=== PATIENT | female | born 1970 | race Caucasian/White ===

== ENCOUNTER 2017-12-17 23:49 | Inpatient (IN) | payer OTHER ==
[~2017-12-17] VITALS: Ht 180.3 cm; Wt 75.3 kg
[~2017-12-17 23:49] MED LIST: PRZC/10 PO
[2017-12-17 23:50] VITALS: Ht 180.3 cm; Wt 75.3 kg
[2017-12-18] VITALS (7 sets, daily range): BP systolic 107–134; BP diastolic 59–107; PULSE 57–130; TEMP 36.7–37.2; O2SAT 92–100
[2017-12-18] MEDS ORDERED: ONDANSETRON INJ 2 MG/ML 2 ML VIAL IV STA (00:07)
[2017-12-18] MEDS ORDERED: MULTI-VITAMIN INFUSION INJ 10 ML, THIAMINE HCL INJ 100 MG, FoLIC ACID INJ 1 MG in SODIU... IV ONE (00:15)
[2017-12-18] MEDS ORDERED: SODIUM CHLORIDE 0.9% 1000ML 1,000 ML IV ONE (00:15)
[2017-12-18] MEDS ORDERED: PANTOprazole INJ 40 MG in SYRINGE 0 ML IV ONE (00:15)
[2017-12-18 00:25] LABS: HEMATOCRIT 40.7 % (37-47); HEMOGLOBIN 13.7 g/dL (12.0-16.0); MEAN CELL VOLUME 99.8 fL (80-100); MEAN CORPUSCULAR HEMOGLOBIN 33.6 pg (25-34); MEAN CORPUSCULAR HGB CONC 33.7 g/dl (32-36); MEAN PLATELET VOLUME 10.4 fL (7.4-10.4); PLATELET COUNT 167 K/uL (130-400); RED CELL DISTRIBUTION WIDTH CV 14.6 % (11.5-14.5); RED CELL DISTRIBUTION WIDTH SD 53.5 fL (36.4-46.3); WHITE BLOOD COUNT 4.45 K/uL (4.8-10.8)
[2017-12-18 00:37] LABS: INR 1.2 (0.9-1.1); PTT PATIENT 28.2 SECONDS (21.0-31.0)
[2017-12-18 00:55] LABS: ALBUMIN 3.5 gm/dl (3.4-5.0); ALKALINE PHOSPHATASE 185 U/L (45-117); ALT/SGPT 179 U/L (12-78); AST/SGOT 296 U/L (15-37); BLOOD UREA NITROGEN 2 mg/dl (7-18); CALCIUM 7.6 mg/dl (8.5-10.1); CARBON DIOXIDE 26 mmol/L (21-32); CREATININE 0.75 mg/dl (0.60-1.20); GLUCOSE 140 mg/dl (70-99); LIPASE 163 U/L (73-393); POTASSIUM 3.6 mmol/L (3.5-5.1); SODIUM 141 mmol/L (136-145); TOTAL PROTEIN 8.4 gm/dl (6.4-8.2)
[2017-12-18 01:18] LABS: BASO % 0.9 %; BASO ABS # 0.04 K/uL (0-0.2); EOS % 0.4 %; EOS ABS # 0.02 K/uL (0-0.5); IG# 0.01 K/uL (0.00-0.02); LYMPH % 56.4 %; LYMPH ABS # 2.51 K/uL (1.2-3.4); MONO % 5.6 %; MONO ABS # 0.25 K/uL (0.11-0.59); NEUT % 36.5 %; NEUT ABS # 1.62 K/uL (1.4-6.5)
--- NOTE | 2017-12-18 02:55 | EMERGENCY ROOM VISIT NOTE ---
History First contact with patient: 23:54 Chief Complaint: VOMITING Stated Complaint: ALCOHOL WITHDRAWL Nursing Triage Summary: pt arrives ALS from home. pt has been 1/2 to 1 bottle of Vodka per day drinker for 20+ years. pt quit cold turkey 2 days ago. pt reports unable to keep anything down. pt with nausea and vomiting, tremors. pt reports vomiting blood and bloody diarrhea. pt hx of kidney failure and liver cirohsis. coffee ground emesis. pt c/o kidney, liver and abdominal pain 10. pt received 4mg IV Zofran and 2mg IV Ativan prehospital, 750ml NSS infused prehospital. pt had recent admission to [facility] for same symptoms. History of Present Illness The patient is a 47 year old female who presents to the Emergency Room with complaints of concerns for alcohol withdrawal. The patient is well-known to this emergency department. She is an alcoholic and admits to drinking one half to 1 full bottle of vodka daily. The patient reports that her last drink was 2 days ago. She felt shaky and contacted an ambulance. She has been having nausea with vomiting today. The patient states that she did vomit red material , and was concerned that it may have been blood. She does have a history of cirrhosis and hepatitis. She was given Zofran and Ativan prehospital. She feels significantly improved after these interventions and rates her current discomfort as 0/10. The patient evidently has had 2 admissions in the past 3-1/ 2 weeks to [facility] for alcohol withdrawal symptoms. She did leave AGAINST MEDICAL ADVICE from her first admission there, and on subsequent readmission she refused to speak with a drug and alcohol counselor while at their facility. Because of her comorbid medical conditions she is difficult to place in a drug and alcohol rehabilitation facility. The patient does not report fever or chills. She does have some intermittent abdominal and chest discomfort with the vomiting, however this is not currently present. There is a past history of bipolar disorder and poly-pharmacologic drug abuse. Review of Systems More than 10 systems were reviewed and otherwise negative with the exception of history of present illness. Past Medical/Surgical History Medical Problems: (1) Alcohol dependence (2) Alcohol withdrawal (3) Alcoholism (4) Chronic pancreatitis (5) Chronic renal failure, stage 3 (moderate) (6) Cirrhosis, alcoholic (7) Depression not otherwise specified (8) Fall (9) Liver cancer (10) Mild recurrent major depression (11) Past Psych Meds (12) s/p cholecystectomy (13) Viral hepatitis C Family History Patient reports no known family medical history. Social History Smoking Status: Current Every Day Smoker Alcohol Use: heavy Drug Use: cocaine Marital Status: single, Housing Status: lives with family Occupation Status: unemployed Current/Historical Medications No Active Prescriptions or Reported Meds Physical Exam Vital Signs Date Time Temp Pulse Resp B/P (MAP) Pulse Ox O2 Delivery O2 Flow Rate FiO2 12/18/17 05:06 60 16 100 Nasal Cannula 2.0 12/18/17 05:01 100/74 12/18/17 04:36 67 15 100 Nasal Cannula 2.0 12/18/17 04:31 114/81 12/18/17 04:06 50 15 99 Nasal Cannula 2.0 12/18/17 04:01 76 20 96/60 99 Nasal Cannula 2.0 12/18/17 03:31 75 20 102/72 99 Nasal Cannula 2.0 12/18/17 03:01 75 16 114/79 99 Nasal Cannula 2.0 12/18/17 02:31 46 15 104/73 99 Nasal Cannula 2.0 12/18/17 02:01 88 20 111/70 99 Nasal Cannula 2.0 12/18/17 01:37 79 12/18/17 01:31 52 16 121/69 100 Nasal Cannula 2.0 12/18/17 01:01 81 18 110/76 98 Nasal Cannula 2.0 12/18/17 00:33 98 Nasal Cannula 2.0 12/18/17 00:31 78 18 112/75 98 Nasal Cannula 2.0 12/18/17 00:31 78 Room Air 12/18/17 00:25 73 12/18/17 00:17 70 12 111/76 97 Room Air 12/17/17 23:50 37.0 70 20 95/69 96 Room Air Physical Exam VITALS: Vitals are noted on the nurse's note and reviewed by myself. Vital signs stable. GENERAL: White female who appears anxious but otherwise cooperative. HEAD: Normocephalic atraumatic. MOUTH: Mucous membranes moist. Tonsils are not enlarged. Pharynx without erythema, blood, or exudate. Uvula midline. Airway patent. NECK: Supple without nuchal rigidity. No lymphadenopathy. No thyromegaly. Cervical spine is nontender. HEART: Regular rate and rhythm without murmurs gallops or rubs. LUNGS: Clear to auscultation bilaterally without wheezes, rales or rhonchi. No retractions or accessory muscle use. ABDOMEN: Positive normal bowel sounds x 4. Soft, nontender, without masses or organomegaly. No guarding or rebound tenderness. MUSCULOSKELETAL: No muscle atrophy, erythema, or edema noted. Full range of motion in all extremities. NEURO: Patient was alert and oriented to person place and time. CN II through XII grossly intact. No focal neurological deficits. Deep tendon reflexes 2+ throughout. Medical Decision & Procedures Laboratory Results 12/18/17 00:09 Red Blood Count 4.08, Mean Corpuscular Volume 99.8, Mean Corpuscular Hemoglobin 33.6, Mean Corpuscular Hemoglobin Concent 33.7, Mean Platelet Volume 10.4, Neutrophils (%) (Auto) 36.5, Lymphocytes (%) (Auto) 56.4, Monocytes (%) (Auto) 5.6, Eosinophils (%) (Auto) 0.4, Basophils (%) (Auto) 0.9, Neutrophils # (Auto) 1.62, Lymphocytes # (Auto) 2.51, Monocytes # (Auto) 0.25, Eosinophils # (Auto) 0.02, Basophils # (Auto) 0.04 12/18/17 00:09 Test 12/18/17 00:09 12/18/17 00:40 12/18/17 02:55 White Blood Count 4.45 K/uL (4.8-10.8) Red Blood Count 4.08 M/uL (4.2-5.4) Hemoglobin 13.7 g/dL (12.0-16.0) Hematocrit 40.7 % (37-47) Mean Corpuscular Volume 99.8 fL (80-100) Mean Corpuscular Hemoglobin 33.6 pg (25-34) Mean Corpuscular Hemoglobin Concent 33.7 g/dl (32-36) Platelet Count 167 K/uL (130-400) Mean Platelet Volume 10.4 fL (7.4-10.4) Neutrophils (%) (Auto) 36.5 % Lymphocytes (%) (Auto) 56.4 % Monocytes (%) (Auto) 5.6 % Eosinophils (%) (Auto) 0.4 % Basophils (%) (Auto) 0.9 % Neutrophils # (Auto) 1.62 K/uL (1.4-6.5) Lymphocytes # (Auto) 2.51 K/uL (1.2-3.4) Monocytes # (Auto) 0.25 K/uL (0.11-0.59) Eosinophils # (Auto) 0.02 K/uL (0-0.5) Basophils # (Auto) 0.04 K/uL (0-0.2) RDW Standard Deviation 53.5 fL (36.4-46.3) RDW Coefficient of Variation 14.6 % (11.5-14.5) Immature Granulocyte % (Auto) 0.2 % Immature Granulocyte # (Auto) 0.01 K/uL (0.00-0.02) Red Blood Cell Morphology Unremarkable Prothrombin Time 12.6 SECONDS (9.0-12.0) Prothromb Time International Ratio 1.2 (0.9-1.1) Activated Partial Thromboplast Time 28.2 SECONDS (21.0-31.0) Partial Thromboplastin Ratio 1.1 D-Dimer 370 ug/L FEU (0-500) Anion Gap 10.0 mmol/L (3-11) Est Creatinine Clear Calc Drug Dose 101.4 ml/min Estimated GFR () 108.5 Estimated GFR (Non- 93.6 BUN/Creatinine Ratio 2.3 (10-20) Calcium Level 7.6 mg/dl (8.5-10.1) Magnesium Level 1.7 mg/dl (1.8-2.4) Total Bilirubin 1.0 mg/dl (0.2-1) Aspartate Amino Transf (AST/SGOT) 296 U/L (15-37) Alanine Aminotransferase (ALT/SGPT) 179 U/L (12-78) Alkaline Phosphatase 185 U/L (45-117) Troponin I < 0.015 ng/ml (0-0.045) Total Protein 8.4 gm/dl (6.4-8.2) Albumin 3.5 gm/dl (3.4-5.0) Globulin 4.9 gm/dl (2.5-4.0) Albumin/Globulin Ratio 0.7 (0.9-2) Lipase 163 U/L (73-393) Salicylates Level < 1.7 mg/dl (2.8-20) Acetaminophen Level < 2 ug/ml (10-30) Ethyl Alcohol mg/dL 286.0 mg/dl (0-3) Ammonia 24.0 umol/L (11-32) Urine Color YELLOW Urine Appearance CLEAR (CLEAR) Urine pH 8.0 (4.5-7.5) Urine Specific [place] 1.011 (1.000-1.030) Urine Protein NEG (NEG) Urine Glucose (UA) NEG (NEG) Urine Ketones NEG (NEG) Urine Occult Blood NEG (NEG) Urine Nitrite NEG (NEG) Urine Bilirubin NEG (NEG) Urine Urobilinogen NEG (NEG) Urine Leukocyte Esterase NEG (NEG) Urine Opiates Screen NEG (NEG) Urine Methadone, Qualitative NEG (NEG) Urine Barbiturates NEG (NEG) Urine Phencyclidine (PCP) Level NEG (NEG) Ur Amphetamine/Methamphetamine NEG (NEG) MDMA (Ecstasy) Screen NEG (NEG) Urine Benzodiazepines Screen POS (NEG) Urine Cocaine Metabolite NEG (NEG) Urine Marijuana (THC) NEG (NEG) Medications Administered Medications (Trade) Dose Ordered Sig/John Route Start Time Stop Time Status Last Admin Dose Admin Multivitamins 10 ml/Thiamine HCl 100 mg/Folic Acid 1 mg/Sodium Chloride 1,011.2 ml @ 200 mls/ hr Q5H4M ONCE IV 12/18/17 00:15 12/18/17 05:18 DC 12/18/17 01:11 200 MLS/HR Sodium Chloride 1,000 ml @ 999 mls/hr Q1H1M ONCE IV 12/18/17 00:15 12/18/17 01:15 DC 12/18/17 00:22 999 MLS/HR Ondansetron HCl (Zofran Inj) 4 mg NOW STAT IV 12/18/17 00:07 12/18/17 00:11 DC 12/18/17 01:29 4 MG Pantoprazole Sodium 40 mg/ Syringe 10 ml @ 5 mls/min NOW ONCE IV 12/18/17 00:15 12/18/17 00:18 DC 12/18/17 01:11 5 MLS/MIN Lorazepam (Ativan Inj) 1 mg NOW STAT IV 12/18/17 04:26 12/18/17 04:27 DC 12/18/17 04:39 1 MG ED Course Physical exam and history were performed. Nursing notes, EMR, and Medication List were personally reviewed. Patient appears to be an alcoholic who is concerned about withdrawal. She has had nausea and vomiting today, and reportedly has not had alcohol in the past 48 hours. IV access x2 was established. Labs were obtained. The patient was given 1 L normal saline and 1 L multivitamin solution. The patient was given additional Zofran here in the department. Because of the reported history of vomiting she was given IV Protonix. She was placed on a hall monitor. Chest x-ray was performed. EKG did not show acute ischemic event per my interpretation. Written consent was performed to receive records from [facility], which were obtained and reviewed. She has had recent CT scan of the head, abdomen, and pelvis, as well as ultrasound of her abdomen, which did not show significant acute findings in the past month. The patient's blood work is as above and was reviewed. She does not have a significantly elevated white blood cell count or gross anemia. She does have a history of thrombocytopenia in the past, however her platelet count is normal today. Her INR is 1.2. D-dimer and troponin x1 are both negative. Glucose is 140. Magnesium is 1.7. AST 296 and ALT 179 with an alk phos of 185 are noted. This appears consistent with her history of hepatitis. Drug of abuse screen is negative and urine is without obvious signs of infection. The patient's ethyl alcohol is 286 despite her claim that she has not had anything to drink in the past 2 days. I discussed options of care with both the patient as well as with case management. The patient is likely best served by appropriate rehabilitation facility, however we are not able to provide the services here. We attempted to place the patient via referral to [facility], however they were not willing to accept the patient because they do not have beds. On reevaluation the patient was sleeping comfortably in her bed. She has had several episodes of low pulse ox while sleeping, which could be related to apnea. Chest x-ray was reviewed by myself without showing obvious pneumonia or other chest etiology for this. The patient does not appear well for discharge home. She is a chronic alcoholic and is requesting services. She was given an additional dose of Ativan after several hours to help prevent seizing. My concern is that as her alcohol decreases she will end up in DTs. I also have concern for a strong mental health component to her visits recently. She continues to have high levels of alcohol between [facility] and [facility], stating that she has not been drinking for several days. Overall the patient case was discussed with the on-call hospitalist who agreed to evaluate the patient. Please see their dictation for further patient course , plan, and disposition. The chart was completed utilizing [employer] Speech Voice Recognition Software. Grammatical errors, random word insertions, pronoun errors, and incomplete sentences are an occasional consequence of this system due to software limitations, ambient noise, and hardware issues. Any formal questions or concerns about the content, text, or information contained within the body of this dictation should be directly addressed to the provider for clarification. . Medical Decision Differential diagnosis: Etiologies such as alcohol intoxication, toxicologic, infection, hypoglycemia, electrolyte abnormalities, cardiac sources, intracerebral event, neurologic, as well as others were entertained. Impression Primary Impression: Alcoholism Departure Information Prescriptions No Active Prescriptions or Reported Meds Referrals No Doctor, Assigned (PCP) Patient Instructions My [facility]
[2017-12-18] MEDS ORDERED: LORAZEPAM 2 MG/ML 1 ML VIAL IV STA (04:26)
[2017-12-18] MEDS ORDERED: GABAPENTIN 800 MG TAB PO SCH (05:45)
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
[2017-12-18] MEDS: NSS + 20MEQ KCL 1000ML 1,000 ML IV SCH ×3 (06:43→23:09)
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
[2017-12-18] MEDS ORDERED: GABAPENTIN 800MG LOADING DOSE PO ONE (08:00)
[2017-12-18] MEDS: LORAZEPAM 2 MG/ML 1 ML VIAL IV PRN ×3 (08:46→23:18)
[2017-12-18] MEDS ORDERED: THIAMINE HCL 100 MG TAB PO SCH (09:00)
[2017-12-18] MEDS: NEPHROCAPS PO SCH (10:13)
[2017-12-18] MEDS: ONDANSETRON INJ 2 MG/ML 2 ML VIAL IV PRN ×2 (11:13→23:18)
[2017-12-18] MEDS ORDERED: THIAMINE HCL INJ 200 MG in SODIUM CHLORIDE 0.9% 50ML 50 ML IV ONE (13:00)
[2017-12-18] MEDS: MAGNESIUM SULFATE 1GM / D5W 100 ML IV SCH ×2 (13:40→14:36)
[2017-12-18] MEDS: GABAPENTIN 400MG Q6H DOSE PO SCH ×2 (14:36→20:01)
[2017-12-18] MEDS: PANTOprazole INJ 40 MG in SYRINGE 0 ML IV SCH (20:01)
[2017-12-18] MEDS: THIAMINE HCL INJ 200 MG in SODIUM CHLORIDE 0.9% 50ML 50 ML IV SCH (20:01)
[2017-12-19 03:22] VITALS: BP 130/82; PULSE 79; TEMP 37.1; O2SAT 97
[2017-12-19] MEDS: GABAPENTIN 400MG Q8H DOSE PO SCH ×3 (04:17→20:22)
[2017-12-19] MEDS: LORAZEPAM 2 MG/ML 1 ML VIAL IV PRN ×8 (05:13→22:21)
--- NOTE | 2017-12-19 05:23 | Progress Note ---
Subjective Date of Service: Dec 18, 2017. Subjective Pt evaluation today including: conversation w/ patient, physical exam, chart review, lab review, review of studies (CT abd/pelvis and u/s of abdomen from [facility]), review of inpatient medication list Pain: high epigastric region PO Intake: fair at best Voiding: no voiding problems patient with significant tremors/shakiness and waxing/waning BPs during my visit she was awake/alert during the encounter she voiced a desire to go to inpatient etoh rehab following this hospitalization she has had 2 recent hospital stays at [facility] for etoh withdrawal her last inpatient rehab stay was about 6 months ago in [facility] she has struggled w/ etoh for many years, drinking hard liquor daily Problem List Medical Problems: (1) Alcoholism Status: Acute (2) Fracture of first metatarsal bone of right foot Status: Acute Objective Vital Signs Date Time Temp Pulse Resp B/P (MAP) Pulse Ox O2 Delivery O2 Flow Rate FiO2 12/18/17 16:00 Nasal Cannula 2.0 12/18/17 15:08 37.2 83 20 122/79 (93) 96 Room Air 12/18/17 12:51 61 18 127/76 (93) 100 Nasal Cannula 2.0 12/18/17 11:29 36.9 62 18 113/80 (91) 99 Nasal Cannula 2.0 12/18/17 11:07 37.0 130 20 134/107 (116) 92 Room Air 12/18/17 08:30 Nasal Cannula 2.0 12/18/17 07:57 36.7 57 18 131/82 (98) 99 Nasal Cannula 3.0 12/18/17 06:01 66 14 113/79 100 12/18/17 05:41 71 14 99 Nasal Cannula 2.0 12/18/17 05:38 73 12/18/17 05:31 125/79 12/18/17 05:11 65 14 100 Nasal Cannula 2.0 12/18/17 05:06 60 16 100 Nasal Cannula 2.0 12/18/17 05:01 100/74 12/18/17 04:36 67 15 100 Nasal Cannula 2.0 12/18/17 04:31 114/81 12/18/17 04:06 50 15 99 Nasal Cannula 2.0 12/18/17 04:01 76 20 96/60 99 Nasal Cannula 2.0 12/18/17 03:31 75 20 102/72 99 Nasal Cannula 2.0 12/18/17 03:01 75 16 114/79 99 Nasal Cannula 2.0 12/18/17 02:31 46 15 104/73 99 Nasal Cannula 2.0 12/18/17 02:01 88 20 111/70 99 Nasal Cannula 2.0 12/18/17 01:37 79 12/18/17 01:31 52 16 121/69 100 Nasal Cannula 2.0 12/18/17 01:01 81 18 110/76 98 Nasal Cannula 2.0 12/18/17 00:33 98 Nasal Cannula 2.0 12/18/17 00:31 78 18 112/75 98 Nasal Cannula 2.0 12/18/17 00:31 78 Room Air 12/18/17 00:25 73 12/18/17 00:17 70 12 111/76 97 Room Air 12/17/17 23:50 37.0 70 20 95/69 96 Room Air Physical Exam General Appearance: + mild distress (severe tremors, shakiness) ENT: pharynx normal Neck: no JVD Respiratory/Chest: lungs clear, no respiratory distress, no accessory muscle use Cardiovascular: regular rate, rhythm, no gallop, no murmur Abdomen: normal bowel sounds, soft, no organomegaly, + tenderness (epigastric region), + pertinent finding (no apparent ascites) Extremities: no pedal edema Neurologic/Psychiatric: alert, oriented x 3, + pertinent finding (severe tremors) Laboratory Results Last 24 Hours Test 12/18/17 00:09 12/18/17 00:40 12/18/17 02:55 White Blood Count 4.45 K/uL Red Blood Count 4.08 M/uL Hemoglobin 13.7 g/dL Hematocrit 40.7 % Mean Corpuscular Volume 99.8 fL Mean Corpuscular Hemoglobin 33.6 pg Mean Corpuscular Hemoglobin Concent 33.7 g/dl Platelet Count 167 K/uL Mean Platelet Volume 10.4 fL Neutrophils (%) (Auto) 36.5 % Lymphocytes (%) (Auto) 56.4 % Monocytes (%) (Auto) 5.6 % Eosinophils (%) (Auto) 0.4 % Basophils (%) (Auto) 0.9 % Neutrophils # (Auto) 1.62 K/uL Lymphocytes # (Auto) 2.51 K/uL Monocytes # (Auto) 0.25 K/uL Eosinophils # (Auto) 0.02 K/uL Basophils # (Auto) 0.04 K/uL RDW Standard Deviation 53.5 fL RDW Coefficient of Variation 14.6 % Immature Granulocyte % (Auto) 0.2 % Immature Granulocyte # (Auto) 0.01 K/uL Red Blood Cell Morphology Unremarkable Prothrombin Time 12.6 SECONDS Prothromb Time International Ratio 1.2 Activated Partial Thromboplast Time 28.2 SECONDS Partial Thromboplastin Ratio 1.1 D-Dimer 370 ug/L FEU Sodium Level 141 mmol/L Potassium Level 3.6 mmol/L Chloride Level 105 mmol/L Carbon Dioxide Level 26 mmol/L Anion Gap 10.0 mmol/L Blood Urea Nitrogen 2 mg/dl Creatinine 0.75 mg/dl Est Creatinine Clear Calc Drug Dose 101.4 ml/min Estimated GFR () 108.5 Estimated GFR (Non- 93.6 BUN/Creatinine Ratio 2.3 Random Glucose 140 mg/dl Calcium Level 7.6 mg/dl Magnesium Level 1.7 mg/dl Total Bilirubin 1.0 mg/dl Aspartate Amino Transf (AST/SGOT) 296 U/L Alanine Aminotransferase (ALT/SGPT) 179 U/L Alkaline Phosphatase 185 U/L Troponin I < 0.015 ng/ml Total Protein 8.4 gm/dl Albumin 3.5 gm/dl Globulin 4.9 gm/dl Albumin/Globulin Ratio 0.7 Lipase 163 U/L Salicylates Level < 1.7 mg/dl Acetaminophen Level < 2 ug/ml Ethyl Alcohol mg/dL 286.0 mg/dl Ammonia 24.0 umol/L Urine Color YELLOW Urine Appearance CLEAR Urine pH 8.0 Urine Specific [place] 1.011 Urine Protein NEG Urine Glucose (UA) NEG Urine Ketones NEG Urine Occult Blood NEG Urine Nitrite NEG Urine Bilirubin NEG Urine Urobilinogen NEG Urine Leukocyte Esterase NEG Urine Opiates Screen NEG Urine Methadone, Qualitative NEG Urine Barbiturates NEG Urine Phencyclidine (PCP) Level NEG Ur Amphetamine/Methamphetamine NEG MDMA (Ecstasy) Screen NEG Urine Benzodiazepines Screen POS Urine Cocaine Metabolite NEG Urine Marijuana (THC) NEG Assessment and Plan 47yo female - 1. etoh withdrawal - gabapentin protocol; ativan IV prn. IVF. 2. alcoholic gastritis - IV PPI twice a day. Change to clears from full liquids. 3. alcoholism - social work aware of desire to attend inpatient rehab after discharge. Increase thiamine to 200mg BID. Folic acid. MVI. Gabapentin and ativan. Fluids. 4. HepC cirrhosis - no signs of decompensation at this time. 5. hypomagnesemia - replace IV, repeat mag level am. 6. extra beats - could be due to #5 and stress of #1 - continue telemetry monitoring. 7. abnormal LFTs - 2nd to alcohol and underlying liver disease - repeat LFTs am for stability. 8. FEN - IVF, clears, bmp/mag am. 9. DVT proph - if platelets are stable in am then start lovenox 40mg daily. Continued [facility] stay due to: inadequate po fluid intake, multiple IV medications needed Discharge planning: uncertain
[2017-12-19 05:58] LABS: HEMATOCRIT 33.2 % (37-47); MEAN CELL VOLUME 101.5 fL (80-100); MEAN CORPUSCULAR HEMOGLOBIN 33.6 pg (25-34); MEAN CORPUSCULAR HGB CONC 33.1 g/dl (32-36); RED CELL DISTRIBUTION WIDTH SD 52.2 fL (36.4-46.3); WHITE BLOOD COUNT 2.69 K/uL (4.8-10.8)
[2017-12-19 06:17] LABS: MEAN PLATELET VOLUME 10.8 fL (7.4-10.4); PLATELET COUNT 93 K/uL (130-400)
[2017-12-19 06:19] LABS: BASO % 0.7 %; BASO ABS # 0.02 K/uL (0-0.2); EOS % 2.6 %; EOS ABS # 0.07 K/uL (0-0.5); LYMPH % 46.8 %; LYMPH ABS # 1.26 K/uL (1.2-3.4); MONO % 9.3 %; MONO ABS # 0.25 K/uL (0.11-0.59); NEUT % 40.6 %; NEUT ABS # 1.09 K/uL (1.4-6.5)
[2017-12-19 06:34] LABS: ALBUMIN 2.6 gm/dl (3.4-5.0); CALCIUM 7.1 mg/dl (8.5-10.1); CREATININE 0.63 mg/dl (0.60-1.20); POTASSIUM 4.2 mmol/L (3.5-5.1); TOTAL PROTEIN 6.5 gm/dl (6.4-8.2)
[2017-12-19 06:52] VITALS: BP 140/78; PULSE 84; TEMP 36.9; O2SAT 93
[2017-12-19] MEDS: NSS + 20MEQ KCL 1000ML 1,000 ML IV SCH ×3 (07:07→22:14)
[2017-12-19] MEDS: ONDANSETRON INJ 2 MG/ML 2 ML VIAL IV PRN ×2 (08:07→16:05)
[2017-12-19] MEDS: NEPHROCAPS PO SCH (08:11)
[2017-12-19] MEDS: THIAMINE HCL INJ 200 MG in SODIUM CHLORIDE 0.9% 50ML 50 ML IV SCH ×2 (08:11→20:24)
[2017-12-19] MEDS: PANTOprazole INJ 40 MG in SYRINGE 0 ML IV SCH ×2 (08:11→20:22)
[2017-12-19] MEDS: SUCRALFATE 1 GM/10 ML UDC PO SCH ×3 (11:50→20:23)
[2017-12-19 12:02] VITALS: BP 128/75; PULSE 49; TEMP 37; O2SAT 95
[2017-12-19 15:49] VITALS: BP 145/92; PULSE 64; TEMP 37.1; O2SAT 93
[2017-12-19 19:22] VITALS: BP 136/84; PULSE 52; TEMP 37.1; O2SAT 95
[2017-12-20] VITALS (8 sets, daily range): BP systolic 105–151; BP diastolic 59–94; PULSE 40–89; TEMP 36.4–37.1; O2SAT 96–99
[2017-12-20] MEDS: LORAZEPAM 2 MG/ML 1 ML VIAL IV PRN ×5 (00:08→19:56)
--- NOTE | 2017-12-20 05:28 | Progress Note ---
Subjective Date of Service: Dec 19, 2017. Subjective Pt evaluation today including: conversation w/ patient, physical exam, chart review, lab review, review of inpatient medication list Pain: epigastric but a little better PO Intake: tolerating some clears Voiding: no voiding problems tele stable overnight still quite shaky but no worse than yesterday no further emesis feels weak when she tries to walk Problem List Medical Problems: (1) Alcoholism Status: Acute (2) Fracture of first metatarsal bone of right foot Status: Acute Review of Systems Constitutional: No fever Respiratory: No shortness of breath, No dyspnea on exertion Cardiac: No chest pain Abdomen: + pain, No nausea, No vomiting, No diarrhea Objective Vital Signs Date Time Temp Pulse Resp B/P (MAP) Pulse Ox O2 Delivery O2 Flow Rate FiO2 12/19/17 08:00 Room Air 12/19/17 06:52 36.9 84 16 140/78 (98) 93 Room Air 12/19/17 03:22 37.1 79 17 130/82 (98) 97 Room Air 12/18/17 23:59 Room Air 12/18/17 23:11 37.1 86 20 107/59 (75) 96 12/18/17 19:53 37.1 92 19 107/59 (75) 94 Room Air 12/18/17 16:00 Nasal Cannula 2.0 12/18/17 15:08 37.2 83 20 122/79 (93) 96 Room Air 12/18/17 12:51 61 18 127/76 (93) 100 Nasal Cannula 2.0 12/18/17 11:29 36.9 62 18 113/80 (91) 99 Nasal Cannula 2.0 12/18/17 11:07 37.0 130 20 134/107 (116) 92 Room Air Physical Exam General Appearance: + mild distress (very shaky, tremulous/tremors) ENT: pharynx normal Neck: no JVD Respiratory/Chest: lungs clear, no respiratory distress, no accessory muscle use Cardiovascular: regular rate, rhythm, no gallop, no murmur Abdomen: normal bowel sounds, soft, no organomegaly, + tenderness (high epigastric region but not as severe as yesterday) Extremities: no pedal edema Neurologic/Psychiatric: alert, oriented x 3, + pertinent finding (significant tremors) Laboratory Results Last 24 Hours Test 12/19/17 05:31 White Blood Count 2.69 K/uL Red Blood Count 3.27 M/uL Hemoglobin 11.0 g/dL Hematocrit 33.2 % Mean Corpuscular Volume 101.5 fL Mean Corpuscular Hemoglobin 33.6 pg Mean Corpuscular Hemoglobin Concent 33.1 g/dl Platelet Count 93 K/uL Mean Platelet Volume 10.8 fL Neutrophils (%) (Auto) 40.6 % Lymphocytes (%) (Auto) 46.8 % Monocytes (%) (Auto) 9.3 % Eosinophils (%) (Auto) 2.6 % Basophils (%) (Auto) 0.7 % Neutrophils # (Auto) 1.09 K/uL Lymphocytes # (Auto) 1.26 K/uL Monocytes # (Auto) 0.25 K/uL Eosinophils # (Auto) 0.07 K/uL Basophils # (Auto) 0.02 K/uL RDW Standard Deviation 52.2 fL RDW Coefficient of Variation 14.0 % Immature Granulocyte % (Auto) 0.0 % Immature Granulocyte # (Auto) 0.00 K/uL Platelet Estimate DECREASED Sodium Level 138 mmol/L Potassium Level 4.2 mmol/L Chloride Level 107 mmol/L Carbon Dioxide Level 26 mmol/L Anion Gap 5.0 mmol/L Blood Urea Nitrogen 3 mg/dl Creatinine 0.63 mg/dl Est Creatinine Clear Calc Drug Dose 120.7 ml/min Estimated GFR () 122.1 Estimated GFR (Non- 105.3 BUN/Creatinine Ratio 5.4 Random Glucose 89 mg/dl Calcium Level 7.1 mg/dl Magnesium Level 1.8 mg/dl Total Bilirubin 1.9 mg/dl Aspartate Amino Transf (AST/SGOT) 159 U/L Alanine Aminotransferase (ALT/SGPT) 112 U/L Alkaline Phosphatase 143 U/L Total Protein 6.5 gm/dl Albumin 2.6 gm/dl Globulin 3.9 gm/dl Albumin/Globulin Ratio 0.7 Assessment and Plan 47yo female - 1. etoh withdrawal - ongoing. Cont gabapentin protocol; ativan IV prn. IVF. Supportive care. 2. alcoholic gastritis - IV PPI twice a day. Add carafate 1gm qid. Stay w/ clears for today. 3. alcoholism - social work aware of desire to attend inpatient rehab after discharge. Cont thiamine 200mg BID. Folic acid. MVI. Gabapentin and ativan. Fluids. 4. HepC cirrhosis - no signs of decompensation at this time. 5. hypomagnesemia - resolved. 6. extra beats - largely resolved. 7. abnormal LFTs - 2nd to alcohol and underlying liver disease - repeat LFTs today modestly improved. 8. FEN - IVF, clears, bmp am. 9. DVT proph - platelets took large drop overnight; defer on chemical means; SCDs only for now. 10. pancytopenia - 2nd to etoh/liver disease? repeat cbc in am. PT, OT evals requested Continued [facility] stay due to: inadequate po fluid intake, multiple IV medications needed Discharge planning: uncertain
[2017-12-20] MEDS: NSS + 20MEQ KCL 1000ML 1,000 ML IV SCH ×2 (05:39→18:47)
[2017-12-20 07:20] LABS: HEMATOCRIT 34.2 % (37-47); HEMOGLOBIN 11.4 g/dL (12.0-16.0); MEAN CELL VOLUME 102.4 fL (80-100); MEAN CORPUSCULAR HEMOGLOBIN 34.1 pg (25-34); MEAN CORPUSCULAR HGB CONC 33.3 g/dl (32-36); RED CELL DISTRIBUTION WIDTH CV 13.8 % (11.5-14.5); RED CELL DISTRIBUTION WIDTH SD 51.6 fL (36.4-46.3); WHITE BLOOD COUNT 3.11 K/uL (4.8-10.8)
[2017-12-20 07:27] LABS: INR 1.3 (0.9-1.1)
[2017-12-20] MEDS: SUCRALFATE 1 GM/10 ML UDC PO SCH ×4 (07:29→19:59)
[2017-12-20] MEDS: GABAPENTIN 400MG Q12H DOSE PO SCH ×2 (07:30→19:56)
[2017-12-20] MEDS: NEPHROCAPS PO SCH (07:30)
[2017-12-20] MEDS: PANTOprazole INJ 40 MG in SYRINGE 0 ML IV SCH ×2 (07:30→19:59)
[2017-12-20] MEDS: THIAMINE HCL INJ 200 MG in SODIUM CHLORIDE 0.9% 50ML 50 ML IV SCH ×2 (07:31→20:01)
[2017-12-20 07:40] LABS: ALBUMIN 2.7 gm/dl (3.4-5.0); CALCIUM 7.8 mg/dl (8.5-10.1); CREATININE 0.64 mg/dl (0.60-1.20); POTASSIUM 4.1 mmol/L (3.5-5.1); TOTAL PROTEIN 6.9 gm/dl (6.4-8.2)
[2017-12-20 08:29] LABS: BASO ABS # 0.03 K/uL (0-0.2); EOS % 4.5 %; EOS ABS # 0.14 K/uL (0-0.5); IG# 0.01 K/uL (0.00-0.02); LYMPH % 47.3 %; LYMPH ABS # 1.47 K/uL (1.2-3.4); MEAN PLATELET VOLUME 11.4 fL (7.4-10.4); MONO % 6.4 %; NEUT % 40.5 %; NEUT ABS # 1.26 K/uL (1.4-6.5); PLATELET COUNT 80 K/uL (130-400)
[2017-12-20] MEDS: ONDANSETRON INJ 2 MG/ML 2 ML VIAL IV PRN (09:58)
[2017-12-20] MEDS: OXYBUTYNIN CHLORIDE 5 MG TAB PO PRN (19:56)
[2017-12-21] VITALS (7 sets, daily range): BP systolic 90–127; BP diastolic 60–84; PULSE 38–61; TEMP 36.6–36.9; O2SAT 96–97
[2017-12-21] MEDS: LORAZEPAM 2 MG/ML 1 ML VIAL IV PRN ×2 (00:33→07:29)
--- NOTE | 2017-12-21 06:44 | Progress Note ---
Subjective Date of Service: Dec 20, 2017. Subjective Pt evaluation today including: conversation w/ patient, physical exam, chart review, lab review, review of inpatient medication list Pain: abd pain resolved PO Intake: requests diet advancement Voiding: voiding difficulty (urinary frequency ) tele stable although having periods of significant sinus bradycardia when she is in deep sleep NO AV block or pauses she overall feels better less shakiness no dyspnea still wondering/thinking about inpatient alcohol rehab she is VERY weak today Problem List Medical Problems: (1) Alcoholism Status: Acute (2) Fracture of first metatarsal bone of right foot Status: Acute Review of Systems Constitutional: + fatigue, No fever Respiratory: No shortness of breath, No dyspnea on exertion Cardiac: No chest pain Abdomen: No pain Objective Vital Signs Date Time Temp Pulse Resp B/P (MAP) Pulse Ox O2 Delivery O2 Flow Rate FiO2 12/20/17 19:58 36.5 89 16 140/76 (97) 96 Room Air 12/20/17 15:39 36.5 52 18 145/66 (92) 98 Room Air 12/20/17 12:12 37.1 52 18 143/93 (110) 97 Room Air 12/20/17 08:00 Room Air 12/20/17 06:37 36.6 41 18 151/59 (89) 97 Room Air 12/20/17 03:39 36.4 41 20 105/94 (98) 98 Room Air 12/20/17 00:05 36.8 47 21 150/80 (103) 99 Room Air 12/20/17 00:01 Room Air Physical Exam General Appearance: no apparent distress, + pertinent finding (awake, alert, oriented; less shaky today ) ENT: pharynx normal Neck: no JVD Respiratory/Chest: lungs clear, no respiratory distress, no accessory muscle use Cardiovascular: regular rate, rhythm, no gallop, no murmur Abdomen: normal bowel sounds, non tender, soft, no organomegaly Extremities: no pedal edema Neurologic/Psychiatric: alert, oriented x 3 Laboratory Results Last 24 Hours Test 12/20/17 07:01 12/20/17 17:00 White Blood Count 3.11 K/uL Red Blood Count 3.34 M/uL Hemoglobin 11.4 g/dL Hematocrit 34.2 % Mean Corpuscular Volume 102.4 fL Mean Corpuscular Hemoglobin 34.1 pg Mean Corpuscular Hemoglobin Concent 33.3 g/dl Platelet Count 80 K/uL Mean Platelet Volume 11.4 fL Neutrophils (%) (Auto) 40.5 % Lymphocytes (%) (Auto) 47.3 % Monocytes (%) (Auto) 6.4 % Eosinophils (%) (Auto) 4.5 % Basophils (%) (Auto) 1.0 % Neutrophils # (Auto) 1.26 K/uL Lymphocytes # (Auto) 1.47 K/uL Monocytes # (Auto) 0.20 K/uL Eosinophils # (Auto) 0.14 K/uL Basophils # (Auto) 0.03 K/uL RDW Standard Deviation 51.6 fL RDW Coefficient of Variation 13.8 % Immature Granulocyte % (Auto) 0.3 % Immature Granulocyte # (Auto) 0.01 K/uL Prothrombin Time 13.1 SECONDS Prothromb Time International Ratio 1.3 Sodium Level 138 mmol/L Potassium Level 4.1 mmol/L Chloride Level 107 mmol/L Carbon Dioxide Level 23 mmol/L Anion Gap 8.0 mmol/L Blood Urea Nitrogen 4 mg/dl Creatinine 0.64 mg/dl Est Creatinine Clear Calc Drug Dose 89.3 ml/min Estimated GFR () 121.4 Estimated GFR (Non- 104.8 BUN/Creatinine Ratio 6.4 Random Glucose 83 mg/dl Calcium Level 7.8 mg/dl Total Bilirubin 1.8 mg/dl Aspartate Amino Transf (AST/SGOT) 115 U/L Alanine Aminotransferase (ALT/SGPT) 95 U/L Alkaline Phosphatase 143 U/L Total Protein 6.9 gm/dl Albumin 2.7 gm/dl Globulin 4.2 gm/dl Albumin/Globulin Ratio 0.6 Urine Color YELLOW Urine Appearance CLEAR Urine pH 8.0 Urine Specific [place] 1.006 Urine Protein NEG Urine Glucose (UA) NEG Urine Ketones NEG Urine Occult Blood NEG Urine Nitrite NEG Urine Bilirubin NEG Urine Urobilinogen NEG Urine Leukocyte Esterase TRACE Urine WBC (Auto) 1-5 /hpf Urine RBC (Auto) 0-4 /hpf Urine Hyaline Casts (Auto) 0 /lpf Urine Epithelial Cells (Auto) 5-10 /lpf Urine Bacteria (Auto) NEG Assessment and Plan 47yo female - 1. etoh withdrawal - ongoing but appears improved. No evidence of DTs. Cont gabapentin protocol; ativan IV prn. IVF. Supportive care. 2. alcoholic gastritis - IV PPI twice a day and carafate 1gm qid. Imrpoved. Advance diet as tolerated today. 3. alcoholism - social work aware of desire to attend inpatient rehab after discharge. Cont thiamine 200mg BID. Folic acid. MVI. Gabapentin and ativan. Fluids. 4. HepC cirrhosis - no signs of decompensation at this time. She is aware that in order to treat this she has to achieve sobriety. 5. hypomagnesemia - resolved. 6. extra beats - largely resolved. 7. abnormal LFTs - 2nd to alcohol and underlying liver disease - repeat LFTs today again modestly improved although INR modestly worse. Consider supplementing vitamin K. LFTs and INR in am. 8. FEN - IVF, advance diet to fulls for lunch, then regular for dinner. Labs am. 9. DVT proph - platelets took large drop overnight; defer on chemical means; SCDs only for now. 10. pancytopenia - 2nd to etoh/liver disease? repeat cbc in am. today's levels seem to be plateauing. 11. urinary frequency/urgency - u/a not suspicious for UTI. Bladder scan PVR < 25cc. Ditropan prn ordered. 12. bradycardia - likely due to excessive sedation & sleep. Check TSH to be complete. Cont telemetry. PT, OT evals requested and completed it is uncertain her dispo plan she has voiced wanting to attend inpatient alcohol rehab, but does she need physical rehab first? Continued [facility] stay due to: inadequate po fluid intake, multiple IV medications needed Discharge planning: uncertain
[2017-12-21] MEDS: NEPHROCAPS PO SCH (07:19)
[2017-12-21] MEDS: OXYBUTYNIN CHLORIDE 5 MG TAB PO PRN (07:20)
[2017-12-21] MEDS: SUCRALFATE 1 GM/10 ML UDC PO SCH ×4 (07:20→20:32)
[2017-12-21] MEDS ORDERED: GABAPENTIN 400MG X1 DOSE PO SCH (08:00)
[2017-12-21] MEDS: THIAMINE HCL INJ 200 MG in SODIUM CHLORIDE 0.9% 50ML 50 ML IV SCH ×2 (09:18→20:27)
[2017-12-21] MEDS: PANTOprazole INJ 40 MG in SYRINGE 0 ML IV SCH ×2 (09:18→20:28)
[2017-12-21 09:27] LABS: HEMATOCRIT 35.5 % (37-47); HEMOGLOBIN 11.8 g/dL (12.0-16.0); MEAN CELL VOLUME 101.1 fL (80-100); MEAN CORPUSCULAR HEMOGLOBIN 33.6 pg (25-34); MEAN CORPUSCULAR HGB CONC 33.2 g/dl (32-36); RED CELL DISTRIBUTION WIDTH CV 13.7 % (11.5-14.5); RED CELL DISTRIBUTION WIDTH SD 50.3 fL (36.4-46.3); WHITE BLOOD COUNT 2.88 K/uL (4.8-10.8)
[2017-12-21 09:28] LABS: MEAN PLATELET VOLUME 11.4 fL (7.4-10.4); PLATELET COUNT 85 K/uL (130-400)
[2017-12-21 09:40] LABS: INR 1.3 (0.9-1.1)
[2017-12-21 09:55] LABS: BASO % 0.7 %; BASO ABS # 0.02 K/uL (0-0.2); EOS % 4.2 %; EOS ABS # 0.12 K/uL (0-0.5); LYMPH % 36.5 %; LYMPH ABS # 1.05 K/uL (1.2-3.4); MONO % 5.6 %; MONO ABS # 0.16 K/uL (0.11-0.59); NEUT ABS # 1.53 K/uL (1.4-6.5)
[2017-12-21 10:10] LABS: ALBUMIN 2.8 gm/dl (3.4-5.0); CREATININE 0.78 mg/dl (0.60-1.20); POTASSIUM 3.5 mmol/L (3.5-5.1); TOTAL PROTEIN 7.4 gm/dl (6.4-8.2)
[2017-12-21] MEDS ORDERED: LORAZEPAM 1 MG TAB PO PRN (11:00)
[2017-12-21] MEDS: NSS + 20MEQ KCL 1000ML 1,000 ML IV SCH (12:53)
[2017-12-21] MEDS ORDERED: MAGNESIUM SULFATE 1GM / D5W 100 ML IV STA (17:26)
--- NOTE | 2017-12-21 17:30 | Hospitalist Progress Note ---
Hospitalist Progress Note Date of Service Dec 21, 2017. Subjective Pt evaluation today including: conversation w/ patient Patient received Ativan shortly before I saw her today and was very drowsy and difficult keep awake. She denies hallucinations. She reports that she is leaving tonight because she has "things to get done at home." Discussed the importance of abstinence from drinking and continued stay to continue to detoxify her, but says she is definitely leaving tonight. Telemetry with sinus bradycardia is low as the 30s overnight in the 50s during the day, PVCs. Respiratory: No shortness of breath Cardiovascular: No chest pain Abdomen: No pain, No nausea, No vomiting All Other Systems: Reviewed and Negative Objective Vital Signs Date Time Temp Pulse Resp B/P (MAP) Pulse Ox O2 Delivery O2 Flow Rate FiO2 12/21/17 15:39 36.9 61 16 111/69 (83) 97 Room Air 12/21/17 12:35 36.9 56 18 90/60 (70) 97 Room Air 12/21/17 08:00 Room Air 12/21/17 08:00 36.7 39 24 115/79 (91) 97 Room Air 12/21/17 04:31 36.6 38 19 127/84 (98) 96 Room Air 12/21/17 00:02 Room Air 12/20/17 23:59 36.7 40 16 138/73 (94) 97 Room Air 12/20/17 19:58 36.5 89 16 140/76 (97) 96 Room Air Physical Exam General Appearance: no apparent distress (Lethargic) ENT: hearing grossly normal Neck: trachea midline Respiratory/Chest: lungs clear, normal breath sounds, no respiratory distress, no accessory muscle use Cardiovascular: + bradycardia (With regular rhythm) Abdomen: normal bowel sounds, non tender, soft Extremities: non-tender, normal inspection, no pedal edema, no calf tenderness Neurologic/Psychiatric: + pertinent finding (Drowsy but does wake up and answer some questions and quickly falls back asleep) Skin: normal color, warm/dry, no rash Laboratory Results Last 24 Hours Test 12/21/17 09:16 White Blood Count 2.88 K/uL Red Blood Count 3.51 M/uL Hemoglobin 11.8 g/dL Hematocrit 35.5 % Mean Corpuscular Volume 101.1 fL Mean Corpuscular Hemoglobin 33.6 pg Mean Corpuscular Hemoglobin Concent 33.2 g/dl Platelet Count 85 K/uL Mean Platelet Volume 11.4 fL Neutrophils (%) (Auto) 53.0 % Lymphocytes (%) (Auto) 36.5 % Monocytes (%) (Auto) 5.6 % Eosinophils (%) (Auto) 4.2 % Basophils (%) (Auto) 0.7 % Neutrophils # (Auto) 1.53 K/uL Lymphocytes # (Auto) 1.05 K/uL Monocytes # (Auto) 0.16 K/uL Eosinophils # (Auto) 0.12 K/uL Basophils # (Auto) 0.02 K/uL RDW Standard Deviation 50.3 fL RDW Coefficient of Variation 13.7 % Immature Granulocyte % (Auto) 0.0 % Immature Granulocyte # (Auto) 0.00 K/uL Red Blood Cell Morphology Unremarkable Prothrombin Time 13.4 SECONDS Prothromb Time International Ratio 1.3 Sodium Level 138 mmol/L Potassium Level 3.5 mmol/L Chloride Level 105 mmol/L Carbon Dioxide Level 26 mmol/L Anion Gap 7.0 mmol/L Blood Urea Nitrogen 4 mg/dl Creatinine 0.78 mg/dl Est Creatinine Clear Calc Drug Dose 97.5 ml/min Estimated GFR () 103.5 Estimated GFR (Non- 89.3 BUN/Creatinine Ratio 5.7 Random Glucose 125 mg/dl Calcium Level 8.0 mg/dl Magnesium Level 1.6 mg/dl Total Bilirubin 1.3 mg/dl Aspartate Amino Transf (AST/SGOT) 91 U/L Alanine Aminotransferase (ALT/SGPT) 90 U/L Alkaline Phosphatase 150 U/L Total Protein 7.4 gm/dl Albumin 2.8 gm/dl Globulin 4.6 gm/dl Albumin/Globulin Ratio 0.6 Thyroid Stimulating Hormone (TSH) 2.110 uIu/ml Assessment and Plan This patient is a 47yo female with a history of alcohol dependence and hepatitis C cirrhosis, here for alcohol detoxification. 1. etoh withdrawal - ongoing and still requiring higher doses of IV Ativan. No evidence of DTs. -Cont gabapentin protocol -Continue Ativan IV prn, will also add p.o. Ativan today to use preferentially -Continue IVF -encouraged her to not leave AGAINST MEDICAL ADVICE as she will likely suffer from delirium tremens at home if she abstains from alcohol as she is only 72 hour abstinent elana-versus going home to return to drinking and starting from [facility] -Encouraged inpatient rehab transfer directly from this hospitalization but she declines 2. alcoholic gastritis -improved -Continue IV PPI twice a day and carafate 1gm qid. 3. alcoholism - social work aware of desire to attend inpatient rehab after discharge. Cont thiamine 200mg BID. Folic acid. MVI. Gabapentin and ativan as above. 4. HepC cirrhosis - no signs of decompensation at this time. She is aware that in order to treat this she has to achieve sobriety. INR slightly elevated at 1.3, total bilirubin and LFTs all trending downward -Follow-up with infectious disease as an outpatient when sober 5. hypomagnesemia -ongoing today -Replace with 1 g IV magnesium 6. extra beats, sinus bradycardia-continues but asymptomatic. TSH normal -Continue telemetry monitoring 7. pancytopenia -likely 2nd to etoh/liver disease. Stable today. -Follow CBC 8. urinary frequency/urgency - u/a not suspicious for UTI. Bladder scan PVR < 25cc. Ditropan prn ordered. Prophylaxis-SCDs, no chemical means due to thrombocytopenia and elevated INR Disposition-recommended and highly encouraged the patient to remain hospitalized on telemetry due to continuing high risk of alcohol withdrawal. Patient at this point says that she is leaving hospital no matter what this evening.
--- NOTE | 2017-12-22 19:18 | Discharge Summary ---
Discharge Summary Date of Service Dec 21, 2017. Discharge Summary Admission Date: Dec 18, 2017 at 05:35 Discharge Date: Dec 21, 2017 Discharge Disposition: Home (Patient left AGAINST MEDICAL ADVICE) Principal Diagnosis: Alcohol detoxification/alcohol withdrawal Problems/Secondary Diagnoses: alcohol dependence hepatitis C cirrhosis Suspected alcoholic gastritis hypomagnesemia pancytopenia urinary frequency/urgency Immunizations: Have You Had Influenza Vaccine: Yes Influenza Vaccine Date: Aug 15, 2011 History of Tetanus Vaccine?: unknown Tetanus Immunization Date: Jan 30, 2011 History of Pneumococcal: No History of Hepatitis B Vaccine: Yes Hepatitis Immunization Date: Jan 30, 2011 Procedures: Chest x-ray Consultations: None Medication Reconciliation Medication Profile: No Active Prescriptions or Reported Meds Discharge Exam Patient left AGAINST MEDICAL ADVICE Hospital Course This patient is a 47yo female with a history of alcohol dependence and hepatitis C cirrhosis, here for alcohol detoxification. 1. etoh withdrawal - ongoing and still requiring higher doses of IV Ativan. No evidence of DTs. -Cont gabapentin protocol -Continue Ativan IV prn, will also add p.o. Ativan today to use preferentially -Continue IVF -encouraged her to not leave AGAINST MEDICAL ADVICE as she will likely suffer from delirium tremens at home if she abstains from alcohol as she is only 72 hour abstinent elana-versus going home to return to drinking and starting from [facility] -Encouraged inpatient rehab transfer directly from this hospitalization but she declines 2. alcoholic gastritis -improved -Continue IV PPI twice a day and carafate 1gm qid. 3. alcoholism - social work aware of desire to attend inpatient rehab after discharge. Cont thiamine 200mg BID. Folic acid. MVI. Gabapentin and ativan as above. 4. HepC cirrhosis - no signs of decompensation at this time. She is aware that in order to treat this she has to achieve sobriety. INR slightly elevated at 1.3, total bilirubin and LFTs all trending downward -Follow-up with infectious disease as an outpatient when sober 5. hypomagnesemia -ongoing today -Replace with 1 g IV magnesium 6. extra beats, sinus bradycardia-continues but asymptomatic. TSH normal -Continue telemetry monitoring 7. pancytopenia -likely 2nd to etoh/liver disease. Stable today. -Follow CBC 8. urinary frequency/urgency - u/a not suspicious for UTI. Bladder scan PVR < 25cc. Ditropan prn ordered. Prophylaxis-SCDs, no chemical means due to thrombocytopenia and elevated INR Disposition-recommended and highly encouraged the patient to remain hospitalized on telemetry due to continuing high risk of alcohol withdrawal. Patient at this point says that she is leaving hospital no matter what this evening. Total Time Spent: Less than 30 minutes This includes examination of the patient, discharge planning, medication reconciliation, and communication with other providers. Discharge Instructions Please refer to the electronic Patient Visit Report (Discharge Instructions) for additional information.
== END 2017-12-21 22:58 | disposition left against medical advice (07) | DRG 894 ==
LOC: EDBD 23:49 → C.EDB 23:51 → C.2E 12-18 05:35 → ENRESERV 12-18 05:41
PROVIDERS: ADMIT Hospitalist; ATTEND Family Medicine
DX: F10.239 Alcohol dependence with withdrawal, unspecified (principal); F17.200 Nicotine dependence, unspecified, uncomplicated; Z88.6 Allergy status to analgesic agent; Z88.8 Allergy status to other drugs, medicaments and biological substances; K70.30 Alcoholic cirrhosis of liver without ascites; B19.20 Unspecified viral hepatitis C without hepatic coma; K29.20 Alcoholic gastritis without bleeding; E83.42 Hypomagnesemia

== ENCOUNTER 2018-05-23 20:20 | Inpatient (IN) ==
[2018-05-23 20:59] LABS: Appearance Urine Clear (Clear); Blood Urine Negative (Negative); Color Urine Dark Yellow; Glucose Urine UA Negative (Negative); Ketones Urine Negative (Negative); Leukocyte Esterase Urine Negative (Negative); Nitrite Urine Negative (Negative); Protein Urine Negative (Negative); Specific Gravity Urine 1.017 (1.000-1.030); Urobilinogen Urine Positive (Negative); pH Urine 7.5 (4.5-7.5)
[2018-05-23 21:02] LABS: Bilirubin Urine Negative (Negative); Ictotest Urine Negative (Negative)
[2018-05-23 21:27] LABS: Amphetamines+Metham, Urine Neg (Neg); Barbiturates, Urine Neg (Neg); Benzodiazepine, Urine Pos (Neg); Cocaine, Urine Neg (Neg); MDMA (Ecstacy), Urine Neg (Neg); Methadone, Urine Neg (Neg); Opiate, Urine Neg (Neg); Phencyclidine, Urine Neg (Neg)
[2018-05-23 21:55] LABS: Alanine Aminotransferase 47 U/L (12-78); Albumin Globulin Ratio 0.4 (0.9-2); Albumin Level 2.2 gm/dl (3.4-5.0); Alkaline Phosphatase 181 U/L (45-117); Aspartate Aminotransferase 139 U/L (15-37); BUN Creatinine Ratio 6.2 (10-20); Bilirubin,Total 1.2 mg/dl (0.2-1); Blood Urea Nitrogen 4 mg/dl (7-18); Calcium 7.1 mg/dl (8.5-10.1); Carbon Dioxide 29 mmol/L (21-32); Chloride 106 mmol/L (98-107); Creatinine Clr Calc Pharmacy 110.7 ml/min; Est GFR (African American) 120.2; Est GFR (Non-African American) 103.7; Globulin 5.9 gm/dl (2.5-4.0); Glucose 101 mg/dl (70-99); Potassium 3.6 mmol/L (3.5-5.1); Sodium 142 mmol/L (136-145); Total Protein 8.1 gm/dl (6.4-8.2)
[2018-05-23 21:59] LABS: Mean Corpuscular Hgb Conc 32.9 g/dL (32-36); Mean Platelet Volume 10.7 fL (7.4-10.4); Platelet Count 55 K/uL (130-400)
[2018-05-23 22:22] LABS: Hematocrit (blood only) 29.2 % (37-47); Hemoglobin 9.6 g/dL (12.0-16.0); RDW Coefficient of Variation 17.4 % (11.5-14.5); RDW Standard Deviation 62.2 fL (36.4-46.3); Red Blood Count 2.95 M/uL (4.2-5.4)
[2018-05-23 22:23] LABS: Basophils # (auto) 0.02 K/uL (0-0.2); Basophils % (auto) 0.8 %; Eosinophils # (auto) 0.06 K/uL (0-0.5); Eosinophils % (auto) 2.3 %; Lymphocytes # (auto) 1.77 K/uL (1.2-3.4); Lymphocytes % (auto) 68.1 %; Monocytes # (auto) 0.23 K/uL (0.11-0.59); Monocytes % (auto) 8.8 %; Neutrophils # (auto) 0.52 K/uL (1.4-6.5)
[2018-05-23 23:50] LABS: INR 1.7 (0.9-1.1); Partial Thromboplastin Ratio 1.3; Partial Thromboplastin Time 34.1 Seconds (21.0-31.0); Prothrombin Time 16.9 Seconds (9.0-12.0)
[2018-05-23 23:53] LABS: Magnesium 1.8 mg/dl (1.8-2.4); Troponin I < 0.015 ng/ml (0-0.045)
--- NOTE | 2018-05-24 00:58 | Emergency Department Note ---
Entered by Antione Mclean acting as a scribe for Jacoby Love MD History of Present Illness General Chief complaint: Illness Stated complaint: EDEMA TO LEGS, VOMITING Time Seen by Provider: 05/23/18 22:44 Source: patient History of Present Illness Onset (ago): hour(s) (prior to arrival) Location: mouth (alcohol intoxication) Pain Consistency: + other (episode) Maximum Pain Intensity: 10 Relieved By: + none Associated symptoms: + nausea/vomiting and + other (leg swelling) The patient is a 47 year old F who presents to the Emergency Room with complaints of an episode of an alcohol intoxication starting prior to arrival. The patient is a poor historian and the HPI is compromised secondary to the patient�s alcohol intoxication. The patient states that she is an alcoholic. The ED nurse notes that the patient has vomiting, nausea and leg swelling. The patient states that she was recently helping her friend move one month ago when she broke her foot. She believes that her leg swelling is a result of this injury. She notes that she also has rib pain. She denies having suicidal ideations. She states that she has a history of kidney and heart problems. She adds that she had pancreatitis. Home Medications Home Medications Medication Instructions Recorded Confirmed Type digestive enzymes 5 cap PO DAILY 05/24/18 05/24/18 History folic acid 1 mg PO DAILY 05/24/18 05/24/18 History gabapentin 400 mg PO QID 05/24/18 05/24/18 History magnesium oxide 400 mg PO BID 05/24/18 05/24/18 History Allergies Allergy/AdvReac Type Severity Reaction Status Date / Time acetaminophen [From Tylenol] AdvReac Intermediate HX Verified 05/24/18 00:25 CIRRHOSIS NSAIDS (Non-Steroidal AdvReac Intermediate HX Verified 05/24/18 00:25 Anti-Inflamma CIRRHOSIS phenytoin AdvReac Intermediate LOSS OF Verified 05/24/18 00:25 EQUILIBRIUM Past Med/Surg History Medical History Liver failure Schizoaffective disorder (Chronic) Arthritis Depression Hypertension Liver disease Thyroid disease Gastritis Liver cancer (Chronic) Alcoholism Acute recurrent pancreatitis (Acute Unknown) 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 hepatitis C (Chronic Unknown) Chronic pancreatitis (Chronic Unknown) Cirrhosis, alcoholic (Chronic) Chronic renal failure, stage 3 (moderate) (Chronic) Polysubstance abuse (Acute) Depression with suicidal ideation (Acute) TIA (transient ischemic attack) (Acute) Hypotension (Acute) Neutropenia (Acute) Pancytopenia (Acute) Anemia (Acute) Hypocalcemia (Acute) Hypernatremia (Acute) Alcohol withdrawal Pancreatitis (Chronic) Alcohol withdrawal Cholecystectomy planned Cholecystectomy planned Hypokalemia Hyponatremia Seizures Surgical History History of appendectomy Cholecystectomy planned Social History marital status: Current Living Situation: Alone current occupational status: unemployed and disabled Other Information That Helps Us Care for You: No Feels Safe at Home: Yes Safety Concerns: Feels Safe At This Time Smoking Status: Current every day smoker Tobacco Type: cigarettes Cigarettes per Day: 20 Do You Dip or Chew Tobacco: No Second Hand Exposure: No Tobacco Cessation Education Requested by Patient: No Hx Alcohol Use: Yes Alcohol type: beer Alcohol Intake Frequency: 3 or more drinks per day Hx Substance Use: No (denies current use, reports heroin x1 as teen) Beliefs That Will Affect Care: None Preferred Language: Zambian Communication Ability: Effective Communication Ability Comment: franklyn marcos, CHALINO elkins at times [employer] Required: No Review of Systems See HPI for pertinent positives & negatives. Unobtainable secondary to alcohol intoxication Physical Exam Vital Signs Vital Signs - 24 hr 05/23/18 20:27 05/23/18 23:00 05/24/18 01:44 Temperature 36.8 C Temperature Source Oral Sepsis Recent Fever Within 48 Hours No Sepsis New/Unexplained Change in Mental Status No Sepsis Action Taken by Nursing No Action Required Pulse Rate 68 85 Pulse Rate [Right Finger] 98 H Pulse Rhythm [Right Finger] Regular Pulse Strength [Right Finger] Normal Respiratory Rate 24 20 20 Respiratory Effort / Characteristics Non-Labored Spontaneous Non-Labored Spontaneous Respiratory Depth Normal Normal Respiratory Pattern Regular Regular Blood Pressure 111/68 105/75 Blood Pressure [Left Arm] 117/72 Blood Pressure Mean 82 Blood Pressure Mean [Left Arm] 87 Blood Pressure Position [Left Arm] Sitting Pulse Oximetry 99 94 97 Oxygen Delivery Method Room Air Room Air Room Air 05/24/18 01:45 05/24/18 02:15 05/24/18 07:21 Temperature 36.8 C Temperature Source Oral Sepsis Recent Fever Within 48 Hours Sepsis New/Unexplained Change in Mental Status Sepsis Action Taken by Nursing Pulse Rate 53 L 81 Pulse Rate [Right Finger] 83 Pulse Rhythm [Right Finger] Pulse Strength [Right Finger] Respiratory Rate 18 Respiratory Effort / Characteristics Respiratory Depth Respiratory Pattern Blood Pressure Blood Pressure [Left Arm] 114/44 L Blood Pressure Mean Blood Pressure Mean [Left Arm] 67 Blood Pressure Position [Left Arm] Pulse Oximetry 96 Oxygen Delivery Method Room Air 05/24/18 07:48 Temperature 36.5 C Temperature Source Oral Sepsis Recent Fever Within 48 Hours Sepsis New/Unexplained Change in Mental Status Sepsis Action Taken by Nursing Pulse Rate Pulse Rate [Right Finger] 99 H Pulse Rhythm [Right Finger] Pulse Strength [Right Finger] Respiratory Rate 16 Respiratory Effort / Characteristics Respiratory Depth Respiratory Pattern Blood Pressure Blood Pressure [Left Arm] 113/67 Blood Pressure Mean Blood Pressure Mean [Left Arm] 82 Blood Pressure Position [Left Arm] Lying Pulse Oximetry 93 Oxygen Delivery Method Room Air GENERAL: Patient is in no acute distress. Alcohol on her breath. HEENT: No acute trauma, normocephalic atraumatic, mucous membranes moist, no nasal congestion, no scleral icterus. NECK: No stridor, no adenopathy, no meningismus, trachea is midline. LUNGS: Clear to auscultation bilaterally, no wheeze, no rhonchi, breath sounds equal. HEART: Without murmurs gallops or rubs, regular rate and rhythm. ABDOMEN: Soft, nontender, bowel sounds positive, no hernias, no peritonitis. EXTREMITIES: No cyanosis, moderate bilateral pedal edema, full range of motion of all the joints without pain or difficulty, no signs for acute trauma. NEUROLOGIC: seems intoxicated with alcohol, slurring words, poor historian, moves all extremities SKIN: No rash, no jaundice, no diaphoresis. Course 2244: Past medical records reviewed. The patient was evaluated in room A6, and a complete history and physical examination were performed. 0025: I reviewed the patient's case with Dr. Zack Alejandra, [facility] Hospitalist. He will evaluate the patient for further management. Consultations Consultation #1: I reviewed the patient's case with Dr. Zack Alejandra, [facility] Hospitalist. He will evaluate the patient for further management. Time: 00:25 Administered Medications Multivitamins 10 ml/ Thiamine HCl 100 mg/ Folic Acid 1 mg/Sodium Chloride 1, 011.2 mls @ 200 mls/hr IV .Q5H4M HUGH Stop: 05/27/18 06:59 Last Admin: 05/24/18 09:01 Dose: 200 mls/hr Lorazepam (Ativan) 1 mg in 2 mls @ 2 mls/min IV UD PRN; Protocol PRN Reason: EtOH Withdrawl AWSS Score 6,7 Stop: 06/23/18 02:05 Last Admin: 05/24/18 06:32 Dose: 2 mls/min Discontinued Medications Multivitamins 10 ml/ Thiamine HCl 100 mg/ Folic Acid 1 mg/Sodium Chloride 1, 011.2 mls @ 1,011.2 mls/hr IV .Q1H HUGH Stop: 05/23/18 23:59 Last Infusion: 05/24/18 01:46 Dose: Admin: 05/23/18 23:58 Dose: 1,011.2 mls/hr Ranitidine HCl 50 mg/ Dextrose 102 mls @ 200 mls/hr IV Q8H HUGH Stop: 06/22/18 22:59 Last Infusion: 05/23/18 23:58 Dose: Admin: 05/23/18 23:23 Dose: 200 mls/hr Lorazepam (Ativan) 1 mg in 2 mls @ 2 mls/min IV NOW STA Stop: 05/24/18 00:00 Last Admin: 05/24/18 00:12 Dose: 2 mls/min Ondansetron HCl (Zofran) 4 mg IV NOW STA Stop: 05/23/18 22:53 Last Admin: 05/23/18 23:23 Dose: 4 mg Medical Decision Making Differential Diagnosis Differential Diagnosis includes: alcohol abuse, renal or liver failure, coagulopathy, anemia, electrolyte abnormality, alcohol withdrawal, suicidality, pancreatitis Medical Records Attestation: I reviewed the patient's medical records. Home Medications Current Medication List: was personally reviewed by me Laboratory Data Attestation: I reviewed the patient's lab results. Result diagrams: 05/24/18 07:41 05/24/18 02:16 Lab Results 05/23/18 05/23/18 05/23/18 Range/Units 20:40 20:40 21:11 WBC 2.60 L (4.8-10.8) K/uL RBC 2.95 L (4.2-5.4) M/uL Hgb 9.6 L (12.0-16.0) g/dL Hct 29.2 L (37-47) % MCV 99.0 (80-100) fL MCH 32.5 (25-34) pg MCHC 32.9 (32-36) g/dL RDW Std Deviation 62.2 H (36.4-46.3) fL RDW Coeff of Michelle 17.4 H (11.5-14.5) % Plt Count 55 L (130-400) K/uL MPV 10.7 H (7.4-10.4) fL Immature Gran % (Auto) 0.0 % Neut % (Auto) 20.0 % Lymph % (Auto) 68.1 % Butler % (Auto) 8.8 % Eos % (Auto) 2.3 % Baso % (Auto) 0.8 % Immature Gran # (Auto) 0.00 (0.00-0.02) K/uL Neut # (Auto) 0.52 L* (1.4-6.5) K/uL Lymph # (Auto) 1.77 (1.2-3.4) K/uL Butler # (Auto) 0.23 (0.11-0.59) K/uL Eos # (Auto) 0.06 (0-0.5) K/uL Baso # (Auto) 0.02 (0-0.2) K/uL Absolute Nucleated RBC Nucleated RBC % (auto) Neutrophils % (Manual) Band Neutrophils % Lymphocytes % (Manual) Prolymphocyte % Reactive Lymphs % (Man) Monocytes % (Manual) Eosinophils % (Manual) Basophils % (Manual) Metamyelocytes % (Man) Myelocytes % (Man) Promyelocytes % (Man) Blast Cells % (Manual) Plasma Cell % (Manual) Other Cells % Nucleated RBC % Neutrophils # (Manual) Band Neutrophils # Total Absolute Neuts Lymphocytes # (Manual) Prolymphocyte # Reactive Lymphs # Total Abs Lymphocytes Monocytes # (Manual) Eosinophils # (Manual) Basophils # (Manual) Metamyelocytes # (Man) Myelocytes # (Manual) Promyelocytes # (Man) Blast Cells # (Man) Plasma Cell # (Manual) Other Cells # Nucleated RBCs # (Man) Hypersegmented Neuts Hyposegmented Neuts Hypogranular Neuts Large Granular Lymphs # Lrg Granular Lymphs Hairy Cells Smudge Cells Toxic Granulation Toxic Vacuolation Dohle Bodies Bin Rods Platelet Estimate Hypogranular Platelets Clumped Platelets Giant Platelets Platelet Satelliting RBC Morphology Polychromasia Hypochromasia Poikilocytosis Basophilic Stippling Anisocytosis Microcytosis Macrocytosis Spherocytes Pappenheimer Bodies Sickle Cells Target Cells Tear Drop Cells Ovalocytes Stomatocytes Callahan-Turton Bodies Echinocytes Acanthocytes (Spur) Rouleaux RBC Agglutinates Schistocytes RBC Morph Comment Sezary Cell PT (9.0-12.0) Seconds INR (0.9-1.1) APTT (21.0-31.0) Seconds PTT Ratio Sodium (136-145) mmol/L Potassium (3.5-5.1) mmol/L Chloride (98-107) mmol/L Carbon Dioxide (21-32) mmol/L Anion Gap (3-11) BUN (7-18) mg/dl Creatinine (0.6-1.2) mg/dl Est Cr Clr Drug Dosing ml/min Est GFR ( Amer) Est GFR (Non-Af Amer) BUN/Creatinine Ratio (10-20) Glucose (70-99) mg/dl Calcium (8.5-10.1) mg/dl Magnesium (1.8-2.4) mg/dl Total Bilirubin (0.2-1) mg/dl AST (15-37) U/L ALT (12-78) U/L Alkaline Phosphatase (45-117) U/L Ammonia (11-32) umol/L Troponin I (0-0.045) ng/ml Total Protein (6.4-8.2) gm/dl Albumin (3.4-5.0) gm/dl Globulin (2.5-4.0) gm/dl Albumin/Globulin Ratio (0.9-2) Lipase (73-393) U/L Folate (>5.38) ng/ml TSH (0.300-4.500) uIu/ml Urine Color Dark Yellow Urine Appearance Clear (Clear) Urine pH 7.5 (4.5-7.5) Ur Specific Smyer 1.017 (1.000-1.030) Urine Protein Negative (Negative) Urine Glucose (UA) Negative (Negative) Urine Ketones Negative (Negative) Urine Blood Negative (Negative) Urine Nitrite Negative (Negative) Urine Bilirubin Negative (Negative) Urine Urobilinogen Positive H (Negative) Ur Leukocyte Esterase Negative (Negative) Urine Opiates Screen Neg (Neg) Ur Methadone, Qual Neg (Neg) Urine Barbiturates Neg (Neg) Ur Phencyclidine (PCP) Neg (Neg) U Amphetamin/Meth Scrn Neg (Neg) MDMA (Ecstasy) Screen Neg (Neg) U Benzodiazepines Scrn Pos H (Neg) Ur Cocaine Metabolite Neg (Neg) U Marijuana (THC) Screen Neg (Neg) Ethyl Alcohol mg/dL (0-3) mg/dl 05/23/18 05/23/18 05/23/18 Range/Units 21:11 21:11 21:11 WBC (4.8-10.8) K/uL RBC (4.2-5.4) M/uL Hgb (12.0-16.0) g/dL Hct (37-47) % MCV (80-100) fL MCH (25-34) pg MCHC (32-36) g/dL RDW Std Deviation (36.4-46.3) fL RDW Coeff of Michelle (11.5-14.5) % Plt Count (130-400) K/uL MPV (7.4-10.4) fL Immature Gran % (Auto) % Neut % (Auto) % Lymph % (Auto) % Butler % (Auto) % Eos % (Auto) % Baso % (Auto) % Immature Gran # (Auto) (0.00-0.02) K/uL Neut # (Auto) (1.4-6.5) K/uL Lymph # (Auto) (1.2-3.4) K/uL Butler # (Auto) (0.11-0.59) K/uL Eos # (Auto) (0-0.5) K/uL Baso # (Auto) (0-0.2) K/uL Absolute Nucleated RBC Nucleated RBC % (auto) Neutrophils % (Manual) Band Neutrophils % Lymphocytes % (Manual) Prolymphocyte % Reactive Lymphs % (Man) Monocytes % (Manual) Eosinophils % (Manual) Basophils % (Manual) Metamyelocytes % (Man) Myelocytes % (Man) Promyelocytes % (Man) Blast Cells % (Manual) Plasma Cell % (Manual) Other Cells % Nucleated RBC % Neutrophils # (Manual) Band Neutrophils # Total Absolute Neuts Lymphocytes # (Manual) Prolymphocyte # Reactive Lymphs # Total Abs Lymphocytes Monocytes # (Manual) Eosinophils # (Manual) Basophils # (Manual) Metamyelocytes # (Man) Myelocytes # (Manual) Promyelocytes # (Man) Blast Cells # (Man) Plasma Cell # (Manual) Other Cells # Nucleated RBCs # (Man) Hypersegmented Neuts Hyposegmented Neuts Hypogranular Neuts Large Granular Lymphs # Lrg Granular Lymphs Hairy Cells Smudge Cells Toxic Granulation Toxic Vacuolation Dohle Bodies Bin Rods Platelet Estimate Hypogranular Platelets Clumped Platelets Giant Platelets Platelet Satelliting RBC Morphology Polychromasia Hypochromasia Poikilocytosis Basophilic Stippling Anisocytosis Microcytosis Macrocytosis Spherocytes Pappenheimer Bodies Sickle Cells Target Cells Tear Drop Cells Ovalocytes Stomatocytes Callahan-Turton Bodies Echinocytes Acanthocytes (Spur) Rouleaux RBC Agglutinates Schistocytes RBC Morph Comment Sezary Cell PT (9.0-12.0) Seconds INR (0.9-1.1) APTT (21.0-31.0) Seconds PTT Ratio Sodium 142 (136-145) mmol/L Potassium 3.6 (3.5-5.1) mmol/L Chloride 106 (98-107) mmol/L Carbon Dioxide 29 (21-32) mmol/L Anion Gap 7.0 (3-11) BUN 4 L (7-18) mg/dl Creatinine 0.66 (0.6-1.2) mg/dl Est Cr Clr Drug Dosing 110.7 ml/min Est GFR ( Amer) 120.2 Est GFR (Non-Af Amer) 103.7 BUN/Creatinine Ratio 6.2 L (10-20) Glucose 101 H (70-99) mg/dl Calcium 7.1 L (8.5-10.1) mg/dl Magnesium 1.8 (1.8-2.4) mg/dl Total Bilirubin 1.2 H (0.2-1) mg/dl AST 139 H (15-37) U/L ALT 47 (12-78) U/L Alkaline Phosphatase 181 H (45-117) U/L Ammonia (11-32) umol/L Troponin I < 0.015 (0-0.045) ng/ml Total Protein 8.1 (6.4-8.2) gm/dl Albumin 2.2 L (3.4-5.0) gm/dl Globulin 5.9 H (2.5-4.0) gm/dl Albumin/Globulin Ratio 0.4 L (0.9-2) Lipase 287 (73-393) U/L Folate (>5.38) ng/ml TSH 1.850 (0.300-4.500) uIu/ml Urine Color Urine Appearance (Clear) Urine pH (4.5-7.5) Ur Specific Smyer (1.000-1.030) Urine Protein (Negative) Urine Glucose (UA) (Negative) Urine Ketones (Negative) Urine Blood (Negative) Urine Nitrite (Negative) Urine Bilirubin (Negative) Urine Urobilinogen (Negative) Ur Leukocyte Esterase (Negative) Urine Opiates Screen (Neg) Ur Methadone, Qual (Neg) Urine Barbiturates (Neg) Ur Phencyclidine (PCP) (Neg) U Amphetamin/Meth Scrn (Neg) MDMA (Ecstasy) Screen (Neg) U Benzodiazepines Scrn (Neg) Ur Cocaine Metabolite (Neg) U Marijuana (THC) Screen (Neg) Ethyl Alcohol mg/dL 348.2 H (0-3) mg/dl 05/23/18 05/23/18 05/24/18 Range/Units 21:11 23:09 02:16 WBC (4.8-10.8) K/uL RBC (4.2-5.4) M/uL Hgb (12.0-16.0) g/dL Hct (37-47) % MCV (80-100) fL MCH (25-34) pg MCHC (32-36) g/dL RDW Std Deviation (36.4-46.3) fL RDW Coeff of Michelle (11.5-14.5) % Plt Count (130-400) K/uL MPV (7.4-10.4) fL Immature Gran % (Auto) % Neut % (Auto) % Lymph % (Auto) % Butler % (Auto) % Eos % (Auto) % Baso % (Auto) % Immature Gran # (Auto) (0.00-0.02) K/uL Neut # (Auto) (1.4-6.5) K/uL Lymph # (Auto) (1.2-3.4) K/uL Butler # (Auto) (0.11-0.59) K/uL Eos # (Auto) (0-0.5) K/uL Baso # (Auto) (0-0.2) K/uL Absolute Nucleated RBC Nucleated RBC % (auto) Neutrophils % (Manual) Band Neutrophils % Lymphocytes % (Manual) Prolymphocyte % Reactive Lymphs % (Man) Monocytes % (Manual) Eosinophils % (Manual) Basophils % (Manual) Metamyelocytes % (Man) Myelocytes % (Man) Promyelocytes % (Man) Blast Cells % (Manual) Plasma Cell % (Manual) Other Cells % Nucleated RBC % Neutrophils # (Manual) Band Neutrophils # Total Absolute Neuts Lymphocytes # (Manual) Prolymphocyte # Reactive Lymphs # Total Abs Lymphocytes Monocytes # (Manual) Eosinophils # (Manual) Basophils # (Manual) Metamyelocytes # (Man) Myelocytes # (Manual) Promyelocytes # (Man) Blast Cells # (Man) Plasma Cell # (Manual) Other Cells # Nucleated RBCs # (Man) Hypersegmented Neuts Hyposegmented Neuts Hypogranular Neuts Large Granular Lymphs # Lrg Granular Lymphs Hairy Cells Smudge Cells Toxic Granulation Toxic Vacuolation Dohle Bodies Bin Rods Platelet Estimate Hypogranular Platelets Clumped Platelets Giant Platelets Platelet Satelliting RBC Morphology Polychromasia Hypochromasia Poikilocytosis Basophilic Stippling Anisocytosis Microcytosis Macrocytosis Spherocytes Pappenheimer Bodies Sickle Cells Target Cells Tear Drop Cells Ovalocytes Stomatocytes Callahan-Turton Bodies Echinocytes Acanthocytes (Spur) Rouleaux RBC Agglutinates Schistocytes RBC Morph Comment Sezary Cell PT 16.9 H (9.0-12.0) Seconds INR 1.7 H (0.9-1.1) APTT 34.1 H (21.0-31.0) Seconds PTT Ratio 1.3 Sodium (136-145) mmol/L Potassium (3.5-5.1) mmol/L Chloride (98-107) mmol/L Carbon Dioxide (21-32) mmol/L Anion Gap (3-11) BUN (7-18) mg/dl Creatinine (0.6-1.2) mg/dl Est Cr Clr Drug Dosing ml/min Est GFR ( Amer) Est GFR (Non-Af Amer) BUN/Creatinine Ratio (10-20) Glucose (70-99) mg/dl Calcium (8.5-10.1) mg/dl Magnesium (1.8-2.4) mg/dl Total Bilirubin (0.2-1) mg/dl AST (15-37) U/L ALT (12-78) U/L Alkaline Phosphatase (45-117) U/L Ammonia 25.1 (11-32) umol/L Troponin I (0-0.045) ng/ml Total Protein (6.4-8.2) gm/dl Albumin (3.4-5.0) gm/dl Globulin (2.5-4.0) gm/dl Albumin/Globulin Ratio (0.9-2) Lipase (73-393) U/L Folate > 24.00 (>5.38) ng/ml TSH (0.300-4.500) uIu/ml Urine Color Urine Appearance (Clear) Urine pH (4.5-7.5) Ur Specific Smyer (1.000-1.030) Urine Protein (Negative) Urine Glucose (UA) (Negative) Urine Ketones (Negative) Urine Blood (Negative) Urine Nitrite (Negative) Urine Bilirubin (Negative) Urine Urobilinogen (Negative) Ur Leukocyte Esterase (Negative) Urine Opiates Screen (Neg) Ur Methadone, Qual (Neg) Urine Barbiturates (Neg) Ur Phencyclidine (PCP) (Neg) U Amphetamin/Meth Scrn (Neg) MDMA (Ecstasy) Screen (Neg) U Benzodiazepines Scrn (Neg) Ur Cocaine Metabolite (Neg) U Marijuana (THC) Screen (Neg) Ethyl Alcohol mg/dL (0-3) mg/dl 05/24/18 05/24/18 05/24/18 Range/Units 02:16 02:16 02:16 WBC Cancelled (4.8-10.8) K/uL RBC Cancelled (4.2-5.4) M/uL Hgb Cancelled (12.0-16.0) g/dL Hct Cancelled (37-47) % MCV Cancelled (80-100) fL MCH Cancelled (25-34) pg MCHC Cancelled (32-36) g/dL RDW Std Deviation Cancelled (36.4-46.3) fL RDW Coeff of Michelle Cancelled (11.5-14.5) % Plt Count Cancelled (130-400) K/uL MPV Cancelled (7.4-10.4) fL Immature Gran % (Auto) Cancelled % Neut % (Auto) Cancelled % Lymph % (Auto) Cancelled % Butler % (Auto) Cancelled % Eos % (Auto) Cancelled % Baso % (Auto) Cancelled % Immature Gran # (Auto) Cancelled (0.00-0.02) K/uL Neut # (Auto) Cancelled (1.4-6.5) K/uL Lymph # (Auto) Cancelled (1.2-3.4) K/uL Butler # (Auto) Cancelled (0.11-0.59) K/uL Eos # (Auto) Cancelled (0-0.5) K/uL Baso # (Auto) Cancelled (0-0.2) K/uL Absolute Nucleated RBC Cancelled Nucleated RBC % (auto) Cancelled Neutrophils % (Manual) Cancelled Band Neutrophils % Cancelled Lymphocytes % (Manual) Cancelled Prolymphocyte % Cancelled Reactive Lymphs % (Man) Cancelled Monocytes % (Manual) Cancelled Eosinophils % (Manual) Cancelled Basophils % (Manual) Cancelled Metamyelocytes % (Man) Cancelled Myelocytes % (Man) Cancelled Promyelocytes % (Man) Cancelled Blast Cells % (Manual) Cancelled Plasma Cell % (Manual) Cancelled Other Cells % Cancelled Nucleated RBC % Cancelled Neutrophils # (Manual) Cancelled Band Neutrophils # Cancelled Total Absolute Neuts Cancelled Lymphocytes # (Manual) Cancelled Prolymphocyte # Cancelled Reactive Lymphs # Cancelled Total Abs Lymphocytes Cancelled Monocytes # (Manual) Cancelled Eosinophils # (Manual) Cancelled Basophils # (Manual) Cancelled Metamyelocytes # (Man) Cancelled Myelocytes # (Manual) Cancelled Promyelocytes # (Man) Cancelled Blast Cells # (Man) Cancelled Plasma Cell # (Manual) Cancelled Other Cells # Cancelled Nucleated RBCs # (Man) Cancelled Hypersegmented Neuts Cancelled Hyposegmented Neuts Cancelled Hypogranular Neuts Cancelled Large Granular Lymphs Cancelled # Lrg Granular Lymphs Cancelled Hairy Cells Cancelled Smudge Cells Cancelled Toxic Granulation Cancelled Toxic Vacuolation Cancelled Dohle Bodies Cancelled Bin Rods Cancelled Platelet Estimate Cancelled Hypogranular Platelets Cancelled Clumped Platelets Cancelled Giant Platelets Cancelled Platelet Satelliting Cancelled RBC Morphology Cancelled Polychromasia Cancelled Hypochromasia Cancelled Poikilocytosis Cancelled Basophilic Stippling Cancelled Anisocytosis Cancelled Microcytosis Cancelled Macrocytosis Cancelled Spherocytes Cancelled Pappenheimer Bodies Cancelled Sickle Cells Cancelled Target Cells Cancelled Tear Drop Cells Cancelled Ovalocytes Cancelled Stomatocytes Cancelled Callahan-Turton Bodies Cancelled Echinocytes Cancelled Acanthocytes (Spur) Cancelled Rouleaux Cancelled RBC Agglutinates Cancelled Schistocytes Cancelled RBC Morph Comment Cancelled Sezary Cell Cancelled PT 16.9 H (9.0-12.0) Seconds INR 1.7 H (0.9-1.1) APTT 30.2 (21.0-31.0) Seconds PTT Ratio 1.2 Sodium 141 (136-145) mmol/L Potassium 3.8 (3.5-5.1) mmol/L Chloride 112 H (98-107) mmol/L Carbon Dioxide 30 (21-32) mmol/L Anion Gap -1.0 L (3-11) BUN 4 L (7-18) mg/dl Creatinine 0.55 L (0.6-1.2) mg/dl Est Cr Clr Drug Dosing 132.8 ml/min Est GFR ( Amer) 127.7 Est GFR (Non-Af Amer) 110.1 BUN/Creatinine Ratio 6.6 L (10-20) Glucose 81 (70-99) mg/dl Calcium 7.0 L (8.5-10.1) mg/dl Magnesium (1.8-2.4) mg/dl Total Bilirubin 1.3 H (0.2-1) mg/dl AST 134 H (15-37) U/L ALT 45 (12-78) U/L Alkaline Phosphatase 179 H (45-117) U/L Ammonia (11-32) umol/L Troponin I (0-0.045) ng/ml Total Protein 7.6 (6.4-8.2) gm/dl Albumin 2.1 L (3.4-5.0) gm/dl Globulin 5.5 H (2.5-4.0) gm/dl Albumin/Globulin Ratio 0.4 L (0.9-2) Lipase (73-393) U/L Folate (>5.38) ng/ml TSH (0.300-4.500) uIu/ml Urine Color Urine Appearance (Clear) Urine pH (4.5-7.5) Ur Specific Smyer (1.000-1.030) Urine Protein (Negative) Urine Glucose (UA) (Negative) Urine Ketones (Negative) Urine Blood (Negative) Urine Nitrite (Negative) Urine Bilirubin (Negative) Urine Urobilinogen (Negative) Ur Leukocyte Esterase (Negative) Urine Opiates Screen (Neg) Ur Methadone, Qual (Neg) Urine Barbiturates (Neg) Ur Phencyclidine (PCP) (Neg) U Amphetamin/Meth Scrn (Neg) MDMA (Ecstasy) Screen (Neg) U Benzodiazepines Scrn (Neg) Ur Cocaine Metabolite (Neg) U Marijuana (THC) Screen (Neg) Ethyl Alcohol mg/dL (0-3) mg/dl 05/24/18 Range/Units 07:41 WBC 2.69 L (4.8-10.8) K/uL RBC 2.85 L (4.2-5.4) M/uL Hgb 9.1 L (12.0-16.0) g/dL Hct 28.2 L (37-47) % MCV 98.9 (80-100) fL MCH 31.9 (25-34) pg MCHC 32.3 (32-36) g/dL RDW Std Deviation 61.8 H (36.4-46.3) fL RDW Coeff of Michelle 17.2 H (11.5-14.5) % Plt Count 43 L (130-400) K/uL MPV 10.9 H (7.4-10.4) fL Immature Gran % (Auto) 0.4 % Neut % (Auto) 14.1 % Lymph % (Auto) 75.8 % Butler % (Auto) 6.3 % Eos % (Auto) 3.0 % Baso % (Auto) 0.4 % Immature Gran # (Auto) 0.01 (0.00-0.02) K/uL Neut # (Auto) 0.38 L* (1.4-6.5) K/uL Lymph # (Auto) 2.04 (1.2-3.4) K/uL Butler # (Auto) 0.17 (0.11-0.59) K/uL Eos # (Auto) 0.08 (0-0.5) K/uL Baso # (Auto) 0.01 (0-0.2) K/uL Absolute Nucleated RBC Nucleated RBC % (auto) Neutrophils % (Manual) Band Neutrophils % Lymphocytes % (Manual) Prolymphocyte % Reactive Lymphs % (Man) Monocytes % (Manual) Eosinophils % (Manual) Basophils % (Manual) Metamyelocytes % (Man) Myelocytes % (Man) Promyelocytes % (Man) Blast Cells % (Manual) Plasma Cell % (Manual) Other Cells % Nucleated RBC % Neutrophils # (Manual) Band Neutrophils # Total Absolute Neuts Lymphocytes # (Manual) Prolymphocyte # Reactive Lymphs # Total Abs Lymphocytes Monocytes # (Manual) Eosinophils # (Manual) Basophils # (Manual) Metamyelocytes # (Man) Myelocytes # (Manual) Promyelocytes # (Man) Blast Cells # (Man) Plasma Cell # (Manual) Other Cells # Nucleated RBCs # (Man) Hypersegmented Neuts Hyposegmented Neuts Hypogranular Neuts Large Granular Lymphs # Lrg Granular Lymphs Hairy Cells Smudge Cells Toxic Granulation Toxic Vacuolation Dohle Bodies Bin Rods Platelet Estimate Hypogranular Platelets Clumped Platelets Giant Platelets Platelet Satelliting RBC Morphology Polychromasia Hypochromasia Poikilocytosis Basophilic Stippling Anisocytosis Microcytosis Macrocytosis Spherocytes Pappenheimer Bodies Sickle Cells Target Cells 2+ Tear Drop Cells Ovalocytes Stomatocytes Callahan-Turton Bodies Echinocytes Acanthocytes (Spur) Rouleaux RBC Agglutinates Schistocytes RBC Morph Comment Sezary Cell PT (9.0-12.0) Seconds INR (0.9-1.1) APTT (21.0-31.0) Seconds PTT Ratio Sodium (136-145) mmol/L Potassium (3.5-5.1) mmol/L Chloride (98-107) mmol/L Carbon Dioxide (21-32) mmol/L Anion Gap (3-11) BUN (7-18) mg/dl Creatinine (0.6-1.2) mg/dl Est Cr Clr Drug Dosing ml/min Est GFR ( Amer) Est GFR (Non-Af Amer) BUN/Creatinine Ratio (10-20) Glucose (70-99) mg/dl Calcium (8.5-10.1) mg/dl Magnesium (1.8-2.4) mg/dl Total Bilirubin (0.2-1) mg/dl AST (15-37) U/L ALT (12-78) U/L Alkaline Phosphatase (45-117) U/L Ammonia (11-32) umol/L Troponin I (0-0.045) ng/ml Total Protein (6.4-8.2) gm/dl Albumin (3.4-5.0) gm/dl Globulin (2.5-4.0) gm/dl Albumin/Globulin Ratio (0.9-2) Lipase (73-393) U/L Folate (>5.38) ng/ml TSH (0.300-4.500) uIu/ml Urine Color Urine Appearance (Clear) Urine pH (4.5-7.5) Ur Specific [place] (1.000-1.030) Urine Protein (Negative) Urine Glucose (UA) (Negative) Urine Ketones (Negative) Urine Blood (Negative) Urine Nitrite (Negative) Urine Bilirubin (Negative) Urine Urobilinogen (Negative) Ur Leukocyte Esterase (Negative) Urine Opiates Screen (Neg) Ur Methadone, Qual (Neg) Urine Barbiturates (Neg) Ur Phencyclidine (PCP) (Neg) U Amphetamin/Meth Scrn (Neg) MDMA (Ecstasy) Screen (Neg) U Benzodiazepines Scrn (Neg) Ur Cocaine Metabolite (Neg) U Marijuana (THC) Screen (Neg) Ethyl Alcohol mg/dL (0-3) mg/dl Imaging Data Attestation: I personally reviewed and interpreted this imaging study as follows : My Impression: XR Chest 1V portable Stat shows no CHF or pneumonia, no free air ECG Data Attestation: I personally reviewed and interpreted this ECG as follows: Indication: altered mental status Rate (beats per minute): 85 Rhythm: normal sinus (artifact noted) Findings: no PVC and no ST elevation (no obvious ST elevation) Blood Pressure Blood Pressure Findings: Normal blood pressure Blood Pressure Disposition: did not require urgent referral MDM Narrative There is a low white count, hemoglobin and platelet count. These are baseline findings for the patient. Today, the patient is neutropenic, this has been documented in the recent past as well. There is a coagulopathy present, likely consistent with her liver disease. Renal panel testing does not show renal failure. Calcium somewhat low. There was evidence for liver enzyme elevation, consistent with her liver disease. Ammonia level was not elevated. No evidence for pancreatitis. The patient appeared to be in a euthyroid state. EKG shows a sinus rhythm with artifact, no acute ischemia. Cardiac enzyme testing x1 is not consistent with acute cardiac injury. Chest x-ray does not show pneumonia, mediastinal widening or free air. Urinalysis does not show evidence for infection. Urine tox was positive for benzos. Alcohol level was quite elevated at 348. The patient received a dose of IV Zantac. She was given IV Zofran and IV Ativan. She received saline with multivitamins, thiamine and folate. The patient presents with vomiting. Despite her higher alcohol level, I do think she is actually starting to have some alcohol withdrawal. Today, she is neutropenic. There is significant pedal edema present. I do think hospitalization would be warranted for symptom control. I think she will do poorly if discharged. I spoke to the patient and case management. The on-call hospitalist was consulted. Impression & Plan Alcohol withdrawal, Neutropenia, Alcohol abuse, Vomiting Discharge Plan Visit Data *Final* Discharge Date/Time: 05/24/18 01:44 Chief Complaint: Illness Stated Complaint: EDEMA TO LEGS, VOMITING ED Provider: Jacoby Love Discharge Problem: Alcohol withdrawal, Neutropenia, Alcohol abuse, Vomiting Patient Disposition: Admitted As Inpatient Discharge Instructions Interventions: ED Discharge Assessment Last Done: 05/24/18 01:44 The scribe's documentation has been prepared under my direction and personally reviewed by me in its entirety. I confirm that the note above accurately reflects all work, treatment, procedures, and medical decision making performed by me.
--- NOTE | 2018-05-24 01:35 | History & Physical Report ---
Date of Service May 24, 2018 Assessment & Plan (1) Alcohol withdrawal: Chronic alcoholism/alcohol abuse/concern regarding alcohol withdrawal per ED-- Admit to medical telemetry. N.p.o. Banana bag at 200 mils per hour every morning times 1 L. NSS plus KCl 20 mEq at 100 mils per hour after banana bag completed. Zofran 4 mg IV every 6 hours as needed. Pantoprazole 40 mg IV daily. AWSS protocol with IV Ativan. hotel services sales representative consult. Present on Admission?: Yes (2) Alcohol abuse: As above. Present on Admission?: Yes (3) Neutropenia: Pancytopenia/neutropenia/anemia/thrombocytopenia-- Combination of nutritional and liver failure. Laboratories overall stable compared to last few months. Present on Admission?: Yes (4) Nausea and vomiting: Associated with alcohol withdrawal. Zofran and Protonix as noted above. Present on Admission?: Yes (5) Liver failure: Patient with significant liver failure signs. INR is 1.7. Secondary to alcohol abuse. I discussed with this patient at previous admissions that she will at some point likely begin to bleed to , however, this has not affected her alcohol use dependency. Present on Admission?: Yes (6) Thrombocytopenia: As above. Present on Admission?: Yes (7) Coagulopathy: As above. Present on Admission?: Yes History of Present Illness Chief Complaint: She presents to the emergency department with recurrent nausea and vomiting similar to previous presentations in the past Primary Care Provider: NO PCP The patient is a 47-year-old female with severe alcohol dependency and alcoholism, who presents to the emergency department with the same set of symptoms as with previous admissions, that of intractable nausea and vomiting and epigastric discomfort. Her laboratories are the same as far as increased AST, increased INR and of the laboratories are reflective of her cirrhosis and chronic liver failure. The main difference this time, is that her alcohol level is elevated at 348. Allergies Allergy/AdvReac Type Severity Reaction Status Date / Time acetaminophen [From Tylenol] AdvReac Intermediate HX Verified 05/24/18 00:25 CIRRHOSIS NSAIDS (Non-Steroidal AdvReac Intermediate HX Verified 05/24/18 00:25 Anti-Inflamma CIRRHOSIS phenytoin AdvReac Intermediate LOSS OF Verified 05/24/18 00:25 EQUILIBRIUM Home Medications Home Medications Medication Instructions Recorded Confirmed Type digestive enzymes 5 cap PO DAILY 05/24/18 05/24/18 History folic acid 1 mg PO DAILY 05/24/18 05/24/18 History gabapentin 400 mg PO QID 05/24/18 05/24/18 History magnesium oxide 400 mg PO BID 05/24/18 05/24/18 History Past Med/Surg History Medical History Liver failure Schizoaffective disorder (Chronic) Arthritis Depression Hypertension Liver disease Thyroid disease Gastritis Liver cancer (Chronic) Alcoholism Acute recurrent pancreatitis (Acute Unknown) 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 hepatitis C (Chronic Unknown) Chronic pancreatitis (Chronic Unknown) Cirrhosis, alcoholic (Chronic) Chronic renal failure, stage 3 (moderate) (Chronic) Polysubstance abuse (Acute) Depression with suicidal ideation (Acute) TIA (transient ischemic attack) (Acute) Hypotension (Acute) Neutropenia (Acute) Pancytopenia (Acute) Anemia (Acute) Hypocalcemia (Acute) Hypernatremia (Acute) Alcohol withdrawal Pancreatitis (Chronic) Alcohol withdrawal Cholecystectomy planned Cholecystectomy planned Hypokalemia Hyponatremia Seizures Surgical History History of appendectomy Cholecystectomy planned Social History marital status: Current Living Situation: Alone current occupational status: unemployed and disabled Feels Safe at Home: No Is there a partner from a previous relationship who is making you feel unsafe now?: No Smoking Status: Current every day smoker Tobacco Type: cigarettes Cigarettes per Day: 7 cigarettes per day Second Hand Exposure: No Hx Alcohol Use: Yes Alcohol type: beer Alcohol Intake Frequency: 3 or more drinks per day Hx Substance Use: No Beliefs That Will Affect Care: None Preferred Language: Kinyarwanda Review of Systems The patient denies chest pain, palpitations, sore throat, fevers, chills, sweats , diarrhea, blood in urine or stool, dysuria, urinary frequency or urgency, rash , abnormal bruising or bleeding, focal weakness, numbness or tingling in arms or legs, generalized arthralgias or myalgias, back or neck pain, or night sweats. The review of systems is otherwise negative other than for that already noted above, and at least 10 systems have been reviewed. Physical Exam 2 Vital Signs (Past 24 Hours): Last Vital Signs Temp 36.8 C 05/23/18 20:27 Pulse 98 H 05/23/18 23:00 Resp 20 05/23/18 23:00 BP 117/72 05/23/18 23:00 Pulse Ox 94 05/23/18 23:00 Physical Exam: The patient is sedated and unresponsive, normocephalic and atraumatic, lying in bed and in no acute distress. HEENT--PERRL, EOMI, mucous membranes and oropharynx dry. Neck--supple. No JVD. No bruits. Thyroid normal, trachea midline, no adenopathy. Heart--normal S1 and S2. No murmurs, rubs or gallops. Lungs--clear bilaterally, no respiratory distress, no accessory muscle use. Abdomen--normal bowel sounds and soft. Nontender. Nondistended. Extremities--no cyanosis or clubbing. No edema. There are good distal pulses b/ l. Dermatologic--normal skin turgor, normal color, no abnormal lymph nodes, no rash. Neurologic--cranial nerves II through XII grossly intact. Rheumatologic--limited exam Psychiatric--sedated nonresponsive Results & Data Laboratory Results Laboratory Results WBC 2.60 K/uL (4.8-10.8) L 05/23/18 21:11 RBC 2.95 M/uL (4.2-5.4) L 05/23/18 21:11 Hgb 9.6 g/dL (12.0-16.0) L 05/23/18 21:11 Hct 29.2 % (37-47) L 05/23/18 21:11 MCV 99.0 fL (80-100) 05/23/18 21:11 MCH 32.5 pg (25-34) 05/23/18 21:11 MCHC 32.9 g/dL (32-36) 05/23/18 21:11 RDW Std Deviation 62.2 fL (36.4-46.3) H 05/23/18 21:11 RDW Coeff of Michelle 17.4 % (11.5-14.5) H 05/23/18 21:11 Plt Count 55 K/uL (130-400) L 05/23/18 21:11 MPV 10.7 fL (7.4-10.4) H 05/23/18 21:11 Immature Gran % (Auto) 0.0 % 05/23/18 21:11 Neut % (Auto) 20.0 % 05/23/18 21:11 Lymph % (Auto) 68.1 % 05/23/18 21:11 [place] % (Auto) 8.8 % 05/23/18 21:11 Eos % (Auto) 2.3 % 05/23/18 21:11 Baso % (Auto) 0.8 % 05/23/18 21:11 Immature Gran # (Auto) 0.00 K/uL (0.00-0.02) 05/23/18 21:11 Neut # (Auto) 0.52 K/uL (1.4-6.5) L* 05/23/18 21:11 Lymph # (Auto) 1.77 K/uL (1.2-3.4) 05/23/18 21:11 [place] # (Auto) 0.23 K/uL (0.11-0.59) 05/23/18 21:11 Eos # (Auto) 0.06 K/uL (0-0.5) 05/23/18 21:11 Baso # (Auto) 0.02 K/uL (0-0.2) 05/23/18 21:11 PT 16.9 Seconds (9.0-12.0) H 05/23/18 21:11 INR 1.7 (0.9-1.1) H 05/23/18 21:11 APTT 34.1 Seconds (21.0-31.0) H 05/23/18 21:11 PTT Ratio 1.3 05/23/18 21:11 Sodium 142 mmol/L (136-145) 05/23/18 21:11 Potassium 3.6 mmol/L (3.5-5.1) 05/23/18 21:11 Chloride 106 mmol/L (98-107) 05/23/18 21:11 Carbon Dioxide 29 mmol/L (21-32) 05/23/18 21:11 Anion Gap 7.0 (3-11) 05/23/18 21:11 BUN 4 mg/dl (7-18) L 05/23/18 21:11 Creatinine 0.66 mg/dl (0.6-1.2) 05/23/18 21:11 Est Cr Clr Drug Dosing 110.7 ml/min 05/23/18 21:11 Est GFR ( Amer) 120.2 05/23/18 21:11 Est GFR (Non-Af Amer) 103.7 05/23/18 21:11 BUN/Creatinine Ratio 6.2 (10-20) L 05/23/18 21:11 Glucose 101 mg/dl (70-99) H 05/23/18 21:11 Calcium 7.1 mg/dl (8.5-10.1) L 05/23/18 21:11 Magnesium 1.8 mg/dl (1.8-2.4) 05/23/18 21:11 Total Bilirubin 1.2 mg/dl (0.2-1) H 05/23/18 21:11 AST 139 U/L (15-37) H 05/23/18 21:11 ALT 47 U/L (12-78) 05/23/18 21:11 Alkaline Phosphatase 181 U/L (45-117) H 05/23/18 21:11 Ammonia 25.1 umol/L (11-32) 05/23/18 23:09 Troponin I < 0.015 ng/ml (0-0.045) 05/23/18 21:11 Total Protein 8.1 gm/dl (6.4-8.2) 05/23/18 21:11 Albumin 2.2 gm/dl (3.4-5.0) L 05/23/18 21:11 Globulin 5.9 gm/dl (2.5-4.0) H 05/23/18 21:11 Albumin/Globulin Ratio 0.4 (0.9-2) L 05/23/18 21:11 Lipase 287 U/L (73-393) 05/23/18 21:11 TSH 1.850 uIu/ml (0.300-4.500) 05/23/18 21:11 Urine Color Dark Yellow 05/23/18 20:40 Urine Appearance Clear (Clear) 05/23/18 20:40 Urine pH 7.5 (4.5-7.5) 05/23/18 20:40 Ur Specific [place] 1.017 (1.000-1.030) 05/23/18 20:40 Urine Protein Negative (Negative) 05/23/18 20:40 Urine Glucose (UA) Negative (Negative) 05/23/18 20:40 Urine Ketones Negative (Negative) 05/23/18 20:40 Urine Blood Negative (Negative) 05/23/18 20:40 Urine Nitrite Negative (Negative) 05/23/18 20:40 Urine Bilirubin Negative (Negative) 05/23/18 20:40 Urine Urobilinogen Positive (Negative) H 05/23/18 20:40 Ur Leukocyte Esterase Negative (Negative) 05/23/18 20:40 Urine Opiates Screen Neg (Neg) 05/23/18 20:40 Ur Methadone, Qual Neg (Neg) 05/23/18 20:40 Urine Barbiturates Neg (Neg) 05/23/18 20:40 Ur Phencyclidine (PCP) Neg (Neg) 05/23/18 20:40 U Amphetamin/Meth Scrn Neg (Neg) 05/23/18 20:40 MDMA (Ecstasy) Screen Neg (Neg) 05/23/18 20:40 U Benzodiazepines Scrn Pos (Neg) H 05/23/18 20:40 Ur Cocaine Metabolite Neg (Neg) 05/23/18 20:40 U Marijuana (THC) Screen Neg (Neg) 05/23/18 20:40 Ethyl Alcohol mg/dL 348.2 mg/dl (0-3) H 05/23/18 21:11 Code Status & VTE Plan Code Status Full code VTE Prophylaxis Plan VTE Prophylaxis will be ordered: Yes _ (1) Alcohol withdrawal Complication of substance-induced condition: with unspecified complication Qualified Code(s): F10.239 - Alcohol dependence with withdrawal, unspecified (2) Neutropenia Neutropenia type: unspecified Qualified Code(s): D70.9 - Neutropenia, unspecified (3) Nausea and vomiting Vomiting Intractability: non-intractable Vomiting type: unspecified Qualified Code(s): R11.2 - Nausea with vomiting, unspecified
[2018-05-24 03:05] LABS: Albumin Globulin Ratio 0.4 (0.9-2); Albumin Level 2.1 gm/dl (3.4-5.0); BUN Creatinine Ratio 6.6 (10-20); Bilirubin,Total 1.3 mg/dl (0.2-1); Creatinine Clr Calc Pharmacy 132.8 ml/min; Est GFR (African American) 127.7; Est GFR (Non-African American) 110.1; Globulin 5.5 gm/dl (2.5-4.0); INR 1.7 (0.9-1.1); Partial Thromboplastin Ratio 1.2; Partial Thromboplastin Time 30.2 Seconds (21.0-31.0); Potassium 3.8 mmol/L (3.5-5.1); Prothrombin Time 16.9 Seconds (9.0-12.0); Total Protein 7.6 gm/dl (6.4-8.2)
--- NOTE | 2018-05-24 06:22 | XRay Report ---
XR chest 1V portable HISTORY: 47 years-old Female vomiting chronic abdominal pain with vomiting COMPARISON: CT abdomen and pelvis 03/02/2018, chest radiograph 02/26/2018. TECHNIQUE: Portable AP view of the chest FINDINGS: Cardiomediastinal and hilar silhouettes are within normal limits. Linear subsegmental atelectasis/sca rring about the lateral right midlung. No pneumothorax, pleural effusion, focal airspace consolidatio n or overt pulmonary edema. Ununited remote fracture of the distal right clavicle. Degenerative perez es of the shoulders and spine. IMPRESSION: No acute process. The above report was generated using voice recognition software. It may contain grammatical, syntax o r spelling errors. Electronically signed by: Sam Etienne M.D. 05/24/2018 6:21 AM
[2018-05-24 08:07] LABS: Hematocrit (blood only) 28.2 % (37-47); Hemoglobin 9.1 g/dL (12.0-16.0); Mean Corpuscular Hgb Conc 32.3 g/dL (32-36); Mean Corpuscular Volume 98.9 fL (80-100); Mean Platelet Volume 10.9 fL (7.4-10.4); Platelet Count 43 K/uL (130-400); RDW Coefficient of Variation 17.2 % (11.5-14.5); RDW Standard Deviation 61.8 fL (36.4-46.3); Red Blood Count 2.85 M/uL (4.2-5.4); White Blood Count 2.69 K/uL (4.8-10.8)
[2018-05-24 08:27] LABS: Basophils # (auto) 0.01 K/uL (0-0.2); Basophils % (auto) 0.4 %; Eosinophils # (auto) 0.08 K/uL (0-0.5); Immature Granulocytes # (auto) 0.01 K/uL (0.00-0.02); Immature Granulocytes % (auto) 0.4 %; Lymphocytes # (auto) 2.04 K/uL (1.2-3.4); Lymphocytes % (auto) 75.8 %; Monocytes # (auto) 0.17 K/uL (0.11-0.59); Monocytes % (auto) 6.3 %; Neutrophils # (auto) 0.38 K/uL (1.4-6.5); Neutrophils % (auto) 14.1 %; Target Cells 2+
--- NOTE | 2018-05-24 13:36 | History & Physical Bridge Note ---
Date of Service May 24, 2018 History & Physical Bridge Note I have seen and examined the patient today. Still with some tremor. Reports some LUQ pain. Would like rehab.
[2018-05-25 06:55] LABS: Hematocrit (blood only) 30.5 % (37-47); Hemoglobin 9.9 g/dL (12.0-16.0); Mean Corpuscular Hgb Conc 32.5 g/dL (32-36); Mean Corpuscular Volume 99.3 fL (80-100); Mean Platelet Volume 10.9 fL (7.4-10.4); Platelet Count 35 K/uL (130-400); RDW Coefficient of Variation 16.4 % (11.5-14.5); RDW Standard Deviation 59.1 fL (36.4-46.3); Red Blood Count 3.07 M/uL (4.2-5.4)
[2018-05-25 07:14] LABS: INR 1.8 (0.9-1.1); Prothrombin Time 17.6 Seconds (9.0-12.0)
[2018-05-25 07:31] LABS: Albumin Level 1.9 gm/dl (3.4-5.0); BUN Creatinine Ratio 7.9 (10-20); Calcium 7.3 mg/dl (8.5-10.1); Creatinine Clr Calc Pharmacy 144.4 ml/min; Est GFR (African American) 126.2; Est GFR (Non-African American) 108.9; Potassium 3.9 mmol/L (3.5-5.1)
[2018-05-25 07:36] LABS: Albumin Globulin Ratio 0.4 (0.9-2); Bilirubin,Total 2.2 mg/dl (0.2-1); Globulin 5.1 gm/dl (2.5-4.0)
[2018-05-25 07:55] LABS: Basophils # (auto) 0.01 K/uL (0-0.2); Basophils % (auto) 0.5 %; Eosinophils # (auto) 0.03 K/uL (0-0.5); Eosinophils % (auto) 1.6 %; Giant Platelets 1+; Lymphocytes # (auto) 0.68 K/uL (1.2-3.4); Lymphocytes % (auto) 35.8 %; Monocytes # (auto) 0.19 K/uL (0.11-0.59); Neutrophils # (auto) 0.99 K/uL (1.4-6.5); Neutrophils % (auto) 52.1 %; Target Cells 1+
--- NOTE | 2018-05-25 09:07 | XRay Report ---
XR KUB CLINICAL HISTORY: 47 years-old Female presenting with Emesis. TECHNIQUE: Single supine view of the abdomen was obtained. COMPARISON: 07/08/[address] from 03/02/2018. FINDINGS: Nonobstructive bowel gas pattern. No gross pneumoperitoneum. Hyperdensities in the right lower quadrant indicative of postsurgical changes of appendectomy. No rad iographic evidence of renal or ureteral calculi allowing for the mild colonic stool burden. Osseous structures normal. IMPRESSION: 1. No acute intra-abdominal pathology. Electronically signed by: Cheng Tim M.D. 05/25/2018 9:05 AM
--- NOTE | 2018-05-25 09:08 | Ultrasound Report ---
US abdomen limited CLINICAL HISTORY: 47 years-old Female presenting with cirrhosis and hepatic steatosis, ascites check. TECHNIQUE: Real-time grayscale ultrasound imaging of the abdomen limited to evaluation for ascites wa s performed. COMPARISON: CT from 03/02/2018. FINDINGS: Ascites: None. Other: None. IMPRESSION: No ascites. Electronically signed by: Cheng Tim M.D. 05/25/2018 9:06 AM
--- NOTE | 2018-05-25 09:15 | Ultrasound Report ---
US duplex portal hepatic veins CLINICAL HISTORY: 47 years-old Female presenting with portal dopplers, RUQ for gallbladder. TECHNIQUE: Real-time grayscale and color and spectral Doppler ultrasound imaging of the liver was per formed. COMPARISON: CT from 03/02/2018. FINDINGS: The examination was significantly limited by patient movement due to vomiting and withdrawal symptoms . This limits diagnostic sensitivity the exam. Liver: Nodular contour with hyperechogenic parenchyma and heterogeneous echotexture, consistent with cirrhosis. Vasculature: Portal veins: Main portal vein with antegrade flow and gentle undulating waveforms. Peak velocity 10 cm/s, which is slightly diminished from normal (normal velocities 16-40 cm/s). Right and left portal veins with normal directional flow. Hepatic arteries: Not visualized Hepatic veins: Not visualized on color Doppler though the hepatic confluence is grossly patent with t riphasic waveforms on spectral Doppler. Splenic vein: Patent. IVC: Not visualized. Ascites: None. Other: None. IMPRESSION: The examination was significantly limited by patient movement due to vomiting and withdrawal symptoms . This limits diagnostic sensitivity the exam. Patent and antegrade portal venous flow. Diminished velocity in the main portal vein likely a consequ ence of developing portal hypertension. Electronically signed by: Cheng Tim M.D. 05/25/2018 9:13 AM
--- NOTE | 2018-05-25 11:09 | Consultation Report ---
DATE OF CONSULTATION: 05/25/2018 GASTROINTESTINAL CONSULTATION NOTE REASON FOR CONSULTATION: Alcohol withdrawal. HISTORY OF PRESENT ILLNESS: The patient is a 47-year-old hospitalized 2 months ago with similar symptoms. The patient uses alcohol chronically and presents again with alcohol withdrawal. She reports her last alcohol consumption was 2 days ago and she presents in withdrawal. Currently, she is awake and coherent, but very tremulous. She is receiving lorazepam and IV fluid and vitamin replacements. She also has underlying alcohol-related cirrhosis and hepatitis C which has never been treated. She has never been sober long enough to be considered for treatment. She also presents with some nausea and vomiting. PAST MEDICAL HISTORY: Remarkable for alcoholic cirrhosis and associated thrombocytopenia and coagulopathy. She did have an EGD during her last hospitalization, which was negative for esophageal varices and there is no ascites. Remarkable for hepatitis C and alcohol-related liver disease. She has had a cholecystectomy, appendectomy, history of pancreatitis, and seizures. HOME MEDICATIONS: Include digestive enzymes, folic acid, gabapentin, and magnesium oxide. ALLERGIES: TYLENOL, NONSTEROIDALS, AND PHENYTOIN. SOCIAL HISTORY: The patient is . She lives alone. She is unemployed. She smokes cigarettes, 7 per day. REVIEW OF SYSTEMS: Positive for back pain, anxiety, and tremulousness, remainder is negative. PHYSICAL EXAMINATION: GENERAL: The patient appears in alcohol withdrawal. VITAL SIGNS: Blood pressure 117/72, pulse 98. She is afebrile. Oxygen at 2 liters a minute, pulse ox 94. HEENT: There is no obvious scleral icterus. ABDOMEN: Shows multiple cutaneous scratch lombardo. There is a right upper quadrant scar. Liver is slightly enlarged, but nontender. Spleen is not palpable. EXTREMITIES: Show trace ankle edema. NEUROLOGIC: Showed her to be tremulous. IMPRESSION AND PLAN: The patient is in alcohol withdrawal, should resolve in the next 24 hours hopefully if she is truthful in the fact that she has not had any alcohol in 2 days. In the meantime, I would recommend continuing her on lorazepam to control her symptoms of withdrawal and continue fluid and electrolyte replacement. Recommend a higher protein diet than she is on now as her albumin is low. Also recommend social service intervention to see if she can get into a rehab facility upon discharge.
--- NOTE | 2018-05-25 13:16 | Hospitalist Progress Note ---
Date of Service May 25, 2018 Assessment & Plan (1) Alcohol withdrawal: - Banana bag at 200 mils per hour every morning times 1 L. - NSS plus KCl 20 mEq at 100 mils per hour after banana bag completed. - Zofran 4 mg IV every 6 hours as needed. - Pantoprazole 40 mg IV daily. - AWSS protocol with IV Ativan. - assessment services manager consult. - Would like to be discharged to inpatient alcohol rehab after hospitalization. CM/PT/OT all consulted. (2) Alcohol abuse: As above. (3) Neutropenia: Pancytopenia/neutropenia/anemia/thrombocytopenia-- - Has seen hemotology and counts have been stable for years. - Combination of nutritional and liver failure. - Laboratories overall stable compared to last few months. - Monitor counts while hospitalized (4) Nausea and vomiting: Associated with alcohol withdrawal. Possibly some other withdrawal as well as she has a history of other drug abuse, though tox screen on 05/23 was negative. - Zofran and Protonix as noted above. (5) Liver failure: Patient with significant liver failure signs. INR was 1.7 on admission, mostly stable. Secondary to alcohol abuse. (6) Thrombocytopenia: Platelets often <100k due to liver disease; often as low as 25k during acute illnesses. - No signs of bleeding - Hold blood thinners while platelets <50k. (7) Coagulopathy: As above. (8) Hepatitis C: Never treated as he has not been able to maintain follow ups. - If she gets sober, will need outpatient follow up for HCV treatment. (9) DVT prophylaxis: SCDs - Plts only 35 on 05/25 Subjective 47yo F w/ hx of alcohol abuse and cirrhosis who presents with alcohol withdrawal. Still having LUQ pain and some emesis. Reports no fevers/chills, chest pain, shortness of breath. Physical Exam 2 Vital Signs (Past 24 Hours): Last Vital Signs Temp 37.3 C 05/25/18 11:20 Pulse 89 05/25/18 11:20 Resp 20 05/25/18 11:20 BP 126/73 05/25/18 11:20 Pulse Ox 97 05/25/18 11:20 Constitutional: WD/WN, vitals as above Eyes: EOM intact bilaterally; no conjunctival abnormality ENMT: external ear and nose normal, oropharynx normal Neck: trachea midline, no thyromegaly normal visual inspection Respiratory: normal respiratory effort, lungs clear to auscultation no respiratory distress Cardiovascular: RRR, no murmur, no edema Gastrointestinal (Abdomen): Inspection/Auscultation: abdomen normal to inspection; abdomen not distended Musculoskeletal: no cyanosis or clubbing, extremities motor strength 5/5 Skin: no rashes, warm and dry Neurologic: moves all extremities and awake Tremor Psychiatric: Orientation: alert, oriented to person and cooperative _ (1) Alcohol withdrawal Complication of substance-induced condition: with unspecified complication Qualified Code(s): F10.239 - Alcohol dependence with withdrawal, unspecified (2) Neutropenia Neutropenia type: unspecified Qualified Code(s): D70.9 - Neutropenia, unspecified (3) Nausea and vomiting Vomiting Intractability: non-intractable Vomiting type: unspecified Qualified Code(s): R11.2 - Nausea with vomiting, unspecified
[2018-05-26 06:22] LABS: Hematocrit (blood only) 27.9 % (37-47); Hemoglobin 9.4 g/dL (12.0-16.0); Mean Corpuscular Hgb Conc 33.7 g/dL (32-36); Mean Corpuscular Volume 99.3 fL (80-100); Mean Platelet Volume 11.4 fL (7.4-10.4); Platelet Count 27 K/uL (130-400); RDW Standard Deviation 58.4 fL (36.4-46.3); Red Blood Count 2.81 M/uL (4.2-5.4); White Blood Count 1.71 K/uL (4.8-10.8)
[2018-05-26 06:27] LABS: INR 1.8 (0.9-1.1)
[2018-05-26 06:48] LABS: Albumin Level 1.8 gm/dl (3.4-5.0); BUN Creatinine Ratio 10.2 (10-20); Calcium 7.2 mg/dl (8.5-10.1); Creatinine Clr Calc Pharmacy 133.4 ml/min; Est GFR (African American) 126.2; Est GFR (Non-African American) 108.9; Magnesium 1.4 mg/dl (1.8-2.4); Potassium 3.6 mmol/L (3.5-5.1)
[2018-05-26 06:51] LABS: Albumin Globulin Ratio 0.3 (0.9-2); Bilirubin,Total 2.3 mg/dl (0.2-1); Globulin 5.4 gm/dl (2.5-4.0); Total Protein 7.2 gm/dl (6.4-8.2)
[2018-05-26 07:12] LABS: Basophils # (auto) 0.01 K/uL (0-0.2); Basophils % (auto) 0.6 %; Eosinophils # (auto) 0.05 K/uL (0-0.5); Eosinophils % (auto) 2.9 %; Giant Platelets 1+; Immature Granulocytes # (auto) 0.01 K/uL (0.00-0.02); Immature Granulocytes % (auto) 0.6 %; Lymphocytes # (auto) 0.85 K/uL (1.2-3.4); Lymphocytes % (auto) 49.7 %; Monocytes # (auto) 0.23 K/uL (0.11-0.59); Monocytes % (auto) 13.5 %; Neutrophils # (auto) 0.56 K/uL (1.4-6.5); Neutrophils % (auto) 32.7 %; Target Cells 1+
--- NOTE | 2018-05-26 12:23 | Progress Note ---
DATE: 05/26/2018 SUBJECTIVE: The patient continues to be tremulous from her alcohol withdrawal. This is day #3. She is not vomiting today and is actually hungry and is starting to eat, which is a good sign. She is agreeable to going to inpatient rehabilitation if there is a bed available and social workers are working on that. OBJECTIVE: VITAL SIGNS: Blood pressure is 124/73, pulse 112. She is afebrile. Respirations are 18. ABDOMEN: Nontender. NEUROLOGIC: Shows her to be tremulous at rest. She is awake and coherent, however. LABORATORY: Shows poor nutritional status with albumin of 1.8. IMPRESSION: The patient is starting to improve on her alcohol withdrawal. She is agreeable to proceeding to inpatient rehabilitation when she is able to be discharged. I recommended that she begin a nutritional supplement twice a day to help her improve her nutritional status.
--- NOTE | 2018-05-26 15:40 | Hospitalist Progress Note ---
Date of Service May 26, 2018 Assessment & Plan (1) Alcohol withdrawal: (2) Alcohol abuse: (3) Neutropenia: (4) Nausea and vomiting: (5) Liver failure: (6) Thrombocytopenia: (7) Coagulopathy: (8) Hepatitis C: (9) DVT prophylaxis: 47yo F w/ hx of alcohol abuse and cirrhosis admitted on May 24, 2018 with alcohol withdrawal. Alcohol withdrawal: Alcohol abuse: Pancytopenia/neutropenia/anemia/thrombocytopenia likely secondary to liver cirrhosis, Stable slowly improving, no obvious signs of withdrawal, CIWA score is trends down down Continue banana bag at 200 mils per hour every morning times 1 L. Then NSS plus KCl 20 mEq at 100 mils per hour after banana bag completed because she still looks dry, will watch fluid input and output, Continue Zofran 4 mg IV every 6 hours as needed. Continue pantoprazole 40 mg IV daily. Continue AWSS protocol with IV Ativan. counseling services director consult, possible inpatient alcohol rehab after hospitalization. CM/PT/OT all consulted. Nausea and vomiting: Associated with alcohol withdrawal. Possibly some other withdrawl History of other drug abuse, though tox screen on 05/23 was negative. cont Zofran and Protonix as noted above. Liver failure with INR was 1.7 on admission Thrombocytopenia: see above hx of Coagulopathy, Hepatitis C, recommend to follow-up with PCP especially for hep C treatment if patient wanted to DVT prophylaxis will be SCD no heparin productive because of thrombocytopenia, today's platelet is 27,000 from 35,000, Mild low magnesium is replaced, Subjective No report of abdominal pain, no emesis, Report next trauma shaky, awake alert orientated, Review of Systems Constitutional: Positive weakness, or fatigue Respiratory: no cough, sputum, wheezing, Cardiac: No chest pain, No orthopnea, No PND, Abdomen: No pain, No nausea, No vomiting, No diarrhea, Musculoskeletal: No joint pain, No muscle pain, No swelling, : No dysuria, No urinary frequency, No incontinence, No hematuria Neurologic: No paralysis, No weakness, No numbness/tingling, Psychiatric:No anxiety, No insomnia, Heme: No abnormal bleeding/bruising, No clotting problems, No swollen lymph nodes, No night sweats Skin: No rash, No itch, No new/changing skin lesions, No color change, No bleeding Physical Exam 2 Vital Signs (Past 24 Hours): Last Vital Signs Temp 36.8 C 05/26/18 14:28 Pulse 74 05/26/18 14:28 Resp 20 05/26/18 14:28 BP 124/77 05/26/18 14:28 Pulse Ox 94 05/26/18 14:28 Physical Exam: General Appearance: Looks mild tired and pale, no obvious anxious, WD/WN, no apparent distress, Eyes: normal inspection, PERRL, EOMI, sclerae normal ENT: normal ENT inspection, hearing grossly normal, pharynx normal Neck: supple, no adenopathy, thyroid normal, no JVD, no carotid bruits, trachea midline Respiratory/Chest: chest non-tender, normal breath sounds, no respiratory distress, no accessory muscle use, breath sounds, rales, wheezing Cardiovascular: regular rate, rhythm, no JVD, no murmur Abdomen: normal bowel sounds, non tender, soft, no organomegaly, Extremities: normal range of motion, non-tender, normal inspection, no pedal edema, no calf tenderness, normal capillary refill , pelvis stable, joint has no limited range of motion, capillary refill is normal, no cyanosis clubbing Neurologic/Psychiatric: Obvious tremor, 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 nml as tested, no motor/ sensory deficits, alert, normal mood/affect, oriented x 3 Skin: normal color, warm/dry, no rash Lymphatic: no adenopathy Results & Data Laboratory Results Laboratory Results - last 24 hr 05/26/18 05/26/18 05/26/18 05:53 05:53 05:53 WBC 1.71 L RBC 2.81 L Hgb 9.4 L Hct 27.9 L MCV 99.3 MCH 33.5 MCHC 33.7 RDW Std Deviation 58.4 H RDW Coeff of Michelle 16.0 H Plt Count 27 L* MPV 11.4 H Immature Gran % (Auto) 0.6 Neut % (Auto) 32.7 Lymph % (Auto) 49.7 [place] % (Auto) 13.5 Eos % (Auto) 2.9 Baso % (Auto) 0.6 Immature Gran # (Auto) 0.01 Neut # (Auto) 0.56 L* Lymph # (Auto) 0.85 L [place] # (Auto) 0.23 Eos # (Auto) 0.05 Baso # (Auto) 0.01 Giant Platelets 1+ Target Cells 1+ PT 18.0 H INR 1.8 H Sodium 136 Potassium 3.6 Chloride 102 Carbon Dioxide 27 Anion Gap 7.0 BUN 6 L Creatinine 0.57 L Est Cr Clr Drug Dosing 133.4 Est GFR ( Amer) 126.2 Est GFR (Non-Af Amer) 108.9 BUN/Creatinine Ratio 10.2 Glucose 73 Calcium 7.2 L Magnesium 1.4 L Total Bilirubin 2.3 H AST 93 H ALT 34 Alkaline Phosphatase 156 H Total Protein 7.2 Albumin 1.8 L Globulin 5.4 H Albumin/Globulin Ratio 0.3 L _ (1) Alcohol withdrawal Complication of substance-induced condition: with unspecified complication Qualified Code(s): F10.239 - Alcohol dependence with withdrawal, unspecified (2) Neutropenia Neutropenia type: unspecified Qualified Code(s): D70.9 - Neutropenia, unspecified (3) Nausea and vomiting Vomiting Intractability: non-intractable Vomiting type: unspecified Qualified Code(s): R11.2 - Nausea with vomiting, unspecified
[2018-05-26 16:14] LABS: 7-Aminoclonaz, Confirm NEGATIVE NG/ML (CUTOFF=25); Hydro-Alp Ur, GC/MS NEGATIVE NG/ML (CUTOFF=25); Hydroxyethylflurazepam, Conf NEGATIVE NG/ML (CUTOFF=50); Hydroxytriazolam NEGATIVE NG/ML (CUTOFF=50); Lorazepam, Ur GC/MS 80 NG/ML (CUTOFF=50); Nordiazepam, Confirm NEGATIVE NG/ML (CUTOFF=50); Oxazepam Ur, GC/MS 145 NG/ML (CUTOFF=50); Temazepam, Confirm NEGATIVE NG/ML (CUTOFF=50)
[2018-05-27 07:36] LABS: BUN Creatinine Ratio 6.5 (10-20); Calcium 7.3 mg/dl (8.5-10.1); Creatinine Clr Calc Pharmacy 146.3 ml/min; Est GFR (Non-African American) 112.2; Magnesium 1.5 mg/dl (1.8-2.4); Potassium 3.2 mmol/L (3.5-5.1)
[2018-05-27 07:37] LABS: Phosphorus 1.9 mg/dl (2.5-4.9)
[2018-05-27 07:44] LABS: Hematocrit (blood only) 26.7 % (37-47); Hemoglobin 8.7 g/dL (12.0-16.0); Mean Corpuscular Hgb Conc 32.6 g/dL (32-36); Mean Corpuscular Volume 98.9 fL (80-100); Mean Platelet Volume 11.4 fL (7.4-10.4); Platelet Count 32 K/uL (130-400); RDW Coefficient of Variation 16.3 % (11.5-14.5); RDW Standard Deviation 58.6 fL (36.4-46.3); White Blood Count 1.82 K/uL (4.8-10.8)
[2018-05-27 08:30] LABS: Basophils # (auto) 0.01 K/uL (0-0.2); Basophils % (auto) 0.5 %; Eosinophils # (auto) 0.05 K/uL (0-0.5); Eosinophils % (auto) 2.7 %; Giant Platelets 1+; Immature Granulocytes # (auto) 0.01 K/uL (0.00-0.02); Immature Granulocytes % (auto) 0.5 %; Lymphocytes # (auto) 0.87 K/uL (1.2-3.4); Lymphocytes % (auto) 47.8 %; Monocytes # (auto) 0.23 K/uL (0.11-0.59); Monocytes % (auto) 12.6 %; Neutrophils # (auto) 0.65 K/uL (1.4-6.5); Neutrophils % (auto) 35.9 %; Smudge Cells Present
--- NOTE | 2018-05-27 13:05 | Hospitalist Progress Note ---
Date of Service May 27, 2018 Assessment & Plan (1) Alcohol withdrawal: (2) Alcohol abuse: (3) Neutropenia: (4) Nausea and vomiting: (5) Liver failure: (6) Thrombocytopenia: (7) Coagulopathy: (8) Hepatitis C: (9) DVT prophylaxis: 47yo F w/ hx of alcohol abuse and cirrhosis admitted on May 24, 2018 with alcohol withdrawal. Alcohol withdrawal: Still has some episodes with CIWA scores 7-8, on withdrawal protocol, Ativan as needed, Discontinue IV fluid, change banana bag to oral thiamine, multiple vitamin and folic acid Alcohol abuse: Pancytopenia/neutropenia/anemia/thrombocytopenia likely secondary to liver cirrhosis, relative stable slowly improving, Continue Zofran 4 mg IV every 6 hours as needed. Continue pantoprazole 40 mg IV daily. Continue AWSS protocol with IV Ativan. environmental services technician consult, possible inpatient alcohol rehab after hospitalization. CM/PT/OT all consulted. Bloody emesis, decreased hemoglobin level from 9.4 to 8.7, will check stool Hemoccult, History of drug abuse, though tox screen on 05/23 was negative. cont Zofran and Protonix as noted above. Liver failure with INR was 1.7 on admission Pancytopenia and neutropenic, anemic, thrombocytopenia: see above hx of Coagulopathy, Hepatitis C, recommend to follow-up with PCP especially for hep C treatment if patient wanted to Hypokalemia, hypophosphatemia, hypomagnesemia replaced, DVT prophylaxis will be SCD , no heparin productive because of thrombocytopenia Subjective Nursing staff report significant tremor or agitation see was score as 7-8 this morning, which helped with Ativan Patient report has some emesis and possible blood clot in the emesis, When I examining her she has no report of abdominal pain, no emesis, awake alert orientated, patient reported significant back pain, which help with pain medicine, Review of Systems Constitutional: Positive weakness, or fatigue Respiratory: no cough, sputum, wheezing, Cardiac: No chest pain, No orthopnea, No PND, Abdomen: See HPI, no pain, No nausea, No vomiting, No diarrhea, Musculoskeletal: No joint pain, No muscle pain, No swelling, : No dysuria, No urinary frequency, No incontinence, No hematuria Neurologic: No paralysis, No weakness, No numbness/tingling, Psychiatric: No anxiety, No insomnia, Heme: No abnormal bleeding/bruising, No clotting problems, Skin: No rash, No itch, No new/changing skin lesions, Physical Exam 2 Vital Signs (Past 24 Hours): Last Vital Signs Temp 36.9 C 05/27/18 11:43 Pulse 86 05/27/18 11:43 Resp 20 05/27/18 11:43 BP 134/80 05/27/18 11:43 Pulse Ox 95 05/27/18 11:43 Physical Exam: General Appearance: Looks mild tired and pale, no obvious anxious, WD/WN, no apparent distress, Positional, chronic ill looking, Eyes: normal inspection, PERRL, EOMI, sclerae normal ENT: normal ENT inspection, hearing grossly normal, pharynx normal Neck: supple, no adenopathy, thyroid normal, no JVD, no carotid bruits, trachea midline Respiratory/Chest: chest non-tender, normal breath sounds, no respiratory distress, no accessory muscle use, breath sounds, rales, wheezing Cardiovascular: regular rate, rhythm, no JVD, no murmur Abdomen: normal bowel sounds, non tender, soft, no organomegaly, Extremities: normal range of motion, non-tender, normal inspection, Trace pedal edema, no calf tenderness, normal capillary refill, pelvis stable, joint has no limited range of motion, Neurologic/Psychiatric: Obvious tremor, application 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 as tested, no motor/ sensory deficits, alert, normal mood/affect, oriented x 3 Skin: normal color, warm/dry, no rash Lymphatic: no adenopathy Results & Data Laboratory Results Laboratory Results - last 24 hr 05/23/18 05/27/18 05/27/18 20:40 06:28 06:28 WBC 1.82 L RBC 2.70 L Hgb 8.7 L Hct 26.7 L MCV 98.9 MCH 32.2 MCHC 32.6 RDW Std Deviation 58.6 H RDW Coeff of Michelle 16.3 H Plt Count 32 L MPV 11.4 H Immature Gran % (Auto) 0.5 Neut % (Auto) 35.9 Lymph % (Auto) 47.8 [place] % (Auto) 12.6 Eos % (Auto) 2.7 Baso % (Auto) 0.5 Immature Gran # (Auto) 0.01 Neut # (Auto) 0.65 L* Lymph # (Auto) 0.87 L [place] # (Auto) 0.23 Eos # (Auto) 0.05 Baso # (Auto) 0.01 Smudge Cells Present Giant Platelets 1+ Sodium 136 Potassium 3.2 L Chloride 104 Carbon Dioxide 26 Anion Gap 6.0 BUN 3 L Creatinine 0.52 L Est Cr Clr Drug Dosing 146.3 Est GFR ( Amer) 130.0 Est GFR (Non-Af Amer) 112.2 BUN/Creatinine Ratio 6.5 L Glucose 98 Calcium 7.3 L Phosphorus 1.9 L Magnesium 1.5 L U OH-Alprazolam Confrm NEGATIVE 7-[place]mino Clonazepam NEGATIVE Ur Nordiazepam Confirm NEGATIVE U OH-ethylflurazepam NEGATIVE U Lorazepam Cnf GC/MS 80 A U Oxazepam Confm GC/MS 145 A Ur Temazepam Confirm NEGATIVE U OH-Triazolam Confirm NEGATIVE U OH-Midazolam Confirm NEGATIVE _ (1) Alcohol withdrawal Complication of substance-induced condition: with unspecified complication Qualified Code(s): F10.239 - Alcohol dependence with withdrawal, unspecified (2) Neutropenia Neutropenia type: unspecified Qualified Code(s): D70.9 - Neutropenia, unspecified (3) Nausea and vomiting Vomiting Intractability: non-intractable Vomiting type: unspecified Qualified Code(s): R11.2 - Nausea with vomiting, unspecified
[2018-05-27 15:48] LABS: BUN Creatinine Ratio 5.1 (10-20); Calcium 7.4 mg/dl (8.5-10.1); Creatinine Clr Calc Pharmacy 143.5 ml/min; Est GFR (African American) 129.2; Est GFR (Non-African American) 111.5; Magnesium 1.9 mg/dl (1.8-2.4); Phosphorus 3.3 mg/dl (2.5-4.9); Potassium 4.1 mmol/L (3.5-5.1)
[2018-05-27 16:24] LABS: Hematocrit (blood only) 25.1 % (37-47); Hemoglobin 8.4 g/dL (12.0-16.0)
[2018-05-28 09:29] LABS: BUN Creatinine Ratio 4.2 (10-20); Calcium 7.8 mg/dl (8.5-10.1); Creatinine Clr Calc Pharmacy 110.2 ml/min; Est GFR (African American) 118.5; Est GFR (Non-African American) 102.2; Magnesium 1.7 mg/dl (1.8-2.4); Potassium 3.8 mmol/L (3.5-5.1)
[2018-05-28 09:54] LABS: Hematocrit (blood only) 26.6 % (37-47); Mean Corpuscular Hgb Conc 33.8 g/dL (32-36); Mean Corpuscular Volume 98.9 fL (80-100); Mean Platelet Volume 11.3 fL (7.4-10.4); Platelet Count 23 K/uL (130-400); RDW Coefficient of Variation 16.6 % (11.5-14.5); Red Blood Count 2.69 M/uL (4.2-5.4)
[2018-05-28 10:25] LABS: Basophils # (auto) 0.01 K/uL (0-0.2); Basophils % (auto) 0.5 %; Eosinophils # (auto) 0.05 K/uL (0-0.5); Eosinophils % (auto) 2.6 %; Lymphocytes # (auto) 0.77 K/uL (1.2-3.4); Lymphocytes % (auto) 40.5 %; Monocytes # (auto) 0.22 K/uL (0.11-0.59); Monocytes % (auto) 11.6 %; Neutrophils # (auto) 0.85 K/uL (1.4-6.5); Neutrophils % (auto) 44.8 %
--- NOTE | 2018-05-28 13:10 | Hospitalist Progress Note ---
Date of Service May 28, 2018 Assessment & Plan (1) Alcohol withdrawal: (2) Alcohol abuse: (3) Neutropenia: (4) Nausea and vomiting: (5) Liver failure: (6) Thrombocytopenia: (7) Coagulopathy: (8) Hepatitis C: (9) DVT prophylaxis: 47yo F w/ hx of alcohol abuse and cirrhosis admitted on May 24, 2018 with alcohol withdrawal. Has been improving Alcohol withdrawal: Has been improving, Ativan as needed per protocol, has Discontinue IV fluid, Continue multiple vitamin and folic acid Alcohol abuse: Pancytopenia/neutropenia/anemia/thrombocytopenia likely secondary to liver cirrhosis, white count is a little bit better however hemoglobin and platelet level is dropping, , alcoholic bone marrow suppression, continue follow-up, Continue Zofran 4 mg IV every 6 hours as needed. Continue pantoprazole 40 mg IV daily has been changed to p.o., Continue AWSS protocol with IV Ativan. business services manager consult, possible inpatient alcohol rehab after hospitalization. CM/PT/OT all consulted. Bloody emesis, resolved decreased hemoglobin level from 9.4 to 8.7 to 8.4 today, checking stool Hemoccult, History of drug abuse, though tox screen on 05/23 was negative. cont Zofran and Protonix as noted above. Liver failure with INR was 1.7 on admission hx of Coagulopathy, Hepatitis C, recommend to follow-up with PCP especially for hep C treatment if patient wanted to Hypokalemia, hypophosphatemia, hypomagnesemia replaced, DVT prophylaxis will be SCD , no heparin productive because of thrombocytopenia Want to discontinue one-to-one sitter, out of bed to the chair with therapist on nursing staff, hopefully can be discharged home, if not go to rehab, will make sure PT OT on the case Subjective Generally feeling better , eating meal, feel stronger and energetic, no tremor or agitation no emesis no report of abdominal pain, Review of Systems Constitutional: Positive weakness, or fatigue Respiratory: no cough, sputum, wheezing, Cardiac: No chest pain, No orthopnea, No PND, Abdomen: See HPI, no pain, No nausea, No vomiting, No diarrhea, Musculoskeletal: No joint pain, No muscle pain, No swelling, : No dysuria, No urinary frequency, No incontinence, No hematuria Neurologic: No paralysis, No weakness, No numbness/tingling, Psychiatric: No anxiety, No insomnia, Heme: No abnormal bleeding/bruising, No clotting problems, Skin: No rash, No itch, No new/changing skin lesions, Physical Exam 2 Vital Signs (Past 24 Hours): Last Vital Signs Temp 36.8 C 05/28/18 10:49 Pulse 64 05/28/18 10:49 Resp 18 05/28/18 10:49 BP 127/78 05/28/18 10:49 Pulse Ox 98 05/28/18 10:49 Physical Exam: General Appearance: Looks much better, no obvious tired and pale, no obvious anxious, WD/WN, no apparent distress, Positional, chronic ill looking, Eyes: normal inspection, PERRL, EOMI, sclerae normal ENT: normal ENT inspection, hearing grossly normal, pharynx normal Neck: supple, no adenopathy, thyroid normal, no JVD, no carotid bruits, trachea midline Respiratory/Chest: chest non-tender, normal breath sounds, no respiratory distress, no accessory muscle use, breath sounds, rales, wheezing Cardiovascular: regular rate, rhythm, no JVD, no murmur Abdomen: normal bowel sounds, non tender, soft, no organomegaly, Extremities: normal range of motion, non-tender, normal inspection, 1+ pedal edema, no calf tenderness, normal capillary refill, pelvis stable, joint has no limited range of motion, Neurologic/Psychiatric: Obvious tremor, 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, no motor/ sensory deficits, alert, normal mood/affect, oriented x 3 Skin: normal color, warm/dry, no rash Lymphatic: no adenopathy Results & Data Laboratory Results Laboratory Results - last 24 hr 05/27/18 05/27/18 05/28/18 14:49 16:04 09:00 WBC 1.90 L RBC 2.69 L Hgb 8.4 L 9.0 L Hct 25.1 L 26.6 L MCV 98.9 MCH 33.5 MCHC 33.8 RDW Std Deviation 59.0 H RDW Coeff of Michelle 16.6 H Plt Count 23 L* MPV 11.3 H Immature Gran % (Auto) 0.0 Neut % (Auto) 44.8 Lymph % (Auto) 40.5 [place] % (Auto) 11.6 Eos % (Auto) 2.6 Baso % (Auto) 0.5 Immature Gran # (Auto) 0.00 Neut # (Auto) 0.85 L* Lymph # (Auto) 0.77 L [place] # (Auto) 0.22 Eos # (Auto) 0.05 Baso # (Auto) 0.01 Sodium 134 L Potassium 4.1 D Chloride 108 H Carbon Dioxide 23 Anion Gap 3.0 BUN 3 L Creatinine 0.53 L Est Cr Clr Drug Dosing 143.5 Est GFR ( Amer) 129.2 Est GFR (Non-Af Amer) 111.5 BUN/Creatinine Ratio 5.1 L Glucose 98 Calcium 7.4 L Phosphorus 3.3 D Magnesium 1.9 Specimen Hemolysis 05/28/18 09:00 WBC RBC Hgb Hct MCV MCH MCHC RDW Std Deviation RDW Coeff of Michelle Plt Count MPV Immature Gran % (Auto) Neut % (Auto) Lymph % (Auto) [place] % (Auto) Eos % (Auto) Baso % (Auto) Immature Gran # (Auto) Neut # (Auto) Lymph # (Auto) [place] # (Auto) Eos # (Auto) Baso # (Auto) Sodium 135 L Potassium 3.8 Chloride 104 Carbon Dioxide 26 Anion Gap 5.0 BUN 3 L Creatinine 0.69 Est Cr Clr Drug Dosing 110.2 Est GFR ( Amer) 118.5 Est GFR (Non-Af Amer) 102.2 BUN/Creatinine Ratio 4.2 L Glucose 135 H Calcium 7.8 L Phosphorus 3.0 Magnesium 1.7 L Specimen Hemolysis _ (1) Alcohol withdrawal Complication of substance-induced condition: with unspecified complication Qualified Code(s): F10.239 - Alcohol dependence with withdrawal, unspecified (2) Neutropenia Neutropenia type: unspecified Qualified Code(s): D70.9 - Neutropenia, unspecified (3) Nausea and vomiting Vomiting Intractability: non-intractable Vomiting type: unspecified Qualified Code(s): R11.2 - Nausea with vomiting, unspecified
[2018-05-29 06:56] LABS: Hematocrit (blood only) 30.9 % (37-47); Hemoglobin 10.2 g/dL (12.0-16.0); Mean Corpuscular Volume 99.4 fL (80-100); Mean Platelet Volume 11.6 fL (7.4-10.4); Platelet Count 36 K/uL (130-400); RDW Coefficient of Variation 17.1 % (11.5-14.5); RDW Standard Deviation 60.1 fL (36.4-46.3); Red Blood Count 3.11 M/uL (4.2-5.4); White Blood Count 2.14 K/uL (4.8-10.8)
[2018-05-29 07:14] LABS: BUN Creatinine Ratio 6.2 (10-20); Calcium 8.3 mg/dl (8.5-10.1); Creatinine Clr Calc Pharmacy 135.8 ml/min; Est GFR (African American) 126.9; Est GFR (Non-African American) 109.5; Magnesium 1.7 mg/dl (1.8-2.4); Phosphorus 3.4 mg/dl (2.5-4.9); Potassium 3.7 mmol/L (3.5-5.1)
[2018-05-29 07:36] LABS: Basophils # (auto) 0.01 K/uL (0-0.2); Basophils % (auto) 0.5 %; Eosinophils # (auto) 0.07 K/uL (0-0.5); Eosinophils % (auto) 3.3 %; Giant Platelets 3+; Lymphocytes # (auto) 1.15 K/uL (1.2-3.4); Lymphocytes % (auto) 53.7 %; Monocytes # (auto) 0.29 K/uL (0.11-0.59); Monocytes % (auto) 13.6 %; Neutrophils # (auto) 0.62 K/uL (1.4-6.5); Neutrophils % (auto) 28.9 %; Polychromasia 1+; Target Cells 1+
--- NOTE | 2018-05-29 16:10 | Hospitalist Progress Note ---
Date of Service May 29, 2018 Assessment & Plan (1) Alcohol withdrawal: (2) Alcohol abuse: (3) Neutropenia: (4) Nausea and vomiting: (5) Liver failure: (6) Thrombocytopenia: (7) Coagulopathy: (8) Hepatitis C: (9) DVT prophylaxis: 47yo F w/ hx of alcohol abuse and cirrhosis admitted on May 24, 2018 with alcohol withdrawal. Has been improving Alcohol withdrawal: Has been improving, Ativan as needed per protocol, has Discontinue IV fluid, encourage oral fluid Continue oral multiple vitamin and folic acid Change IV Ativan to oral as needed Alcohol abuse: Pancytopenia/neutropenia/anemia/thrombocytopenia likely secondary to liver cirrhosis, or from alcoholic bone marrow suppression white count is a little bit better however still neutropenic, , hemoglobin and platelet level is better than yesterday, continue follow-up, Continue Zofran 4 mg IV every 6 hours as needed. Changed pantoprazole 40 mg IV daily to p.o., Continue AWSS protocol with po Ativan. bibliographic services specialist consult, possible inpatient alcohol rehab after hospitalization. Bloody emesis, resolved decreased hemoglobin level from 9.4 to 8.7 to 8.4 today, checking stool Hemoccult, History of drug abuse, though tox screen on 05/23 was negative. cont Zofran and Protonix as noted above. Liver failure with INR was 1.7 on admission hx of Coagulopathy, Hepatitis C, recommend to follow-up with PCP especially for hep C treatment if patient wanted to hypomagnesemia replaced by IV, continue oral p.o. Patient has been continued to refuse inpatient rehab, states she will participate in outpatient AA and she will be moving in with her boyfriend. She is no longer 1:1. Possible discharge tomorrow per Dr Lou. Case management to follow. DVT prophylaxis will be SCD , no heparin productive because of thrombocytopenia Plan to discharged home, per nursing staff patient has been up and walk, will have PT OT make sure she walk okay Subjective Significant improving, eating meal, feel stronger and energetic, no tremor or agitation no emesis no report of abdominal pain, Review of Systems Constitutional: Positive weakness, or fatigue Respiratory: no cough, sputum, wheezing, Cardiac: No chest pain, No orthopnea, No PND, Abdomen: See HPI, no pain, No nausea, No vomiting, No diarrhea, Musculoskeletal: No joint pain, No muscle pain, No swelling, : No dysuria, No urinary frequency, No incontinence, No hematuria Neurologic: No paralysis, No weakness, No numbness/tingling, Psychiatric: No anxiety, No insomnia, Heme: No abnormal bleeding/bruising, No clotting problems, Skin: No rash, No itch, No new/changing skin lesions, Physical Exam 2 Vital Signs (Past 24 Hours): Last Vital Signs Temp 36.7 C 05/29/18 15:36 Pulse 89 05/29/18 15:36 Resp 16 05/29/18 15:36 BP 121/76 05/29/18 15:36 Pulse Ox 94 05/29/18 15:36 Physical Exam: General Appearance: Looks much better, pleasant and talkative, WD/WN, no apparent distress, EOMI, sclerae normal ENT: normal ENT inspection, hearing grossly normal, pharynx normal Neck: supple, no adenopathy, thyroid normal, no JVD, no carotid bruits, trachea midline Respiratory/Chest: chest non-tender, normal breath sounds, no respiratory distress, no accessory muscle use, breath sounds, rales, wheezing Cardiovascular: regular rate, rhythm, no JVD, no murmur Abdomen: normal bowel sounds, non tender, soft, no organomegaly, Extremities: normal range of motion, non-tender, normal inspection, 1+ pedal edema, no calf tenderness, normal capillary refill, pelvis stable, joint has no limited range of motion, Neurologic/Psychiatric: no Obvious tremor, manager food 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 as tested, no motor/ sensory deficits, alert, normal mood/affect, oriented x 3 Skin: normal color, warm/dry, no rash Lymphatic: no adenopathy Results & Data Laboratory Results Laboratory Results - last 24 hr 05/29/18 05/29/18 06:01 06:01 WBC 2.14 L RBC 3.11 L Hgb 10.2 L Hct 30.9 L MCV 99.4 MCH 32.8 MCHC 33.0 RDW Std Deviation 60.1 H RDW Coeff of Michelle 17.1 H Plt Count 36 L D MPV 11.6 H Immature Gran % (Auto) 0.0 Neut % (Auto) 28.9 Lymph % (Auto) 53.7 [place] % (Auto) 13.6 Eos % (Auto) 3.3 Baso % (Auto) 0.5 Immature Gran # (Auto) 0.00 Neut # (Auto) 0.62 L* Lymph # (Auto) 1.15 L [place] # (Auto) 0.29 Eos # (Auto) 0.07 Baso # (Auto) 0.01 Giant Platelets 3+ Polychromasia 1+ Target Cells 1+ Sodium 138 Potassium 3.7 Chloride 106 Carbon Dioxide 26 Anion Gap 6.0 BUN 4 L Creatinine 0.56 L Est Cr Clr Drug Dosing 135.8 Est GFR ( Amer) 126.9 Est GFR (Non-Af Amer) 109.5 BUN/Creatinine Ratio 6.2 L Glucose 93 Calcium 8.3 L Phosphorus 3.4 Magnesium 1.7 L _ (1) Alcohol withdrawal Complication of substance-induced condition: with unspecified complication Qualified Code(s): F10.239 - Alcohol dependence with withdrawal, unspecified (2) Neutropenia Neutropenia type: unspecified Qualified Code(s): D70.9 - Neutropenia, unspecified (3) Nausea and vomiting Vomiting Intractability: non-intractable Vomiting type: unspecified Qualified Code(s): R11.2 - Nausea with vomiting, unspecified
[2018-05-30 05:03] VITALS: TEMP 98.2
[2018-05-30 06:52] LABS: Hematocrit (blood only) 30.8 % (37-47); Hemoglobin 10.5 g/dL (12.0-16.0); Mean Corpuscular Hgb Conc 34.1 g/dL (32-36); Mean Corpuscular Volume 99.7 fL (80-100); Mean Platelet Volume 12.4 fL (7.4-10.4); Platelet Count 46 K/uL (130-400); RDW Coefficient of Variation 17.6 % (11.5-14.5); RDW Standard Deviation 62.1 fL (36.4-46.3); Red Blood Count 3.09 M/uL (4.2-5.4); White Blood Count 2.25 K/uL (4.8-10.8)
[2018-05-30 07:01] VITALS: BP 106/69; O2SAT 94
[2018-05-30 07:08] LABS: BUN Creatinine Ratio 12.4 (10-20); Calcium 7.8 mg/dl (8.5-10.1); Creatinine Clr Calc Pharmacy 143.5 ml/min; Est GFR (African American) 129.2; Est GFR (Non-African American) 111.5; Magnesium 1.6 mg/dl (1.8-2.4); Phosphorus 3.1 mg/dl (2.5-4.9); Potassium 3.7 mmol/L (3.5-5.1)
[2018-05-30 07:34] LABS: Basophils # (auto) 0.01 K/uL (0-0.2); Basophils % (auto) 0.4 %; Eosinophils # (auto) 0.08 K/uL (0-0.5); Eosinophils % (auto) 3.6 %; Giant Platelets 2+; Lymphocytes # (auto) 1.18 K/uL (1.2-3.4); Lymphocytes % (auto) 52.4 %; Monocytes # (auto) 0.33 K/uL (0.11-0.59); Monocytes % (auto) 14.7 %; Neutrophils # (auto) 0.65 K/uL (1.4-6.5); Neutrophils % (auto) 28.9 %; Target Cells 1+
[2018-05-30 13:48] VITALS: PULSE 84
--- NOTE | 2018-05-30 16:06 | Discharge Summary ---
Date of Service May 30, 2018 Admission HPI Per Admitting Provider The patient is a 47-year-old female with severe alcohol dependency and alcoholism, who presents to the emergency department with the same set of symptoms as with previous admissions, that of intractable nausea and vomiting and epigastric discomfort. Her laboratories are the same as far as increased AST, increased INR and of the laboratories are reflective of her cirrhosis and chronic liver failure. The main difference this time, is that her alcohol level is elevated at 348. Principal Diagnosis no Discharge Data Allergies Allergy/AdvReac Type Severity Reaction Status Date / Time acetaminophen [From Tylenol] AdvReac Intermediate HX Verified 05/24/18 00:25 CIRRHOSIS NSAIDS (Non-Steroidal AdvReac Intermediate HX Verified 05/24/18 00:25 Anti-Inflamma CIRRHOSIS phenytoin AdvReac Intermediate LOSS OF Verified 05/24/18 00:25 EQUILIBRIUM Consultations 05/24/18 00:03 ED Decision to Admit Stat 05/24/18 02:06 Consult Case Management - Discharge Planning Routine 05/25/18 08:10 Consult Gastroenterology Routine Ordered Studies 05/25/18 US duplex portal hepatic veins Routine 05/25/18 07:50 US abdomen limited Routine Hospital Course (1) Alcohol withdrawal: (2) Alcohol abuse: (3) Neutropenia: (4) Nausea and vomiting: (5) Liver failure: (6) Thrombocytopenia: (7) Coagulopathy: (8) Hepatitis C: (9) DVT prophylaxis: 47yo F w/ hx of alcohol abuse and cirrhosis admitted on May 24, 2018 with alcohol withdrawal. Has been improving Alcohol withdrawal: Has been improving, Ativan as needed per protocol, has Discontinue IV fluid, encourage oral fluid Continue oral multiple vitamin and folic acid Change IV Ativan to oral as needed Has been continuous stable and improving for 2 days, up and walk, Has been reevaluated by physical therapy and occupational therapy and they feel patient is safe to go home Alcohol abuse: Pancytopenia/neutropenia/anemia/thrombocytopenia likely secondary to liver cirrhosis, or from alcoholic bone marrow suppression Has been stable and improving however need to follow-up with PCP, Continue Zofran 4 mg IV every 6 hours as needed. Changed pantoprazole 40 mg IV daily to p.o., Continue AWSS protocol with po Ativan. Bloody emesis upon admission, resolved decreased hemoglobin level from 9.4 to 8.7 to 8.4 today, checking stool Hemoccult was sent however not able to collection a sample, History of drug abuse, though tox screen on 05/23 was negative. Has been on Zofran and Protonix as noted above. Liver failure with INR was 1.7 on admission hx of Coagulopathy, Hepatitis C, recommend to follow-up with PCP especially for hep C treatment if patient wanted to hypomagnesemia replaced by IV, continue oral p.o. to follow with PCP to repeat the levels in 1 week and replace accordingly, has encourage patient to eat balanced food, Patient has been continued to refuse inpatient rehab, states she will participate in outpatient AA and she will be moving in with her boyfriend. She is no longer 1:1. DVT prophylaxis will be SCD , no heparin productive because of thrombocytopenia Plan to discharged home, per nursing staff patient has been up and walk, Most importantly upon discharge, patient need to continue pantoprazole 40 mg daily p.o. strongly recommend out patient or inpatient alcohol rehab after hospitalization , please talk this more with pcp you have alcoholic Liver failure , recommend to follow-up with PCP, and GI especially for hep C treatment Patient agreed, Subjective upon discharge: Doing well no complaints and excited to go home Review of system upon discharge: Constitutional: Positive weakness, or fatigue Respiratory: no cough, sputum, wheezing, Cardiac: No chest pain, No orthopnea, No PND, Abdomen: no pain, No nausea, No vomiting, No diarrhea, Musculoskeletal: No joint pain, No muscle pain, No swelling, : No dysuria, No urinary frequency, No incontinence, No hematuria Neurologic: No paralysis, No weakness, No numbness/tingling, Psychiatric: No anxiety, No insomnia, Heme: No abnormal bleeding/bruising, No clotting problems, Skin: No rash, No itch, No new/changing skin lesions, Physical Exam General Appearance: Looks much better, pleasant and talkative, WD/WN, no apparent distress, EOMI, sclerae normal ENT: normal ENT inspection, hearing grossly normal, pharynx normal Neck: supple, no adenopathy, thyroid normal, no JVD, no carotid bruits, trachea midline Respiratory/Chest: chest non-tender, normal breath sounds, no respiratory distress, no accessory muscle use, breath sounds, rales, wheezing Cardiovascular: regular rate, rhythm, no JVD, no murmur Abdomen: normal bowel sounds, non tender, soft, no organomegaly, Extremities: normal range of motion, non-tender, normal inspection, 1+ pedal edema, no calf tenderness, normal capillary refill, pelvis stable, joint has no limited range of motion, Neurologic/Psychiatric: no Obvious tremor, hr assistant II-XII nml as tested, no motor/ sensory deficits, alert, normal mood/affect, oriented x 3 Skin: normal color, warm/dry, no rash Lymphatic: no adenopathy Lab data upon discharge: Laboratory Results - last 24 hr 05/30/18 05/30/18 06:15 06:15 WBC 2.25 L RBC 3.09 L Hgb 10.5 L Hct 30.8 L MCV 99.7 MCH 34.0 MCHC 34.1 RDW Std Deviation 62.1 H RDW Coeff of Michelle 17.6 H Plt Count 46 L MPV 12.4 H Immature Gran % (Auto) 0.0 Neut % (Auto) 28.9 Lymph % (Auto) 52.4 [place] % (Auto) 14.7 Eos % (Auto) 3.6 Baso % (Auto) 0.4 Immature Gran # (Auto) 0.00 Neut # (Auto) 0.65 L* Lymph # (Auto) 1.18 L [place] # (Auto) 0.33 Eos # (Auto) 0.08 Baso # (Auto) 0.01 Giant Platelets 2+ Target Cells 1+ Sodium 136 Potassium 3.7 Chloride 108 H Carbon Dioxide 25 Anion Gap 3.0 BUN 7 Creatinine 0.53 L Est Cr Clr Drug Dosing 143.5 Est GFR ( Amer) 129.2 Est GFR (Non-Af Amer) 111.5 BUN/Creatinine Ratio 12.4 Glucose 88 Calcium 7.8 L Phosphorus 3.1 Magnesium 1.6 L Total Time Total Time Spent Total Time Spent (In Minutes): 35 Total Time Includes: Examination of the Patient, Discharge Planning, Medication Reconciliation and Communication With Other Providers Discharge Plan Discharge Items Patient Disposition: Home - Self-Care Reason For Visit: ALCOHOL OVERDOSE, LIVER FAILURE, COAGULOPATHY Discharge Diagnosis: alcohol withdrawal Discharge Goals: Decrease discomfort, Diagnostic testing, Improve disease control and Improve function Activity: Resume your previous activity Non-emergency contact: Primary Care Provider Call non-emergency contact if: you have any medication questions Follow-up/Referrals: Marjorie Del Castillo C.R.N.P. [Primary Care Provider] - 06/03/18 12:30 pm (Please, follow up at [facility] with Marjorie Del Castillo [facility] on SaturdayJune 03 at 12:30 pm. *This office is located at [address] in [place]. If you need to cancel or change this appointment, call the office at .) Diet: Heart Healthy Add Provider Instructions: you have Alcohol withdrawal you have Pancytopenia/neutropenia/anemia/thrombocytopenia likely secondary to liver cirrhosis, or from alcoholic bone marrow suppression continue pantoprazole 40 mg IV daily to p.o. strongly recommend out patient or inpatient alcohol rehab after hospitalization , please talk this more with pcp you have alcoholic Liver failure , recommend to follow-up with PCP, and GI especially for hep C treatment if you wanted you need to follow up with your primary care physician in 1 week, - take medication as instructed, never overdose or any misuse, or take with alcohol, because misuse of medicine may cause organ damage or , call me , or your primary care physician if have questions of discharge medicaitons. - call your primary care physician, or go to local emergency room if has any fever/chill, chest pain, shortness of breathing, nausea/vomiting/abdominal pain , facial droop/slurry speech/local weakness, or if has any questions. - fall precaution - diet as instructed - continue quit smoking and alcohol -You need to follow-up with Dr. Sadler in 2-3-week in [facility] Prescriptions: New thiamine HCl (vitamin B1) [Vitamin B-1] 100 mg Tablet 100 mg PO QAM 30 Days Qty: 30 RF: 0 pediatric [id number] [Flintstones Complete (iron)] Tablet,Chewable 1 tab PO QAM Qty: 30 RF: 0 pantoprazole 40 mg Tablet,Delayed Release (Dr/Ec) 40 mg PO QAM 30 Days Qty: 30 RF: 0 nicotine [Nicoderm CQ] 21 mg/24 hr Patch 24 Hour 21 mg Transdermal QAM 30 Days Qty: 30 RF: 0 celecoxib [Celebrex] 100 mg Capsule 100 mg PO BID PRN (Reason: pain) 5 Days Qty: 10 RF: 0 Continue gabapentin 400 mg capsule 400 mg PO QID RF: 0 magnesium oxide 400 mg (241.3 mg magnesium) tablet 400 mg PO BID RF: 0 folic acid 1 mg tablet 1 mg PO DAILY RF: 0 digestive enzymes Capsule 5 cap PO DAILY RF: 0 Stand-Alone Forms: [facility] Discharge Orders: Discharge Order (Routine); Ordered 05/30/18 Ordered By: Dale Lou Admission Data Admit Date/Time: 05/24/18 00:56 Attending Provider: Dale Lou Admit Provider: Zack Alejandra Primary Care Provider: Marjorie Del Castillo Other Providers: Tad Roland ; Harjinder Sadler Service: Telemetry Medical Other Interventions: Discharge Summary Assessment (RN) Last Done: 05/30/18 13:46
== END 2018-05-30 21:29 | disposition home or self-care (01) | DRG 897 ==
LOC: ED 20:20 → SUATTDRO 05-24 00:56 → 2N 05-24 00:56
DX: Z79.899 Other long term (current) drug therapy; K29.20 Alcoholic gastritis without bleeding; F25.9 Schizoaffective disorder, unspecified; E83.39 Other disorders of phosphorus metabolism; D68.9 Coagulation defect, unspecified; F32.9 Major depressive disorder, single episode, unspecified; B18.2 Chronic viral hepatitis C; R11.2 Nausea with vomiting, unspecified; T51.0X1A Toxic effect of ethanol, accidental (unintentional), initial encounter; D73.1 Hypersplenism; K70.30 Alcoholic cirrhosis of liver without ascites; E87.6 Hypokalemia; K70.40 Alcoholic hepatic failure without coma; Y90.8 Blood alcohol level of 240 mg/100 ml or more; N18.3 Chronic kidney disease, stage 3 (moderate); Z88.8 Allergy status to other drugs, medicaments and biological substances; F17.210 Nicotine dependence, cigarettes, uncomplicated; F17.200 Nicotine dependence, unspecified, uncomplicated; F41.9 Anxiety disorder, unspecified; F10.231 Alcohol dependence with withdrawal delirium; Z88.6 Allergy status to analgesic agent; B19.20 Unspecified viral hepatitis C without hepatic coma; I12.9 Hypertensive chronic kidney disease with stage 1 through stage 4 chronic kidney disease, or unspecified chronic kidney disease; E83.42 Hypomagnesemia; F10.229 Alcohol dependence with intoxication, unspecified; D61.818 Other pancytopenia

== ENCOUNTER 2018-06-28 20:16 | Inpatient (IN) ==
[2018-06-28] MEDS ORDERED: PANTOprazole 40 MG in SYRINGE 0 ML IV ONE (20:26)
[2018-06-28] MEDS ORDERED: ONDANSETRON INJ 2 MG/ML 2 ML VIAL IV STA (20:26)
[2018-06-28] MEDS ORDERED: LORazepam 1 MG/2 ML VIAL IV STA (20:27)
[2018-06-28] MEDS ORDERED: SODIUM CHLORIDE 0.9% 1000ML 1,000 ML IV SCH (20:30)
[2018-06-28] MEDS ORDERED: MULTI-VITAMIN INFUSION 10 ML, THIAMINE HCL 100 MG, FOLIC ACID 1 MG in SODIUM CHLORIDE 0... IV SCH (20:30)
--- NOTE | 2018-06-28 20:51 | XRay Report ---
XR chest 1V portable CLINICAL HISTORY: abd pain pain COMPARISON STUDY: 06/17/2018 FINDINGS: The bones soft tissues and hemidiaphragms are normal. The cardiomediastinal silhouette is n ormal. The lungs are clear. The pulmonary vasculature is normal. IMPRESSION: Negative chest. The above report was generated using voice recognition software. It may contain grammatical, syntax or spelling errors. Electronically signed by: Silvino Alcazar M.D. 06/28/2018 8:48 PM
[2018-06-28 23:03] LABS: INR 1.9 (0.9-1.1); Pregnancy Test, Serum Negative (Negative); Prothrombin Time 18.3 Seconds (9.0-12.0)
[2018-06-28 23:25] LABS: Alanine Aminotransferase 62 U/L (12-78); Aspartate Aminotransferase 141 U/L (15-37); Bilirubin Direct 1.2 mg/dl (0-0.2); Blood Urea Nitrogen 4 mg/dl (7-18); Calcium 6.7 mg/dl (8.5-10.1); Carbon Dioxide 26 mmol/L (21-32); Chloride 107 mmol/L (98-107); Creatinine Clr Calc Pharmacy 104.6 ml/min; Est GFR (Non-African American) 102.7; Glucose 98 mg/dl (70-99); Magnesium 1.6 mg/dl (1.8-2.4); Potassium 3.7 mmol/L (3.5-5.1); Sodium 140 mmol/L (136-145)
[2018-06-28 23:28] LABS: Albumin Globulin Ratio 0.4 (0.9-2); Alkaline Phosphatase 175 U/L (45-117); Bilirubin,Total 1.7 mg/dl (0.2-1); Globulin 5.4 gm/dl (2.5-4.0); Phosphorus 3.2 mg/dl (2.5-4.9); Total Protein 7.4 gm/dl (6.4-8.2); Troponin I < 0.015 ng/ml (0-0.045)
[2018-06-28] MEDS ORDERED: IOVERSOL 100ml IV PRN (23:56)
[2018-06-29 00:10] LABS: Hematocrit (blood only) 28.2 % (37-47); Hemoglobin 9.5 g/dL (12.0-16.0); Mean Corpuscular Hgb Conc 33.7 g/dL (32-36); Mean Corpuscular Volume 96.9 fL (80-100); Mean Platelet Volume 12.6 fL (7.4-10.4); Platelet Count 42 K/uL (130-400); RDW Coefficient of Variation 18.1 % (11.5-14.5); RDW Standard Deviation 64.5 fL (36.4-46.3); Red Blood Count 2.91 M/uL (4.2-5.4); White Blood Count 3.17 K/uL (4.8-10.8)
[2018-06-29] MEDS ORDERED: LORazepam 1 MG/2 ML VIAL IV STA (00:11)
[2018-06-29] MEDS ORDERED: FAMOTIDINE 20MG/5ML IV PUSH IV STA (00:27)
[2018-06-29] MEDS ORDERED: METOCLOPRAMIDE HCL INJ 5 MG/ML 2 ML VIAL IV STA (00:27)
[2018-06-29] MEDS: MAGNESIUM SULFATE / D5W 1 GM/100 ML BAG IV SCH ×6 (00:29→20:03)
[2018-06-29 00:52] LABS: Giant Platelets 2+; Target Cells 1+
[2018-06-29 01:00] LABS: ALC (manual) 1.53 K/uL (1.2-3.4); Blast # (manual) 0.03 K/uL (0-0); Blast Cells % (manual) 0.9 %; Eosinophils # (manual) 0.03 K/uL (0-0.5); Eosinophils % (manual) 0.9 %; Lymphocytes # (manual) 1.16 K/uL (1.2-3.4); Lymphocytes % (manual) 36.6 %; Monocytes # (manual) 0.17 K/uL (0.11-0.59); Monocytes % (manual) 5.4 %; Neutrophils % (manual) 44.6 %; Reactive Lymphocytes # (manual) 0.37 K/uL
[2018-06-29] MEDS ORDERED: CALCIUM GLUCONATE 10% 1,000 MG in SODIUM CHLORIDE 0.9% 50 ML IV STA (01:08)
--- NOTE | 2018-06-29 01:15 | Emergency Department Note ---
Entered by Eileen Lake acting as a scribe for History of Present Illness General Chief complaint: Abdominal Pain Time Seen by Provider: 06/28/18 20:19 Source: patient Mode of arrival: EMS History of Present Illness Onset (ago): unknown (earlier today ) Location: abdomen Pain Consistency: + constant Associated symptoms: + other (bloody emesis) The patient is a 47 year old female who presents to the Emergency Room with complaints of constant abdominal pain that started today. The patient reports she has had 2 episodes of bloody emesis. She has also been taking Aleve for her abdominal pain. She has a history of hepatitis C, cirrhosis, alcoholism, and pancreatitis. She states she drank 2 cans of red wicked apple today. Home Medications Home Medications Medication Instructions Recorded Confirmed Type folic acid 1 mg PO DAILY 05/24/18 06/28/18 History magnesium oxide 400 mg PO BID 05/24/18 06/28/18 History metoprolol tartrate 12.5 mg PO TID 06/06/18 06/28/18 History naproxen sodium [Aleve] 220 mg PO BID PRN 06/28/18 06/28/18 History ondansetron 4 mg PO Q8 PRN 06/28/18 06/28/18 History pedi multivit no.7-folic acid 1 tab PO DAILY 06/28/18 06/28/18 History [Flintstones Tab Chew] thiamine HCl (vitamin B1) [Vitamin 100 mg PO DAILY 06/28/18 06/28/18 History B-1] Allergies Allergy/AdvReac Type Severity Reaction Status Date / Time acetaminophen [From Tylenol] AdvReac Intermediate HX Verified 06/18/18 00:17 CIRRHOSIS NSAIDS (Non-Steroidal AdvReac Intermediate HX Verified 06/18/18 00:17 Anti-Inflamma CIRRHOSIS phenytoin AdvReac Intermediate LOSS OF Verified 06/18/18 00:17 EQUILIBRIUM Past Med/Surg History Medical History Alcohol withdrawal Hypokalemia Seizures Pancreatitis (Chronic) Liver failure Schizoaffective disorder (Chronic) Arthritis Depression Hypertension Liver disease Thyroid disease Gastritis Liver cancer (Chronic) Alcoholism Acute recurrent pancreatitis (Acute Unknown) 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 hepatitis C (Chronic Unknown) Chronic pancreatitis (Chronic Unknown) Cirrhosis, alcoholic (Chronic) Chronic renal failure, stage 3 (moderate) (Chronic) Polysubstance abuse (Acute) Depression with suicidal ideation (Acute) TIA (transient ischemic attack) (Acute) Hypotension (Acute) Neutropenia (Acute) Pancytopenia (Acute) Anemia (Acute) Hypocalcemia (Acute) Hypernatremia (Acute) Alcohol withdrawal Cholecystectomy planned Cholecystectomy planned Hyponatremia Surgical History Cholecystectomy planned History of appendectomy Family History Mother Multiple sclerosis Father , age 52 Acute coronary occlusion without mycocardial infarction Social History Preferred Language: Montenegrin [employer]ination [employer]st Required: No Beliefs That Will Affect Care: None marital status: Current Living Situation: Alone current occupational status: unemployed and disabled Other Information That Helps Us Care for You: No Feels Safe at Home: Yes Safety Concerns: Feels Safe At This Time Smoking Status: Current every day smoker Hx Alcohol Use: Yes Hx Substance Use: No Review of Systems See HPI for pertinent positives & negatives. and A total of 10 systems reviewed and were otherwise negative Physical Exam Vital Signs Vital Signs - 24 hr 06/28/18 20:15 06/28/18 20:18 06/28/18 21:28 Temperature 37 C Temperature Source Oral Sepsis Recent Fever Within 48 Hours No Sepsis New/Unexplained Change in Mental Status No Sepsis Action Taken by Nursing No Action Required Pulse Rate 106 H Pulse Rate [Apical] 95 H 100 H Pulse Rhythm Regular Pulse Rhythm [Apical] Regular Regular Pulse Strength Normal Pulse Strength [Apical] Normal Normal Respiratory Rate 22 18 20 Respiratory Effort / Characteristics Non-Labored Spontaneous Non-Labored Spontaneous Non-Labored Spontaneous Respiratory Depth Normal Normal Normal Respiratory Pattern Regular Regular Regular Blood Pressure 124/94 Blood Pressure [Right Arm] 124/94 110/75 Blood Pressure Mean 104 Blood Pressure Mean [Right Arm] 104 86 Blood Pressure Position Sitting Blood Pressure Position [Right Arm] Lying Sitting Pulse Oximetry 97 94 96 Oxygen Delivery Method Room Air Room Air Room Air 06/28/18 23:40 06/29/18 00:35 06/29/18 01:45 Temperature Temperature Source Sepsis Recent Fever Within 48 Hours Sepsis New/Unexplained Change in Mental Status Sepsis Action Taken by Nursing Pulse Rate Pulse Rate [Apical] 99 H 98 H 94 H Pulse Rhythm Pulse Rhythm [Apical] Regular Regular Pulse Strength Pulse Strength [Apical] Normal Normal Respiratory Rate 22 18 18 Respiratory Effort / Characteristics Non-Labored Spontaneous Non-Labored Spontaneous Respiratory Depth Normal Normal Respiratory Pattern Regular Regular Blood Pressure Blood Pressure [Right Arm] 104/72 111/73 124/69 Blood Pressure Mean Blood Pressure Mean [Right Arm] 82 85 87 Blood Pressure Position Blood Pressure Position [Right Arm] Sitting Lying Pulse Oximetry 95 94 93 Oxygen Delivery Method Room Air Room Air Room Air 06/29/18 02:47 06/29/18 03:00 Temperature 36.7 C Temperature Source Oral Sepsis Recent Fever Within 48 Hours Sepsis New/Unexplained Change in Mental Status Sepsis Action Taken by Nursing Pulse Rate 90 Pulse Rate [Apical] 104 H Pulse Rhythm Pulse Rhythm [Apical] Regular Pulse Strength Pulse Strength [Apical] Normal Respiratory Rate 18 16 Respiratory Effort / Characteristics Non-Labored Spontaneous Respiratory Depth Shallow Respiratory Pattern Regular Blood Pressure 101/66 Blood Pressure [Right Arm] 111/77 Blood Pressure Mean Blood Pressure Mean [Right Arm] 88 Blood Pressure Position Blood Pressure Position [Right Arm] Lying Pulse Oximetry 91 99 Oxygen Delivery Method Room Air Room Air GENERAL: Awake, alert, uncomfortable-appearing, anxious, tremulous. HENT: Normocephalic, atraumatic. Oropharynx with dry mucous membranes and otherwise unremarkable. No oropharygneal evidence of bleeding. EYES: Normal conjunctiva. Sclera non-icteric. NECK: Supple. No nuchal rigidity. FROM. No JVD. RESPIRATORY: Clear to auscultation. CARDIAC: Tachycardic rate, normal rhythm. Extremities warm and well perfused. Pulses equal. ABDOMEN: Soft, non-distended. Mild generalized abdominal tenderness to light touch. No rebound or guarding. No masses. RECTAL: Deferred. MUSCULOSKELETAL: Chest examination reveals no tenderness. The back is symmetrical on inspection without obvious abnormality. There is no CVA tenderness to palpation. No joint edema. LOWER EXTREMITIES: Calves are equal size bilaterally and non-tender. No edema. No discoloration. NEURO: Normal sensorium. No sensory or motor deficits noted. Bilateral upper extremity tremors. No asterixis. SKIN: No rash or jaundice noted. Course 2020: Past medical records reviewed. The patient was evaluated in room C6, and a complete history and physical examination were performed. 0103: I reviewed the patient's case with Dr. Reyes, [facility] Hospitalist. He will evaluate the patient for further management and care. 0106: The patient's labs identified blasts so a peripheral smear will be reviewed on Saturday. Administered Medications Pantoprazole Sodium 40 mg/ (Dextrose) 100 mls @ 20 mls/hr IV Q5H HUGH Stop: 07/29/18 04:29 Last Admin: 06/29/18 05:18 Dose: 8 mg/hr, 20 mls/hr Documented by: [id number] Potassium Chloride/Dextrose/Sod Cl (D5nss + 20meq Kcl) 20 meq in 1,000 mls @ 100 mls/hr IV .Q10H HUGH Stop: 07/29/18 04:29 Last Admin: 06/29/18 05:19 Dose: 100 mls/hr Documented by: [id number] Ioversol (Optiray 320 100ml) 93 ml IV ONCE PRN PRN Reason: Interaction Checking Stop: 07/02/18 23:55 Last Admin: 06/28/18 23:57 Dose: 93 ml Documented by: [id number] Discontinued Medications Famotidine (Pepcid 20mg Iv Push) 20 mg IV ONE STA Stop: 06/29/18 00:28 Last Admin: 06/29/18 00:37 Dose: 20 mg Documented by: [id number] Multivitamins 10 ml/ Thiamine HCl 100 mg/ Folic Acid 1 mg/Sodium Chloride 1,011.2 mls @ 1,011.2 mls/hr IV .Q1H HUGH Stop: 06/28/18 21:29 Last Infusion: 06/29/18 03:18 Dose: 0 mls/hr Documented by: [id number] Admin: 06/28/18 21:36 Dose: 1,011.2 mls/hr Documented by: [id number] Pantoprazole Sodium 40 mg/ (Syringe) 10 mls @ 5 mls/min IV NOW ONE Stop: 06/28/18 20:27 Last Admin: 06/28/18 21:52 Dose: 5 mls/min Documented by: [id number] Sodium Chloride (Nss 1000ml) 1,000 mls @ 999 mls/hr IV .Q1H1M HUGH Stop: 06/28/18 21:30 Last Infusion: 06/29/18 03:18 Dose: 0 mls/hr Documented by: [id number] Admin: 06/28/18 21:37 Dose: 999 mls/hr Documented by: [id number] Lorazepam (Ativan) 1 mg in 2 mls @ 2 mls/min IV NOW STA Stop: 06/28/18 20:28 Last Admin: 06/28/18 21:36 Dose: 1 mls/min Documented by: [id number] Magnesium Sulfate/Dextrose (Magnesium Sulfate / D5w) 1 gm in 100 mls @ 100 mls/hr IV Q1H HUGH Stop: 06/29/18 01:44 Last Infusion: 06/29/18 02:49 Dose: 0 mls/hr Documented by: [id number] Admin: 06/29/18 01:37 Dose: 100 mls/hr Documented by: [id number] Infusion: 06/29/18 01:29 Dose: 100 mls/hr Documented by: [id number] Admin: 06/29/18 00:29 Dose: 100 mls/hr Documented by: [id number] Lorazepam (Ativan) 1 mg in 2 mls @ 2 mls/min IV NOW STA Stop: 06/29/18 00:12 Last Admin: 06/29/18 00:29 Dose: 2 mls/min Documented by: [id number] Calcium Gluconate 1,000 mg/ (Sodium Chloride) 60 mls @ 240 mls/hr IV NOW STA Stop: 06/29/18 01:22 Last Infusion: 06/29/18 01:59 Dose: 0 mls/hr Documented by: [id number] Admin: 06/29/18 01:41 Dose: 240 mls/hr Documented by: [id number] Metoclopramide HCl (Reglan) 10 mg IV NOW STA Stop: 06/29/18 00:28 Last Admin: 06/29/18 00:37 Dose: 10 mg Documented by: [id number] Ondansetron HCl (Zofran) 4 mg IV NOW STA Stop: 06/28/18 20:27 Last Admin: 06/28/18 21:36 Dose: 4 mg Documented by: [id number] Medical Decision Making Differential Diagnosis Etiologies such as appendicitis, diverticulitis, PUD, biliary pathology, UTI, pancreatitis, obstruction, mesenteric ischemia, aortic pathology, infections, inflammatory bowel disease, renal colic, as well as others were entertained. Medical Records Attestation: I reviewed the patient's medical records. Home Medications Current Medication List: was personally reviewed by me Laboratory Data Attestation: I reviewed the patient's lab results. Result diagrams: 06/29/18 04:28 06/29/18 04:28 Lab Results 06/28/18 06/28/18 06/28/18 Range/Units 21:18 21:18 21:18 WBC Cancelled RBC Cancelled Hgb Cancelled Hct Cancelled MCV Cancelled MCH Cancelled MCHC Cancelled RDW Std Deviation Cancelled RDW Coeff of Michelle Cancelled Plt Count Cancelled MPV Cancelled Immature Gran % (Auto) Cancelled Neut % (Auto) Cancelled Lymph % (Auto) Cancelled [place] % (Auto) Cancelled Eos % (Auto) Cancelled Baso % (Auto) Cancelled Immature Gran # (Auto) Cancelled Neut # (Auto) Cancelled Lymph # (Auto) Cancelled [place] # (Auto) Cancelled Eos # (Auto) Cancelled Baso # (Auto) Cancelled Absolute Nucleated RBC Cancelled Nucleated RBC % (auto) Cancelled Neutrophils % (Manual) Cancelled Band Neutrophils % Cancelled Lymphocytes % (Manual) Cancelled Prolymphocyte % Cancelled Reactive Lymphs % (Man) Cancelled Monocytes % (Manual) Cancelled Eosinophils % (Manual) Cancelled Basophils % (Manual) Cancelled Metamyelocytes % (Man) Cancelled Myelocytes % (Man) Cancelled Promyelocytes % (Man) Cancelled Blast Cells % (Manual) Cancelled Plasma Cell % (Manual) Cancelled Other Cells % Cancelled Nucleated RBC % Cancelled Neutrophils # (Manual) Cancelled Band Neutrophils # Cancelled Total Absolute Neuts Cancelled Lymphocytes # (Manual) Cancelled Prolymphocyte # Cancelled Reactive Lymphs # Cancelled Total Abs Lymphocytes Cancelled Monocytes # (Manual) Cancelled Eosinophils # (Manual) Cancelled Basophils # (Manual) Cancelled Metamyelocytes # (Man) Cancelled Myelocytes # (Manual) Cancelled Promyelocytes # (Man) Cancelled Blast Cells # (Man) Cancelled Plasma Cell # (Manual) Cancelled Other Cells # Cancelled Nucleated RBCs # (Man) Cancelled Hypersegmented Neuts Cancelled Hyposegmented Neuts Cancelled Hypogranular Neuts Cancelled Large Granular Lymphs Cancelled # Lrg Granular Lymphs Cancelled Hairy Cells Cancelled Smudge Cells Cancelled Toxic Granulation Cancelled Toxic Vacuolation Cancelled Dohle Bodies Cancelled Bin Rods Cancelled Platelet Estimate Cancelled Hypogranular Platelets Cancelled Clumped Platelets Cancelled Giant Platelets Cancelled Platelet Satelliting Cancelled RBC Morphology Cancelled Polychromasia Cancelled Hypochromasia Cancelled Poikilocytosis Cancelled Basophilic Stippling Cancelled Anisocytosis Cancelled Microcytosis Cancelled Macrocytosis Cancelled Spherocytes Cancelled Pappenheimer Bodies Cancelled Sickle Cells Cancelled Target Cells Cancelled Tear Drop Cells Cancelled Ovalocytes Cancelled Stomatocytes Cancelled [place] Bodies Cancelled Echinocytes Cancelled Acanthocytes (Spur) Cancelled Rouleaux Cancelled RBC Agglutinates Cancelled Schistocytes Cancelled RBC Morph Comment Cancelled Sezary Cell Cancelled PT Cancelled INR Cancelled Sodium Cancelled Potassium Cancelled Chloride Cancelled Carbon Dioxide Cancelled Anion Gap Cancelled BUN Cancelled Creatinine Cancelled Est Cr Clr Drug Dosing Cancelled Est GFR ( Amer) Cancelled Est GFR (Non-Af Amer) Cancelled BUN/Creatinine Ratio Cancelled Glucose Cancelled Calcium Cancelled Phosphorus Cancelled Magnesium Cancelled Total Bilirubin Cancelled Direct Bilirubin Cancelled AST Cancelled ALT Cancelled Alkaline Phosphatase Cancelled Ammonia Troponin I Cancelled Total Protein Cancelled Albumin Cancelled Globulin Cancelled Albumin/Globulin Ratio Cancelled Lipase Cancelled HCG, Qual Specimen Hemolysis Urine Color Urine Appearance (Clear) Urine pH (4.5-7.5) Ur Specific [place] (1.000-1.030) Urine Protein (Negative) Urine Glucose (UA) (Negative) Urine Ketones (Negative) Urine Blood (Negative) Urine Nitrite (Negative) Urine Bilirubin (Negative) Urine Urobilinogen (Negative) Ur Leukocyte Esterase (Negative) Urine RBC (0-4) /hpf Urine WBC (0-5) /hpf Ur Epithelial Cells (0-5) /lpf Urine Bacteria (Negative) Ethyl Alcohol mg/dL Blood Type Antibody Screen 06/28/18 06/28/18 06/28/18 Range/Units 21:18 21:18 21:18 WBC RBC Hgb Hct MCV MCH MCHC RDW Std Deviation RDW Coeff of Michelle Plt Count MPV Immature Gran % (Auto) Neut % (Auto) Lymph % (Auto) [place] % (Auto) Eos % (Auto) Baso % (Auto) Immature Gran # (Auto) Neut # (Auto) Lymph # (Auto) [place] # (Auto) Eos # (Auto) Baso # (Auto) Absolute Nucleated RBC Nucleated RBC % (auto) Neutrophils % (Manual) Band Neutrophils % Lymphocytes % (Manual) Prolymphocyte % Reactive Lymphs % (Man) Monocytes % (Manual) Eosinophils % (Manual) Basophils % (Manual) Metamyelocytes % (Man) Myelocytes % (Man) Promyelocytes % (Man) Blast Cells % (Manual) Plasma Cell % (Manual) Other Cells % Nucleated RBC % Neutrophils # (Manual) Band Neutrophils # Total Absolute Neuts Lymphocytes # (Manual) Prolymphocyte # Reactive Lymphs # Total Abs Lymphocytes Monocytes # (Manual) Eosinophils # (Manual) Basophils # (Manual) Metamyelocytes # (Man) Myelocytes # (Manual) Promyelocytes # (Man) Blast Cells # (Man) Plasma Cell # (Manual) Other Cells # Nucleated RBCs # (Man) Hypersegmented Neuts Hyposegmented Neuts Hypogranular Neuts Large Granular Lymphs # Lrg Granular Lymphs Hairy Cells Smudge Cells Toxic Granulation Toxic Vacuolation Dohle Bodies Bin Rods Platelet Estimate Hypogranular Platelets Clumped Platelets Giant Platelets Platelet Satelliting RBC Morphology Polychromasia Hypochromasia Poikilocytosis Basophilic Stippling Anisocytosis Microcytosis Macrocytosis Spherocytes Pappenheimer Bodies Sickle Cells Target Cells Tear Drop Cells Ovalocytes Stomatocytes [place] Bodies Echinocytes Acanthocytes (Spur) Rouleaux RBC Agglutinates Schistocytes RBC Morph Comment Sezary Cell PT INR Sodium Potassium Chloride Carbon Dioxide Anion Gap BUN Creatinine Est Cr Clr Drug Dosing Est GFR ( Amer) Est GFR (Non-Af Amer) BUN/Creatinine Ratio Glucose Calcium Phosphorus Cancelled Magnesium Cancelled Total Bilirubin Direct Bilirubin AST ALT Alkaline Phosphatase Ammonia Troponin I Total Protein Albumin Globulin Albumin/Globulin Ratio Lipase HCG, Qual Cancelled Specimen Hemolysis Urine Color Urine Appearance (Clear) Urine pH (4.5-7.5) Ur Specific [place] (1.000-1.030) Urine Protein (Negative) Urine Glucose (UA) (Negative) Urine Ketones (Negative) Urine Blood (Negative) Urine Nitrite (Negative) Urine Bilirubin (Negative) Urine Urobilinogen (Negative) Ur Leukocyte Esterase (Negative) Urine RBC (0-4) /hpf Urine WBC (0-5) /hpf Ur Epithelial Cells (0-5) /lpf Urine Bacteria (Negative) Ethyl Alcohol mg/dL Cancelled Blood Type Antibody Screen 06/28/18 06/28/18 06/28/18 Range/Units 21:18 21:18 22:30 WBC RBC Hgb Hct MCV MCH MCHC RDW Std Deviation RDW Coeff of Michelle Plt Count MPV Immature Gran % (Auto) Neut % (Auto) Lymph % (Auto) [place] % (Auto) Eos % (Auto) Baso % (Auto) Immature Gran # (Auto) Neut # (Auto) Lymph # (Auto) [place] # (Auto) Eos # (Auto) Baso # (Auto) Absolute Nucleated RBC Nucleated RBC % (auto) Neutrophils % (Manual) Band Neutrophils % Lymphocytes % (Manual) Prolymphocyte % Reactive Lymphs % (Man) Monocytes % (Manual) Eosinophils % (Manual) Basophils % (Manual) Metamyelocytes % (Man) Myelocytes % (Man) Promyelocytes % (Man) Blast Cells % (Manual) Plasma Cell % (Manual) Other Cells % Nucleated RBC % Neutrophils # (Manual) Band Neutrophils # Total Absolute Neuts Lymphocytes # (Manual) Prolymphocyte # Reactive Lymphs # Total Abs Lymphocytes Monocytes # (Manual) Eosinophils # (Manual) Basophils # (Manual) Metamyelocytes # (Man) Myelocytes # (Manual) Promyelocytes # (Man) Blast Cells # (Man) Plasma Cell # (Manual) Other Cells # Nucleated RBCs # (Man) Hypersegmented Neuts Hyposegmented Neuts Hypogranular Neuts Large Granular Lymphs # Lrg Granular Lymphs Hairy Cells Smudge Cells Toxic Granulation Toxic Vacuolation Dohle Bodies Bin Rods Platelet Estimate Hypogranular Platelets Clumped Platelets Giant Platelets Platelet Satelliting RBC Morphology Polychromasia Hypochromasia Poikilocytosis Basophilic Stippling Anisocytosis Microcytosis Macrocytosis Spherocytes Pappenheimer Bodies Sickle Cells Target Cells Tear Drop Cells Ovalocytes Stomatocytes Call[place] Bodies Echinocytes Acanthocytes (Spur) Rouleaux RBC Agglutinates Schistocytes RBC Morph Comment Sezary Cell PT INR Sodium Potassium Chloride Carbon Dioxide Anion Gap BUN Creatinine Est Cr Clr Drug Dosing Est GFR ( Amer) Est GFR (Non-Af Amer) BUN/Creatinine Ratio Glucose Calcium Phosphorus Magnesium Total Bilirubin Direct Bilirubin AST ALT Alkaline Phosphatase Ammonia Cancelled 40.3 H Troponin I Total Protein Albumin Globulin Albumin/Globulin Ratio Lipase HCG, Qual Specimen Hemolysis Urine Color Urine Appearance (Clear) Urine pH (4.5-7.5) Ur Specific [place] (1.000-1.030) Urine Protein (Negative) Urine Glucose (UA) (Negative) Urine Ketones (Negative) Urine Blood (Negative) Urine Nitrite (Negative) Urine Bilirubin (Negative) Urine Urobilinogen (Negative) Ur Leukocyte Esterase (Negative) Urine RBC (0-4) /hpf Urine WBC (0-5) /hpf Ur Epithelial Cells (0-5) /lpf Urine Bacteria (Negative) Ethyl Alcohol mg/dL Blood Type Cancelled Antibody Screen Cancelled 06/28/18 06/28/18 06/28/18 Range/Units 22:30 22:31 22:31 WBC 3.17 L RBC 2.91 L Hgb 9.5 L Hct 28.2 L MCV 96.9 MCH 32.6 MCHC 33.7 RDW Std Deviation 64.5 H RDW Coeff of Michelle 18.1 H Plt Count 42 L MPV 12.6 H Immature Gran % (Auto) Neut % (Auto) Lymph % (Auto) [place] % (Auto) Eos % (Auto) Baso % (Auto) Immature Gran # (Auto) Neut # (Auto) Lymph # (Auto) [place] # (Auto) Eos # (Auto) Baso # (Auto) Absolute Nucleated RBC Nucleated RBC % (auto) Neutrophils % (Manual) 44.6 Band Neutrophils % Lymphocytes % (Manual) 36.6 Prolymphocyte % Reactive Lymphs % (Man) 11.6 Monocytes % (Manual) 5.4 Eosinophils % (Manual) 0.9 Basophils % (Manual) Metamyelocytes % (Man) Myelocytes % (Man) Promyelocytes % (Man) Blast Cells % (Manual) 0.9 Plasma Cell % (Manual) Other Cells % Nucleated RBC % Neutrophils # (Manual) 1.41 Band Neutrophils # Total Absolute Neuts 1.41 Lymphocytes # (Manual) 1.16 L Prolymphocyte # Reactive Lymphs # 0.37 Total Abs Lymphocytes 1.53 Monocytes # (Manual) 0.17 Eosinophils # (Manual) 0.03 Basophils # (Manual) Metamyelocytes # (Man) Myelocytes # (Manual) Promyelocytes # (Man) Blast Cells # (Man) 0.03 H Plasma Cell # (Manual) Other Cells # Nucleated RBCs # (Man) Hypersegmented Neuts Hyposegmented Neuts Hypogranular Neuts Large Granular Lymphs # Lrg Granular Lymphs Hairy Cells Smudge Cells Present Toxic Granulation Toxic Vacuolation Dohle Bodies Bin Rods Platelet Estimate Hypogranular Platelets Clumped Platelets Giant Platelets 2+ Platelet Satelliting RBC Morphology Polychromasia Hypochromasia Poikilocytosis Basophilic Stippling Anisocytosis Microcytosis Macrocytosis Spherocytes Pappenheimer Bodies Sickle Cells Target Cells 1+ Tear Drop Cells Ovalocytes Stomatocytes Callahan-[place] Bodies Echinocytes Acanthocytes (Spur) Rouleaux RBC Agglutinates Schistocytes RBC Morph Comment Sezary Cell PT 18.3 H INR 1.9 H Sodium Potassium Chloride Carbon Dioxide Anion Gap BUN Creatinine Est Cr Clr Drug Dosing Est GFR ( Amer) Est GFR (Non-Af Amer) BUN/Creatinine Ratio Glucose Calcium Phosphorus Magnesium Total Bilirubin Direct Bilirubin AST ALT Alkaline Phosphatase Ammonia Troponin I Total Protein Albumin Globulin Albumin/Globulin Ratio Lipase HCG, Qual Specimen Hemolysis Urine Color Urine Appearance (Clear) Urine pH (4.5-7.5) Ur Specific [place] (1.000-1.030) Urine Protein (Negative) Urine Glucose (UA) (Negative) Urine Ketones (Negative) Urine Blood (Negative) Urine Nitrite (Negative) Urine Bilirubin (Negative) Urine Urobilinogen (Negative) Ur Leukocyte Esterase (Negative) Urine RBC (0-4) /hpf Urine WBC (0-5) /hpf Ur Epithelial Cells (0-5) /lpf Urine Bacteria (Negative) Ethyl Alcohol mg/dL 272.4 H Blood Type Antibody Screen 06/28/18 06/28/18 06/28/18 Range/Units 22:31 22:31 22:31 WBC RBC Hgb Hct MCV MCH MCHC RDW Std Deviation RDW Coeff of Michelle Plt Count MPV Immature Gran % (Auto) Neut % (Auto) Lymph % (Auto) [place] % (Auto) Eos % (Auto) Baso % (Auto) Immature Gran # (Auto) Neut # (Auto) Lymph # (Auto) [place] # (Auto) Eos # (Auto) Baso # (Auto) Absolute Nucleated RBC Nucleated RBC % (auto) Neutrophils % (Manual) Band Neutrophils % Lymphocytes % (Manual) Prolymphocyte % Reactive Lymphs % (Man) Monocytes % (Manual) Eosinophils % (Manual) Basophils % (Manual) Metamyelocytes % (Man) Myelocytes % (Man) Promyelocytes % (Man) Blast Cells % (Manual) Plasma Cell % (Manual) Other Cells % Nucleated RBC % Neutrophils # (Manual) Band Neutrophils # Total Absolute Neuts Lymphocytes # (Manual) Prolymphocyte # Reactive Lymphs # Total Abs Lymphocytes Monocytes # (Manual) Eosinophils # (Manual) Basophils # (Manual) Metamyelocytes # (Man) Myelocytes # (Manual) Promyelocytes # (Man) Blast Cells # (Man) Plasma Cell # (Manual) Other Cells # Nucleated RBCs # (Man) Hypersegmented Neuts Hyposegmented Neuts Hypogranular Neuts Large Granular Lymphs # Lrg Granular Lymphs Hairy Cells Smudge Cells Toxic Granulation Toxic Vacuolation Dohle Bodies Bin Rods Platelet Estimate Hypogranular Platelets Clumped Platelets Giant Platelets Platelet Satelliting RBC Morphology Polychromasia Hypochromasia Poikilocytosis Basophilic Stippling Anisocytosis Microcytosis Macrocytosis Spherocytes Pappenheimer Bodies Sickle Cells Target Cells Tear Drop Cells Ovalocytes Stomatocytes [place] Bodies Echinocytes Acanthocytes (Spur) Rouleaux RBC Agglutinates Schistocytes RBC Morph Comment Sezary Cell PT INR Sodium 140 Potassium 3.7 Chloride 107 Carbon Dioxide 26 Anion Gap 7.0 BUN 4 L Creatinine 0.68 Est Cr Clr Drug Dosing 104.6 Est GFR ( Amer) 119.0 Est GFR (Non-Af Amer) 102.7 BUN/Creatinine Ratio 6.0 L Glucose 98 Calcium 6.7 L Phosphorus 3.2 Magnesium 1.6 L Total Bilirubin 1.7 H Direct Bilirubin 1.2 H AST 141 H ALT 62 Alkaline Phosphatase 175 H Ammonia Troponin I < 0.015 Total Protein 7.4 Albumin 2.0 L Globulin 5.4 H Albumin/Globulin Ratio 0.4 L Lipase 292 HCG, Qual Negative Specimen Hemolysis Urine Color Urine Appearance (Clear) Urine pH (4.5-7.5) Ur Specific [place] (1.000-1.030) Urine Protein (Negative) Urine Glucose (UA) (Negative) Urine Ketones (Negative) Urine Blood (Negative) Urine Nitrite (Negative) Urine Bilirubin (Negative) Urine Urobilinogen (Negative) Ur Leukocyte Esterase (Negative) Urine RBC (0-4) /hpf Urine WBC (0-5) /hpf Ur Epithelial Cells (0-5) /lpf Urine Bacteria (Negative) Ethyl Alcohol mg/dL Blood Type A Positive Antibody Screen NEGATIVE 06/29/18 06/29/18 06/29/18 Range/Units 04:28 04:28 04:40 WBC RBC Hgb 9.3 L Hct 27.6 L MCV MCH MCHC RDW Std Deviation RDW Coeff of Michelle Plt Count MPV Immature Gran % (Auto) Neut % (Auto) Lymph % (Auto) [place] % (Auto) Eos % (Auto) Baso % (Auto) Immature Gran # (Auto) Neut # (Auto) Lymph # (Auto) [place] # (Auto) Eos # (Auto) Baso # (Auto) Absolute Nucleated RBC Nucleated RBC % (auto) Neutrophils % (Manual) Band Neutrophils % Lymphocytes % (Manual) Prolymphocyte % Reactive Lymphs % (Man) Monocytes % (Manual) Eosinophils % (Manual) Basophils % (Manual) Metamyelocytes % (Man) Myelocytes % (Man) Promyelocytes % (Man) Blast Cells % (Manual) Plasma Cell % (Manual) Other Cells % Nucleated RBC % Neutrophils # (Manual) Band Neutrophils # Total Absolute Neuts Lymphocytes # (Manual) Prolymphocyte # Reactive Lymphs # Total Abs Lymphocytes Monocytes # (Manual) Eosinophils # (Manual) Basophils # (Manual) Metamyelocytes # (Man) Myelocytes # (Manual) Promyelocytes # (Man) Blast Cells # (Man) Plasma Cell # (Manual) Other Cells # Nucleated RBCs # (Man) Hypersegmented Neuts Hyposegmented Neuts Hypogranular Neuts Large Granular Lymphs # Lrg Granular Lymphs Hairy Cells Smudge Cells Toxic Granulation Toxic Vacuolation Dohle Bodies Bin Rods Platelet Estimate Hypogranular Platelets Clumped Platelets Giant Platelets Platelet Satelliting RBC Morphology Polychromasia Hypochromasia Poikilocytosis Basophilic Stippling Anisocytosis Microcytosis Macrocytosis Spherocytes Pappenheimer Bodies Sickle Cells Target Cells Tear Drop Cells Ovalocytes Stomatocytes [place] Bodies Echinocytes Acanthocytes (Spur) Rouleaux RBC Agglutinates Schistocytes RBC Morph Comment Sezary Cell PT INR Sodium 139 Potassium 3.6 Chloride 108 H Carbon Dioxide 25 Anion Gap 6.0 BUN 4 L Creatinine 0.67 Est Cr Clr Drug Dosing 106.1 Est GFR ( Amer) 119.6 Est GFR (Non-Af Amer) 103.2 BUN/Creatinine Ratio 5.4 L Glucose 85 Calcium 6.6 L Phosphorus Magnesium Total Bilirubin 1.9 H Direct Bilirubin AST 135 H ALT 56 Alkaline Phosphatase 163 H Ammonia Troponin I Total Protein 7.1 Albumin 1.9 L Globulin 5.2 H Albumin/Globulin Ratio 0.4 L Lipase HCG, Qual Specimen Hemolysis Urine Color Dark Yellow Urine Appearance Turbid H (Clear) Urine pH 6.5 (4.5-7.5) Ur Specific [place] > 1.045 H (1.000-1.030) Urine Protein 1+ H (Negative) Urine Glucose (UA) Negative (Negative) Urine Ketones Negative (Negative) Urine Blood 2+ H (Negative) Urine Nitrite Negative (Negative) Urine Bilirubin Negative (Negative) Urine Urobilinogen Positive H (Negative) Ur Leukocyte Esterase 2+ H (Negative) Urine RBC 10-30 H (0-4) /hpf Urine WBC >30 H (0-5) /hpf Ur Epithelial Cells 10-20 H (0-5) /lpf Urine Bacteria 2+ H (Negative) Ethyl Alcohol mg/dL Blood Type Antibody Screen 06/29/18 Range/Units 05:24 WBC RBC Hgb Hct MCV MCH MCHC RDW Std Deviation RDW Coeff of Michelle Plt Count MPV Immature Gran % (Auto) Neut % (Auto) Lymph % (Auto) [place] % (Auto) Eos % (Auto) Baso % (Auto) Immature Gran # (Auto) Neut # (Auto) Lymph # (Auto) [place] # (Auto) Eos # (Auto) Baso # (Auto) Absolute Nucleated RBC Nucleated RBC % (auto) Neutrophils % (Manual) Band Neutrophils % Lymphocytes % (Manual) Prolymphocyte % Reactive Lymphs % (Man) Monocytes % (Manual) Eosinophils % (Manual) Basophils % (Manual) Metamyelocytes % (Man) Myelocytes % (Man) Promyelocytes % (Man) Blast Cells % (Manual) Plasma Cell % (Manual) Other Cells % Nucleated RBC % Neutrophils # (Manual) Band Neutrophils # Total Absolute Neuts Lymphocytes # (Manual) Prolymphocyte # Reactive Lymphs # Total Abs Lymphocytes Monocytes # (Manual) Eosinophils # (Manual) Basophils # (Manual) Metamyelocytes # (Man) Myelocytes # (Manual) Promyelocytes # (Man) Blast Cells # (Man) Plasma Cell # (Manual) Other Cells # Nucleated RBCs # (Man) Hypersegmented Neuts Hyposegmented Neuts Hypogranular Neuts Large Granular Lymphs # Lrg Granular Lymphs Hairy Cells Smudge Cells Toxic Granulation Toxic Vacuolation Dohle Bodies Bin Rods Platelet Estimate Hypogranular Platelets Clumped Platelets Giant Platelets Platelet Satelliting RBC Morphology Polychromasia Hypochromasia Poikilocytosis Basophilic Stippling Anisocytosis Microcytosis Macrocytosis Spherocytes Pappenheimer Bodies Sickle Cells Target Cells Tear Drop Cells Ovalocytes Stomatocytes [place] Bodies Echinocytes Acanthocytes (Spur) Rouleaux RBC Agglutinates Schistocytes RBC Morph Comment Sezary Cell PT 20.2 H INR 2.1 H Sodium Potassium Chloride Carbon Dioxide Anion Gap BUN Creatinine Est Cr Clr Drug Dosing Est GFR ( Amer) Est GFR (Non-Af Amer) BUN/Creatinine Ratio Glucose Calcium Phosphorus Magnesium Total Bilirubin Direct Bilirubin AST ALT Alkaline Phosphatase Ammonia Troponin I Total Protein Albumin Globulin Albumin/Globulin Ratio Lipase HCG, Qual Specimen Hemolysis Urine Color Urine Appearance (Clear) Urine pH (4.5-7.5) Ur Specific [place] (1.000-1.030) Urine Protein (Negative) Urine Glucose (UA) (Negative) Urine Ketones (Negative) Urine Blood (Negative) Urine Nitrite (Negative) Urine Bilirubin (Negative) Urine Urobilinogen (Negative) Ur Leukocyte Esterase (Negative) Urine RBC (0-4) /hpf Urine WBC (0-5) /hpf Ur Epithelial Cells (0-5) /lpf Urine Bacteria (Negative) Ethyl Alcohol mg/dL Blood Type Antibody Screen Imaging Data Radiologist's Impression: Radiology results as stated below per my review and the radiologist's interpretation: XR chest 1V portable CLINICAL HISTORY: abd pain pain COMPARISON STUDY: 06/17/2018 FINDINGS: The bones soft tissues and hemidiaphragms are normal. The cardiomediastinal silhouette is normal. The lungs are clear. The pulmonary vasculature is normal. IMPRESSION: Negative chest. The above report was generated using voice recognition software. It may contain grammatical, syntax or spelling errors. Electronically signed by: Silvino Alcazar M.D. 06/28/2018 8:[address] ABDOMEN & PELVIS With Contrast: Heterogeneous and fatty liver. Small amounts of fluid in the peritoneal cavity. Nonspecific edema about the gastroduodenal area. Could be related to the ascites/liver disease or from peptic ulcer disease/gastroduodenitis. Under distended and thickened bladder. The appendix is absent. Non-obstructive bowel gas pattern. Radiologist: Solo Brasher MD. ECG Data Attestation: I personally reviewed and interpreted this ECG as follows: Indication: abdominal pain Rate (beats per minute): 103 Rhythm: sinus tachycardia Findings: + other (normal axis); no acute ischemic change Blood Pressure Blood Pressure Findings: Normal blood pressure Blood Pressure Disposition: further management by hospitalist KAYLEIGH Conroy The patient is a 47-year-old woman with a past medical history of alcohol abuse, alcoholic cirrhosis, hep C who presents to the emergency department with report of hematemesis, upper abdominal pain, tremors per hpi. On arrival patient is uncomfortable, tremulous but no acute distress, afebrile with heart rate in the 100s but vital signs otherwise stable. The patient appears clinically dry. On exam the patient has generalized abdominal tenderness to light touch of the skin. WBC 3.1, H/H 9.5/28.2, platelets 42 all of which are similar to patient's prior range. Patient is intermittently neutropenic however today ANC is 1.41. INR 1.9 similar to patient's prior range of values. CT abdomen pelvis performed and per preliminary stat rad read appears similar to prior with cirrhosis and ascites. The patient was given 2 doses of Ativan for withdrawal symptoms. Given the patient's report of hematemesis in the setting of her risk factors for GI bleeding, associated nausea and upper abdominal pain, it is reasonable to admit the patient for further management of her withdrawal as well as likely alcoholic gastritis. Case was discussed with Dr. Reyes, [facility] hospitalist, who will evaluate the patient for admission. Impression & Plan Alcohol withdrawal, Alcoholic gastritis, Hypocalcemia, Hypomagnesemia Discharge Plan Visit Data *Final* Discharge Date/Time: 06/29/18 02:47 Chief Complaint: Abdominal Pain ED Provider: Carl Trevino Discharge Problem: Alcohol withdrawal, Alcoholic gastritis, Hypocalcemia, Hypomagnesemia Patient Disposition: Admitted As Inpatient Discharge Instructions Interventions: ED Discharge Assessment Last Done: 06/29/18 02:47 Discharge Problem: Alcohol withdrawal Qualifiers: Complication of substance-induced condition: with unspecified complication Qualified Code(s): F10.239 - Alcohol dependence with withdrawal, unspecified Alcoholic gastritis Qualifiers: Chronicity: unspecified Gastritis bleeding: presence of bleeding unspecified Qualified Code(s): K29.20 - Alcoholic gastritis without bleeding The scribe's documentation has been prepared under my direction and personally reviewed by me in its entirety. I confirm that the note above accurately reflects all work, treatment, procedures, and medical decision making performed by me.
[2018-06-29 01:19] LABS: Smudge Cells Present
--- NOTE | 2018-06-29 01:37 | History & Physical Report ---
Date of Service June 29, 2018 Assessment & Plan (1) Hematemesis with nausea: Ms. Barros is a 47 year old female with a history of ETOH abuse, ETOH cirrhosis, ETOH-related seizures, pancreatitis, and pancytopenia related to cirrhosis who presents to the emergency department due to abdominal pain and several episodes of hematemesis that occurred at approximately 8 o'clock this evening. ED course: Patient received 1 g of calcium gluconate, 10 mg of IV metoclopramide, 20 mg of IV famotidine, 2 mg of Ativan, 1 g of magnesium sulfate, 1 L normal saline bolus, 1 banana bag, 40 mg IV pantoprazole, and 4 mg IV Zofran. -admit to telemetry -no hematemesis since presentation to the hospital -CT abdomen and pelvis showed nonspecific edema around gastroduodenal area -> liver disease vs. PUD/gastroduodenitis -CT scan findings, hx of hematemesis and epigastric tenderness suggestive of PUD/gastritis -will keep NPO and consult GI for potential scope -stool hemeoccult ordered -Protonix drip initiated -Per review of records, the patient did have an EGD February 2018, which was negative for esophageal varices, and also showed a normal stomach, and normal duodenum. -IVF - D5 NS with 20 mEq at 100mls/hr. Alcohol Withdrawal -Patient received a banana bag in the emergency department, as well as 2 mg of IV Ativan -patient tremulous despite having an alcohol level of 272.4 -AWSS protocol and 3mg of valium IV ordered q4h prn withdrawal symptoms -Consider Librium taper once patient able to have PO -1mg IV folic acid and 100mg IV thiamine ordered QAM Liver Cirrhosis -Secondary to alcohol abuse and hepatitis C -Hold metoprolol tartrate as no evidence of esophageal varices and prior EGD, unsure as to why patient is on this -LFTs are similar to prior presentations, with a INR of 1.9, total bilirubin 1.7, AST of 141, ALT of 62 and alk phos of 175 -Maddrey's Score of 30.7 - no indication for glucocorticoid therapy Seizures -Patient has a history of seizures related to alcohol withdrawal, and reports having had seizures yesterday -Seizure precautions, continue to monitor Hypocalcemia -Received calcium gluconate in the emergency department for calcium level of 6.7 -Trend electrolytes Hypomagnesemia -Received 2 g of magnesium sulfate in the emergency department for magnesium of 1.6 -continue home magnesium oxide supplementation when pt no longer NPO Pancytopenia -labs similar to previous admissions -> WCC of 3.17, Hgb of 9.5, Platelet count of 42 -will recheck an H&H in 6 hours to ensure stability in setting of possible GI bleed -has had a bone marrow biopsy in 2014 which was unremarkable. Pancytopenia deemed to be secondary to nutritional insufficiency & liver failure Dysuria -pt reports dysuria and frequency, will order a UA to further investigate Oral Thrush -nystatin on backorder, will treat with clotrimazole x7 days Smoking Abuse -nicotine patch provided DVT Prophylaxis: contraindicated in setting of hematemesis, low platelets and INR of 1.9 Code status: FULL Disposition: admit to telemetry F/E/N: NPO. Hypocalcemia and Hypomagnesemia noted and supplemented. D5 NS with 20 mEq at 100mls/hr. (2) Alcohol withdrawal: (3) Hypocalcemia: (4) Hypomagnesemia: (5) Seizures: (6) Pancreatitis: (7) Neutropenia: (8) Thrombocytopenia: (9) Tobacco abuse: (10) Hepatitis C: (11) Oral thrush: (12) Dysuria: History of Present Illness Primary Care Provider: Marjorie Del Castillo Ms. Barros is a 47 year old female with a history of multiple admissions secondary to ETOH abuse, ETOH cirrhosis, ETOH-related seizures, pancreatitis, and pancytopenia related to cirrhosis who presents to the emergency department due to abdominal pain and several episodes of hematemesis that occurred at approximately 8 o'clock this evening. The patient states that she was dry heaving, and then started throwing up dark red blood, and that it also came out of her nose. She states that this happened approximately 4 times. She notes that she has a history of chronic abdominal pain, secondary to her liver cirrhosis and pancreatitis. She states the pain has been worse recently, prompting her to take Aleve, which she was reportedly told in the past not to take. She states that her stool is dark green in color, and denies diarrhea. She also endorses decreased appetite, nausea, fever, chills, and being delirious recently. She states that she had 3 seizures that occurred yesterday. She states that the seizures involved shaking of her whole body, losing control of urine, and feeling weak afterwards. She states that she has been trying to cut back on her alcohol consumption for the past 2 weeks, and generally drinks 46 beers a day, but states that the alcohol content of the beer she drinks are 8%. She states she no longer drinks hard liquor. She states her last drink was this morning, when she had 2 beers. She denies having any hallucinations recently, but states that she has been having nightmares, and has noticed tremors. Ms. Barros is a smoker. She states that she has cut back, and smokes approximately 1 pack/week, and has been smoking since age of 11. She denies use of any other recreational drugs. Allergies Allergy/AdvReac Type Severity Reaction Status Date / Time acetaminophen [From Tylenol] AdvReac Intermediate HX Verified 06/18/18 00:17 CIRRHOSIS NSAIDS (Non-Steroidal AdvReac Intermediate HX Verified 06/18/18 00:17 Anti-Inflamma CIRRHOSIS phenytoin AdvReac Intermediate LOSS OF Verified 06/18/18 00:17 EQUILIBRIUM Home Medications Home Medications Medication Instructions Recorded Confirmed Type folic acid 1 mg PO DAILY 05/24/18 06/28/18 History magnesium oxide 400 mg PO BID 05/24/18 06/28/18 History metoprolol tartrate 12.5 mg PO TID 06/06/18 06/28/18 History naproxen sodium [Aleve] 220 mg PO BID PRN 06/28/18 06/28/18 History ondansetron 4 mg PO Q8 PRN 06/28/18 06/28/18 History pedi multivit no.7-folic acid 1 tab PO DAILY 06/28/18 06/28/18 History [Flintstones Tab Chew] thiamine HCl (vitamin B1) [Vitamin 100 mg PO DAILY 06/28/18 06/28/18 History B-1] Past Med/Surg History Medical History Alcohol withdrawal Hypokalemia Seizures Pancreatitis (Chronic) Liver failure Schizoaffective disorder (Chronic) Arthritis Depression Hypertension Liver disease Thyroid disease Gastritis Liver cancer (Chronic) Alcoholism Acute recurrent pancreatitis (Acute Unknown) 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 hepatitis C (Chronic Unknown) Chronic pancreatitis (Chronic Unknown) Cirrhosis, alcoholic (Chronic) Chronic renal failure, stage 3 (moderate) (Chronic) Polysubstance abuse (Acute) Depression with suicidal ideation (Acute) TIA (transient ischemic attack) (Acute) Hypotension (Acute) Neutropenia (Acute) Pancytopenia (Acute) Anemia (Acute) Hypocalcemia (Acute) Hypernatremia (Acute) Alcohol withdrawal Cholecystectomy planned Cholecystectomy planned Hyponatremia Surgical History Cholecystectomy planned History of appendectomy Family History Mother Multiple sclerosis Father , age 52 Acute coronary occlusion without mycocardial infarction Social History Preferred Language: Burmese Care Mgr Required: No Beliefs That Will Affect Care: None marital status: Current Living Situation: Alone current occupational status: unemployed and disabled Other Information That Helps Us Care for You: No Feels Safe at Home: Yes Safety Concerns: Feels Safe At This Time Smoking Status: Current every day smoker Hx Alcohol Use: Yes Hx Substance Use: No Review of Systems Constitutional: + fever, + chills, + fatigue and + anorexia Respiratory: no cough and no wheezing Cardiovascular: no chest pain and no calf pain Gastrointestinal: + abdominal pain, + nausea, + vomiting, + hematemesis and + change in bowel habits Genitourinary (Female): + dysuria and + urinary urgency Neurologic: + tremor(s) and + seizure-like activity Physical Exam Vital Signs (Past 24 Hours): Last Vital Signs Temp 37 C 06/28/18 20:15 Pulse 98 H 06/29/18 00:35 Resp 18 06/29/18 00:35 BP 111/73 06/29/18 00:35 Pulse Ox 94 06/29/18 00:35 Constitutional: WD/WN, vitals as above + intoxicated appearing, + disheveled and cooperative ENMT: Mouth: + dry oral mucous membranes breath smells like alcohol. Tongue w/thick white coating Respiratory: normal respiratory effort, lungs clear to auscultation Cardiovascular: Rate/Rhythm: regular rhythm and + tachycardic Vessels: radial pulses present Extremities: no calf tenderness and no pedal edema Gastrointestinal (Abdomen): Percussion/Palpation: + abdomen tender (tender throughout abdomen, worst in epigastric region) and abdomen soft; no guarding and abdomen not rigid Skin: no rashes, warm and dry Neurologic: Motor/Sensory: + tremor (b/l arm tremor) AXO x 3. Answers questions appropriately but occasionally strays off into another conversation topic Results & Data Laboratory Results Laboratory Results - last 24 hr 06/28/18 06/28/18 06/28/18 21:18 21:18 21:18 WBC Cancelled RBC Cancelled Hgb Cancelled Hct Cancelled MCV Cancelled MCH Cancelled MCHC Cancelled RDW Std Deviation Cancelled RDW Coeff of Michelle Cancelled Plt Count Cancelled MPV Cancelled Immature Gran % (Auto) Cancelled Neut % (Auto) Cancelled Lymph % (Auto) Cancelled Sevier % (Auto) Cancelled Eos % (Auto) Cancelled Baso % (Auto) Cancelled Immature Gran # (Auto) Cancelled Neut # (Auto) Cancelled Lymph # (Auto) Cancelled Sevier # (Auto) Cancelled Eos # (Auto) Cancelled Baso # (Auto) Cancelled Absolute Nucleated RBC Cancelled Nucleated RBC % (auto) Cancelled Neutrophils % (Manual) Cancelled Band Neutrophils % Cancelled Lymphocytes % (Manual) Cancelled Prolymphocyte % Cancelled Reactive Lymphs % (Man) Cancelled Monocytes % (Manual) Cancelled Eosinophils % (Manual) Cancelled Basophils % (Manual) Cancelled Metamyelocytes % (Man) Cancelled Myelocytes % (Man) Cancelled Promyelocytes % (Man) Cancelled Blast Cells % (Manual) Cancelled Plasma Cell % (Manual) Cancelled Other Cells % Cancelled Nucleated RBC % Cancelled Neutrophils # (Manual) Cancelled Band Neutrophils # Cancelled Total Absolute Neuts Cancelled Lymphocytes # (Manual) Cancelled Prolymphocyte # Cancelled Reactive Lymphs # Cancelled Total Abs Lymphocytes Cancelled Monocytes # (Manual) Cancelled Eosinophils # (Manual) Cancelled Basophils # (Manual) Cancelled Metamyelocytes # (Man) Cancelled Myelocytes # (Manual) Cancelled Promyelocytes # (Man) Cancelled Blast Cells # (Man) Cancelled Plasma Cell # (Manual) Cancelled Other Cells # Cancelled Nucleated RBCs # (Man) Cancelled Hypersegmented Neuts Cancelled Hyposegmented Neuts Cancelled Hypogranular Neuts Cancelled Large Granular Lymphs Cancelled # Lrg Granular Lymphs Cancelled Hairy Cells Cancelled Smudge Cells Cancelled Toxic Granulation Cancelled Toxic Vacuolation Cancelled Dohle Bodies Cancelled Bin Rods Cancelled Platelet Estimate Cancelled Hypogranular Platelets Cancelled Clumped Platelets Cancelled Giant Platelets Cancelled Platelet Satelliting Cancelled RBC Morphology Cancelled Polychromasia Cancelled Hypochromasia Cancelled Poikilocytosis Cancelled Basophilic Stippling Cancelled Anisocytosis Cancelled Microcytosis Cancelled Macrocytosis Cancelled Spherocytes Cancelled Pappenheimer Bodies Cancelled Sickle Cells Cancelled Target Cells Cancelled Tear Drop Cells Cancelled Ovalocytes Cancelled Stomatocytes Cancelled [place] Bodies Cancelled Echinocytes Cancelled Acanthocytes (Spur) Cancelled Rouleaux Cancelled RBC Agglutinates Cancelled Schistocytes Cancelled RBC Morph Comment Cancelled Sezary Cell Cancelled PT Cancelled INR Cancelled Sodium Cancelled Potassium Cancelled Chloride Cancelled Carbon Dioxide Cancelled Anion Gap Cancelled BUN Cancelled Creatinine Cancelled Est Cr Clr Drug Dosing Cancelled Est GFR ( Amer) Cancelled Est GFR (Non-Af Amer) Cancelled BUN/Creatinine Ratio Cancelled Glucose Cancelled Calcium Cancelled Phosphorus Cancelled Magnesium Cancelled Total Bilirubin Cancelled Direct Bilirubin Cancelled AST Cancelled ALT Cancelled Alkaline Phosphatase Cancelled Ammonia Troponin I Cancelled Total Protein Cancelled Albumin Cancelled Globulin Cancelled Albumin/Globulin Ratio Cancelled Lipase Cancelled HCG, Qual Ethyl Alcohol mg/dL Blood Type Antibody Screen 06/28/18 06/28/18 06/28/18 21:18 21:18 21:18 WBC RBC Hgb Hct MCV MCH MCHC RDW Std Deviation RDW Coeff of Michelle Plt Count MPV Immature Gran % (Auto) Neut % (Auto) Lymph % (Auto) Sevier % (Auto) Eos % (Auto) Baso % (Auto) Immature Gran # (Auto) Neut # (Auto) Lymph # (Auto) Sevier # (Auto) Eos # (Auto) Baso # (Auto) Absolute Nucleated RBC Nucleated RBC % (auto) Neutrophils % (Manual) Band Neutrophils % Lymphocytes % (Manual) Prolymphocyte % Reactive Lymphs % (Man) Monocytes % (Manual) Eosinophils % (Manual) Basophils % (Manual) Metamyelocytes % (Man) Myelocytes % (Man) Promyelocytes % (Man) Blast Cells % (Manual) Plasma Cell % (Manual) Other Cells % Nucleated RBC % Neutrophils # (Manual) Band Neutrophils # Total Absolute Neuts Lymphocytes # (Manual) Prolymphocyte # Reactive Lymphs # Total Abs Lymphocytes Monocytes # (Manual) Eosinophils # (Manual) Basophils # (Manual) Metamyelocytes # (Man) Myelocytes # (Manual) Promyelocytes # (Man) Blast Cells # (Man) Plasma Cell # (Manual) Other Cells # Nucleated RBCs # (Man) Hypersegmented Neuts Hyposegmented Neuts Hypogranular Neuts Large Granular Lymphs # Lrg Granular Lymphs Hairy Cells Smudge Cells Toxic Granulation Toxic Vacuolation Dohle Bodies Bin Rods Platelet Estimate Hypogranular Platelets Clumped Platelets Giant Platelets Platelet Satelliting RBC Morphology Polychromasia Hypochromasia Poikilocytosis Basophilic Stippling Anisocytosis Microcytosis Macrocytosis Spherocytes Pappenheimer Bodies Sickle Cells Target Cells Tear Drop Cells Ovalocytes Stomatocytes Callahan-[place] Bodies Echinocytes Acanthocytes (Spur) Rouleaux RBC Agglutinates Schistocytes RBC Morph Comment Sezary Cell PT INR Sodium Potassium Chloride Carbon Dioxide Anion Gap BUN Creatinine Est Cr Clr Drug Dosing Est GFR ( Amer) Est GFR (Non-Af Amer) BUN/Creatinine Ratio Glucose Calcium Phosphorus Cancelled Magnesium Cancelled Total Bilirubin Direct Bilirubin AST ALT Alkaline Phosphatase Ammonia Troponin I Total Protein Albumin Globulin Albumin/Globulin Ratio Lipase HCG, Qual Cancelled Ethyl Alcohol mg/dL Cancelled Blood Type Antibody Screen 06/28/18 06/28/18 06/28/18 21:18 21:18 22:30 WBC RBC Hgb Hct MCV MCH MCHC RDW Std Deviation RDW Coeff of Michelle Plt Count MPV Immature Gran % (Auto) Neut % (Auto) Lymph % (Auto) Sevier % (Auto) Eos % (Auto) Baso % (Auto) Immature Gran # (Auto) Neut # (Auto) Lymph # (Auto) Sevier # (Auto) Eos # (Auto) Baso # (Auto) Absolute Nucleated RBC Nucleated RBC % (auto) Neutrophils % (Manual) Band Neutrophils % Lymphocytes % (Manual) Prolymphocyte % Reactive Lymphs % (Man) Monocytes % (Manual) Eosinophils % (Manual) Basophils % (Manual) Metamyelocytes % (Man) Myelocytes % (Man) Promyelocytes % (Man) Blast Cells % (Manual) Plasma Cell % (Manual) Other Cells % Nucleated RBC % Neutrophils # (Manual) Band Neutrophils # Total Absolute Neuts Lymphocytes # (Manual) Prolymphocyte # Reactive Lymphs # Total Abs Lymphocytes Monocytes # (Manual) Eosinophils # (Manual) Basophils # (Manual) Metamyelocytes # (Man) Myelocytes # (Manual) Promyelocytes # (Man) Blast Cells # (Man) Plasma Cell # (Manual) Other Cells # Nucleated RBCs # (Man) Hypersegmented Neuts Hyposegmented Neuts Hypogranular Neuts Large Granular Lymphs # Lrg Granular Lymphs Hairy Cells Smudge Cells Toxic Granulation Toxic Vacuolation Dohle Bodies Bin Rods Platelet Estimate Hypogranular Platelets Clumped Platelets Giant Platelets Platelet Satelliting RBC Morphology Polychromasia Hypochromasia Poikilocytosis Basophilic Stippling Anisocytosis Microcytosis Macrocytosis Spherocytes Pappenheimer Bodies Sickle Cells Target Cells Tear Drop Cells Ovalocytes Stomatocytes Callahan-[place] Bodies Echinocytes Acanthocytes (Spur) Rouleaux RBC Agglutinates Schistocytes RBC Morph Comment Sezary Cell PT INR Sodium Potassium Chloride Carbon Dioxide Anion Gap BUN Creatinine Est Cr Clr Drug Dosing Est GFR ( Amer) Est GFR (Non-Af Amer) BUN/Creatinine Ratio Glucose Calcium Phosphorus Magnesium Total Bilirubin Direct Bilirubin AST ALT Alkaline Phosphatase Ammonia Cancelled 40.3 H Troponin I Total Protein Albumin Globulin Albumin/Globulin Ratio Lipase HCG, Qual Ethyl Alcohol mg/dL Blood Type Cancelled Antibody Screen Cancelled 06/28/18 06/28/18 06/28/18 22:30 22:31 22:31 WBC 3.17 L RBC 2.91 L Hgb 9.5 L Hct 28.2 L MCV 96.9 MCH 32.6 MCHC 33.7 RDW Std Deviation 64.5 H RDW Coeff of Michelle 18.1 H Plt Count 42 L MPV 12.6 H Immature Gran % (Auto) Neut % (Auto) Lymph % (Auto) Sevier % (Auto) Eos % (Auto) Baso % (Auto) Immature Gran # (Auto) Neut # (Auto) Lymph # (Auto) Sevier # (Auto) Eos # (Auto) Baso # (Auto) Absolute Nucleated RBC Nucleated RBC % (auto) Neutrophils % (Manual) 44.6 Band Neutrophils % Lymphocytes % (Manual) 36.6 Prolymphocyte % Reactive Lymphs % (Man) 11.6 Monocytes % (Manual) 5.4 Eosinophils % (Manual) 0.9 Basophils % (Manual) Metamyelocytes % (Man) Myelocytes % (Man) Promyelocytes % (Man) Blast Cells % (Manual) 0.9 Plasma Cell % (Manual) Other Cells % Nucleated RBC % Neutrophils # (Manual) 1.41 Band Neutrophils # Total Absolute Neuts 1.41 Lymphocytes # (Manual) 1.16 L Prolymphocyte # Reactive Lymphs # 0.37 Total Abs Lymphocytes 1.53 Monocytes # (Manual) 0.17 Eosinophils # (Manual) 0.03 Basophils # (Manual) Metamyelocytes # (Man) Myelocytes # (Manual) Promyelocytes # (Man) Blast Cells # (Man) 0.03 H Plasma Cell # (Manual) Other Cells # Nucleated RBCs # (Man) Hypersegmented Neuts Hyposegmented Neuts Hypogranular Neuts Large Granular Lymphs # Lrg Granular Lymphs Hairy Cells Smudge Cells Present Toxic Granulation Toxic Vacuolation Dohle Bodies Bin Rods Platelet Estimate Hypogranular Platelets Clumped Platelets Giant Platelets 2+ Platelet Satelliting RBC Morphology Polychromasia Hypochromasia Poikilocytosis Basophilic Stippling Anisocytosis Microcytosis Macrocytosis Spherocytes Pappenheimer Bodies Sickle Cells Target Cells 1+ Tear Drop Cells Ovalocytes Stomatocytes Callahan-[place] Bodies Echinocytes Acanthocytes (Spur) Rouleaux RBC Agglutinates Schistocytes RBC Morph Comment Sezary Cell PT 18.3 H INR 1.9 H Sodium Potassium Chloride Carbon Dioxide Anion Gap BUN Creatinine Est Cr Clr Drug Dosing Est GFR ( Amer) Est GFR (Non-Af Amer) BUN/Creatinine Ratio Glucose Calcium Phosphorus Magnesium Total Bilirubin Direct Bilirubin AST ALT Alkaline Phosphatase Ammonia Troponin I Total Protein Albumin Globulin Albumin/Globulin Ratio Lipase HCG, Qual Ethyl Alcohol mg/dL 272.4 H Blood Type Antibody Screen 06/28/18 06/28/18 06/28/18 22:31 22:31 22:31 WBC RBC Hgb Hct MCV MCH MCHC RDW Std Deviation RDW Coeff of Michelle Plt Count MPV Immature Gran % (Auto) Neut % (Auto) Lymph % (Auto) Sevier % (Auto) Eos % (Auto) Baso % (Auto) Immature Gran # (Auto) Neut # (Auto) Lymph # (Auto) Sevier # (Auto) Eos # (Auto) Baso # (Auto) Absolute Nucleated RBC Nucleated RBC % (auto) Neutrophils % (Manual) Band Neutrophils % Lymphocytes % (Manual) Prolymphocyte % Reactive Lymphs % (Man) Monocytes % (Manual) Eosinophils % (Manual) Basophils % (Manual) Metamyelocytes % (Man) Myelocytes % (Man) Promyelocytes % (Man) Blast Cells % (Manual) Plasma Cell % (Manual) Other Cells % Nucleated RBC % Neutrophils # (Manual) Band Neutrophils # Total Absolute Neuts Lymphocytes # (Manual) Prolymphocyte # Reactive Lymphs # Total Abs Lymphocytes Monocytes # (Manual) Eosinophils # (Manual) Basophils # (Manual) Metamyelocytes # (Man) Myelocytes # (Manual) Promyelocytes # (Man) Blast Cells # (Man) Plasma Cell # (Manual) Other Cells # Nucleated RBCs # (Man) Hypersegmented Neuts Hyposegmented Neuts Hypogranular Neuts Large Granular Lymphs # Lrg Granular Lymphs Hairy Cells Smudge Cells Toxic Granulation Toxic Vacuolation Dohle Bodies Bin Rods Platelet Estimate Hypogranular Platelets Clumped Platelets Giant Platelets Platelet Satelliting RBC Morphology Polychromasia Hypochromasia Poikilocytosis Basophilic Stippling Anisocytosis Microcytosis Macrocytosis Spherocytes Pappenheimer Bodies Sickle Cells Target Cells Tear Drop Cells Ovalocytes Stomatocytes Callahan-[place] Bodies Echinocytes Acanthocytes (Spur) Rouleaux RBC Agglutinates Schistocytes RBC Morph Comment Sezary Cell PT INR Sodium 140 Potassium 3.7 Chloride 107 Carbon Dioxide 26 Anion Gap 7.0 BUN 4 L Creatinine 0.68 Est Cr Clr Drug Dosing 104.6 Est GFR ( Amer) 119.0 Est GFR (Non-Af Amer) 102.7 BUN/Creatinine Ratio 6.0 L Glucose 98 Calcium 6.7 L Phosphorus 3.2 Magnesium 1.6 L Total Bilirubin 1.7 H Direct Bilirubin 1.2 H AST 141 H ALT 62 Alkaline Phosphatase 175 H Ammonia Troponin I < 0.015 Total Protein 7.4 Albumin 2.0 L Globulin 5.4 H Albumin/Globulin Ratio 0.4 L Lipase 292 HCG, Qual Negative Ethyl Alcohol mg/dL Blood Type A Positive Antibody Screen NEGATIVE Supervising Physician Co-Signing Physician Notes 47 y/o F Hx ETOH abuse, hep C, cirrhosis, ETOH-related seizures, pancreatitis, chronic pancytopenia, presents due to abdominal pain and reported hematemesis. The pt admits to ongoing ETOH abuse and has a history of significant withdrawal symptoms. There is thickening of the gastroduodenal junction on imaging which may indicate PUD. She had an EGD in late 2018 which did not show varices OE: Ill-appearing, middle aged F, no distress S1,2 R CTAB Abdomen is tender in the upper quadrants No CCE No deficits P: IVF, NPO, PPi drip, trend HB, GI consult Placed on Diazepam, thiamine, folic, [id number] for maint. She has not recently displayed interest in alcohol cessation, although, is possible, she should likely proceed to a rehab/detox facility upon DC. (1) Alcohol withdrawal Complication of substance-induced condition: with unspecified complication Qualified Code(s): F10.239 - Alcohol dependence with withdrawal, unspecified (2) Neutropenia Neutropenia type: unspecified Qualified Code(s): D70.9 - Neutropenia, unspecified
[2018-06-29] MEDS ORDERED: DIAZEPAM 5 MG/ML INJ 10ML VIAL IV PRN (03:16)
[2018-06-29 04:51] LABS: Appearance Urine Turbid (Clear); Bilirubin Urine Negative (Negative); Blood Urine 2+ (Negative); Color Urine Dark Yellow; Glucose Urine UA Negative (Negative); Ketones Urine Negative (Negative); Leukocyte Esterase Urine 2+ (Negative); Nitrite Urine Negative (Negative); Protein Urine 1+ (Negative); Specific Gravity Urine > 1.045 (1.000-1.030); Urobilinogen Urine Positive (Negative); pH Urine 6.5 (4.5-7.5)
[2018-06-29 04:57] LABS: Hematocrit (blood only) 27.6 % (37-47); Hemoglobin 9.3 g/dL (12.0-16.0)
[2018-06-29 05:17] LABS: Albumin Globulin Ratio 0.4 (0.9-2); Albumin Level 1.9 gm/dl (3.4-5.0); BUN Creatinine Ratio 5.4 (10-20); Bilirubin,Total 1.9 mg/dl (0.2-1); Calcium 6.6 mg/dl (8.5-10.1); Creatinine Clr Calc Pharmacy 106.1 ml/min; Est GFR (African American) 119.6; Est GFR (Non-African American) 103.2; Globulin 5.2 gm/dl (2.5-4.0); Potassium 3.6 mmol/L (3.5-5.1); Total Protein 7.1 gm/dl (6.4-8.2)
[2018-06-29] MEDS: PANTOprazole 40 MG in DEXTROSE 5% 100 ML IV SCH ×4 (05:18→19:28)
[2018-06-29] MEDS: D5NSS + 20MEQ KCL 20 MEQ/1,000 ML BAG IV SCH ×2 (05:19→16:03)
[2018-06-29 05:59] LABS: INR 2.1 (0.9-1.1); Prothrombin Time 20.2 Seconds (9.0-12.0)
[2018-06-29 06:11] LABS: WBC Urine >30 /hpf (0-5)
[2018-06-29 06:12] LABS: Bacteria Urine 2+ (Negative)
[2018-06-29] MEDS: THIAMINE HCL 100 MG in SYRINGE 9 ML IV SCH (07:33)
[2018-06-29] MEDS: CLOTRIMAZOLE 10 MG TROCHE BUCCAL SCH ×4 (07:33→20:03)
[2018-06-29] MEDS: FOLIC ACID 1 MG in SYRINGE 9.8 ML IV SCH (07:33)
--- NOTE | 2018-06-29 07:44 | Family Medicine Progress Note ---
Date of Service June 29, 2018 Assessment & Plan (1) Hematemesis with nausea: Ms. Barros is a 47 year old female with a history of ETOH abuse, ETOH cirrhosis, ETOH-related seizures, pancreatitis, and pancytopenia related to cirrhosis who presents to the emergency department due to abdominal pain and several episodes of hematemesis that occurred at approximately 8 o'clock this evening. ED course: Patient received 1 g of calcium gluconate, 10 mg of IV metoclopramide, 20 mg of IV famotidine, 2 mg of Ativan, 1 g of magnesium sulfate, 1 L normal saline bolus, 1 banana bag, 40 mg IV pantoprazole, and 4 mg IV Zofran. -admit to telemetry -no hematemesis since presentation to the hospital -CT abdomen and pelvis showed nonspecific edema around gastroduodenal area -> liver disease vs. PUD/gastroduodenitis -CT scan findings, hx of hematemesis and epigastric tenderness suggestive of PUD/gastritis -Cx'd GI -Pt must stop drinking -Continue PPI drip. When withdrawal symptoms resolved consider EGD because of ETOH and ongoing naprosyn use -anemia may be 2/2 to hematemesis -Per review of records, the patient did have an EGD February 2018, which was negative for esophageal varices, and also showed a normal stomach, and normal duodenum. -IVF - D5 NS with 20 mEq at 100mls/hr. -Replete e- as indicated Alcohol Withdrawal -Patient received a banana bag in the emergency department, as well as 2 mg of IV Ativan -patient tremulous despite having an alcohol level of 272.4 -AWSS protocol and 3mg of valium IV ordered q4h prn withdrawal symptoms -Consider Librium taper once patient able to have PO -1mg IV folic acid and 100mg IV thiamine ordered QAM Liver Cirrhosis -Secondary to alcohol abuse and hepatitis C -Hold metoprolol tartrate as no evidence of esophageal varices and prior EGD, unsure as to why patient is on this -LFTs are similar to prior presentations, with a INR of 1.9, total bilirubin 1.7, AST of 141, ALT of 62 and alk phos of 175 -Maddrey's Score of 42 - no indication for glucocorticoid therapy Seizures -Patient has a history of seizures related to alcohol withdrawal, and reports having had seizures yesterday -Seizure precautions, continue to monitor Hypocalcemia -Received calcium gluconate in the emergency department for calcium level of 6.7, today 6.6 corrected is 8.3 -Trend electrolytes Hypomagnesemia -Given 4 g of magnesium sulfate am labs showed 1.6 -continue home magnesium oxide supplementation when pt no longer NPO Pancytopenia -labs similar to previous admissions -> WCC of 3.17, Hgb of 9.5, Platelet count of 42 -will recheck an H&H in 6 hours to ensure stability in setting of possible GI bleed hgb 9.3 -has had a bone marrow biopsy in 2014 which was unremarkable. Pancytopenia deemed to be secondary to nutritional insufficiency & liver failure Dysuria -U/A suggests infection but not clean catch will start CTX pending cx results -F/u culture results Oral Thrush -nystatin on backorder, will treat with clotrimazole x7 days Smoking Abuse -nicotine patch provided DVT Prophylaxis: contraindicated in setting of hematemesis, low platelets and INR of 1.9 Code status: FULL Disposition: admit to telemetry F/E/N: Regular diet monitor e- (2) Alcohol withdrawal: (3) Hypocalcemia: (4) Hypomagnesemia: (5) Seizures: (6) Pancreatitis: (7) Neutropenia: (8) Thrombocytopenia: (9) Tobacco abuse: (10) Hepatitis C: (11) Oral thrush: (12) Dysuria: Subjective Pt sleeping in bed this am. Pt reported no acute events overnight. States she had been decreasing her drinking recently yesterday she had 2 beers but could not keep them down. HX positive for inpt DT treatment. Currently she notes tremors. Notes abdominal discomfort but nor further hematemesis. Denies recent hx of fevers, chills, congestion, aches and pains or other si/sx of acute process. Pt is unsure if she wishes to proced to rehb on discharge. She will let us know in the a.m. Voiding, stooling, sleeping appropriately. Physical Exam Vital Signs (Past 24 Hours): Last Vital Signs Temp 37.0 C 06/29/18 07:18 Pulse 99 H 06/29/18 07:18 Resp 19 06/29/18 07:18 BP 109/72 06/29/18 07:18 Pulse Ox 96 06/29/18 07:18 Constitutional: WD/WN, vitals as above + disheveled and cooperative ENMT: Mouth: + dry oral mucous membranes Respiratory: normal respiratory effort, lungs clear to auscultation Cardiovascular: Rate/Rhythm: regular rhythm and + tachycardic Vessels: radial pulses present Extremities: no calf tenderness and no pedal edema Gastrointestinal (Abdomen): Percussion/Palpation: + abdomen tender (tender throughout abdomen, worst in epigastric region) and abdomen soft; no guarding and abdomen not rigid Skin: no rashes, warm and dry Neurologic: Motor/Sensory: + tremor (b/l arm tremor) Results & Data Laboratory Results 06/29/18 06/29/18 06/29/18 Range/Units 05:24 04:40 04:28 WBC RBC Hgb Hct MCV MCH MCHC RDW Std Deviation RDW Coeff of Michelle Plt Count MPV Immature Gran % (Auto) Neut % (Auto) Lymph % (Auto) [place] % (Auto) Eos % (Auto) Baso % (Auto) Immature Gran # (Auto) Neut # (Auto) Lymph # (Auto) [place] # (Auto) Eos # (Auto) Baso # (Auto) Absolute Nucleated RBC Nucleated RBC % (auto) Neutrophils % (Manual) Band Neutrophils % Lymphocytes % (Manual) Prolymphocyte % Reactive Lymphs % (Man) Monocytes % (Manual) Eosinophils % (Manual) Basophils % (Manual) Metamyelocytes % (Man) Myelocytes % (Man) Promyelocytes % (Man) Blast Cells % (Manual) Plasma Cell % (Manual) Other Cells % Nucleated RBC % Neutrophils # (Manual) Band Neutrophils # Total Absolute Neuts Lymphocytes # (Manual) Prolymphocyte # Reactive Lymphs # Total Abs Lymphocytes Monocytes # (Manual) Eosinophils # (Manual) Basophils # (Manual) Metamyelocytes # (Man) Myelocytes # (Manual) Promyelocytes # (Man) Blast Cells # (Man) Plasma Cell # (Manual) Other Cells # Nucleated RBCs # (Man) Hypersegmented Neuts Hyposegmented Neuts Hypogranular Neuts Large Granular Lymphs # Lrg Granular Lymphs Hairy Cells Smudge Cells Blood Smear Review Toxic Granulation Toxic Vacuolation Dohle Bodies Bin Rods Platelet Estimate Hypogranular Platelets Clumped Platelets Giant Platelets Platelet Satelliting RBC Morphology Polychromasia Hypochromasia Poikilocytosis Basophilic Stippling Anisocytosis Microcytosis Macrocytosis Spherocytes Pappenheimer Bodies Sickle Cells Target Cells Tear Drop Cells Ovalocytes Stomatocytes [place] Bodies Echinocytes Acanthocytes (Spur) Rouleaux RBC Agglutinates Schistocytes RBC Morph Comment Sezary Cell PT 20.2 H INR 2.1 H Sodium 139 Potassium 3.6 Chloride 108 H Carbon Dioxide 25 Anion Gap 6.0 BUN 4 L Creatinine 0.67 Est Cr Clr Drug Dosing 106.1 Est GFR ( Amer) 119.6 Est GFR (Non-Af Amer) 103.2 BUN/Creatinine Ratio 5.4 L Glucose 85 Calcium 6.6 L Phosphorus Magnesium Total Bilirubin 1.9 H Direct Bilirubin AST 135 H ALT 56 Alkaline Phosphatase 163 H Ammonia Troponin I Total Protein 7.1 Albumin 1.9 L Globulin 5.2 H Albumin/Globulin Ratio 0.4 L Lipase HCG, Qual Specimen Hemolysis Urine Color Dark Yellow Urine Appearance Turbid H (Clear) Urine pH 6.5 (4.5-7.5) Ur Specific [place] > 1.045 H (1.000-1.030) Urine Protein 1+ H (Negative) Urine Glucose (UA) Negative (Negative) Urine Ketones Negative (Negative) Urine Blood 2+ H (Negative) Urine Nitrite Negative (Negative) Urine Bilirubin Negative (Negative) Urine Urobilinogen Positive H (Negative) Ur Leukocyte Esterase 2+ H (Negative) Urine RBC 10-30 H (0-4) /hpf Urine WBC >30 H (0-5) /hpf Ur Epithelial Cells 10-20 H (0-5) /lpf Urine Bacteria 2+ H (Negative) Ethyl Alcohol mg/dL Blood Type Antibody Screen 06/29/18 06/28/18 06/28/18 Range/Units 04:28 22:31 22:31 WBC RBC Hgb 9.3 L Hct 27.6 L MCV MCH MCHC RDW Std Deviation RDW Coeff of Michelle Plt Count MPV Immature Gran % (Auto) Neut % (Auto) Lymph % (Auto) [place] % (Auto) Eos % (Auto) Baso % (Auto) Immature Gran # (Auto) Neut # (Auto) Lymph # (Auto) [place] # (Auto) Eos # (Auto) Baso # (Auto) Absolute Nucleated RBC Nucleated RBC % (auto) Neutrophils % (Manual) Band Neutrophils % Lymphocytes % (Manual) Prolymphocyte % Reactive Lymphs % (Man) Monocytes % (Manual) Eosinophils % (Manual) Basophils % (Manual) Metamyelocytes % (Man) Myelocytes % (Man) Promyelocytes % (Man) Blast Cells % (Manual) Plasma Cell % (Manual) Other Cells % Nucleated RBC % Neutrophils # (Manual) Band Neutrophils # Total Absolute Neuts Lymphocytes # (Manual) Prolymphocyte # Reactive Lymphs # Total Abs Lymphocytes Monocytes # (Manual) Eosinophils # (Manual) Basophils # (Manual) Metamyelocytes # (Man) Myelocytes # (Manual) Promyelocytes # (Man) Blast Cells # (Man) Plasma Cell # (Manual) Other Cells # Nucleated RBCs # (Man) Hypersegmented Neuts Hyposegmented Neuts Hypogranular Neuts Large Granular Lymphs # Lrg Granular Lymphs Hairy Cells Smudge Cells Blood Smear Review Toxic Granulation Toxic Vacuolation Dohle Bodies Bin Rods Platelet Estimate Hypogranular Platelets Clumped Platelets Giant Platelets Platelet Satelliting RBC Morphology Polychromasia Hypochromasia Poikilocytosis Basophilic Stippling Anisocytosis Microcytosis Macrocytosis Spherocytes Pappenheimer Bodies Sickle Cells Target Cells Tear Drop Cells Ovalocytes Stomatocytes [place] Bodies Echinocytes Acanthocytes (Spur) Rouleaux RBC Agglutinates Schistocytes RBC Morph Comment Sezary Cell PT INR Sodium Potassium Chloride Carbon Dioxide Anion Gap BUN Creatinine Est Cr Clr Drug Dosing Est GFR ( Amer) Est GFR (Non-Af Amer) BUN/Creatinine Ratio Glucose Calcium Phosphorus Magnesium Total Bilirubin Direct Bilirubin AST ALT Alkaline Phosphatase Ammonia Troponin I Total Protein Albumin Globulin Albumin/Globulin Ratio Lipase HCG, Qual Negative Specimen Hemolysis Urine Color Urine Appearance (Clear) Urine pH (4.5-7.5) Ur Specific [place] (1.000-1.030) Urine Protein (Negative) Urine Glucose (UA) (Negative) Urine Ketones (Negative) Urine Blood (Negative) Urine Nitrite (Negative) Urine Bilirubin (Negative) Urine Urobilinogen (Negative) Ur Leukocyte Esterase (Negative) Urine RBC (0-4) /hpf Urine WBC (0-5) /hpf Ur Epithelial Cells (0-5) /lpf Urine Bacteria (Negative) Ethyl Alcohol mg/dL Blood Type A Positive Antibody Screen NEGATIVE 06/28/18 06/28/18 06/28/18 Range/Units 22:31 22:31 22:31 WBC 3.17 L RBC 2.91 L Hgb 9.5 L Hct 28.2 L MCV 96.9 MCH 32.6 MCHC 33.7 RDW Std Deviation 64.5 H RDW Coeff of Michelle 18.1 H Plt Count 42 L MPV 12.6 H Immature Gran % (Auto) Neut % (Auto) Lymph % (Auto) [place] % (Auto) Eos % (Auto) Baso % (Auto) Immature Gran # (Auto) Neut # (Auto) Lymph # (Auto) [place] # (Auto) Eos # (Auto) Baso # (Auto) Absolute Nucleated RBC Nucleated RBC % (auto) Neutrophils % (Manual) 44.6 Band Neutrophils % Lymphocytes % (Manual) 36.6 Prolymphocyte % Reactive Lymphs % (Man) 11.6 Monocytes % (Manual) 5.4 Eosinophils % (Manual) 0.9 Basophils % (Manual) Metamyelocytes % (Man) Myelocytes % (Man) Promyelocytes % (Man) Blast Cells % (Manual) 0.9 Plasma Cell % (Manual) Other Cells % Nucleated RBC % Neutrophils # (Manual) 1.41 Band Neutrophils # Total Absolute Neuts 1.41 Lymphocytes # (Manual) 1.16 L Prolymphocyte # Reactive Lymphs # 0.37 Total Abs Lymphocytes 1.53 Monocytes # (Manual) 0.17 Eosinophils # (Manual) 0.03 Basophils # (Manual) Metamyelocytes # (Man) Myelocytes # (Manual) Promyelocytes # (Man) Blast Cells # (Man) 0.03 H Plasma Cell # (Manual) Other Cells # Nucleated RBCs # (Man) Hypersegmented Neuts Hyposegmented Neuts Hypogranular Neuts Large Granular Lymphs # Lrg Granular Lymphs Hairy Cells Smudge Cells Present Blood Smear Review Pending Toxic Granulation Toxic Vacuolation Dohle Bodies Bin Rods Platelet Estimate Hypogranular Platelets Clumped Platelets Giant Platelets 2+ Platelet Satelliting RBC Morphology Polychromasia Hypochromasia Poikilocytosis Basophilic Stippling Anisocytosis Microcytosis Macrocytosis Spherocytes Pappenheimer Bodies Sickle Cells Target Cells 1+ Tear Drop Cells Ovalocytes Stomatocytes [place] Bodies Echinocytes Acanthocytes (Spur) Rouleaux RBC Agglutinates Schistocytes RBC Morph Comment Sezary Cell PT 18.3 H INR 1.9 H Sodium 140 Potassium 3.7 Chloride 107 Carbon Dioxide 26 Anion Gap 7.0 BUN 4 L Creatinine 0.68 Est Cr Clr Drug Dosing 104.6 Est GFR ( Amer) 119.0 Est GFR (Non-Af Amer) 102.7 BUN/Creatinine Ratio 6.0 L Glucose 98 Calcium 6.7 L Phosphorus 3.2 Magnesium 1.6 L Total Bilirubin 1.7 H Direct Bilirubin 1.2 H AST 141 H ALT 62 Alkaline Phosphatase 175 H Ammonia Troponin I < 0.015 Total Protein 7.4 Albumin 2.0 L Globulin 5.4 H Albumin/Globulin Ratio 0.4 L Lipase 292 HCG, Qual Specimen Hemolysis Urine Color Urine Appearance (Clear) Urine pH (4.5-7.5) Ur Specific [place] (1.000-1.030) Urine Protein (Negative) Urine Glucose (UA) (Negative) Urine Ketones (Negative) Urine Blood (Negative) Urine Nitrite (Negative) Urine Bilirubin (Negative) Urine Urobilinogen (Negative) Ur Leukocyte Esterase (Negative) Urine RBC (0-4) /hpf Urine WBC (0-5) /hpf Ur Epithelial Cells (0-5) /lpf Urine Bacteria (Negative) Ethyl Alcohol mg/dL Blood Type Antibody Screen 06/28/18 06/28/18 06/28/18 Range/Units 22:30 22:30 21:18 WBC RBC Hgb Hct MCV MCH MCHC RDW Std Deviation RDW Coeff of Michelle Plt Count MPV Immature Gran % (Auto) Neut % (Auto) Lymph % (Auto) [place] % (Auto) Eos % (Auto) Baso % (Auto) Immature Gran # (Auto) Neut # (Auto) Lymph # (Auto) [place] # (Auto) Eos # (Auto) Baso # (Auto) Absolute Nucleated RBC Nucleated RBC % (auto) Neutrophils % (Manual) Band Neutrophils % Lymphocytes % (Manual) Prolymphocyte % Reactive Lymphs % (Man) Monocytes % (Manual) Eosinophils % (Manual) Basophils % (Manual) Metamyelocytes % (Man) Myelocytes % (Man) Promyelocytes % (Man) Blast Cells % (Manual) Plasma Cell % (Manual) Other Cells % Nucleated RBC % Neutrophils # (Manual) Band Neutrophils # Total Absolute Neuts Lymphocytes # (Manual) Prolymphocyte # Reactive Lymphs # Total Abs Lymphocytes Monocytes # (Manual) Eosinophils # (Manual) Basophils # (Manual) Metamyelocytes # (Man) Myelocytes # (Manual) Promyelocytes # (Man) Blast Cells # (Man) Plasma Cell # (Manual) Other Cells # Nucleated RBCs # (Man) Hypersegmented Neuts Hyposegmented Neuts Hypogranular Neuts Large Granular Lymphs # Lrg Granular Lymphs Hairy Cells Smudge Cells Blood Smear Review Toxic Granulation Toxic Vacuolation Dohle Bodies Bin Rods Platelet Estimate Hypogranular Platelets Clumped Platelets Giant Platelets Platelet Satelliting RBC Morphology Polychromasia Hypochromasia Poikilocytosis Basophilic Stippling Anisocytosis Microcytosis Macrocytosis Spherocytes Pappenheimer Bodies Sickle Cells Target Cells Tear Drop Cells Ovalocytes Stomatocytes [place] Bodies Echinocytes Acanthocytes (Spur) Rouleaux RBC Agglutinates Schistocytes RBC Morph Comment Sezary Cell PT INR Sodium Potassium Chloride Carbon Dioxide Anion Gap BUN Creatinine Est Cr Clr Drug Dosing Est GFR ( Amer) Est GFR (Non-Af Amer) BUN/Creatinine Ratio Glucose Calcium Phosphorus Magnesium Total Bilirubin Direct Bilirubin AST ALT Alkaline Phosphatase Ammonia 40.3 H Troponin I Total Protein Albumin Globulin Albumin/Globulin Ratio Lipase HCG, Qual Specimen Hemolysis Urine Color Urine Appearance (Clear) Urine pH (4.5-7.5) Ur Specific [place] (1.000-1.030) Urine Protein (Negative) Urine Glucose (UA) (Negative) Urine Ketones (Negative) Urine Blood (Negative) Urine Nitrite (Negative) Urine Bilirubin (Negative) Urine Urobilinogen (Negative) Ur Leukocyte Esterase (Negative) Urine RBC (0-4) /hpf Urine WBC (0-5) /hpf Ur Epithelial Cells (0-5) /lpf Urine Bacteria (Negative) Ethyl Alcohol mg/dL 272.4 H Blood Type Cancelled Antibody Screen Cancelled 06/28/18 06/28/18 06/28/18 Range/Units 21:18 21:18 21:18 WBC RBC Hgb Hct MCV MCH MCHC RDW Std Deviation RDW Coeff of Michelle Plt Count MPV Immature Gran % (Auto) Neut % (Auto) Lymph % (Auto) [place] % (Auto) Eos % (Auto) Baso % (Auto) Immature Gran # (Auto) Neut # (Auto) Lymph # (Auto) [place] # (Auto) Eos # (Auto) Baso # (Auto) Absolute Nucleated RBC Nucleated RBC % (auto) Neutrophils % (Manual) Band Neutrophils % Lymphocytes % (Manual) Prolymphocyte % Reactive Lymphs % (Man) Monocytes % (Manual) Eosinophils % (Manual) Basophils % (Manual) Metamyelocytes % (Man) Myelocytes % (Man) Promyelocytes % (Man) Blast Cells % (Manual) Plasma Cell % (Manual) Other Cells % Nucleated RBC % Neutrophils # (Manual) Band Neutrophils # Total Absolute Neuts Lymphocytes # (Manual) Prolymphocyte # Reactive Lymphs # Total Abs Lymphocytes Monocytes # (Manual) Eosinophils # (Manual) Basophils # (Manual) Metamyelocytes # (Man) Myelocytes # (Manual) Promyelocytes # (Man) Blast Cells # (Man) Plasma Cell # (Manual) Other Cells # Nucleated RBCs # (Man) Hypersegmented Neuts Hyposegmented Neuts Hypogranular Neuts Large Granular Lymphs # Lrg Granular Lymphs Hairy Cells Smudge Cells Blood Smear Review Toxic Granulation Toxic Vacuolation Dohle Bodies Bin Rods Platelet Estimate Hypogranular Platelets Clumped Platelets Giant Platelets Platelet Satelliting RBC Morphology Polychromasia Hypochromasia Poikilocytosis Basophilic Stippling Anisocytosis Microcytosis Macrocytosis Spherocytes Pappenheimer Bodies Sickle Cells Target Cells Tear Drop Cells Ovalocytes Stomatocytes [place] Bodies Echinocytes Acanthocytes (Spur) Rouleaux RBC Agglutinates Schistocytes RBC Morph Comment Sezary Cell PT INR Sodium Potassium Chloride Carbon Dioxide Anion Gap BUN Creatinine Est Cr Clr Drug Dosing Est GFR ( Amer) Est GFR (Non-Af Amer) BUN/Creatinine Ratio Glucose Calcium Phosphorus Cancelled Magnesium Cancelled Total Bilirubin Direct Bilirubin AST ALT Alkaline Phosphatase Ammonia Cancelled Troponin I Total Protein Albumin Globulin Albumin/Globulin Ratio Lipase HCG, Qual Specimen Hemolysis Urine Color Urine Appearance (Clear) Urine pH (4.5-7.5) Ur Specific [place] (1.000-1.030) Urine Protein (Negative) Urine Glucose (UA) (Negative) Urine Ketones (Negative) Urine Blood (Negative) Urine Nitrite (Negative) Urine Bilirubin (Negative) Urine Urobilinogen (Negative) Ur Leukocyte Esterase (Negative) Urine RBC (0-4) /hpf Urine WBC (0-5) /hpf Ur Epithelial Cells (0-5) /lpf Urine Bacteria (Negative) Ethyl Alcohol mg/dL Cancelled Blood Type Antibody Screen 06/28/18 06/28/18 06/28/18 Range/Units 21:18 21:18 21:18 WBC RBC Hgb Hct MCV MCH MCHC RDW Std Deviation RDW Coeff of Michelle Plt Count MPV Immature Gran % (Auto) Neut % (Auto) Lymph % (Auto) [place] % (Auto) Eos % (Auto) Baso % (Auto) Immature Gran # (Auto) Neut # (Auto) Lymph # (Auto) [place] # (Auto) Eos # (Auto) Baso # (Auto) Absolute Nucleated RBC Nucleated RBC % (auto) Neutrophils % (Manual) Band Neutrophils % Lymphocytes % (Manual) Prolymphocyte % Reactive Lymphs % (Man) Monocytes % (Manual) Eosinophils % (Manual) Basophils % (Manual) Metamyelocytes % (Man) Myelocytes % (Man) Promyelocytes % (Man) Blast Cells % (Manual) Plasma Cell % (Manual) Other Cells % Nucleated RBC % Neutrophils # (Manual) Band Neutrophils # Total Absolute Neuts Lymphocytes # (Manual) Prolymphocyte # Reactive Lymphs # Total Abs Lymphocytes Monocytes # (Manual) Eosinophils # (Manual) Basophils # (Manual) Metamyelocytes # (Man) Myelocytes # (Manual) Promyelocytes # (Man) Blast Cells # (Man) Plasma Cell # (Manual) Other Cells # Nucleated RBCs # (Man) Hypersegmented Neuts Hyposegmented Neuts Hypogranular Neuts Large Granular Lymphs # Lrg Granular Lymphs Hairy Cells Smudge Cells Blood Smear Review Toxic Granulation Toxic Vacuolation Dohle Bodies Bin Rods Platelet Estimate Hypogranular Platelets Clumped Platelets Giant Platelets Platelet Satelliting RBC Morphology Polychromasia Hypochromasia Poikilocytosis Basophilic Stippling Anisocytosis Microcytosis Macrocytosis Spherocytes Pappenheimer Bodies Sickle Cells Target Cells Tear Drop Cells Ovalocytes Stomatocytes [place] Bodies Echinocytes Acanthocytes (Spur) Rouleaux RBC Agglutinates Schistocytes RBC Morph Comment Sezary Cell PT Cancelled INR Cancelled Sodium Cancelled Potassium Cancelled Chloride Cancelled Carbon Dioxide Cancelled Anion Gap Cancelled BUN Cancelled Creatinine Cancelled Est Cr Clr Drug Dosing Cancelled Est GFR ( Amer) Cancelled Est GFR (Non-Af Amer) Cancelled BUN/Creatinine Ratio Cancelled Glucose Cancelled Calcium Cancelled Phosphorus Cancelled Magnesium Cancelled Total Bilirubin Cancelled Direct Bilirubin Cancelled AST Cancelled ALT Cancelled Alkaline Phosphatase Cancelled Ammonia Troponin I Cancelled Total Protein Cancelled Albumin Cancelled Globulin Cancelled Albumin/Globulin Ratio Cancelled Lipase Cancelled HCG, Qual Cancelled Specimen Hemolysis Urine Color Urine Appearance (Clear) Urine pH (4.5-7.5) Ur Specific [place] (1.000-1.030) Urine Protein (Negative) Urine Glucose (UA) (Negative) Urine Ketones (Negative) Urine Blood (Negative) Urine Nitrite (Negative) Urine Bilirubin (Negative) Urine Urobilinogen (Negative) Ur Leukocyte Esterase (Negative) Urine RBC (0-4) /hpf Urine WBC (0-5) /hpf Ur Epithelial Cells (0-5) /lpf Urine Bacteria (Negative) Ethyl Alcohol mg/dL Blood Type Antibody Screen 06/28/18 Range/Units 21:18 WBC Cancelled RBC Cancelled Hgb Cancelled Hct Cancelled MCV Cancelled MCH Cancelled MCHC Cancelled RDW Std Deviation Cancelled RDW Coeff of Michelle Cancelled Plt Count Cancelled MPV Cancelled Immature Gran % (Auto) Cancelled Neut % (Auto) Cancelled Lymph % (Auto) Cancelled [place] % (Auto) Cancelled Eos % (Auto) Cancelled Baso % (Auto) Cancelled Immature Gran # (Auto) Cancelled Neut # (Auto) Cancelled Lymph # (Auto) Cancelled [place] # (Auto) Cancelled Eos # (Auto) Cancelled Baso # (Auto) Cancelled Absolute Nucleated RBC Cancelled Nucleated RBC % (auto) Cancelled Neutrophils % (Manual) Cancelled Band Neutrophils % Cancelled Lymphocytes % (Manual) Cancelled Prolymphocyte % Cancelled Reactive Lymphs % (Man) Cancelled Monocytes % (Manual) Cancelled Eosinophils % (Manual) Cancelled Basophils % (Manual) Cancelled Metamyelocytes % (Man) Cancelled Myelocytes % (Man) Cancelled Promyelocytes % (Man) Cancelled Blast Cells % (Manual) Cancelled Plasma Cell % (Manual) Cancelled Other Cells % Cancelled Nucleated RBC % Cancelled Neutrophils # (Manual) Cancelled Band Neutrophils # Cancelled Total Absolute Neuts Cancelled Lymphocytes # (Manual) Cancelled Prolymphocyte # Cancelled Reactive Lymphs # Cancelled Total Abs Lymphocytes Cancelled Monocytes # (Manual) Cancelled Eosinophils # (Manual) Cancelled Basophils # (Manual) Cancelled Metamyelocytes # (Man) Cancelled Myelocytes # (Manual) Cancelled Promyelocytes # (Man) Cancelled Blast Cells # (Man) Cancelled Plasma Cell # (Manual) Cancelled Other Cells # Cancelled Nucleated RBCs # (Man) Cancelled Hypersegmented Neuts Cancelled Hyposegmented Neuts Cancelled Hypogranular Neuts Cancelled Large Granular Lymphs Cancelled # Lrg Granular Lymphs Cancelled Hairy Cells Cancelled Smudge Cells Cancelled Blood Smear Review Toxic Granulation Cancelled Toxic Vacuolation Cancelled Dohle Bodies Cancelled Bin Rods Cancelled Platelet Estimate Cancelled Hypogranular Platelets Cancelled Clumped Platelets Cancelled Giant Platelets Cancelled Platelet Satelliting Cancelled RBC Morphology Cancelled Polychromasia Cancelled Hypochromasia Cancelled Poikilocytosis Cancelled Basophilic Stippling Cancelled Anisocytosis Cancelled Microcytosis Cancelled Macrocytosis Cancelled Spherocytes Cancelled Pappenheimer Bodies Cancelled Sickle Cells Cancelled Target Cells Cancelled Tear Drop Cells Cancelled Ovalocytes Cancelled Stomatocytes Cancelled [place] Bodies Cancelled Echinocytes Cancelled Acanthocytes (Spur) Cancelled Rouleaux Cancelled RBC Agglutinates Cancelled Schistocytes Cancelled RBC Morph Comment Cancelled Sezary Cell Cancelled PT INR Sodium Potassium Chloride Carbon Dioxide Anion Gap BUN Creatinine Est Cr Clr Drug Dosing Est GFR ( Amer) Est GFR (Non-Af Amer) BUN/Creatinine Ratio Glucose Calcium Phosphorus Magnesium Total Bilirubin Direct Bilirubin AST ALT Alkaline Phosphatase Ammonia Troponin I Total Protein Albumin Globulin Albumin/Globulin Ratio Lipase HCG, Qual Specimen Hemolysis Urine Color Urine Appearance (Clear) Urine pH (4.5-7.5) Ur Specific [place] (1.000-1.030) Urine Protein (Negative) Urine Glucose (UA) (Negative) Urine Ketones (Negative) Urine Blood (Negative) Urine Nitrite (Negative) Urine Bilirubin (Negative) Urine Urobilinogen (Negative) Ur Leukocyte Esterase (Negative) Urine RBC (0-4) /hpf Urine WBC (0-5) /hpf Ur Epithelial Cells (0-5) /lpf Urine Bacteria (Negative) Ethyl Alcohol mg/dL Blood Type Antibody Screen Medications Administered Current Inpatient Medications Clotrimazole (Mycelex) 10 mg BUCCAL [id number] [facility] Stop: 07/09/18 06:59 Last Admin: 06/29/18 13:14 Dose: 10 mg Documented by: Folic Acid 1 mg/ Syringe 10 mls @ 5 mls/min IV QAM [facility] Stop: 07/29/18 08:59 Last Admin: 06/29/18 07:33 Dose: 5 mls/min Documented by: Pantoprazole Sodium 40 mg/ (Dextrose) 100 mls @ 20 mls/hr IV Q5H [facility] Stop: 07/29/18 04:29 Last Admin: 06/29/18 10:33 Dose: 8 mg/hr, 20 mls/hr Documented by: Thiamine HCl 100 mg/ Syringe 10 mls @ 2 mls/hr IV QAM [facility] Stop: 07/29/18 08:59 Last Admin: 06/29/18 07:33 Dose: 2 mls/hr Documented by: Potassium Chloride/Dextrose/Sod Cl (D5nss + 20meq Kcl) 20 meq in 1,000 mls @ 100 mls/hr IV .Q10H [facility] Stop: 07/29/18 04:29 Last Admin: 06/29/18 05:19 Dose: 100 mls/hr Documented by: Diazepam 3 mg/ Syringe 0.6 mls @ 0.6 mls/min IV Q4H PRN PRN Reason: ALCOHOL WITHDRAWAL Stop: 07/29/18 11:59 Last Admin: 06/29/18 13:13 Dose: 0.6 mls/min Documented by: Ioversol (Optiray 320 100ml) 93 ml IV ONCE PRN PRN Reason: Interaction Checking Stop: 07/02/18 23:55 Last Admin: 06/28/18 23:57 Dose: 93 ml Documented by: Magnesium Oxide (Mag-Ox) 400 mg PO BID [facility] Stop: 07/29/18 08:59 Last Admin: 06/29/18 10:48 Dose: Not Given Documented by: Ondansetron HCl (Zofran) 4 mg IV Q6H PRN PRN Reason: Nausea Stop: 07/29/18 05:01 Last Admin: 06/29/18 13:13 Dose: 4 mg Documented by: Resident Activity Tracking Resident Involvement: Resident Care Provided Care Provided: Adult Hospital Medicine (1) Alcohol withdrawal Complication of substance-induced condition: with unspecified complication Qualified Code(s): F10.239 - Alcohol dependence with withdrawal, unspecified (2) Neutropenia Neutropenia type: unspecified Qualified Code(s): D70.9 - Neutropenia, unspecified
--- NOTE | 2018-06-29 08:44 | CT Scan Report ---
ABDOMEN AND PELVIS CT WITH IV CONTRAST CT DOSE: 422.40 mGy.cm HISTORY: Acute hemoptysis with nausea, vomiting and acute generalized abdominal pain hemoptysis TECHNIQUE: Multiaxial CT images of the abdomen and pelvis were performed following the use of intrave nous contrast. A dose lowering technique was utilized adhering to the principles of ALARA. COMPARISON STUDY: CT abdomen and pelvis 03/02/2018 FINDINGS: Mild subsegmental bibasilar atelectasis. No pneumatosis or pneumoperitoneum. Imaged inferior cardiac chambers appear unremarkable. Severe hepatic steatosis with diffusely heterogeneous appearance of the liver redemonstrated. Mild ma rginal nodularity of the liver redemonstrated suggestive of associated cirrhotic liver disease. Trace abdominopelvic ascites. No intrahepatic biliary ductal dilation. Patency of the hepatic and portal v eins. Spleen and adrenal glands are unremarkable. Prior cholecystectomy. Mild edema and free fluid se en within the anterior pararenal space also surrounding the duodenum. Kidneys are unremarkable. Mild urothelial thickening noted about the left renal pelvis and left urete r. Moderate circumferential wall thickening of the urinary bladder with perivesicular stranding and p artial distention. Uterus and adnexa appear unremarkable. Aorta and IVC are within normal limits. Non specific mildly prominent aortocaval lymph nodes measure up to 7 mm in short axis. Nonspecific wall t hickening noted about the duodenum. Scattered small bowel air-fluid levels are noted without small calvin wel obstruction. There is nondistention about the majority of the colon. Prior appendectomy. Soft tissues are unremarkable. Tiny fat filled periumbilical hernia. Bones appear to be intact. Demin eralized appearance of the bones. Mild levoscoliosis of the lumbar spine. IMPRESSION: 1. Severe hepatic steatosis redemonstrated along with mild marginal nodularity suggestive of associat ed cirrhosis. Trace abdominopelvic ascites. 2. Mild edema with trace fluid about the anterior pararenal space. Correlate with lipase level to exc lude mild acute pancreatitis. 3. Wall thickening of the duodenum may be reactive or reflect a primary infectious or inflammatory du odenitis. 4. No bowel obstruction. Multiple small bowel air-fluid levels throughout the abdomen and pelvis may be physiologic or reflect a mild enteritis or ileus. 5. Circumferential wall thickening of the bladder with perivesicular stranding is suspicious for cyst itis. Additionally, there is mild urothelial thickening and enhancement about the left renal pelvis a nd proximal left ureter. Correlate with urinalysis. 6. Prior cholecystectomy and appendectomy. Electronically signed by: Sam Etienne M.D. 06/29/2018 8:43 AM
[2018-06-29] MEDS: MAGNESIUM OXIDE 400 MG TAB PO SCH ×3 (10:34→20:13)
[2018-06-29] MEDS: ONDANSETRON INJ 2 MG/ML 2 ML VIAL IV PRN ×2 (13:13→20:20)
[2018-06-29] MEDS: DIAZEPAM IV PRN ×3 (13:13→21:39)
--- NOTE | 2018-06-29 13:36 | Gastrointestinal Consultation ---
Date of Consultation June 29, 2018 Assessment & Plan (1) Hematemesis with nausea: Continue PPI drip. When withdrawal symptoms resolved consider EGD because of ETOH and ongoing naprosyn use abd pain--? PUD vs chronic pancreatitis vs acute pancreatisi wiht normal lipase anemia--chronic but also may drop from GI bleeding---follow cirrhosis--ETOH and hep C hep C--if patient stops ETOH then could be treated as outpt ETOH abuse--discussed with patient continued use of this will lead to in not so distant future and she should stop completley if she wants to live. Even thought Fan discriminant function 42 I do not feel steroids needed as the LFTS are not much different than baseline. ? shortness of breath and chest pain--per hospitalist I am going off service tomorrow 06/30/[address] Sadler is assuming GI care then. coagulopathy--from cirrhosis--follow for liver decompensation duodenal thickeing on CT---consider EGD before DC wall thickening of bladdere---per hospitalist elevated ammonia--follow History of Present Illness Reason for Consultation: Hematemesis Requesting Physician: Dr Rodriguez Attending Physician: Myron Rodriguez History of Present Illness CC abd pain HPI Pt with cirrhosis secondary to untreated hep C and ETOH abuse. She has had multiple admits for ETOH related issues including pancreatitis, hematemesis (EGD 02/2018 normal), ETOH withdrawal. She has pancytopenia, chronic abd pain, elevated LFTS, coagulpathy. She has refused ETOH rehab multiple times. This admit hematemsis at home but no emesis and not stools since admit per nursing. She complains of nausea and abd pain. CT of a/p report demonstrates cirrhosis, trace asctes, fluid parerenal space (? surrogate for pancreatitis), s/p chema, duodenal thickening. Hgb 10 06/17 and admit 9.5 and 9.3 this am. Lipase normal. LFTS and INR elevated and stable to slightly worse. Ammonia 40.3. She is on naprosyn for abd pain. Allergies Allergy/AdvReac Type Severity Reaction Status Date / Time acetaminophen [From Tylenol] AdvReac Intermediate HX Verified 06/18/18 00:17 CIRRHOSIS NSAIDS (Non-Steroidal AdvReac Intermediate HX Verified 06/18/18 00:17 Anti-Inflamma CIRRHOSIS phenytoin AdvReac Intermediate LOSS OF Verified 06/18/18 00:17 EQUILIBRIUM Home Medications Home Medications Medication Instructions Recorded Confirmed Type folic acid 1 mg PO DAILY 05/24/18 06/28/18 History magnesium oxide 400 mg PO BID 05/24/18 06/28/18 History metoprolol tartrate 12.5 mg PO TID 06/06/18 06/28/18 History naproxen sodium [Aleve] 220 mg PO BID PRN 06/28/18 06/28/18 History ondansetron 4 mg PO Q8 PRN 06/28/18 06/28/18 History pedi multivit no.7-folic acid 1 tab PO DAILY 06/28/18 06/28/18 History [Flintstones Tab Chew] thiamine HCl (vitamin B1) [Vitamin 100 mg PO DAILY 06/28/18 06/28/18 History B-1] Patient History Medical History Alcohol withdrawal Hypokalemia Seizures Pancreatitis (Chronic) Liver failure Schizoaffective disorder (Chronic) Arthritis Depression Hypertension Liver disease Thyroid disease Gastritis Liver cancer (Chronic) Alcoholism Acute recurrent pancreatitis (Acute Unknown) 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 hepatitis C (Chronic Unknown) Chronic pancreatitis (Chronic Unknown) Cirrhosis, alcoholic (Chronic) Chronic renal failure, stage 3 (moderate) (Chronic) Polysubstance abuse (Acute) Depression with suicidal ideation (Acute) TIA (transient ischemic attack) (Acute) Hypotension (Acute) Neutropenia (Acute) Pancytopenia (Acute) Anemia (Acute) Hypocalcemia (Acute) Hypernatremia (Acute) Alcohol withdrawal Cholecystectomy planned Cholecystectomy planned Hyponatremia Surgical History Cholecystectomy planned History of appendectomy Family History Mother Multiple sclerosis Father , age 52 Acute coronary occlusion without mycocardial infarction Social History Preferred Language: Ma[employer] Operator Required: No Beliefs That Will Affect Care: None marital status: Current Living Situation: Alone current occupational status: unemployed and disabled Other Information That Helps Us Care for You: No Feels Safe at Home: Yes Safety Concerns: Feels Safe At This Time Smoking Status: Current every day smoker Hx Alcohol Use: Yes Hx Substance Use: No Review of Systems see HPI she states has chest pain and shortness of breath but history questionable. Other remaining out of 10 Ros neg. Physical Exam Vital Signs (Past 24 Hours): Last Vital Signs Temp 36.8 C 06/29/18 11:22 Pulse 87 06/29/18 11:22 Resp 22 06/29/18 11:22 BP 112/80 06/29/18 11:22 Pulse Ox 96 06/29/18 11:22 Constitutional: WD/WN, vitals as above whole body shaking Eyes: PERRL, conjunctivae normal, anicteric sclerae Neck: normal visual inspection and trachea midline Cardiovascular: RRR, no murmur, no edema Gastrointestinal (Abdomen): abdomen pos bs, subjective diffuse pain but no guarding nor rebound Neurologic: PERRL, EOMI, accommodation nl, no face palsy, no dysarthria Psychiatric: Motor Behavior: + tremor
[2018-06-29] MEDS: cefTRIAXone SODIUM 1,000 MG in DEXTROSE 5% 50 ML IV SCH (16:25)
[2018-06-29] MEDS: GABAPENTIN 300 MG CAP PO SCH ×3 (16:30→20:05)
[2018-06-29] MEDS: NICOTINE 14 MG/24 HR PATCH TD SCH (17:02)
[2018-06-29] MEDS ORDERED: LORazepam 2 MG/4 ML VIAL IV PRN (18:53)
[2018-06-30] MEDS: PANTOprazole 40 MG in DEXTROSE 5% 100 ML IV SCH ×5 (00:25→21:52)
[2018-06-30] MEDS: CLOTRIMAZOLE 10 MG TROCHE BUCCAL SCH ×6 (00:25→22:36)
[2018-06-30] MEDS: D5NSS + 20MEQ KCL 20 MEQ/1,000 ML BAG IV SCH ×3 (00:26→21:52)
[2018-06-30] MEDS: DIAZEPAM IV PRN ×5 (00:30→19:27)
[2018-06-30] MEDS: ONDANSETRON INJ 2 MG/ML 2 ML VIAL IV PRN ×3 (04:36→19:27)
[2018-06-30 05:53] LABS: INR 1.9 (0.9-1.1); Prothrombin Time 18.2 Seconds (9.0-12.0)
[2018-06-30 06:20] LABS: Albumin Level 1.7 gm/dl (3.4-5.0); Calcium 6.6 mg/dl (8.5-10.1); Creatinine Clr Calc Pharmacy 109.4 ml/min; Est GFR (African American) 120.8; Est GFR (Non-African American) 104.3; Potassium 3.5 mmol/L (3.5-5.1)
[2018-06-30 06:24] LABS: Albumin Globulin Ratio 0.3 (0.9-2); Bilirubin,Total 2.5 mg/dl (0.2-1); Globulin 4.9 gm/dl (2.5-4.0); Total Protein 6.6 gm/dl (6.4-8.2)
[2018-06-30 06:25] LABS: Hematocrit (blood only) 24.9 % (37-47); Hemoglobin 8.5 g/dL (12.0-16.0); Mean Corpuscular Hgb Conc 34.1 g/dL (32-36); Mean Corpuscular Volume 96.1 fL (80-100); Mean Platelet Volume 11.4 fL (7.4-10.4); Platelet Count 25 K/uL (130-400); RDW Coefficient of Variation 17.8 % (11.5-14.5); RDW Standard Deviation 63.1 fL (36.4-46.3); Red Blood Count 2.59 M/uL (4.2-5.4); White Blood Count 1.91 K/uL (4.8-10.8)
[2018-06-30 07:16] LABS: Basophils # (auto) 0.01 K/uL (0-0.2); Basophils % (auto) 0.5 %; Eosinophils # (auto) 0.09 K/uL (0-0.5); Eosinophils % (auto) 4.7 %; Lymphocytes # (auto) 1.03 K/uL (1.2-3.4); Lymphocytes % (auto) 53.9 %; Monocytes # (auto) 0.18 K/uL (0.11-0.59); Monocytes % (auto) 9.4 %; Neutrophils % (auto) 31.5 %; Target Cells 1+
[2018-06-30] MEDS: GABAPENTIN 300 MG CAP PO SCH ×6 (07:44→19:27)
[2018-06-30] MEDS: MAGNESIUM OXIDE 400 MG TAB PO SCH ×2 (07:45→22:36)
[2018-06-30] MEDS: NICOTINE 14 MG/24 HR PATCH TD SCH (07:45)
[2018-06-30] MEDS: FOLIC ACID 1 MG in SYRINGE 9.8 ML IV SCH (07:45)
[2018-06-30] MEDS: THIAMINE HCL 100 MG in SYRINGE 9 ML IV SCH (07:46)
[2018-06-30] MEDS: cefTRIAXone SODIUM 1,000 MG in DEXTROSE 5% 50 ML IV SCH (07:46)
--- NOTE | 2018-06-30 14:45 | Family Medicine Progress Note ---
Date of Service June 30, 2018 Assessment & Plan (1) Hematemesis with nausea: Ms. Barros is a 47 year old female with a history of ETOH abuse, ETOH cirrhosis, ETOH-related seizures, pancreatitis, and pancytopenia related to cirrhosis who presents to the emergency department due to abdominal pain and several episodes of hematemesis that occurred at approximately 8 o'clock this evening. ED course: Patient received 1 g of calcium gluconate, 10 mg of IV metoclopramide, 20 mg of IV famotidine, 2 mg of Ativan, 1 g of magnesium sulfate, 1 L normal saline bolus, 1 banana bag, 40 mg IV pantoprazole, and 4 mg IV Zofran. -admitted to telemetry -no hematemesis since presentation to the hospital -CT abdomen and pelvis showed nonspecific edema around gastroduodenal area -> liver disease vs. PUD/gastroduodenitis -CT scan findings, hx of hematemesis and epigastric tenderness suggestive of PUD/gastritis -Cx'd GI -Pt must stop drinking -Continue PPI drip. 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 -IVF - D5 NS with 20 mEq at 100mls/hr. -Replete e- as indicated DVT Prophylaxis: contraindicated in setting of hematemesis, low platelets and INR of 1.9 Code status: FULL Disposition: admit to telemetry F/E/N: Regular diet monitor e- Present on Admission?: Yes (2) Alcohol withdrawal: -Patient received a banana bag in the emergency department, as well as 2 mg of IV Ativan -on admit, patient tremulous despite having an alcohol level of 272.4 -Previous orders on admit, AWSS protocol and 3mg of valium IV ordered q4h prn withdrawal symptoms -Consider Librium taper once patient able to have PO -1mg IV folic acid and 100mg IV thiamine ordered QAM -On 3/, this morning still tremulous, denies hallucinations Present on Admission?: Yes (3) Liver cirrhosis, alcoholic: -Secondary to alcohol abuse and hepatitis C -Hold metoprolol tartrate as no evidence of esophageal varices and prior EGD, unsure as to why patient is on this -LFTs are similar to prior presentations, with a INR of 1.9, total bilirubin 1.7, AST of 141, ALT of 62 and alk phos of 175 -Maddrey's Score of 42 - no indication for glucocorticoid therapy Present on Admission?: Yes (4) Hypocalcemia: -Received calcium gluconate in the emergency department for calcium level of 6.7, today 6.6 corrected is 8.34. -Will order another dose of Calcium gluconate 10% 1,000mg x1. -Trend electrolytes (5) Hypomagnesemia: -Previously Given 4 g of magnesium sulfate, am labs showed 1.6 -continue home magnesium oxide supplementation -Will continue to monitor (6) Seizures: -Patient has a history of seizures related to alcohol withdrawal, and reports having had seizures prior to admission -Seizure precautions, continue to monitor -No seizure activity/episodes noted during admission (7) Pancreatitis: Does not have pancreatitis, lipase normal at 292 and not 3x the upper limit to consider positive Although mild edema with trace fluid about the anterior pararenal space, lipase level excludes mild acute pancreatitis. (8) Neutropenia: History of chronic pancytopenia WBC 1.91 today which appears consistent with previous recent labwork. Does appear to be worsening since November 2017, most likely to EtOH abuse. - Previous labs show chronic neutropenia (9) Thrombocytopenia: Chronic problem On admit 42, This morning's value 25. No acute signs of bleeding. Has had low values in the 20s previously on several occasions. 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 Will continue to monitor, if drops lower may consider platelet transfusion to prevent spontaneous intracranial hemmorhage. (10) Tobacco abuse: -nicotine patch provided -smoking cessation provided (11) Hepatitis C: (12) Oral thrush: -nystatin on backorder, will treat with clotrimazole x7 days (Day 2/7) -likely secondary to chronic neutropenia (13) Dysuria: -Previous U/A suggests infection but not clean catch and was started on Rocephin pending cx results -Culture results today are positive for E. coli >100,000 with sensitivities to follow. - Continue with Rocephin, currently on day 2. (14) Pancytopenia: -labs similar to previous admissions -> On admission noted WBC of 3.17, Hgb of 9.5, Platelet count of 42 -Today /, WBC 1.91, Hgb 8.5, platelet 25 -No signs of GI bleed -has had a bone marrow biopsy in 2014 which was unremarkable. Pancytopenia deemed to be secondary to nutritional insufficiency, liver failure, EtOH mitrochondrial toxicity of bone marrow. -Will continue to monitor Supervising Physician Co-Signing Physician Notes Patient seen and examined with the resident. Agree with history, physical exam, assessment and plan with the following updates/corrections: 47yo F w/ hx of HCV and alcholic cirrhosis who presents for hematemesis. Resting comforably on my exam, reports tremors and continued abdominal pain. 1) Hematemesis - None observed inpatient. - Trend hgb - PPI gtt - Thiamine, folate - Plan for EGD with GI once withdrawal is lessened. 2) Thrombocytopenia - Platelets usually range from 25-100. Seem to drop during acute illness. - Plt down to 25 on 06/30. - In for hematemesis, but no signs of bleeding while inpatient. - Trend hgb and vitals; if stable, will transfuse for plt < 10k; however, if signs of bleeding, will transfuse for plt < 50k. 3) Alcohol withdrawal - Current GUNNAR scores was 3. - Diazepam PRN 4) Cirrhosis - Due to untreated HCV and alchol abuse - Counseled for alcohol cessation Subjective Mary states she continues to have tremors from alcohol withdrawal. Mary denies hallucinations. She cannot recall last drink maybe Saturday. She notes that she was having trouble keeping down her beer and was drinking slow to try to avoid vomiting, prior to coming to ED. She denies any vomiting, black/bloody stools, fever, chills. She notes she has upper abdominal and back pain that was present on admission. She acknowledges that analgesic treatments cannot be provided because of liver disease and anemia. Physical Exam Vital Signs (Past 24 Hours): Last Vital Signs Temp 37.1 C 06/30/18 11:40 Pulse 87 06/30/18 11:40 Resp 18 06/30/18 11:40 BP 132/69 06/30/18 11:40 Pulse Ox 93 06/30/18 11:40 Constitutional: well developed, cooperative and comfortable Eyes: + anicteric sclerae and EOM intact bilaterally Neck: normal visual inspection Respiratory: normal respiratory effort, lungs clear to auscultation Cardiovascular: RRR, no murmur, no edema Gastrointestinal (Abdomen): Inspection/Auscultation: normal bowel sounds Percussion/Palpation: + abdomen tender (upper abdominal without rebound) and abdomen soft; no guarding Musculoskeletal: Head/Neck/Chest: normocephalic and head atraumatic Extr emities: extremities normal to inspection Skin: no rashes, warm and dry Neurologic: moves all extremities and awake Motor/Sensory: + tremor (generalized) Psychiatric: Orientation: alert Eye Contact: good eye contact Motor Behavior: + tremor (generalized) Affect: + anxious affect Results & Data Laboratory Results Laboratory Results - last 24 hr 06/28/18 06/30/18 06/30/18 22:31 05:23 05:23 WBC 1.91 L RBC 2.59 L Hgb 8.5 L Hct 24.9 L MCV 96.1 MCH 32.8 MCHC 34.1 RDW Std Deviation 63.1 H RDW Coeff of Michelle 17.8 H Plt Count 25 L* MPV 11.4 H Immature Gran % (Auto) 0.0 Neut % (Auto) 31.5 Lymph % (Auto) 53.9 [place] % (Auto) 9.4 Eos % (Auto) 4.7 Baso % (Auto) 0.5 Immature Gran # (Auto) 0.00 Neut # (Auto) 0.60 L* Lymph # (Auto) 1.03 L King[place] # (Auto) 0.18 Eos # (Auto) 0.09 Baso # (Auto) 0.01 Blood Smear Review Target Cells 1+ PT 18.2 H INR 1.9 H Sodium Potassium Chloride Carbon Dioxide Anion Gap BUN Creatinine Est Cr Clr Drug Dosing Est GFR ( Amer) Est GFR (Non-Af Amer) BUN/Creatinine Ratio Glucose Calcium Total Bilirubin AST ALT Alkaline Phosphatase Ammonia Total Protein Albumin Globulin Albumin/Globulin Ratio 06/30/18 06/30/18 05:23 05:23 WBC RBC Hgb Hct MCV MCH MCHC RDW Std Deviation RDW Coeff of Michelle Plt Count MPV Immature Gran % (Auto) Neut % (Auto) Lymph % (Auto) [place] % (Auto) Eos % (Auto) Baso % (Auto) Immature Gran # (Auto) Neut # (Auto) Lymph # (Auto) [place] # (Auto) Eos # (Auto) Baso # (Auto) Blood Smear Review Target Cells PT INR Sodium 138 Potassium 3.5 Chloride 107 Carbon Dioxide 25 Anion Gap 6.0 BUN 3 L Creatinine 0.65 Est Cr Clr Drug Dosing 109.4 Est GFR ( Amer) 120.8 Est GFR (Non-Af Amer) 104.3 BUN/Creatinine Ratio 4.0 L Glucose 119 H Calcium 6.6 L Total Bilirubin 2.5 H AST 118 H ALT 49 Alkaline Phosphatase 153 H Ammonia 37.0 H Total Protein 6.6 Albumin 1.7 L Globulin 4.9 H Albumin/Globulin Ratio 0.3 L Medications Administered Clotrimazole (Mycelex) 10 mg BUCCAL [id number] [facility] Stop: 07/09/18 06:59 Last Admin: 06/30/18 12:03 Dose: 10 mg Documented by: [id number] Admin: 06/30/18 07:44 Dose: 10 mg Documented by: [id number] Admin: 06/30/18 00:25 Dose: 10 mg Documented by: [id number] Admin: 06/29/18 20:03 Dose: 10 mg Documented by: [id number] Admin: 06/29/18 16:07 Dose: 10 mg Documented by: [id number] Admin: 06/29/18 13:14 Dose: 10 mg Documented by: [id number] Admin: 06/29/18 07:33 Dose: 10 mg Documented by: [id number] Gabapentin (Neurontin) 300 mg PO Q2H [facility] Stop: 06/30/18 19:01 Last Admin: 06/30/18 13:51 Dose: 300 mg Documented by: [id number] Admin: 06/30/18 12:03 Dose: 300 mg Documented by: [id number] Admin: 06/30/18 07:44 Dose: 300 mg Documented by: [id number] Folic Acid 1 mg/ Syringe 10 mls @ 5 mls/min IV QAM [facility] Stop: 07/29/18 08:59 Last Admin: 06/30/18 07:45 Dose: 5 mls/min Documented by: [id number] Admin: 06/29/18 07:33 Dose: 5 mls/min Documented by: [id number] Pantoprazole Sodium 40 mg/ (Dextrose) 100 mls @ 20 mls/hr IV Q5H [facility] Stop: 07/29/18 04:29 Last Admin: 06/30/18 11:03 Dose: 8 mg/hr, 20 mls/hr Documented by: [id number] Infusion: 06/30/18 10:52 Dose: 0 mg/hr, 0 mls/hr Documented by: [id number] Infusion: 06/30/18 08:27 Dose: 8 mg/hr, 20 mls/hr Documented by: [id number] Infusion: 06/30/18 08:07 Dose: 0 mg/hr, 0 mls/hr Documented by: [id number] Admin: 06/30/18 05:28 Dose: 8 mg/hr, 20 mls/hr Documented by: [id number] Infusion: 06/30/18 05:25 Dose: 8 mg/hr, 20 mls/hr Documented by: [id number] Admin: 06/30/18 00:25 Dose: 8 mg/hr, 20 mls/hr Documented by: [id number] Infusion: 06/30/18 00:25 Dose: 8 mg/hr, 20 mls/hr Documented by: [id number] Admin: 06/29/18 19:28 Dose: 8 mg/hr, 20 mls/hr Documented by: [id number] Infusion: 06/29/18 19:28 Dose: 8 mg/hr, 20 mls/hr Documented by: [id number] Admin: 06/29/18 16:07 Dose: 8 mg/hr, 20 mls/hr Documented by: [id number] Infusion: 06/29/18 15:33 Dose: 8 mg/hr, 20 mls/hr Documented by: [id number] Admin: 06/29/18 10:33 Dose: 8 mg/hr, 20 mls/hr Documented by: [id number] Infusion: 06/29/18 10:18 Dose: 8 mg/hr, 20 mls/hr Documented by: [id number] Admin: 06/29/18 05:18 Dose: 8 mg/hr, 20 mls/hr Documented by: [id number] Thiamine HCl 100 mg/ Syringe 10 mls @ 2 mls/hr IV QAM [facility] Stop: 07/29/18 08:59 Last Admin: 06/30/18 07:46 Dose: 2 mls/hr Documented by: [id number] Admin: 06/29/18 07:33 Dose: 2 mls/hr Documented by: [id number] Potassium Chloride/Dextrose/Sod Cl (D5nss + 20meq Kcl) 20 meq in 1,000 mls @ 100 mls/hr IV .Q10H [facility] Stop: 07/29/18 04:29 Last Admin: 06/30/18 11:01 Dose: 100 mls/hr Documented by: [id number] Infusion: 06/30/18 10:52 Dose: 0 mls/hr Documented by: [id number] Infusion: 06/30/18 08:27 Dose: 100 mls/hr Documented by: [id number] Infusion: 06/30/18 08:06 Dose: 0 mls/hr Documented by: [id number] Admin: 06/30/18 00:26 Dose: 100 mls/hr Documented by: [id number] Infusion: 06/30/18 00:26 Dose: 100 mls/hr Documented by: [id number] Admin: 06/29/18 16:03 Dose: 100 mls/hr Documented by: [id number] Infusion: 06/29/18 15:19 Dose: 100 mls/hr Documented by: [id number] Admin: 06/29/18 05:19 Dose: 100 mls/hr Documented by: [id number] Diazepam 3 mg/ Syringe 0.6 mls @ 0.6 mls/min IV Q4H PRN PRN Reason: ALCOHOL WITHDRAWAL Stop: 07/29/18 11:59 Last Admin: 06/30/18 14:22 Dose: 0.6 mls/min Documented by: [id number] Admin: 06/30/18 09:09 Dose: 0.6 mls/min Documented by: [id number] Admin: 06/30/18 04:36 Dose: 0.6 mls/min Documented by: [id number] Admin: 06/30/18 00:30 Dose: 0.6 mls/min Documented by: [id number] Admin: 06/29/18 21:39 Dose: 0.6 mls/min Documented by: [id number] Admin: 06/29/18 17:03 Dose: 0.6 mls/min Documented by: [id number] Admin: 06/29/18 13:13 Dose: 0.6 mls/min Documented by: [id number] Ceftriaxone Sodium 1,000 mg/ (Dextrose) 50 mls @ 100 mls/hr IV DAILY [facility] Stop: 07/04/18 15:59 Last Infusion: 06/30/18 08:17 Dose: 0 mls/hr Documented by: [id number] Admin: 06/30/18 07:46 Dose: 100 mls/hr Documented by: [id number] Infusion: 06/29/18 17:34 Dose: 0 mls/hr Documented by: [id number] Admin: 06/29/18 16:25 Dose: 100 mls/hr Documented by: [id number] Ioversol (Optiray 320 100ml) 93 ml IV ONCE PRN PRN Reason: Interaction Checking Stop: 07/02/18 23:55 Last Admin: 06/28/18 23:57 Dose: 93 ml Documented by: [id number] Magnesium Oxide (Mag-Ox) 400 mg PO BID [facility] Stop: 07/29/18 08:59 Last Admin: 06/30/18 07:45 Dose: 400 mg Documented by: [id number] Admin: 06/29/18 20:13 Dose: 400 mg Documented by: [id number] Admin: 06/29/18 10:48 Dose: Not Given Documented by: [id number] Miscellaneous (Remove Nicoderm Patch) 1 ea N/A HS [facility] Stop: 07/29/18 20:59 Last Admin: 06/29/18 21:39 Dose: 1 ea Documented by: [id number] Nicotine (Nicoderm Cq) 14 mg TD QAM [facility] Stop: 07/29/18 16:14 Last Admin: 06/30/18 07:45 Dose: 14 mg Documented by: [id number] Admin: 06/29/18 17:02 Dose: 14 mg Documented by: [id number] Ondansetron HCl (Zofran) 4 mg IV Q6H PRN PRN Reason: Nausea Stop: 07/29/18 05:01 Last Admin: 06/30/18 10:42 Dose: 4 mg Documented by: [id number] Admin: 06/30/18 04:36 Dose: 4 mg Documented by: [id number] Admin: 06/29/18 20:20 Dose: 4 mg Documented by: [id number] Admin: 06/29/18 13:13 Dose: 4 mg Documented by: [id number] (1) Alcohol withdrawal Complication of substance-induced condition: with unspecified complication Qualified Code(s): F10.239 - Alcohol dependence with withdrawal, unspecified (2) Neutropenia Neutropenia type: unspecified Qualified Code(s): D70.9 - Neutropenia, unspecified
[2018-06-30] MEDS ORDERED: CALCIUM GLUCONATE 10% 1,000 MG in SODIUM CHLORIDE 0.9% 50 ML IV ONE (14:55)
[2018-06-30 15:43] LABS: Hematocrit (blood only) 25.3 % (37-47); Hemoglobin 8.6 g/dL (12.0-16.0); Mean Corpuscular Volume 97.3 fL (80-100); RDW Coefficient of Variation 17.9 % (11.5-14.5); RDW Standard Deviation 63.5 fL (36.4-46.3); White Blood Count 1.63 K/uL (4.8-10.8)
[2018-06-30 16:01] LABS: Platelet Count 31 K/uL (130-400)
--- NOTE | 2018-06-30 18:04 | Progress Note ---
DATE: 06/30/2018 HISTORY OF PRESENT ILLNESS: The patient reports back pain. The patient continues to be tremulous. PHYSICAL EXAMINATION: VITAL SIGNS: Blood pressure 113/50, pulse 77. ABDOMEN: Soft. I cannot really elicit any hepatomegaly. She does have some palmar erythema and a few spider angiomata on her anterior chest. IMPRESSION: The patient has alcohol related hepatitis along with chronic hepatitis C, again this reinforced the fact that alcohol is causing severe liver damage and cirrhosis with likely progression if she continues to drink and resulting most likely in premature . She said that she is willing to go to rehab with her sister who is also an alcoholic. We have been down this road in the past and it has never really happened, I am hoping that the social workers can coordinate something like that that will hopefully intervene in the sense that it will get her to stop drinking. Otherwise, this will be a revolving door situation as it has been so far. I do not really have any other significant input at this time, but we will continue to follow the patient during her hospitalization.
[2018-07-01] MEDS: DIAZEPAM IV PRN ×5 (00:17→21:16)
[2018-07-01] MEDS: PANTOprazole 40 MG in DEXTROSE 5% 100 ML IV SCH ×4 (02:34→18:56)
[2018-07-01] MEDS: ONDANSETRON INJ 2 MG/ML 2 ML VIAL IV PRN ×3 (04:16→21:16)
[2018-07-01 05:49] LABS: INR 1.9 (0.9-1.1); Prothrombin Time 18.8 Seconds (9.0-12.0)
[2018-07-01 05:59] LABS: Albumin Level 1.7 gm/dl (3.4-5.0); BUN Creatinine Ratio 3.4 (10-20); Calcium 6.9 mg/dl (8.5-10.1); Creatinine Clr Calc Pharmacy 114.7 ml/min; Est GFR (African American) 122.7; Est GFR (Non-African American) 105.9; Potassium 3.7 mmol/L (3.5-5.1)
[2018-07-01 06:04] LABS: Albumin Globulin Ratio 0.3 (0.9-2); Bilirubin,Total 2.2 mg/dl (0.2-1); Globulin 4.9 gm/dl (2.5-4.0); Total Protein 6.6 gm/dl (6.4-8.2)
[2018-07-01 06:56] LABS: Hematocrit (blood only) 25.3 % (37-47); Hemoglobin 8.5 g/dL (12.0-16.0); Mean Corpuscular Volume 97.7 fL (80-100); Mean Platelet Volume 12.2 fL (7.4-10.4); RDW Coefficient of Variation 17.8 % (11.5-14.5); RDW Standard Deviation 63.9 fL (36.4-46.3); Red Blood Count 2.59 M/uL (4.2-5.4); White Blood Count 1.74 K/uL (4.8-10.8)
[2018-07-01 07:01] LABS: Mean Corpuscular Hgb Conc 33.6 g/dL (32-36); Platelet Count 26 K/uL (130-400)
[2018-07-01 07:02] LABS: Eosinophils % (auto) 5.7 %; Lymphocytes # (auto) 0.95 K/uL (1.2-3.4); Lymphocytes % (auto) 54.6 %; Monocytes # (auto) 0.13 K/uL (0.11-0.59); Monocytes % (auto) 7.5 %; Neutrophils # (auto) 0.56 K/uL (1.4-6.5); Neutrophils % (auto) 32.2 %; Platelet Estimate SIGNIFIC DECREASED (Normal); Target Cells 1+
[2018-07-01] MEDS: D5NSS + 20MEQ KCL 20 MEQ/1,000 ML BAG IV SCH ×2 (07:28→18:57)
[2018-07-01] MEDS: CLOTRIMAZOLE 10 MG TROCHE BUCCAL SCH ×5 (07:29→22:23)
[2018-07-01] MEDS: THIAMINE HCL 100 MG in SYRINGE 9 ML IV SCH (07:30)
[2018-07-01] MEDS: NICOTINE 14 MG/24 HR PATCH TD SCH (07:30)
[2018-07-01] MEDS: FOLIC ACID 1 MG in SYRINGE 9.8 ML IV SCH (07:30)
[2018-07-01] MEDS: MAGNESIUM OXIDE 400 MG TAB PO SCH ×2 (07:30→21:24)
[2018-07-01] MEDS: cefTRIAXone SODIUM 1,000 MG in DEXTROSE 5% 50 ML IV SCH (09:11)
--- NOTE | 2018-07-01 13:40 | Family Medicine Progress Note ---
Date of Service July 01, 2018 Assessment & Plan (1) Hematemesis with nausea: Ms. Barros is a 47 year old female with a history of ETOH abuse, ETOH cirrhosis, ETOH-related seizures, pancreatitis, and pancytopenia related to cirrhosis who presents to the emergency department due to abdominal pain and several episodes of hematemesis that occurred at approximately 8 o'clock this evening. ED course: Patient received 1 g of calcium gluconate, 10 mg of IV metoclopramide, 20 mg of IV famotidine, 2 mg of Ativan, 1 g of magnesium sulfate, 1 L normal saline bolus, 1 banana bag, 40 mg IV pantoprazole, and 4 mg IV Zofran. -admitted to telemetry -no hematemesis since presentation to the hospital -CT abdomen and pelvis showed nonspecific edema around gastroduodenal area -> liver disease vs. PUD/gastroduodenitis -CT scan findings, hx of hematemesis and epigastric tenderness suggestive of PUD/gastritis -Cx'd GI -Pt must stop drinking -Continue PPI drip. 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 -On IVF - D5 NS with 20 mEq at 100mls/hr. -Replete e- as indicated DVT Prophylaxis: contraindicated in setting of hematemesis, low platelets and INR of 1.9 Code status: FULL Disposition: admit to telemetry F/E/N: Regular diet monitor e- (2) Alcohol withdrawal: -Patient received a banana bag in the emergency department, as well as 2 mg of IV Ativan -on admit, patient tremulous despite having an alcohol level of 272.4 -Previous orders on admit, AWSS protocol and 3mg of valium IV ordered q4h prn withdrawal symptoms -Consider Librium taper once patient able to have PO -1mg IV folic acid and 100mg IV thiamine ordered QAM -On 07/01/18, this morning still tremulous, denies hallucinations but states are improving. Yesterday, received 5 doses of Diazepam 3mg total. (3) Liver cirrhosis, alcoholic: -Secondary to alcohol abuse and hepatitis C -Hold metoprolol tartrate as no evidence of esophageal varices and prior EGD, unsure as to why patient is on this -LFTs are similar to prior presentations, with a INR of 1.9, total bilirubin 1.7, AST of 141, ALT of 62 and alk phos of 175 -Maddrey's Score of 42 - no indication for glucocorticoid therapy -Labs stable at patient's baseline, consistent AST:ALT ratio 2:1 consistent with mitochondrial toxicity from alcohol abuse, same as from previous admission. -Mary wishing to go to rehab upon discharge, will work with case management. (4) Hypocalcemia: -Received calcium gluconate in the emergency department for calcium level of 6.7, yesterday 6.6 corrected is 8.34. -Yesterday 06/30/18 received Calcium gluconate 10% 1,000mg x1. Today, improved to 6.9 with corrected is 8.74 and within normal limits. -Trend electrolytes (5) Hypomagnesemia: -Previously Given 4 g of magnesium sulfate, am labs showed 1.6 on 06/28/18 -continue home magnesium oxide supplementation (6) Seizures: -Patient has a history of seizures related to alcohol withdrawal, and reports having had seizures prior to admission -Seizure precautions, continue to monitor -No seizure activity/episodes noted during admission (7) Pancreatitis: Clinical picture not consistent with pancreatitis, lipase normal at 292 and not 3x the upper limit to consider positive Although mild edema with trace fluid about the anterior pararenal space, lipase level excludes mild acute pancreatitis. (8) Neutropenia: History of chronic pancytopenia WBC 1.74 today which appears consistent with previous recent labwork. Does appear to be worsening since November 2017, most likely to EtOH abuse. - Previous labs show chronic neutropenia (9) Thrombocytopenia: Chronic problem On admit 42, This morning's value 26. No acute signs of bleeding. Has had low values in the 20s previously on several occasions. 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 Will continue to monitor, if drops lower may consider platelet transfusion to prevent spontaneous intracranial hemmorhage. (10) Tobacco abuse: -nicotine patch provided -smoking cessation provided (11) Hepatitis C: (12) Oral thrush: -nystatin on backorder, will treat with clotrimazole x7 days (Day 3/7) -likely secondary to chronic neutropenia (13) Dysuria: -Previous U/A suggests infection but not clean catch and was started on Rocephin pending cx results -Culture results today are positive for E. coli >100,000 with sensitivities showing dowling-sensitive. -Continue with Rocephin, currently on day 3. (14) Pancytopenia: -labs similar to previous admissions -> On admission noted WBC of 3.17, Hgb of 9.5, Platelet count of 42 -Today 3/, WBC 1.74, Hgb 8.5, platelet 26 -No signs of GI bleed -has had a bone marrow biopsy in 2014 which was unremarkable. Pancytopenia deemed to be secondary to nutritional insufficiency, liver failure, EtOH mitrochondrial toxicity of bone marrow. -Will continue to monitor Supervising Physician Co-Signing Physician Notes Patient seen and examined with the resident. Agree with history, physical exam, assessment and plan with the following updates/corrections: 47yo F w/ hx of HCV and alcholic cirrhosis who presents for hematemesis. Resting comfortably on my exam. Reports tremors and continued abdominal pain and back pain for which she requests more diazepam. 1) Hematemesis - None observed inpatient. Hgb stable ~8.5. - Trend hgb - Cont PPI gtt x 72 hours, then transition to BID - Thiamine, folate - Per GI note from 06/30, appears that it is unlikely they are going to do an EGD inpatient. 2) Thrombocytopenia - Platelets usually range from 25-100. Seem to drop during acute illness. - Plt down to 25 on 06/30 & 07/01. - Admitted for hematemesis, but no signs of bleeding while inpatient. - Trend hgb and vitals; if stable, will transfuse for plt < 10k; however, if signs of bleeding, will transfuse for plt < 50k. 3) Alcohol withdrawal - Current GUNNAR scores are 3-4. May need to scale back benzo as she is getting frequent dosing for questionable withdrawal. - Diazepam PRN 4) Cirrhosis - Due to untreated HCV and alcohol abuse - Counseled for alcohol cessation - Reports she will go to rehab - Will get CM to help with this Subjective Mary reports that tremors have improved today but are still present. She denies hallucinations. She reports feeling "gassy." She tolerated her breakfas t this morning without difficulty. No acute events reported overnight. Physical Exam Vital Signs (Past 24 Hours): Last Vital Signs Temp 36.7 C 07/01/18 10:57 Pulse 83 07/01/18 10:57 Resp 20 07/01/18 10:57 BP 123/79 07/01/18 10:57 Pulse Ox 98 07/01/18 10:57 Constitutional: well developed, cooperative and comfortable Eyes: + anicteric sclerae and EOM intact bilaterally Neck: normal visual inspection Respiratory: normal respiratory effort, lungs clear to auscultation Cardiovascular: RRR, no murmur, no edema Gastrointestinal (Abdomen): Inspection/Auscultation: normal bowel sounds Percussion/Palpation: + abdomen tender (upper abdominal without rebound) and abdomen soft; no guarding Musculoskeletal: Head/Neck/Chest: normocephalic and head atraumatic Extremities: extremities normal to inspection Skin: no rashes, warm and dry Neurologic: moves all extremities and awake Motor/Sensory: + tremor (generalized) Psychiatric: Orientation: alert Eye Contact: good eye contact Motor Behavior: + tremor (generalized) Affect: + anxious affect Results & Data Laboratory Results Laboratory Results - last 24 hr 06/30/18 07/01/18 07/01/18 15:19 05:18 05:18 WBC 1.63 L 1.74 L RBC 2.60 L 2.59 L Hgb 8.6 L 8.5 L Hct 25.3 L 25.3 L MCV 97.3 97.7 MCH 33.1 32.8 MCHC 34.0 33.6 RDW Std Deviation 63.5 H 63.9 H RDW Coeff of Michelle 17.9 H 17.8 H Plt Count 31 L 26 L* MPV 12.2 H Immature Gran % (Auto) 0.0 Neut % (Auto) 32.2 Lymph % (Auto) 54.6 [place] % (Auto) 7.5 Eos % (Auto) 5.7 Baso % (Auto) 0.0 Immature Gran # (Auto) 0.00 Neut # (Auto) 0.56 L* Lymph # (Auto) 0.95 L [place] # (Auto) 0.13 Eos # (Auto) 0.10 Baso # (Auto) 0.00 Platelet Estimate SIGNIFIC DECREASED Target Cells 1+ PT 18.8 H INR 1.9 H Sodium Potassium Chloride Carbon Dioxide Anion Gap BUN Creatinine Est Cr Clr Drug Dosing Est GFR ( Amer) Est GFR (Non-Af Amer) BUN/Creatinine Ratio Glucose Calcium Total Bilirubin AST ALT Alkaline Phosphatase Ammonia Total Protein Albumin Globulin Albumin/Globulin Ratio 07/01/18 07/01/18 05:18 05:18 WBC RBC Hgb Hct MCV MCH MCHC RDW Std Deviation RDW Coeff of Michelle Plt Count MPV Immature Gran % (Auto) Neut % (Auto) Lymph % (Auto) [place] % (Auto) Eos % (Auto) Baso % (Auto) Immature Gran # (Auto) Neut # (Auto) Lymph # (Auto) [place] # (Auto) Eos # (Auto) Baso # (Auto) Platelet Estimate Target Cells PT INR Sodium 138 Potassium 3.7 Chloride 110 H Carbon Dioxide 26 Anion Gap 2.0 L BUN 2 L Creatinine 0.62 Est Cr Clr Drug Dosing 114.7 Est GFR ( Amer) 122.7 Est GFR (Non-Af Amer) 105.9 BUN/Creatinine Ratio 3.4 L Glucose 126 H Calcium 6.9 L Total Bilirubin 2.2 H AST 97 H ALT 43 Alkaline Phosphatase 148 H Ammonia 41.0 H Total Protein 6.6 Albumin 1.7 L Globulin 4.9 H Albumin/Globulin Ratio 0.3 L Medications Administered Clotrimazole (Mycelex) 10 mg BUCCAL [id number] [facility] Stop: 07/09/18 06:59 Last Admin: 07/01/18 12:42 Dose: 10 mg Documented by: [id number] Admin: 07/01/18 07:29 Dose: 10 mg Documented by: [id number] Admin: 06/30/18 22:36 Dose: 10 mg Documented by: [id number] Admin: 06/30/18 19:27 Dose: 10 mg Documented by: [id number] Admin: 06/30/18 15:43 Dose: 10 mg Documented by: [id number] Admin: 06/30/18 12:03 Dose: 10 mg Documented by: [id number] Admin: 06/30/18 07:44 Dose: 10 mg Documented by: [id number] Admin: 06/30/18 00:25 Dose: 10 mg Documented by: [id number] Admin: 06/29/18 20:03 Dose: 10 mg Documented by: [id number] Admin: 06/29/18 16:07 Dose: 10 mg Documented by: [id number] Admin: 06/29/18 13:14 Dose: 10 mg Documented by: [id number] Admin: 06/29/18 07:33 Dose: 10 mg Documented by: [id number] Folic Acid 1 mg/ Syringe 10 mls @ 5 mls/min IV QAM HUGH Stop: 07/29/18 08:59 Last Admin: 07/01/18 07:30 Dose: 5 mls/min Documented by: [id number] Admin: 06/30/18 07:45 Dose: 5 mls/min Documented by: [id number] Admin: 06/29/18 07:33 Dose: 5 mls/min Documented by: [id number] Pantoprazole Sodium 40 mg/ (Dextrose) 100 mls @ 20 mls/hr IV Q5H HUGH Stop: 07/29/18 04:29 Last Infusion: 07/01/18 12:59 Dose: 0 mg/hr, 0 mls/hr Documented by: [id number] Admin: 07/01/18 07:48 Dose: 8 mg/hr, 20 mls/hr Documented by: [id number] Infusion: 07/01/18 07:46 Dose: 0 mg/hr, 0 mls/hr Documented by: [id number] Admin: 07/01/18 02:34 Dose: 8 mg/hr, 20 mls/hr Documented by: [id number] Infusion: 07/01/18 02:34 Dose: 8 mg/hr, 20 mls/hr Documented by: [id number] Admin: 06/30/18 21:52 Dose: 8 mg/hr, 20 mls/hr Documented by: [id number] Infusion: 06/30/18 21:52 Dose: 8 mg/hr, 20 mls/hr Documented by: [id number] Admin: 06/30/18 17:24 Dose: 8 mg/hr, 20 mls/hr Documented by: [id number] Infusion: 06/30/18 16:05 Dose: 0 mg/hr, 0 mls/hr Documented by: [id number] Admin: 06/30/18 11:03 Dose: 8 mg/hr, 20 mls/hr Documented by: [id number] Infusion: 06/30/18 10:52 Dose: 0 mg/hr, 0 mls/hr Documented by: [id number] Infusion: 06/30/18 08:27 Dose: 8 mg/hr, 20 mls/hr Documented by: [id number] Infusion: 06/30/18 08:07 Dose: 0 mg/hr, 0 mls/hr Documented by: [id number] Admin: 06/30/18 05:28 Dose: 8 mg/hr, 20 mls/hr Documented by: [id number] Infusion: 06/30/18 05:25 Dose: 8 mg/hr, 20 mls/hr Documented by: [id number] Admin: 06/30/18 00:25 Dose: 8 mg/hr, 20 mls/hr Documented by: [id number] Infusion: 06/30/18 00:25 Dose: 8 mg/hr, 20 mls/hr Documented by: [id number] Admin: 06/29/18 19:28 Dose: 8 mg/hr, 20 mls/hr Documented by: [id number] Infusion: 06/29/18 19:28 Dose: 8 mg/hr, 20 mls/hr Documented by: [id number] Admin: 06/29/18 16:07 Dose: 8 mg/hr, 20 mls/hr Documented by: [id number] Infusion: 06/29/18 15:33 Dose: 8 mg/hr, 20 mls/hr Documented by: [id number] Admin: 06/29/18 10:33 Dose: 8 mg/hr, 20 mls/hr Documented by: [id number] Infusion: 06/29/18 10:18 Dose: 8 mg/hr, 20 mls/hr Documented by: [id number] Admin: 06/29/18 05:18 Dose: 8 mg/hr, 20 mls/hr Documented by: [id number] Thiamine HCl 100 mg/ Syringe 10 mls @ 2 mls/hr IV QAM HUGH Stop: 07/29/18 08:59 Last Admin: 07/01/18 07:30 Dose: 2 mls/hr Documented by: [id number] Admin: 06/30/18 07:46 Dose: 2 mls/hr Documented by: [id number] Admin: 06/29/18 07:33 Dose: 2 mls/hr Documented by: [id number] Potassium Chloride/Dextrose/Sod Cl (D5nss + 20meq Kcl) 20 meq in 1,000 mls @ 100 mls/hr IV .Q10H HUGH Stop: 07/29/18 04:29 Last Admin: 07/01/18 07:28 Dose: 100 mls/hr Documented by: [id number] Infusion: 07/01/18 07:28 Dose: 100 mls/hr Documented by: [id number] Admin: 06/30/18 21:52 Dose: 100 mls/hr Documented by: [id number] Infusion: 06/30/18 21:01 Dose: 100 mls/hr Documented by: [id number] Admin: 06/30/18 11:01 Dose: 100 mls/hr Documented by: [id number] Infusion: 06/30/18 10:52 Dose: 0 mls/hr Documented by: [id number] Infusion: 06/30/18 08:27 Dose: 100 mls/hr Documented by: [id number] Infusion: 06/30/18 08:06 Dose: 0 mls/hr Documented by: [id number] Admin: 06/30/18 00:26 Dose: 100 mls/hr Documented by: [id number] Infusion: 06/30/18 00:26 Dose: 100 mls/hr Documented by: [id number] Admin: 06/29/18 16:03 Dose: 100 mls/hr Documented by: [id number] Infusion: 06/29/18 15:19 Dose: 100 mls/hr Documented by: [id number] Admin: 06/29/18 05:19 Dose: 100 mls/hr Documented by: [id number] Diazepam 3 mg/ Syringe 0.6 mls @ 0.6 mls/min IV Q4H PRN PRN Reason: ALCOHOL WITHDRAWAL Stop: 07/29/18 11:59 Last Admin: 07/01/18 09:11 Dose: 0.6 mls/min Documented by: [id number] Admin: 07/01/18 04:16 Dose: 0.6 mls/min Documented by: [id number] Admin: 07/01/18 00:17 Dose: 0.6 mls/min Documented by: [id number] Admin: 06/30/18 19:27 Dose: 0.6 mls/min Documented by: [id number] Admin: 06/30/18 14:22 Dose: 0.6 mls/min Documented by: [id number] Admin: 06/30/18 09:09 Dose: 0.6 mls/min Documented by: [id number] Admin: 06/30/18 04:36 Dose: 0.6 mls/min Documented by: [id number] Admin: 06/30/18 00:30 Dose: 0.6 mls/min Documented by: [id number] Admin: 06/29/18 21:39 Dose: 0.6 mls/min Documented by: [id number] Admin: 06/29/18 17:03 Dose: 0.6 mls/min Documented by: [id number] Admin: 06/29/18 13:13 Dose: 0.6 mls/min Documented by: [id number] Ceftriaxone Sodium 1,000 mg/ (Dextrose) 50 mls @ 100 mls/hr IV DAILY HUGH Stop: 07/04/18 15:59 Last Infusion: 07/01/18 09:46 Dose: 0 mls/hr Documented by: [id number] Admin: 07/01/18 09:11 Dose: 100 mls/hr Documented by: [id number] Infusion: 06/30/18 08:17 Dose: 0 mls/hr Documented by: [id number] Admin: 06/30/18 07:46 Dose: 100 mls/hr Documented by: [id number] Infusion: 06/29/18 17:34 Dose: 0 mls/hr Documented by: [id number] Admin: 06/29/18 16:25 Dose: 100 mls/hr Documented by: [id number] Ioversol (Optiray 320 100ml) 93 ml IV ONCE PRN PRN Reason: Interaction Checking Stop: 07/02/18 23:55 Last Admin: 06/28/18 23:57 Dose: 93 ml Documented by: [id number] Magnesium Oxide (Mag-Ox) 400 mg PO BID HUGH Stop: 07/29/18 08:59 Last Admin: 07/01/18 07:30 Dose: 400 mg Documented by: [id number] Admin: 06/30/18 22:36 Dose: 400 mg Documented by: [id number] Admin: 06/30/18 07:45 Dose: 400 mg Documented by: [id number] Admin: 06/29/18 20:13 Dose: 400 mg Documented by: [id number] Admin: 06/29/18 10:48 Dose: Not Given Documented by: [id number] Miscellaneous (Remove Nicoderm Patch) 1 ea N/A HS [facility] Stop: 07/29/18 20:59 Last Admin: 06/30/18 22:36 Dose: 1 ea Documented by: [id number] Admin: 06/29/18 21:39 Dose: 1 ea Documented by: [id number] Nicotine (Nicoderm Cq) 14 mg TD QAM HUGH Stop: 07/29/18 16:14 Last Admin: 07/01/18 07:30 Dose: 14 mg Documented by: [id number] Admin: 06/30/18 07:45 Dose: 14 mg Documented by: [id number] Admin: 06/29/18 17:02 Dose: 14 mg Documented by: [id number] Ondansetron HCl (Zofran) 4 mg IV Q6H PRN PRN Reason: Nausea Stop: 07/29/18 05:01 Last Admin: 07/01/18 04:16 Dose: 4 mg Documented by: [id number] Admin: 06/30/18 19:27 Dose: 4 mg Documented by: [id number] Admin: 06/30/18 10:42 Dose: 4 mg Documented by: [id number] Admin: 06/30/18 04:36 Dose: 4 mg Documented by: [id number] Admin: 06/29/18 20:20 Dose: 4 mg Documented by: [id number] Admin: 06/29/18 13:13 Dose: 4 mg Documented by: [id number] (1) Alcohol withdrawal Complication of substance-induced condition: with unspecified complication Qualified Code(s): F10.239 - Alcohol dependence with withdrawal, unspecified (2) Neutropenia Neutropenia type: unspecified Qualified Code(s): D70.9 - Neutropenia, unspecified
--- NOTE | 2018-07-01 17:31 | Progress Note ---
DATE: 07/01/2018 The patient is entering the end of her third day of alcohol withdrawal and her symptoms should be improving at this point. She continues to have tremors, which I believe are probably chronic and not necessarily indicative of withdrawal. She has multiple complaints including back pain, burning, acidy feeling in the anal area. She is hungry. She is anxious, tearful. She reports that she is willing to go to rehab, but states that the clinical case manager has not been by to talk to her about it yet. PHYSICAL EXAMINATION ABDOMEN: Soft and nontender. EXTREMITIES: Showed a resting tremor. IMPRESSION: The patient has alcohol cirrhosis with chronic hepatitis C, continued use of alcohol. She is nearing the end of her alcohol withdrawal. I would recommend that serious consideration be made into getting into her inpatient rehabilitation. I plan on advancing her diet today to a regular diet. I do not plan on pursuing an EGD at this point.
[2018-07-02] MEDS: PANTOprazole 40 MG in DEXTROSE 5% 100 ML IV SCH ×4 (00:03→14:36)
[2018-07-02] MEDS: DIAZEPAM IV PRN ×2 (02:33→08:36)
[2018-07-02] MEDS: D5NSS + 20MEQ KCL 20 MEQ/1,000 ML BAG IV SCH ×2 (04:54→14:36)
[2018-07-02 05:50] LABS: INR 2.1 (0.9-1.1); Prothrombin Time 20.6 Seconds (9.0-12.0)
[2018-07-02 06:07] LABS: Hematocrit (blood only) 25.4 % (37-47); Hemoglobin 8.6 g/dL (12.0-16.0); Mean Corpuscular Hgb Conc 33.9 g/dL (32-36); Mean Corpuscular Volume 97.7 fL (80-100); Platelet Count 28 K/uL (130-400); RDW Coefficient of Variation 17.9 % (11.5-14.5); RDW Standard Deviation 64.2 fL (36.4-46.3); White Blood Count 1.83 K/uL (4.8-10.8)
[2018-07-02 06:13] LABS: Albumin Level 1.7 gm/dl (3.4-5.0); Calcium 7.2 mg/dl (8.5-10.1); Creatinine Clr Calc Pharmacy 101.6 ml/min; Est GFR (African American) 117.9; Est GFR (Non-African American) 101.7; Potassium 3.8 mmol/L (3.5-5.1)
[2018-07-02 06:16] LABS: Albumin Globulin Ratio 0.3 (0.9-2); Bilirubin,Total 1.8 mg/dl (0.2-1); Total Protein 6.7 gm/dl (6.4-8.2)
[2018-07-02] MEDS: ONDANSETRON INJ 2 MG/ML 2 ML VIAL IV PRN ×2 (06:18→12:51)
[2018-07-02] MEDS: CLOTRIMAZOLE 10 MG TROCHE BUCCAL SCH ×5 (07:42→22:41)
[2018-07-02 08:11] LABS: Eosinophils # (auto) 0.08 K/uL (0-0.5); Eosinophils % (auto) 4.4 %; Lymphocytes # (auto) 0.84 K/uL (1.2-3.4); Lymphocytes % (auto) 45.9 %; Monocytes # (auto) 0.16 K/uL (0.11-0.59); Monocytes % (auto) 8.7 %; Neutrophils # (auto) 0.75 K/uL (1.4-6.5)
[2018-07-02] MEDS: cefTRIAXone SODIUM 1,000 MG in DEXTROSE 5% 50 ML IV SCH (08:34)
[2018-07-02] MEDS: THIAMINE HCL 100 MG in SYRINGE 9 ML IV SCH (08:34)
[2018-07-02] MEDS: FOLIC ACID 1 MG in SYRINGE 9.8 ML IV SCH (08:34)
[2018-07-02] MEDS: NICOTINE 14 MG/24 HR PATCH TD SCH (08:35)
[2018-07-02] MEDS: MAGNESIUM OXIDE 400 MG TAB PO SCH ×2 (08:35→21:09)
--- NOTE | 2018-07-02 10:54 | Family Medicine Progress Note ---
Date of Service July 02, 2018 Assessment & Plan (1) Hematemesis with nausea: Ms. Barros is a 47 year old female with a history of ETOH abuse, ETOH cirrhosis, ETOH-related seizures, pancreatitis, and pancytopenia related to cirrhosis who presents to the emergency department due to abdominal pain and several episodes of hematemesis that occurred at approximately 8 o'clock this evening. ED course: Patient received 1 g of calcium gluconate, 10 mg of IV metoclopramide, 20 mg of IV famotidine, 2 mg of Ativan, 1 g of magnesium sulfate, 1 L normal saline bolus, 1 banana bag, 40 mg IV pantoprazole, and 4 mg IV Zofran. -was admitted to telemetry and will transfer to med/surg today, discontinue lead care manager -no hematemesis since presentation to the hospital -CT abdomen and pelvis showed nonspecific edema around gastroduodenal area -> liver disease vs. PUD/gastroduodenitis -CT scan findings, hx of hematemesis and epigastric tenderness suggestive of PUD/gastritis -GI consulted -Pt must stop drinking -Continue PPI drip. Does not recommend need for EGD. Agree with plan. 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 -On IVF - D5 NS with 20 mEq at 100mls/hr. -Replete e- as indicated DVT Prophylaxis: contraindicated in setting of hematemesis, low platelets and INR of 1.9 Code status: FULL Disposition: admit to telemetry F/E/N: Regular diet monitor e- (2) Alcohol withdrawal: -Patient received a banana bag in the emergency department, as well as 2 mg of IV Ativan -on admit, patient tremulous despite having an alcohol level of 272.4 -Previous orders on admit, AWSS protocol and 3mg of valium IV ordered q4h prn withdrawal symptoms - will change to q6h PRN. Tremors have improved. Patient is requesting additional doses but need to start taper. Ativan PRN discontinued on transfer. Believe request for benzos driven by dopamine reward system. -1mg IV folic acid and 100mg IV thiamine ordered QAM -On 07/02/18, this morning still tremulous but improved, denies hallucinations but states are improving. Yesterday, received 5 doses of Diazepam 3mg total. -She is stable and will transfer to med/surg, discontinue lead care manager (3) Liver cirrhosis, alcoholic: -Secondary to alcohol abuse and hepatitis C -Hold metoprolol tartrate as no evidence of esophageal varices and prior EGD, unsure as to why patient is on this -LFTs are similar to prior presentations, with a INR of 2.1, total bilirubin 1.8 AST trending down of 141->135->118->97->81 today ALT within normal limits during stay with 41 today alk phos of 155 -Previous Maddrey's Score of 42 - no indication for glucocorticoid therapy -Labs stable at patient's baseline, consistent AST:ALT ratio 2:1 consistent with mitochondrial toxicity from alcohol abuse, same as from previous admission. -Previously, Mary was wishing to go to rehab upon discharge and expressed desire to go with sister who is alcoholic. Now she states she might want home health care, will work with case management. (4) Hypocalcemia: -Received calcium gluconate in the emergency department for calcium level of 6.7, (2 days ago) 6.6 corrected is 8.34. - 06/30/18 received Calcium gluconate 10% 1,000mg x1. Yesterday, improved to 6.9 with corrected is 8.74 and within normal limits. Today corrected calcium of 9.04 and within normal limits. -Trend electrolytes (5) Hypomagnesemia: -Previously Given 4 g of magnesium sulfate, am labs showed 1.6 on 06/28/18 -continue home magnesium oxide supplementation (6) Seizures: -Patient has a history of seizures related to alcohol withdrawal, and reports having had seizures prior to admission -Seizure precautions, continue to monitor -No seizure activity/episodes noted during admission (7) Pancreatitis: Clinical picture not consistent with pancreatitis, lipase normal at 292 and not 3x the upper limit to consider positive Although mild edema with trace fluid about the anterior pararenal space, lipase level excludes mild acute pancreatitis. (8) Neutropenia: History of chronic pancytopenia WBC 1.83 today which appears consistent with previous recent labwork. Does appear to be worsening since November 2017, most likely to EtOH abuse. - Previous labs show chronic neutropenia (9) Thrombocytopenia: Chronic problem On admit 42, This morning's value 28. No acute signs of bleeding. Has had low values in the 20s previously on several occasions. 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 Will continue to monitor, if drops lower may consider platelet transfusion to prevent spontaneous intracranial hemmorhage. (10) Tobacco abuse: -nicotine patch provided -smoking cessation provided (11) Hepatitis C: (12) Oral thrush: -nystatin on backorder, will treat with clotrimazole x7 days (Day 4/7) -likely secondary to chronic neutropenia (13) Dysuria: -Previous U/A suggests infection but not clean catch and was started on Rocephin pending cx results -Culture results today are positive for E. coli >100,000 with sensitivities showing dowling-sensitive. -Discontinue with Rocephin, treated adequately with 4 days of IV antibiotics. (14) Pancytopenia: -labs similar to previous admissions -> On admission noted WBC of 3.17, Hgb of 9.5, Platelet count of 42 -3/5, WBC 1.74, Hgb 8.5, platelet 26 -Today WBC 1.83, Hgb 8.6, Plt 28 -No signs of GI bleed -has had a bone marrow biopsy in 2014 which was unremarkable. Pancytopenia deemed to be secondary to nutritional insufficiency, liver failure, EtOH mitrochondrial toxicity of bone marrow. -Will continue to monitor Supervising Physician Co-Signing Physician Notes Patient seen and examined with the resident. Agree with history, physical exam, assessment and plan with the following updates/corrections: 47yo F w/ hx of HCV and alcoholic cirrhosis who presented for hematemesis. Resting comfortably on my exam. Reports tremors and continued abdominal pain and back pain for which she requests more diazepam. 1) Hematemesis - None observed inpatient. Hgb stable ~8.5. - Trend hgb - Transition PPI gtt to BID - Thiamine, folate - Per GI note from 06/30, appears that it is unlikely they are going to do an EGD inpatient. Will work on rehab. 2) Thrombocytopenia - Platelets usually range from 25-100. Seem to drop during acute illness. - Plt down to 25 on 06/30 & 07/01. - Admitted for hematemesis, but no signs of bleeding while inpatient. - Trend hgb and vitals; if stable, will transfuse for plt < 10k; however, if signs of bleeding, will transfuse for plt < 50k. 3) Alcohol withdrawal - Current GUNNAR scores are 3-4. May need to scale back benzo as she is getting frequent dosing for questionable withdrawal. - Diazepam PRN 4) Cirrhosis - Due to untreated HCV and alcohol abuse - Counseled for alcohol cessation - Reported she would go to rehab, but now questioning this Subjective Mary reports that tremors have improved today but are still present. She denies hallucinations. She reports feeling "gassy." She tolerated her breakf ast this morning without difficulty. No acute events reported overnight. Physical Exam Vital Signs (Past 24 Hours): Last Vital Signs Temp 36.8 C 07/02/18 07:10 Pulse 93 H 07/02/18 07:10 Resp 18 07/02/18 07:10 BP 113/82 07/02/18 07:10 Pulse Ox 99 07/02/18 07:10 Constitutional: well developed, cooperative and comfortable Eyes: + anicteric sclerae and EOM intact bilaterally Neck: normal visual inspection Respiratory: normal respiratory effort, lungs clear to auscultation Cardiovascular: RRR, no murmur, no edema Gastrointestinal (Abdomen): Inspection/Auscultation: normal bowel sounds Percussion/Palpation: + abdomen tender (upper abdominal without rebound) and abdomen soft; no guarding Musculoskeletal: Head/Neck/Chest: normocephalic and head atraumatic Extremities: extremities normal to inspection No CVA tenderness bilaterally. Skin: no rashes, warm and dry Neurologic: moves all extremities and awake Motor/Sensory: + tremor (generalized) Psychiatric: Orientation: alert Eye Contact: good eye contact Motor Behavior: + tremor (generalized) Affect: + anxious affect Results & Data Laboratory Results Laboratory Results - last 24 hr 07/02/18 07/02/18 07/02/18 05:17 05:17 05:17 WBC 1.83 L RBC 2.60 L Hgb 8.6 L Hct 25.4 L MCV 97.7 MCH 33.1 MCHC 33.9 RDW Std Deviation 64.2 H RDW Coeff of Michelle 17.9 H Plt Count 28 L* Immature Gran % (Auto) 0.0 Neut % (Auto) 41.0 Lymph % (Auto) 45.9 Ross % (Auto) 8.7 Eos % (Auto) 4.4 Baso % (Auto) 0.0 Immature Gran # (Auto) 0.00 Neut # (Auto) 0.75 L* Lymph # (Auto) 0.84 L Ross # (Auto) 0.16 Eos # (Auto) 0.08 Baso # (Auto) 0.00 PT 20.6 H INR 2.1 H Sodium 138 Potassium 3.8 Chloride 107 Carbon Dioxide 25 Anion Gap 6.0 BUN 1 L Creatinine 0.70 Est Cr Clr Drug Dosing 101.6 Est GFR ( Amer) 117.9 Est GFR (Non-Af Amer) 101.7 BUN/Creatinine Ratio 2.0 L Glucose 109 H Calcium 7.2 L Total Bilirubin 1.8 H AST 81 H ALT 41 Alkaline Phosphatase 155 H Ammonia Total Protein 6.7 Albumin 1.7 L Globulin 5.0 H Albumin/Globulin Ratio 0.3 L 07/02/18 05:17 WBC RBC Hgb Hct MCV MCH MCHC RDW Std Deviation RDW Coeff of Michelle Plt Count Immature Gran % (Auto) Neut % (Auto) Lymph % (Auto) Ross % (Auto) Eos % (Auto) Baso % (Auto) Immature Gran # (Auto) Neut # (Auto) Lymph # (Auto) Ross # (Auto) Eos # (Auto) Baso # (Auto) PT INR Sodium Potassium Chloride Carbon Dioxide Anion Gap BUN Creatinine Est Cr Clr Drug Dosing Est GFR ( Amer) Est GFR (Non-Af Amer) BUN/Creatinine Ratio Glucose Calcium Total Bilirubin AST ALT Alkaline Phosphatase Ammonia 22.0 Total Protein Albumin Globulin Albumin/Globulin Ratio Medications Administered Clotrimazole (Mycelex) 10 mg BUCCAL [id number] [facility] Stop: 07/09/18 06:59 Last Admin: 07/02/18 07:42 Dose: 10 mg Documented by: [id number] Admin: 07/01/18 22:23 Dose: 10 mg Documented by: [id number] Admin: 07/01/18 18:59 Dose: 10 mg Documented by: [id number] Admin: 07/01/18 15:13 Dose: 10 mg Documented by: [id number] Admin: 07/01/18 12:42 Dose: 10 mg Documented by: [id number] Admin: 07/01/18 07:29 Dose: 10 mg Documented by: [id number] Admin: 06/30/18 22:36 Dose: 10 mg Documented by: [id number] Admin: 06/30/18 19:27 Dose: 10 mg Documented by: [id number] Admin: 06/30/18 15:43 Dose: 10 mg Documented by: [id number] Admin: 06/30/18 12:03 Dose: 10 mg Documented by: [id number] Admin: 06/30/18 07:44 Dose: 10 mg Documented by: [id number] Admin: 06/30/18 00:25 Dose: 10 mg Documented by: [id number] Admin: 06/29/18 20:03 Dose: 10 mg Documented by: [id number] Admin: 06/29/18 16:07 Dose: 10 mg Documented by: [id number] Admin: 06/29/18 13:14 Dose: 10 mg Documented by: [id number] Admin: 06/29/18 07:33 Dose: 10 mg Documented by: [id number] Folic Acid 1 mg/ Syringe 10 mls @ 5 mls/min IV QAM [facility] Stop: 07/29/18 08:59 Last Admin: 07/02/18 08:34 Dose: 5 mls/min Documented by: [id number] Admin: 07/01/18 07:30 Dose: 5 mls/min Documented by: [id number] Admin: 06/30/18 07:45 Dose: 5 mls/min Documented by: [id number] Admin: 06/29/18 07:33 Dose: 5 mls/min Documented by: [id number] Pantoprazole Sodium 40 mg/ (Dextrose) 100 mls @ 20 mls/hr IV Q5H [facility] Stop: 07/29/18 04:29 Last Admin: 07/02/18 08:51 Dose: 8 mg/hr, 20 mls/hr Documented by: [id number] Infusion: 07/02/18 08:51 Dose: 8 mg/hr, 20 mls/hr Documented by: [id number] Admin: 07/02/18 04:54 Dose: 8 mg/hr, 20 mls/hr Documented by: [id number] Infusion: 07/02/18 04:54 Dose: 8 mg/hr, 20 mls/hr Documented by: [id number] Admin: 07/02/18 00:03 Dose: 8 mg/hr, 20 mls/hr Documented by: [id number] Infusion: 07/01/18 23:56 Dose: 8 mg/hr, 20 mls/hr Documented by: [id number] Infusion: 07/01/18 22:52 Dose: 8 mg/hr, 20 mls/hr Documented by: [id number] Admin: 07/01/18 18:56 Dose: 8 mg/hr, 20 mls/hr Documented by: [id number] Infusion: 07/01/18 18:36 Dose: 8 mg/hr, 20 mls/hr Documented by: [id number] Admin: 07/01/18 13:36 Dose: 8 mg/hr, 20 mls/hr Documented by: [id number] Infusion: 07/01/18 12:59 Dose: 0 mg/hr, 0 mls/hr Documented by: [id number] Admin: 07/01/18 07:48 Dose: 8 mg/hr, 20 mls/hr Documented by: [id number] Infusion: 07/01/18 07:46 Dose: 0 mg/hr, 0 mls/hr Documented by: [id number] Admin: 07/01/18 02:34 Dose: 8 mg/hr, 20 mls/hr Documented by: [id number] Infusion: 07/01/18 02:34 Dose: 8 mg/hr, 20 mls/hr Documented by: [id number] Admin: 06/30/18 21:52 Dose: 8 mg/hr, 20 mls/hr Documented by: [id number] Infusion: 06/30/18 21:52 Dose: 8 mg/hr, 20 mls/hr Documented by: [id number] Admin: 06/30/18 17:24 Dose: 8 mg/hr, 20 mls/hr Documented by: [id number] Infusion: 06/30/18 16:05 Dose: 0 mg/hr, 0 mls/hr Documented by: [id number] Admin: 06/30/18 11:03 Dose: 8 mg/hr, 20 mls/hr Documented by: [id number] Infusion: 06/30/18 10:52 Dose: 0 mg/hr, 0 mls/hr Documented by: [id number] Infusion: 06/30/18 08:27 Dose: 8 mg/hr, 20 mls/hr Documented by: [id number] Infusion: 06/30/18 08:07 Dose: 0 mg/hr, 0 mls/hr Documented by: [id number] Admin: 06/30/18 05:28 Dose: 8 mg/hr, 20 mls/hr Documented by: [id number] Infusion: 06/30/18 05:25 Dose: 8 mg/hr, 20 mls/hr Documented by: [id number] Admin: 06/30/18 00:25 Dose: 8 mg/hr, 20 mls/hr Documented by: [id number] Infusion: 06/30/18 00:25 Dose: 8 mg/hr, 20 mls/hr Documented by: [id number] Admin: 06/29/18 19:28 Dose: 8 mg/hr, 20 mls/hr Documented by: [id number] Infusion: 06/29/18 19:28 Dose: 8 mg/hr, 20 mls/hr Documented by: [id number] Admin: 06/29/18 16:07 Dose: 8 mg/hr, 20 mls/hr Documented by: [id number] Infusion: 06/29/18 15:33 Dose: 8 mg/hr, 20 mls/hr Documented by: [id number] Admin: 06/29/18 10:33 Dose: 8 mg/hr, 20 mls/hr Documented by: [id number] Infusion: 06/29/18 10:18 Dose: 8 mg/hr, 20 mls/hr Documented by: [id number] Admin: 06/29/18 05:18 Dose: 8 mg/hr, 20 mls/hr Documented by: [id number] Thiamine HCl 100 mg/ Syringe 10 mls @ 2 mls/hr IV QAM HUGH Stop: 07/29/18 08:59 Last Admin: 07/02/18 08:34 Dose: 2 mls/hr Documented by: [id number] Admin: 07/01/18 07:30 Dose: 2 mls/hr Documented by: [id number] Admin: 06/30/18 07:46 Dose: 2 mls/hr Documented by: [id number] Admin: 06/29/18 07:33 Dose: 2 mls/hr Documented by: [id number] Potassium Chloride/Dextrose/Sod Cl (D5nss + 20meq Kcl) 20 meq in 1,000 mls @ 100 mls/hr IV .Q10H [facility] Stop: 07/29/18 04:29 Last Admin: 07/02/18 04:54 Dose: 100 mls/hr Documented by: [id number] Infusion: 07/02/18 04:54 Dose: 100 mls/hr Documented by: [id number] Infusion: 07/01/18 22:52 Dose: 100 mls/hr Documented by: [id number] Admin: 07/01/18 18:57 Dose: 100 mls/hr Documented by: [id number] Infusion: 07/01/18 17:28 Dose: 100 mls/hr Documented by: [id number] Admin: 07/01/18 07:28 Dose: 100 mls/hr Documented by: [id number] Infusion: 07/01/18 07:28 Dose: 100 mls/hr Documented by: [id number] Admin: 06/30/18 21:52 Dose: 100 mls/hr Documented by: [id number] Infusion: 06/30/18 21:01 Dose: 100 mls/hr Documented by: [id number] Admin: 06/30/18 11:01 Dose: 100 mls/hr Documented by: [id number] Infusion: 06/30/18 10:52 Dose: 0 mls/hr Documented by: [id number] Infusion: 06/30/18 08:27 Dose: 100 mls/hr Documented by: [id number] Infusion: 06/30/18 08:06 Dose: 0 mls/hr Documented by: [id number] Admin: 06/30/18 00:26 Dose: 100 mls/hr Documented by: [id number] Infusion: 06/30/18 00:26 Dose: 100 mls/hr Documented by: [id number] Admin: 06/29/18 16:03 Dose: 100 mls/hr Documented by: [id number] Infusion: 06/29/18 15:19 Dose: 100 mls/hr Documented by: [id number] Admin: 06/29/18 05:19 Dose: 100 mls/hr Documented by: [id number] Ioversol (Optiray 320 100ml) 93 ml IV ONCE PRN PRN Reason: Interaction Checking Stop: 07/02/18 23:55 Last Admin: 06/28/18 23:57 Dose: 93 ml Documented by: [id number] Magnesium Oxide (Mag-Ox) 400 mg PO BID HUGH Stop: 07/29/18 08:59 Last Admin: 07/02/18 08:35 Dose: 400 mg Documented by: [id number] Admin: 07/01/18 21:24 Dose: 400 mg Documented by: [id number] Admin: 07/01/18 07:30 Dose: 400 mg Documented by: [id number] Admin: 06/30/18 22:36 Dose: 400 mg Documented by: [id number] Admin: 06/30/18 07:45 Dose: 400 mg Documented by: [id number] Admin: 06/29/18 20:13 Dose: 400 mg Documented by: [id number] Admin: 06/29/18 10:48 Dose: Not Given Documented by: [id number] Miscellaneous (Remove Nicoderm Patch) 1 ea N/A HS [facility] Stop: 07/29/18 20:59 Last Admin: 07/01/18 21:23 Dose: 1 ea Documented by: [id number] Admin: 06/30/18 22:36 Dose: 1 ea Documented by: [id number] Admin: 06/29/18 21:39 Dose: 1 ea Documented by: [id number] Nicotine (Nicoderm Cq) 14 mg TD QAM [facility] Stop: 07/29/18 16:14 Last Admin: 07/02/18 08:35 Dose: 14 mg Documented by: [id number] Admin: 07/01/18 07:30 Dose: 14 mg Documented by: [id number] Admin: 06/30/18 07:45 Dose: 14 mg Documented by: [id number] Admin: 06/29/18 17:02 Dose: 14 mg Documented by: [id number] Ondansetron HCl (Zofran) 4 mg IV Q6H PRN PRN Reason: Nausea Stop: 07/29/18 05:01 Last Admin: 07/02/18 06:18 Dose: 4 mg Documented by: [id number] Admin: 07/01/18 21:16 Dose: 4 mg Documented by: [id number] Admin: 07/01/18 14:52 Dose: 4 mg Documented by: [id number] Admin: 07/01/18 04:16 Dose: 4 mg Documented by: [id number] Admin: 06/30/18 19:27 Dose: 4 mg Documented by: [id number] Admin: 06/30/18 10:42 Dose: 4 mg Documented by: [id number] Admin: 06/30/18 04:36 Dose: 4 mg Documented by: [id number] Admin: 06/29/18 20:20 Dose: 4 mg Documented by: [id number] Admin: 06/29/18 13:13 Dose: 4 mg Documented by: [id number] (1) Alcohol withdrawal Complication of substance-induced condition: with unspecified complication Qualified Code(s): F10.239 - Alcohol dependence with withdrawal, unspecified (2) Neutropenia Neutropenia type: unspecified Qualified Code(s): D70.9 - Neutropenia, unspecified
[2018-07-02] MEDS: diazePAM 2 MG TABLET PO PRN ×3 (12:51→21:09)
[2018-07-02] MEDS ORDERED: DIAZEPAM IV PRN (14:30)
[2018-07-02] MEDS: PANTOprazole 40 MG in SYRINGE 0 ML IV SCH ×2 (21:23→22:39)
[2018-07-03] MEDS: ONDANSETRON INJ 2 MG/ML 2 ML VIAL IV PRN ×2 (05:02→18:24)
[2018-07-03] MEDS: diazePAM 2 MG TABLET PO PRN ×5 (05:02→23:39)
[2018-07-03] MEDS: CLOTRIMAZOLE 10 MG TROCHE BUCCAL SCH ×5 (05:37→23:39)
[2018-07-03 08:09] LABS: INR 2.2 (0.9-1.1); Prothrombin Time 21.4 Seconds (9.0-12.0)
[2018-07-03 08:32] LABS: Hematocrit (blood only) 25.9 % (37-47); Hemoglobin 8.7 g/dL (12.0-16.0); Mean Corpuscular Hgb Conc 33.6 g/dL (32-36); Mean Corpuscular Volume 98.5 fL (80-100); Platelet Count 35 K/uL (130-400); RDW Standard Deviation 67.5 fL (36.4-46.3); Red Blood Count 2.63 M/uL (4.2-5.4); White Blood Count 1.89 K/uL (4.8-10.8)
[2018-07-03 08:32] LABS: Albumin Level 1.8 gm/dl (3.4-5.0); Calcium 7.8 mg/dl (8.5-10.1); Creatinine Clr Calc Pharmacy 122.6 ml/min; Est GFR (African American) 125.4; Est GFR (Non-African American) 108.2; Potassium 3.7 mmol/L (3.5-5.1)
[2018-07-03 08:34] LABS: Anisocytosis Present; Basophils # (auto) 0.01 K/uL (0-0.2); Basophils % (auto) 0.5 %; Eosinophils # (auto) 0.13 K/uL (0-0.5); Eosinophils % (auto) 6.9 %; Lymphocytes # (auto) 0.99 K/uL (1.2-3.4); Lymphocytes % (auto) 52.4 %; Monocytes # (auto) 0.21 K/uL (0.11-0.59); Monocytes % (auto) 11.1 %; Neutrophils # (auto) 0.55 K/uL (1.4-6.5); Neutrophils % (auto) 29.1 %
[2018-07-03 08:35] LABS: Albumin Globulin Ratio 0.4 (0.9-2); Bilirubin,Total 1.9 mg/dl (0.2-1); Globulin 4.7 gm/dl (2.5-4.0); Total Protein 6.5 gm/dl (6.4-8.2)
[2018-07-03] MEDS: MAGNESIUM OXIDE 400 MG TAB PO SCH ×2 (08:58→19:22)
[2018-07-03] MEDS: FOLIC ACID 1 MG in SYRINGE 9.8 ML IV SCH (08:58)
[2018-07-03] MEDS: NICOTINE 14 MG/24 HR PATCH TD SCH (08:58)
[2018-07-03] MEDS: THIAMINE HCL 100 MG in SYRINGE 9 ML IV SCH (08:59)
[2018-07-03] MEDS: PANTOprazole 40 MG in SYRINGE 0 ML IV SCH ×2 (08:59→19:22)
--- NOTE | 2018-07-03 14:03 | Family Medicine Progress Note ---
Date of Service July 03, 2018 Assessment & Plan (1) Hematemesis with nausea: Ms. Barros is a 47 year old female with a history of ETOH abuse, ETOH cirrhosis, ETOH-related seizures, pancreatitis, and pancytopenia related to cirrhosis who presents to the emergency department due to abdominal pain and several episodes of hematemesis that occurred at approximately 8 o'clock this evening. ED course: Patient received 1 g of calcium gluconate, 10 mg of IV metoclopramide, 20 mg of IV famotidine, 2 mg of Ativan, 1 g of magnesium sulfate, 1 L normal saline bolus, 1 banana bag, 40 mg IV pantoprazole, and 4 mg IV Zofran. -was admitted to telemetry and currently on med/surg -no hematemesis since presentation to the hospital -06/28/18 - CT abdomen and pelvis showed nonspecific edema around gastroduodenal area -> liver disease vs. PUD/gastroduodenitis -CT scan findings, hx of hematemesis and epigastric tenderness suggestive of PUD/gastritis -GI consulted -Pt must stop drinking -Continue PPI drip. Does not recommend need for EGD. Agree with plan. 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 -Not currently on IV fluids -Replete e- as indicated -Discussed need for inpatient rehab with patient. She expressed desire earlier this week of wanting rehab. But, now wants to go home. Suspect she is feeling better. Concern she will go home and continue to drink. DVT Prophylaxis: contraindicated in setting of hematemesis, low platelets and constantly elevated INR of 1.9 Code status: FULL Disposition: admit to telemetry F/E/N: Regular diet monitor e- (2) Alcohol withdrawal: -On admit, Patient received a banana bag in the emergency department, as well as 2 mg of IV Ativan, tremulous despite having an alcohol level of 272.4. AWSS protocol and 3mg of valium IV ordered q4h prn withdrawal symptoms. -Yesterday started to taper benzos and changed from IV to PO and q4hr to q6hr. Still PRN but patient's requests are consistent to use when available. Believe request for benzos driven by dopamine reward system. Unfortunately, consistently attempts to negotiate for further benzos or pain meds, but discussed with patient not medically indicated. -Continue with 1mg IV folic acid and 100mg IV thiamine (3) Liver cirrhosis, alcoholic: -Secondary to alcohol abuse and hepatitis C -Hold metoprolol tartrate as no evidence of esophageal varices and prior EGD, unsure as to why patient is on this. -LFTs are similar to prior presentations, with a INR of 2.2 today and consistently 1.9-2.2 consistent with liver disease and lack of clotting factors, total bilirubin 1.9 without acute changes. AST trending down of 141->135->118->97->81->65 today ALT within normal limits during stay with 36 today alk phos of 139 -On admit, had Maddrey's Score of 42 - no indication for glucocorticoid therapy -Labs stable at patient's baseline, consistent AST:ALT ratio 2:1 consistent with mitochondrial toxicity from alcohol abuse, same as from previous admission. (4) Hypocalcemia: -Received calcium gluconate in the emergency department for calcium level of 6.7 - 06/30/18 received Calcium gluconate 10% 1,000mg x1 which, improved to 6.9 with corrected is 8.74 and within normal limits. Yesterday, corrected calcium of 9.04 and within normal limits. Today, within normal limits as well. -Trend electrolytes (5) Hypomagnesemia: -Previously Given 4 g of magnesium sulfate, am labs showed 1.6 on 06/28/18 -continue home magnesium oxide supplementation (6) Seizures: -Patient has a history of seizures related to alcohol withdrawal, and reports having had seizures prior to admission -Seizure precautions, continue to monitor -No seizure activity/episodes noted during admission (7) Pancreatitis: Clinical picture not consistent with pancreatitis, lipase normal at 292 and not 3x the upper limit to consider positive Although mild edema with trace fluid about the anterior pararenal space, lipase level excludes mild acute pancreatitis. (8) Neutropenia: History of chronic pancytopenia WBC 1.89 today which appears consistent with previous recent labwork. Does appear to be worsening since November 2017, most likely to EtOH abuse. - Previous labs show chronic neutropenia (9) Thrombocytopenia: Chronic problem On admit 42, This morning's value 35. No acute signs of bleeding. Has had low values in the 20s previously on several occasions. 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 Will continue to monitor, if drops lower may consider platelet transfusion to prevent spontaneous intracranial hemmorhage. (10) Tobacco abuse: -nicotine patch provided -smoking cessation provided (11) Hepatitis C: (12) Oral thrush: -nystatin on backorder, will treat with clotrimazole x7 days (Day 5/7) -likely secondary to chronic neutropenia (13) Dysuria: -Previous U/A suggests infection but not clean catch and was started on Rocephin pending cx results -Culture results today are positive for E. coli >100,000 with sensitivities showing dowling-sensitive. -Discontinue with Rocephin, treated adequately with 4 days of IV antibiotics. (14) Pancytopenia: -labs similar to previous admissions -> On admission noted WBC of 3.17, Hgb of 9.5, Platelet count of 42 -3/5, WBC 1.74, Hgb 8.5, platelet 26 -3/6 WBC 1.83, Hgb 8.6, Plt 28 -3/7 WBC 1.89, Hgb 8.7, Plt 35 - values are improving but low values are most likely patient's new baseline. Hopefully with EtOH cessation, patient can recover. -No signs of GI bleed -has had a bone marrow biopsy in 2014 which was unremarkable. Pancytopenia deemed to be secondary to nutritional insufficiency, liver failure, EtOH mitrochondrial toxicity of bone marrow. -Will continue to monitor Supervising Physician Co-Signing Physician Notes Patient seen and examined with the resident. Agree with history, physical exam, assessment and plan with the following updates/corrections: 47yo F w/ hx of HCV and alcoholic cirrhosis who presented for hematemesis. Resting comfortably on my exam. Reports tremors and continued abdominal pain and back pain for which she requests more diazepam. 1) Hematemesis - None observed inpatient. Hgb stable ~8.5. - Trend hgb - Transitioned PPI gtt to BID - Thiamine, folate - Tapering benzo as her withdrawal is diminishing. 2) Thrombocytopenia - Platelets usually range from 25-100. Seem to drop during acute illness. - Plt down to 25 on 06/30 & 07/01. Up to 35 on 07/03. - Admitted for hematemesis, but no signs of bleeding while inpatient. - Trend hgb and vitals; if stable, will transfuse for plt < 10k; however, if signs of bleeding, will transfuse for plt < 50k. 3) Alcohol withdrawal - Current GUNNAR scores are 3-4. Scaling back benzo as she is getting frequent dosing for questionable withdrawal. - Diazepam PRN 4) Cirrhosis - Due to untreated HCV and alcohol abuse - Counseled for alcohol cessation - Reported she would go to rehab, but now saying she will go home. Cesar Hernandez notes that she would like to return home on discharge with home health services. She notes that then she will decide on going to inpatient rehab. She complains of same chronic upper abdominal pain. No acute events overnight. Does not report hallucinations. No seizure activity. Physical Exam Vital Signs (Past 24 Hours): Last Vital Signs Temp 36.9 C 07/03/18 08:21 Pulse 54 L 07/03/18 08:21 Resp 20 07/03/18 08:21 BP 103/67 07/03/18 08:21 Pulse Ox 91 07/03/18 08:21 Constitutional: well developed, cooperative and comfortable Eyes: + anicteric sclerae and EOM intact bilaterally Neck: normal visual inspection Respiratory: normal respiratory effort, lungs clear to auscultation Cardiovascular: RRR, no murmur, no edema Gastrointestinal (Abdomen): Inspection/Auscultation: normal bowel sounds Percussion/Palpation: + abdomen tender (upper abdominal without rebound) and abdomen soft; no guarding Musculoskeletal: Head/Neck/Chest: normocephalic and head atraumatic Extremities: extremities normal to inspection Skin: no rashes, warm and dry Neurologic: moves all extremities and awake tremors appear improving, only noticable with hands outstretched Psychiatric: Orientation: alert Eye Contact: good eye contact Results & Data Laboratory Results Laboratory Results - last 24 hr 07/03/18 07/03/18 07/03/18 07:46 07:47 07:47 WBC 1.89 L RBC 2.63 L Hgb 8.7 L Hct 25.9 L MCV 98.5 MCH 33.1 MCHC 33.6 RDW Std Deviation 67.5 H RDW Coeff of Michelle 19.0 H Plt Count 35 L Immature Gran % (Auto) 0.0 Neut % (Auto) 29.1 Lymph % (Auto) 52.4 [place] % (Auto) 11.1 Eos % (Auto) 6.9 Baso % (Auto) 0.5 Immature Gran # (Auto) 0.00 Neut # (Auto) 0.55 L* Lymph # (Auto) 0.99 L [place] # (Auto) 0.21 Eos # (Auto) 0.13 Baso # (Auto) 0.01 Anisocytosis Present PT 21.4 H INR 2.2 H Sodium 138 Potassium 3.7 Chloride 107 Carbon Dioxide 25 Anion Gap 7.0 BUN 3 L Creatinine 0.58 L Est Cr Clr Drug Dosing 122.6 Est GFR ( Amer) 125.4 Est GFR (Non-Af Amer) 108.2 BUN/Creatinine Ratio 5.0 L Glucose 90 Calcium 7.8 L Total Bilirubin 1.9 H AST 65 H ALT 36 Alkaline Phosphatase 139 H Ammonia Total Protein 6.5 Albumin 1.8 L Globulin 4.7 H Albumin/Globulin Ratio 0.4 L 07/03/18 07:47 WBC RBC Hgb Hct MCV MCH MCHC RDW Std Deviation RDW Coeff of Michelle Plt Count Immature Gran % (Auto) Neut % (Auto) Lymph % (Auto) [place] % (Auto) Eos % (Auto) Baso % (Auto) Immature Gran # (Auto) Neut # (Auto) Lymph # (Auto) [place] # (Auto) Eos # (Auto) Baso # (Auto) Anisocytosis PT INR Sodium Potassium Chloride Carbon Dioxide Anion Gap BUN Creatinine Est Cr Clr Drug Dosing Est GFR ( Amer) Est GFR (Non-Af Amer) BUN/Creatinine Ratio Glucose Calcium Total Bilirubin AST ALT Alkaline Phosphatase Ammonia 20.2 Total Protein Albumin Globulin Albumin/Globulin Ratio Medications Administered Clotrimazole (Mycelex) 10 mg BUCCAL [id number] HUGH Stop: 07/09/18 06:59 Last Admin: 07/03/18 13:07 Dose: 10 mg Documented by: [id number] Admin: 07/03/18 13:07 Dose: Not Given Documented by: [id number] Admin: 07/03/18 05:37 Dose: 10 mg Documented by: [id number] Admin: 07/02/18 22:41 Dose: 10 mg Documented by: [id number] Admin: 07/02/18 19:59 Dose: 10 mg Documented by: [id number] Admin: 07/02/18 14:36 Dose: 10 mg Documented by: [id number] Admin: 07/02/18 11:48 Dose: Not Given Documented by: [id number] Admin: 07/02/18 07:42 Dose: 10 mg Documented by: [id number] Admin: 07/01/18 22:23 Dose: 10 mg Documented by: [id number] Admin: 07/01/18 18:59 Dose: 10 mg Documented by: [id number] Admin: 07/01/18 15:13 Dose: 10 mg Documented by: [id number] Admin: 07/01/18 12:42 Dose: 10 mg Documented by: [id number] Admin: 07/01/18 07:29 Dose: 10 mg Documented by: [id number] Admin: 06/30/18 22:36 Dose: 10 mg Documented by: [id number] Admin: 06/30/18 19:27 Dose: 10 mg Documented by: [id number] Admin: 06/30/18 15:43 Dose: 10 mg Documented by: [id number] Admin: 06/30/18 12:03 Dose: 10 mg Documented by: [id number] Admin: 06/30/18 07:44 Dose: 10 mg Documented by: [id number] Admin: 06/30/18 00:25 Dose: 10 mg Documented by: [id number] Admin: 06/29/18 20:03 Dose: 10 mg Documented by: [id number] Admin: 06/29/18 16:07 Dose: 10 mg Documented by: [id number] Admin: 06/29/18 13:14 Dose: 10 mg Documented by: [id number] Admin: 06/29/18 07:33 Dose: 10 mg Documented by: [id number] Folic Acid 1 mg/ Syringe 10 mls @ 5 mls/min IV QAM [id number] Stop: 07/29/18 08:59 Last Admin: 07/03/18 08:58 Dose: 5 mls/min Documented by: [id number] Admin: 07/02/18 08:34 Dose: 5 mls/min Documented by: [id number] Admin: 07/01/18 07:30 Dose: 5 mls/min Documented by: [id number] Admin: 06/30/18 07:45 Dose: 5 mls/min Documented by: [id number] Admin: 06/29/18 07:33 Dose: 5 mls/min Documented by: [id number] Thiamine HCl 100 mg/ Syringe 10 mls @ 2 mls/hr IV QAM HUGH Stop: 07/29/18 08:59 Last Admin: 07/03/18 08:59 Dose: 2 mls/hr Documented by: [id number] Admin: 07/02/18 08:34 Dose: 2 mls/hr Documented by: [id number] Admin: 07/01/18 07:30 Dose: 2 mls/hr Documented by: [id number] Admin: 06/30/18 07:46 Dose: 2 mls/hr Documented by: [id number] Admin: 06/29/18 07:33 Dose: 2 mls/hr Documented by: [id number] Pantoprazole Sodium 40 mg/ (Syringe) 10 mls @ 5 mls/min IV BID HUGH Stop: 08/01/18 20:59 Last Admin: 07/03/18 08:59 Dose: 5 mls/min Documented by: [id number] Admin: 07/02/18 22:39 Dose: 5 mls/min Documented by: [id number] Magnesium Oxide (Mag-Ox) 400 mg PO BID HUGH Stop: 07/29/18 08:59 Last Admin: 07/03/18 08:58 Dose: 400 mg Documented by: [id number] Admin: 07/02/18 21:09 Dose: 400 mg Documented by: [id number] Admin: 07/02/18 08:35 Dose: 400 mg Documented by: [id number] Admin: 07/01/18 21:24 Dose: 400 mg Documented by: [id number] Admin: 07/01/18 07:30 Dose: 400 mg Documented by: [id number] Admin: 06/30/18 22:36 Dose: 400 mg Documented by: [id number] Admin: 06/30/18 07:45 Dose: 400 mg Documented by: [id number] Admin: 06/29/18 20:13 Dose: 400 mg Documented by: [id number] Admin: 06/29/18 10:48 Dose: Not Given Documented by: [id number] Miscellaneous (Remove Nicoderm Patch) 1 ea N/A HS HUGH Stop: 07/29/18 20:59 Last Admin: 07/02/18 21:09 Dose: 1 ea Documented by: [id number] Admin: 07/01/18 21:23 Dose: 1 ea Documented by: [id number] Admin: 06/30/18 22:36 Dose: 1 ea Documented by: [id number] Admin: 06/29/18 21:39 Dose: 1 ea Documented by: [id number] Nicotine (Nicoderm Cq) 14 mg TD QAM HUGH Stop: 07/29/18 16:14 Last Admin: 07/03/18 08:58 Dose: 14 mg Documented by: [id number] Admin: 07/02/18 08:35 Dose: 14 mg Documented by: [id number] Admin: 07/01/18 07:30 Dose: 14 mg Documented by: [id number] Admin: 06/30/18 07:45 Dose: 14 mg Documented by: [id number] Admin: 06/29/18 17:02 Dose: 14 mg Documented by: [id number] Ondansetron HCl (Zofran) 4 mg IV Q6H PRN PRN Reason: Nausea Stop: 07/29/18 05:01 Last Admin: 07/03/18 05:02 Dose: 4 mg Documented by: [id number] Admin: 07/02/18 12:51 Dose: 4 mg Documented by: [id number] Admin: 07/02/18 06:18 Dose: 4 mg Documented by: [id number] Admin: 07/01/18 21:16 Dose: 4 mg Documented by: [id number] Admin: 07/01/18 14:52 Dose: 4 mg Documented by: [id number] Admin: 07/01/18 04:16 Dose: 4 mg Documented by: [id number] Admin: 06/30/18 19:27 Dose: 4 mg Documented by: [id number] Admin: 06/30/18 10:42 Dose: 4 mg Documented by: [id number] Admin: 06/30/18 04:36 Dose: 4 mg Documented by: [id number] Admin: 06/29/18 20:20 Dose: 4 mg Documented by: [id number] Admin: 06/29/18 13:13 Dose: 4 mg Documented by: [id number] (1) Alcohol withdrawal Complication of substance-induced condition: with unspecified complication Qualified Code(s): F10.239 - Alcohol dependence with withdrawal, unspecified (2) Neutropenia Neutropenia type: unspecified Qualified Code(s): D70.9 - Neutropenia, unspecified
[2018-07-04] MEDS: diazePAM 2 MG TABLET PO PRN ×3 (06:13→16:19)
[2018-07-04] MEDS: CLOTRIMAZOLE 10 MG TROCHE BUCCAL SCH ×4 (06:14→19:29)
[2018-07-04 07:21] VITALS: BP 111/70; TEMP 98.2; O2SAT 97
[2018-07-04 08:26] LABS: Hematocrit (blood only) 26.2 % (37-47); Hemoglobin 8.8 g/dL (12.0-16.0); Mean Corpuscular Hgb Conc 33.6 g/dL (32-36); Mean Corpuscular Volume 99.2 fL (80-100); Platelet Count 69 K/uL (130-400); RDW Coefficient of Variation 19.6 % (11.5-14.5); RDW Standard Deviation 70.6 fL (36.4-46.3); Red Blood Count 2.64 M/uL (4.2-5.4); White Blood Count 2.18 K/uL (4.8-10.8)
[2018-07-04 08:29] LABS: Anisocytosis Present; Basophils # (auto) 0.01 K/uL (0-0.2); Basophils % (auto) 0.5 %; Eosinophils # (auto) 0.14 K/uL (0-0.5); Eosinophils % (auto) 6.4 %; Hypochromasia Present; Immature Granulocytes # (auto) 0.01 K/uL (0.00-0.02); Immature Granulocytes % (auto) 0.5 %; Lymphocytes # (auto) 1.11 K/uL (1.2-3.4); Lymphocytes % (auto) 50.9 %; Monocytes # (auto) 0.22 K/uL (0.11-0.59); Monocytes % (auto) 10.1 %; Neutrophils # (auto) 0.69 K/uL (1.4-6.5); Neutrophils % (auto) 31.6 %; Target Cells 1+; Toxic Granulation 1+; Toxic Vacuolation 1+
[2018-07-04] MEDS: THIAMINE HCL 100 MG in SYRINGE 9 ML IV SCH (08:36)
[2018-07-04] MEDS: NICOTINE 14 MG/24 HR PATCH TD SCH (08:36)
[2018-07-04] MEDS: MAGNESIUM OXIDE 400 MG TAB PO SCH (08:36)
[2018-07-04] MEDS: FOLIC ACID 1 MG in SYRINGE 9.8 ML IV SCH (08:36)
[2018-07-04] MEDS: PANTOprazole 40 MG in SYRINGE 0 ML IV SCH (08:36)
[2018-07-04] MEDS: ONDANSETRON INJ 2 MG/ML 2 ML VIAL IV PRN ×2 (08:41→16:16)
[2018-07-04 08:53] LABS: INR 1.9 (0.9-1.1); Prothrombin Time 18.7 Seconds (9.0-12.0)
[2018-07-04 09:00] LABS: Albumin Level 2.2 gm/dl (3.4-5.0); BUN Creatinine Ratio 7.3 (10-20); Creatinine Clr Calc Pharmacy 104.6 ml/min; Est GFR (Non-African American) 102.7; Potassium 3.4 mmol/L (3.5-5.1)
[2018-07-04 09:04] LABS: Albumin Globulin Ratio 0.4 (0.9-2); Bilirubin,Total 1.9 mg/dl (0.2-1); Total Protein 8.2 gm/dl (6.4-8.2)
--- NOTE | 2018-07-04 13:21 | Discharge Summary ---
Date of Service July 04, 2018 Admission HPI Per Admitting Provider Ms. Barros is a 47 year old female with a history of multiple admissions secondary to ETOH abuse, ETOH cirrhosis, ETOH-related seizures, pancreatitis, and pancytopenia related to cirrhosis who presents to the emergency department due to abdominal pain and several episodes of hematemesis that occurred at approximately 8 o'clock this evening. The patient states that she was dry heaving, and then started throwing up dark red blood, and that it also came out of her nose. She states that this happened approximately 4 times. She notes that she has a history of chronic abdominal pain, secondary to her liver cirrhosis and pancreatitis. She states the pain has been worse recently, prompting her to take Aleve, which she was reportedly told in the past not to take. She states that her stool is dark green in color, and denies diarrhea. She also endorses decreased appetite, nausea, fever, chills, and being delirious recently. She states that she had 3 seizures that occurred yesterday. She states that the seizures involved shaking of her whole body, losing control of urine, and feeling weak afterwards. She states that she has been trying to cut back on her alcohol consumption for the past 2 weeks, and generally drinks 46 beers a day, but states that the alcohol content of the beer she drinks are 8%. She states she no longer drinks hard liquor. She states her last drink was this morning, when she had 2 beers. She denies having any hallucinations recently, but states that she has been having nightmares, and has noticed tremors. Ms. Barros is a smoker. She states that she has cut back, and smokes approximately 1 pack/week, and has been smoking since age of 11. She denies use of any other recreational drugs. Admission Exam Per Admitting Provider Constitutional: WD/WN, vitals as above + intoxicated appearing, + disheveled and cooperative ENMT: Mouth: + dry oral mucous membranes breath smells like alcohol. Tongue w/thick white coating Respiratory: normal respiratory effort, lungs clear to auscultation Cardiovascular: Rate/Rhythm: regular rhythm and + tachycardic Vessels: radial pulses present Extremities: no calf tenderness and no pedal edema Gastrointestinal (Abdomen): Percussion/Palpation: + abdomen tender (tender throughout abdomen, worst in epigastric region) and abdomen soft; no guarding and abdomen not rigid Skin: no rashes, warm and dry Neurologic: Motor/Sensory: + tremor (b/l arm tremor) AXO x 3. Answers questions appropriately but occasionally strays off into another conversation topic Principal Diagnosis Alcohol withdrawel; cirrhosis of liver, alcoholic; pancytopenia Discharge Exam Constitutional well developed, cooperative and comfortable Eyes + anicteric sclerae and EOM intact bilaterally Neck normal visual inspection Respiratory normal respiratory effort, lungs clear to auscultation Cardiovascular RRR, no murmur, no edema Gastrointestinal (Abdomen) Inspection/Auscultation: normal bowel sounds Percussion/Palpation: abdomen soft; abdomen nontender and no guarding Musculoskeletal Head/Neck/Chest: normocephalic and head atraumatic Extremities: extremities normal to inspection Skin no rashes, warm and dry Neurologic moves all extremities and awake Motor/Sensory: + tremor (generalized) Psychiatric Orientation: alert Eye Contact: good eye contact Motor Behavior: + tremor (generalized) Affect: + anxious affect Discharge Data Allergies Allergy/AdvReac Type Severity Reaction Status Date / Time acetaminophen [From Tylenol] AdvReac Intermediate HX Verified 06/18/18 00:17 CIRRHOSIS NSAIDS (Non-Steroidal AdvReac Intermediate HX Verified 06/18/18 00:17 Anti-Inflamma CIRRHOSIS phenytoin AdvReac Intermediate LOSS OF Verified 06/18/18 00:17 EQUILIBRIUM Consultations 06/29/18 03:16 Consult Case Management - Discharge Planning Routine Consult Gastroenterology Routine Ordered Studies 06/28/18 20:41 CT abd pelvis IV con only Urgent IMPRESSION: 1. Severe hepatic steatosis redemonstrated along with mild marginal nodularity suggestive of associated cirrhosis. Trace abdominopelvic ascites. 2. Mild edema with trace fluid about the anterior pararenal space. Correlate with lipase level to exclude mild acute pancreatitis. 3. Wall thickening of the duodenum may be reactive or reflect a primary infectious or inflammatory duodenitis. 4. No bowel obstruction. Multiple small bowel air-fluid levels throughout the abdomen and pelvis may be physiologic or reflect a mild enteritis or ileus. 5. Circumferential wall thickening of the bladder with perivesicular stranding is suspicious for cystitis. Additionally, there is mild urothelial thickening and enhancement about the left renal pelvis and proximal left ureter. Correlate with urinalysis. 6. Prior cholecystectomy and appendectomy. Hospital Course (1) Hematemesis with nausea: Ms. Barros is a 47 year old female with a history of ETOH abuse, ETOH cirrhosis, ETOH-related seizures, pancreatitis, and pancytopenia related to cirrhosis who presents to the emergency department due to abdominal pain and several episodes of hematemesis that occurred at approximately 8 o'clock this evening. ED course: Patient received 1 g of calcium gluconate, 10 mg of IV metoclopramide, 20 mg of IV famotidine, 2 mg of Ativan, 1 g of magnesium sulfate, 1 L normal saline bolus, 1 banana bag, 40 mg IV pantoprazole, and 4 mg IV Zofran. -was admitted to telemetry and was transferred on med/surg until discharged home -no hematemesis since presentation to the hospital; stable Hgb and improving on discharge. Suspect possible Nehal-Jean tear. -06/28/18 - CT abdomen and pelvis showed nonspecific edema around gastroduodenal area -> liver disease vs. PUD/gastroduodenitis -CT scan findings, hx of hematemesis and epigastric tenderness suggestive of PUD/gastritis -GI consulted -Pt must stop drinking -Was placed on PPI drip. Does not recommend need for EGD. Agree with plan. 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 -Not currently on IV fluids on discharge -Replete e- as indicated -Discussed need for inpatient rehab with patient. She expressed desire earlier this week of wanting rehab. Throughout the course of stay, changed her mind about inpatient rehab and wanted home health. Later, denied home health. Then, stated plan was to attend alcoholic anonymous as meetings were 2 [address] from her residence. DVT Prophylaxis: contraindicated in setting of hematemesis, low platelets and constantly elevated INR of 1.9 Code status: FULL Disposition: admit to telemetry F/E/N: Regular diet monitor e- (2) Alcohol withdrawal: -On admit, Patient received a banana bag in the emergency department, as well as 2 mg of IV Ativan, tremulous despite having an alcohol level of 272.4. AWSS protocol and 3mg of valium IV ordered q4h prn withdrawal symptoms. -Was tapered off benzos, including changing from IV to PO and q4hr to q6hr and decrease in dosage. Was ordered PRN but patient's requests are consistent to use when it was time for it to be available. Believe request for benzos driven by dopamine reward system. Unfortunately, consistently attempts to negotiate for further benzos or pain meds, but discussed with patient not medically indicated. Her tremors did improve and suspect that this might be a chronic issue as well. -Continue with 1mg IV folic acid and 100mg IV thiamine (3) Liver cirrhosis, alcoholic: -Secondary to alcohol abuse and hepatitis C -Hold metoprolol tartrate as no evidence of esophageal varices and prior EGD. Okay to restart on discharge as outpatient. -LFTs are similar to prior presentations, with a INR consistently 1.9-2.2 consistent with liver disease and lack of clotting factors, total bilirubin stable around 1.9-1.8 without acute changes. 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 (4) Hypocalcemia: -Received calcium gluconate in the emergency department for calcium level of 6.7 - 06/30/18 received Calcium gluconate 10% 1,000mg x1 which, improved to 6.9 with corrected is 8.74 and within normal limits. Yesterday, corrected calcium of 9.04 and within normal limits. Rest of stay was within normal limits as well. (5) Hypomagnesemia: -Previously Given 4 g of magnesium sulfate, am labs showed 1.6 on 06/28/18 -continue home magnesium oxide supplementation on discharge (6) Seizures: -Patient has a history of seizures related to alcohol withdrawal, and r eports having had seizures prior to admission -Seizure precautions, continue to monitor -No seizure activity/episodes noted during admission (7) Pancreatitis: Clinical picture not consistent with pancreatitis, lipase normal at 292 and not 3x the upper limit to consider positive Although mild edema with trace fluid about the anterior pararenal space, lipase level excludes mild acute pancreatitis. (8) Neutropenia: History of chronic pancytopenia CBC values consistent with previous recent labwork. Does appear to be worsening since November 2017, most likely to EtOH abuse. - Previous labs show chronic neutropenia - Values did improve throughout the week (9) Thrombocytopenia: Chronic problem On admit 42, on discharge improved to 69. She did have some low values here in the 20s, but did not have any values below 10 or signs of bleeding. No acute signs of bleeding. Has had low values in the 20s previously on several occasions. 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 (10) Tobacco abuse: -nicotine patch provided -smoking cessation provided (11) Hepatitis C: (12) Oral thrush: -nystatin on backorder, treated with clotrimazole x6 days -likely secondary to chronic neutropenia -no visualized plaques/fungal infection on discharge exam (13) Dysuria: -Previous U/A suggests infection but not clean catch and was started on R ocephin pending cx results -Culture results were positive for E. coli >100,000 with sensitivities showing dowling-sensitive. -Discontinued with Rocephin, treated adequately with 4 days of IV antibiotics. -On discharge, Mary requested antibiotics for dysuria. Provided eRx for Nitrofurantoin 100mg q6hrs for 3 days. (14) Pancytopenia: -labs similar to previous admissions -> On admission noted WBC of 3.17, Hgb of 9.5, Platelet count of 42 -3/5, WBC 1.74, Hgb 8.5, platelet 26 -3/6 WBC 1.83, Hgb 8.6, Plt 28 -3/7 WBC 1.89, Hgb 8.7, Plt 35 - values are improving but low values are most likely patient's new baseline. -3/8 WBC 2.18, Hgb 8.8, Plt 69 - discussed with patient and she was happy to see values improve and was aware that this improvement was most likely because she did not drink any alcohol during admission. Hopefully with EtOH cessation, patient can recover. -No signs of GI bleed -has had a bone marrow biopsy in 2014 which was unremarkable. Pancytopenia deemed to be secondary to nutritional insufficiency, liver failure, EtOH mitrochondrial toxicity of bone marrow. Total Time Total Time Spent Total Time Spent (In Minutes): 35 Total Time Includes: Examination of the Patient, Discharge Planning, Medication Reconciliation and Communication With Other Providers Discharge Plan Discharge Items Patient Disposition: Home - Self-Care Reason For Visit: HEMATEMESIS, ALCOHOL WITHDRAWAL Discharge Diagnosis: Alcohol Withdrawal; liver cirrhosis, alcoholic Discharge Goals: Improve disease control, Prevent disease and Therapeutic intervention Activity: Per 'Additional Instructions' section Non-emergency contact: Primary Care Provider Call non-emergency contact if: you have any medication questions, your pain is concerning for you and you have a fever Follow-up/Referrals: Marjorie Del Castillo C.R.N.P. [Primary Care Provider] - Diet: Regular Addtl Provider Instructions: You were admitted for hematemesis and alcohol withdrawal. Your blood levels are improving on discharge and you were treated for alcohol withdrawal. It is very important that you do not drink anymore alcohol. Since you were admitted, you have not had alcohol, and your blood counts have improved. Alcohol is toxic to your bone marrow which creates new red blood cells and white blood cells. The plan you conveyed was to attend alcoholic's anonymous and to avoid individuals that drink and are bad influences or enabling your drinking. We wished and provided you the option for discharge to an inpatient rehab facility. It is still an option if you wish to pursue this after discharge. You already have known cirrhosis of the liver from alcohol. Continuing to drink will cause more damage to your liver and acceleration/progression of disease. For your burning with urination (dysuria), we have provided a prescription for an Antibiotic Nitrofurantoin 100mg. Take one pill every 6 hours for 3 days. Prescriptions were sent electronically to [facility]'s pharmacy in [place], which was your preferred pharmacy listed. You were also treated with a course of IV antibiotics (Rocephin) here in the hospital. A culture showed that antibiotics provided will treat your urinary tract infection. While here, you were treated for oral fungal infection (commonly called thrush) with an anti-fungal. It is important to continue to take your vitamins, folic acid, thiamine daily. Please follow up with your primary care provider and call for next available appointment. If you are experiencing any concerning symptoms, please seek medical attention. Prescriptions: New nitrofurantoin macrocrystal 100 mg capsule 100 mg PO Q6H 3 Days Qty: 12 RF: 0 thiamine HCl (vitamin B1) [Vitamin B-1] 100 mg tablet 100 mg PO DAILY 30 Days Qty: 30 RF: 0 folic acid 1 mg tablet 1 mg PO DAILY 30 Days Qty: 30 RF: 0 Continued Flintstones Tab Chew 100 mcg Tablet,Chewable 1 tab PO DAILY RF: 0 naproxen sodium [Aleve] 220 mg Tablet 220 mg PO BID PRN (Reason: Pain) RF: 0 magnesium oxide 400 mg (241.3 mg magnesium) tablet 400 mg PO BID 30 Days Qty: 60 RF: 0 ondansetron 4 mg tablet,disintegrating 4 mg PO Q8 PRN (Reason: Nausea) Qty: 30 RF: 0 metoprolol tartrate 25 mg tablet 12.5 mg PO TID Qty: 30 RF: 0 Stand-Alone Forms: Call Back Authorization, [facility]/Other Patient Handouts: Alcoholism Myths Facts, Alcoholism Part Solution, Alcoholism Get Help, Addiction Alcohol Discharge Orders: Discharge Order (Routine); Ordered 07/04/18 Ordered By: Vikas Lozano Admission Data Admit Date/Time: 06/29/18 02:02 Attending Provider: Tad Roland Admit Provider: Jhon Hannah Primary Care Provider: Marjorie Del Castillo Other Providers: Tad Roland ; Valentino Delarosa ; Harjinder Sadler ; Stevenson Menon ; Hue Barnard ; Apolinar Gray Service: Medical Other Interventions: Discharge Summary Assessment (RN) Last Done: 07/04/18 14:27 Supervising Physician Co-Signing Physician Notes Patient seen and examined with the resident. Agree with history, physical exam, assessment and plan with the following updates/corrections: 47yo F w/ hx of HCV and alcoholic cirrhosis who presented for hematemesis. Resting comfortably on my exam. Reports tremors and continued abdominal pain and back pain for which she requests more diazepam. 1) Hematemesis - None observed inpatient. Hgb stable ~8.5. - Seen by GI without interest in any procedure 2) Thrombocytopenia - Platelets usually range from 25-100. Seem to drop during acute illness. - Plt down to 25 on 06/30 & 07/01. Up to 35 on 07/03 and over 60 on discharge. - No signs of bleeding while admitted. 3) Alcohol withdrawal - Current GUNNAR scores are 3-4. Scaling back benzo as she is getting frequent dosing for questionable withdrawal. - Diazepam PRN - Little actual need. 4) Cirrhosis - Due to untreated HCV and alcohol abuse - Counseled for alcohol cessation - Reported she would go to rehab, but now saying she will go home.
[2018-07-04 14:28] VITALS: PULSE 104
== END 2018-07-04 21:30 | disposition home or self-care (01) | DRG 897 ==
LOC: ED 20:16 → SUATTDRO 06-29 02:02 → 2S 06-29 02:02 → 4E 07-02 11:08

== ENCOUNTER 2018-08-27 19:51 | Inpatient (IN) ==
--- OUTSIDE RECORDS SUMMARY | 2018-08-27 19:56 | External Medical Summary | Continuity of Care Document ---
:1970 Author Name Adams Dia, Provider Address Unavailable Unavailable , Care Team Providers Name Role Phone NonMMOOSEG [place], Provider Unavailable [email or web address] Mikaela Clifton Unavailable [email or web address] MILE BACON Unavailable Unavailable Unavailable Unavailable Unavailable Problems Alcoholism (303.90) (F10.20) Chronic pancreatitis (577.1) (K86.1) Anemia of chronic disease (285.29) (D63.8) Chronic pain syndrome (338.4) (G89.4) Abdominal pain, chronic, right upper quadrant (789.01) (R10. 11) Chronic viral hepatitis C (070.54) (B18.2) Screening for breast cancer (V76.10) (Z12.31) CKD (chronic kidney disease) stage 2, GFR 60-89 ml/min (585. 2) (N18.2) Seizure disorder (345.90) (G40.909) History of sinoatrial node dysfunction (V12.59) (Z86.79) Alcoholic cirrhosis of liver (571.2) (K70.30) Esophageal reflux (530.81) (K21.9) Allergies and Adverse Reactions Dilantin (Allergy) NSAIDs (Allergy) Medications levETIRAcetam 500 MG Oral Tablet; Take 1 tablet daily Start: 21-May-2014 Refills: 0 Pantoprazole Sodium 40 MG Oral Tablet De layed Release; TAKE 1 TABLET TWICE DAILY 30 MINUTES BEFORE BREAKFAST AND DINNER. SYED Chatterjee Start: 2014 Quantity: 60 Refills: 3 Lyrica 50 MG Oral Capsule; TAKE 1 CAPSULE TWICE DAILY. SYED Huffman Start: 06-Aug-2014 Quantity: 60 Refills: 0 Amitriptyline HCl - 25 MG Oral Tablet; TAKE 1 TABLET T WICE DAILY NEEDED. SYED Chatterjee Start: 21-May-2014 Quantity: 60 Refills: 0 Ondansetron HCl - 4 MG Oral Tablet; TAKE 1 TABLET Ever y 8 hours PRN Nausea SYED Chatterjee Start: 21-May-2014 Quantity: 30 Refills: 0 Creon [id number] UNIT Oral Capsule Delayed Re lease Particles; Take 1 cap by oral route 4x every day with meals and 1 cap with each snack SYED Chatterjee Start: 21-May-2014 Quantity: 1 250 Capsule Delayed Release Particles Bottle Refills: 0 Calcium CAPS Refills: 0 Multi-Day Vitamins TABS Refills: 0 Magnesium CAPS Refills: 0 Thiamine CAPS Refills: 0 Procedures History of Gallbladder Surgery Status: C ompleted History of Foot Surgery Status: Complete d History of Hand Surgery Status: Complete d History of Bladder Surgery Status: Compl eted Immunizations Immunizations not documented Family History Grandmother Family history of malignant neoplasm (V16.9) (Z80.9) Status: Active Mother No pertinent family history (V49.89) (Z78.9) Status: Active Social History - Smoking Status Current every day smoker Plan of Treatment Planned Observations Planned Goals not documented Results No Known Results Results not documented
[2018-08-27] MEDS ORDERED: NALOXONE HCL 1 MG in SODIUM CHLORIDE 0.9% 1000ML 1,000 ML IV STA (20:08)
[2018-08-27] MEDS ORDERED: NALOXONE HCL 0.4 MG/1 ML VIAL/CARP ONE (20:10)
[2018-08-27] MEDS ORDERED: SODIUM CHLORIDE 0.9% 1000ML 1,000 ML IV SCH (20:15)
[2018-08-27 20:32] LABS: Appearance Urine Cloudy (Clear); Bacteria Urine Automated 4+ (Negative); Blood Urine Trace (Negative); Color Urine Dark Yellow; Epithelial Cell Urine Auto >30 /lpf (0-5); Glucose Urine UA Negative (Negative); Ketones Urine Negative (Negative); Leukocyte Esterase Urine 3+ (Negative); Nitrite Urine Positive (Negative); Protein Urine Trace (Negative); Specific Gravity Urine 1.015 (1.000-1.030); Urobilinogen Urine Negative (Negative); WBC Urine Automated >30 /hpf (0-5)
[2018-08-27 20:40] LABS: Hematocrit (blood only) 29.4 % (37-47); Hemoglobin 9.9 g/dL (12.0-16.0); Mean Corpuscular Hgb Conc 33.7 g/dL (32-36); RDW Coefficient of Variation 16.7 % (11.5-14.5); RDW Standard Deviation 60.2 fL (36.4-46.3); Red Blood Count 2.97 M/uL (4.2-5.4); White Blood Count 3.59 K/uL (4.8-10.8)
[2018-08-27 20:42] LABS: Bilirubin Urine Negative (Negative); Ictotest Urine Negative (Negative)
[2018-08-27 20:52] LABS: Mean Platelet Volume 10.9 fL (7.4-10.4); Platelet Count 41 K/uL (130-400)
[2018-08-27 20:53] LABS: INR 1.7 (0.9-1.1); Prothrombin Time 16.7 Seconds (9.0-12.0)
[2018-08-27 21:02] LABS: Albumin Level 2.4 gm/dl (3.4-5.0); BUN Creatinine Ratio 6.2 (10-20); Calcium 7.9 mg/dl (8.5-10.1); Creatinine Clr Calc Pharmacy 113.5 ml/min; Est GFR (African American) 121.4; Est GFR (Non-African American) 104.8; Potassium 3.4 mmol/L (3.5-5.1)
[2018-08-27 21:05] LABS: Albumin Globulin Ratio 0.4 (0.9-2); Bilirubin,Total 1.8 mg/dl (0.2-1); Globulin 5.8 gm/dl (2.5-4.0); Total Protein 8.2 gm/dl (6.4-8.2)
[2018-08-27 21:05] LABS: Amphetamines+Metham, Urine Neg (Neg); Barbiturates, Urine Neg (Neg); Benzodiazepine, Urine Pos (Neg); Cocaine, Urine Neg (Neg); MDMA (Ecstacy), Urine Neg (Neg); Methadone, Urine Neg (Neg); Opiate, Urine Neg (Neg); Phencyclidine, Urine Neg (Neg)
[2018-08-27 21:06] LABS: Acetaminophen < 2 ug/ml (10-30); Salicylate < 1.7 mg/dl (2.8-20)
[2018-08-27 21:07] LABS: Troponin I < 0.015 ng/ml (0-0.045)
[2018-08-27 22:05] LABS: Basophils # (auto) 0.02 K/uL (0-0.2); Basophils % (auto) 0.6 %; Eosinophils # (auto) 0.07 K/uL (0-0.5); Eosinophils % (auto) 1.9 %; Lymphocytes # (auto) 1.75 K/uL (1.2-3.4); Lymphocytes % (auto) 48.7 %; Monocytes # (auto) 0.24 K/uL (0.11-0.59); Monocytes % (auto) 6.7 %; Neutrophils # (auto) 1.51 K/uL (1.4-6.5); Neutrophils % (auto) 42.1 %
--- NOTE | 2018-08-27 22:20 | CT Scan Report ---
CT head/brain wo con CLINICAL HISTORY: 47 years-old Female with AMS. Acutely altered mental status TECHNIQUE: Multiple axial CT images of the head were obtained without contrast. A dose lowering tech nique was utilized adhering to the principles of ALARA. CT DOSE: 1074.96 mGy.cm COMPARISON: CT head 06/17/2018. FINDINGS: Motion degraded exam. No acute intracranial hemorrhage, midline shift, intracranial mass, hydrocephal us, territorial ischemia or abnormal extra-axial collection. The calvarium is intact. The paranasal sinuses, mastoid air cells, and middle ear cavities are clear . IMPRESSION: No acute intracranial abnormality. The above report was generated using voice recognition software. It may contain grammatical, syntax o r spelling errors. Electronically signed by: Sam Etienne M.D. 08/27/2018 10:19 PM
[2018-08-27] MEDS ORDERED: MULTI-VITAMIN INFUSION 10 ML, THIAMINE HCL 100 MG, FOLIC ACID 1 MG in SODIUM CHLORIDE 0... IV SCH (23:45)
[2018-08-27] MEDS ORDERED: LORazepam 2 MG/4 ML VIAL IV STA (23:54)
[2018-08-27] MEDS ORDERED: ONDANSETRON INJ 2 MG/ML 2 ML VIAL IV STA (23:54)
[2018-08-28] MEDS ORDERED: cefTRIAXone SODIUM 1,000 MG/50 ML BAG IV STA (00:02)
--- NOTE | 2018-08-28 01:43 | Emergency Department Note ---
Entered by Winnie Hines acting as a scribe for History of Present Illness General Chief complaint: Unresponsive Stated complaint: unresponsive Source: patient History of Present Illness Onset (ago): minute(s) (just prior to arrival) Location: head Pain Consistency: + now resolved and + other (episode) Quality: + other (unresponsiveness) Associated symptoms: + other (negative trauma); no nausea/vomiting The patient is a 47 year old female who presents to the Emergency Room with complaints of a now resolved episode of unresponsiveness that occurred just prior to arrival, per EMS. EMS states that the patient was witnessed taking a pill from her bag. Per EMS, after taking this pill, the patient had witnessed seizure-like activity. EMS states that the patient was unresponsive upon arrival and was unable to answer questions. EMS denies vomiting or trauma. The patient denies taking pills. Home Medications Home Medications Medication Instructions Recorded Confirmed Type Unobtainable 08/27/18 08/27/18 History diazepam 5 mg PO DIRECTED 08/27/18 08/27/18 History gabapentin 400 mg PO QID 08/27/18 08/27/18 History pantoprazole 40 mg PO DAILY 08/27/18 08/27/18 History Allergies Allergy/AdvReac Type Severity Reaction Status Date / Time acetaminophen [From Tylenol] AdvReac Intermediate HX Verified 08/27/18 21:36 CIRRHOSIS NSAIDS (Non-Steroidal AdvReac Intermediate HX Verified 06/18/18 00:17 Anti-Inflamma CIRRHOSIS phenytoin AdvReac Intermediate LOSS OF Verified 08/27/18 21:36 EQUILIBRIUM Past Med/Surg History Medical History Alcohol withdrawal Hypokalemia Seizures Pancreatitis (Chronic) Liver failure Schizoaffective disorder (Chronic) Arthritis Depression Hypertension Liver disease Thyroid disease Gastritis Liver cancer (Chronic) Alcoholism Acute recurrent pancreatitis (Acute Unknown) 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 hepatitis C (Chronic Unknown) Chronic pancreatitis (Chronic Unknown) Cirrhosis, alcoholic (Chronic) Chronic renal failure, stage 3 (moderate) (Chronic) Polysubstance abuse (Acute) Depression with suicidal ideation (Acute) TIA (transient ischemic attack) (Acute) Hypotension (Acute) Neutropenia (Acute) Pancytopenia (Acute) Anemia (Acute) Hypocalcemia (Acute) Hypernatremia (Acute) Alcohol withdrawal Cholecystectomy planned Cholecystectomy planned Hyponatremia Surgical History Cholecystectomy planned History of appendectomy Family History Mother Multiple sclerosis Father , age 52 Acute coronary occlusion without mycocardial infarction Social History Preferred Language: Iranian Communication Ability: Effective Visual Impairment: No Limitations Instructional Support Specialist Required: No Beliefs That Will Affect Care: None marital status: Current Living Situation: Significant Other current occupational status: unemployed and disabled Other Information That Helps Us Care for You: No Feels Safe at Home: Yes Safety Concerns: Feels Safe At This Time Smoking Status: Current every day smoker Tobacco Type: cigarettes Cigarettes Per Day: 20 Do You Dip or Chew Tobacco: No Second Hand Exposure: No Tobacco Cessation Education Requested by Patient: No Hx Alcohol Use: Yes Alcohol type: beer Hx Substance Use: Yes (snorted subutex today) substance use type: does not use Review of Systems See HPI for pertinent positives & negatives. and A total of 10 systems reviewed and were otherwise negative Physical Exam Vital Signs Vital Signs - 24 hr 08/29/18 16:00 08/29/18 20:00 08/29/18 23:00 Temperature 37.3 C 37.3 C 37.1 C Temperature Source Oral Oral Oral Pulse Rate [Right Finger] 97 H 111 H 100 H Respiratory Rate 20 22 20 Respiratory Effort / Characteristics Non-Labored Respiratory Depth Normal Respiratory Pattern Regular Blood Pressure [Left Arm] 120/70 Blood Pressure [Right Arm] 124/87 135/83 Blood Pressure Mean [Left Arm] 86 Blood Pressure Mean [Right Arm] 99 100 Blood Pressure Position [Left Arm] Lying Blood Pressure Position [Right Arm] Lying Pulse Oximetry 97 91 91 Oxygen Delivery Method Room Air Room Air 08/30/18 06:33 08/30/18 07:39 Temperature 36.9 C 37.2 C Temperature Source Oral Oral Pulse Rate [Right Finger] 92 H 96 H Respiratory Rate 22 16 Respiratory Effort / Characteristics Non-Labored Spontaneous Respiratory Depth Normal Respiratory Pattern Blood Pressure [Left Arm] Blood Pressure [Right Arm] 115/82 135/88 Blood Pressure Mean [Left Arm] Blood Pressure Mean [Right Arm] 93 103 Blood Pressure Position [Left Arm] Blood Pressure Position [Right Arm] Lying Lying Pulse Oximetry 91 Oxygen Delivery Method Room Air Room Air Vital signs reviewed. General: Disheveled female. Poor overall hygiene. Smells of ETOH HEENT: No scleral icterus, neck supple. Constricted pupils. Atraumatic. Cardiovascular: Regular rate and rhythm, no extra sounds. Pulmonary: Clear to auscultation bilaterally, normal work of breathing. Abdomen: Soft, nontender, nondistended, positive bowel sounds. Musculoskeletal: Atraumatic, no peripheral edema. Extremities: Diffuse edema. Neurologic: Opens eyes to verbal stimuli. Speech is slurred. Unable to answer questions. Skin: Warm, dry, no rash Course 2011: The patient was evaluated in room A1, and a complete history and physical examination were performed. 2341: [facility] further evaluation. Consultations Consultation #1: I [facility] for further evaluation. Time: 23:41 Administered Medications Gabapentin (Neurontin) 300 mg PO TID ON LICENSE OF [facility] Stop: 09/28/18 13:59 Last Admin: 08/30/18 08:34 Dose: 300 mg Documented by: [id number] Admin: 08/29/18 20:23 Dose: 300 mg Documented by: [id number] Admin: 08/29/18 14:15 Dose: 300 mg Documented by: [id number] Potassium Chloride/Dextrose/Sod Cl (D5w And 1/2nss + 20meq Kcl) 20 meq in 1,000 mls @ 100 mls/hr IV .Q10H HUGH Stop: 09/27/18 02:44 Last Admin: 08/30/18 04:55 Dose: 100 mls/hr Documented by: [id number] Infusion: 08/30/18 04:55 Dose: 100 mls/hr Documented by: [id number] Admin: 08/29/18 19:47 Dose: 100 mls/hr Documented by: [id number] Infusion: 08/29/18 19:35 Dose: 100 mls/hr Documented by: [id number] Admin: 08/29/18 09:35 Dose: 100 mls/hr Documented by: [id number] Infusion: 08/29/18 09:26 Dose: 100 mls/hr Documented by: [id number] Admin: 08/28/18 23:26 Dose: 100 mls/hr Documented by: [id number] Infusion: 08/28/18 21:45 Dose: 100 mls/hr Documented by: [id number] Admin: 08/28/18 11:45 Dose: 100 mls/hr Documented by: [id number] Infusion: 08/28/18 11:45 Dose: 100 mls/hr Documented by: [id number] Admin: 08/28/18 02:59 Dose: 100 mls/hr Documented by: [id number] Lorazepam (Ativan) 1 mg in 2 mls @ 2 mls/min IV UD PRN; Protocol PRN Reason: EtOH Withdrawl AWSS Score 6,7 Stop: 09/27/18 03:44 Last Admin: 08/29/18 16:57 Dose: 2 mls/min Documented by: [id number] Admin: 08/29/18 12:33 Dose: 2 mls/min Documented by: [id number] Admin: 08/29/18 07:52 Dose: 2 mls/min Documented by: [id number] Admin: 08/28/18 08:28 Dose: 2 mls/min Documented by: [id number] Lorazepam (Ativan) 2 mg in 4 mls @ 4 mls/min IV UD PRN; Protocol PRN Reason: EtOH Withdrawl AWSS Score 8,9 Stop: 09/27/18 03:44 Last Admin: 08/30/18 06:39 Dose: 4 mls/min Documented by: [id number] Admin: 08/29/18 20:25 Dose: 4 mls/min Documented by: [id number] Admin: 08/29/18 04:32 Dose: 4 mls/min Documented by: [id number] Admin: 08/29/18 00:58 Dose: 4 mls/min Documented by: [id number] Admin: 08/28/18 20:58 Dose: 4 mls/min Documented by: [id number] Admin: 08/28/18 17:11 Dose: 4 mls/min Documented by: [id number] Admin: 08/28/18 12:43 Dose: 4 mls/min Documented by: [id number] Admin: 08/28/18 04:03 Dose: 4 mls/min Documented by: [id number] Ceftriaxone Sodium 2,000 mg/ (Dextrose) 70 mls @ 140 mls/hr IV Q24H HUGH Stop: 09/02/18 11:59 Last Infusion: 08/29/18 13:23 Dose: 0 mls/hr Documented by: [id number] Admin: 08/29/18 12:34 Dose: 140 mls/hr Documented by: [id number] Infusion: 08/28/18 12:18 Dose: 0 mls/hr Documented by: [id number] Admin: 08/28/18 11:45 Dose: 140 mls/hr Documented by: [id number] Folic Acid 1 mg/ Syringe 10 mls @ 5 mls/min IV QAM ON LICENSE OF [facility] Stop: 09/28/18 08:59 Last Admin: 08/30/18 08:34 Dose: 5 mls/min Documented by: [id number] Admin: 08/29/18 07:54 Dose: 5 mls/min Documented by: [id number] Thiamine HCl 100 mg/ Syringe 10 mls @ 2 mls/min IV QAM ON LICENSE OF [facility] Stop: 09/28/18 08:59 Last Admin: 08/30/18 08:34 Dose: 2 mls/min Documented by: [id number] Admin: 08/29/18 07:54 Dose: 2 mls/min Documented by: [id number] Metoclopramide HCl (Reglan) 10 mg IV Q6H HUGH Stop: 09/27/18 03:59 Last Admin: 08/30/18 03:28 Dose: 10 mg Documented by: [id number] Admin: 08/29/18 20:24 Dose: 10 mg Documented by: [id number] Admin: 08/29/18 16:53 Dose: 10 mg Documented by: [id number] Admin: 08/29/18 09:57 Dose: 10 mg Documented by: [id number] Admin: 08/29/18 04:33 Dose: 10 mg Documented by: [id number] Admin: 08/28/18 21:46 Dose: 10 mg Documented by: [id number] Admin: 08/28/18 17:06 Dose: 10 mg Documented by: [id number] Admin: 08/28/18 10:00 Dose: 10 mg Documented by: [id number] Admin: 08/28/18 05:21 Dose: Not Given Documented by: [id number] Ondansetron HCl (Zofran) 4 mg IV Q6H PRN PRN Reason: Nausea Stop: 09/27/18 02:39 Last Admin: 08/29/18 16:57 Dose: 4 mg Documented by: [id number] Admin: 08/29/18 07:51 Dose: 4 mg Documented by: [id number] Admin: 08/28/18 14:23 Dose: 4 mg Documented by: [id number] Admin: 08/28/18 08:24 Dose: 4 mg Documented by: [id number] Pantoprazole Sodium (Protonix) 40 mg PO DAILY HUGH Stop: 09/27/18 08:59 Last Admin: 08/30/18 08:34 Dose: 40 mg Documented by: [id number] Admin: 08/29/18 07:54 Dose: 40 mg Documented by: [id number] Admin: 08/28/18 08:26 Dose: 40 mg Documented by: [id number] Discontinued Medications Naloxone HCl 1 mg/ Sodium (Chloride) 1,002.5 mls @ 0 mls/hr IV .Q0M STA Stop: 08/27/18 20:09 Last Admin: 08/27/18 20:15 Dose: Not Given Documented by: [id number] Sodium Chloride (Nss 1000ml) 1,000 mls @ 999 mls/hr IV .Q1H1M HUGH Stop: 08/27/18 21:15 Last Infusion: 08/27/18 21:38 Dose: 0 mls/hr Documented by: [id number] Admin: 08/27/18 20:28 Dose: 999 mls/hr Documented by: [id number] Multivitamins 10 ml/ Thiamine HCl 100 mg/ Folic Acid 1 mg/Sodium Chloride 1,011.2 mls @ 1,011.2 mls/hr IV .Q1H HUGH Stop: 08/28/18 00:44 Last Infusion: 08/28/18 01:59 Dose: 0 mls/hr Documented by: [id number] Admin: 08/28/18 00:02 Dose: 1,011.2 mls/hr Documented by: [id number] Lorazepam (Ativan) 2 mg in 4 mls @ 4 mls/min IV NOW STA Stop: 08/27/18 23:55 Last Admin: 08/28/18 00:03 Dose: 4 mls/min Documented by: [id number] Ceftriaxone Sodium (Rocephin) 1,000 mg in 50 mls @ 100 mls/hr IV NOW STA Stop: 08/28/18 00:31 Last Infusion: 08/28/18 01:59 Dose: 0 mls/hr Documented by: [id number] Admin: 08/28/18 00:28 Dose: 100 mls/hr Documented by: [id number] Lorazepam (Ativan) 1 mg in 2 mls @ 2 mls/min IV ONE PRN; Protocol PRN Reason: EtoH Withdrawal AWSS 6-10 Stop: 08/28/18 03:30 Last Admin: 08/28/18 03:20 Dose: 2 mls/min Documented by: [id number] Ondansetron HCl 8 mg/ Dextrose 54 mls @ 216 mls/hr IV ONE ONE Stop: 08/28/18 18:29 Last Infusion: 08/28/18 18:42 Dose: 0 mls/hr Documented by: [id number] Admin: 08/28/18 18:27 Dose: 216 mls/hr Documented by: [id number] Naloxone HCl (Narcan) Confirm Administered Dose 1.2 mg .ROUTE .STK-MED ONE Stop: 08/27/18 20:11 Last Admin: 08/27/18 20:15 Dose: 1 mg Documented by: [id number] Ondansetron HCl (Zofran) 4 mg IV NOW STA Stop: 08/27/18 23:55 Last Admin: 08/28/18 00:03 Dose: 4 mg Documented by: [id number] Medical Decision Making Differential Diagnosis Differential diagnosis: Etiologies such as toxicologic, infection, hypoglycemia, electrolyte abnormalities, cardiac sources, intracerebral event, neurologic, as well as others were entertained. Medical Records Attestation: I reviewed the patient's medical records. Home Medications Current Medication List: was personally reviewed by me Laboratory Data Attestation: I reviewed the patient's lab results. Result diagrams: 08/30/18 05:53 08/30/18 05:53 Lab Results 08/27/18 08/27/18 08/27/18 Range/Units 20:18 20:18 20:25 WBC (4.8-10.8) K/uL RBC (4.2-5.4) M/uL Hgb (12.0-16.0) g/dL Hct (37-47) % MCV (80-100) fL MCH (25-34) pg MCHC (32-36) g/dL RDW Std Deviation (36.4-46.3) fL RDW Coeff of Michelle (11.5-14.5) % Plt Count (130-400) K/uL MPV (7.4-10.4) fL Immature Gran % (Auto) % Neut % (Auto) % Lymph % (Auto) % [place] % (Auto) % Eos % (Auto) % Baso % (Auto) % Immature Gran # (Auto) (0.00-0.02) K/uL Neut # (Auto) (1.4-6.5) K/uL Lymph # (Auto) (1.2-3.4) K/uL [place] # (Auto) (0.11-0.59) K/uL Eos # (Auto) (0-0.5) K/uL Baso # (Auto) (0-0.2) K/uL Absolute Nucleated RBC (0-0) K/uL Nucleated RBC % (auto) % Platelet Estimate (Normal) Giant Platelets Polychromasia Target Cells PT 16.7 H (9.0-12.0) Seconds INR 1.7 H (0.9-1.1) Sodium (136-145) mmol/L Potassium (3.5-5.1) mmol/L Chloride (98-107) mmol/L Carbon Dioxide (21-32) mmol/L Anion Gap (3-11) BUN (7-18) mg/dl Creatinine (0.6-1.2) mg/dl Est Cr Clr Drug Dosing ml/min Est GFR ( Amer) Est GFR (Non-Af Amer) BUN/Creatinine Ratio (10-20) Glucose (70-99) mg/dl Calcium (8.5-10.1) mg/dl Magnesium (1.8-2.4) mg/dl Total Bilirubin (0.2-1) mg/dl AST (15-37) U/L ALT (12-78) U/L Alkaline Phosphatase (45-117) U/L Troponin I (0-0.045) ng/ml Total Protein (6.4-8.2) gm/dl Albumin (3.4-5.0) gm/dl Globulin (2.5-4.0) gm/dl Albumin/Globulin Ratio (0.9-2) Folate (>5.38) ng/ml Urine Color Dark Yellow Urine Appearance Cloudy H (Clear) Urine pH 6.0 (4.5-7.5) Ur Specific [place] 1.015 (1.000-1.030) Urine Protein Trace H (Negative) Urine Glucose (UA) Negative (Negative) Urine Ketones Negative (Negative) Urine Blood Trace H (Negative) Urine Nitrite Positive H (Negative) Urine Bilirubin Negative (Negative) Urine Urobilinogen Negative (Negative) Ur Leukocyte Esterase 3+ H (Negative) Urine WBC (Auto) >30 H (0-5) /hpf Urine RBC (Auto) 5-10 H (0-4) /hpf U Hyaline Cast (Auto) 1-5 (0-5) /lpf U Epithel Cells (Auto) >30 H (0-5) /lpf Urine Bacteria (Auto) 4+ H (Negative) Salicylates (2.8-20) mg/dl Urine Opiates Screen Neg (Neg) Ur Methadone, Qual Neg (Neg) Acetaminophen (10-30) ug/ml Urine Barbiturates Neg (Neg) Ur Phencyclidine (PCP) Neg (Neg) U Amphetamin/Meth Scrn Neg (Neg) MDMA (Ecstasy) Screen Neg (Neg) U Benzodiazepines Scrn Pos H (Neg) Ur Cocaine Metabolite Neg (Neg) U Marijuana (THC) Screen Neg (Neg) Ethyl Alcohol mg/dL (0-3) mg/dl Blood Type Antibody Screen 08/27/18 08/27/18 08/27/18 Range/Units 20:25 20:25 20:25 WBC (4.8-10.8) K/uL RBC (4.2-5.4) M/uL Hgb (12.0-16.0) g/dL Hct (37-47) % MCV (80-100) fL MCH (25-34) pg MCHC (32-36) g/dL RDW Std Deviation (36.4-46.3) fL RDW Coeff of Michelle (11.5-14.5) % Plt Count (130-400) K/uL MPV (7.4-10.4) fL Immature Gran % (Auto) % Neut % (Auto) % Lymph % (Auto) % [place] % (Auto) % Eos % (Auto) % Baso % (Auto) % Immature Gran # (Auto) (0.00-0.02) K/uL Neut # (Auto) (1.4-6.5) K/uL Lymph # (Auto) (1.2-3.4) K/uL [place] # (Auto) (0.11-0.59) K/uL Eos # (Auto) (0-0.5) K/uL Baso # (Auto) (0-0.2) K/uL Absolute Nucleated RBC (0-0) K/uL Nucleated RBC % (auto) % Platelet Estimate (Normal) Giant Platelets Polychromasia Target Cells PT (9.0-12.0) Seconds INR (0.9-1.1) Sodium (136-145) mmol/L Potassium (3.5-5.1) mmol/L Chloride (98-107) mmol/L Carbon Dioxide (21-32) mmol/L Anion Gap (3-11) BUN (7-18) mg/dl Creatinine (0.6-1.2) mg/dl Est Cr Clr Drug Dosing ml/min Est GFR ( Amer) Est GFR (Non-Af Amer) BUN/Creatinine Ratio (10-20) Glucose (70-99) mg/dl Calcium (8.5-10.1) mg/dl Magnesium 2.0 (1.8-2.4) mg/dl Total Bilirubin (0.2-1) mg/dl AST (15-37) U/L ALT (12-78) U/L Alkaline Phosphatase (45-117) U/L Troponin I < 0.015 (0-0.045) ng/ml Total Protein (6.4-8.2) gm/dl Albumin (3.4-5.0) gm/dl Globulin (2.5-4.0) gm/dl Albumin/Globulin Ratio (0.9-2) Folate (>5.38) ng/ml Urine Color Urine Appearance (Clear) Urine pH (4.5-7.5) Ur Specific [place] (1.000-1.030) Urine Protein (Negative) Urine Glucose (UA) (Negative) Urine Ketones (Negative) Urine Blood (Negative) Urine Nitrite (Negative) Urine Bilirubin (Negative) Urine Urobilinogen (Negative) Ur Leukocyte Esterase (Negative) Urine WBC (Auto) (0-5) /hpf Urine RBC (Auto) (0-4) /hpf U Hyaline Cast (Auto) (0-5) /lpf U Epithel Cells (Auto) (0-5) /lpf Urine Bacteria (Auto) (Negative) Salicylates < 1.7 L (2.8-20) mg/dl Urine Opiates Screen (Neg) Ur Methadone, Qual (Neg) Acetaminophen < 2 L (10-30) ug/ml Urine Barbiturates (Neg) Ur Phencyclidine (PCP) (Neg) U Amphetamin/Meth Scrn (Neg) MDMA (Ecstasy) Screen (Neg) U Benzodiazepines Scrn (Neg) Ur Cocaine Metabolite (Neg) U Marijuana (THC) Screen (Neg) Ethyl Alcohol mg/dL 285.5 H (0-3) mg/dl Blood Type Antibody Screen 08/27/18 08/27/18 08/28/18 Range/Units 20:25 20:25 02:53 WBC 3.59 L (4.8-10.8) K/uL RBC 2.97 L (4.2-5.4) M/uL Hgb 9.9 L (12.0-16.0) g/dL Hct 29.4 L (37-47) % MCV 99.0 (80-100) fL MCH 33.3 (25-34) pg MCHC 33.7 (32-36) g/dL RDW Std Deviation 60.2 H (36.4-46.3) fL RDW Coeff of Michelle 16.7 H (11.5-14.5) % Plt Count 41 L (130-400) K/uL MPV 10.9 H (7.4-10.4) fL Immature Gran % (Auto) 0.0 % Neut % (Auto) 42.1 % Lymph % (Auto) 48.7 % [place] % (Auto) 6.7 % Eos % (Auto) 1.9 % Baso % (Auto) 0.6 % Immature Gran # (Auto) 0.00 (0.00-0.02) K/uL Neut # (Auto) 1.51 (1.4-6.5) K/uL Lymph # (Auto) 1.75 (1.2-3.4) K/uL [place] # (Auto) 0.24 (0.11-0.59) K/uL Eos # (Auto) 0.07 (0-0.5) K/uL Baso # (Auto) 0.02 (0-0.2) K/uL Absolute Nucleated RBC (0-0) K/uL Nucleated RBC % (auto) % Platelet Estimate (Normal) Giant Platelets Polychromasia Target Cells PT (9.0-12.0) Seconds INR (0.9-1.1) Sodium 144 (136-145) mmol/L Potassium 3.4 L (3.5-5.1) mmol/L Chloride 111 H (98-107) mmol/L Carbon Dioxide 27 (21-32) mmol/L Anion Gap 7.0 (3-11) BUN 4 L (7-18) mg/dl Creatinine 0.64 (0.6-1.2) mg/dl Est Cr Clr Drug Dosing 113.5 ml/min Est GFR ( Amer) 121.4 Est GFR (Non-Af Amer) 104.8 BUN/Creatinine Ratio 6.2 L (10-20) Glucose 134 H (70-99) mg/dl Calcium 7.9 L (8.5-10.1) mg/dl Magnesium (1.8-2.4) mg/dl Total Bilirubin 1.8 H (0.2-1) mg/dl AST 214 H (15-37) U/L ALT 72 (12-78) U/L Alkaline Phosphatase 202 H (45-117) U/L Troponin I (0-0.045) ng/ml Total Protein 8.2 (6.4-8.2) gm/dl Albumin 2.4 L (3.4-5.0) gm/dl Globulin 5.8 H (2.5-4.0) gm/dl Albumin/Globulin Ratio 0.4 L (0.9-2) Folate > 24.00 (>5.38) ng/ml Urine Color Urine Appearance (Clear) Urine pH (4.5-7.5) Ur Specific [place] (1.000-1.030) Urine Protein (Negative) Urine Glucose (UA) (Negative) Urine Ketones (Negative) Urine Blood (Negative) Urine Nitrite (Negative) Urine Bilirubin (Negative) Urine Urobilinogen (Negative) Ur Leukocyte Esterase (Negative) Urine WBC (Auto) (0-5) /hpf Urine RBC (Auto) (0-4) /hpf U Hyaline Cast (Auto) (0-5) /lpf U Epithel Cells (Auto) (0-5) /lpf Urine Bacteria (Auto) (Negative) Salicylates (2.8-20) mg/dl Urine Opiates Screen (Neg) Ur Methadone, Qual (Neg) Acetaminophen (10-30) ug/ml Urine Barbiturates (Neg) Ur Phencyclidine (PCP) (Neg) U Amphetamin/Meth Scrn (Neg) MDMA (Ecstasy) Screen (Neg) U Benzodiazepines Scrn (Neg) Ur Cocaine Metabolite (Neg) U Marijuana (THC) Screen (Neg) Ethyl Alcohol mg/dL (0-3) mg/dl Blood Type Antibody Screen 08/28/18 08/28/18 08/29/18 Range/Units 06:17 06:17 06:18 WBC 2.16 L 1.74 L (4.8-10.8) K/uL RBC 2.52 L 2.64 L (4.2-5.4) M/uL Hgb 8.4 L 8.9 L (12.0-16.0) g/dL Hct 25.1 L 26.1 L (37-47) % MCV 99.6 98.9 (80-100) fL MCH 33.3 33.7 (25-34) pg MCHC 33.5 34.1 (32-36) g/dL RDW Std Deviation 60.1 H 57.4 H (36.4-46.3) fL RDW Coeff of Michelle 16.6 H 15.8 H (11.5-14.5) % Plt Count 33 L 26 L* (130-400) K/uL MPV 11.5 H 12.0 H (7.4-10.4) fL Immature Gran % (Auto) 0.0 0.0 % Neut % (Auto) 41.7 40.8 % Lymph % (Auto) 48.1 44.3 % [place] % (Auto) 8.8 10.9 % Eos % (Auto) 0.5 3.4 % Baso % (Auto) 0.9 0.6 % Immature Gran # (Auto) 0.00 0.00 (0.00-0.02) K/uL Neut # (Auto) 0.90 L* 0.71 L* (1.4-6.5) K/uL Lymph # (Auto) 1.04 L 0.77 L (1.2-3.4) K/uL [place] # (Auto) 0.19 0.19 (0.11-0.59) K/uL Eos # (Auto) 0.01 0.06 (0-0.5) K/uL Baso # (Auto) 0.02 0.01 (0-0.2) K/uL Absolute Nucleated RBC 0.02 H (0-0) K/uL Nucleated RBC % (auto) 1.1 % Platelet Estimate SIGNIFIC DECREASED (Normal) Giant Platelets 2+ Polychromasia 1+ Target Cells 1+ PT (9.0-12.0) Seconds INR (0.9-1.1) Sodium 143 (136-145) mmol/L Potassium 3.9 (3.5-5.1) mmol/L Chloride 112 H (98-107) mmol/L Carbon Dioxide 29 (21-32) mmol/L Anion Gap 2.0 L (3-11) BUN 4 L (7-18) mg/dl Creatinine 0.51 L (0.6-1.2) mg/dl Est Cr Clr Drug Dosing 152.3 ml/min Est GFR ( Amer) 130.9 Est GFR (Non-Af Amer) 112.9 BUN/Creatinine Ratio 8.3 L (10-20) Glucose 123 H (70-99) mg/dl Calcium 6.9 L (8.5-10.1) mg/dl Magnesium (1.8-2.4) mg/dl Total Bilirubin 1.2 H (0.2-1) mg/dl AST 165 H (15-37) U/L ALT 60 (12-78) U/L Alkaline Phosphatase 163 H (45-117) U/L Troponin I (0-0.045) ng/ml Total Protein 7.0 (6.4-8.2) gm/dl Albumin 2.0 L (3.4-5.0) gm/dl Globulin 5.0 H (2.5-4.0) gm/dl Albumin/Globulin Ratio 0.4 L (0.9-2) Folate (>5.38) ng/ml Urine Color Urine Appearance (Clear) Urine pH (4.5-7.5) Ur Specific [place] (1.000-1.030) Urine Protein (Negative) Urine Glucose (UA) (Negative) Urine Ketones (Negative) Urine Blood (Negative) Urine Nitrite (Negative) Urine Bilirubin (Negative) Urine Urobilinogen (Negative) Ur Leukocyte Esterase (Negative) Urine WBC (Auto) (0-5) /hpf Urine RBC (Auto) (0-4) /hpf U Hyaline Cast (Auto) (0-5) /lpf U Epithel Cells (Auto) (0-5) /lpf Urine Bacteria (Auto) (Negative) Salicylates (2.8-20) mg/dl Urine Opiates Screen (Neg) Ur Methadone, Qual (Neg) Acetaminophen (10-30) ug/ml Urine Barbiturates (Neg) Ur Phencyclidine (PCP) (Neg) U Amphetamin/Meth Scrn (Neg) MDMA (Ecstasy) Screen (Neg) U Benzodiazepines Scrn (Neg) Ur Cocaine Metabolite (Neg) U Marijuana (THC) Screen (Neg) Ethyl Alcohol mg/dL (0-3) mg/dl Blood Type Antibody Screen 08/29/18 08/29/18 08/29/18 Range/Units 06:18 08:13 08:22 WBC (4.8-10.8) K/uL RBC (4.2-5.4) M/uL Hgb (12.0-16.0) g/dL Hct (37-47) % MCV (80-100) fL MCH (25-34) pg MCHC (32-36) g/dL RDW Std Deviation (36.4-46.3) fL RDW Coeff of Michelle (11.5-14.5) % Plt Count (130-400) K/uL MPV (7.4-10.4) fL Immature Gran % (Auto) % Neut % (Auto) % Lymph % (Auto) % [place] % (Auto) % Eos % (Auto) % Baso % (Auto) % Immature Gran # (Auto) (0.00-0.02) K/uL Neut # (Auto) (1.4-6.5) K/uL Lymph # (Auto) (1.2-3.4) K/uL [place] # (Auto) (0.11-0.59) K/uL Eos # (Auto) (0-0.5) K/uL Baso # (Auto) (0-0.2) K/uL Absolute Nucleated RBC (0-0) K/uL Nucleated RBC % (auto) % Platelet Estimate (Normal) Giant Platelets Polychromasia Target Cells PT 16.9 H (9.0-12.0) Seconds INR 1.7 H (0.9-1.1) Sodium 134 L D (136-145) mmol/L Potassium 3.9 (3.5-5.1) mmol/L Chloride 103 (98-107) mmol/L Carbon Dioxide 30 (21-32) mmol/L Anion Gap 1.0 L (3-11) BUN 4 L (7-18) mg/dl Creatinine 0.64 (0.6-1.2) mg/dl Est Cr Clr Drug Dosing 121.3 ml/min Est GFR ( Amer) 121.4 Est GFR (Non-Af Amer) 104.8 BUN/Creatinine Ratio 5.6 L (10-20) Glucose 110 H (70-99) mg/dl Calcium 7.3 L (8.5-10.1) mg/dl Magnesium (1.8-2.4) mg/dl Total Bilirubin 2.0 H D (0.2-1) mg/dl AST 148 H (15-37) U/L ALT 54 (12-78) U/L Alkaline Phosphatase 171 H (45-117) U/L Troponin I (0-0.045) ng/ml Total Protein 7.1 (6.4-8.2) gm/dl Albumin 1.9 L (3.4-5.0) gm/dl Globulin 5.2 H (2.5-4.0) gm/dl Albumin/Globulin Ratio 0.4 L (0.9-2) Folate (>5.38) ng/ml Urine Color Urine Appearance (Clear) Urine pH (4.5-7.5) Ur Specific [place] (1.000-1.030) Urine Protein (Negative) Urine Glucose (UA) (Negative) Urine Ketones (Negative) Urine Blood (Negative) Urine Nitrite (Negative) Urine Bilirubin (Negative) Urine Urobilinogen (Negative) Ur Leukocyte Esterase (Negative) Urine WBC (Auto) (0-5) /hpf Urine RBC (Auto) (0-4) /hpf U Hyaline Cast (Auto) (0-5) /lpf U Epithel Cells (Auto) (0-5) /lpf Urine Bacteria (Auto) (Negative) Salicylates (2.8-20) mg/dl Urine Opiates Screen (Neg) Ur Methadone, Qual (Neg) Acetaminophen (10-30) ug/ml Urine Barbiturates (Neg) Ur Phencyclidine (PCP) (Neg) U Amphetamin/Meth Scrn (Neg) MDMA (Ecstasy) Screen (Neg) U Benzodiazepines Scrn (Neg) Ur Cocaine Metabolite (Neg) U Marijuana (THC) Screen (Neg) Ethyl Alcohol mg/dL (0-3) mg/dl Blood Type A Positive Antibody Screen NEGATIVE 08/30/18 08/30/18 Range/Units 05:53 05:53 WBC 2.13 L (4.8-10.8) K/uL RBC 2.87 L (4.2-5.4) M/uL Hgb 9.6 L (12.0-16.0) g/dL Hct 28.3 L (37-47) % MCV 98.6 (80-100) fL MCH 33.4 (25-34) pg MCHC 33.9 (32-36) g/dL RDW Std Deviation 56.1 H (36.4-46.3) fL RDW Coeff of Michelle 15.6 H (11.5-14.5) % Plt Count 21 L* (130-400) K/uL MPV (7.4-10.4) fL Immature Gran % (Auto) 0.0 % Neut % (Auto) 39.4 % Lymph % (Auto) 42.3 % [place] % (Auto) 12.2 % Eos % (Auto) 5.6 % Baso % (Auto) 0.5 % Immature Gran # (Auto) 0.00 (0.00-0.02) K/uL Neut # (Auto) 0.84 L* (1.4-6.5) K/uL Lymph # (Auto) 0.90 L (1.2-3.4) K/uL [place] # (Auto) 0.26 (0.11-0.59) K/uL Eos # (Auto) 0.12 (0-0.5) K/uL Baso # (Auto) 0.01 (0-0.2) K/uL Absolute Nucleated RBC (0-0) K/uL Nucleated RBC % (auto) % Platelet Estimate (Normal) Giant Platelets 1+ Polychromasia Target Cells PT (9.0-12.0) Seconds INR (0.9-1.1) Sodium 136 (136-145) mmol/L Potassium 3.8 (3.5-5.1) mmol/L Chloride 103 (98-107) mmol/L Carbon Dioxide 30 (21-32) mmol/L Anion Gap 2.0 L (3-11) BUN 3 L (7-18) mg/dl Creatinine 0.70 (0.6-1.2) mg/dl Est Cr Clr Drug Dosing 110.9 ml/min Est GFR ( Amer) 117.9 Est GFR (Non-Af Amer) 101.7 BUN/Creatinine Ratio 3.7 L (10-20) Glucose 139 H (70-99) mg/dl Calcium 8.0 L (8.5-10.1) mg/dl Magnesium (1.8-2.4) mg/dl Total Bilirubin 2.2 H (0.2-1) mg/dl AST 114 H (15-37) U/L ALT 47 (12-78) U/L Alkaline Phosphatase 161 H (45-117) U/L Troponin I (0-0.045) ng/ml Total Protein 7.4 (6.4-8.2) gm/dl Albumin 1.9 L (3.4-5.0) gm/dl Globulin 5.5 H (2.5-4.0) gm/dl Albumin/Globulin Ratio 0.3 L (0.9-2) Folate (>5.38) ng/ml Urine Color Urine Appearance (Clear) Urine pH (4.5-7.5) Ur Specific [place] (1.000-1.030) Urine Protein (Negative) Urine Glucose (UA) (Negative) Urine Ketones (Negative) Urine Blood (Negative) Urine Nitrite (Negative) Urine Bilirubin (Negative) Urine Urobilinogen (Negative) Ur Leukocyte Esterase (Negative) Urine WBC (Auto) (0-5) /hpf Urine RBC (Auto) (0-4) /hpf U Hyaline Cast (Auto) (0-5) /lpf U Epithel Cells (Auto) (0-5) /lpf Urine Bacteria (Auto) (Negative) Salicylates (2.8-20) mg/dl Urine Opiates Screen (Neg) Ur Methadone, Qual (Neg) Acetaminophen (10-30) ug/ml Urine Barbiturates (Neg) Ur Phencyclidine (PCP) (Neg) U Amphetamin/Meth Scrn (Neg) MDMA (Ecstasy) Screen (Neg) U Benzodiazepines Scrn (Neg) Ur Cocaine Metabolite (Neg) U Marijuana (THC) Screen (Neg) Ethyl Alcohol mg/dL (0-3) mg/dl Blood Type Antibody Screen Imaging Data Radiologist's Impression: Radiology results as stated below per my review and the radiologist's interpretation: CT head/brain wo con CLINICAL HISTORY: 47 years-old Female with AMS. Acutely altered mental status TECHNIQUE: Multiple axial CT images of the head were obtained without contrast. A dose lowering technique was utilized adhering to the principles of ALARA. CT DOSE: 1074.96 mGy.cm COMPARISON: CT head 06/17/2018. FINDINGS: Motion degraded exam. No acute intracranial hemorrhage, midline shift, intracranial mass, hydrocephalus, territorial ischemia or abnormal extra-axial collection. The calvarium is intact. The paranasal sinuses, mastoid air cells, and middle ear cavities are clear. IMPRESSION: No acute intracranial abnormality. The above report was generated using voice recognition software. It may contain grammatical, syntax or spelling errors. Electronically signed by: Sam Etienne M.D. 08/27/2018 10:19 PM ECG Data Attestation: I personally reviewed and interpreted this ECG as follows: Indication: toxicologic Rate (beats per minute): 119 Rhythm: sinus tachycardia Findings: + other (left atrial enlargement); no acute ischemic change and no ectopy Blood Pressure Blood Pressure Findings: Normal blood pressure MDM Narrative This pt was evaluated and appeared to be in no distress. IV access was obtained and lab work was drawn. IVF were initiated, pt was given narcan IV with some improvement in MS. CT head was performed and reveals no evidence of acute abnl. Pt is found to have a CAMILA of 272. Later pt admitted to "doing a piece of suboxone" by snorting it. A banana bag was ordered. UA is positive and pt was medicated with 1 gm of ceftriaxone IV. Pt is well known at our institution and was d/w the hospitalist for further management. Impression & Plan Alcohol dependence, Polysubstance abuse, Acute alteration in mental status Discharge Plan Visit Data *Final* Discharge Date/Time: 08/28/18 02:35 Chief Complaint: Unresponsive Stated Complaint: unresponsive ED Provider: Krissy,Nga B Discharge Problem: Alcohol dependence, Polysubstance abuse, Acute alteration in mental status Patient Disposition: Admitted As Inpatient Discharge Instructions Interventions: ED Discharge Assessment Last Done: 08/28/18 02:35 Discharge Problem: Alcohol dependence Qualifiers: Substance use status: with intoxication Complication of substance-induced con dition: with unspecified complication Qualified Code(s): F10.229 - Alcohol dependence with intoxication, unspecified The scribe's documentation has been prepared under my direction and personally reviewed by me in its entirety. I confirm that the note above accurately reflects all work, treatment, procedures, and medical decision making performed by me.
[2018-08-28] MEDS ORDERED: LORazepam 1 MG/2 ML VIAL IV PRN (02:40)
[2018-08-28] MEDS: D5W AND 1/2NSS + 20MEQ KCL 20 MEQ/1,000 ML BAG IV SCH ×3 (02:59→23:26)
--- NOTE | 2018-08-28 03:34 | History & Physical Report ---
Date of Service August 28, 2018 Assessment & Plan (1) Alcohol withdrawal: 47 yo F with history of alcohol abuse , multiple admissions for alcohol withdrawal reports 3 day history of non-bloody emesis -Admit to Med Surg -Given banana bad, multivitamin in ED -Alcohol withdrawal protocol with PRN IV Ativan -Zofran, Reglan prn for N/V -IV D5W (2) Vomiting: prn anti-emetics as above (3) Liver cirrhosis, alcoholic: -Secondary to alcohol abuse and hepatitis C -LFTs are similar to previous presentations, -INR 1.7 AST 214 ALT 72 (4) Seizures: reported history of seizure no seizure activity in hospital seizure precautions (5) Abnormal urinalysis: patient reports urinary urgency , frequency given Rocephin in ED Start Rocephin daily, F/u urine cx (6) DVT prophylaxis: contraindicated given elevated INR (7) Pancytopenia: likely related to chronic alcoholism no significantly different than baseline monitor daily cbc's History of Present Illness Chief Complaint: Alcohol Withdrawal Primary Care Provider: Marjorie Del Castillo 47 yo F reports 3 day history of non-bloody emesis. Patient was unable to take home zofran because she ran out. She currently drinks a case a day of beer. She also report palpitations, tremor, sweating, chills, abdominal discomfort, sob. She also reports constipation. She has been drinking since age 5. She is not interested in inpatient alcoholic rehab at this time . Patient arrived in ED afebrile, tachycardic, BP stable, pancytopenic on arrival which is her baseline, K 3.4Cr unremarkable, AST 214, ALT 72, Alk phos 202, INR 1.7, Alcohol level of 285.5, CT head unremarkable Patient was discharged for similar presentation 07/03/18. Inpatient rehab was recommended but patient declined and instead sought home health Allergies Allergy/AdvReac Type Severity Reaction Status Date / Time acetaminophen [From Tylenol] AdvReac Intermediate HX Verified 08/27/18 21:36 CIRRHOSIS NSAIDS (Non-Steroidal AdvReac Intermediate HX Verified 06/18/18 00:17 Anti-Inflamma CIRRHOSIS phenytoin AdvReac Intermediate LOSS OF Verified 08/27/18 21:36 EQUILIBRIUM Home Medications Home Medications Medication Instructions Recorded Confirmed Type Unobtainable 05/01/19 05/01/19 History diazepam 5 mg PO DIRECTED 08/27/18 08/27/18 History gabapentin 400 mg PO QID 08/27/18 08/27/18 History pantoprazole 40 mg PO DAILY 08/27/18 08/27/18 History Past Med/Surg History Medical History Alcohol withdrawal Hypokalemia Seizures Pancreatitis (Chronic) Liver failure Schizoaffective disorder (Chronic) Arthritis Depression Hypertension Liver disease Thyroid disease Gastritis Liver cancer (Chronic) Alcoholism Acute recurrent pancreatitis (Acute Unknown) 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 hepatitis C (Chronic Unknown) Chronic pancreatitis (Chronic Unknown) Cirrhosis, alcoholic (Chronic) Chronic renal failure, stage 3 (moderate) (Chronic) Polysubstance abuse (Acute) Depression with suicidal ideation (Acute) TIA (transient ischemic attack) (Acute) Hypotension (Acute) Neutropenia (Acute) Pancytopenia (Acute) Anemia (Acute) Hypocalcemia (Acute) Hypernatremia (Acute) Alcohol withdrawal Cholecystectomy planned Cholecystectomy planned Hyponatremia Surgical History Cholecystectomy planned History of appendectomy Family History Mother Multiple sclerosis Father , age 52 Acute coronary occlusion without mycocardial infarction Social History Preferred Language: [place] Communication Ability: Effective Visual Impairment: No Limitations Trainman Required: No Beliefs That Will Affect Care: None marital status: Current Living Situation: Significant Other current occupational status: unemployed and disabled Other Information That Helps Us Care for You: No Feels Safe at Home: Yes Safety Concerns: Feels Safe At This Time Smoking Status: Current every day smoker Tobacco Type: cigarettes Cigarettes Per Day: 20 Do You Dip or Chew Tobacco: No Second Hand Exposure: No Tobacco Cessation Education Requested by Patient: No Hx Alcohol Use: Yes Alcohol type: beer Hx Substance Use: Yes (snorted subutex today) substance use type: does not use Review of Systems Review of Systems: All systems reviewed & are unremarkable except as noted in HPI & below Physical Exam Physical Exam: General Adult Exam GENERAL APPEARANCE: generalized tremor, alert and cooperative HEAD: normocephalic. EYES: PERRL, EOMI, vision is grossly intact. EARS: hearing grossly intact. NECK: Neck supple, non-tender without lymphadenopathy CARDIAC: Normal S1 and S2. No S3, S4 or murmurs. tachycardic LUNGS: Clear to auscultation and percussion without rales, rhonchi, wheezing or diminished breath sounds. ABDOMEN: Positive bowel sounds. Soft, nondistended, nontender. No guarding or rebound. No masses. LOWER EXTREMITY: no edema NEUROLOGICAL: CN II-XII intact grossly . moves extremities SKIN: Skin normal color Results & Data Vital Signs (Past 12 Hours) Vital Signs Temp Pulse Pulse Resp BP BP Pulse Ox 08/28/18 02:35 98 H 16 131/95 95 08/28/18 01:58 98 H 14 131/95 94 08/28/18 00:39 105 H 16 135/95 96 08/27/18 23:15 111 H 16 137/98 95 08/27/18 21:30 114 H 14 142/83 H 98 08/27/18 20:35 124 H 16 132/92 100 08/27/18 20:21 100 08/27/18 19:54 37 C 115 H 8 L 136/95 100 Code Status & VTE Plan Code Status Full code VTE Prophylaxis Plan VTE Prophylaxis will be ordered: Yes Reason for no VTE drug order: Contraindicated Supervising Physician Co-Signing Physician Notes Attending addendum: I have physically seen this patient, have supervised the medical residents activities, and agree with the H&P unless as otherwise noted. Assessment and Plan: Alcohol withdrawal/alcohol dependency- Admit to med telemetry. Alcohol withdrawal protocol with IV Ativan as needed. Zofran 4 mg IV every 6 hours as needed. Banana bag daily. Liver cirrhosis/alcohol abuse/hepatitis C/coagulopathy-- Laboratories overall stable. Follow serially. Remainder of orders and notations as noted. Resident Activity Tracking Resident Involvement: Resident Care Provided Care Provided: Adult Hospital Medicine (1) Alcohol withdrawal Complication of substance-induced condition: with unspecified complication Qualified Code(s): F10.239 - Alcohol dependence with withdrawal, unspecified (2) Vomiting Nausea presence: with nausea Vomiting Intractability: non-intractable Vomiting type: unspecified Qualified Code(s): R11.2 - Nausea with vomiting, unspecified
[2018-08-28] MEDS ORDERED: ATIVAN IV ALCOHOL WITHDRAWL IV SCH (03:45)
[2018-08-28] MEDS: LORazepam 2 MG/4 ML VIAL IV PRN ×4 (04:03→20:58)
[2018-08-28] MEDS: METOCLOPRAMIDE HCL INJ 5 MG/ML 2 ML VIAL IV SCH ×4 (05:21→21:46)
[2018-08-28 06:46] LABS: Hematocrit (blood only) 25.1 % (37-47); Hemoglobin 8.4 g/dL (12.0-16.0); Mean Corpuscular Hgb Conc 33.5 g/dL (32-36); Mean Corpuscular Volume 99.6 fL (80-100); Mean Platelet Volume 11.5 fL (7.4-10.4); Platelet Count 33 K/uL (130-400); RDW Coefficient of Variation 16.6 % (11.5-14.5); RDW Standard Deviation 60.1 fL (36.4-46.3); Red Blood Count 2.52 M/uL (4.2-5.4); White Blood Count 2.16 K/uL (4.8-10.8)
[2018-08-28 07:03] LABS: BUN Creatinine Ratio 8.3 (10-20); Calcium 6.9 mg/dl (8.5-10.1); Creatinine Clr Calc Pharmacy 152.3 ml/min; Est GFR (African American) 130.9; Est GFR (Non-African American) 112.9; Potassium 3.9 mmol/L (3.5-5.1)
[2018-08-28 07:09] LABS: Basophils # (auto) 0.02 K/uL (0-0.2); Basophils % (auto) 0.9 %; Eosinophils # (auto) 0.01 K/uL (0-0.5); Eosinophils % (auto) 0.5 %; Lymphocytes # (auto) 1.04 K/uL (1.2-3.4); Lymphocytes % (auto) 48.1 %; Monocytes # (auto) 0.19 K/uL (0.11-0.59); Monocytes % (auto) 8.8 %; Neutrophils % (auto) 41.7 %; Polychromasia 1+; Target Cells 1+
[2018-08-28 07:15] LABS: Albumin Globulin Ratio 0.4 (0.9-2); Bilirubin,Total 1.2 mg/dl (0.2-1)
[2018-08-28] MEDS: ONDANSETRON INJ 2 MG/ML 2 ML VIAL IV PRN ×2 (08:24→14:23)
[2018-08-28] MEDS: PANTOprazole 40 MG TAB PO SCH (08:26)
[2018-08-28] MEDS: LORazepam 1 MG/2 ML VIAL IV PRN (08:28)
[2018-08-28] MEDS ORDERED: cefTRIAXone SODIUM 1,000 MG in DEXTROSE 5% 50 ML IV SCH (08:30)
--- NOTE | 2018-08-28 10:00 | Family Medicine Progress Note ---
Date of Service August 28, 2018 Assessment & Plan (1) Alcohol withdrawal: 47 yo F with history of alcohol abuse , multiple admissions for alcohol withdrawal reports 3 day history of non-bloody emesis -Admited to Med Surg -Given banana bag, multivitamin in ED -Alcohol withdrawal protocol with PRN IV Ativan -Zofran, Reglan prn for N/V -IV D5W (2) Vomiting: prn anti-emetics as above (3) Liver cirrhosis, alcoholic: -Secondary to alcohol abuse and hepatitis C -LFTs are similar to previous presentations, -INR 1.7 AST 165 ALT 60 (4) Seizures: reported history of seizure no seizure activity in hospital seizure precautions (5) Abnormal urinalysis: patient reports urinary urgency , frequency given Rocephin in ED Start Rocephin daily, F/u urine cx (6) DVT prophylaxis: contraindicated given elevated INR (7) Pancytopenia: Patient has pancytopenia secondary to liver cirrhosis. Liver cirrhosis become so bad that it has caused her to become profoundly cytopenic -ANC this morning was 0.90, nursing was concerned placed on neutropenic precautions -Likely DC neutropenic precautions tomorrow FENa: Regular diet Code Status: Full code DVT PPX: Contraindicated secondary to elevated INR and abnormal LFTs Dispo: Fourth floor MedSurg until stable then hopefully inpatient alcohol rehab Supervising Physician Co-Signing Physician Notes I personally examined the patient and verified all cooper points of history and exam, discussed case, and agree with decision making with Dr Baptiste. Feeling anxious and shaky Vitals noted, in general she is shaking visibly, and appears quite anxious. Breathing is unlabored, her mental status appears to be overall intact. Alcohol withdrawalfortunately discussion with nursing her tremors actually stop when she is asleep, her mental status also seems sound, so it appears this probably a combination of alcohol withdrawal and anxiety. Nonetheless she does require ongoing treatment. Continue CIWA scale and supportive care, continue thiamine and folate. Subjective Patient laying in bed this morning, shaking and visibly withdrawing from alcohol. Had a lengthy conversation with the patient about how she arrived in her current situation and she injured it 7 years. reports numerous inpatient rehab attempts, states she returns to alcohol consumption after rehab because her pain is not controlled and they will give her any medications on discharge. We discussed addressed as a two-way street and then order for those types of medications or for us to evaluate her pain she must demonstrate that she can be alcohol free. We talked about the challenges to her remaining EtOH free, they related to her current habit and friend group, pain, and other social issues. She is motivated to stop alcohol for her son and grand children. She does not want them to suffer on her account or feel bad for her. We discussed stent of inpatient rehab upon discharge she is contemplating it. We will continue to work with her over the next few days in hopes of encouraging her to make life changes. Patient tolerating diet, voiding, stooling, sleeping appropriately. Acute lashae rns at present are for alcohol withdrawal seizures. Patient endorses abdominal pain, bone pain, Denies fevers chills diarrhea constipation congestion shortness of breath chest pain chest pressure or other signs or symptoms of acute process We ended the conversation on a mutual agreement that today was the beginning of the rest of her life Physical Exam Physical Exam: General: Patient in distress with shaking and signs and symptoms of alcohol withdrawal Eyes: EOMI/PERRLA Neck: Midline normal to visual inspect Chest: Clear to auscultation bilaterally Cardiac: Tachycardic, regular rhythm, normal S1 normal S2, no murmurs rubs GI: Soft nontender nondistended normal bowel sounds MSK: All extremities Skin: Intact Neuro: AAO x4 Psych: Calm cooperative, interested in changing her life Results & Data Vital Signs (Past 12 Hours) Vital Signs Temp Pulse Pulse Resp BP BP BP 08/28/18 07:00 36.7 C 89 18 104/69 08/28/18 05:24 36.7 C 91 H 16 101/66 08/28/18 03:40 36.7 C 112 H 18 122/71 08/28/18 02:50 36.7 C 120 H 20 124/74 08/28/18 02:35 98 H 16 131/95 08/28/18 01:58 98 H 14 131/95 08/28/18 00:39 105 H 16 135/95 08/27/18 23:15 111 H 16 137/98 Pulse Ox 08/28/18 07:00 94 08/28/18 05:24 96 08/28/18 03:40 96 08/28/18 02:50 95 08/28/18 02:35 95 08/28/18 01:58 94 08/28/18 00:39 96 08/27/18 23:15 95 Laboratory Results 08/28/18 08/28/18 08/28/18 Range/Units 06:17 06:17 02:53 WBC 2.16 L (4.8-10.8) K/uL RBC 2.52 L (4.2-5.4) M/uL Hgb 8.4 L (12.0-16.0) g/dL Hct 25.1 L (37-47) % MCV 99.6 (80-100) fL MCH 33.3 (25-34) pg MCHC 33.5 (32-36) g/dL RDW Std Deviation 60.1 H (36.4-46.3) fL RDW Coeff of Michelle 16.6 H (11.5-14.5) % Plt Count 33 L (130-400) K/uL MPV 11.5 H (7.4-10.4) fL Immature Gran % (Auto) 0.0 % Neut % (Auto) 41.7 % Lymph % (Auto) 48.1 % [place] % (Auto) 8.8 % Eos % (Auto) 0.5 % Baso % (Auto) 0.9 % Immature Gran # (Auto) 0.00 (0.00-0.02) K/uL Neut # (Auto) 0.90 L* (1.4-6.5) K/uL Lymph # (Auto) 1.04 L (1.2-3.4) K/uL Carolina # (Auto) 0.19 (0.11-0.59) K/uL Eos # (Auto) 0.01 (0-0.5) K/uL Baso # (Auto) 0.02 (0-0.2) K/uL Polychromasia 1+ Target Cells 1+ PT (9.0-12.0) Seconds INR (0.9-1.1) Sodium 143 (136-145) mmol/L Potassium 3.9 (3.5-5.1) mmol/L Chloride 112 H (98-107) mmol/L Carbon Dioxide 29 (21-32) mmol/L Anion Gap 2.0 L (3-11) BUN 4 L (7-18) mg/dl Creatinine 0.51 L (0.6-1.2) mg/dl Est Cr Clr Drug Dosing 152.3 ml/min Est GFR ( Amer) 130.9 Est GFR (Non-Af Amer) 112.9 BUN/Creatinine Ratio 8.3 L (10-20) Glucose 123 H (70-99) mg/dl Calcium 6.9 L (8.5-10.1) mg/dl Magnesium (1.8-2.4) mg/dl Total Bilirubin 1.2 H (0.2-1) mg/dl AST 165 H (15-37) U/L ALT 60 (12-78) U/L Alkaline Phosphatase 163 H (45-117) U/L Troponin I (0-0.045) ng/ml Total Protein 7.0 (6.4-8.2) gm/dl Albumin 2.0 L (3.4-5.0) gm/dl Globulin 5.0 H (2.5-4.0) gm/dl Albumin/Globulin Ratio 0.4 L (0.9-2) Folate > 24.00 (>5.38) ng/ml Urine Color Urine Appearance (Clear) Urine pH (4.5-7.5) Ur Specific Spring (1.000-1.030) Urine Protein (Negative) Urine Glucose (UA) (Negative) Urine Ketones (Negative) Urine Blood (Negative) Urine Nitrite (Negative) Urine Bilirubin (Negative) Urine Urobilinogen (Negative) Ur Leukocyte Esterase (Negative) Urine WBC (Auto) (0-5) /hpf Urine RBC (Auto) (0-4) /hpf U Hyaline Cast (Auto) (0-5) /lpf U Epithel Cells (Auto) (0-5) /lpf Urine Bacteria (Auto) (Negative) Salicylates (2.8-20) mg/dl Urine Opiates Screen (Neg) Ur Methadone, Qual (Neg) Acetaminophen (10-30) ug/ml Urine Barbiturates (Neg) Ur Phencyclidine (PCP) (Neg) U Amphetamin/Meth Scrn (Neg) MDMA (Ecstasy) Screen (Neg) U OH-Alprazolam Confrm U Benzodiazepines Scrn (Neg) 7-Amino Clonazepam Ur Nordiazepam Confirm U OH-ethylflurazepam U Lorazepam Cnf GC/MS U Oxazepam Confm GC/MS Ur Temazepam Confirm U OH-Triazolam Confirm U OH-Midazolam Confirm Ur Cocaine Metabolite (Neg) U Marijuana (THC) Screen (Neg) Ethyl Alcohol mg/dL (0-3) mg/dl 08/27/18 08/27/18 08/27/18 Range/Units 20:25 20:25 20:25 WBC 3.59 L (4.8-10.8) K/uL RBC 2.97 L (4.2-5.4) M/uL Hgb 9.9 L (12.0-16.0) g/dL Hct 29.4 L (37-47) % MCV 99.0 (80-100) fL MCH 33.3 (25-34) pg MCHC 33.7 (32-36) g/dL RDW Std Deviation 60.2 H (36.4-46.3) fL RDW Coeff of Michelle 16.7 H (11.5-14.5) % Plt Count 41 L (130-400) K/uL MPV 10.9 H (7.4-10.4) fL Immature Gran % (Auto) 0.0 % Neut % (Auto) 42.1 % Lymph % (Auto) 48.7 % Carolina % (Auto) 6.7 % Eos % (Auto) 1.9 % Baso % (Auto) 0.6 % Immature Gran # (Auto) 0.00 (0.00-0.02) K/uL Neut # (Auto) 1.51 (1.4-6.5) K/uL Lymph # (Auto) 1.75 (1.2-3.4) K/uL [place] # (Auto) 0.24 (0.11-0.59) K/uL Eos # (Auto) 0.07 (0-0.5) K/uL Baso # (Auto) 0.02 (0-0.2) K/uL Polychromasia Target Cells PT (9.0-12.0) Seconds INR (0.9-1.1) Sodium 144 (136-145) mmol/L Potassium 3.4 L (3.5-5.1) mmol/L Chloride 111 H (98-107) mmol/L Carbon Dioxide 27 (21-32) mmol/L Anion Gap 7.0 (3-11) BUN 4 L (7-18) mg/dl Creatinine 0.64 (0.6-1.2) mg/dl Est Cr Clr Drug Dosing 113.5 ml/min Est GFR ( Amer) 121.4 Est GFR (Non-Af Amer) 104.8 BUN/Creatinine Ratio 6.2 L (10-20) Glucose 134 H (70-99) mg/dl Calcium 7.9 L (8.5-10.1) mg/dl Magnesium (1.8-2.4) mg/dl Total Bilirubin 1.8 H (0.2-1) mg/dl AST 214 H (15-37) U/L ALT 72 (12-78) U/L Alkaline Phosphatase 202 H (45-117) U/L Troponin I (0-0.045) ng/ml Total Protein 8.2 (6.4-8.2) gm/dl Albumin 2.4 L (3.4-5.0) gm/dl Globulin 5.8 H (2.5-4.0) gm/dl Albumin/Globulin Ratio 0.4 L (0.9-2) Folate (>5.38) ng/ml Urine Color Urine Appearance (Clear) Urine pH (4.5-7.5) Ur Specific Spring (1.000-1.030) Urine Protein (Negative) Urine Glucose (UA) (Negative) Urine Ketones (Negative) Urine Blood (Negative) Urine Nitrite (Negative) Urine Bilirubin (Negative) Urine Urobilinogen (Negative) Ur Leukocyte Esterase (Negative) Urine WBC (Auto) (0-5) /hpf Urine RBC (Auto) (0-4) /hpf U Hyaline Cast (Auto) (0-5) /lpf U Epithel Cells (Auto) (0-5) /lpf Urine Bacteria (Auto) (Negative) Salicylates (2.8-20) mg/dl Urine Opiates Screen (Neg) Ur Methadone, Qual (Neg) Acetaminophen (10-30) ug/ml Urine Barbiturates (Neg) Ur Phencyclidine (PCP) (Neg) U Amphetamin/Meth Scrn (Neg) MDMA (Ecstasy) Screen (Neg) U OH-Alprazolam Confrm U Benzodiazepines Scrn (Neg) 7-Amino Clonazepam Ur Nordiazepam Confirm U OH-ethylflurazepam U Lorazepam Cnf GC/MS U Oxazepam Confm GC/MS Ur Temazepam Confirm U OH-Triazolam Confirm U OH-Midazolam Confirm Ur Cocaine Metabolite (Neg) U Marijuana (THC) Screen (Neg) Ethyl Alcohol mg/dL 285.5 H (0-3) mg/dl 08/27/18 08/27/18 08/27/18 Range/Units 20:25 20:25 20:25 WBC (4.8-10.8) K/uL RBC (4.2-5.4) M/uL Hgb (12.0-16.0) g/dL Hct (37-47) % MCV (80-100) fL MCH (25-34) pg MCHC (32-36) g/dL RDW Std Deviation (36.4-46.3) fL RDW Coeff of Michelle (11.5-14.5) % Plt Count (130-400) K/uL MPV (7.4-10.4) fL Immature Gran % (Auto) % Neut % (Auto) % Lymph % (Auto) % [place] % (Auto) % Eos % (Auto) % Baso % (Auto) % Immature Gran # (Auto) (0.00-0.02) K/uL Neut # (Auto) (1.4-6.5) K/uL Lymph # (Auto) (1.2-3.4) K/uL [place] # (Auto) (0.11-0.59) K/uL Eos # (Auto) (0-0.5) K/uL Baso # (Auto) (0-0.2) K/uL Polychromasia Target Cells PT 16.7 H (9.0-12.0) Seconds INR 1.7 H (0.9-1.1) Sodium (136-145) mmol/L Potassium (3.5-5.1) mmol/L Chloride (98-107) mmol/L Carbon Dioxide (21-32) mmol/L Anion Gap (3-11) BUN (7-18) mg/dl Creatinine (0.6-1.2) mg/dl Est Cr Clr Drug Dosing ml/min Est GFR ( Amer) Est GFR (Non-Af Amer) BUN/Creatinine Ratio (10-20) Glucose (70-99) mg/dl Calcium (8.5-10.1) mg/dl Magnesium 2.0 (1.8-2.4) mg/dl Total Bilirubin (0.2-1) mg/dl AST (15-37) U/L ALT (12-78) U/L Alkaline Phosphatase (45-117) U/L Troponin I < 0.015 (0-0.045) ng/ml Total Protein (6.4-8.2) gm/dl Albumin (3.4-5.0) gm/dl Globulin (2.5-4.0) gm/dl Albumin/Globulin Ratio (0.9-2) Folate (>5.38) ng/ml Urine Color Urine Appearance (Clear) Urine pH (4.5-7.5) Ur Specific Spring (1.000-1.030) Urine Protein (Negative) Urine Glucose (UA) (Negative) Urine Ketones (Negative) Urine Blood (Negative) Urine Nitrite (Negative) Urine Bilirubin (Negative) Urine Urobilinogen (Negative) Ur Leukocyte Esterase (Negative) Urine WBC (Auto) (0-5) /hpf Urine RBC (Auto) (0-4) /hpf U Hyaline Cast (Auto) (0-5) /lpf U Epithel Cells (Auto) (0-5) /lpf Urine Bacteria (Auto) (Negative) Salicylates < 1.7 L (2.8-20) mg/dl Urine Opiates Screen (Neg) Ur Methadone, Qual (Neg) Acetaminophen < 2 L (10-30) ug/ml Urine Barbiturates (Neg) Ur Phencyclidine (PCP) (Neg) U Amphetamin/Meth Scrn (Neg) MDMA (Ecstasy) Screen (Neg) U OH-Alprazolam Confrm U Benzodiazepines Scrn (Neg) 7-Amino Clonazepam Ur Nordiazepam Confirm U OH-ethylflurazepam U Lorazepam Cnf GC/MS U Oxazepam Confm GC/MS Ur Temazepam Confirm U OH-Triazolam Confirm U OH-Midazolam Confirm Ur Cocaine Metabolite (Neg) U Marijuana (THC) Screen (Neg) Ethyl Alcohol mg/dL (0-3) mg/dl 08/27/18 08/27/18 08/27/18 Range/Units 20:18 20:18 20:18 WBC (4.8-10.8) K/uL RBC (4.2-5.4) M/uL Hgb (12.0-16.0) g/dL Hct (37-47) % MCV (80-100) fL MCH (25-34) pg MCHC (32-36) g/dL RDW Std Deviation (36.4-46.3) fL RDW Coeff of Michelle (11.5-14.5) % Plt Count (130-400) K/uL MPV (7.4-10.4) fL Immature Gran % (Auto) % Neut % (Auto) % Lymph % (Auto) % [place] % (Auto) % Eos % (Auto) % Baso % (Auto) % Immature Gran # (Auto) (0.00-0.02) K/uL Neut # (Auto) (1.4-6.5) K/uL Lymph # (Auto) (1.2-3.4) K/uL [place] # (Auto) (0.11-0.59) K/uL Eos # (Auto) (0-0.5) K/uL Baso # (Auto) (0-0.2) K/uL Polychromasia Target Cells PT (9.0-12.0) Seconds INR (0.9-1.1) Sodium (136-145) mmol/L Potassium (3.5-5.1) mmol/L Chloride (98-107) mmol/L Carbon Dioxide (21-32) mmol/L Anion Gap (3-11) BUN (7-18) mg/dl Creatinine (0.6-1.2) mg/dl Est Cr Clr Drug Dosing ml/min Est GFR ( Amer) Est GFR (Non-Af Amer) BUN/Creatinine Ratio (10-20) Glucose (70-99) mg/dl Calcium (8.5-10.1) mg/dl Magnesium (1.8-2.4) mg/dl Total Bilirubin (0.2-1) mg/dl AST (15-37) U/L ALT (12-78) U/L Alkaline Phosphatase (45-117) U/L Troponin I (0-0.045) ng/ml Total Protein (6.4-8.2) gm/dl Albumin (3.4-5.0) gm/dl Globulin (2.5-4.0) gm/dl Albumin/Globulin Ratio (0.9-2) Folate (>5.38) ng/ml Urine Color Dark Yellow Urine Appearance Cloudy H (Clear) Urine pH 6.0 (4.5-7.5) Ur Specific Spring 1.015 (1.000-1.030) Urine Protein Trace H (Negative) Urine Glucose (UA) Negative (Negative) Urine Ketones Negative (Negative) Urine Blood Trace H (Negative) Urine Nitrite Positive H (Negative) Urine Bilirubin Negative (Negative) Urine Urobilinogen Negative (Negative) Ur Leukocyte Esterase 3+ H (Negative) Urine WBC (Auto) >30 H (0-5) /hpf Urine RBC (Auto) 5-10 H (0-4) /hpf U Hyaline Cast (Auto) 1-5 (0-5) /lpf U Epithel Cells (Auto) >30 H (0-5) /lpf Urine Bacteria (Auto) 4+ H (Negative) Salicylates (2.8-20) mg/dl Urine Opiates Screen Neg (Neg) Ur Methadone, Qual Neg (Neg) Acetaminophen (10-30) ug/ml Urine Barbiturates Neg (Neg) Ur Phencyclidine (PCP) Neg (Neg) U Amphetamin/Meth Scrn Neg (Neg) MDMA (Ecstasy) Screen Neg (Neg) U OH-Alprazolam Confrm Pending U Benzodiazepines Scrn Pos H (Neg) 7-Amino Clonazepam Pending Ur Nordiazepam Confirm Pending U OH-ethylflurazepam Pending U Lorazepam Cnf GC/MS Pending U Oxazepam Confm GC/MS Pending Ur Temazepam Confirm Pending U OH-Triazolam Confirm Pending U OH-Midazolam Confirm Pending Ur Cocaine Metabolite Neg (Neg) U Marijuana (THC) Screen Neg (Neg) Ethyl Alcohol mg/dL (0-3) mg/dl Medications Administered Current Inpatient Medications Potassium Chloride/Dextrose/Sod Cl (D5w And 1/2nss + 20meq Kcl) 20 meq in 1,000 mls @ 100 mls/hr IV .Q10H [facility] Stop: 09/27/18 02:44 Last Admin: 08/28/18 11:45 Dose: 100 mls/hr Documented by: Lorazepam (Ativan) 1 mg in 2 mls @ 2 mls/min IV UD PRN; Protocol PRN Reason: EtOH Withdrawl AWSS Score 6,7 Stop: 09/27/18 03:44 Last Admin: 08/28/18 08:28 Dose: 2 mls/min Documented by: Lorazepam (Ativan) 2 mg in 4 mls @ 4 mls/min IV UD PRN; Protocol PRN Reason: EtOH Withdrawl AWSS Score 8,9 Stop: 09/27/18 03:44 Last Admin: 08/28/18 12:43 Dose: 4 mls/min Documented by: Lorazepam (Ativan) 3 mg in 6 mls @ 4 mls/min IV ONCE PRN; Protocol PRN Reason: EtOH Withdrawl AWSS Score >=10 Stop: 09/27/18 03:44 Ceftriaxone Sodium 2,000 mg/ (Dextrose) 70 mls @ 140 mls/hr IV Q24H [facility] Stop: 09/02/18 11:59 Last Infusion: 08/28/18 12:18 Dose: Infused Documented by: Metoclopramide HCl (Reglan) 10 mg IV Q6H [facility] Stop: 09/27/18 03:59 Last Admin: 08/28/18 10:00 Dose: 10 mg Documented by: Ondansetron HCl (Zofran) 4 mg IV Q6H PRN PRN Reason: Nausea Stop: 09/27/18 02:39 Last Admin: 08/28/18 08:24 Dose: 4 mg Documented by: Pantoprazole Sodium (Protonix) 40 mg PO DAILY [facility] Stop: 09/27/18 08:59 Last Admin: 08/28/18 08:26 Dose: 40 mg Documented by: Resident Activity Tracking Resident Involvement: Resident Care Provided Care Provided: Adult Hospital Medicine (1) Alcohol withdrawal Complication of substance-induced condition: with unspecified complication Qualified Code(s): F10.239 - Alcohol dependence with withdrawal, unspecified (2) Vomiting Nausea presence: with nausea Vomiting Intractability: non-intractable Vomiting type: unspecified Qualified Code(s): R11.2 - Nausea with vomiting, unspecified
[2018-08-28] MEDS: cefTRIAXone SODIUM 2,000 MG in DEXTROSE 5% 50 ML IV SCH (11:45)
[2018-08-28] MEDS ORDERED: ONDANSETRON INJ 2 MG/ML 2 ML VIAL IV STA (17:55)
[2018-08-28] MEDS ORDERED: ONDANSETRON HCL 8 MG in DEXTROSE 5% 50 ML IV ONE (18:15)
[2018-08-29] MEDS: LORazepam 2 MG/4 ML VIAL IV PRN ×3 (00:58→20:25)
[2018-08-29] MEDS: METOCLOPRAMIDE HCL INJ 5 MG/ML 2 ML VIAL IV SCH ×4 (04:33→20:24)
[2018-08-29 06:58] LABS: Hematocrit (blood only) 26.1 % (37-47); Hemoglobin 8.9 g/dL (12.0-16.0); Mean Corpuscular Hgb Conc 34.1 g/dL (32-36); Mean Corpuscular Volume 98.9 fL (80-100); RDW Coefficient of Variation 15.8 % (11.5-14.5); RDW Standard Deviation 57.4 fL (36.4-46.3); Red Blood Count 2.64 M/uL (4.2-5.4); White Blood Count 1.74 K/uL (4.8-10.8)
[2018-08-29 07:14] LABS: Nucleated RBC # (auto) 0.02 K/uL (0-0); Nucleated RBC % (auto) 1.1 %; Platelet Count 26 K/uL (130-400)
[2018-08-29 07:23] LABS: Albumin Globulin Ratio 0.4 (0.9-2); Albumin Level 1.9 gm/dl (3.4-5.0); BUN Creatinine Ratio 5.6 (10-20); Calcium 7.3 mg/dl (8.5-10.1); Creatinine Clr Calc Pharmacy 121.3 ml/min; Est GFR (African American) 121.4; Est GFR (Non-African American) 104.8; Globulin 5.2 gm/dl (2.5-4.0); Potassium 3.9 mmol/L (3.5-5.1); Total Protein 7.1 gm/dl (6.4-8.2)
[2018-08-29 07:42] LABS: Basophils # (auto) 0.01 K/uL (0-0.2); Basophils % (auto) 0.6 %; Eosinophils # (auto) 0.06 K/uL (0-0.5); Eosinophils % (auto) 3.4 %; Giant Platelets 2+; Lymphocytes # (auto) 0.77 K/uL (1.2-3.4); Lymphocytes % (auto) 44.3 %; Monocytes # (auto) 0.19 K/uL (0.11-0.59); Monocytes % (auto) 10.9 %; Neutrophils # (auto) 0.71 K/uL (1.4-6.5); Neutrophils % (auto) 40.8 %; Platelet Estimate SIGNIFIC DECREASED (Normal)
[2018-08-29] MEDS: ONDANSETRON INJ 2 MG/ML 2 ML VIAL IV PRN ×2 (07:51→16:57)
[2018-08-29] MEDS: LORazepam 1 MG/2 ML VIAL IV PRN ×3 (07:52→16:57)
[2018-08-29] MEDS: PANTOprazole 40 MG TAB PO SCH (07:54)
[2018-08-29] MEDS: FOLIC ACID 1 MG in SYRINGE 9.8 ML IV SCH (07:54)
[2018-08-29] MEDS: THIAMINE HCL 100 MG in SYRINGE 9 ML IV SCH (07:54)
--- NOTE | 2018-08-29 08:04 | Family Medicine Progress Note ---
Date of Service August 29, 2018 Assessment & Plan (1) Alcohol withdrawal: #EtOH Withdrawal 47 yo F with history of alcohol abuse , multiple admissions for alcohol withdrawal reports 3 day history of non-bloody emesis -Admited to Med Surg -Given banana bag, multivitamin in ED -Alcohol withdrawal protocol with PRN IV Ativan -Zofran, Reglan prn for N/V -IV D5W -Patient has a history of recurrent admissions it appears this time as if she is very motivated to change. With Dr. Johnson are present we discussed the case where he had a patient who is gone to prison due to her known numerous medical comorbidities and was able to use the time there to abstain from alcohol and recovered nearly all of her liver function. I think this would be the ideal situation for this patient will begin the process of planting this evening her head up transfer him here to a nursing facility for continuation of care. I am cautiously optimistic she will like to go this route and hopefully be in the process of becoming free of alcohol. #Pancytopenia: Patient has pancytopenia secondary to liver cirrhosis. Liver cirrhosis become so bad that it has caused her to become profoundly cytopenic. Likely exacerbated by concurrent UTI. Currently no signs or symptoms of active bleeding secondary to his thrombocytopenia. Patient placed on neutropenic fever precautions secondary to ANC of 0.71 -ANC 0.90->0.71 neutropenic fever precautions -Thrombocytopenia Plt ct 41->33->26 -Type and cross -FFP/PLT/PRBC on hold -If patient starts to bleed FFP & PLT -If H/H trending down or hgb below 7.5 give prbc -If fobt + or si/sx of bleed give plt/ffp -consider neulasta? #UTI, E. coli pansensitive patient reports urinary urgency , frequency. UA on admission suspicious for UTI. Cultures resulted in pansensitive E. 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 Patient is tolerating her diet, Plasencia bag in place, stooling, sleeping. We continued her conversation today regarding her alcohol addiction. I explained to the patient many times I was not mad at her I was not even disappointed I was just am caring for her well-being.I was happy to hear that she had made some attempts at contacting alcohol rehabilitation centers. Patient endorsed bone pain this morning, mild fever, profound pancytopenia. It is difficult to manage the symptoms in this patient as she cannot tolerate NSAIDs, nor Tylenol due to severe cirrhosis and poor platelet function. Patient denies, fevers, chills, diarrhea, constipation, muscle aches or pains, congestion, shortness of breath, chest pressure, chest pain. Patient endorses pain, vomiting, nausea, shakiness, other withdrawal symptoms After discussion with Dr. Hayden about her previous patient will transition from inpatient hospitalization to prison secondary to horrible liver cirrhosis and poor prognosis from her chronic alcohol addiction I feel that this is the most appropriate path for our pt. I think the plan inside the patient desires to change in her chronic alcohol addiction, however I do not think that she can in her current environment. I think she goes to acute rehab becomes clean for period of time and then returns home only to be in the same environment surrounded by the same people in the same complex leading to her to drink again. I think a prolonged stay in a nursing facility would allow this patient to be removed from her environment long enough that she can make some meaningful recovery and changes to her life. Unfortunately I am signing out this patient to my colleague Dr. Jacob. I would encourage him to continue discussion about transfer to a nursing facility for alcohol addiction rehabilitation. I think the patient is nervous that if she ends up in a nursing facility she will be permanently stuck there. I think continue discussion about what a nursing facility involves, the strengths and weaknesses of 1, and the overall benefit will help sway her decision. Motivating factors to change: Her son, her grandchild, she has a desire to live, to better herself. Physical Exam Physical Exam: General: Patient in distress with shaking and signs and symptoms of alcohol withdrawal although improved from yesterday Eyes: EOMI/PERRLA Neck: Midline normal to visual inspect Chest: Clear to auscultation bilaterally Cardiac: Tachycardic, regular rhythm, normal S1 normal S2, no murmurs rubs GI: Soft nontender nondistended normal bowel sounds MSK: All extremities Skin: Intact Neuro: AAO x4 Psych: Calm cooperative, interested in changing her life Results & Data Vital Signs (Past 12 Hours) Vital Signs Temp Pulse Resp BP Pulse Ox 08/29/18 07:49 37.8 C H 113 H 16 137/92 90 08/28/18 23:00 37.5 C 109 H 20 134/80 96 Laboratory Results 08/29/18 08/29/18 Range/Units 06:18 06:18 WBC 1.74 L (4.8-10.8) K/uL RBC 2.64 L (4.2-5.4) M/uL Hgb 8.9 L (12.0-16.0) g/dL Hct 26.1 L (37-47) % MCV 98.9 (80-100) fL MCH 33.7 (25-34) pg MCHC 34.1 (32-36) g/dL RDW Std Deviation 57.4 H (36.4-46.3) fL RDW Coeff of Michelle 15.8 H (11.5-14.5) % Plt Count 26 L* (130-400) K/uL MPV 12.0 H (7.4-10.4) fL Immature Gran % (Auto) 0.0 % Neut % (Auto) 40.8 % Lymph % (Auto) 44.3 % [place] % (Auto) 10.9 % Eos % (Auto) 3.4 % Baso % (Auto) 0.6 % Immature Gran # (Auto) 0.00 (0.00-0.02) K/uL Neut # (Auto) 0.71 L* (1.4-6.5) K/uL Lymph # (Auto) 0.77 L (1.2-3.4) K/uL [place] # (Auto) 0.19 (0.11-0.59) K/uL Eos # (Auto) 0.06 (0-0.5) K/uL Baso # (Auto) 0.01 (0-0.2) K/uL Absolute Nucleated RBC 0.02 H (0-0) K/uL Nucleated RBC % (auto) 1.1 % Platelet Estimate SIGNIFIC DECREASED (Normal) Giant Platelets 2+ Sodium 134 L D (136-145) mmol/L Potassium 3.9 (3.5-5.1) mmol/L Chloride 103 (98-107) mmol/L Carbon Dioxide 30 (21-32) mmol/L Anion Gap 1.0 L (3-11) BUN 4 L (7-18) mg/dl Creatinine 0.64 (0.6-1.2) mg/dl Est Cr Clr Drug Dosing 121.3 ml/min Est GFR ( Amer) 121.4 Est GFR (Non-Af Amer) 104.8 BUN/Creatinine Ratio 5.6 L (10-20) Glucose 110 H (70-99) mg/dl Calcium 7.3 L (8.5-10.1) mg/dl Total Bilirubin 2.0 H D (0.2-1) mg/dl AST 148 H (15-37) U/L ALT 54 (12-78) U/L Alkaline Phosphatase 171 H (45-117) U/L Total Protein 7.1 (6.4-8.2) gm/dl Albumin 1.9 L (3.4-5.0) gm/dl Globulin 5.2 H (2.5-4.0) gm/dl Albumin/Globulin Ratio 0.4 L (0.9-2) Medications Administered Current Inpatient Medications Potassium Chloride/Dextrose/Sod Cl (D5w And 1/2nss + 20meq Kcl) 20 meq in 1,000 mls @ 100 mls/hr IV .Q10H [facility] Stop: 09/27/18 02:44 Last Admin: 08/28/18 23:26 Dose: 100 mls/hr Documented by: Lorazepam (Ativan) 1 mg in 2 mls @ 2 mls/min IV UD PRN; Protocol PRN Reason: EtOH Withdrawl AWSS Score 6,7 Stop: 09/27/18 03:44 Last Admin: 08/29/18 07:52 Dose: 2 mls/min Documented by: Lorazepam (Ativan) 2 mg in 4 mls @ 4 mls/min IV UD PRN; Protocol PRN Reason: EtOH Withdrawl AWSS Score 8,9 Stop: 09/27/18 03:44 Last Admin: 08/29/18 04:32 Dose: 4 mls/min Documented by: Lorazepam (Ativan) 3 mg in 6 mls @ 4 mls/min IV ONCE PRN; Protocol PRN Reason: EtOH Withdrawl AWSS Score >=10 Stop: 09/27/18 03:44 Ceftriaxone Sodium 2,000 mg/ (Dextrose) 70 mls @ 140 mls/hr IV Q24H [facility] Stop: 09/02/18 11:59 Last Infusion: 08/28/18 12:18 Dose: Infused Documented by: Folic Acid 1 mg/ Syringe 10 mls @ 5 mls/min IV QAM [facility] Stop: 09/28/18 08:59 Last Admin: 08/29/18 07:54 Dose: 5 mls/min Documented by: Thiamine HCl 100 mg/ Syringe 10 mls @ 2 mls/min IV QAM [facility] Stop: 09/28/18 08:59 Last Admin: 08/29/18 07:54 Dose: 2 mls/min Documented by: Metoclopramide HCl (Reglan) 10 mg IV Q6H [facility] Stop: 09/27/18 03:59 Last Admin: 08/29/18 04:33 Dose: 10 mg Documented by: Ondansetron HCl (Zofran) 4 mg IV Q6H PRN PRN Reason: Nausea Stop: 09/27/18 02:39 Last Admin: 08/29/18 07:51 Dose: 4 mg Documented by: Pantoprazole Sodium (Protonix) 40 mg PO DAILY [facility] Stop: 09/27/18 08:59 Last Admin: 08/29/18 07:54 Dose: 40 mg Documented by: Resident Activity Tracking Resident Involvement: Resident Care Provided Care Provided: Adult Hospital Medicine (1) Alcohol withdrawal Complication of substance-induced condition: with unspecified complication Qualified Code(s): F10.239 - Alcohol dependence with withdrawal, unspecified
[2018-08-29 08:51] LABS: INR 1.7 (0.9-1.1); Prothrombin Time 16.9 Seconds (9.0-12.0)
[2018-08-29] MEDS: D5W AND 1/2NSS + 20MEQ KCL 20 MEQ/1,000 ML BAG IV SCH ×2 (09:35→19:47)
[2018-08-29] MEDS: cefTRIAXone SODIUM 2,000 MG in DEXTROSE 5% 50 ML IV SCH (12:34)
[2018-08-29] MEDS: GABAPENTIN 300 MG CAP PO SCH ×2 (14:15→20:23)
[2018-08-29] MEDS: LORazepam 3 MG/6 ML VIAL IV PRN (20:22)
[2018-08-30] MEDS: METOCLOPRAMIDE HCL INJ 5 MG/ML 2 ML VIAL IV SCH ×4 (03:28→21:18)
[2018-08-30] MEDS: D5W AND 1/2NSS + 20MEQ KCL 20 MEQ/1,000 ML BAG IV SCH ×2 (04:55→15:39)
[2018-08-30 06:36] LABS: Albumin Level 1.9 gm/dl (3.4-5.0); BUN Creatinine Ratio 3.7 (10-20); Creatinine Clr Calc Pharmacy 110.9 ml/min; Est GFR (African American) 117.9; Est GFR (Non-African American) 101.7; Potassium 3.8 mmol/L (3.5-5.1)
[2018-08-30 06:39] LABS: Albumin Globulin Ratio 0.3 (0.9-2); Bilirubin,Total 2.2 mg/dl (0.2-1); Globulin 5.5 gm/dl (2.5-4.0); Total Protein 7.4 gm/dl (6.4-8.2)
[2018-08-30] MEDS: LORazepam 2 MG/4 ML VIAL IV PRN ×4 (06:39→21:39)
[2018-08-30 06:47] LABS: Hematocrit (blood only) 28.3 % (37-47); Hemoglobin 9.6 g/dL (12.0-16.0); Mean Corpuscular Hgb Conc 33.9 g/dL (32-36); Mean Corpuscular Volume 98.6 fL (80-100); Platelet Count 21 K/uL (130-400); RDW Coefficient of Variation 15.6 % (11.5-14.5); RDW Standard Deviation 56.1 fL (36.4-46.3); Red Blood Count 2.87 M/uL (4.2-5.4); White Blood Count 2.13 K/uL (4.8-10.8)
[2018-08-30 07:25] LABS: Basophils # (auto) 0.01 K/uL (0-0.2); Basophils % (auto) 0.5 %; Eosinophils # (auto) 0.12 K/uL (0-0.5); Eosinophils % (auto) 5.6 %; Giant Platelets 1+; Lymphocytes % (auto) 42.3 %; Monocytes # (auto) 0.26 K/uL (0.11-0.59); Monocytes % (auto) 12.2 %; Neutrophils # (auto) 0.84 K/uL (1.4-6.5); Neutrophils % (auto) 39.4 %
[2018-08-30] MEDS: GABAPENTIN 300 MG CAP PO SCH ×3 (08:34→21:18)
[2018-08-30] MEDS: PANTOprazole 40 MG TAB PO SCH (08:34)
[2018-08-30] MEDS: THIAMINE HCL 100 MG in SYRINGE 9 ML IV SCH (08:34)
[2018-08-30] MEDS: FOLIC ACID 1 MG in SYRINGE 9.8 ML IV SCH (08:34)
--- NOTE | 2018-08-30 10:53 | Family Medicine Progress Note ---
Date of Service August 30, 2018 Assessment & Plan (1) Alcohol withdrawal: EtOH Withdrawal 47 yo F with history of alcohol abuse , multiple admissions for alcohol withdrawal reports 3 day history of non-bloody emesis *Admitted to Med Surg *Given banana bag, multivitamin in ED *Alcohol withdrawal protocol with PRN IV Ativan *Zofran, Reglan prn for N/V *IV D5W *Patient with multiple relapses in the past, attempted brainstorming with patient on how to change she expresses wish to try outpatient therapy again. * Poor insight into situation, will revisit topic with her tomorrow when she is more alert Pancytopenia: Patient has pancytopenia secondary to liver cirrhosis. Liver cirrhosis become so bad that it has caused her to become profoundly cytopenic currently no signs or symptoms of active bleeding secondary to his thrombocytopenia. Patient placed on neutropenic precautions secondary to ANC of 0.8 -Thrombocytopenia Plt ct 41->33->26->21 -Type and cross -FFP/PLT/PRBC on hold -If patient starts to bleed FFP & PLT -If H/H trending down or hgb below 7.5 give prbc -If fobt + or si/sx of bleed give plt/ffp UTI *E. coli pansensitive *Continue ceftriaxone for 7 days final dose on 09/02 Vomiting: *Reglan and prn odnansetron * No vomiting reported today Liver cirrhosis, alcoholic: *Secondary to alcohol abuse and hepatitis C *LFTs are similar to previous presentations, *INR 1.7 AST 165 ALT 60 * patient needs to find a method that will work to stop drinking alcohol, will continue to strive to drive message home FENa:Regular Diet Code Status:Full Code DVT PPX:contraindicated given elevated INR Dispo: Med/Surg Supervising Physician Co-Signing Physician Notes I personally examined the patient and verified all cooper points of history and exam, discussed case, and agree with decision making with Dr Jacob. more fatigued, less shaky. Vitals noted, in general she is resting comfortably with no tremor, somewhat sleepy but will awake and converse appropriately. Breathing unlabored no accessory muscle use good effort. Alcohol withdrawalimproving. Now her plan is to do outpatient rehab, we discussed that she has tried this approach before without success, but right now with her fatigue she does not seem to have a coherent plan, just an overview idea. Subjective Ms Mary Barros is resting today. She is very somnolent following adminstration of PRN benzos and isn't able to relay a lot of information to me today but she is aware of her location and circumstance. Review of Systems Review of Systems: Unobtainable due to reduced consciousness Physical Exam Constitutional: + intoxicated appearing and + altered mental status; no acute distress Eyes: PERRL, conjunctivae normal, anicteric sclerae Respiratory: normal respiratory effort, lungs clear to auscultation Cardiovascular: Rate/Rhythm: regular rate and regular rhythm Vessels: normal peripheral pulses Gastrointestinal (Abdomen): Inspection/Auscultation: abdomen normal to inspection Percussion/Palpation: + abdomen tender (globally tender worst epigastric) and abdomen soft; no guarding, no hepatosplenomegaly and no abdominal mass Skin: no rashes and no jaundice Results & Data Vital Signs (Past 12 Hours) Vital Signs Temp Pulse Resp BP Pulse Ox 08/30/18 07:39 37.2 C 96 H 16 135/88 91 08/30/18 06:33 36.9 C 92 H 22 115/82 08/29/18 23:00 37.1 C 100 H 20 135/83 91 Resident Activity Tracking Resident Involvement: Resident Care Provided Care Provided: Adult Hospital Medicine (1) Alcohol withdrawal Complication of substance-induced condition: with unspecified complication Qualified Code(s): F10.239 - Alcohol dependence with withdrawal, unspecified
[2018-08-30] MEDS: cefTRIAXone SODIUM 2,000 MG in DEXTROSE 5% 50 ML IV SCH (11:43)
[2018-08-30] MEDS ORDERED: HALOPERIDOL LACTATE 5 MG/ML 1 ML VIAL IM STA (22:55)
--- NOTE | 2018-08-30 23:01 | Progress Note ---
Date of Service August 30, 2018 at 10:56 PM Received page from bedside nurse stating that the patient was complaining of visual and auditory hallucinations, more tremulous, and was concerned she had worsening DTs. She had just been given another dose of Ativan 2 mg. Brief chart review: Patient was admitted with a history of alcohol abuse as well is pancytopenia from her liver. Saw patient at bedside: Found patient sitting the side of the bed. She stated that she currently has visual hallucinations to include someone killing her cat and stuffing it in a tuna can. She says the last time she had visual hallucinations was around age 18. She also notes auditory hallucinations. She says that her tremors feel worse and that she thinks it is all due to alcohol withdrawal. Exam: Awake, alert, oriented to self and location. Heart rates in the 130s. She has a right-sided resting tremor. Plan: - Discussed case acutely with Dr. Alejandra. He recommended starting with Haldol 5 mg IM x1. Will reassess following this. Sam Pena MD PGY2 overnight call Results & Data Vital Signs (Past 12 Hours) Vital Signs Temp Pulse Resp BP Pulse Ox 08/30/18 11:58 36.8 C 104 H 16 126/80 91
[2018-08-31] MEDS: D5W AND 1/2NSS + 20MEQ KCL 20 MEQ/1,000 ML BAG IV SCH ×3 (00:51→20:19)
[2018-08-31] MEDS: METOCLOPRAMIDE HCL INJ 5 MG/ML 2 ML VIAL IV SCH ×3 (03:41→17:14)
[2018-08-31] MEDS: LORazepam 2 MG/4 ML VIAL IV PRN ×2 (05:58→08:32)
[2018-08-31] MEDS: THIAMINE HCL 100 MG in SYRINGE 9 ML IV SCH (08:32)
[2018-08-31] MEDS: FOLIC ACID 1 MG in SYRINGE 9.8 ML IV SCH (08:32)
[2018-08-31] MEDS: GABAPENTIN 300 MG CAP PO SCH ×3 (08:32→21:14)
[2018-08-31] MEDS: PANTOprazole 40 MG TAB PO SCH (08:32)
--- NOTE | 2018-08-31 09:42 | Family Medicine Progress Note ---
Date of Service August 31, 2018 Assessment & Plan (1) Alcohol withdrawal: EtOH Withdrawal 47 yo F with history of alcohol abuse , multiple admissions for alcohol withdrawal reports 3 day history of non-bloody emesis *Admitted to Med Surg *Given banana bag, multivitamin in ED *Alcohol withdrawal protocol with PRN IV Ativan *Zofran, Reglan prn for N/V *Patient with multiple relapses in the past, attempted brainstorming with patient on how to change she expresses wish to try outpatient therapy again. * Poor insight into situation, will revisit topic with her tomorrow when she is more alert * Patient given haldol overnight despite not getting recommended withdrawal score ativan. Hopefully we can contain her agitation today with just ativan and if necessary 1 to 1. Pancytopenia: * Patient has pancytopenia secondary to liver cirrhosis. Liver cirrhosis become so bad that it has caused her to become profoundly cytopenic * currently no signs or symptoms of active bleeding secondary to his thrombocytopenia. * Patient placed on neutropenic precautions secondary to ANC of 0.8 * Thrombocytopenia Plt ct 41->33->26->21-> pending -Type and cross -FFP/PLT/PRBC on hold -If patient starts to bleed FFP & PLT -If H/H trending down or hgb below 7.5 give prbc -If fobt + or si/sx of bleed give plt/ffp UTI *E. coli pansensitive *Continue ceftriaxone for 7 days final dose on 09/02 Vomiting: *Reglan and prn odnansetron * No vomiting reported today Liver cirrhosis, alcoholic: *Secondary to alcohol abuse and hepatitis C *LFTs are similar to previous presentations, *INR 1.7 AST 165 ALT 60 * Checking Ammonia level this morning. * patient needs to find a method that will work to stop drinking alcohol, will continue to strive to drive message home FENa:Regular Diet Code Status:Full Code DVT PPX:contraindicated given elevated INR Dispo: Med/Surg Supervising Physician Co-Signing Physician Notes I personally examined the patient and verified all cooper points of history and exam, discussed case, and agree with decision making with Dr Jacob. No meaningful HPI or review of systems noted. Events of last night noted. Vitals noted, in general she is resting comfortably with no tremor, sleeping soundly. Breathing unlabored no accessory muscle use good effort. Alcohol withdrawalseems to be improving. The question of her hallucinations last night is somewhat more vague. Her alcohol withdrawal pattern seem to be improving, although certainly could still go into true alcohol delirium. Given her track record of alcohol abuse this would be highly probable, at the same time it is possible that she could have a degree of psychosis, substance abuse related or otherwise, that is separate from the alcohol withdrawal. Ammonia level is only nominally elevated at 38, continue supportive care vigilance serial exams. As of yesterday her stated discharge plan was to go home and do outpatient rehab, but to have her boyfriend remove all alcohol from the house and keep her wallet so she was not able to buy any. otherwise as above Subjective Mary Barros is somnolent this morning. She became agitated last night and was trying to get out of bed unsteadily. Night team ordered haldol to sedate her which she is still very sedated on. Review of Systems Review of Systems: Unobtainable due to reduced consciousness Physical Exam Constitutional: + intoxicated appearing and + altered mental status; no acute distress Eyes: PERRL, conjunctivae normal, anicteric sclerae Respiratory: normal respiratory effort, lungs clear to auscultation Cardiovascular: Rate/Rhythm: regular rate and regular rhythm Vessels: normal peripheral pulses Gastrointestinal (Abdomen): Inspection/Auscultation: abdomen normal to inspection Percussion/Palpation: + abdomen tender (globally tender worst epigastric) and abdomen soft; no guarding, no hepatosplenomegaly and no abdominal mass Skin: no rashes and no jaundice Results & Data Vital Signs (Past 12 Hours) Vital Signs Temp Pulse Pulse Resp BP Pulse Ox 08/31/18 07:25 37.2 C 84 18 121/83 93 08/31/18 01:44 37.1 C 114 H 18 138/73 96 08/30/18 23:29 95 H 109/78 08/30/18 23:00 36.8 C 103 H 20 125/85 92 Resident Activity Tracking Resident Involvement: Resident Care Provided Care Provided: Adult Hospital Medicine (1) Alcohol withdrawal Complication of substance-induced condition: with unspecified complication Qualified Code(s): F10.239 - Alcohol dependence with withdrawal, unspecified
[2018-08-31 10:10] LABS: Hematocrit (blood only) 29.4 % (37-47); Hemoglobin 9.8 g/dL (12.0-16.0); Mean Corpuscular Hgb Conc 33.3 g/dL (32-36); Mean Corpuscular Volume 99.3 fL (80-100); Platelet Count 29 K/uL (130-400); RDW Coefficient of Variation 15.9 % (11.5-14.5); RDW Standard Deviation 57.4 fL (36.4-46.3); Red Blood Count 2.96 M/uL (4.2-5.4); White Blood Count 2.14 K/uL (4.8-10.8)
[2018-08-31 10:25] LABS: Basophils # (auto) 0.02 K/uL (0-0.2); Basophils % (auto) 0.9 %; Eosinophils # (auto) 0.08 K/uL (0-0.5); Eosinophils % (auto) 3.7 %; Lymphocytes # (auto) 0.79 K/uL (1.2-3.4); Lymphocytes % (auto) 36.9 %; Neutrophils # (auto) 0.95 K/uL (1.4-6.5); Neutrophils % (auto) 44.5 %; Target Cells 1+
[2018-08-31] MEDS: LORazepam 3 MG/6 ML VIAL IV PRN (10:36)
[2018-08-31] MEDS: cefTRIAXone SODIUM 2,000 MG in DEXTROSE 5% 50 ML IV SCH (13:16)
[2018-08-31] MEDS ORDERED: METOCLOPRAMIDE HCL INJ 5 MG/ML 2 ML VIAL IV PRN (22:34)
[2018-08-31 23:32] LABS: 7-Aminoclonaz, Confirm NEGATIVE NG/ML (CUTOFF=25); Hydro-Alp Ur, GC/MS NEGATIVE NG/ML (CUTOFF=25); Hydroxyethylflurazepam, Conf NEGATIVE NG/ML (CUTOFF=50); Hydroxytriazolam NEGATIVE NG/ML (CUTOFF=50); Lorazepam, Ur GC/MS 69 NG/ML (CUTOFF=50); Nordiazepam, Confirm 81 NG/ML (CUTOFF=50); Oxazepam Ur, GC/MS 158 NG/ML (CUTOFF=50); Temazepam, Confirm 907 NG/ML (CUTOFF=50)
[2018-09-01] MEDS: LORazepam 1 MG/2 ML VIAL IV PRN ×3 (00:34→09:49)
[2018-09-01] MEDS: D5W AND 1/2NSS + 20MEQ KCL 20 MEQ/1,000 ML BAG IV SCH ×2 (06:08→18:12)
[2018-09-01] MEDS: FOLIC ACID 1 MG in SYRINGE 9.8 ML IV SCH (08:04)
[2018-09-01] MEDS: THIAMINE HCL 100 MG in SYRINGE 9 ML IV SCH (08:04)
[2018-09-01] MEDS: PANTOprazole 40 MG TAB PO SCH (08:04)
[2018-09-01] MEDS: GABAPENTIN 300 MG CAP PO SCH ×3 (08:04→21:39)
[2018-09-01 11:23] LABS: Hematocrit (blood only) 28.7 % (37-47); Hemoglobin 9.6 g/dL (12.0-16.0); Mean Corpuscular Hgb Conc 33.4 g/dL (32-36); Mean Corpuscular Volume 99.3 fL (80-100); Mean Platelet Volume 11.6 fL (7.4-10.4); Platelet Count 35 K/uL (130-400); RDW Coefficient of Variation 16.2 % (11.5-14.5); RDW Standard Deviation 58.1 fL (36.4-46.3); Red Blood Count 2.89 M/uL (4.2-5.4); White Blood Count 2.14 K/uL (4.8-10.8)
[2018-09-01 11:48] LABS: Basophils # (auto) 0.03 K/uL (0-0.2); Basophils % (auto) 1.4 %; Eosinophils # (auto) 0.13 K/uL (0-0.5); Eosinophils % (auto) 6.1 %; Lymphocytes # (auto) 0.81 K/uL (1.2-3.4); Lymphocytes % (auto) 37.9 %; Monocytes # (auto) 0.39 K/uL (0.11-0.59); Monocytes % (auto) 18.2 %; Neutrophils # (auto) 0.78 K/uL (1.4-6.5); Neutrophils % (auto) 36.4 %
[2018-09-01 11:49] LABS: Giant Platelets 1+; Smudge Cells Present
[2018-09-01] MEDS: cefTRIAXone SODIUM 2,000 MG in DEXTROSE 5% 50 ML IV SCH (12:01)
--- NOTE | 2018-09-01 13:10 | Family Medicine Progress Note ---
Date of Service September 01, 2018 Assessment & Plan (1) Alcohol withdrawal: EtOH Withdrawal 47 yo F with history of alcohol abuse , multiple admissions for alcohol withdrawal reports 3 day history of non-bloody emesis Alcohol withdrawal *Patient appears to be improving from her withdrawal standpoint *Continue AWSS protocol *used upto 6mgs of IV lorazepam * Poor insight into situation, Had long discussion with her today and she does not seem to have a solid plan for how to avoid ending up back in this same situation. She is adamant she wants to return home with outpatient therapy. Pancytopenia: * Patient has pancytopenia secondary to liver cirrhosis. Liver cirrhosis become so bad that it has caused her to become profoundly cytopenic * currently no signs or symptoms of active bleeding secondary to her thrombocytopenia. * ANC of .78 UTI *E. coli pansensitive *Continue ceftriaxone for 7 days final dose on 09/02 Vomiting: *Reglan and prn ondansetron * No vomiting reported today Liver cirrhosis, alcoholic: *Secondary to alcohol abuse and hepatitis C *LFTs are similar to previous presentations, *INR 1.7 AST 165 ALT 60 * Mildly elevated ammonia * patient needs to find a method that will work to stop drinking alcohol FENa:Regular Diet Code Status:Full Code DVT PPX:contraindicated given elevated INR Dispo: Med/Surg Supervising Physician Co-Signing Physician Notes Resident Physician Supervision Note: I independently interviewed and examined the patient and verified the cooper history and physical, reviewed labs and image studies, discussed the case with the resident Dr. Jacob and agree with the findings and care plan. Subjective Mary Barros is far more alert and feeling much better today. She has been through this numerous times she tells me and knows she's on the better side of things. She is adamant that she wants to do outpatient treatment and not go to an inpatient facility. She also tells me she doesn't think she will drink again. Review of Systems Constitutional: + fatigue; no fever and no chills Respiratory: no cough, no chest congestion and no dyspnea Cardiovascular: no chest pain, no dyspnea and no calf pain Gastrointestinal: no abdominal pain, no nausea and no vomiting Psychiatric: no confusion, no hallucinations and no problem reported Physical Exam Constitutional: + ill appearing, + disheveled and cooperative; no acute distress Eyes: PERRL, conjunctivae normal, anicteric sclerae Respiratory: normal respiratory effort, lungs clear to auscultation Cardiovascular: Rate/Rhythm: regular rate and regular rhythm Vessels: normal peripheral pulses Gastrointestinal (Abdomen): Inspection/Auscultation: abdomen normal to inspection Percussion/Palpation: abdomen soft; abdomen nontender, no guarding, no hepatosplenomegaly and no abdominal mass Skin: no rashes and no jaundice Results & Data Vital Signs (Past 12 Hours) Vital Signs Temp Pulse Pulse Resp BP Pulse Ox 09/01/18 11:08 36.7 C 88 16 101/67 92 09/01/18 07:55 36.9 C 92 H 16 119/74 96 09/01/18 06:38 83 09/01/18 05:04 37.0 C 85 16 120/84 94 Resident Activity Tracking Resident Involvement: Resident Care Provided Care Provided: Adult Hospital Medicine (1) Alcohol withdrawal Complication of substance-induced condition: with unspecified complication Qualified Code(s): F10.239 - Alcohol dependence with withdrawal, unspecified
[2018-09-01] MEDS: LORazepam 3 MG/6 ML VIAL IV PRN (23:47)
[2018-09-02] MEDS: D5W AND 1/2NSS + 20MEQ KCL 20 MEQ/1,000 ML BAG IV SCH ×2 (01:28→11:23)
[2018-09-02] MEDS: LORazepam 1 MG/2 ML VIAL IV PRN ×3 (01:29→12:55)
[2018-09-02 07:05] LABS: BUN Creatinine Ratio 8.6 (10-20); Calcium 7.8 mg/dl (8.5-10.1); Est GFR (African American) 126.9; Est GFR (Non-African American) 109.5; Potassium 3.8 mmol/L (3.5-5.1)
[2018-09-02 07:45] LABS: Hematocrit (blood only) 27.7 % (37-47); Hemoglobin 9.4 g/dL (12.0-16.0); Mean Corpuscular Hgb Conc 33.9 g/dL (32-36); Mean Corpuscular Volume 98.6 fL (80-100); RDW Coefficient of Variation 16.4 % (11.5-14.5); RDW Standard Deviation 58.5 fL (36.4-46.3); Red Blood Count 2.81 M/uL (4.2-5.4); White Blood Count 2.17 K/uL (4.8-10.8)
[2018-09-02 07:47] LABS: Platelet Count 47 K/uL (130-400)
[2018-09-02 07:49] LABS: Basophils # (auto) 0.01 K/uL (0-0.2); Basophils % (auto) 0.5 %; Echinocytes 1+; Eosinophils % (auto) 4.6 %; Lymphocytes % (auto) 41.5 %; Monocytes # (auto) 0.44 K/uL (0.11-0.59); Monocytes % (auto) 20.3 %; Neutrophils # (auto) 0.72 K/uL (1.4-6.5); Neutrophils % (auto) 33.1 %; Platelet Estimate Decreased (Normal); Target Cells 1+
[2018-09-02] MEDS: GABAPENTIN 300 MG CAP PO SCH ×2 (07:56→12:49)
[2018-09-02] MEDS: FOLIC ACID 1 MG in SYRINGE 9.8 ML IV SCH (07:56)
[2018-09-02] MEDS: THIAMINE HCL 100 MG in SYRINGE 9 ML IV SCH (07:57)
[2018-09-02] MEDS: PANTOprazole 40 MG TAB PO SCH (09:18)
[2018-09-02 19:15] VITALS: BP 104/71; PULSE 82; TEMP 98.8; O2SAT 96
--- NOTE | 2018-09-02 20:58 | Discharge Summary ---
Date of Service September 02, 2018 Admission HPI Per Admitting Provider 47 yo F reports 3 day history of non-bloody emesis. Patient was unable to take home zofran because she ran out. She currently drinks a case a day of beer. She also report palpitations, tremor, sweating, chills, abdominal discomfort, sob. She also reports constipation. She has been drinking since age 5. She is not interested in inpatient alcoholic rehab at this time . Patient arrived in ED afebrile, tachycardic, BP stable, pancytopenic on arrival which is her baseline, K 3.4Cr unremarkable, AST 214, ALT 72, Alk phos 202, INR 1.7, Alcohol level of 285.5, CT head unremarkable Patient was discharged for similar presentation 07/03/18. Inpatient rehab was recommended but patient declined and instead sought home health Admission Exam Per Admitting Provider GENERAL APPEARANCE: generalized tremor, alert and cooperative HEAD: normocephalic. EYES: PERRL, EOMI, vision is grossly intact. EARS: hearing grossly intact. NECK: Neck supple, non-tender without lymphadenopathy CARDIAC: Normal S1 and S2. No S3, S4 or murmurs. tachycardic LUNGS: Clear to auscultation and percussion without rales, rhonchi, wheezing or diminished breath sounds. ABDOMEN: Positive bowel sounds. Soft, nondistended, nontender. No guarding or rebound. No masses. LOWER EXTREMITY: no edema NEUROLOGICAL: CN II-XII intact grossly . moves extremities SKIN: Skin normal color Principal Diagnosis Alcohol Withdrawal Discharge Exam Constitutional + ill appearing, + disheveled and cooperative; no acute distress Eyes PERRL, conjunctivae normal, anicteric sclerae Respiratory normal respiratory effort, lungs clear to auscultation Cardiovascular Rate/Rhythm: regular rate and regular rhythm Vessels: normal peripheral pulses Gastrointestinal (Abdomen) Inspection/Auscultation: abdomen normal to inspection Percussion/Palpation: abdomen soft; abdomen nontender, no guarding, no hepatosplenomegaly and no abdominal mass Skin no rashes and no jaundice Discharge Data Allergies Allergy/AdvReac Type Severity Reaction Status Date / Time acetaminophen [From Tylenol] AdvReac Intermediate HX Verified 08/27/18 21:36 CIRRHOSIS NSAIDS (Non-Steroidal AdvReac Intermediate HX Verified 06/18/18 00:17 Anti-Inflamma CIRRHOSIS phenytoin AdvReac Intermediate LOSS OF Verified 08/27/18 21:36 EQUILIBRIUM Consultations 08/27/18 23:41 ED Decision to Admit Stat 08/28/18 02:40 Consult Case Management - Discharge Planning Routine Ordered Studies 08/27/18 21:36 CT head/brain wo con Stat Hospital Course (1) Alcohol withdrawal: 47 yo F with history of alcohol abuse , multiple admissions for alcohol withdrawal reports 3 day history of non-bloody emesis and withdrawal from alcohol that she says she wants to quit. EtOH Withdrawal Patient underwent alcohol withdrawal per our alcohol withdrawal protocol with ativan. Her symptoms started to improve on day 3 of admission and she no longer required ativan by the afternoon of discharge. She has repeatedly shown that she has Poor insight into situation, multiple long discussions make it clear that she does not have a plan for how to avoid ending up back in this same situation. She is adamant she wants to return home with outpatient therapy and attending meetings. She will need to follow up with her PCP and Psychiatry which have already been set up through our nurse navigator. Pancytopenia: Patient has pancytopenia presumably secondary to her alcoholism and liver cirrhosis causing bone marrow suppression, Decreased Thrombopoetin production and increased splenic sequestration. ANC of 0.72 and platelets of 47 on discharge. Will need outpatient follow up on these labs as she maintains her sobriety hopefully these cell lines can recover. UTI Patient presented with a pansensitive E. Coli UTI that was treated adequately with seven days of ceftriaxone. No need for further outpatient therapy unless symptoms return. Vomiting: Likely from gastritis secondary to alcohol use. Patient initially presented with vomiting and nausea, completely resolved by discharge. Liver cirrhosis, alcoholic and Hep C: Secondary to alcohol abuse and hepatitis C, LFTs are similar to previous presentations, INR 1.7 AST 165 ALT 60. Patient needs to find a method that will work to stop drinking alcohol or it will end her life in the not too distant future. We will keep trying to get through to her each time she is admitted here. Total Time Total Time Spent Total Time Spent (In Minutes): 30 Total Time Includes: Examination of the Patient and Discharge Planning Discharge Plan Discharge Items Patient Disposition: Home - Self-Care Reason For Visit: ALCOHOL WITHDRAWAL Discharge Diagnosis: Alcohol addiction, Liver disease, pancytopenia from bone marrow suppression Condition: Fair Discharge Goals: Improve disease control Activity: Per 'Additional Instructions' section Non-emergency contact: Primary Care Provider Call non-emergency contact if: you have any medication questions Follow-up/Referrals: Marjorie Del CastilloScar Arzate [Primary Care Provider] - 09/09/18 12:15 pm (Please, follow up at [facility] with Marjorie Del Castillo SYED on SaturdaySeptember 09 at 12:15 pm. If you can't keep this appointment, call to cancel or reschedule. The office phone number is [phone]. When you see Marjorie, she will arrange for you to see the psychiatrist in her office, Dr. Lester.) Diet: Regular Addtl Provider Instructions: Mary Barros, As we have discussed in person several times, this is the time you need to make a change. You have been unsuccessful in the past, but that does not mean you have to be unsuccessful this time. When we talked you made it clear that your son was the priority in your life. The most important way you can be there for your son is by taking care of yourself and staying clean on discharge. If you have bad influences in your life, leave. If you feel the need to buy a drink pick pulling machine operator your phone and call him or anyone else that cares about you. If you do not make a change soon, the damage being done to your body will be irreversible and you may not be around to play any part in your son's life. I don't write this to scare you but rather because I want you to be there, I want you to thrive and it's going to take bold action on your part in order for that to happen, but I do believe in you and I do think you're capable of it. Please follow up with your outpatient rehab, please attend your meetings, please follow up with your primary care doctor and client technical specialist we have referred you to. If you have any questions or concerns please contact your primary care doctor's office. Your alcohol use has caused your body to make fewer cells than it typically is capable of and the fewer white cells are leaving you open to infection and the fewer platelets can leave you at risk of bleeding. It will be vital moving forward to follow up on these abnormal blood tests which may correct over time off of alcohol. It is a pleasure to have the honor of trying to help you in this becker and getting to know you better and I wish you the absolute best of luck moving forward. You have what it takes, now go do it. Fab Jacob MD Prescriptions: Continued gabapentin 400 mg Capsule 400 mg PO QID RF: 0 pantoprazole 40 mg Tablet,Delayed Release (Dr/Ec) 40 mg PO DAILY RF: 0 diazepam 5 mg Tablet 5 mg PO DIRECTED RF: 0 Unobtainable RF: 0 Stand-Alone Forms: [facility] Discharge Orders: Discharge Order (Routine); Ordered 09/02/18 Ordered By: Fab Jacob Admission Data Admit Date/Time: 08/28/18 01:49 Attending Provider: Meka Garcia Admit Provider: Zack Alejandra Primary Care Provider: Marjorie Del Castillo Other Providers: Zack Alejandra ; Alex Hayden Service: Medical Other Interventions: Discharge Summary Assessment (RN) Last Done: 09/02/18 17:01 DC Date/Time DO NOT enter until pt leaves facility: 09/02/18 20:15 Supervising Physician Co-Signing Physician Notes Resident Physician Supervision Note: I independently interviewed and examined the patient and verified the cooper history and physical, reviewed labs and image studies, discussed the case with the resident Dr. Srinivasan and agree with the findings and care plan. Time spent in discharge 35 min Resident Activity Tracking Resident Involvement: Resident Care Provided Care Provided: Adult Hospital Medicine
== END 2018-09-02 20:15 | disposition home or self-care (01) | DRG 897 ==
LOC: ED 19:51 → 4E 08-28 01:49 → SUATTDRO 08-28 01:49 → 4E 08-28 02:35 → 2N 08-31 01:57

== ENCOUNTER 2018-10-04 18:24 | Inpatient (IN) ==
[2018-10-04] MEDS ORDERED: LORazepam 2 MG/4 ML VIAL ONE (18:31)
[2018-10-04] MEDS ORDERED: SODIUM CHLORIDE 0.9% 1000ML 1,000 ML IV ONE (18:33)
[2018-10-04 18:39] LABS: Hematocrit (blood only) 24.4 % (37-47); Hemoglobin 8.5 g/dL (12.0-16.0); Mean Corpuscular Hgb Conc 34.8 g/dL (32-36); Mean Corpuscular Volume 96.8 fL (80-100); RDW Coefficient of Variation 18.2 % (11.5-14.5); Red Blood Count 2.52 M/uL (4.2-5.4)
[2018-10-04] MEDS ORDERED: MULTI-VITAMIN INFUSION 10 ML, THIAMINE HCL 100 MG, FOLIC ACID 1 MG in SODIUM CHLORIDE 0... IV SCH (18:45)
[2018-10-04 18:57] LABS: Alanine Aminotransferase 77 U/L (12-78); Albumin Level 2.2 gm/dl (3.4-5.0); Aspartate Aminotransferase 238 U/L (15-37); BUN Creatinine Ratio 5.8 (10-20); Blood Urea Nitrogen 6 mg/dl (7-18); Carbon Dioxide 21 mmol/L (21-32); Chloride 103 mmol/L (98-107); Est GFR (African American) 68.5; Est GFR (Non-African American) 59.1; Glucose 145 mg/dl (70-99); Magnesium 1.7 mg/dl (1.8-2.4); Potassium 3.2 mmol/L (3.5-5.1); Sodium 137 mmol/L (136-145)
[2018-10-04 19:02] LABS: Albumin Globulin Ratio 0.4 (0.9-2); Alkaline Phosphatase 199 U/L (45-117); Bilirubin,Total 4.1 mg/dl (0.2-1); Globulin 5.2 gm/dl (2.5-4.0); Pregnancy Test, Serum Negative (Negative); Total Protein 7.4 gm/dl (6.4-8.2); Troponin I < 0.015 ng/ml (0-0.045)
[2018-10-04 19:15] LABS: Mean Platelet Volume 10.8 fL (7.4-10.4); Platelet Count 41 K/uL (130-400)
[2018-10-04 19:16] LABS: Basophils # (auto) 0.02 K/uL (0-0.2); Basophils % (auto) 0.5 %; Eosinophils # (auto) 0.01 K/uL (0-0.5); Eosinophils % (auto) 0.2 %; Lymphocytes # (auto) 1.37 K/uL (1.2-3.4); Lymphocytes % (auto) 32.6 %; Monocytes # (auto) 0.31 K/uL (0.11-0.59); Monocytes % (auto) 7.4 %; Neutrophils # (auto) 2.49 K/uL (1.4-6.5); Neutrophils % (auto) 59.3 %; Platelet Estimate Decreased (Normal); Target Cells 1+
--- NOTE | 2018-10-04 19:18 | XRay Report ---
XR chest 1V portable CLINICAL HISTORY: 48 years-old Female presenting with seizure. TECHNIQUE: Portable upright AP view of the chest was obtained. COMPARISON: 06/28/2018. FINDINGS: Cardiomediastinal silhouette normal. No focal opacity. No large effusion or pneumothorax. Old nonunit ed right clavicle fracture. Upper abdomen normal. IMPRESSION: 1. No acute cardiopulmonary disease. Electronically signed by: Cheng Tim M.D. 10/04/2018 7:17 PM
[2018-10-04 21:37] LABS: INR 2.1 (0.9-1.1); Prothrombin Time 20.7 Seconds (9.0-12.0)
[2018-10-04] MEDS ORDERED: diazePAM 5 MG TABLET PO ONE (21:55)
[2018-10-04] MEDS ORDERED: ATIVAN IV ALCOHOL WITHDRAWL IV SCH (21:55)
[2018-10-04] MEDS ORDERED: GABAPENTIN 1200MG ALCOHOL WITHDRAWAL LOAD PO STA (21:55)
[2018-10-04] MEDS ORDERED: LORazepam 1 MG/2 ML VIAL IV PRN (21:55)
[2018-10-04] MEDS ORDERED: ACETAMINOPHEN 325 MG TAB PO PRN (21:55)
[2018-10-04] MEDS ORDERED: ONDANSETRON INJ 2 MG/ML 2 ML VIAL IV PRN (21:55)
[2018-10-04] MEDS ORDERED: GABAPENTIN 600 MG TAB PO ONE (22:00)
[2018-10-04] MEDS: LORazepam 2 MG/4 ML VIAL IV PRN (22:28)
[2018-10-04] MEDS: MAGNESIUM SULFATE / D5W 1 GM/100 ML BAG IV SCH (23:19)
[2018-10-04] MEDS: THIAMINE HCL 100 MG in SYRINGE 9 ML IV SCH (23:19)
--- NOTE | 2018-10-04 23:37 | History & Physical Report ---
Date of Service October 04, 2018 Assessment & Plan (1) Alcohol withdrawal: Patient with multiple admissions for the same. She states she has been trying to cut back. Discussed with her that continued EtOH will lead to . Presently resting, arousable, tremulous. Received 2mg Ativan IV in ER. -Valium 20mg now, may repeat dose twice q 2 hours as needed for CIWA > 10 -IV Ativan PRN -Gabapentin per protocol -IV Thiamine Daily -Continue PO Folic Acid -EtOH cessation counseling recommended -Seizure precautions -Check UTox Present on Admission?: Yes (2) Nausea & vomiting: Patient with nausea, vomiting brown liquid. Presently HD stable, no nausea or vomiting. History of varices and gastritis -CBC q 8 hours, transfuse for active bleed, Hg < 7 or symptomatic anemia -Continue Ranitidine -Protonix 40mg po daily Present on Admission?: Yes (3) Seizure: ?secondary to EtOH withdrawal. -Continue Topamax -Seizure precautions Present on Admission?: Yes (4) Pancytopenia: Most likely secondary to EtOH effects, hepatotoxicity. -Continue to monitor, daily CBC Present on Admission?: Yes (5) Liver cirrhosis, alcoholic: Secondary to EtOH -Check INR -Check RUQUS/Abdominal US. Patient with tender abdomen -Ceftriaxone 1gm IV daily for possible SBP -Consider GI consult (6) Alcoholic gastritis: Protonix 40mg po daily Continue Ranitidine Present on Admission?: Yes (7) Hypocalcemia: Calcium chloride x 1 gm Repeat ICal in AM and correct if needed Present on Admission?: Yes (8) Hypomagnesemia: Repletion wtih IV Magnesium (9) Hypokalemia: Repletion with PO K (10) Schizoaffective disorder: Noted F/E/N - banana bag given, electrolyte repletion as above, NPO for now Ppx - low risk for DVT Code - Full Dispo - Admit to PCU History of Present Illness Chief Complaint: EtOH withdrawal Primary Care Provider: Marjorie Del Castillo Mary Barros is a 48yo C female with longstanding history of EtOH abuse resulting in multiple medical complications - pancytopenia, cirrhosis, gastritis, electrolyte abnormality, pancreatitis, confabulation, withdrawal in the past with DTs and seizures. Multiple EtOH related hospitalizations. She presents today after having 3 seizures at home yesterday. This AM she reports developing nausea with vomiting, reports vomit being dark brown in color, no hematemesis or coffee ground material. Also with abdominal pain. She reports subjective fevers/chills/sweats, loss of appetite, dark urine and headache. Denies other drug use. Patient drinks one case of high EtOH beer daily (8%). Last drink was this AM at 02:00. ER Course: Ativan 2mg IV, Banana bag Allergies Allergy/AdvReac Type Severity Reaction Status Date / Time acetaminophen [From Tylenol] AdvReac Intermediate HX Verified 10/04/18 19:22 CIRRHOSIS NSAIDS (Non-Steroidal AdvReac Intermediate HX Verified 10/04/18 19:22 Anti-Inflamma CIRRHOSIS phenytoin AdvReac Intermediate LOSS OF Verified 10/04/18 19:22 EQUILIBRIUM Home Medications Home Medications Medication Instructions Recorded Confirmed Type pantoprazole [Protonix] 40 mg PO DAILY 28 Days #28 tab 09/16/18 10/04/18 Rx Potassium Tab 1 tab PO DAILY 10/04/18 10/04/18 History folic acid 1 mg PO DAILY 10/04/18 10/04/18 History magnesium oxide 400 mg PO DAILY 10/04/18 10/04/18 History penicillin V potassium 500 mg PO QID 10/04/18 10/04/18 History ranitidine HCl 150 mg PO HS 10/04/18 10/04/18 History topiramate [Topamax] 100 mg PO BID 10/04/18 10/04/18 History Past Med/Surg History Medical History Hypertension (Acute) Hypokalemia Seizures Pancreatitis (Chronic) Schizoaffective disorder (Chronic) Arthritis Depression Liver disease Thyroid disease Gastritis Liver cancer (Chronic) Alcoholism Acute recurrent pancreatitis (Acute Unknown) Viral hepatitis C (Chronic Unknown) Chronic pancreatitis (Chronic Unknown) Cirrhosis, alcoholic (Chronic) Chronic renal failure, stage 3 (moderate) (Chronic) Polysubstance abuse (Acute) Depression with suicidal ideation (Acute) TIA (transient ischemic attack) (Acute) Pancytopenia (Acute) Cholecystectomy planned Cholecystectomy planned Hyponatremia Surgical History History of appendectomy Family History Mother Multiple sclerosis Father , age 52 Acute coronary occlusion without mycocardial infarction Social History Preferred Language: [place] Islander Communication Ability: Effective Visual Impairment: No Limitations [employer] Consultant Required: No Beliefs That Will Affect Care: None marital status: Current Living Situation: Significant Other current occupational status: unemployed and disabled Other Information That Helps Us Care for You: No Feels Safe at Home: Yes Safety Concerns: Feels Safe At This Time Smoking Status: Current every day smoker Tobacco Type: cigarettes Cigarettes Per Day: 20 Do You Dip or Chew Tobacco: No Second Hand Exposure: No Tobacco Cessation Education Requested by Patient: No Hx Alcohol Use: Yes Alcohol type: beer Hx Substance Use: Yes (beer and cigarettes) substance use type: does not use Last Used Substance: Just Prior to Arrival Review of Systems Review of Systems: All systems reviewed & are unremarkable except as noted in HPI & below Physical Exam Physical Exam: General: patient resting, easily arousable, tremulous, c hronically ill in appearance Skin: warm, dry, intact, no rashes or lesions HEENT: NC/AT, PERRL, EOMI, anicteric sclera, conjunctiva without injection, external ear normal to inspection and nontender, nares patent, moist mucus membranes, poor dentition, no oropharyngeal lesions, neck supple, trachea midline, no LAD, no thyromegaly, no JVD Heart: +S1/S2, regular, tachycardic, no m/r/g Lungs: equal air entry bilaterally, no rales/rhonchi/wheezes Abd: +BS, soft, diffusely tender, no masses/organomegaly/ascites Ext: warm, 2+ pulses in UE/LE bilaterally, no clubbing/cyanosis or edema Neuro: nonfocal, patient AA&O x 4, speech intact, no facial droop, moving all extremities on command with equal strength 5/5 Results & Data Vital Signs (Past 12 Hours) Vital Signs Temp Pulse Pulse Resp BP BP Pulse Ox 10/04/18 21:55 36.9 C 128 H 26 H 119/82 99 10/04/18 21:31 123 H 15 95 10/04/18 21:30 126 H 18 100/69 97 10/04/18 21:27 120 H 106/67 97 10/04/18 21:16 121 H 19 10/04/18 21:15 120 H 19 106/67 10/04/18 21:06 123 H 20 93/68 L 10/04/18 21:04 127 H 17 10/04/18 21:02 125 H 19 241/225 H 06/08/19 21:00 127 H 21 10/04/18 20:46 110 H 17 98 10/04/18 20:45 110 H 17 99/76 L 98 10/04/18 20:31 108 H 19 97 10/04/18 20:30 108 H 17 112/83 98 10/04/18 20:21 120 H 115 H 18 115/81 115/81 99 10/04/18 20:19 117 H 17 99 10/04/18 20:17 115 H 16 100 10/04/18 20:15 106 H 19 99 10/04/18 20:02 110 H 18 97 10/04/18 20:01 112 H 18 101/73 96 10/04/18 20:00 112 H 19 96 10/04/18 19:45 114 H 16 98 10/04/18 19:30 121 H 16 99 10/04/18 19:16 124 H 17 94 10/04/18 19:15 123 H 16 110/85 99 10/04/18 19:12 119 H 17 106/75 99 10/04/18 19:00 127 H 10/04/18 18:45 129 H 20 96 10/04/18 18:37 131 H 20 96 10/04/18 18:35 36.9 C 141 H 14 101/87 95 10/04/18 18:30 130 H 19 107/78 94 Pulse Ox 10/04/18 21:55 99 10/04/18 21:31 10/04/18 21:30 10/04/18 21:27 10/04/18 21:16 10/04/18 21:15 10/04/18 21:06 10/04/18 21:04 10/04/18 21:02 10/04/18 21:00 10/04/18 20:46 10/04/18 20:45 10/04/18 20:31 10/04/18 20:30 10/04/18 20:21 10/04/18 20:19 10/04/18 20:17 10/04/18 20:15 10/04/18 20:02 10/04/18 20:01 10/04/18 20:00 10/04/18 19:45 10/04/18 19:30 10/04/18 19:16 10/04/18 19:15 10/04/18 19:12 10/04/18 19:00 10/04/18 18:45 10/04/18 18:37 10/04/18 18:35 10/04/18 18:30 Laboratory Results Lab Results 10/04/18 10/04/18 10/04/18 Range/Units 18:17 18:17 18:17 WBC 4.20 L (4.8-10.8) K/uL RBC 2.52 L (4.2-5.4) M/uL Hgb 8.5 L (12.0-16.0) g/dL Hct 24.4 L (37-47) % MCV 96.8 (80-100) fL MCH 33.7 (25-34) pg MCHC 34.8 (32-36) g/dL RDW Std Deviation 64.0 H (36.4-46.3) fL RDW Coeff of Michelle 18.2 H (11.5-14.5) % Plt Count 41 L (130-400) K/uL MPV 10.8 H (7.4-10.4) fL Immature Gran % (Auto) 0.0 % Neut % (Auto) 59.3 % Lymph % (Auto) 32.6 % Shackelford % (Auto) 7.4 % Eos % (Auto) 0.2 % Baso % (Auto) 0.5 % Immature Gran # (Auto) 0.00 (0.00-0.02) K/uL Neut # (Auto) 2.49 (1.4-6.5) K/uL Lymph # (Auto) 1.37 (1.2-3.4) K/uL [place]ackelford # (Auto) 0.31 (0.11-0.59) K/uL Eos # (Auto) 0.01 (0-0.5) K/uL Baso # (Auto) 0.02 (0-0.2) K/uL Platelet Estimate Decreased L (Normal) Target Cells 1+ PT (9.0-12.0) Seconds INR (0.9-1.1) Sodium 137 (136-145) mmol/L Potassium 3.2 L (3.5-5.1) mmol/L Chloride 103 (98-107) mmol/L Carbon Dioxide 21 (21-32) mmol/L Anion Gap 13.0 H (3-11) BUN 6 L (7-18) mg/dl Creatinine 1.09 (0.6-1.2) mg/dl Est Cr Clr Drug Dosing 69.0 ml/min Est GFR ( Amer) 68.5 Est GFR (Non-Af Amer) 59.1 BUN/Creatinine Ratio 5.8 L (10-20) Glucose 145 H (70-99) mg/dl Calcium 7.0 L (8.5-10.1) mg/dl Ionized Calcium (1.12-1.32) mmol/L Magnesium 1.7 L (1.8-2.4) mg/dl Total Bilirubin 4.1 H (0.2-1) mg/dl AST 238 H (15-37) U/L ALT 77 (12-78) U/L Alkaline Phosphatase 199 H (45-117) U/L Ammonia (11-32) umol/L Troponin I < 0.015 (0-0.045) ng/ml Total Protein 7.4 (6.4-8.2) gm/dl Albumin 2.2 L (3.4-5.0) gm/dl Globulin 5.2 H (2.5-4.0) gm/dl Albumin/Globulin Ratio 0.4 L (0.9-2) Vitamin B12 (211-911) pg/ml HCG, Qual Negative (Negative) Ethyl Alcohol mg/dL (0-3) mg/dl Blood Type Antibody Screen 10/04/18 10/04/18 10/04/18 Range/Units 18:17 19:01 19:01 WBC (4.8-10.8) K/uL RBC (4.2-5.4) M/uL Hgb (12.0-16.0) g/dL Hct (37-47) % MCV (80-100) fL MCH (25-34) pg MCHC (32-36) g/dL RDW Std Deviation (36.4-46.3) fL RDW Coeff of Michelle (11.5-14.5) % Plt Count (130-400) K/uL MPV (7.4-10.4) fL Immature Gran % (Auto) % Neut % (Auto) % Lymph % (Auto) % Shackelford % (Auto) % Eos % (Auto) % Baso % (Auto) % Immature Gran # (Auto) (0.00-0.02) K/uL Neut # (Auto) (1.4-6.5) K/uL Lymph # (Auto) (1.2-3.4) K/uL Shackelford # (Auto) (0.11-0.59) K/uL Eos # (Auto) (0-0.5) K/uL Baso # (Auto) (0-0.2) K/uL Platelet Estimate (Normal) Target Cells PT 20.7 H (9.0-12.0) Seconds INR 2.1 H (0.9-1.1) Sodium (136-145) mmol/L Potassium (3.5-5.1) mmol/L Chloride (98-107) mmol/L Carbon Dioxide (21-32) mmol/L Anion Gap (3-11) BUN (7-18) mg/dl Creatinine (0.6-1.2) mg/dl Est Cr Clr Drug Dosing ml/min Est GFR ( Amer) Est GFR (Non-Af Amer) BUN/Creatinine Ratio (10-20) Glucose (70-99) mg/dl Calcium (8.5-10.1) mg/dl Ionized Calcium (1.12-1.32) mmol/L Magnesium (1.8-2.4) mg/dl Total Bilirubin (0.2-1) mg/dl AST (15-37) U/L ALT (12-78) U/L Alkaline Phosphatase (45-117) U/L Ammonia 42.0 H (11-32) umol/L Troponin I (0-0.045) ng/ml Total Protein (6.4-8.2) gm/dl Albumin (3.4-5.0) gm/dl Globulin (2.5-4.0) gm/dl Albumin/Globulin Ratio (0.9-2) Vitamin B12 (211-911) pg/ml HCG, Qual (Negative) Ethyl Alcohol mg/dL 324.0 H (0-3) mg/dl Blood Type Antibody Screen 10/04/18 10/04/18 10/04/18 Range/Units 19:01 22:13 22:13 WBC (4.8-10.8) K/uL RBC (4.2-5.4) M/uL Hgb (12.0-16.0) g/dL Hct (37-47) % MCV (80-100) fL MCH (25-34) pg MCHC (32-36) g/dL RDW Std Deviation (36.4-46.3) fL RDW Coeff of Michelle (11.5-14.5) % Plt Count (130-400) K/uL MPV (7.4-10.4) fL Immature Gran % (Auto) % Neut % (Auto) % Lymph % (Auto) % [place]ackelford % (Auto) % Eos % (Auto) % Baso % (Auto) % Immature Gran # (Auto) (0.00-0.02) K/uL Neut # (Auto) (1.4-6.5) K/uL Lymph # (Auto) (1.2-3.4) K/uL [place]ord # (Auto) (0.11-0.59) K/uL Eos # (Auto) (0-0.5) K/uL Baso # (Auto) (0-0.2) K/uL Platelet Estimate (Normal) Target Cells PT (9.0-12.0) Seconds INR (0.9-1.1) Sodium (136-145) mmol/L Potassium (3.5-5.1) mmol/L Chloride (98-107) mmol/L Carbon Dioxide (21-32) mmol/L Anion Gap (3-11) BUN (7-18) mg/dl Creatinine (0.6-1.2) mg/dl Est Cr Clr Drug Dosing ml/min Est GFR ( Amer) Est GFR (Non-Af Amer) BUN/Creatinine Ratio (10-20) Glucose (70-99) mg/dl Calcium (8.5-10.1) mg/dl Ionized Calcium 0.90 L (1.12-1.32) mmol/L Magnesium (1.8-2.4) mg/dl Total Bilirubin (0.2-1) mg/dl AST (15-37) U/L ALT (12-78) U/L Alkaline Phosphatase (45-117) U/L Ammonia (11-32) umol/L Troponin I (0-0.045) ng/ml Total Protein (6.4-8.2) gm/dl Albumin (3.4-5.0) gm/dl Globulin (2.5-4.0) gm/dl Albumin/Globulin Ratio (0.9-2) Vitamin B12 1469 H (211-911) pg/ml HCG, Qual (Negative) Ethyl Alcohol mg/dL (0-3) mg/dl Blood Type A Positive Antibody Screen NEGATIVE Diagnostic Findings XR chest 1V portable CLINICAL HISTORY: 48 years-old Female presenting with seizure. TECHNIQUE: Portable upright AP view of the chest was obtained. COMPARISON: 06/28/2018. FINDINGS: Cardiomediastinal silhouette normal. No focal opacity. No large effusion or pneumothorax. Old nonunited right clavicle fracture. Upper abdomen normal. IMPRESSION: 1. No acute cardiopulmonary disease. Electronically signed by: Cheng Tim M.D. 10/04/2018 7:17 PM Dictated: 10/04/181915 Transcribed: 10/04/181915 ECG Additional Comments: ST at 120, no acute ischemic changes, unchanged from prior study 16 Sep 2018 Code Status & VTE Plan Code Status FULL (1) Alcohol withdrawal Complication of substance-induced condition: with unspecified complication Qualified Code(s): F10.239 - Alcohol dependence with withdrawal, unspecified (2) Alcoholic gastritis Chronicity: unspecified Gastritis bleeding: presence of bleeding unspecified Qualified Code(s): K29.20 - Alcoholic gastritis without bleeding (3) Nausea & vomiting Vomiting Intractability: non-intractable Vomiting type: unspecified Qualified Code(s): R11.2 - Nausea with vomiting, unspecified
[2018-10-04] MEDS ORDERED: CALCIUM CHLORIDE 10% 1,000 MG in SODIUM CHLORIDE 0.9% 50 ML IV ONE (23:45)
[2018-10-05] MEDS: MAGNESIUM SULFATE / D5W 1 GM/100 ML BAG IV SCH (00:14)
[2018-10-05] MEDS: cefTRIAXone SODIUM 2,000 MG in DEXTROSE 5% 50 ML IV SCH (00:14)
[2018-10-05] MEDS: diazePAM 5 MG TABLET PO PRN ×2 (01:26→14:39)
--- NOTE | 2018-10-05 01:37 | Emergency Department Note ---
Entered by Eugenio Rossi acting as a scribe for Valentino Balderrama MD History of Present Illness General Chief complaint: Seizure Time Seen by Provider: 10/04/18 18:25 History of Present Illness Onset (ago): day(s) (last night) Location: head Pain Consistency: + intermittent Quality: + other (abdomen "blew up") Associated symptoms: + nausea/vomiting and + weakness The patient is a 48 year old female who presents to the Emergency Room with complaints of multiple intermittent seizures starting last night. EMS states the patient had 3 seizures last night with the last one occurring at 2100. EMS notes the patient vomited dark blood this morning. The patient states she has not had any alcohol in the last day. She states she has tried to drink alcohol but has been vomiting it up. She notes she has been weak. She states her abdomen "blew up" in the last 3 days. She states she has liver disease, pancreatitis, cirrhosis, and had a bad bone marrow biopsy. The patient states she has a history of Hep-C. She notes she has been on penicillin. She states her PCP is Dr. Marjorie Puentes. She denies any chest pain. No trauma. No focal numbness or weakness. She does feel shaky. She drank last yesterday. Home Medications Home Medications Medication Instructions Recorded Confirmed Type pantoprazole [Protonix] 40 mg PO DAILY 28 Days #28 tab 09/16/18 10/04/18 Rx Potassium Tab 1 tab PO DAILY 10/04/18 10/04/18 History folic acid 1 mg PO DAILY 10/04/18 10/04/18 History magnesium oxide 400 mg PO DAILY 10/04/18 10/04/18 History penicillin V potassium 500 mg PO QID 10/04/18 10/04/18 History ranitidine HCl 150 mg PO HS 10/04/18 10/04/18 History topiramate [Topamax] 100 mg PO BID 10/04/18 10/04/18 History Allergies Allergy/AdvReac Type Severity Reaction Status Date / Time acetaminophen [From Tylenol] AdvReac Intermediate HX Verified 10/04/18 19:22 CIRRHOSIS NSAIDS (Non-Steroidal AdvReac Intermediate HX Verified 10/04/18 19:22 Anti-Inflamma CIRRHOSIS phenytoin AdvReac Intermediate LOSS OF Verified 10/04/18 19:22 EQUILIBRIUM Past Med/Surg History Medical History Hypertension (Acute) Hypokalemia Seizures Pancreatitis (Chronic) Schizoaffective disorder (Chronic) Arthritis Depression Liver disease Thyroid disease Gastritis Liver cancer (Chronic) Alcoholism Acute recurrent pancreatitis (Acute Unknown) Viral hepatitis C (Chronic Unknown) Chronic pancreatitis (Chronic Unknown) Cirrhosis, alcoholic (Chronic) Chronic renal failure, stage 3 (moderate) (Chronic) Polysubstance abuse (Acute) Depression with suicidal ideation (Acute) TIA (transient ischemic attack) (Acute) Pancytopenia (Acute) Cholecystectomy planned Cholecystectomy planned Hyponatremia Surgical History History of appendectomy Family History Mother Multiple sclerosis Father , age 52 Acute coronary occlusion without mycocardial infarction Social History Preferred Language: Albanian Communication Ability: Effective Visual Impairment: No Limitations 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 Beliefs That Will Affect Care: None marital status: Current Living Situation: Significant Other current occupational status: unemployed and disabled Other Information That Helps Us Care for You: No Feels Safe at Home: Yes Safety Concerns: Feels Safe At This Time Smoking Status: Current every day smoker Tobacco Type: cigarettes Cigarettes Per Day: 20 Do You Dip or Chew Tobacco: No Second Hand Exposure: No Tobacco Cessation Education Requested by Patient: No Hx Alcohol Use: Yes Alcohol type: beer Hx Substance Use: Yes (beer and cigarettes) substance use type: does not use Last Used Substance: Just Prior to Arrival Review of Systems See HPI for pertinent positives & negatives. and A total of 10 systems reviewed and were otherwise negative Physical Exam Vital Signs Vital Signs - 24 hr 10/04/18 18:30 10/04/18 18:35 10/04/18 18:37 Temperature 36.9 C Temperature Source Oral Sepsis Recent Fever Within 48 Hours No Sepsis New/Unexplained Change in Mental Status No Sepsis Action Taken by Nursing No Action Required Pulse Rate 130 H 141 H 131 H Pulse Rate [Apical] Pulse Rate from SpO2 Sensor 129 H 131 H Respiratory Rate 19 14 20 Blood Pressure 107/78 101/87 Blood Pressure [Left Arm] Blood Pressure Mean 87 91 Blood Pressure Mean [Left Arm] Pulse Oximetry 94 95 96 Oxygen Delivery Method Room Air 10/04/18 18:45 10/04/18 19:00 10/04/18 19:12 Temperature Temperature Source Sepsis Recent Fever Within 48 Hours Sepsis New/Unexplained Change in Mental Status Sepsis Action Taken by Nursing Pulse Rate 129 H 127 H 119 H Pulse Rate [Apical] Pulse Rate from SpO2 Sensor 129 H 118 H Respiratory Rate 20 17 Blood Pressure 106/75 Blood Pressure [Left Arm] Blood Pressure Mean 85 Blood Pressure Mean [Left Arm] Pulse Oximetry 96 99 Oxygen Delivery Method 10/04/18 19:15 10/04/18 19:16 10/04/18 19:30 Temperature Temperature Source Sepsis Recent Fever Within 48 Hours Sepsis New/Unexplained Change in Mental Status Sepsis Action Taken by Nursing Pulse Rate 123 H 124 H 121 H Pulse Rate [Apical] Pulse Rate from SpO2 Sensor 124 H 122 H 122 H Respiratory Rate 16 17 16 Blood Pressure 110/85 Blood Pressure [Left Arm] Blood Pressure Mean 93 Blood Pressure Mean [Left Arm] Pulse Oximetry 99 94 99 Oxygen Delivery Method 10/04/18 19:45 10/04/18 20:00 10/04/18 20:01 Temperature Temperature Source Sepsis Recent Fever Within 48 Hours Sepsis New/Unexplained Change in Mental Status Sepsis Action Taken by Nursing Pulse Rate 114 H 112 H 112 H Pulse Rate [Apical] Pulse Rate from SpO2 Sensor 114 H 113 H 112 H Respiratory Rate 16 19 18 Blood Pressure 101/73 Blood Pressure [Left Arm] Blood Pressure Mean 82 Blood Pressure Mean [Left Arm] Pulse Oximetry 98 96 96 Oxygen Delivery Method 10/04/18 20:02 10/04/18 20:15 10/04/18 20:17 Temperature Temperature Source Sepsis Recent Fever Within 48 Hours Sepsis New/Unexplained Change in Mental Status Sepsis Action Taken by Nursing Pulse Rate 110 H 106 H 115 H Pulse Rate [Apical] Pulse Rate from SpO2 Sensor 110 H 108 H 117 H Respiratory Rate 18 19 16 Blood Pressure Blood Pressure [Left Arm] Blood Pressure Mean Blood Pressure Mean [Left Arm] Pulse Oximetry 97 99 100 Oxygen Delivery Method 10/04/18 20:19 10/04/18 20:21 10/04/18 20:30 Temperature Temperature Source Sepsis Recent Fever Within 48 Hours Sepsis New/Unexplained Change in Mental Status Sepsis Action Taken by Nursing Pulse Rate 117 H 120 H 108 H Pulse Rate [Apical] 115 H Pulse Rate from SpO2 Sensor 117 H 120 H 108 H Respiratory Rate 17 18 17 Blood Pressure 115/81 112/83 Blood Pressure [Left Arm] 115/81 Blood Pressure Mean 42 92 92 Blood Pressure Mean [Left Arm] 92 Pulse Oximetry 99 99 98 Oxygen Delivery Method Room Air 10/04/18 20:31 10/04/18 20:45 10/04/18 20:46 Temperature Temperature Source Sepsis Recent Fever Within 48 Hours Sepsis New/Unexplained Change in Mental Status Sepsis Action Taken by Nursing Pulse Rate 108 H 110 H 110 H Pulse Rate [Apical] Pulse Rate from SpO2 Sensor 108 H 110 H 110 H Respiratory Rate 19 17 17 Blood Pressure 99/76 L Blood Pressure [Left Arm] Blood Pressure Mean 83 Blood Pressure Mean [Left Arm] Pulse Oximetry 97 98 98 Oxygen Delivery Method 10/04/18 21:00 10/04/18 21:02 10/04/18 21:04 Temperature Temperature Source Sepsis Recent Fever Within 48 Hours Sepsis New/Unexplained Change in Mental Status Sepsis Action Taken by Nursing Pulse Rate 127 H 125 H 127 H Pulse Rate [Apical] Pulse Rate from SpO2 Sensor Respiratory Rate 21 19 17 Blood Pressure 241/225 H Blood Pressure [Left Arm] Blood Pressure Mean 230 242 Blood Pressure Mean [Left Arm] Pulse Oximetry Oxygen Delivery Method 10/04/18 21:06 10/04/18 21:15 10/04/18 21:16 Temperature Temperature Source Sepsis Recent Fever Within 48 Hours Sepsis New/Unexplained Change in Mental Status Sepsis Action Taken by Nursing Pulse Rate 123 H 120 H 121 H Pulse Rate [Apical] Pulse Rate from SpO2 Sensor Respiratory Rate 20 19 19 Blood Pressure 93/68 L 106/67 Blood Pressure [Left Arm] Blood Pressure Mean 76 80 Blood Pressure Mean [Left Arm] Pulse Oximetry Oxygen Delivery Method 10/04/18 21:27 10/04/18 21:30 10/04/18 21:31 Temperature Temperature Source Sepsis Recent Fever Within 48 Hours Sepsis New/Unexplained Change in Mental Status Sepsis Action Taken by Nursing Pulse Rate 126 H 123 H Pulse Rate [Apical] 120 H Pulse Rate from SpO2 Sensor 125 H 124 H Respiratory Rate 18 15 Blood Pressure 100/69 Blood Pressure [Left Arm] 106/67 Blood Pressure Mean 79 Blood Pressure Mean [Left Arm] 80 Pulse Oximetry 97 97 95 Oxygen Delivery Method Room Air General: Chronically-ill appearing middle-aged female in no acute distress. Answers questions appropriately but some vaguely. Appears mildly shaky. HEENT: Normal cephalic atraumatic. Pupils are equal round and reactive to light. Extraocular movements are intact. Oropharynx is pink with moist mucous membranes. No swelling of the mouth lips or tongue. Neck: Supple with a midline trachea. No meningeal signs or stiffness, no JVD or bruits. No Stridor. Chest: Clear to auscultation bilaterally. No wheezes or rhonchi. No increased work of breathing. Heart: Tachycardic rate and regular rhythm. Abdomen: Soft, without rebound guarding or rigidity. Distended and diffusely tender. Extremities: No cyanosis clubbing or edema. No calf tenderness or asymmetry Spine/Back. Non tender to palpation. No CVA tenderness Skin: Good turgor without rashes. Neurologic exam: Cranial nerves two through 12 are intact. Motor and sensation are intact and symmetrical throughout. Course 1825: The patient was evaluated in room C2B, and a complete history and physical examination were performed. 1835: The patient had a normal EGD on 02/2018. 1855: I spoke with Dr. Sanchez about the patient's case. He states she may need to see ICU but wants to discuss further when all the labs are back. 1899: I reevaluated the patient. She appears more comfortable and less shaky. The patient's heart rate is coming down. She has 2 IVs in and a 3rd one is starting. 1944: I discussed the patient's case with Dr. Mercy Baptiste - [facility] Hospitalist. She will evaluate the patient for further management Administered Medications Diazepam (Valium) 20 mg PO Q2H PRN PRN Reason: CIWA >10 Last Admin: 10/05/18 01:26 Dose: 20 mg Documented by: [id number] Lorazepam (Ativan) 2 mg in 4 mls @ 4 mls/min IV UD PRN; Protocol PRN Reason: EtOH Withdrawl AWSS Score 8,9 Stop: 11/03/18 21:54 Last Admin: 10/04/18 22:28 Dose: 4 mls/min Documented by: [id number] Thiamine HCl 100 mg/ Syringe 10 mls @ 2 mls/hr IV DAILY HUGH Stop: 11/03/18 22:14 Last Admin: 10/04/18 23:19 Dose: 2 mls/hr Documented by: [id number] Ceftriaxone Sodium 2,000 mg/ (Dextrose) 70 mls @ 140 mls/hr IV Q24H HUGH; Pr otocol Stop: 10/15/18 00:00 Last Infusion: 10/05/18 00:44 Dose: 140 mls/hr Documented by: [id number] Admin: 10/05/18 00:14 Dose: 140 mls/hr Documented by: [id number] Discontinued Medications Diazepam (Valium) 20 mg PO NOW ONE Stop: 10/04/18 21:56 Last Admin: 10/04/18 22:26 Dose: 20 mg Documented by: [id number] Gabapentin (Neurontin) 1,200 mg PO ONE ONE Stop: 10/04/18 22:01 Last Admin: 10/04/18 23:19 Dose: 1,200 mg Documented by: [id number] Multivitamins 10 ml/ Thiamine HCl 100 mg/ Folic Acid 1 mg/Sodium Chloride 1,011.2 mls @ 1,011.2 mls/hr IV .Q1H HUGH Stop: 10/04/18 19:44 Last Infusion: 10/04/18 20:22 Dose: 0 mls/hr Documented by: [id number] Admin: 10/04/18 19:08 Dose: 1,011.2 mls/hr Documented by: [id number] Sodium Chloride (Nss 1000ml) 1,000 mls @ 999 mls/hr IV .Q1H1M ONE Stop: 10/04/18 19:33 Last Infusion: 10/04/18 21:19 Dose: 0 mls/hr Documented by: [id number] Admin: 10/04/18 19:08 Dose: 999 mls/hr Documented by: [id number] Magnesium Sulfate/Dextrose (Magnesium Sulfate / D5w) 1 gm in 100 mls @ 100 mls/hr IV Q1H HUGH Stop: 10/05/18 00:14 Last Infusion: 10/05/18 01:14 Dose: 100 mls/hr Documented by: [id number] Admin: 10/05/18 00:14 Dose: 100 mls/hr Documented by: [id number] Infusion: 10/05/18 00:14 Dose: 100 mls/hr Documented by: [id number] Admin: 10/04/18 23:19 Dose: 100 mls/hr Documented by: [id number] Calcium Chloride 1,000 mg/ (Sodium Chloride) 60 mls @ 240 mls/hr IV NOW ONE Stop: 10/04/18 23:59 Last Infusion: 10/05/18 00:28 Dose: 240 mls/hr Documented by: [id number] Admin: 10/05/18 00:13 Dose: 240 mls/hr Documented by: [id number] Lorazepam (Ativan) Confirm Administered Dose 2 mg .ROUTE .STK-MED ONE Stop: 10/04/18 18:32 Last Admin: 10/04/18 18:32 Dose: 2 mg Documented by: [id number] Medical Decision Making Differential Diagnosis Differential Diagnosis: Alcohol withdrawal, seizure, liver failure, cardiac disease, and electrolyte imbalance. Medical Records Attestation: I reviewed the patient's medical records. Home Medications Current Medication List: was personally reviewed by me Laboratory Data Attestation: I reviewed the patient's lab results. Result diagrams: 10/04/18 18:17 10/04/18 18:17 Lab Results 10/04/18 10/04/18 10/04/18 Range/Units 18:17 18:17 18:17 WBC 4.20 L (4.8-10.8) K/uL RBC 2.52 L (4.2-5.4) M/uL Hgb 8.5 L (12.0-16.0) g/dL Hct 24.4 L (37-47) % MCV 96.8 (80-100) fL MCH 33.7 (25-34) pg MCHC 34.8 (32-36) g/dL RDW Std Deviation 64.0 H (36.4-46.3) fL RDW Coeff of Michelle 18.2 H (11.5-14.5) % Plt Count 41 L (130-400) K/uL MPV 10.8 H (7.4-10.4) fL Immature Gran % (Auto) 0.0 % Neut % (Auto) 59.3 % Lymph % (Auto) 32.6 % Collier % (Auto) 7.4 % Eos % (Auto) 0.2 % Baso % (Auto) 0.5 % Immature Gran # (Auto) 0.00 (0.00-0.02) K/uL Neut # (Auto) 2.49 (1.4-6.5) K/uL Lymph # (Auto) 1.37 (1.2-3.4) K/uL Collier # (Auto) 0.31 (0.11-0.59) K/uL Eos # (Auto) 0.01 (0-0.5) K/uL Baso # (Auto) 0.02 (0-0.2) K/uL Platelet Estimate Decreased L (Normal) Target Cells 1+ PT (9.0-12.0) Seconds INR (0.9-1.1) Sodium 137 (136-145) mmol/L Potassium 3.2 L (3.5-5.1) mmol/L Chloride 103 (98-107) mmol/L Carbon Dioxide 21 (21-32) mmol/L Anion Gap 13.0 H (3-11) BUN 6 L (7-18) mg/dl Creatinine 1.09 (0.6-1.2) mg/dl Est Cr Clr Drug Dosing 69.0 ml/min Est GFR ( Amer) 68.5 Est GFR (Non-Af Amer) 59.1 BUN/Creatinine Ratio 5.8 L (10-20) Glucose 145 H (70-99) mg/dl Calcium 7.0 L (8.5-10.1) mg/dl Magnesium 1.7 L (1.8-2.4) mg/dl Total Bilirubin 4.1 H (0.2-1) mg/dl AST 238 H (15-37) U/L ALT 77 (12-78) U/L Alkaline Phosphatase 199 H (45-117) U/L Ammonia (11-32) umol/L Troponin I < 0.015 (0-0.045) ng/ml Total Protein 7.4 (6.4-8.2) gm/dl Albumin 2.2 L (3.4-5.0) gm/dl Globulin 5.2 H (2.5-4.0) gm/dl Albumin/Globulin Ratio 0.4 L (0.9-2) HCG, Qual Negative (Negative) Ethyl Alcohol mg/dL (0-3) mg/dl Blood Type Antibody Screen 10/04/18 10/04/18 10/04/18 Range/Units 18:17 19:01 19:01 WBC (4.8-10.8) K/uL RBC (4.2-5.4) M/uL Hgb (12.0-16.0) g/dL Hct (37-47) % MCV (80-100) fL MCH (25-34) pg MCHC (32-36) g/dL RDW Std Deviation (36.4-46.3) fL RDW Coeff of Michelle (11.5-14.5) % Plt Count (130-400) K/uL MPV (7.4-10.4) fL Immature Gran % (Auto) % Neut % (Auto) % Lymph % (Auto) % Collier % (Auto) % Eos % (Auto) % Baso % (Auto) % Immature Gran # (Auto) (0.00-0.02) K/uL Neut # (Auto) (1.4-6.5) K/uL Lymph # (Auto) (1.2-3.4) K/uL Collier # (Auto) (0.11-0.59) K/uL Eos # (Auto) (0-0.5) K/uL Baso # (Auto) (0-0.2) K/uL Platelet Estimate (Normal) Target Cells PT 20.7 H (9.0-12.0) Seconds INR 2.1 H (0.9-1.1) Sodium (136-145) mmol/L Potassium (3.5-5.1) mmol/L Chloride (98-107) mmol/L Carbon Dioxide (21-32) mmol/L Anion Gap (3-11) BUN (7-18) mg/dl Creatinine (0.6-1.2) mg/dl Est Cr Clr Drug Dosing ml/min Est GFR ( Amer) Est GFR (Non-Af Amer) BUN/Creatinine Ratio (10-20) Glucose (70-99) mg/dl Calcium (8.5-10.1) mg/dl Magnesium (1.8-2.4) mg/dl Total Bilirubin (0.2-1) mg/dl AST (15-37) U/L ALT (12-78) U/L Alkaline Phosphatase (45-117) U/L Ammonia 42.0 H (11-32) umol/L Troponin I (0-0.045) ng/ml Total Protein (6.4-8.2) gm/dl Albumin (3.4-5.0) gm/dl Globulin (2.5-4.0) gm/dl Albumin/Globulin Ratio (0.9-2) HCG, Qual (Negative) Ethyl Alcohol mg/dL 324.0 H (0-3) mg/dl Blood Type Antibody Screen 10/04/18 Range/Units 19:01 WBC (4.8-10.8) K/uL RBC (4.2-5.4) M/uL Hgb (12.0-16.0) g/dL Hct (37-47) % MCV (80-100) fL MCH (25-34) pg MCHC (32-36) g/dL RDW Std Deviation (36.4-46.3) fL RDW Coeff of Michelle (11.5-14.5) % Plt Count (130-400) K/uL MPV (7.4-10.4) fL Immature Gran % (Auto) % Neut % (Auto) % Lymph % (Auto) % Collier % (Auto) % Eos % (Auto) % Baso % (Auto) % Immature Gran # (Auto) (0.00-0.02) K/uL Neut # (Auto) (1.4-6.5) K/uL Lymph # (Auto) (1.2-3.4) K/uL Collier # (Auto) (0.11-0.59) K/uL Eos # (Auto) (0-0.5) K/uL Baso # (Auto) (0-0.2) K/uL Platelet Estimate (Normal) Target Cells PT (9.0-12.0) Seconds INR (0.9-1.1) Sodium (136-145) mmol/L Potassium (3.5-5.1) mmol/L Chloride (98-107) mmol/L Carbon Dioxide (21-32) mmol/L Anion Gap (3-11) BUN (7-18) mg/dl Creatinine (0.6-1.2) mg/dl Est Cr Clr Drug Dosing ml/min Est GFR ( Amer) Est GFR (Non-Af Amer) BUN/Creatinine Ratio (10-20) Glucose (70-99) mg/dl Calcium (8.5-10.1) mg/dl Magnesium (1.8-2.4) mg/dl Total Bilirubin (0.2-1) mg/dl AST (15-37) U/L ALT (12-78) U/L Alkaline Phosphatase (45-117) U/L Ammonia (11-32) umol/L Troponin I (0-0.045) ng/ml Total Protein (6.4-8.2) gm/dl Albumin (3.4-5.0) gm/dl Globulin (2.5-4.0) gm/dl Albumin/Globulin Ratio (0.9-2) HCG, Qual (Negative) Ethyl Alcohol mg/dL (0-3) mg/dl Blood Type A Positive Antibody Screen NEGATIVE Imaging Data Radiologist's Impression: Radiology results as stated below per my review and the radiologist's interpretation: XR chest 1V portable CLINICAL HISTORY: 48 years-old Female presenting with seizure. TECHNIQUE: Portable upright AP view of the chest was obtained. COMPARISON: 06/28/2018. FINDINGS: Cardiomediastinal silhouette normal. No focal opacity. No large effusion or pneumothorax. Old nonunited right clavicle fracture. Upper abdomen normal. IMPRESSION: 1. No acute cardiopulmonary disease. Electronically signed by: Cheng Tim M.D. 10/04/2018 7:17 PM Blood Pressure Blood Pressure Findings: Normal blood pressure Blood Pressure Disposition: further management by hospitalist KAYLEIGH Narrative This patient comes in as described above. She was placed in room C2. She is here for treatment and evaluation of seizures and alcohol withdrawal. She has a history of alcohol abuse. I am concerned initially she may be withdrawing. she is tachycardic and seems shaky we gave her 2 mg of Ativan IV and she settled down became less tachycardic she was normotensive. Also gave her IV fluid bolus. I ordered IV banana bag as well. She did throw up and said it was dark. She has been seen by GI in the past and it sounds like she has not had varices. She was typed and crossed. She has no significant white count. Her alcohol was elevated at 324. Her EKG and troponin do not suggest acute coronary syndro me nor do her symptoms.. Her potassium is mildly low but she has no other significant electrolyte or metabolic abnormalities. I do think she needs to be admitted/observed I think she is having alcohol abuse alcohol withdrawal and seizures it is possible she could have an upper GI bleed as well. I initially had talked to Dr. Sanchez from the ICU however she had responded well to Ativan and fluids and I have consulted Dr. Baptiste to see her in the ER. Impression & Plan Alcohol withdrawal, Seizure, Nausea & vomiting, Thrombocytopenia Critical Care Time Critical Care Time: Yes Total Critical Care Time: 30 I have personally spent greater than 30 minutes of critical care time in the direct management of this patient. This includes bedside care, interpretation of diagnostic studies, and testing, discussion with consultants, patient, and family members, and other required patient management activities. This 30 minutes is in excess of all separately billable procedures. Discharge Plan Visit Data *Final* Discharge Date/Time: 10/04/18 21:46 Chief Complaint: Seizure ED Provider: Valentino Balderrama Discharge Problem: Alcohol withdrawal, Seizure, Nausea & vomiting, Thrombocytopenia Patient Disposition: Admitted As Inpatient Discharge Instructions Interventions: ED Discharge Assessment Last Done: 10/04/18 21:46 Discharge Problem: Alcohol withdrawal Qualifiers: Complication of substance-induced condition: with unspecified complication Qualified Code(s): F10.239 - Alcohol dependence with withdrawal, unspecified Nausea & vomiting Qualifiers: Vomiting type: unspecified Vomiting Intractability: non-intractable Qualified Code(s): R11.2 - Nausea with vomiting, unspecified The scribe's documentation has been prepared under my direction and personally reviewed by me in its entirety. I confirm that the note above accurately reflects all work, treatment, procedures, and medical decision making performed by me.
[2018-10-05 02:10] LABS: Hemoglobin 7.1 g/dL (12.0-16.0); Mean Corpuscular Hgb Conc 33.8 g/dL (32-36); Mean Corpuscular Volume 96.3 fL (80-100); Nucleated RBC # (auto) 0.02 K/uL (0-0); Nucleated RBC % (auto) 0.5 %; RDW Coefficient of Variation 18.4 % (11.5-14.5); RDW Standard Deviation 65.1 fL (36.4-46.3); Red Blood Count 2.18 M/uL (4.2-5.4); White Blood Count 4.78 K/uL (4.8-10.8)
[2018-10-05 02:32] LABS: Platelet Count 31 K/uL (130-400)
[2018-10-05 02:41] LABS: Basophils # (auto) 0.03 K/uL (0-0.2); Basophils % (auto) 0.6 %; Eosinophils # (auto) 0.02 K/uL (0-0.5); Eosinophils % (auto) 0.4 %; Immature Granulocytes # (auto) 0.04 K/uL (0.00-0.02); Immature Granulocytes % (auto) 0.8 %; Lymphocytes % (auto) 39.7 %; Monocytes # (auto) 0.44 K/uL (0.11-0.59); Monocytes % (auto) 9.2 %; Neutrophils # (auto) 2.35 K/uL (1.4-6.5); Neutrophils % (auto) 49.3 %; RBC Morphology Unremarkable
[2018-10-05] MEDS: LORazepam 2 MG/4 ML VIAL IV PRN (04:10)
[2018-10-05] MEDS: GABAPENTIN 600 MG TAB PO SCH ×2 (04:11→09:39)
[2018-10-05 06:43] LABS: Hematocrit (blood only) 23.4 % (37-47); Hemoglobin 8.1 g/dL (12.0-16.0); Mean Corpuscular Hgb Conc 34.6 g/dL (32-36); Mean Corpuscular Volume 97.9 fL (80-100); Platelet Count 36 K/uL (130-400); RDW Coefficient of Variation 18.5 % (11.5-14.5); RDW Standard Deviation 66.5 fL (36.4-46.3); Red Blood Count 2.39 M/uL (4.2-5.4); White Blood Count 4.16 K/uL (4.8-10.8)
[2018-10-05 06:45] LABS: Prothrombin Time 19.4 Seconds (9.0-12.0)
--- NOTE | 2018-10-05 06:48 | Ultrasound Report ---
US abdomen limited HISTORY: 48 years-old Female Abnormal LFTs acutely abnormal LFTs COMPARISON: CT abdomen and pelvis 06/28/2018 TECHNIQUE: Multiple real-time sonographic images of the abdominal right upper quadrant were obtained assessing grayscale appearance and color flow FINDINGS: Limited exam secondary to patient condition. Pancreas is mostly obscured by bowel gas with the imaged portions appearing unremarkable. Severe hepatic steatosis with marginal nodularity compatible with c irrhosis. Mild right upper quadrant abdominal ascites. No focal hepatic mass lesion identified. No in trahepatic biliary ductal dilation. Common bile duct measures 5 mm. Prior cholecystectomy. Imaged right kidney is unremarkable without hydronephrosis. IMPRESSION: 1. Hepatic steatosis with cirrhosis and small volume right upper quadrant ascites. 2. Cholecystectomy. 3. No biliary ductal dilation. The above report was generated using voice recognition software. It may contain grammatical, syntax o r spelling errors. Electronically signed by: Sam Etienne M.D. 10/05/2018 6:46 AM
--- NOTE | 2018-10-05 06:50 | Ultrasound Report ---
US abdomen ltd ascites HISTORY: 48 years-old Female ascites study acute generalized abdominal distention with ascites COMPARISON: Right upper quadrant abdominal ultrasound of same day, CT abdomen and pelvis 06/28/2018 TECHNIQUE: Multiple real-time sonographic images of the abdomen were obtained assessing grayscale leon earance FINDINGS: Cirrhotic morphology of the liver with hepatic steatosis. Mild volume of abdominal ascites noted with in all 4 quadrants of the abdomen containing low-level echoes. IMPRESSION: Mild volume of abdominopelvic ascites. The above report was generated using voice recognition software. It may contain grammatical, syntax o r spelling errors. Electronically signed by: Sam Etienne M.D. 10/05/2018 6:49 AM
[2018-10-05 06:51] LABS: Basophils # (auto) 0.03 K/uL (0-0.2); Basophils % (auto) 0.7 %; Eosinophils # (auto) 0.03 K/uL (0-0.5); Eosinophils % (auto) 0.7 %; Lymphocytes # (auto) 1.93 K/uL (1.2-3.4); Lymphocytes % (auto) 46.4 %; Monocytes # (auto) 0.39 K/uL (0.11-0.59); Monocytes % (auto) 9.4 %; Neutrophils # (auto) 1.78 K/uL (1.4-6.5); Neutrophils % (auto) 42.8 %
[2018-10-05 07:13] LABS: Albumin Level 2.3 gm/dl (3.4-5.0); Bilirubin Direct 4.6 mg/dl (0-0.2); Bilirubin,Total 6.3 mg/dl (0.2-1); Calcium 7.5 mg/dl (8.5-10.1); Creatinine Clr Calc Pharmacy 88.5 ml/min; Est GFR (African American) 92.6; Est GFR (Non-African American) 79.9; Potassium 3.6 mmol/L (3.5-5.1); Total Protein 7.8 gm/dl (6.4-8.2)
[2018-10-05 07:15] LABS: Amphetamines+Metham, Urine Neg (Neg); Barbiturates, Urine Neg (Neg); Benzodiazepine, Urine Pos (Neg); Cocaine, Urine Neg (Neg); MDMA (Ecstacy), Urine Neg (Neg); Methadone, Urine Neg (Neg); Opiate, Urine Neg (Neg); Phencyclidine, Urine Neg (Neg)
--- NOTE | 2018-10-05 08:18 | Family Medicine Progress Note ---
Date of Service October 05, 2018 Assessment & Plan (1) Alcohol withdrawal: 48yo female with chronic Hx of alcohol abuse presenting with seizures likely related to alcohol withdrawal. Alcohol Withdrawal -Pt states last drink this AM but had seizures before that yesterday. Alcohol level >300 on admission. States she had been cutting down before her drink this AM due to her birthday being recently and turning 48. -Currently tachycardic in the 140s. -On CIWA protocol with gabapentin -Continue thiamine and folate -PRN Ativan and Valium -Urine tox-positive for benzos -Continue seizure protocol Seizure Hx -Likely due to acute alcohol withdrawal but ruling out other electrolyte/metabolic causes -Electrolytes within normal range except for decreased calcium. Ammonia mildly elevated at 42. -Calcium replenished as below. -continue seizure protocol -continue Topamax Hypocalcemia -1 gram Calcium chloride on admission. -Another gram given today for a still decreased ionized calcium level. Alcoholic Cirrhosis -Pt with ascites and cirrhosis noted on abd US this visit -Correlates with tense, tender, distended abd noted on exam. No spider angiomata noted -Likely due to chronic alcohol use. -PT/INR levels increased -Placed on ceftriaxone for possible spontaneous bacterial peritonitis. -To further evaluate for diagnostic paracentesis. Possible Acute Bleed -pt with Hx of esophageal varices, gastritis -gave hx of bringing up dark vomitus -Seemingly resolved currently -H/H down from 8.5 on presentation to 7.3 currently. follow h/h closely. -occult stool negative -ranitidine and Protonix. Pancytopenia -WBC now within normal range -Platelets and anemia still present -Likely due to cirrhosis and chronic alcohol use -will continue to monitor Gastritis -Continue ranitidine and Protonix Hypomagnesemia -Replenished with IV on admission -Mag-Ox 400mg daily ordered -will continue to monitor Hypokalemia -currently resolved -will continue to monitor FEN-NPO currently, received banana bag DVT Proph: low risk Code: Full Dispo: Discharge pending resolution of withdrawal symptoms Supervising Physician Co-Signing Physician Notes Resident Physician Supervision Note: I independently interviewed and examined the patient and verified the cooper history and physical, reviewed labs and image studies, discussed the case with the resident Dr. Khanna and agree with the findings and care plan. patient requiring excess amount of benzodiazepine, starting to have hallucination - Considering severe withdrawal patient transferred to ICU. Tramadol was added for pain control - would lower seizure threshold - d/dawn by principal web developer. Subjective Ms. Barros states that she is in pain. States that her last drink was this AM. States she has no desire to go to rehab after this, would just like to get better medically. States her seizures occurred yesterday before her last drink. States she has BARRETT and diffuse pain, but no diarrhea or constipation and nausea and vomitting have seemingly resolved. Review of Systems Review of Systems: All systems reviewed & are unremarkable except as noted in HPI & below Physical Exam 2 Physical Exam: General: Alert, oriented. Laying in bed. HEENT: NC/AT. Chest: Nontender to palpation. CV: RRR, Normal s1, s2. No murmurs appreciated Resp: Breath sounds clear bilaterally, no increased effort of breathing. Abdomen: Firm, tense, diffusely tender, distended. Extremities: No edema in lower extremities. Results & Data Vital Signs (Past 12 Hours) Vital Signs Temp Pulse Pulse Pulse Resp BP BP 10/05/18 07:57 37.1 C 145 H 20 100/70 10/05/18 04:06 36.8 C 128 H 18 119/84 10/04/18 23:27 36.6 C 139 H 19 114/74 10/04/18 21:55 37.1 C 131 H 26 H 118/92 10/04/18 21:31 123 H 15 10/04/18 21:30 126 H 18 100/69 10/04/18 21:27 120 H 106/67 10/04/18 21:16 121 H 19 10/04/18 21:15 120 H 19 106/67 10/04/18 21:06 123 H 20 93/68 L 10/04/18 21:04 127 H 17 10/04/18 21:02 125 H 19 241/225 H 10/04/18 21:00 127 H 21 10/04/18 20:46 110 H 17 10/04/18 20:45 110 H 17 99/76 L 10/04/18 20:31 108 H 19 10/04/18 20:30 108 H 17 112/83 10/04/18 20:21 120 H 115 H 18 115/81 115/81 10/04/18 20:19 117 H 17 Pulse Ox Pulse Ox 10/05/18 07:57 93 10/05/18 04:06 94 10/04/18 23:27 94 10/04/18 21:55 98 99 10/04/18 21:31 95 10/04/18 21:30 97 10/04/18 21:27 97 10/04/18 21:16 10/04/18 21:15 10/04/18 21:06 10/04/18 21:04 10/04/18 21:02 10/04/18 21:00 10/04/18 20:46 98 10/04/18 20:45 98 10/04/18 20:31 97 10/04/18 20:30 98 10/04/18 20:21 99 10/04/18 20:19 99 Laboratory Results Laboratory Results - last 24 hr 10/04/18 10/04/18 10/04/18 18:17 18:17 18:17 WBC 4.20 L RBC 2.52 L Hgb 8.5 L Hct 24.4 L MCV 96.8 MCH 33.7 MCHC 34.8 RDW Std Deviation 64.0 H RDW Coeff of Michelle 18.2 H Plt Count 41 L MPV 10.8 H Immature Gran % (Auto) 0.0 Neut % (Auto) 59.3 Lymph % (Auto) 32.6 Drew % (Auto) 7.4 Eos % (Auto) 0.2 Baso % (Auto) 0.5 Immature Gran # (Auto) 0.00 Neut # (Auto) 2.49 Lymph # (Auto) 1.37 Drew # (Auto) 0.31 Eos # (Auto) 0.01 Baso # (Auto) 0.02 Absolute Nucleated RBC Nucleated RBC % (auto) Platelet Estimate Decreased L Giant Platelets RBC Morphology Anisocytosis Target Cells 1+ PT INR Sodium 137 Potassium 3.2 L Chloride 103 Carbon Dioxide 21 Anion Gap 13.0 H BUN 6 L Creatinine 1.09 Est Cr Clr Drug Dosing 69.0 Est GFR ( Amer) 68.5 Est GFR (Non-Af Amer) 59.1 BUN/Creatinine Ratio 5.8 L Glucose 145 H Calcium 7.0 L Ionized Calcium Magnesium 1.7 L Total Bilirubin 4.1 H Direct Bilirubin AST 238 H ALT 77 Alkaline Phosphatase 199 H Ammonia Troponin I < 0.015 Total Protein 7.4 Albumin 2.2 L Globulin 5.2 H Albumin/Globulin Ratio 0.4 L Vitamin B12 HCG, Qual Negative Stool Occult Bld Scrn Urine Opiates Screen Ur Methadone, Qual Acetaminophen Urine Barbiturates Ur Phencyclidine (PCP) U Amphetamin/Meth Scrn MDMA (Ecstasy) Screen U OH-Alprazolam Confrm U Benzodiazepines Scrn 7-Amino Clonazepam Ur Nordiazepam Confirm U OH-ethylflurazepam U Lorazepam Cnf GC/MS U Oxazepam Confm GC/MS Ur Temazepam Confirm U OH-Triazolam Confirm U OH-Midazolam Confirm Ur Cocaine Metabolite U Marijuana (THC) Screen Ethyl Alcohol mg/dL Miscellaneous Test Blood Type Antibody Screen 10/04/18 10/04/18 10/04/18 18:17 19:01 19:01 WBC RBC Hgb Hct MCV MCH MCHC RDW Std Deviation RDW Coeff of Michelle Plt Count MPV Immature Gran % (Auto) Neut % (Auto) Lymph % (Auto) Drew % (Auto) Eos % (Auto) Baso % (Auto) Immature Gran # (Auto) Neut # (Auto) Lymph # (Auto) Drew # (Auto) Eos # (Auto) Baso # (Auto) Absolute Nucleated RBC Nucleated RBC % (auto) Platelet Estimate Giant Platelets RBC Morphology Anisocytosis Target Cells PT 20.7 H INR 2.1 H Sodium Potassium Chloride Carbon Dioxide Anion Gap BUN Creatinine Est Cr Clr Drug Dosing Est GFR ( Amer) Est GFR (Non-Af Amer) BUN/Creatinine Ratio Glucose Calcium Ionized Calcium Magnesium Total Bilirubin Direct Bilirubin AST ALT Alkaline Phosphatase Ammonia 42.0 H Troponin I Total Protein Albumin Globulin Albumin/Globulin Ratio Vitamin B12 HCG, Qual Stool Occult Bld Scrn Urine Opiates Screen Ur Methadone, Qual Acetaminophen Urine Barbiturates Ur Phencyclidine (PCP) U Amphetamin/Meth Scrn MDMA (Ecstasy) Screen U OH-Alprazolam Confrm U Benzodiazepines Scrn 7-Amino Clonazepam Ur Nordiazepam Confirm U OH-ethylflurazepam U Lorazepam Cnf GC/MS U Oxazepam Confm GC/MS Ur Temazepam Confirm U OH-Triazolam Confirm U OH-Midazolam Confirm Ur Cocaine Metabolite U Marijuana (THC) Screen Ethyl Alcohol mg/dL 324.0 H Miscellaneous Test Blood Type Antibody Screen 10/04/18 10/04/18 10/04/18 19:01 22:13 22:13 WBC RBC Hgb Hct MCV MCH MCHC RDW Std Deviation RDW Coeff of Michelle Plt Count MPV Immature Gran % (Auto) Neut % (Auto) Lymph % (Auto) Drew % (Auto) Eos % (Auto) Baso % (Auto) Immature Gran # (Auto) Neut # (Auto) Lymph # (Auto) Drew # (Auto) Eos # (Auto) Baso # (Auto) Absolute Nucleated RBC Nucleated RBC % (auto) Platelet Estimate Giant Platelets RBC Morphology Anisocytosis Target Cells PT INR Sodium Potassium Chloride Carbon Dioxide Anion Gap BUN Creatinine Est Cr Clr Drug Dosing Est GFR ( Amer) Est GFR (Non-Af Amer) BUN/Creatinine Ratio Glucose Calcium Ionized Calcium Magnesium Total Bilirubin Direct Bilirubin AST ALT Alkaline Phosphatase Ammonia Troponin I Total Protein Albumin Globulin Albumin/Globulin Ratio Vitamin B12 1469 H HCG, Qual Stool Occult Bld Scrn Urine Opiates Screen Ur Methadone, Qual Acetaminophen Urine Barbiturates Ur Phencyclidine (PCP) U Amphetamin/Meth Scrn MDMA (Ecstasy) Screen U OH-Alprazolam Confrm U Benzodiazepines Scrn 7-Amino Clonazepam Ur Nordiazepam Confirm U OH-ethylflurazepam U Lorazepam Cnf GC/MS U Oxazepam Confm GC/MS Ur Temazepam Confirm U OH-Triazolam Confirm U OH-Midazolam Confirm Ur Cocaine Metabolite U Marijuana (THC) Screen Ethyl Alcohol mg/dL Miscellaneous Test Blood Type A Positive Antibody Screen NEGATIVE 10/04/18 10/05/18 10/05/18 22:13 01:55 06:24 WBC 4.78 L RBC 2.18 L Hgb 7.1 L Hct 21.0 L MCV 96.3 MCH 32.6 MCHC 33.8 RDW Std Deviation 65.1 H RDW Coeff of Michelle 18.4 H Plt Count 31 L MPV 10.0 Immature Gran % (Auto) 0.8 Neut % (Auto) 49.3 Lymph % (Auto) 39.7 Drew % (Auto) 9.2 Eos % (Auto) 0.4 Baso % (Auto) 0.6 Immature Gran # (Auto) 0.04 H Neut # (Auto) 2.35 Lymph # (Auto) 1.90 Drew # (Auto) 0.44 Eos # (Auto) 0.02 Baso # (Auto) 0.03 Absolute Nucleated RBC 0.02 H Nucleated RBC % (auto) 0.5 Platelet Estimate Giant Platelets RBC Morphology Unremarkable Anisocytosis Target Cells PT INR Sodium Potassium Chloride Carbon Dioxide Anion Gap BUN Creatinine Est Cr Clr Drug Dosing Est GFR ( Amer) Est GFR (Non-Af Amer) BUN/Creatinine Ratio Glucose Calcium Ionized Calcium 0.90 L 0.99 L Magnesium Total Bilirubin Direct Bilirubin AST ALT Alkaline Phosphatase Ammonia Troponin I Total Protein Albumin Globulin Albumin/Globulin Ratio Vitamin B12 HCG, Qual Stool Occult Bld Scrn Urine Opiates Screen Ur Methadone, Qual Acetaminophen Urine Barbiturates Ur Phencyclidine (PCP) U Amphetamin/Meth Scrn MDMA (Ecstasy) Screen U OH-Alprazolam Confrm U Benzodiazepines Scrn 7-Amino Clonazepam Ur Nordiazepam Confirm U OH-ethylflurazepam U Lorazepam Cnf GC/MS U Oxazepam Confm GC/MS Ur Temazepam Confirm U OH-Triazolam Confirm U OH-Midazolam Confirm Ur Cocaine Metabolite U Marijuana (THC) Screen Ethyl Alcohol mg/dL Miscellaneous Test Blood Type Antibody Screen 10/05/18 10/05/18 10/05/18 06:24 06:24 06:24 WBC 4.16 L RBC 2.39 L Hgb 8.1 L Hct 23.4 L MCV 97.9 MCH 33.9 MCHC 34.6 RDW Std Deviation 66.5 H RDW Coeff of Michelle 18.5 H Plt Count 36 L MPV 12.0 H Immature Gran % (Auto) 0.0 Neut % (Auto) 42.8 Lymph % (Auto) 46.4 Drew % (Auto) 9.4 Eos % (Auto) 0.7 Baso % (Auto) 0.7 Immature Gran # (Auto) 0.00 Neut # (Auto) 1.78 Lymph # (Auto) 1.93 Drew # (Auto) 0.39 Eos # (Auto) 0.03 Baso # (Auto) 0.03 Absolute Nucleated RBC Nucleated RBC % (auto) Platelet Estimate Giant Platelets RBC Morphology Anisocytosis Target Cells PT 19.4 H INR 2.0 H Sodium 136 Potassium 3.6 Chloride 104 Carbon Dioxide 23 Anion Gap 9.0 BUN 7 Creatinine 0.85 Est Cr Clr Drug Dosing 88.5 Est GFR ( Amer) 92.6 Est GFR (Non-Af Amer) 79.9 BUN/Creatinine Ratio 8.0 L Glucose 85 Calcium 7.5 L Ionized Calcium Magnesium Total Bilirubin 6.3 H D Direct Bilirubin 4.6 H AST 286 H ALT 92 H Alkaline Phosphatase 207 H Ammonia Troponin I Total Protein 7.8 Albumin 2.3 L Globulin Albumin/Globulin Ratio Vitamin B12 HCG, Qual Stool Occult Bld Scrn Urine Opiates Screen Ur Methadone, Qual Acetaminophen Urine Barbiturates Ur Phencyclidine (PCP) U Amphetamin/Meth Scrn MDMA (Ecstasy) Screen U OH-Alprazolam Confrm U Benzodiazepines Scrn 7-Amino Clonazepam Ur Nordiazepam Confirm U OH-ethylflurazepam U Lorazepam Cnf GC/MS U Oxazepam Confm GC/MS Ur Temazepam Confirm U OH-Triazolam Confirm U OH-Midazolam Confirm Ur Cocaine Metabolite U Marijuana (THC) Screen Ethyl Alcohol mg/dL Miscellaneous Test Blood Type Antibody Screen 10/05/18 10/05/18 10/05/18 10:03 11:10 22:13 WBC 5.80 RBC 2.21 L Hgb 7.3 L Hct 21.4 L MCV 96.8 MCH 33.0 MCHC 34.1 RDW Std Deviation 66.0 H RDW Coeff of Michelle 18.8 H Plt Count 38 L MPV 11.2 H Immature Gran % (Auto) 0.5 Neut % (Auto) 66.3 Lymph % (Auto) 18.4 Drew % (Auto) 13.6 Eos % (Auto) 0.3 Baso % (Auto) 0.9 Immature Gran # (Auto) 0.03 H Neut # (Auto) 3.84 Lymph # (Auto) 1.07 L Drew # (Auto) 0.79 H Eos # (Auto) 0.02 Baso # (Auto) 0.05 Absolute Nucleated RBC Nucleated RBC % (auto) Platelet Estimate Decreased L Giant Platelets 1+ RBC Morphology Anisocytosis Present Target Cells 1+ PT INR Sodium Potassium Chloride Carbon Dioxide Anion Gap BUN Creatinine Est Cr Clr Drug Dosing Est GFR ( Amer) Est GFR (Non-Af Amer) BUN/Creatinine Ratio Glucose Calcium Ionized Calcium Magnesium Total Bilirubin Direct Bilirubin AST ALT Alkaline Phosphatase Ammonia Troponin I Total Protein Albumin Globulin Albumin/Globulin Ratio Vitamin B12 HCG, Qual Stool Occult Bld Scrn Negative Urine Opiates Screen Ur Methadone, Qual Acetaminophen Urine Barbiturates Ur Phencyclidine (PCP) U Amphetamin/Meth Scrn MDMA (Ecstasy) Screen U OH-Alprazolam Confrm U Benzodiazepines Scrn 7-Amino Clonazepam Ur Nordiazepam Confirm U OH-ethylflurazepam U Lorazepam Cnf GC/MS U Oxazepam Confm GC/MS Ur Temazepam Confirm U OH-Triazolam Confirm U OH-Midazolam Confirm Ur Cocaine Metabolite U Marijuana (THC) Screen Ethyl Alcohol mg/dL Miscellaneous Test Pending Blood Type Antibody Screen 10/05/18 10/05/18 Unknown Unknown WBC RBC Hgb Hct MCV MCH MCHC RDW Std Deviation RDW Coeff of Michelle Plt Count MPV Immature Gran % (Auto) Neut % (Auto) Lymph % (Auto) Drew % (Auto) Eos % (Auto) Baso % (Auto) Immature Gran # (Auto) Neut # (Auto) Lymph # (Auto) Drew # (Auto) Eos # (Auto) Baso # (Auto) Absolute Nucleated RBC Nucleated RBC % (auto) Platelet Estimate Giant Platelets RBC Morphology Anisocytosis Target Cells PT INR Sodium Potassium Chloride Carbon Dioxide Anion Gap BUN Creatinine Est Cr Clr Drug Dosing Est GFR ( Amer) Est GFR (Non-Af Amer) BUN/Creatinine Ratio Glucose Calcium Ionized Calcium Magnesium Total Bilirubin Direct Bilirubin AST ALT Alkaline Phosphatase Ammonia Troponin I Total Protein Albumin Globulin Albumin/Globulin Ratio Vitamin B12 HCG, Qual Stool Occult Bld Scrn Urine Opiates Screen Neg Ur Methadone, Qual Neg Acetaminophen Urine Barbiturates Neg Ur Phencyclidine (PCP) Neg U Amphetamin/Meth Scrn Neg MDMA (Ecstasy) Screen Neg U OH-Alprazolam Confrm Pending U Benzodiazepines Scrn Pos H 7-Amino Clonazepam Pending Ur Nordiazepam Confirm Pending U OH-ethylflurazepam Pending U Lorazepam Cnf GC/MS Pending U Oxazepam Confm GC/MS Pending Ur Temazepam Confirm Pending U OH-Triazolam Confirm Pending U OH-Midazolam Confirm Pending Ur Cocaine Metabolite Neg U Marijuana (THC) Screen Neg Ethyl Alcohol mg/dL Miscellaneous Test Blood Type Antibody Screen Medications Administered Home Medications pantoprazole [Protonix] 40 mg PO DAILY 28 Days #28 tab 09/16/18 [Rx Confirmed 10/04/18] Potassium Tab 1 tab PO DAILY 10/04/18 [History Confirmed 10/04/18] folic acid 1 mg PO DAILY 10/04/18 [History Confirmed 10/04/18] magnesium oxide 400 mg PO DAILY 10/04/18 [History Confirmed 10/04/18] penicillin V potassium 500 mg PO QID 10/04/18 [History Confirmed 10/04/18] ranitidine HCl 150 mg PO HS 10/04/18 [History Confirmed 10/04/18] topiramate [Topamax] 100 mg PO BID 10/04/18 [History Confirmed 10/04/18] Active Medications Diazepam (Valium) 20 mg PO Q2H PRN PRN Reason: CIWA >10 Last Admin: 10/05/18 01:26 Dose: 20 mg Documented by: Folic Acid (Folvite) 1 mg PO DAILY [facility] Stop: 11/04/18 08:59 Last Admin: 10/05/18 09:39 Dose: 1 mg Documented by: Gabapentin (Neurontin) 600 mg PO Q24H [facility] Stop: 10/08/18 10:01 Gabapentin (Neurontin) 600 mg PO Q8H [facility] Stop: 10/06/18 10:01 Gabapentin (Neurontin) 600 mg PO Q12H [facility] Stop: 10/07/18 10:01 Lorazepam (Ativan) 3 mg in 6 mls @ 4 mls/min IV ONCE PRN; Protocol PRN Reason: EtOH Withdrawl AWSS Score >=10 Stop: 11/03/18 21:54 Last Admin: 10/05/18 11:12 Dose: 4 mls/min Documented by: Lorazepam (Ativan) 1 mg in 2 mls @ 2 mls/min IV UD PRN; Protocol PRN Reason: EtOH Withdrawl AWSS Score 6,7 Stop: 11/03/18 21:54 Lorazepam (Ativan) 2 mg in 4 mls @ 4 mls/min IV UD PRN; Protocol PRN Reason: EtOH Withdrawl AWSS Score 8,9 Stop: 11/03/18 21:54 Last Admin: 10/05/18 04:10 Dose: 4 mls/min Documented by: Thiamine HCl 100 mg/ Syringe 10 mls @ 2 mls/hr IV DAILY [facility] Stop: 11/03/18 22:14 Last Admin: 10/05/18 09:37 Dose: 2 mls/hr Documented by: Ceftriaxone Sodium 2,000 mg/ (Dextrose) 70 mls @ 140 mls/hr IV Q24H [facility]; Protocol Stop: 10/15/18 00:00 Last Infusion: 10/05/18 00:44 Dose: Infused Documented by: Magnesium Oxide (Mag-Ox) 400 mg PO DAILY [facility] Stop: 11/04/18 08:59 Last Admin: 10/05/18 09:38 Dose: 400 mg Documented by: Ondansetron HCl (Zofran) 4 mg IV Q6H PRN PRN Reason: Nausea Stop: 11/03/18 21:54 Pantoprazole Sodium (Protonix) 40 mg PO DAILY [facility] Stop: 11/04/18 08:59 Last Admin: 10/05/18 09:39 Dose: 40 mg Documented by: Penicillin V Potassium (Veetids) 500 mg PO QID [facility] Stop: 10/15/18 08:59 Last Admin: 10/05/18 09:39 Dose: 500 mg Documented by: Ranitidine HCl (Zantac) 150 mg PO HS [facility] Stop: 11/04/18 20:59 Topiramate (Topamax) 100 mg PO BID [facility] Stop: 11/04/18 08:59 Last Admin: 10/05/18 09:39 Dose: 100 mg Documented by: Tramadol HCl (Ultram) 50 mg PO Q12 PRN PRN Reason: Pain Stop: 11/04/18 20:59 Resident Activity Tracking Resident Involvement: Resident Care Provided Care Provided: Adult Hospital Medicine (1) Alcohol withdrawal Complication of substance-induced condition: with unspecified complication Qualified Code(s): F10.239 - Alcohol dependence with withdrawal, unspecified
[2018-10-05] MEDS ORDERED: PANTOprazole 40 MG TAB PO SCH (09:00)
[2018-10-05] MEDS: LORazepam 3 MG/6 ML VIAL IV PRN ×3 (09:32→17:18)
[2018-10-05] MEDS: THIAMINE HCL 100 MG in SYRINGE 9 ML IV SCH (09:37)
[2018-10-05] MEDS: MAGNESIUM OXIDE 400 MG TAB PO SCH (09:38)
[2018-10-05] MEDS: TOPIRAMATE 100 MG TAB PO SCH ×3 (09:39→22:36)
[2018-10-05] MEDS: PENICILLIN V POTASSIUM 500 MG TAB PO SCH ×3 (09:39→18:16)
[2018-10-05] MEDS: PANTOprazole 40 MG TAB PO SCH (09:39)
[2018-10-05] MEDS: FOLIC ACID 1 MG TAB PO SCH (09:39)
[2018-10-05 10:28] LABS: Hematocrit (blood only) 21.4 % (37-47); Hemoglobin 7.3 g/dL (12.0-16.0); Mean Corpuscular Hgb Conc 34.1 g/dL (32-36); Mean Corpuscular Volume 96.8 fL (80-100); RDW Coefficient of Variation 18.8 % (11.5-14.5); Red Blood Count 2.21 M/uL (4.2-5.4)
[2018-10-05 11:06] LABS: Anisocytosis Present; Basophils # (auto) 0.05 K/uL (0-0.2); Basophils % (auto) 0.9 %; Eosinophils # (auto) 0.02 K/uL (0-0.5); Eosinophils % (auto) 0.3 %; Giant Platelets 1+; Immature Granulocytes # (auto) 0.03 K/uL (0.00-0.02); Immature Granulocytes % (auto) 0.5 %; Lymphocytes # (auto) 1.07 K/uL (1.2-3.4); Lymphocytes % (auto) 18.4 %; Mean Platelet Volume 11.2 fL (7.4-10.4); Monocytes # (auto) 0.79 K/uL (0.11-0.59); Monocytes % (auto) 13.6 %; Neutrophils # (auto) 3.84 K/uL (1.4-6.5); Neutrophils % (auto) 66.3 %; Platelet Count 38 K/uL (130-400); Platelet Estimate Decreased (Normal); Target Cells 1+
[2018-10-05] MEDS ORDERED: TRAMADOL HCL 50 MG TABLET PO PRN (12:00)
[2018-10-05] MEDS ORDERED: CALCIUM CHLORIDE 10% 1,000 MG in SODIUM CHLORIDE 0.9% 50 ML IV STA (13:53)
[2018-10-05] MEDS ORDERED: SODIUM CHLORIDE 0.9% 1000ML 500 ML IV ONE (14:11)
[2018-10-05] MEDS ORDERED: GABAPENTIN 600 MG TAB PO SCH (18:00)
--- NOTE | 2018-10-05 18:38 | Critical Care Consultation ---
Date of Consultation October 05, 2018 Assessment & Plan (1) Acute encephalopathy: Reason Critically Ill: 48-year-old female with frequent exacerbations of chronic alcoholism PLAN: Neuro: Acute encephalopathy: Alcohol withdrawal versus hepatic versus metabolic: Likely multifactorial Acute alcohol withdrawal -Phenobarbital ideal body weight 75 -180 mg IV x 1, then 135 iv x 2 loading -Phenobarbital maintenance doses -Low-dose Precedex infusion to augment withdrawal symptoms Pain: -Patient is unable to specify pain complaint -With possible seizure history/seizure disorder I am discontinuing Ultram as this lowers the seizure threshold Reported seizure history and medical record -Continue home topiramate Resp: Tobacco abuse Continuous end-tidal CO2 monitoring given need for IV phenobarbital CV: Tachycardia -Likely aspect of alcohol withdrawal -10 mg propranolol thrice daily -Cirrhotic with ascites would benefit from nonspecific beta- blockade -No history of varices at this time however if she is at high risk Fluids/Renal: IV fluids -Normosol at 80 mL's per hour ID: Empiric treatment for SBP -Patient not exhibiting signs of guarding or rebound -Continuing Rocephin daily at this time -Patient thrombocytopenic which is a relative contraindication for paracentesis -Patient also does not identify surrogate medical decision maker and she clearly lacks capacity at this time -Would proceed with two-physician consent at this time -Patient reports parents are and 2 living adult children however she does not want them involved in medical decision making Pen-Vee listed in home medications -Unclear what the treatment indication is -Discontinuing GI/Nutrition: Alcoholic cirrhosis -Reported history of hepatitis C, I am not finding confirmatory studies in the medical record -Viral hepatitis serology testing in the morning Heme: Pancytopenia -Likely bone marrow suppression from alcohol Elevated INR -Secondary to hepatic insufficiency -Twice vitamin K supplementation DVT prophylaxis: SCDs -Chemical prophylaxis contraindicated secondary to profound thrombocytopenia Endocrine: ICU hyperglycemia protocol Vascular access: Peripheral IVs Code Status: Full code I have personally spent 60 minutes of critical care time in the direct manageme nt of this patient. This is a life/limb threatening event. This includes time spent evaluating patient, direct bedside care, chart review, placing orders, interpretation of diagnostic studies, discussion with consultants, patient, and/or family members regarding treatment decisions, as well as other required patient management activities. This time is exclusive of all separately billable procedures, and teaching time and separate from and in addition to any other critical care service time. Present on Admission?: Yes (2) Polysubstance abuse: Present on Admission?: Yes (3) Pancytopenia: Present on Admission?: Yes (4) Alcoholism: Present on Admission?: Yes (5) Cirrhosis, alcoholic: Present on Admission?: Yes (6) Viral hepatitis C: (7) Alcohol dependence: Present on Admission?: Yes (8) Alcohol withdrawal delirium: Present on Admission?: No (9) Bone marrow suppression: Present on Admission?: Yes (10) Pancytopenia: Present on Admission?: Yes (11) Hepatic insufficiency: Present on Admission?: Yes (12) Transaminitis: Present on Admission?: Yes (13) Liver disease: Present on Admission?: Yes (14) Total bilirubin, elevated: Present on Admission?: Yes (15) Hyperammonemia: Present on Admission?: Yes (16) Admitted to intensive care unit: Present on Admission?: No (17) Acute alcohol intoxication with alcoholism with delirium: Present on Admission?: No (18) Acute alcohol intoxication in patient with alcoholism with blood alcohol level over 0.3: Present on Admission?: Yes History of Present Illness Attending Physician: Meka Garcia MD Patient is a 48-year-old female with a significant past medical history of long- standing alcohol abuse and sequela light of chronic alcohol dependence: Pancytopenia, cirrhosis, gastritis, pancreatitis. She presented to [facility] emergency department with reported history of seizures. Patient also has complaints of bloody emesis. She has been receiving symptom triggered benzodiazepines and has had worsening mental status and more significant vital sign abnormalities, I have been asked to evaluate and treat the patient. Allergies Allergy/AdvReac Type Severity Reaction Status Date / Time acetaminophen [From Tylenol] AdvReac Intermediate HX Verified 10/04/18 19:22 CIRRHOSIS NSAIDS (Non-Steroidal AdvReac Intermediate HX Verified 10/04/18 19:22 Anti-Inflamma CIRRHOSIS phenytoin AdvReac Intermediate LOSS OF Verified 10/04/18 19:22 EQUILIBRIUM Home Medications Home Medications Medication Instructions Recorded Confirmed Type pantoprazole [Protonix] 40 mg PO DAILY 28 Days #28 tab 09/16/18 10/04/18 Rx Potassium Tab 1 tab PO DAILY 10/04/18 10/04/18 History folic acid 1 mg PO DAILY 10/04/18 10/04/18 History magnesium oxide 400 mg PO DAILY 10/04/18 10/04/18 History penicillin V potassium 500 mg PO QID 10/04/18 10/04/18 History ranitidine HCl 150 mg PO HS 10/04/18 10/04/18 History topiramate [Topamax] 100 mg PO BID 10/04/18 10/04/18 History Patient History Medical History Hypertension (Acute) Hypokalemia Seizures Pancreatitis (Chronic) Schizoaffective disorder (Chronic) Arthritis Depression Liver disease Thyroid disease Gastritis Liver cancer (Chronic) Alcoholism Acute recurrent pancreatitis (Acute Unknown) Viral hepatitis C (Chronic Unknown) Chronic pancreatitis (Chronic Unknown) Cirrhosis, alcoholic (Chronic) Chronic renal failure, stage 3 (moderate) (Chronic) Polysubstance abuse (Acute) Depression with suicidal ideation (Acute) TIA (transient ischemic attack) (Acute) Pancytopenia (Acute) Cholecystectomy planned Cholecystectomy planned Hyponatremia Surgical History History of appendectomy Family History Mother Multiple sclerosis Father , age 52 Acute coronary occlusion without mycocardial infarction Social History Preferred Language: Slovak Communication Ability: Impaired Visual Impairment: No 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 Beliefs That Will Affect Care: None marital status: Current Living Situation: Significant Other current occupational status: unemployed and disabled Other Information That Helps Us Care for You: No Feels Safe at Home: Yes Safety Concerns: Feels Safe At This Time Smoking Status: Current every day smoker Tobacco Type: cigarettes Cigarettes Per Day: 20 Do You Dip or Chew Tobacco: No Second Hand Exposure: No Tobacco Cessation Education Requested by Patient: No Hx Alcohol Use: Yes Alcohol type: beer Hx Substance Use: Yes (beer and cigarettes) substance use type: does not use Last Used Substance: Just Prior to Arrival Review of Systems Review of Systems: Unobtainable due to reduced consciousness Physical Exam Physical Exam: General: Overweight female appears her stated age in moderate distress I have reviewed the recorded vital signs Neurological: RASS score: +1, Moves all 4 extremities, Psychological: Glascow Coma Scale: Eyes: 4, Verbal 3, Motor 5, Total 12 Eyes: Pupils are equal, round and reactive to light, anicteric sclera. Symmetrical lids. HENT: Oropharynx is clear, moist mucous membranes. Neck: Supple. Symmetric. trachea midline. No thyromegaly. Cardiovascular: Normal peripheral perfusion. Distal pulses and capillary refill intact. No JVD. Tachycardia Respiratory: No accessory muscle use. Breath sounds are equal. Tachypnea Gastrointestinal: Soft. Non-distended. Lymphatic: No cervical lymphadenopathy. Musculoskeletal: No deformity. No clubbing nor cyanosis. Results & Data Vital Signs (Past 12 Hours) Vital Signs Temp Pulse Pulse Resp BP Pulse Ox 10/05/18 15:23 36.8 C 147 H 16 100/65 93 10/05/18 11:33 36.7 C 147 H 22 106/72 91 10/05/18 08:00 140 H 10/05/18 07:57 37.1 C 145 H 20 100/70 93 Laboratory Results 10/05/18 10/05/18 10/05/18 Range/Units Unknown Unknown 22:13 WBC (4.8-10.8) K/uL RBC (4.2-5.4) M/uL Hgb (12.0-16.0) g/dL Hct (37-47) % MCV (80-100) fL MCH (25-34) pg MCHC (32-36) g/dL RDW Std Deviation (36.4-46.3) fL RDW Coeff of Michelle (11.5-14.5) % Plt Count (130-400) K/uL MPV (7.4-10.4) fL Immature Gran % (Auto) % Neut % (Auto) % Lymph % (Auto) % Coffey % (Auto) % Eos % (Auto) % Baso % (Auto) % Immature Gran # (Auto) (0.00-0.02) K/uL Neut # (Auto) (1.4-6.5) K/uL Lymph # (Auto) (1.2-3.4) K/uL Coffey # (Auto) (0.11-0.59) K/uL Eos # (Auto) (0-0.5) K/uL Baso # (Auto) (0-0.2) K/uL Absolute Nucleated RBC (0-0) K/uL Nucleated RBC % (auto) % Platelet Estimate (Normal) Giant Platelets RBC Morphology Anisocytosis Target Cells PT (9.0-12.0) Seconds INR (0.9-1.1) Sodium (136-145) mmol/L Potassium (3.5-5.1) mmol/L Chloride (98-107) mmol/L Carbon Dioxide (21-32) mmol/L Anion Gap (3-11) BUN (7-18) mg/dl Creatinine (0.6-1.2) mg/dl Est Cr Clr Drug Dosing ml/min Est GFR ( Amer) Est GFR (Non-Af Amer) BUN/Creatinine Ratio (10-20) Glucose (70-99) mg/dl Calcium (8.5-10.1) mg/dl Ionized Calcium (1.12-1.32) mmol/L Magnesium (1.8-2.4) mg/dl Total Bilirubin (0.2-1) mg/dl Direct Bilirubin (0-0.2) mg/dl AST (15-37) U/L ALT (12-78) U/L Alkaline Phosphatase (45-117) U/L Ammonia (11-32) umol/L Troponin I (0-0.045) ng/ml Total Protein (6.4-8.2) gm/dl Albumin (3.4-5.0) gm/dl Globulin (2.5-4.0) gm/dl Albumin/Globulin Ratio (0.9-2) Vitamin B12 (211-911) pg/ml HCG, Qual (Negative) Stool Occult Bld Scrn (Negative) Urine Opiates Screen Neg (Neg) Ur Methadone, Qual Neg (Neg) Acetaminophen (10-30) ug/ml Urine Barbiturates Neg (Neg) Ur Phencyclidine (PCP) Neg (Neg) U Amphetamin/Meth Scrn Neg (Neg) MDMA (Ecstasy) Screen Neg (Neg) U OH-Alprazolam Confrm Pending U Benzodiazepines Scrn Pos H (Neg) 7-Amino Clonazepam Pending Ur Nordiazepam Confirm Pending U OH-ethylflurazepam Pending U Lorazepam Cnf GC/MS Pending U Oxazepam Confm GC/MS Pending Ur Temazepam Confirm Pending U OH-Triazolam Confirm Pending U OH-Midazolam Confirm Pending Ur Cocaine Metabolite Neg (Neg) U Marijuana (THC) Screen Neg (Neg) Ethyl Alcohol mg/dL (0-3) mg/dl Miscellaneous Test Pending Blood Type Antibody Screen 10/05/18 10/05/18 10/05/18 Range/Units 11:10 10:03 06:24 WBC 5.80 (4.8-10.8) K/uL RBC 2.21 L (4.2-5.4) M/uL Hgb 7.3 L (12.0-16.0) g/dL Hct 21.4 L (37-47) % MCV 96.8 (80-100) fL MCH 33.0 (25-34) pg MCHC 34.1 (32-36) g/dL RDW Std Deviation 66.0 H (36.4-46.3) fL RDW Coeff of Michelle 18.8 H (11.5-14.5) % Plt Count 38 L (130-400) K/uL MPV 11.2 H (7.4-10.4) fL Immature Gran % (Auto) 0.5 % Neut % (Auto) 66.3 % Lymph % (Auto) 18.4 % Coffey % (Auto) 13.6 % Eos % (Auto) 0.3 % Baso % (Auto) 0.9 % Immature Gran # (Auto) 0.03 H (0.00-0.02) K/uL Neut # (Auto) 3.84 (1.4-6.5) K/uL Lymph # (Auto) 1.07 L (1.2-3.4) K/uL Coffey # (Auto) 0.79 H (0.11-0.59) K/uL Eos # (Auto) 0.02 (0-0.5) K/uL Baso # (Auto) 0.05 (0-0.2) K/uL Absolute Nucleated RBC (0-0) K/uL Nucleated RBC % (auto) % Platelet Estimate Decreased L (Normal) Giant Platelets 1+ RBC Morphology Anisocytosis Present Target Cells 1+ PT (9.0-12.0) Seconds INR (0.9-1.1) Sodium 136 (136-145) mmol/L Potassium 3.6 (3.5-5.1) mmol/L Chloride 104 (98-107) mmol/L Carbon Dioxide 23 (21-32) mmol/L Anion Gap 9.0 (3-11) BUN 7 (7-18) mg/dl Creatinine 0.85 (0.6-1.2) mg/dl Est Cr Clr Drug Dosing 88.5 ml/min Est GFR ( Amer) 92.6 Est GFR (Non-Af Amer) 79.9 BUN/Creatinine Ratio 8.0 L (10-20) Glucose 85 (70-99) mg/dl Calcium 7.5 L (8.5-10.1) mg/dl Ionized Calcium (1.12-1.32) mmol/L Magnesium (1.8-2.4) mg/dl Total Bilirubin 6.3 H D (0.2-1) mg/dl Direct Bilirubin 4.6 H (0-0.2) mg/dl AST 286 H (15-37) U/L ALT 92 H (12-78) U/L Alkaline Phosphatase 207 H (45-117) U/L Ammonia (11-32) umol/L Troponin I (0-0.045) ng/ml Total Protein 7.8 (6.4-8.2) gm/dl Albumin 2.3 L (3.4-5.0) gm/dl Globulin (2.5-4.0) gm/dl Albumin/Globulin Ratio (0.9-2) Vitamin B12 (211-911) pg/ml HCG, Qual (Negative) Stool Occult Bld Scrn Negative (Negative) Urine Opiates Screen (Neg) Ur Methadone, Qual (Neg) Acetaminophen (10-30) ug/ml Urine Barbiturates (Neg) Ur Phencyclidine (PCP) (Neg) U Amphetamin/Meth Scrn (Neg) MDMA (Ecstasy) Screen (Neg) U OH-Alprazolam Confrm U Benzodiazepines Scrn (Neg) 7-Amino Clonazepam Ur Nordiazepam Confirm U OH-ethylflurazepam U Lorazepam Cnf GC/MS U Oxazepam Confm GC/MS Ur Temazepam Confirm U OH-Triazolam Confirm U OH-Midazolam Confirm Ur Cocaine Metabolite (Neg) U Marijuana (THC) Screen (Neg) Ethyl Alcohol mg/dL (0-3) mg/dl Miscellaneous Test Blood Type Antibody Screen 10/05/18 10/05/18 10/05/18 Range/Units 06:24 06:24 06:24 WBC 4.16 L (4.8-10.8) K/uL RBC 2.39 L (4.2-5.4) M/uL Hgb 8.1 L (12.0-16.0) g/dL Hct 23.4 L (37-47) % MCV 97.9 (80-100) fL MCH 33.9 (25-34) pg MCHC 34.6 (32-36) g/dL RDW Std Deviation 66.5 H (36.4-46.3) fL RDW Coeff of Michelle 18.5 H (11.5-14.5) % Plt Count 36 L (130-400) K/uL MPV 12.0 H (7.4-10.4) fL Immature Gran % (Auto) 0.0 % Neut % (Auto) 42.8 % Lymph % (Auto) 46.4 % Coffey % (Auto) 9.4 % Eos % (Auto) 0.7 % Baso % (Auto) 0.7 % Immature Gran # (Auto) 0.00 (0.00-0.02) K/uL Neut # (Auto) 1.78 (1.4-6.5) K/uL Lymph # (Auto) 1.93 (1.2-3.4) K/uL Coffey # (Auto) 0.39 (0.11-0.59) K/uL Eos # (Auto) 0.03 (0-0.5) K/uL Baso # (Auto) 0.03 (0-0.2) K/uL Absolute Nucleated RBC (0-0) K/uL Nucleated RBC % (auto) % Platelet Estimate (Normal) Giant Platelets RBC Morphology Anisocytosis Target Cells PT 19.4 H (9.0-12.0) Seconds INR 2.0 H (0.9-1.1) Sodium (136-145) mmol/L Potassium (3.5-5.1) mmol/L Chloride (98-107) mmol/L Carbon Dioxide (21-32) mmol/L Anion Gap (3-11) BUN (7-18) mg/dl Creatinine (0.6-1.2) mg/dl Est Cr Clr Drug Dosing ml/min Est GFR ( Amer) Est GFR (Non-Af Amer) BUN/Creatinine Ratio (10-20) Glucose (70-99) mg/dl Calcium (8.5-10.1) mg/dl Ionized Calcium 0.99 L (1.12-1.32) mmol/L Magnesium (1.8-2.4) mg/dl Total Bilirubin (0.2-1) mg/dl Direct Bilirubin (0-0.2) mg/dl AST (15-37) U/L ALT (12-78) U/L Alkaline Phosphatase (45-117) U/L Ammonia (11-32) umol/L Troponin I (0-0.045) ng/ml Total Protein (6.4-8.2) gm/dl Albumin (3.4-5.0) gm/dl Globulin (2.5-4.0) gm/dl Albumin/Globulin Ratio (0.9-2) Vitamin B12 (211-911) pg/ml HCG, Qual (Negative) Stool Occult Bld Scrn (Negative) Urine Opiates Screen (Neg) Ur Methadone, Qual (Neg) Acetaminophen (10-30) ug/ml Urine Barbiturates (Neg) Ur Phencyclidine (PCP) (Neg) U Amphetamin/Meth Scrn (Neg) MDMA (Ecstasy) Screen (Neg) U OH-Alprazolam Confrm U Benzodiazepines Scrn (Neg) 7-Amino Clonazepam Ur Nordiazepam Confirm U OH-ethylflurazepam U Lorazepam Cnf GC/MS U Oxazepam Confm GC/MS Ur Temazepam Confirm U OH-Triazolam Confirm U OH-Midazolam Confirm Ur Cocaine Metabolite (Neg) U Marijuana (THC) Screen (Neg) Ethyl Alcohol mg/dL (0-3) mg/dl Miscellaneous Test Blood Type Antibody Screen 10/05/18 10/04/18 10/04/18 Range/Units 01:55 22:13 22:13 WBC 4.78 L (4.8-10.8) K/uL RBC 2.18 L (4.2-5.4) M/uL Hgb 7.1 L (12.0-16.0) g/dL Hct 21.0 L (37-47) % MCV 96.3 (80-100) fL MCH 32.6 (25-34) pg MCHC 33.8 (32-36) g/dL RDW Std Deviation 65.1 H (36.4-46.3) fL RDW Coeff of Michelle 18.4 H (11.5-14.5) % Plt Count 31 L (130-400) K/uL MPV 10.0 (7.4-10.4) fL Immature Gran % (Auto) 0.8 % Neut % (Auto) 49.3 % Lymph % (Auto) 39.7 % Coffey % (Auto) 9.2 % Eos % (Auto) 0.4 % Baso % (Auto) 0.6 % Immature Gran # (Auto) 0.04 H (0.00-0.02) K/uL Neut # (Auto) 2.35 (1.4-6.5) K/uL Lymph # (Auto) 1.90 (1.2-3.4) K/uL Coffey # (Auto) 0.44 (0.11-0.59) K/uL Eos # (Auto) 0.02 (0-0.5) K/uL Baso # (Auto) 0.03 (0-0.2) K/uL Absolute Nucleated RBC 0.02 H (0-0) K/uL Nucleated RBC % (auto) 0.5 % Platelet Estimate (Normal) Giant Platelets RBC Morphology Unremarkable Anisocytosis Target Cells PT (9.0-12.0) Seconds INR (0.9-1.1) Sodium (136-145) mmol/L Potassium (3.5-5.1) mmol/L Chloride (98-107) mmol/L Carbon Dioxide (21-32) mmol/L Anion Gap (3-11) BUN (7-18) mg/dl Creatinine (0.6-1.2) mg/dl Est Cr Clr Drug Dosing ml/min Est GFR ( Amer) Est GFR (Non-Af Amer) BUN/Creatinine Ratio (10-20) Glucose (70-99) mg/dl Calcium (8.5-10.1) mg/dl Ionized Calcium 0.90 L (1.12-1.32) mmol/L Magnesium (1.8-2.4) mg/dl Total Bilirubin (0.2-1) mg/dl Direct Bilirubin (0-0.2) mg/dl AST (15-37) U/L ALT (12-78) U/L Alkaline Phosphatase (45-117) U/L Ammonia (11-32) umol/L Troponin I (0-0.045) ng/ml Total Protein (6.4-8.2) gm/dl Albumin (3.4-5.0) gm/dl Globulin (2.5-4.0) gm/dl Albumin/Globulin Ratio (0.9-2) Vitamin B12 (211-911) pg/ml HCG, Qual (Negative) Stool Occult Bld Scrn (Negative) Urine Opiates Screen (Neg) Ur Methadone, Qual (Neg) Acetaminophen (10-30) ug/ml Urine Barbiturates (Neg) Ur Phencyclidine (PCP) (Neg) U Amphetamin/Meth Scrn (Neg) MDMA (Ecstasy) Screen (Neg) U OH-Alprazolam Confrm U Benzodiazepines Scrn (Neg) 7-Amino Clonazepam Ur Nordiazepam Confirm U OH-ethylflurazepam U Lorazepam Cnf GC/MS U Oxazepam Confm GC/MS Ur Temazepam Confirm U OH-Triazolam Confirm U OH-Midazolam Confirm Ur Cocaine Metabolite (Neg) U Marijuana (THC) Screen (Neg) Ethyl Alcohol mg/dL (0-3) mg/dl Miscellaneous Test Blood Type Antibody Screen 10/04/18 10/04/18 10/04/18 Range/Units 22:13 19:01 19:01 WBC (4.8-10.8) K/uL RBC (4.2-5.4) M/uL Hgb (12.0-16.0) g/dL Hct (37-47) % MCV (80-100) fL MCH (25-34) pg MCHC (32-36) g/dL RDW Std Deviation (36.4-46.3) fL RDW Coeff of Michelle (11.5-14.5) % Plt Count (130-400) K/uL MPV (7.4-10.4) fL Immature Gran % (Auto) % Neut % (Auto) % Lymph % (Auto) % Coffey % (Auto) % Eos % (Auto) % Baso % (Auto) % Immature Gran # (Auto) (0.00-0.02) K/uL Neut # (Auto) (1.4-6.5) K/uL Lymph # (Auto) (1.2-3.4) K/uL Coffey # (Auto) (0.11-0.59) K/uL Eos # (Auto) (0-0.5) K/uL Baso # (Auto) (0-0.2) K/uL Absolute Nucleated RBC (0-0) K/uL Nucleated RBC % (auto) % Platelet Estimate (Normal) Giant Platelets RBC Morphology Anisocytosis Target Cells PT (9.0-12.0) Seconds INR (0.9-1.1) Sodium (136-145) mmol/L Potassium (3.5-5.1) mmol/L Chloride (98-107) mmol/L Carbon Dioxide (21-32) mmol/L Anion Gap (3-11) BUN (7-18) mg/dl Creatinine (0.6-1.2) mg/dl Est Cr Clr Drug Dosing ml/min Est GFR ( Amer) Est GFR (Non-Af Amer) BUN/Creatinine Ratio (10-20) Glucose (70-99) mg/dl Calcium (8.5-10.1) mg/dl Ionized Calcium (1.12-1.32) mmol/L Magnesium (1.8-2.4) mg/dl Total Bilirubin (0.2-1) mg/dl Direct Bilirubin (0-0.2) mg/dl AST (15-37) U/L ALT (12-78) U/L Alkaline Phosphatase (45-117) U/L Ammonia (11-32) umol/L Troponin I (0-0.045) ng/ml Total Protein (6.4-8.2) gm/dl Albumin (3.4-5.0) gm/dl Globulin (2.5-4.0) gm/dl Albumin/Globulin Ratio (0.9-2) Vitamin B12 1469 H (211-911) pg/ml HCG, Qual (Negative) Stool Occult Bld Scrn (Negative) Urine Opiates Screen (Neg) Ur Methadone, Qual (Neg) Acetaminophen (10-30) ug/ml Urine Barbiturates (Neg) Ur Phencyclidine (PCP) (Neg) U Amphetamin/Meth Scrn (Neg) MDMA (Ecstasy) Screen (Neg) U OH-Alprazolam Confrm U Benzodiazepines Scrn (Neg) 7-Amino Clonazepam Ur Nordiazepam Confirm U OH-ethylflurazepam U Lorazepam Cnf GC/MS U Oxazepam Confm GC/MS Ur Temazepam Confirm U OH-Triazolam Confirm U OH-Midazolam Confirm Ur Cocaine Metabolite (Neg) U Marijuana (THC) Screen (Neg) Ethyl Alcohol mg/dL 324.0 H (0-3) mg/dl Miscellaneous Test Blood Type A Positive Antibody Screen NEGATIVE 10/04/18 10/04/18 10/04/18 Range/Units 19:01 18:17 18:17 WBC (4.8-10.8) K/uL RBC (4.2-5.4) M/uL Hgb (12.0-16.0) g/dL Hct (37-47) % MCV (80-100) fL MCH (25-34) pg MCHC (32-36) g/dL RDW Std Deviation (36.4-46.3) fL RDW Coeff of Michelle (11.5-14.5) % Plt Count (130-400) K/uL MPV (7.4-10.4) fL Immature Gran % (Auto) % Neut % (Auto) % Lymph % (Auto) % Coffey % (Auto) % Eos % (Auto) % Baso % (Auto) % Immature Gran # (Auto) (0.00-0.02) K/uL Neut # (Auto) (1.4-6.5) K/uL Lymph # (Auto) (1.2-3.4) K/uL Coffey # (Auto) (0.11-0.59) K/uL Eos # (Auto) (0-0.5) K/uL Baso # (Auto) (0-0.2) K/uL Absolute Nucleated RBC (0-0) K/uL Nucleated RBC % (auto) % Platelet Estimate (Normal) Giant Platelets RBC Morphology Anisocytosis Target Cells PT 20.7 H (9.0-12.0) Seconds INR 2.1 H (0.9-1.1) Sodium (136-145) mmol/L Potassium (3.5-5.1) mmol/L Chloride (98-107) mmol/L Carbon Dioxide (21-32) mmol/L Anion Gap (3-11) BUN (7-18) mg/dl Creatinine (0.6-1.2) mg/dl Est Cr Clr Drug Dosing ml/min Est GFR ( Amer) Est GFR (Non-Af Amer) BUN/Creatinine Ratio (10-20) Glucose (70-99) mg/dl Calcium (8.5-10.1) mg/dl Ionized Calcium (1.12-1.32) mmol/L Magnesium (1.8-2.4) mg/dl Total Bilirubin (0.2-1) mg/dl Direct Bilirubin (0-0.2) mg/dl AST (15-37) U/L ALT (12-78) U/L Alkaline Phosphatase (45-117) U/L Ammonia 42.0 H (11-32) umol/L Troponin I (0-0.045) ng/ml Total Protein (6.4-8.2) gm/dl Albumin (3.4-5.0) gm/dl Globulin (2.5-4.0) gm/dl Albumin/Globulin Ratio (0.9-2) Vitamin B12 (211-911) pg/ml HCG, Qual Negative (Negative) Stool Occult Bld Scrn (Negative) Urine Opiates Screen (Neg) Ur Methadone, Qual (Neg) Acetaminophen (10-30) ug/ml Urine Barbiturates (Neg) Ur Phencyclidine (PCP) (Neg) U Amphetamin/Meth Scrn (Neg) MDMA (Ecstasy) Screen (Neg) U OH-Alprazolam Confrm U Benzodiazepines Scrn (Neg) 7-Amino Clonazepam Ur Nordiazepam Confirm U OH-ethylflurazepam U Lorazepam Cnf GC/MS U Oxazepam Confm GC/MS Ur Temazepam Confirm U OH-Triazolam Confirm U OH-Midazolam Confirm Ur Cocaine Metabolite (Neg) U Marijuana (THC) Screen (Neg) Ethyl Alcohol mg/dL (0-3) mg/dl Miscellaneous Test Blood Type Antibody Screen 10/04/18 10/04/18 Range/Units 18:17 18:17 WBC 4.20 L (4.8-10.8) K/uL RBC 2.52 L (4.2-5.4) M/uL Hgb 8.5 L (12.0-16.0) g/dL Hct 24.4 L (37-47) % MCV 96.8 (80-100) fL MCH 33.7 (25-34) pg MCHC 34.8 (32-36) g/dL RDW Std Deviation 64.0 H (36.4-46.3) fL RDW Coeff of Michelle 18.2 H (11.5-14.5) % Plt Count 41 L (130-400) K/uL MPV 10.8 H (7.4-10.4) fL Immature Gran % (Auto) 0.0 % Neut % (Auto) 59.3 % Lymph % (Auto) 32.6 % Coffey % (Auto) 7.4 % Eos % (Auto) 0.2 % Baso % (Auto) 0.5 % Immature Gran # (Auto) 0.00 (0.00-0.02) K/uL Neut # (Auto) 2.49 (1.4-6.5) K/uL Lymph # (Auto) 1.37 (1.2-3.4) K/uL Coffey # (Auto) 0.31 (0.11-0.59) K/uL Eos # (Auto) 0.01 (0-0.5) K/uL Baso # (Auto) 0.02 (0-0.2) K/uL Absolute Nucleated RBC (0-0) K/uL Nucleated RBC % (auto) % Platelet Estimate Decreased L (Normal) Giant Platelets RBC Morphology Anisocytosis Target Cells 1+ PT (9.0-12.0) Seconds INR (0.9-1.1) Sodium 137 (136-145) mmol/L Potassium 3.2 L (3.5-5.1) mmol/L Chloride 103 (98-107) mmol/L Carbon Dioxide 21 (21-32) mmol/L Anion Gap 13.0 H (3-11) BUN 6 L (7-18) mg/dl Creatinine 1.09 (0.6-1.2) mg/dl Est Cr Clr Drug Dosing 69.0 ml/min Est GFR ( Amer) 68.5 Est GFR (Non-Af Amer) 59.1 BUN/Creatinine Ratio 5.8 L (10-20) Glucose 145 H (70-99) mg/dl Calcium 7.0 L (8.5-10.1) mg/dl Ionized Calcium (1.12-1.32) mmol/L Magnesium 1.7 L (1.8-2.4) mg/dl Total Bilirubin 4.1 H (0.2-1) mg/dl Direct Bilirubin (0-0.2) mg/dl AST 238 H (15-37) U/L ALT 77 (12-78) U/L Alkaline Phosphatase 199 H (45-117) U/L Ammonia (11-32) umol/L Troponin I < 0.015 (0-0.045) ng/ml Total Protein 7.4 (6.4-8.2) gm/dl Albumin 2.2 L (3.4-5.0) gm/dl Globulin 5.2 H (2.5-4.0) gm/dl Albumin/Globulin Ratio 0.4 L (0.9-2) Vitamin B12 (211-911) pg/ml HCG, Qual (Negative) Stool Occult Bld Scrn (Negative) Urine Opiates Screen (Neg) Ur Methadone, Qual (Neg) Acetaminophen (10-30) ug/ml Urine Barbiturates (Neg) Ur Phencyclidine (PCP) (Neg) U Amphetamin/Meth Scrn (Neg) MDMA (Ecstasy) Screen (Neg) U OH-Alprazolam Confrm U Benzodiazepines Scrn (Neg) 7-Amino Clonazepam Ur Nordiazepam Confirm U OH-ethylflurazepam U Lorazepam Cnf GC/MS U Oxazepam Confm GC/MS Ur Temazepam Confirm U OH-Triazolam Confirm U OH-Midazolam Confirm Ur Cocaine Metabolite (Neg) U Marijuana (THC) Screen (Neg) Ethyl Alcohol mg/dL (0-3) mg/dl Miscellaneous Test Blood Type Antibody Screen Diagnostic Findings I reviewed the EGD report from 03/03/2018: No varices at that time. I reviewed the radiology report from October 04, 2018 this was compared with a radiology report from 03/02/2018. The February CT revealed interval development of small amount of ascites, since that time the patient has had increasing amount of ascites present. Of note abdominal ultrasound report from May 25, 2018 did not demonstrate ascites. Critical Care Time Critical Care Time: Yes Total Critical Care Time: 60 (1) Cirrhosis, alcoholic Ascites presence: with ascites Qualified Code(s): K70.31 - Alcoholic cirrhosis of liver with ascites (2) Viral hepatitis C Viral hepatitis chronicity: unspecified Hepatic coma status: without hepatic coma Qualified Code(s): B19.20 - Unspecified viral hepatitis C without hepatic coma (3) Alcohol dependence Substance use status: with intoxication Complication of substance-induced condition: with delirium Qualified Code(s): F10.221 - Alcohol dependence with intoxication delirium
[2018-10-05] MEDS ORDERED: PHENobarbital sodium 130 MG/ML VIAL IV PRN (18:47)
[2018-10-05] MEDS ORDERED: PHENobarbital sodium 65 MG/ML VIAL IV ONE (19:00)
[2018-10-05] MEDS ORDERED: DEXMEDETOMIDINE HCL 200 MCG in SODIUM CHLORIDE 0.9% 48 ML IV SCH (19:45)
[2018-10-05] MEDS ORDERED: DEXTROSE 50% 50 ML SYRINGE IV ONE (19:48)
[2018-10-05 20:36] LABS: Hematocrit (blood only) 23.2 % (37-47); Hemoglobin 7.3 g/dL (12.0-16.0); Mean Corpuscular Hgb Conc 31.5 g/dL (32-36); Mean Corpuscular Volume 107.4 fL (80-100); Mean Platelet Volume 11.6 fL (7.4-10.4); Nucleated RBC # (auto) 0.07 K/uL (0-0); Nucleated RBC % (auto) 1.1 %; Platelet Count 55 K/uL (130-400); RDW Coefficient of Variation 19.8 % (11.5-14.5); RDW Standard Deviation 77.2 fL (36.4-46.3); Red Blood Count 2.16 M/uL (4.2-5.4); White Blood Count 6.38 K/uL (4.8-10.8)
[2018-10-05] MEDS: NORMOSOL-R 1,000 ML IV SCH (20:54)
[2018-10-05] MEDS: PHYTONADIONE 5 MG TAB PO SCH (20:54)
[2018-10-05] MEDS: PROPRANOLOL HCL 10 MG TAB PO SCH (20:55)
--- NOTE | 2018-10-05 20:57 | XRay Report ---
KUB HISTORY: Status post placement of feeding tube core safe placement COMPARISON: CT abdomen and pelvis 06/28/2018 FINDINGS: A feeding tube has been placed, distal tip terminating within the abdominal left upper quad rant within the expected location of the mid gastric body. Dilated loops of small bowel within the ce ntral abdomen measuring up to 3.5 cm. No pneumatosis or pneumoperitoneum. Mild bibasilar opacities ar e noted. No urolith. Degenerative changes are seen about the spine. IMPRESSION: 1. Distal tip of feeding tube terminates in the expected location of the mid gastric body. 2. Mildly dilated loops of small bowel suggest ileus or obstruction. Correlate clinically. Electronically signed by: Sam Etienne M.D. 10/05/2018 8:56 PM
[2018-10-05 21:11] LABS: Basophils # (auto) 0.01 K/uL (0-0.2); Basophils % (auto) 0.2 %; Echinocytes 2+; Eosinophils # (auto) 0.02 K/uL (0-0.5); Eosinophils % (auto) 0.3 %; Immature Granulocytes # (auto) 0.04 K/uL (0.00-0.02); Immature Granulocytes % (auto) 0.6 %; Lymphocytes # (auto) 0.39 K/uL (1.2-3.4); Lymphocytes % (auto) 6.1 %; Monocytes # (auto) 0.87 K/uL (0.11-0.59); Monocytes % (auto) 13.6 %; Neutrophils # (auto) 5.05 K/uL (1.4-6.5); Neutrophils % (auto) 79.2 %; Polychromasia 1+
[2018-10-05] MEDS ORDERED: PHENobarbital sodium 65 MG/ML VIAL IV SCH (22:00)
[2018-10-05] MEDS: PHENOBARBITAL SODIUM IV SCH (22:47)
[2018-10-06] MEDS: cefTRIAXone SODIUM 2,000 MG in DEXTROSE 5% 50 ML IV SCH ×2 (00:36→23:12)
[2018-10-06] MEDS: ALBUMIN 25% 50 ML IV SCH ×2 (01:29→02:10)
[2018-10-06] MEDS ORDERED: SODIUM CHLORIDE 0.9% 1000ML 1,000 ML IV ONE (01:58)
[2018-10-06 02:39] LABS: Hematocrit (blood only) 18.1 % (37-47); Hemoglobin 5.4 g/dL (12.0-16.0); Mean Corpuscular Hgb Conc 29.8 g/dL (32-36); Mean Platelet Volume 12.3 fL (7.4-10.4); Nucleated RBC # (auto) 0.08 K/uL (0-0); Nucleated RBC % (auto) 1.2 %; Platelet Count 37 K/uL (130-400); RDW Coefficient of Variation 19.9 % (11.5-14.5); RDW Standard Deviation 77.7 fL (36.4-46.3); Red Blood Count 1.66 M/uL (4.2-5.4); White Blood Count 6.23 K/uL (4.8-10.8)
[2018-10-06] MEDS: PHENOBARBITAL SODIUM IV SCH (02:49)
[2018-10-06] MEDS ORDERED: SODIUM CHLORIDE 0.9% 250 ML IV PRN ×6 (02:59→18:37)
[2018-10-06 03:08] LABS: Echinocytes 2+; Eosinophils # (auto) 0.01 K/uL (0-0.5); Eosinophils % (auto) 0.2 %; Immature Granulocytes # (auto) 0.02 K/uL (0.00-0.02); Immature Granulocytes % (auto) 0.3 %; Lymphocytes # (auto) 0.81 K/uL (1.2-3.4); Monocytes # (auto) 0.76 K/uL (0.11-0.59); Monocytes % (auto) 12.2 %; Neutrophils # (auto) 4.63 K/uL (1.4-6.5); Neutrophils % (auto) 74.3 %; Polychromasia 1+
[2018-10-06 03:19] LABS: Hematocrit (blood only) 20.9 % (37-47); Hemoglobin 6.3 g/dL (12.0-16.0)
[2018-10-06] MEDS: NOREPINEPHRINE BIT INJ 8 MG in DEXTROSE 5% 500 ML IV SCH ×3 (03:51→23:11)
[2018-10-06 03:58] LABS: Toxic Vacuolation 1+
[2018-10-06 04:00] LABS: Giant Platelets 1+
[2018-10-06 04:03] LABS: Giant Platelets 1+; Toxic Vacuolation 2+
[2018-10-06] MEDS ORDERED: DEXTROSE 50% 50 ML SYRINGE IV STA (05:01)
[2018-10-06] MEDS ORDERED: PHENobarbital 32.4 MG TAB PO SCH (07:00)
[2018-10-06 07:12] LABS: Hematocrit (blood only) 20.9 % (37-47); Hemoglobin 6.7 g/dL (12.0-16.0); Mean Corpuscular Hgb Conc 32.1 g/dL (32-36); Mean Corpuscular Volume 102.5 fL (80-100); Mean Platelet Volume 10.9 fL (7.4-10.4); Nucleated RBC # (auto) 0.02 K/uL (0-0); Nucleated RBC % (auto) 0.4 %; Platelet Count 41 K/uL (130-400); RDW Coefficient of Variation 20.2 % (11.5-14.5); RDW Standard Deviation 72.1 fL (36.4-46.3); Red Blood Count 2.04 M/uL (4.2-5.4)
[2018-10-06 07:34] LABS: Echinocytes 1+; Eosinophils # (auto) 0.01 K/uL (0-0.5); Eosinophils % (auto) 0.2 %; Hypochromasia Present; Immature Granulocytes # (auto) 0.01 K/uL (0.00-0.02); Immature Granulocytes % (auto) 0.2 %; Lymphocytes # (auto) 0.78 K/uL (1.2-3.4); Macrocytosis Present; Monocytes # (auto) 0.64 K/uL (0.11-0.59); Monocytes % (auto) 9.8 %; Neutrophils # (auto) 5.06 K/uL (1.4-6.5); Neutrophils % (auto) 77.8 %; Polychromasia 1+
[2018-10-06 07:42] LABS: BUN Creatinine Ratio 4.5 (10-20); Bilirubin Direct 5.2 mg/dl (0-0.2); Bilirubin,Total 7.3 mg/dl (0.2-1); Calcium 7.2 mg/dl (8.5-10.1); Creatinine Clr Calc Pharmacy 36.9 ml/min; Est GFR (African American) 28.7; Est GFR (Non-African American) 24.8; Magnesium 2.5 mg/dl (1.8-2.4); Phosphorus 6.5 mg/dl (2.5-4.9); Potassium 5.6 mmol/L (3.5-5.1); Total Protein 5.7 gm/dl (6.4-8.2)
[2018-10-06 08:41] LABS: Hepatitis B Surface Antigen Neg (Neg)
[2018-10-06] MEDS: PROPRANOLOL HCL 10 MG TAB PO SCH ×4 (08:45→21:30)
[2018-10-06] MEDS: FOLIC ACID 1 MG TAB PO SCH (08:45)
[2018-10-06] MEDS: PHYTONADIONE 5 MG TAB PO SCH (08:45)
[2018-10-06] MEDS: TOPIRAMATE 100 MG TAB PO SCH ×2 (08:45→21:30)
[2018-10-06] MEDS: PANTOprazole 40 MG TAB PO SCH (08:45)
[2018-10-06] MEDS: MAGNESIUM OXIDE 400 MG TAB PO SCH (08:45)
[2018-10-06] MEDS ORDERED: LORazepam 3 MG/6 ML VIAL IV PRN (08:55)
[2018-10-06] MEDS ORDERED: LORazepam 1 MG/2 ML VIAL IV PRN (08:55)
[2018-10-06] MEDS ORDERED: LORazepam 2 MG/4 ML VIAL IV PRN (08:55)
[2018-10-06] MEDS ORDERED: ATIVAN IV ALCOHOL WITHDRAWL IV SCH (09:00)
[2018-10-06] MEDS: THIAMINE HCL 100 MG in SYRINGE 9 ML IV SCH (09:48)
--- NOTE | 2018-10-06 09:58 | XRay Report ---
XR chest 1V portable CLINICAL HISTORY: CENTRAL LINE PLACEMENT COMPARISON STUDY: Chest radiograph October 04, 2018. FINDINGS: There is no pneumothorax following placement of a right internal jugular central line. Cath eter tip projects over the proximal right atrium. Lung volumes are diminished. There are bibasilar op acities with suspected small bilateral pleural effusions. Old post traumatic deformity of the distal right clavicle is noted. IMPRESSION: 1. No pneumothorax following placement of a right internal jugular central line. Catheter tip project s over the proximal right atrium. 2. Low lung volumes with mild bibasilar opacities and possible small bilateral pleural effusions. Electronically signed by: Jose Maza M.D. 10/06/2018 9:57 AM
[2018-10-06] MEDS: NORMOSOL-R 1,000 ML IV SCH ×2 (10:16→23:12)
--- NOTE | 2018-10-06 10:25 | Procedure Note ---
Procedure Note Date of Service October 06, 2018 Note Procedure Name: Central venous catheter placement Date of Service: 10/06/2018 Site: Right internal jugular Consent: Telephone consent was obtained by the patient's mother and primary contact Lia Lopez at [phone] by Dr. Tesfaye prior to the procedure Indication: Poor venous access, need for medication administration Narritive: A time out was performed. Using bedside ultra sound, the right IJ vein was identified as well as the right carotid artery. Images were obtained and saved to the PACS system. Patient did have higher risk due to an elevated INR (2.0) and thrombocytopenia (41,000), elevated lactic acid (13.9) and profound anemia (HgB 6.7; Hct 18.1). These factors were discussed with the patient's mother prior to the procedure. She stated that she understood the increased risk and consented to the procedur e. Using strict sterile technique, the ultra sound was used to identify the right internal juglar vein and 5 Mls of 1% lidocaine was used to anesthiatize the area. With the IJ identified, a finder needle was advanced using negative pressure until a flash was observed in the syringe. I was able to easily draw blood into the syringe but was unable to pass the guidewire passed 10 cm x 2 attempts. On the third attempt I was able to easily draw blood into the syringe and a guidewire was then easily advanced into the vein and the finder needle was withdrawn. A dilator was then used with no incision secondary to thrombocytopenia and coagulopathy. The dilator was then removed and a triple lumen catheter was easily placed to 15cm. There was no significant ectopy on the monitor and no hemodynamic change. The guidewire was easily removed and claves were placed on each hub. There was adequate draw and flush with each of the three ports. A chlorhexadine disc was placed at the insertion site of the catheter. The proximal hub was then secured with two sutures. The distal hub was secured with a STATLok device. A sterile dressing was placed over the catheter. There was no significant bleeding at the site of the insertion or the injection sites for the lidocaine or securement sites for the sutures. Complications: None Blood loss: 15 mls The patient tolerated the procedure well with no significant bleeding and no evidence of hematoma at the completion of the procedure. A post procedure CXR was obtained and showed adequate placement of the catheter and no evidence of pneumothorax. At the completion of the procedure, Dr. Tesfaye and Dr. Gonzalez were updated. I also called the patient's mother and gave her an update regarding the insertion of the CVC Coding CPT Codes Tubes, Drains, and Vasc Access - Tubes, Drains, and Vasc Access: Place catheter in vein superior or inferior vena cava ([id number]) Tubes, Drains, and Vasc Access - Tubes, Drains, and Vasc Access: Ultrasound Guidance For Vascular ([id number])
[2018-10-06] MEDS: FOLIC ACID 1 MG in SYRINGE 9.8 ML IV SCH (10:46)
[2018-10-06 11:32] LABS: Hemoglobin 7.7 g/dL (12.0-16.0); Mean Corpuscular Hgb Conc 33.5 g/dL (32-36); Mean Corpuscular Volume 97.9 fL (80-100); Mean Platelet Volume 11.8 fL (7.4-10.4); Nucleated RBC # (auto) 0.02 K/uL (0-0); Nucleated RBC % (auto) 0.3 %; Platelet Count 45 K/uL (130-400); RDW Coefficient of Variation 20.2 % (11.5-14.5); RDW Standard Deviation 68.4 fL (36.4-46.3); Red Blood Count 2.35 M/uL (4.2-5.4); White Blood Count 7.65 K/uL (4.8-10.8)
[2018-10-06 11:39] LABS: Anisocytosis Present; Echinocytes 2+; Hypochromasia Present; Immature Granulocytes # (auto) 0.02 K/uL (0.00-0.02); Immature Granulocytes % (auto) 0.3 %; Lymphocytes # (auto) 0.87 K/uL (1.2-3.4); Lymphocytes % (auto) 11.4 %; Monocytes # (auto) 0.64 K/uL (0.11-0.59); Monocytes % (auto) 8.4 %; Neutrophils # (auto) 6.12 K/uL (1.4-6.5); Neutrophils % (auto) 79.9 %; Polychromasia 1+
[2018-10-06 11:46] LABS: Prothrombin Time 38.6 Seconds (9.0-12.0)
[2018-10-06 11:50] LABS: INR 4.2 (0.9-1.1)
[2018-10-06] MEDS ORDERED: OCTREOTIDE ACETATE 50 MCG in SYRINGE 9.5 ML IV STA (14:13)
[2018-10-06] MEDS ORDERED: PHYTONADIONE 10 MG in SODIUM CHLORIDE 0.9% 50 ML IV STA (14:26)
[2018-10-06] MEDS ORDERED: PANTOprazole 80 MG in DEXTROSE 5% 100 ML IV STA (14:34)
--- NOTE | 2018-10-06 14:38 | Gastrointestinal Consultation ---
Date of Consultation October 06, 2018 Assessment & Plan (1) Anemia: History of Present Illness Reason for Consultation: cirrhosis, GIB suspected Requesting Physician: Jackelyn Attending Physician: Alex Hayden DO History of Present Illness 48 year old female with history of ETOH cirrhosis presently drinking, HCV, ?liver CA, asthma, depression who presented through the ED on 10/04/18 w/ abd distention, nausea, vomiting. Was later admitted to the ICU given concerning of ETOH withdrawal with seizures and altered mental status. GI was asked to evaluate the pt for 2:20 for anemia, HGB 5.4 without current evidence of GIB. Pt was se en and evaluated, chart reviewed. Nursing and rn endoscopy at bedside, updated. They assisted in history as no family present and pt is unable to provide history. She is awake, falls asleep but easy arousable to name. Not oriented to person, place, time. Unable to provide any pertinent ROS or history. This AM, hypotensive w/ anemia HGB 5.4. Allergies Allergy/AdvReac Type Severity Reaction Status Date / Time acetaminophen [From Tylenol] AdvReac Intermediate HX Verified 10/04/18 19:22 CIRRHOSIS NSAIDS (Non-Steroidal AdvReac Intermediate HX Verified 10/04/18 19:22 Anti-Inflamma CIRRHOSIS phenytoin AdvReac Intermediate LOSS OF Verified 10/04/18 19:22 EQUILIBRIUM Home Medications Home Medications Medication Instructions Recorded Confirmed Type pantoprazole [Protonix] 40 mg PO DAILY 28 Days #28 tab 09/16/18 10/04/18 Rx Potassium Tab 1 tab PO DAILY 10/04/18 10/04/18 History folic acid 1 mg PO DAILY 10/04/18 10/04/18 History magnesium oxide 400 mg PO DAILY 10/04/18 10/04/18 History penicillin V potassium 500 mg PO QID 10/04/18 10/04/18 History ranitidine HCl 150 mg PO HS 10/04/18 10/04/18 History topiramate [Topamax] 100 mg PO BID 10/04/18 10/04/18 History Patient History Medical History Hypertension (Acute) Hypokalemia Seizures Pancreatitis (Chronic) Schizoaffective disorder (Chronic) Arthritis Depression Liver disease Thyroid disease Gastritis Liver cancer (Chronic) Alcoholism Acute recurrent pancreatitis (Acute Unknown) Viral hepatitis C (Chronic Unknown) Chronic pancreatitis (Chronic Unknown) Cirrhosis, alcoholic (Chronic) Chronic renal failure, stage 3 (moderate) (Chronic) Polysubstance abuse (Acute) Depression with suicidal ideation (Acute) TIA (transient ischemic attack) (Acute) Pancytopenia (Acute) Cholecystectomy planned Cholecystectomy planned Hyponatremia Surgical History History of appendectomy Family History Mother Multiple sclerosis Father , age 52 Acute coronary occlusion without mycocardial infarction Social History Preferred Language: Tongan Communication Ability: Impaired Visual Impairment: No Limitations Umbrella Supervisor Required: No Beliefs That Will Affect Care: None marital status: Current Living Situation: Significant Other current occupational status: unemployed and disabled Other Information That Helps Us Care for You: No Feels Safe at Home: Yes Safety Concerns: Feels Safe At This Time Smoking Status: Current every day smoker Tobacco Type: cigarettes Cigarettes Per Day: 20 Do You Dip or Chew Tobacco: No Second Hand Exposure: No Tobacco Cessation Education Requested by Patient: No Hx Alcohol Use: Yes Alcohol type: beer Hx Substance Use: Yes (beer and cigarettes) substance use type: does not use Last Used Substance: Just Prior to Arrival Review of Systems Review of Systems: Unobtainable due to cognitive status Physical Exam Constitutional: well developed and + ill appearing; no acute distress Neck: trachea midline Respiratory: normal respiratory effort; no respiratory distress Cardiovascular: Rate/Rhythm: regular rate and regular rhythm Gastrointestinal (Abdomen): Inspection/Auscultation: + abdomen distended and + hypoactive bowel sounds Percussion/Palpation: + ascites; abdomen nontender, no guarding and abdomen not rigid Skin: + jaundice Results & Data Vital Signs (Past 12 Hours) Vital Signs Temp Pulse Resp BP Pulse Ox 10/06/18 14:31 35.7 C L 87 16 89/61 L 94 10/06/18 14:15 87 15 87/51 L 94 10/06/18 14:00 84 13 91/59 L 95 10/06/18 13:45 84 14 96/61 L 95 10/06/18 13:30 84 16 82/59 L 95 10/06/18 13:15 82 13 82/55 L 95 10/06/18 13:00 82 14 90/47 L 94 10/06/18 12:45 81 13 84/56 L 95 10/06/18 12:30 82 14 82/58 L 95 10/06/18 12:15 78 13 85/61 L 95 10/06/18 12:00 79 14 80/57 L 95 10/06/18 11:45 79 13 81/52 L 97 10/06/18 11:30 80 15 77/49 L 95 10/06/18 11:15 80 14 83/52 L 10/06/18 11:00 79 13 80/53 L 96 10/06/18 10:45 79 13 83/51 L 96 10/06/18 10:30 80 16 78/58 L 97 10/06/18 10:15 34.9 C L 80 16 75/51 L 95 10/06/18 10:01 34.9 C L 80 16 82/44 L 98 10/06/18 09:01 34.8 C L 84 16 115/48 L 93 10/06/18 08:31 34.9 C L 85 18 103/45 L 96 10/06/18 08:16 34.9 C L 83 18 103/52 L 100 10/06/18 07:55 85 16 105/51 L 99 10/06/18 06:30 83 18 98/49 L 100 10/06/18 06:15 83 91/46 L 100 10/06/18 06:00 82 89/45 L 100 10/06/18 05:46 82 96/44 L 100 10/06/18 05:30 82 94/43 L 100 10/06/18 05:16 82 85/40 L 100 10/06/18 05:00 83 85/46 L 100 10/06/18 04:45 83 86/49 L 100 10/06/18 04:30 83 73/34 L 99 10/06/18 04:16 83 66/42 L 100 10/06/18 04:13 83 18 66/42 L 100 10/06/18 04:00 84 86/45 L 100 10/06/18 03:58 84 17 86/45 L 100 10/06/18 03:53 83 82/42 L 99 10/06/18 03:50 84 61/43 L 100 10/06/18 03:46 84 67/40 L 99 10/06/18 03:43 85 24 73/34 L 99 10/06/18 03:31 85 73/34 L 100 10/06/18 03:15 84 73/43 L 10/06/18 03:01 85 78/40 L 10/06/18 02:45 85 66/42 L 98 Laboratory Results 10/06/18 10/06/18 10/06/18 Range/Units 11:13 11:09 11:09 WBC 7.65 RBC 2.35 L Hgb 7.7 L Hct 23.0 L MCV 97.9 MCH 32.8 MCHC 33.5 RDW Std Deviation 68.4 H RDW Coeff of Michelle 20.2 H Plt Count 45 L MPV 11.8 H Immature Gran % (Auto) 0.3 Neut % (Auto) 79.9 Lymph % (Auto) 11.4 Z[place]ata % (Auto) 8.4 Eos % (Auto) 0.0 Baso % (Auto) 0.0 Immature Gran # (Auto) 0.02 Neut # (Auto) 6.12 Lymph # (Auto) 0.87 L [place] # (Auto) 0.64 H Eos # (Auto) 0.00 Baso # (Auto) 0.00 Absolute Nucleated RBC 0.02 H Nucleated RBC % (auto) 0.3 Neutrophils % (Manual) Band Neutrophils % Lymphocytes % (Manual) Prolymphocyte % Reactive Lymphs % (Man) Monocytes % (Manual) Eosinophils % (Manual) Basophils % (Manual) Metamyelocytes % (Man) Myelocytes % (Man) Promyelocytes % (Man) Blast Cells % (Manual) Plasma Cell % (Manual) Other Cells % Nucleated RBC % Neutrophils # (Manual) Band Neutrophils # Total Absolute Neuts Lymphocytes # (Manual) Prolymphocyte # Reactive Lymphs # Total Abs Lymphocytes Monocytes # (Manual) Eosinophils # (Manual) Basophils # (Manual) Metamyelocytes # (Man) Myelocytes # (Manual) Promyelocytes # (Man) Blast Cells # (Man) Plasma Cell # (Manual) Other Cells # Nucleated RBCs # (Man) Hypersegmented Neuts Hyposegmented Neuts Hypogranular Neuts Large Granular Lymphs # Lrg Granular Lymphs Hairy Cells Smudge Cells Toxic Granulation Toxic Vacuolation Dohle Bodies Bin Rods Platelet Estimate Hypogranular Platelets Clumped Platelets Giant Platelets Platelet Satelliting RBC Morphology Polychromasia 1+ Hypochromasia Present Poikilocytosis Basophilic Stippling Anisocytosis Present Microcytosis Macrocytosis Spherocytes Pappenheimer Bodies Sickle Cells Target Cells Tear Drop Cells Ovalocytes Stomatocytes Callahan-Ozone Bodies Echinocytes 2+ Acanthocytes (Spur) Rouleaux RBC Agglutinates Schistocytes RBC Morph Comment Sezary Cell PT 38.6 H INR 4.2 H Sodium (136-145) mmol/L Potassium (3.5-5.1) mmol/L Chloride (98-107) mmol/L Carbon Dioxide (21-32) mmol/L Anion Gap (3-11) BUN (7-18) mg/dl Creatinine (0.6-1.2) mg/dl Est Cr Clr Drug Dosing ml/min Est GFR ( Amer) Est GFR (Non-Af Amer) BUN/Creatinine Ratio (10-20) Glucose (70-99) mg/dl POC Glucose (70-99) POC Glucose (other) 112 H (70-99) mg/dl Lactate (0.4-2.0) mmol/L Calcium (8.5-10.1) mg/dl Ionized Calcium (1.12-1.32) mmol/L Phosphorus (2.5-4.9) mg/dl Magnesium (1.8-2.4) mg/dl Total Bilirubin (0.2-1) mg/dl Direct Bilirubin (0-0.2) mg/dl AST (15-37) U/L ALT (12-78) U/L Alkaline Phosphatase (45-117) U/L Total Protein (6.4-8.2) gm/dl Albumin (3.4-5.0) gm/dl Lipase (73-393) U/L Nasal Screen MRSA (PCR) (Negative) Hepatitis A IgM Ab Hep Bs Antigen (Neg) Hep B Core IgM Ab Hepatitis C Antibody (Neg) HCV RNA Qual (TMA) Blood Type Antibody Screen Crossmatch 10/06/18 10/06/18 10/06/18 Range/Units 07:50 06:51 06:51 WBC RBC Hgb Hct MCV MCH MCHC RDW Std Deviation RDW Coeff of Michelle Plt Count MPV Immature Gran % (Auto) Neut % (Auto) Lymph % (Auto) Z[place] % (Auto) Eos % (Auto) Baso % (Auto) Immature Gran # (Auto) Neut # (Auto) Lymph # (Auto) [place] # (Auto) Eos # (Auto) Baso # (Auto) Absolute Nucleated RBC Nucleated RBC % (auto) Neutrophils % (Manual) Band Neutrophils % Lymphocytes % (Manual) Prolymphocyte % Reactive Lymphs % (Man) Monocytes % (Manual) Eosinophils % (Manual) Basophils % (Manual) Metamyelocytes % (Man) Myelocytes % (Man) Promyelocytes % (Man) Blast Cells % (Manual) Plasma Cell % (Manual) Other Cells % Nucleated RBC % Neutrophils # (Manual) Band Neutrophils # Total Absolute Neuts Lymphocytes # (Manual) Prolymphocyte # Reactive Lymphs # Total Abs Lymphocytes Monocytes # (Manual) Eosinophils # (Manual) Basophils # (Manual) Metamyelocytes # (Man) Myelocytes # (Manual) Promyelocytes # (Man) Blast Cells # (Man) Plasma Cell # (Manual) Other Cells # Nucleated RBCs # (Man) Hypersegmented Neuts Hyposegmented Neuts Hypogranular Neuts Large Granular Lymphs # Lrg Granular Lymphs Hairy Cells Smudge Cells Toxic Granulation Toxic Vacuolation Dohle Bodies Bin Rods Platelet Estimate Hypogranular Platelets Clumped Platelets Giant Platelets Platelet Satelliting RBC Morphology Polychromasia Hypochromasia Poikilocytosis Basophilic Stippling Anisocytosis Microcytosis Macrocytosis Spherocytes Pappenheimer Bodies Sickle Cells Target Cells Tear Drop Cells Ovalocytes Stomatocytes Callahan-Ozone Bodies Echinocytes Acanthocytes (Spur) Rouleaux RBC Agglutinates Schistocytes RBC Morph Comment Sezary Cell PT Cancelled INR Cancelled Sodium (136-145) mmol/L Potassium (3.5-5.1) mmol/L Chloride (98-107) mmol/L Carbon Dioxide (21-32) mmol/L Anion Gap (3-11) BUN (7-18) mg/dl Creatinine (0.6-1.2) mg/dl Est Cr Clr Drug Dosing ml/min Est GFR ( Amer) Est GFR (Non-Af Amer) BUN/Creatinine Ratio (10-20) Glucose (70-99) mg/dl POC Glucose (70-99) POC Glucose (other) (70-99) mg/dl Lactate 13.9 H* (0.4-2.0) mmol/L Calcium (8.5-10.1) mg/dl Ionized Calcium (1.12-1.32) mmol/L Phosphorus (2.5-4.9) mg/dl Magnesium (1.8-2.4) mg/dl Total Bilirubin (0.2-1) mg/dl Direct Bilirubin (0-0.2) mg/dl AST (15-37) U/L ALT (12-78) U/L Alkaline Phosphatase (45-117) U/L Total Protein (6.4-8.2) gm/dl Albumin (3.4-5.0) gm/dl Lipase (73-393) U/L Nasal Screen MRSA (PCR) (Negative) Hepatitis A IgM Ab Hep Bs Antigen Neg (Neg) Hep B Core IgM Ab Hepatitis C Antibody Prelim Pos A (Neg) HCV RNA Qual (TMA) Blood Type Antibody Screen Crossmatch 10/06/18 10/06/18 10/06/18 Range/Units 06:51 06:51 06:51 WBC 6.50 RBC 2.04 L Hgb 6.7 L* Hct 20.9 L* MCV 102.5 H D MCH 32.8 MCHC 32.1 RDW Std Deviation 72.1 H RDW Coeff of Michelle 20.2 H Plt Count 41 L MPV 10.9 H Immature Gran % (Auto) 0.2 Neut % (Auto) 77.8 Lymph % (Auto) 12.0 Z[place] % (Auto) 9.8 Eos % (Auto) 0.2 Baso % (Auto) 0.0 Immature Gran # (Auto) 0.01 Neut # (Auto) 5.06 Lymph # (Auto) 0.78 L [place] # (Auto) 0.64 H Eos # (Auto) 0.01 Baso # (Auto) 0.00 Absolute Nucleated RBC 0.02 H Nucleated RBC % (auto) 0.4 Neutrophils % (Manual) Band Neutrophils % Lymphocytes % (Manual) Prolymphocyte % Reactive Lymphs % (Man) Monocytes % (Manual) Eosinophils % (Manual) Basophils % (Manual) Metamyelocytes % (Man) Myelocytes % (Man) Promyelocytes % (Man) Blast Cells % (Manual) Plasma Cell % (Manual) Other Cells % Nucleated RBC % Neutrophils # (Manual) Band Neutrophils # Total Absolute Neuts Lymphocytes # (Manual) Prolymphocyte # Reactive Lymphs # Total Abs Lymphocytes Monocytes # (Manual) Eosinophils # (Manual) Basophils # (Manual) Metamyelocytes # (Man) Myelocytes # (Manual) Promyelocytes # (Man) Blast Cells # (Man) Plasma Cell # (Manual) Other Cells # Nucleated RBCs # (Man) Hypersegmented Neuts Hyposegmented Neuts Hypogranular Neuts Large Granular Lymphs # Lrg Granular Lymphs Hairy Cells Smudge Cells Toxic Granulation Toxic Vacuolation Dohle Bodies Bin Rods Platelet Estimate Hypogranular Platelets Clumped Platelets Giant Platelets Platelet Satelliting RBC Morphology Polychromasia 1+ Hypochromasia Present Poikilocytosis Basophilic Stippling Anisocytosis Microcytosis Macrocytosis Present Spherocytes Pappenheimer Bodies Sickle Cells Target Cells Tear Drop Cells Ovalocytes Stomatocytes Callahan-Ozone Bodies Echinocytes 1+ Acanthocytes (Spur) Rouleaux RBC Agglutinates Schistocytes RBC Morph Comment Sezary Cell PT INR Sodium 135 L (136-145) mmol/L Potassium 5.6 H D (3.5-5.1) mmol/L Chloride 103 (98-107) mmol/L Carbon Dioxide 11 L (21-32) mmol/L Anion Gap 21.0 H (3-11) BUN 10 (7-18) mg/dl Creatinine 2.24 H D (0.6-1.2) mg/dl Est Cr Clr Drug Dosing 36.9 ml/min Est GFR ( Amer) 28.7 Est GFR (Non-Af Amer) 24.8 BUN/Creatinine Ratio 4.5 L (10-20) Glucose 101 H (70-99) mg/dl POC Glucose (70-99) POC Glucose (other) (70-99) mg/dl Lactate (0.4-2.0) mmol/L Calcium 7.2 L (8.5-10.1) mg/dl Ionized Calcium 0.92 L (1.12-1.32) mmol/L Phosphorus 6.5 H (2.5-4.9) mg/dl Magnesium 2.5 H (1.8-2.4) mg/dl Total Bilirubin 7.3 H (0.2-1) mg/dl Direct Bilirubin 5.2 H (0-0.2) mg/dl AST 6458 H (15-37) U/L ALT 1033 H (12-78) U/L Alkaline Phosphatase 139 H (45-117) U/L Total Protein 5.7 L D (6.4-8.2) gm/dl Albumin 2.0 L (3.4-5.0) gm/dl Lipase (73-393) U/L Nasal Screen MRSA (PCR) (Negative) Hepatitis A IgM Ab Hep Bs Antigen (Neg) Hep B Core IgM Ab Hepatitis C Antibody (Neg) HCV RNA Qual (TMA) Blood Type Antibody Screen Crossmatch 10/06/18 10/06/18 10/06/18 Range/Units 06:50 06:50 02:50 WBC RBC Hgb 6.3 L* Hct 20.9 L* MCV MCH MCHC RDW Std Deviation RDW Coeff of Michelle Plt Count MPV Immature Gran % (Auto) Neut % (Auto) Lymph % (Auto) [place] % (Auto) Eos % (Auto) Baso % (Auto) Immature Gran # (Auto) Neut # (Auto) Lymph # (Auto) [place] # (Auto) Eos # (Auto) Baso # (Auto) Absolute Nucleated RBC Nucleated RBC % (auto) Neutrophils % (Manual) Band Neutrophils % Lymphocytes % (Manual) Prolymphocyte % Reactive Lymphs % (Man) Monocytes % (Manual) Eosinophils % (Manual) Basophils % (Manual) Metamyelocytes % (Man) Myelocytes % (Man) Promyelocytes % (Man) Blast Cells % (Manual) Plasma Cell % (Manual) Other Cells % Nucleated RBC % Neutrophils # (Manual) Band Neutrophils # Total Absolute Neuts Lymphocytes # (Manual) Prolymphocyte # Reactive Lymphs # Total Abs Lymphocytes Monocytes # (Manual) Eosinophils # (Manual) Basophils # (Manual) Metamyelocytes # (Man) Myelocytes # (Manual) Promyelocytes # (Man) Blast Cells # (Man) Plasma Cell # (Manual) Other Cells # Nucleated RBCs # (Man) Hypersegmented Neuts Hyposegmented Neuts Hypogranular Neuts Large Granular Lymphs # Lrg Granular Lymphs Hairy Cells Smudge Cells Toxic Granulation Toxic Vacuolation Dohle Bodies Bin Rods Platelet Estimate Hypogranular Platelets Clumped Platelets Giant Platelets Platelet Satelliting RBC Morphology Polychromasia Hypochromasia Poikilocytosis Basophilic Stippling Anisocytosis Microcytosis Macrocytosis Spherocytes Pappenheimer Bodies Sickle Cells Target Cells Tear Drop Cells Ovalocytes Stomatocytes Callahan-Ozone Bodies Echinocytes Acanthocytes (Spur) Rouleaux RBC Agglutinates Schistocytes RBC Morph Comment Sezary Cell PT Cancelled INR Cancelled Sodium (136-145) mmol/L Potassium (3.5-5.1) mmol/L Chloride (98-107) mmol/L Carbon Dioxide (21-32) mmol/L Anion Gap (3-11) BUN (7-18) mg/dl Creatinine (0.6-1.2) mg/dl Est Cr Clr Drug Dosing ml/min Est GFR ( Amer) Est GFR (Non-Af Amer) BUN/Creatinine Ratio (10-20) Glucose (70-99) mg/dl POC Glucose (70-99) POC Glucose (other) (70-99) mg/dl Lactate (0.4-2.0) mmol/L Calcium (8.5-10.1) mg/dl Ionized Calcium (1.12-1.32) mmol/L Phosphorus (2.5-4.9) mg/dl Magnesium (1.8-2.4) mg/dl Total Bilirubin (0.2-1) mg/dl Direct Bilirubin (0-0.2) mg/dl AST (15-37) U/L ALT (12-78) U/L Alkaline Phosphatase (45-117) U/L Total Protein (6.4-8.2) gm/dl Albumin (3.4-5.0) gm/dl Lipase (73-393) U/L Nasal Screen MRSA (PCR) (Negative) Hepatitis A IgM Ab Pending Hep Bs Antigen (Neg) Hep B Core IgM Ab Pending Hepatitis C Antibody (Neg) HCV RNA Qual (TMA) Pending Blood Type Antibody Screen Crossmatch 10/06/18 10/05/18 10/05/18 Range/Units 02:03 23:47 23:18 WBC 6.23 RBC 1.66 L Hgb 5.4 L* Hct 18.1 L* MCV 109.0 H MCH 32.5 MCHC 29.8 L RDW Std Deviation 77.7 H RDW Coeff of Michelle 19.9 H Plt Count 37 L MPV 12.3 H Immature Gran % (Auto) 0.3 Neut % (Auto) 74.3 Lymph % (Auto) 13.0 [place] % (Auto) 12.2 Eos % (Auto) 0.2 Baso % (Auto) 0.0 Immature Gran # (Auto) 0.02 Neut # (Auto) 4.63 Lymph # (Auto) 0.81 L [place] # (Auto) 0.76 H Eos # (Auto) 0.01 Baso # (Auto) 0.00 Absolute Nucleated RBC 0.08 H Nucleated RBC % (auto) 1.2 Neutrophils % (Manual) Band Neutrophils % Lymphocytes % (Manual) Prolymphocyte % Reactive Lymphs % (Man) Monocytes % (Manual) Eosinophils % (Manual) Basophils % (Manual) Metamyelocytes % (Man) Myelocytes % (Man) Promyelocytes % (Man) Blast Cells % (Manual) Plasma Cell % (Manual) Other Cells % Nucleated RBC % Neutrophils # (Manual) Band Neutrophils # Total Absolute Neuts Lymphocytes # (Manual) Prolymphocyte # Reactive Lymphs # Total Abs Lymphocytes Monocytes # (Manual) Eosinophils # (Manual) Basophils # (Manual) Metamyelocytes # (Man) Myelocytes # (Manual) Promyelocytes # (Man) Blast Cells # (Man) Plasma Cell # (Manual) Other Cells # Nucleated RBCs # (Man) Hypersegmented Neuts Hyposegmented Neuts Hypogranular Neuts Large Granular Lymphs # Lrg Granular Lymphs Hairy Cells Smudge Cells Toxic Granulation Toxic Vacuolation 1+ Dohle Bodies Bin Rods Platelet Estimate Hypogranular Platelets Clumped Platelets Giant Platelets 1+ Platelet Satelliting RBC Morphology Polychromasia 1+ Hypochromasia Poikilocytosis Basophilic Stippling Anisocytosis Microcytosis Macrocytosis Spherocytes Pappenheimer Bodies Sickle Cells Target Cells Tear Drop Cells Ovalocytes Stomatocytes Callahan-Ozone Bodies Echinocytes 2+ Acanthocytes (Spur) Rouleaux RBC Agglutinates Schistocytes RBC Morph Comment Sezary Cell PT INR Sodium (136-145) mmol/L Potassium (3.5-5.1) mmol/L Chloride (98-107) mmol/L Carbon Dioxide (21-32) mmol/L Anion Gap (3-11) BUN (7-18) mg/dl Creatinine (0.6-1.2) mg/dl Est Cr Clr Drug Dosing ml/min Est GFR ( Amer) Est GFR (Non-Af Amer) BUN/Creatinine Ratio (10-20) Glucose (70-99) mg/dl POC Glucose 120 H 70 (70-99) POC Glucose (other) (70-99) mg/dl Lactate (0.4-2.0) mmol/L Calcium (8.5-10.1) mg/dl Ionized Calcium (1.12-1.32) mmol/L Phosphorus (2.5-4.9) mg/dl Magnesium (1.8-2.4) mg/dl Total Bilirubin (0.2-1) mg/dl Direct Bilirubin (0-0.2) mg/dl AST (15-37) U/L ALT (12-78) U/L Alkaline Phosphatase (45-117) U/L Total Protein (6.4-8.2) gm/dl Albumin (3.4-5.0) gm/dl Lipase (73-393) U/L Nasal Screen MRSA (PCR) (Negative) Hepatitis A IgM Ab Hep Bs Antigen (Neg) Hep B Core IgM Ab Hepatitis C Antibody (Neg) HCV RNA Qual (TMA) Blood Type Antibody Screen Crossmatch 10/05/18 10/05/18 10/05/18 Range/Units 23:15 20:14 20:06 WBC 6.38 RBC 2.16 L Hgb 7.3 L Hct 23.2 L MCV 107.4 H D MCH 33.8 MCHC 31.5 L RDW Std Deviation 77.2 H RDW Coeff of Michelle 19.8 H Plt Count 55 L MPV 11.6 H Immature Gran % (Auto) 0.6 Neut % (Auto) 79.2 Lymph % (Auto) 6.1 [place] % (Auto) 13.6 Eos % (Auto) 0.3 Baso % (Auto) 0.2 Immature Gran # (Auto) 0.04 H Neut # (Auto) 5.05 Lymph # (Auto) 0.39 L [place] # (Auto) 0.87 H Eos # (Auto) 0.02 Baso # (Auto) 0.01 Absolute Nucleated RBC 0.07 H Nucleated RBC % (auto) 1.1 Neutrophils % (Manual) Band Neutrophils % Lymphocytes % (Manual) Prolymphocyte % Reactive Lymphs % (Man) Monocytes % (Manual) Eosinophils % (Manual) Basophils % (Manual) Metamyelocytes % (Man) Myelocytes % (Man) Promyelocytes % (Man) Blast Cells % (Manual) Plasma Cell % (Manual) Other Cells % Nucleated RBC % Neutrophils # (Manual) Band Neutrophils # Total Absolute Neuts Lymphocytes # (Manual) Prolymphocyte # Reactive Lymphs # Total Abs Lymphocytes Monocytes # (Manual) Eosinophils # (Manual) Basophils # (Manual) Metamyelocytes # (Man) Myelocytes # (Manual) Promyelocytes # (Man) Blast Cells # (Man) Plasma Cell # (Manual) Other Cells # Nucleated RBCs # (Man) Hypersegmented Neuts Hyposegmented Neuts Hypogranular Neuts Large Granular Lymphs # Lrg Granular Lymphs Hairy Cells Smudge Cells Toxic Granulation Toxic Vacuolation 2+ Dohle Bodies Bin Rods Platelet Estimate Hypogranular Platelets Clumped Platelets Giant Platelets 1+ Platelet Satelliting RBC Morphology Polychromasia 1+ Hypochromasia Poikilocytosis Basophilic Stippling Anisocytosis Microcytosis Macrocytosis Spherocytes Pappenheimer Bodies Sickle Cells Target Cells Tear Drop Cells Ovalocytes Stomatocytes Callahan-Ozone Bodies Echinocytes 2+ Acanthocytes (Spur) Rouleaux RBC Agglutinates Schistocytes RBC Morph Comment Sezary Cell PT INR Sodium (136-145) mmol/L Potassium (3.5-5.1) mmol/L Chloride (98-107) mmol/L Carbon Dioxide (21-32) mmol/L Anion Gap (3-11) BUN (7-18) mg/dl Creatinine (0.6-1.2) mg/dl Est Cr Clr Drug Dosing ml/min Est GFR ( Amer) Est GFR (Non-Af Amer) BUN/Creatinine Ratio (10-20) Glucose (70-99) mg/dl POC Glucose 63 L* 99 (70-99) POC Glucose (other) (70-99) mg/dl Lactate (0.4-2.0) mmol/L Calcium (8.5-10.1) mg/dl Ionized Calcium (1.12-1.32) mmol/L Phosphorus (2.5-4.9) mg/dl Magnesium (1.8-2.4) mg/dl Total Bilirubin (0.2-1) mg/dl Direct Bilirubin (0-0.2) mg/dl AST (15-37) U/L ALT (12-78) U/L Alkaline Phosphatase (45-117) U/L Total Protein (6.4-8.2) gm/dl Albumin (3.4-5.0) gm/dl Lipase (73-393) U/L Nasal Screen MRSA (PCR) (Negative) Hepatitis A IgM Ab Hep Bs Antigen (Neg) Hep B Core IgM Ab Hepatitis C Antibody (Neg) HCV RNA Qual (TMA) Blood Type Antibody Screen Crossmatch 10/05/18 10/05/18 10/05/18 Range/Units 19:47 19:46 18:56 WBC RBC Hgb Hct MCV MCH MCHC RDW Std Deviation RDW Coeff of Michelle Plt Count MPV Immature Gran % (Auto) Neut % (Auto) Lymph % (Auto) [place] % (Auto) Eos % (Auto) Baso % (Auto) Immature Gran # (Auto) Neut # (Auto) Lymph # (Auto) [place] # (Auto) Eos # (Auto) Baso # (Auto) Absolute Nucleated RBC Nucleated RBC % (auto) Neutrophils % (Manual) Band Neutrophils % Lymphocytes % (Manual) Prolymphocyte % Reactive Lymphs % (Man) Monocytes % (Manual) Eosinophils % (Manual) Basophils % (Manual) Metamyelocytes % (Man) Myelocytes % (Man) Promyelocytes % (Man) Blast Cells % (Manual) Plasma Cell % (Manual) Other Cells % Nucleated RBC % Neutrophils # (Manual) Band Neutrophils # Total Absolute Neuts Lymphocytes # (Manual) Prolymphocyte # Reactive Lymphs # Total Abs Lymphocytes Monocytes # (Manual) Eosinophils # (Manual) Basophils # (Manual) Metamyelocytes # (Man) Myelocytes # (Manual) Promyelocytes # (Man) Blast Cells # (Man) Plasma Cell # (Manual) Other Cells # Nucleated RBCs # (Man) Hypersegmented Neuts Hyposegmented Neuts Hypogranular Neuts Large Granular Lymphs # Lrg Granular Lymphs Hairy Cells Smudge Cells Toxic Granulation Toxic Vacuolation Dohle Bodies Bni Rods Platelet Estimate Hypogranular Platelets Clumped Platelets Giant Platelets Platelet Satelliting RBC Morphology Polychromasia Hypochromasia Poikilocytosis Basophilic Stippling Anisocytosis Microcytosis Macrocytosis Spherocytes Pappenheimer Bodies Sickle Cells Target Cells Tear Drop Cells Ovalocytes Stomatocytes Callahan-Ozone Bodies Echinocytes Acanthocytes (Spur) Rouleaux RBC Agglutinates Schistocytes RBC Morph Comment Sezary Cell PT INR Sodium (136-145) mmol/L Potassium (3.5-5.1) mmol/L Chloride (98-107) mmol/L Carbon Dioxide (21-32) mmol/L Anion Gap (3-11) BUN (7-18) mg/dl Creatinine (0.6-1.2) mg/dl Est Cr Clr Drug Dosing ml/min Est GFR ( Amer) Est GFR (Non-Af Amer) BUN/Creatinine Ratio (10-20) Glucose (70-99) mg/dl POC Glucose 47 L* 51 L* (70-99) POC Glucose (other) (70-99) mg/dl Lactate (0.4-2.0) mmol/L Calcium (8.5-10.1) mg/dl Ionized Calcium (1.12-1.32) mmol/L Phosphorus (2.5-4.9) mg/dl Magnesium (1.8-2.4) mg/dl Total Bilirubin (0.2-1) mg/dl Direct Bilirubin (0-0.2) mg/dl AST (15-37) U/L ALT (12-78) U/L Alkaline Phosphatase (45-117) U/L Total Protein (6.4-8.2) gm/dl Albumin (3.4-5.0) gm/dl Lipase 279 (73-393) U/L Nasal Screen MRSA (PCR) (Negative) Hepatitis A IgM Ab Hep Bs Antigen (Neg) Hep B Core IgM Ab Hepatitis C Antibody (Neg) HCV RNA Qual (TMA) Blood Type Antibody Screen Crossmatch 10/05/18 10/05/18 10/04/18 Range/Units 18:50 18:30 19:01 WBC Cancelled RBC Cancelled Hgb Cancelled Hct Cancelled MCV Cancelled MCH Cancelled MCHC Cancelled RDW Std Deviation Cancelled RDW Coeff of Michelle Cancelled Plt Count Cancelled MPV Cancelled Immature Gran % (Auto) Cancelled Neut % (Auto) Cancelled Lymph % (Auto) Cancelled [place] % (Auto) Cancelled Eos % (Auto) Cancelled Baso % (Auto) Cancelled Immature Gran # (Auto) Cancelled Neut # (Auto) Cancelled Lymph # (Auto) Cancelled [place] # (Auto) Cancelled Eos # (Auto) Cancelled Baso # (Auto) Cancelled Absolute Nucleated RBC Cancelled Nucleated RBC % (auto) Cancelled Neutrophils % (Manual) Cancelled Band Neutrophils % Cancelled Lymphocytes % (Manual) Cancelled Prolymphocyte % Cancelled Reactive Lymphs % (Man) Cancelled Monocytes % (Manual) Cancelled Eosinophils % (Manual) Cancelled Basophils % (Manual) Cancelled Metamyelocytes % (Man) Cancelled Myelocytes % (Man) Cancelled Promyelocytes % (Man) Cancelled Blast Cells % (Manual) Cancelled Plasma Cell % (Manual) Cancelled Other Cells % Cancelled Nucleated RBC % Cancelled Neutrophils # (Manual) Cancelled Band Neutrophils # Cancelled Total Absolute Neuts Cancelled Lymphocytes # (Manual) Cancelled Prolymphocyte # Cancelled Reactive Lymphs # Cancelled Total Abs Lymphocytes Cancelled Monocytes # (Manual) Cancelled Eosinophils # (Manual) Cancelled Basophils # (Manual) Cancelled Metamyelocytes # (Man) Cancelled Myelocytes # (Manual) Cancelled Promyelocytes # (Man) Cancelled Blast Cells # (Man) Cancelled Plasma Cell # (Manual) Cancelled Other Cells # Cancelled Nucleated RBCs # (Man) Cancelled Hypersegmented Neuts Cancelled Hyposegmented Neuts Cancelled Hypogranular Neuts Cancelled Large Granular Lymphs Cancelled # Lrg Granular Lymphs Cancelled Hairy Cells Cancelled Smudge Cells Cancelled Toxic Granulation Cancelled Toxic Vacuolation Cancelled Dohle Bodies Cancelled Bin Rods Cancelled Platelet Estimate Cancelled Hypogranular Platelets Cancelled Clumped Platelets Cancelled Giant Platelets Cancelled Platelet Satelliting Cancelled RBC Morphology Cancelled Polychromasia Cancelled Hypochromasia Cancelled Poikilocytosis Cancelled Basophilic Stippling Cancelled Anisocytosis Cancelled Microcytosis Cancelled Macrocytosis Cancelled Spherocytes Cancelled Pappenheimer Bodies Cancelled Sickle Cells Cancelled Target Cells Cancelled Tear Drop Cells Cancelled Ovalocytes Cancelled Stomatocytes Cancelled [place]-Ozone Bodies Cancelled Echinocytes Cancelled Acanthocytes (Spur) Cancelled Rouleaux Cancelled RBC Agglutinates Cancelled Schistocytes Cancelled RBC Morph Comment Cancelled Sezary Cell Cancelled PT INR Sodium (136-145) mmol/L Potassium (3.5-5.1) mmol/L Chloride (98-107) mmol/L Carbon Dioxide (21-32) mmol/L Anion Gap (3-11) BUN (7-18) mg/dl Creatinine (0.6-1.2) mg/dl Est Cr Clr Drug Dosing ml/min Est GFR ( Amer) Est GFR (Non-Af Amer) BUN/Creatinine Ratio (10-20) Glucose (70-99) mg/dl POC Glucose (70-99) POC Glucose (other) (70-99) mg/dl Lactate (0.4-2.0) mmol/L Calcium (8.5-10.1) mg/dl Ionized Calcium (1.12-1.32) mmol/L Phosphorus (2.5-4.9) mg/dl Magnesium (1.8-2.4) mg/dl Total Bilirubin (0.2-1) mg/dl Direct Bilirubin (0-0.2) mg/dl AST (15-37) U/L ALT (12-78) U/L Alkaline Phosphatase (45-117) U/L Total Protein (6.4-8.2) gm/dl Albumin (3.4-5.0) gm/dl Lipase (73-393) U/L Nasal Screen MRSA (PCR) Negative (Negative) Hepatitis A IgM Ab Hep Bs Antigen (Neg) Hep B Core IgM Ab Hepatitis C Antibody (Neg) HCV RNA Qual (TMA) Blood Type A Positive Antibody Screen NEGATIVE Crossmatch See Detail
[2018-10-06] MEDS: OCTREOTIDE ACETATE 500 MCG in 0.9 % SODIUM CHLORIDE 100 ML IV SCH ×2 (14:49→23:10)
--- NOTE | 2018-10-06 14:52 | Critical Care Progress Note ---
Date of Service October 06, 2018 Assessment & Plan (1) Acute encephalopathy: Due to chronic alcoholism, renal failure and liver failure. Will continue multivitamins and thiamine and benzodiazepines to prevent withdrawal. Phenobarbital discontinued (2) Acute alcohol intoxication in patient with alcoholism with blood alcohol level over 0.3: No specific intervention necessary (3) Acute kidney injury: Nephrology has been consulted. We will avoid nephrotoxins. It seems likely that she is developing hepatorenal syndrome in the setting of acute hepatic failure and chronic alcoholic cirrhosis. She is hypotensive and pressor dependent and not likely to be a candidate for dialysis (4) Liver cirrhosis, alcoholic: In addition to her chronic cirrhosis she now has evidence of acute hepatic failure with loss of synthetic capability and shock liver. Consequently her prognosis is very poor. She is not a candidate for transplantation due to active drinking and so there is not likely to be benefit to transferring her to a higher level of care. Efforts to contact her family are underway but so far we have been unable to reach them. (5) Anemia: Acute, blood loss type although source of bleeding is unclear. We are transfusing additional packed red blood cells and will obtain noncontrast CT scan of the abdomen. Unfortunately therapeutic options are severely limited. Subjective 48-year-old alcoholic with history of cirrhosis, still actively drinking admitted yesterday with possible withdrawal seizure. Central line was placed this morning due to lack of IV access. Overnight hemoglobin decreased to 5.4 and patient received 2 units of packed red blood cells and we have just ordered a third unit. I have also ordered 10 mg of IV vitamin K as her INR patient has risen rapidly since admission to 4.3. Her creatinine was normal on admission and is now 2.24 and urine output has decreased to under 20 cc an hour. Consults have been placed to GI and nephrology. Patient is lethargic, we have stopped her phenobarbital. We also note that transaminases are rising very rapidly possibly due to shock liver and lactate is markedly elevated. She has not passed any blood rectally. She pulled out her NG tube this morning. Blood pressure has been low and Levophed was started overnight. Review of Systems Review of Systems: Unobtainable due to reduced consciousness Physical Exam Constitutional: Chronically ill-appearing lethargic with semipurposeful movements Eyes: + scleral abnormality and + anicteric sclerae Pupils round reactive, sclera icteric ENMT: Dry mucous membranes Neck: Supple no meningismus no JVD right IJ central line present Respiratory: Clear to auscultation with no wheezing rales or rhonchi Cardiovascular: Regular rhythm no murmurs rubs or gallops Gastrointestinal (Abdomen): Mild to moderate diffuse tenderness, distended, bowel sounds hypoactive, no masses Musculoskeletal: No deformities no cyanosis no clubbing Skin: No rash petechia or purpura Neurologic: Lethargic unresponsive to commands no focality appreciated Genitourinary: Plasencia in place, urine appears concentrated Results & Data Vital Signs (Past 12 Hours) Vital Signs Temp Pulse Resp BP Pulse Ox 10/06/18 14:31 35.7 C L 87 16 89/61 L 94 10/06/18 14:15 87 15 87/51 L 94 10/06/18 14:00 84 13 91/59 L 95 10/06/18 13:45 84 14 96/61 L 95 10/06/18 13:30 84 16 82/59 L 95 10/06/18 13:15 82 13 82/55 L 95 10/06/18 13:00 82 14 90/47 L 94 10/06/18 12:45 81 13 84/56 L 95 10/06/18 12:30 82 14 82/58 L 95 10/06/18 12:15 78 13 85/61 L 95 10/06/18 12:00 79 14 80/57 L 95 10/06/18 11:45 79 13 81/52 L 97 10/06/18 11:30 80 15 77/49 L 95 10/06/18 11:15 80 14 83/52 L 10/06/18 11:00 79 13 80/53 L 96 10/06/18 10:45 79 13 83/51 L 96 10/06/18 10:30 80 16 78/58 L 97 10/06/18 10:15 34.9 C L 80 16 75/51 L 95 10/06/18 10:01 34.9 C L 80 16 82/44 L 98 10/06/18 09:01 34.8 C L 84 16 115/48 L 93 10/06/18 08:31 34.9 C L 85 18 103/45 L 96 10/06/18 08:16 34.9 C L 83 18 103/52 L 100 10/06/18 07:55 85 16 105/51 L 99 10/06/18 06:30 83 18 98/49 L 100 10/06/18 06:15 83 91/46 L 100 10/06/18 06:00 82 89/45 L 100 10/06/18 05:46 82 96/44 L 100 10/06/18 05:30 82 94/43 L 100 10/06/18 05:16 82 85/40 L 100 10/06/18 05:00 83 85/46 L 100 10/06/18 04:45 83 86/49 L 100 10/06/18 04:30 83 73/34 L 99 10/06/18 04:16 83 66/42 L 100 10/06/18 04:13 83 18 66/42 L 100 10/06/18 04:00 84 86/45 L 100 10/06/18 03:58 84 17 86/45 L 100 10/06/18 03:53 83 82/42 L 99 10/06/18 03:50 84 61/43 L 100 10/06/18 03:46 84 67/40 L 99 10/06/18 03:43 85 24 73/34 L 99 10/06/18 03:31 85 73/34 L 100 10/06/18 03:15 84 73/43 L 10/06/18 03:01 85 78/40 L 10/06/18 02:45 85 66/42 L 98 Laboratory Results 10/06/18 10/06/18 10/06/18 Range/Units 14:54 11:13 11:09 WBC RBC Hgb Hct MCV MCH MCHC RDW Std Deviation RDW Coeff of Michelle Plt Count MPV Immature Gran % (Auto) Neut % (Auto) Lymph % (Auto) Young % (Auto) Eos % (Auto) Baso % (Auto) Immature Gran # (Auto) Neut # (Auto) Lymph # (Auto) Young # (Auto) Eos # (Auto) Baso # (Auto) Absolute Nucleated RBC Nucleated RBC % (auto) Neutrophils % (Manual) Band Neutrophils % Lymphocytes % (Manual) Prolymphocyte % Reactive Lymphs % (Man) Monocytes % (Manual) Eosinophils % (Manual) Basophils % (Manual) Metamyelocytes % (Man) Myelocytes % (Man) Promyelocytes % (Man) Blast Cells % (Manual) Plasma Cell % (Manual) Other Cells % Nucleated RBC % Neutrophils # (Manual) Band Neutrophils # Total Absolute Neuts Lymphocytes # (Manual) Prolymphocyte # Reactive Lymphs # Total Abs Lymphocytes Monocytes # (Manual) Eosinophils # (Manual) Basophils # (Manual) Metamyelocytes # (Man) Myelocytes # (Manual) Promyelocytes # (Man) Blast Cells # (Man) Plasma Cell # (Manual) Other Cells # Nucleated RBCs # (Man) Hypersegmented Neuts Hyposegmented Neuts Hypogranular Neuts Large Granular Lymphs # Lrg Granular Lymphs Hairy Cells Smudge Cells Toxic Granulation Toxic Vacuolation Dohle Bodies Bin Rods Platelet Estimate Hypogranular Platelets Clumped Platelets Giant Platelets Platelet Satelliting RBC Morphology Polychromasia Hypochromasia Poikilocytosis Basophilic Stippling Anisocytosis Microcytosis Macrocytosis Spherocytes Pappenheimer Bodies Sickle Cells Target Cells Tear Drop Cells Ovalocytes Stomatocytes [place] Bodies Echinocytes Acanthocytes (Spur) Rouleaux RBC Agglutinates Schistocytes RBC Morph Comment Sezary Cell PT 38.6 H INR 4.2 H Sodium Pending (136-145) mmol/L Potassium Pending (3.5-5.1) mmol/L Chloride Pending (98-107) mmol/L Carbon Dioxide Pending (21-32) mmol/L Anion Gap Pending (3-11) BUN Pending (7-18) mg/dl Creatinine Pending (0.6-1.2) mg/dl Est Cr Clr Drug Dosing Pending ml/min Est GFR ( Amer) Pending Est GFR (Non-Af Amer) Pending BUN/Creatinine Ratio Pending (10-20) Glucose Pending (70-99) mg/dl POC Glucose (70-99) POC Glucose (other) 112 H (70-99) mg/dl Lactate (0.4-2.0) mmol/L Calcium Pending (8.5-10.1) mg/dl Ionized Calcium (1.12-1.32) mmol/L Phosphorus Pending (2.5-4.9) mg/dl Magnesium (1.8-2.4) mg/dl Total Bilirubin (0.2-1) mg/dl Direct Bilirubin (0-0.2) mg/dl AST (15-37) U/L ALT (12-78) U/L Alkaline Phosphatase (45-117) U/L Total Protein (6.4-8.2) gm/dl Albumin Pending (3.4-5.0) gm/dl Lipase (73-393) U/L Nasal Screen MRSA (PCR) (Negative) Hepatitis A IgM Ab Hep Bs Antigen (Neg) Hep B Core IgM Ab Hepatitis C Antibody (Neg) HCV RNA Qual (TMA) Blood Type Antibody Screen Crossmatch 10/06/18 10/06/18 10/06/18 Range/Units 11:09 07:50 06:51 WBC 7.65 RBC 2.35 L Hgb 7.7 L Hct 23.0 L MCV 97.9 MCH 32.8 MCHC 33.5 RDW Std Deviation 68.4 H RDW Coeff of Michelle 20.2 H Plt Count 45 L MPV 11.8 H Immature Gran % (Auto) 0.3 Neut % (Auto) 79.9 Lymph % (Auto) 11.4 Young % (Auto) 8.4 Eos % (Auto) 0.0 Baso % (Auto) 0.0 Immature Gran # (Auto) 0.02 Neut # (Auto) 6.12 Lymph # (Auto) 0.87 L Young # (Auto) 0.64 H Eos # (Auto) 0.00 Baso # (Auto) 0.00 Absolute Nucleated RBC 0.02 H Nucleated RBC % (auto) 0.3 Neutrophils % (Manual) Band Neutrophils % Lymphocytes % (Manual) Prolymphocyte % Reactive Lymphs % (Man) Monocytes % (Manual) Eosinophils % (Manual) Basophils % (Manual) Metamyelocytes % (Man) Myelocytes % (Man) Promyelocytes % (Man) Blast Cells % (Manual) Plasma Cell % (Manual) Other Cells % Nucleated RBC % Neutrophils # (Manual) Band Neutrophils # Total Absolute Neuts Lymphocytes # (Manual) Prolymphocyte # Reactive Lymphs # Total Abs Lymphocytes Monocytes # (Manual) Eosinophils # (Manual) Basophils # (Manual) Metamyelocytes # (Man) Myelocytes # (Manual) Promyelocytes # (Man) Blast Cells # (Man) Plasma Cell # (Manual) Other Cells # Nucleated RBCs # (Man) Hypersegmented Neuts Hyposegmented Neuts Hypogranular Neuts Large Granular Lymphs # Lrg Granular Lymphs Hairy Cells Smudge Cells Toxic Granulation Toxic Vacuolation Dohle Bodies Bin Rods Platelet Estimate Hypogranular Platelets Clumped Platelets Giant Platelets Platelet Satelliting RBC Morphology Polychromasia 1+ Hypochromasia Present Poikilocytosis Basophilic Stippling Anisocytosis Present Microcytosis Macrocytosis Spherocytes Pappenheimer Bodies Sickle Cells Target Cells Tear Drop Cells Ovalocytes Stomatocytes Call[place] Bodies Echinocytes 2+ Acanthocytes (Spur) Rouleaux RBC Agglutinates Schistocytes RBC Morph Comment Sezary Cell PT Cancelled INR Cancelled Sodium (136-145) mmol/L Potassium (3.5-5.1) mmol/L Chloride (98-107) mmol/L Carbon Dioxide (21-32) mmol/L Anion Gap (3-11) BUN (7-18) mg/dl Creatinine (0.6-1.2) mg/dl Est Cr Clr Drug Dosing ml/min Est GFR ( Amer) Est GFR (Non-Af Amer) BUN/Creatinine Ratio (10-20) Glucose (70-99) mg/dl POC Glucose (70-99) POC Glucose (other) (70-99) mg/dl Lactate 13.9 H* (0.4-2.0) mmol/L Calcium (8.5-10.1) mg/dl Ionized Calcium (1.12-1.32) mmol/L Phosphorus (2.5-4.9) mg/dl Magnesium (1.8-2.4) mg/dl Total Bilirubin (0.2-1) mg/dl Direct Bilirubin (0-0.2) mg/dl AST (15-37) U/L ALT (12-78) U/L Alkaline Phosphatase (45-117) U/L Total Protein (6.4-8.2) gm/dl Albumin (3.4-5.0) gm/dl Lipase (73-393) U/L Nasal Screen MRSA (PCR) (Negative) Hepatitis A IgM Ab Hep Bs Antigen (Neg) Hep B Core IgM Ab Hepatitis C Antibody (Neg) HCV RNA Qual (TMA) Blood Type Antibody Screen Crossmatch 10/06/18 10/06/18 10/06/18 Range/Units 06:51 06:51 06:51 WBC 6.50 RBC 2.04 L Hgb 6.7 L* Hct 20.9 L* MCV 102.5 H D MCH 32.8 MCHC 32.1 RDW Std Deviation 72.1 H RDW Coeff of Michelle 20.2 H Plt Count 41 L MPV 10.9 H Immature Gran % (Auto) 0.2 Neut % (Auto) 77.8 Lymph % (Auto) 12.0 Young % (Auto) 9.8 Eos % (Auto) 0.2 Baso % (Auto) 0.0 Immature Gran # (Auto) 0.01 Neut # (Auto) 5.06 Lymph # (Auto) 0.78 L Young # (Auto) 0.64 H Eos # (Auto) 0.01 Baso # (Auto) 0.00 Absolute Nucleated RBC 0.02 H Nucleated RBC % (auto) 0.4 Neutrophils % (Manual) Band Neutrophils % Lymphocytes % (Manual) Prolymphocyte % Reactive Lymphs % (Man) Monocytes % (Manual) Eosinophils % (Manual) Basophils % (Manual) Metamyelocytes % (Man) Myelocytes % (Man) Promyelocytes % (Man) Blast Cells % (Manual) Plasma Cell % (Manual) Other Cells % Nucleated RBC % Neutrophils # (Manual) Band Neutrophils # Total Absolute Neuts Lymphocytes # (Manual) Prolymphocyte # Reactive Lymphs # Total Abs Lymphocytes Monocytes # (Manual) Eosinophils # (Manual) Basophils # (Manual) Metamyelocytes # (Man) Myelocytes # (Manual) Promyelocytes # (Man) Blast Cells # (Man) Plasma Cell # (Manual) Other Cells # Nucleated RBCs # (Man) Hypersegmented Neuts Hyposegmented Neuts Hypogranular Neuts Large Granular Lymphs # Lrg Granular Lymphs Hairy Cells Smudge Cells Toxic Granulation Toxic Vacuolation Dohle Bodies Bin Rods Platelet Estimate Hypogranular Platelets Clumped Platelets Giant Platelets Platelet Satelliting RBC Morphology Polychromasia 1+ Hypochromasia Present Poikilocytosis Basophilic Stippling Anisocytosis Microcytosis Macrocytosis Present Spherocytes Pappenheimer Bodies Sickle Cells Target Cells Tear Drop Cells Ovalocytes Stomatocytes Call[place] Bodies Echinocytes 1+ Acanthocytes (Spur) Rouleaux RBC Agglutinates Schistocytes RBC Morph Comment Sezary Cell PT INR Sodium (136-145) mmol/L Potassium (3.5-5.1) mmol/L Chloride (98-107) mmol/L Carbon Dioxide (21-32) mmol/L Anion Gap (3-11) BUN (7-18) mg/dl Creatinine (0.6-1.2) mg/dl Est Cr Clr Drug Dosing ml/min Est GFR ( Amer) Est GFR (Non-Af Amer) BUN/Creatinine Ratio (10-20) Glucose (70-99) mg/dl POC Glucose (70-99) POC Glucose (other) (70-99) mg/dl Lactate (0.4-2.0) mmol/L Calcium (8.5-10.1) mg/dl Ionized Calcium 0.92 L (1.12-1.32) mmol/L Phosphorus (2.5-4.9) mg/dl Magnesium (1.8-2.4) mg/dl Total Bilirubin (0.2-1) mg/dl Direct Bilirubin (0-0.2) mg/dl AST (15-37) U/L ALT (12-78) U/L Alkaline Phosphatase (45-117) U/L Total Protein (6.4-8.2) gm/dl Albumin (3.4-5.0) gm/dl Lipase (73-393) U/L Nasal Screen MRSA (PCR) (Negative) Hepatitis A IgM Ab Hep Bs Antigen Neg (Neg) Hep B Core IgM Ab Hepatitis C Antibody Prelim Pos A (Neg) HCV RNA Qual (TMA) Blood Type Antibody Screen Crossmatch 10/06/18 10/06/18 10/06/18 Range/Units 06:51 06:50 06:50 WBC RBC Hgb Hct MCV MCH MCHC RDW Std Deviation RDW Coeff of Michelle Plt Count MPV Immature Gran % (Auto) Neut % (Auto) Lymph % (Auto) Young % (Auto) Eos % (Auto) Baso % (Auto) Immature Gran # (Auto) Neut # (Auto) Lymph # (Auto) Young # (Auto) Eos # (Auto) Baso # (Auto) Absolute Nucleated RBC Nucleated RBC % (auto) Neutrophils % (Manual) Band Neutrophils % Lymphocytes % (Manual) Prolymphocyte % Reactive Lymphs % (Man) Monocytes % (Manual) Eosinophils % (Manual) Basophils % (Manual) Metamyelocytes % (Man) Myelocytes % (Man) Promyelocytes % (Man) Blast Cells % (Manual) Plasma Cell % (Manual) Other Cells % Nucleated RBC % Neutrophils # (Manual) Band Neutrophils # Total Absolute Neuts Lymphocytes # (Manual) Prolymphocyte # Reactive Lymphs # Total Abs Lymphocytes Monocytes # (Manual) Eosinophils # (Manual) Basophils # (Manual) Metamyelocytes # (Man) Myelocytes # (Manual) Promyelocytes # (Man) Blast Cells # (Man) Plasma Cell # (Manual) Other Cells # Nucleated RBCs # (Man) Hypersegmented Neuts Hyposegmented Neuts Hypogranular Neuts Large Granular Lymphs # Lrg Granular Lymphs Hairy Cells Smudge Cells Toxic Granulation Toxic Vacuolation Dohle Bodies Bin Rods Platelet Estimate Hypogranular Platelets Clumped Platelets Giant Platelets Platelet Satelliting RBC Morphology Polychromasia Hypochromasia Poikilocytosis Basophilic Stippling Anisocytosis Microcytosis Macrocytosis Spherocytes Pappenheimer Bodies Sickle Cells Target Cells Tear Drop Cells Ovalocytes Stomatocytes Call[place] Bodies Echinocytes Acanthocytes (Spur) Rouleaux RBC Agglutinates Schistocytes RBC Morph Comment Sezary Cell PT Cancelled INR Cancelled Sodium 135 L (136-145) mmol/L Potassium 5.6 H D (3.5-5.1) mmol/L Chloride 103 (98-107) mmol/L Carbon Dioxide 11 L (21-32) mmol/L Anion Gap 21.0 H (3-11) BUN 10 (7-18) mg/dl Creatinine 2.24 H D (0.6-1.2) mg/dl Est Cr Clr Drug Dosing 36.9 ml/min Est GFR ( Amer) 28.7 Est GFR (Non-Af Amer) 24.8 BUN/Creatinine Ratio 4.5 L (10-20) Glucose 101 H (70-99) mg/dl POC Glucose (70-99) POC Glucose (other) (70-99) mg/dl Lactate (0.4-2.0) mmol/L Calcium 7.2 L (8.5-10.1) mg/dl Ionized Calcium (1.12-1.32) mmol/L Phosphorus 6.5 H (2.5-4.9) mg/dl Magnesium 2.5 H (1.8-2.4) mg/dl Total Bilirubin 7.3 H (0.2-1) mg/dl Direct Bilirubin 5.2 H (0-0.2) mg/dl AST 6458 H (15-37) U/L ALT 1033 H (12-78) U/L Alkaline Phosphatase 139 H (45-117) U/L Total Protein 5.7 L D (6.4-8.2) gm/dl Albumin 2.0 L (3.4-5.0) gm/dl Lipase (73-393) U/L Nasal Screen MRSA (PCR) (Negative) Hepatitis A IgM Ab Pending Hep Bs Antigen (Neg) Hep B Core IgM Ab Pending Hepatitis C Antibody (Neg) HCV RNA Qual (TMA) Pending Blood Type Antibody Screen Crossmatch 10/06/18 10/06/18 10/05/18 Range/Units 02:50 02:03 23:47 WBC 6.23 RBC 1.66 L Hgb 6.3 L* 5.4 L* Hct 20.9 L* 18.1 L* MCV 109.0 H MCH 32.5 MCHC 29.8 L RDW Std Deviation 77.7 H RDW Coeff of Michelle 19.9 H Plt Count 37 L MPV 12.3 H Immature Gran % (Auto) 0.3 Neut % (Auto) 74.3 Lymph % (Auto) 13.0 Young % (Auto) 12.2 Eos % (Auto) 0.2 Baso % (Auto) 0.0 Immature Gran # (Auto) 0.02 Neut # (Auto) 4.63 Lymph # (Auto) 0.81 L Young # (Auto) 0.76 H Eos # (Auto) 0.01 Baso # (Auto) 0.00 Absolute Nucleated RBC 0.08 H Nucleated RBC % (auto) 1.2 Neutrophils % (Manual) Band Neutrophils % Lymphocytes % (Manual) Prolymphocyte % Reactive Lymphs % (Man) Monocytes % (Manual) Eosinophils % (Manual) Basophils % (Manual) Metamyelocytes % (Man) Myelocytes % (Man) Promyelocytes % (Man) Blast Cells % (Manual) Plasma Cell % (Manual) Other Cells % Nucleated RBC % Neutrophils # (Manual) Band Neutrophils # Total Absolute Neuts Lymphocytes # (Manual) Prolymphocyte # Reactive Lymphs # Total Abs Lymphocytes Monocytes # (Manual) Eosinophils # (Manual) Basophils # (Manual) Metamyelocytes # (Man) Myelocytes # (Manual) Promyelocytes # (Man) Blast Cells # (Man) Plasma Cell # (Manual) Other Cells # Nucleated RBCs # (Man) Hypersegmented Neuts Hyposegmented Neuts Hypogranular Neuts Large Granular Lymphs # Lrg Granular Lymphs Hairy Cells Smudge Cells Toxic Granulation Toxic Vacuolation 1+ Dohle Bodies Bin Rods Platelet Estimate Hypogranular Platelets Clumped Platelets Giant Platelets 1+ Platelet Satelliting RBC Morphology Polychromasia 1+ Hypochromasia Poikilocytosis Basophilic Stippling Anisocytosis Microcytosis Macrocytosis Spherocytes Pappenheimer Bodies Sickle Cells Target Cells Tear Drop Cells Ovalocytes Stomatocytes Call[place] Bodies Echinocytes 2+ Acanthocytes (Spur) Rouleaux RBC Agglutinates Schistocytes RBC Morph Comment Sezary Cell PT INR Sodium (136-145) mmol/L Potassium (3.5-5.1) mmol/L Chloride (98-107) mmol/L Carbon Dioxide (21-32) mmol/L Anion Gap (3-11) BUN (7-18) mg/dl Creatinine (0.6-1.2) mg/dl Est Cr Clr Drug Dosing ml/min Est GFR ( Amer) Est GFR (Non-Af Amer) BUN/Creatinine Ratio (10-20) Glucose (70-99) mg/dl POC Glucose 120 H (70-99) POC Glucose (other) (70-99) mg/dl Lactate (0.4-2.0) mmol/L Calcium (8.5-10.1) mg/dl Ionized Calcium (1.12-1.32) mmol/L Phosphorus (2.5-4.9) mg/dl Magnesium (1.8-2.4) mg/dl Total Bilirubin (0.2-1) mg/dl Direct Bilirubin (0-0.2) mg/dl AST (15-37) U/L ALT (12-78) U/L Alkaline Phosphatase (45-117) U/L Total Protein (6.4-8.2) gm/dl Albumin (3.4-5.0) gm/dl Lipase (73-393) U/L Nasal Screen MRSA (PCR) (Negative) Hepatitis A IgM Ab Hep Bs Antigen (Neg) Hep B Core IgM Ab Hepatitis C Antibody (Neg) HCV RNA Qual (TMA) Blood Type Antibody Screen Crossmatch 10/05/18 10/05/18 10/05/18 Range/Units 23:18 23:15 20:14 WBC 6.38 RBC 2.16 L Hgb 7.3 L Hct 23.2 L MCV 107.4 H D MCH 33.8 MCHC 31.5 L RDW Std Deviation 77.2 H RDW Coeff of Michelle 19.8 H Plt Count 55 L MPV 11.6 H Immature Gran % (Auto) 0.6 Neut % (Auto) 79.2 Lymph % (Auto) 6.1 Young % (Auto) 13.6 Eos % (Auto) 0.3 Baso % (Auto) 0.2 Immature Gran # (Auto) 0.04 H Neut # (Auto) 5.05 Lymph # (Auto) 0.39 L Young # (Auto) 0.87 H Eos # (Auto) 0.02 Baso # (Auto) 0.01 Absolute Nucleated RBC 0.07 H Nucleated RBC % (auto) 1.1 Neutrophils % (Manual) Band Neutrophils % Lymphocytes % (Manual) Prolymphocyte % Reactive Lymphs % (Man) Monocytes % (Manual) Eosinophils % (Manual) Basophils % (Manual) Metamyelocytes % (Man) Myelocytes % (Man) Promyelocytes % (Man) Blast Cells % (Manual) Plasma Cell % (Manual) Other Cells % Nucleated RBC % Neutrophils # (Manual) Band Neutrophils # Total Absolute Neuts Lymphocytes # (Manual) Prolymphocyte # Reactive Lymphs # Total Abs Lymphocytes Monocytes # (Manual) Eosinophils # (Manual) Basophils # (Manual) Metamyelocytes # (Man) Myelocytes # (Manual) Promyelocytes # (Man) Blast Cells # (Man) Plasma Cell # (Manual) Other Cells # Nucleated RBCs # (Man) Hypersegmented Neuts Hyposegmented Neuts Hypogranular Neuts Large Granular Lymphs # Lrg Granular Lymphs Hairy Cells Smudge Cells Toxic Granulation Toxic Vacuolation 2+ Dohle Bodies Bin Rods Platelet Estimate Hypogranular Platelets Clumped Platelets Giant Platelets 1+ Platelet Satelliting RBC Morphology Polychromasia 1+ Hypochromasia Poikilocytosis Basophilic Stippling Anisocytosis Microcytosis Macrocytosis Spherocytes Pappenheimer Bodies Sickle Cells Target Cells Tear Drop Cells Ovalocytes Stomatocytes Call[place] Bodies Echinocytes 2+ Acanthocytes (Spur) Rouleaux RBC Agglutinates Schistocytes RBC Morph Comment Sezary Cell PT INR Sodium (136-145) mmol/L Potassium (3.5-5.1) mmol/L Chloride (98-107) mmol/L Carbon Dioxide (21-32) mmol/L Anion Gap (3-11) BUN (7-18) mg/dl Creatinine (0.6-1.2) mg/dl Est Cr Clr Drug Dosing ml/min Est GFR ( Amer) Est GFR (Non-Af Amer) BUN/Creatinine Ratio (10-20) Glucose (70-99) mg/dl POC Glucose 70 63 L* (70-99) POC Glucose (other) (70-99) mg/dl Lactate (0.4-2.0) mmol/L Calcium (8.5-10.1) mg/dl Ionized Calcium (1.12-1.32) mmol/L Phosphorus (2.5-4.9) mg/dl Magnesium (1.8-2.4) mg/dl Total Bilirubin (0.2-1) mg/dl Direct Bilirubin (0-0.2) mg/dl AST (15-37) U/L ALT (12-78) U/L Alkaline Phosphatase (45-117) U/L Total Protein (6.4-8.2) gm/dl Albumin (3.4-5.0) gm/dl Lipase (73-393) U/L Nasal Screen MRSA (PCR) (Negative) Hepatitis A IgM Ab Hep Bs Antigen (Neg) Hep B Core IgM Ab Hepatitis C Antibody (Neg) HCV RNA Qual (TMA) Blood Type Antibody Screen Crossmatch 10/05/18 10/05/18 10/05/18 Range/Units 20:06 19:47 19:46 WBC RBC Hgb Hct MCV MCH MCHC RDW Std Deviation RDW Coeff of Michelle Plt Count MPV Immature Gran % (Auto) Neut % (Auto) Lymph % (Auto) Young % (Auto) Eos % (Auto) Baso % (Auto) Immature Gran # (Auto) Neut # (Auto) Lymph # (Auto) Young # (Auto) Eos # (Auto) Baso # (Auto) Absolute Nucleated RBC Nucleated RBC % (auto) Neutrophils % (Manual) Band Neutrophils % Lymphocytes % (Manual) Prolymphocyte % Reactive Lymphs % (Man) Monocytes % (Manual) Eosinophils % (Manual) Basophils % (Manual) Metamyelocytes % (Man) Myelocytes % (Man) Promyelocytes % (Man) Blast Cells % (Manual) Plasma Cell % (Manual) Other Cells % Nucleated RBC % Neutrophils # (Manual) Band Neutrophils # Total Absolute Neuts Lymphocytes # (Manual) Prolymphocyte # Reactive Lymphs # Total Abs Lymphocytes Monocytes # (Manual) Eosinophils # (Manual) Basophils # (Manual) Metamyelocytes # (Man) Myelocytes # (Manual) Promyelocytes # (Man) Blast Cells # (Man) Plasma Cell # (Manual) Other Cells # Nucleated RBCs # (Man) Hypersegmented Neuts Hyposegmented Neuts Hypogranular Neuts Large Granular Lymphs # Lrg Granular Lymphs Hairy Cells Smudge Cells Toxic Granulation Toxic Vacuolation Dohle Bodies Bin Rods Platelet Estimate Hypogranular Platelets Clumped Platelets Giant Platelets Platelet Satelliting RBC Morphology Polychromasia Hypochromasia Poikilocytosis Basophilic Stippling Anisocytosis Microcytosis Macrocytosis Spherocytes Pappenheimer Bodies Sickle Cells Target Cells Tear Drop Cells Ovalocytes Stomatocytes Call[place] Bodies Echinocytes Acanthocytes (Spur) Rouleaux RBC Agglutinates Schistocytes RBC Morph Comment Sezary Cell PT INR Sodium (136-145) mmol/L Potassium (3.5-5.1) mmol/L Chloride (98-107) mmol/L Carbon Dioxide (21-32) mmol/L Anion Gap (3-11) BUN (7-18) mg/dl Creatinine (0.6-1.2) mg/dl Est Cr Clr Drug Dosing ml/min Est GFR ( Amer) Est GFR (Non-Af Amer) BUN/Creatinine Ratio (10-20) Glucose (70-99) mg/dl POC Glucose 99 47 L* 51 L* (70-99) POC Glucose (other) (70-99) mg/dl Lactate (0.4-2.0) mmol/L Calcium (8.5-10.1) mg/dl Ionized Calcium (1.12-1.32) mmol/L Phosphorus (2.5-4.9) mg/dl Magnesium (1.8-2.4) mg/dl Total Bilirubin (0.2-1) mg/dl Direct Bilirubin (0-0.2) mg/dl AST (15-37) U/L ALT (12-78) U/L Alkaline Phosphatase (45-117) U/L Total Protein (6.4-8.2) gm/dl Albumin (3.4-5.0) gm/dl Lipase (73-393) U/L Nasal Screen MRSA (PCR) (Negative) Hepatitis A IgM Ab Hep Bs Antigen (Neg) Hep B Core IgM Ab Hepatitis C Antibody (Neg) HCV RNA Qual (TMA) Blood Type Antibody Screen Crossmatch 10/05/18 10/05/18 10/05/18 Range/Units 18:56 18:50 18:30 WBC Cancelled RBC Cancelled Hgb Cancelled Hct Cancelled MCV Cancelled MCH Cancelled MCHC Cancelled RDW Std Deviation Cancelled RDW Coeff of Michelle Cancelled Plt Count Cancelled MPV Cancelled Immature Gran % (Auto) Cancelled Neut % (Auto) Cancelled Lymph % (Auto) Cancelled Young % (Auto) Cancelled Eos % (Auto) Cancelled Baso % (Auto) Cancelled Immature Gran # (Auto) Cancelled Neut # (Auto) Cancelled Lymph # (Auto) Cancelled Young # (Auto) Cancelled Eos # (Auto) Cancelled Baso # (Auto) Cancelled Absolute Nucleated RBC Cancelled Nucleated RBC % (auto) Cancelled Neutrophils % (Manual) Cancelled Band Neutrophils % Cancelled Lymphocytes % (Manual) Cancelled Prolymphocyte % Cancelled Reactive Lymphs % (Man) Cancelled Monocytes % (Manual) Cancelled Eosinophils % (Manual) Cancelled Basophils % (Manual) Cancelled Metamyelocytes % (Man) Cancelled Myelocytes % (Man) Cancelled Promyelocytes % (Man) Cancelled Blast Cells % (Manual) Cancelled Plasma Cell % (Manual) Cancelled Other Cells % Cancelled Nucleated RBC % Cancelled Neutrophils # (Manual) Cancelled Band Neutrophils # Cancelled Total Absolute Neuts Cancelled Lymphocytes # (Manual) Cancelled Prolymphocyte # Cancelled Reactive Lymphs # Cancelled Total Abs Lymphocytes Cancelled Monocytes # (Manual) Cancelled Eosinophils # (Manual) Cancelled Basophils # (Manual) Cancelled Metamyelocytes # (Man) Cancelled Myelocytes # (Manual) Cancelled Promyelocytes # (Man) Cancelled Blast Cells # (Man) Cancelled Plasma Cell # (Manual) Cancelled Other Cells # Cancelled Nucleated RBCs # (Man) Cancelled Hypersegmented Neuts Cancelled Hyposegmented Neuts Cancelled Hypogranular Neuts Cancelled Large Granular Lymphs Cancelled # Lrg Granular Lymphs Cancelled Hairy Cells Cancelled Smudge Cells Cancelled Toxic Granulation Cancelled Toxic Vacuolation Cancelled Dohle Bodies Cancelled Bin Rods Cancelled Platelet Estimate Cancelled Hypogranular Platelets Cancelled Clumped Platelets Cancelled Giant Platelets Cancelled Platelet Satelliting Cancelled RBC Morphology Cancelled Polychromasia Cancelled Hypochromasia Cancelled Poikilocytosis Cancelled Basophilic Stippling Cancelled Anisocytosis Cancelled Microcytosis Cancelled Macrocytosis Cancelled Spherocytes Cancelled Pappenheimer Bodies Cancelled Sickle Cells Cancelled Target Cells Cancelled Tear Drop Cells Cancelled Ovalocytes Cancelled Stomatocytes Cancelled [place] Bodies Cancelled Echinocytes Cancelled Acanthocytes (Spur) Cancelled Rouleaux Cancelled RBC Agglutinates Cancelled Schistocytes Cancelled RBC Morph Comment Cancelled Sezary Cell Cancelled PT INR Sodium (136-145) mmol/L Potassium (3.5-5.1) mmol/L Chloride (98-107) mmol/L Carbon Dioxide (21-32) mmol/L Anion Gap (3-11) BUN (7-18) mg/dl Creatinine (0.6-1.2) mg/dl Est Cr Clr Drug Dosing ml/min Est GFR ( Amer) Est GFR (Non-Af Amer) BUN/Creatinine Ratio (10-20) Glucose (70-99) mg/dl POC Glucose (70-99) POC Glucose (other) (70-99) mg/dl Lactate (0.4-2.0) mmol/L Calcium (8.5-10.1) mg/dl Ionized Calcium (1.12-1.32) mmol/L Phosphorus (2.5-4.9) mg/dl Magnesium (1.8-2.4) mg/dl Total Bilirubin (0.2-1) mg/dl Direct Bilirubin (0-0.2) mg/dl AST (15-37) U/L ALT (12-78) U/L Alkaline Phosphatase (45-117) U/L Total Protein (6.4-8.2) gm/dl Albumin (3.4-5.0) gm/dl Lipase 279 (73-393) U/L Nasal Screen MRSA (PCR) Negative (Negative) Hepatitis A IgM Ab Hep Bs Antigen (Neg) Hep B Core IgM Ab Hepatitis C Antibody (Neg) HCV RNA Qual (TMA) Blood Type Antibody Screen Crossmatch 10/04/18 Range/Units 19:01 WBC RBC Hgb Hct MCV MCH MCHC RDW Std Deviation RDW Coeff of Michelle Plt Count MPV Immature Gran % (Auto) Neut % (Auto) Lymph % (Auto) Young % (Auto) Eos % (Auto) Baso % (Auto) Immature Gran # (Auto) Neut # (Auto) Lymph # (Auto) Young # (Auto) Eos # (Auto) Baso # (Auto) Absolute Nucleated RBC Nucleated RBC % (auto) Neutrophils % (Manual) Band Neutrophils % Lymphocytes % (Manual) Prolymphocyte % Reactive Lymphs % (Man) Monocytes % (Manual) Eosinophils % (Manual) Basophils % (Manual) Metamyelocytes % (Man) Myelocytes % (Man) Promyelocytes % (Man) Blast Cells % (Manual) Plasma Cell % (Manual) Other Cells % Nucleated RBC % Neutrophils # (Manual) Band Neutrophils # Total Absolute Neuts Lymphocytes # (Manual) Prolymphocyte # Reactive Lymphs # Total Abs Lymphocytes Monocytes # (Manual) Eosinophils # (Manual) Basophils # (Manual) Metamyelocytes # (Man) Myelocytes # (Manual) Promyelocytes # (Man) Blast Cells # (Man) Plasma Cell # (Manual) Other Cells # Nucleated RBCs # (Man) Hypersegmented Neuts Hyposegmented Neuts Hypogranular Neuts Large Granular Lymphs # Lrg Granular Lymphs Hairy Cells Smudge Cells Toxic Granulation Toxic Vacuolation Dohle Bodies Bin Rods Platelet Estimate Hypogranular Platelets Clumped Platelets Giant Platelets Platelet Satelliting RBC Morphology Polychromasia Hypochromasia Poikilocytosis Basophilic Stippling Anisocytosis Microcytosis Macrocytosis Spherocytes Pappenheimer Bodies Sickle Cells Target Cells Tear Drop Cells Ovalocytes Stomatocytes [place] Bodies Echinocytes Acanthocytes (Spur) Rouleaux RBC Agglutinates Schistocytes RBC Morph Comment Sezary Cell PT INR Sodium (136-145) mmol/L Potassium (3.5-5.1) mmol/L Chloride (98-107) mmol/L Carbon Dioxide (21-32) mmol/L Anion Gap (3-11) BUN (7-18) mg/dl Creatinine (0.6-1.2) mg/dl Est Cr Clr Drug Dosing ml/min Est GFR ( Amer) Est GFR (Non-Af Amer) BUN/Creatinine Ratio (10-20) Glucose (70-99) mg/dl POC Glucose (70-99) POC Glucose (other) (70-99) mg/dl Lactate (0.4-2.0) mmol/L Calcium (8.5-10.1) mg/dl Ionized Calcium (1.12-1.32) mmol/L Phosphorus (2.5-4.9) mg/dl Magnesium (1.8-2.4) mg/dl Total Bilirubin (0.2-1) mg/dl Direct Bilirubin (0-0.2) mg/dl AST (15-37) U/L ALT (12-78) U/L Alkaline Phosphatase (45-117) U/L Total Protein (6.4-8.2) gm/dl Albumin (3.4-5.0) gm/dl Lipase (73-393) U/L Nasal Screen MRSA (PCR) (Negative) Hepatitis A IgM Ab Hep Bs Antigen (Neg) Hep B Core IgM Ab Hepatitis C Antibody (Neg) HCV RNA Qual (TMA) Blood Type A Positive Antibody Screen NEGATIVE Crossmatch See Detail Medications Administered Home Medications Medication Instructions Recorded Confirmed Last Taken pantoprazole [Protonix] 40 mg PO DAILY 28 Days #28 tab 09/16/18 10/04/18 Unknown Potassium Tab 1 tab PO DAILY 10/04/18 10/04/18 Unknown folic acid 1 mg PO DAILY 10/04/18 10/04/18 Unknown magnesium oxide 400 mg PO DAILY 10/04/18 10/04/18 Unknown penicillin V potassium 500 mg PO QID 10/04/18 10/04/18 10/04/18 ranitidine HCl 150 mg PO HS 10/04/18 10/04/18 Unknown topiramate [Topamax] 100 mg PO BID 10/04/18 10/04/18 Unknown Active Medications Generic Name Dose Route Start Last Admin Trade Name Freq PRN Reason Stop Dose Admin Thiamine HCl 100 mg/ Syringe 10 mls @ 2 mls/hr 10/04/18 22:15 10/06/18 09:48 IV 11/03/18 22:14 2 mls/hr DAILY HUGH Administration Ceftriaxone Sodium 2,000 mg/ 70 mls @ 140 mls/hr 10/05/18 00:00 10/06/18 01:30 Dextrose IV 10/15/18 00:00 Infused Q24H HUGH Infusion Protocol Dexmedetomidine HCl 200 mcg/ 50 mls @ 0 mls/hr 10/05/18 19:45 10/06/18 00:00 Sodium Chloride IV 10/09/18 19:44 0 mcg/kg/hr .Q0M HUGH 0 mls/hr Titration Protocol 0 MCG/KG/HR Parenteral Electrolytes 1,000 mls @ 80 mls/hr 10/05/18 20:00 10/06/18 10:16 Normosol-R IV 11/04/18 19:59 80 mls/hr .[id number] HUGH Administration Norepinephrine Bitartrate 8 mg 508 mls @ 63.25 mls/hr 10/06/18 02:30 10/06/18 15:07 / Dextrose IV 11/05/18 02:29 0.2 mcg/kg/min .Q8H2M HUGH 63.3 mls/hr Titration Protocol 0.2 MCG/KG/MIN Folic Acid 1 mg/ Syringe 10 mls @ 5 mls/min 10/06/18 10:45 10/06/18 10:46 IV 11/05/18 10:44 5 mls/min QAM HUGH Administration Octreotide Acetate 500 mcg/ 105 mls @ 10 mls/hr 10/06/18 14:30 10/06/18 14:49 Sodium Chloride IV 11/05/18 14:29 10 mls/hr .[id number] HUGH Administration Magnesium Oxide 400 mg 10/05/18 09:00 10/06/18 08:45 Mag-Ox PO 11/04/18 08:59 Not Given DAILY HUGH Propranolol HCl 10 mg 10/05/18 21:00 10/06/18 13:02 Inderal PO 11/04/18 20:59 Not Given TID HUGH Ranitidine HCl 150 mg 10/05/18 21:00 10/05/18 20:56 Zantac PO 11/04/18 20:59 150 mg HS HUGH Administration Topiramate 100 mg 10/05/18 09:00 10/06/18 08:45 Topamax PO 11/04/18 08:59 Not Given BID HUGH Critical Care Time Critical Care Time: Yes Total Critical Care Time: 50
--- NOTE | 2018-10-06 15:03 | Gastroenterology Progress Note ---
Date of Service October 06, 2018 Cesar LOUIS was consulted on this pt. After review of record, it was noted this is a [facility] pt. ICU team was updated. We contacted [facility] (Rachel) who is to evaluate the pt today.
--- NOTE | 2018-10-06 15:12 | Nephrology Consultation ---
Date of Consultation October 06, 2018 Assessment & Plan (1) Acute kidney injury: 48-year-old female with acute kidney injury, hyperkalemia and metabolic acidosis in the setting alcohol withdrawal seizure, cirrhosis, coagulopathy and elevated LFTs. Since admission her blood pressure has been persistently low. No urinalysis available from this admission however prior urinalysis showed trace proteinuria and microscopic hematuria. Rapid rise in creatinine could be secondary to dense ATN with persistent hypotension versus hepatorenal syndrome. postrenal obstruction seems unlikely --check stat renal panel, urinalysis and renal ultrasound --consider changing IV fluid to Na bicarb drip --recommend conservative approach with Midodrine, octreotide and albumin --kayexalate 30 gm po x 1 dose if K remain >5.5, follow low-potassium diet. --dose medications for GFR less than 10 --if no improvement, would not recommend SALES AND MARKETING ASSISTANT , considering ESLD, overall prognosis guarded and unfortunately there is not much to offer. Will follow Thank you for the consultation. (2) Hyperkalemia: (3) Seizure: (4) Liver cirrhosis, alcoholic: (5) Elevated LFTs: History of Present Illness Reason for Consultation: Acute kidney injury, metabolic acidosis and hyperkalemia Attending Physician: Alex Hayden DO History of Present Illness Mary Barros is a 48yo C female with past medical history significant for ethanol abuse and cirrhosis admitted to the hospital with alcohol withdrawal seizure. Nephrology consult was requested as she had developed acute kidney injury. Electronic medical records including labs and imaging are reviewed in detail during patient's visit. Mary has longstanding history of alcohol abuse associated with multiple significant medical complications related to alcohol abuse including cirrhosis of liver, gastritis, prior history of pancreatitis and recurrent admission for alcohol withdrawal seizures. She presents on 10/04/18 after having 3 seizures at home on the day prior to admission. On the day of admission she developed nausea, vomiting, hematemesis or and presented to the hospital for further evaluation. She was admitted for alcohol withdrawal seizure and being treated accordingly. She has no known history of chronic kidney disease, on admission renal function was normal, creatinine was 0.8 on 10/05/2018. She developed acute kidney injury and in less than 24 hours creatinine increased up to 2.6 this morning. Potassium elevated at 5.7. has metabolic acidosis. She was also found to be anemic and currently getting 3rd unit of PRBC. She has coagulopathy with elevated INR and LFTs where significantly elevated. Has been persistently hypotensive since admission. She is awake but lethergic and barely answering any questions. Allergies Allergy/AdvReac Type Severity Reaction Status Date / Time acetaminophen [From Tylenol] AdvReac Intermediate HX Verified 10/04/18 19:22 CIRRHOSIS NSAIDS (Non-Steroidal AdvReac Intermediate HX Verified 10/04/18 19:22 Anti-Inflamma CIRRHOSIS phenytoin AdvReac Intermediate LOSS OF Verified 10/04/18 19:22 EQUILIBRIUM Home Medications Home Medications Medication Instructions Recorded Confirmed Type pantoprazole [Protonix] 40 mg PO DAILY 28 Days #28 tab 09/16/18 10/04/18 Rx Potassium Tab 1 tab PO DAILY 10/04/18 10/04/18 History folic acid 1 mg PO DAILY 10/04/18 10/04/18 History magnesium oxide 400 mg PO DAILY 10/04/18 10/04/18 History penicillin V potassium 500 mg PO QID 10/04/18 10/04/18 History ranitidine HCl 150 mg PO HS 10/04/18 10/04/18 History topiramate [Topamax] 100 mg PO BID 10/04/18 10/04/18 History Patient History Medical History Hypertension (Acute) Hypokalemia Seizures Pancreatitis (Chronic) Schizoaffective disorder (Chronic) Arthritis Depression Liver disease Thyroid disease Gastritis Liver cancer (Chronic) Alcoholism Acute recurrent pancreatitis (Acute Unknown) Viral hepatitis C (Chronic Unknown) Chronic pancreatitis (Chronic Unknown) Cirrhosis, alcoholic (Chronic) Chronic renal failure, stage 3 (moderate) (Chronic) Polysubstance abuse (Acute) Depression with suicidal ideation (Acute) TIA (transient ischemic attack) (Acute) Pancytopenia (Acute) Cholecystectomy planned Cholecystectomy planned Hyponatremia Surgical History History of appendectomy Family History Mother Multiple sclerosis Father , age 52 Acute coronary occlusion without mycocardial infarction Social History Preferred Language: [place] Communication Ability: Impaired Visual Impairment: No Limitations 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 Maker Required: No Beliefs That Will Affect Care: None marital status: Current Living Situation: Significant Other current occupational status: unemployed and disabled Other Information That Helps Us Care for You: No Feels Safe at Home: Yes Safety Concerns: Feels Safe At This Time Smoking Status: Current every day smoker Tobacco Type: cigarettes Cigarettes Per Day: 20 Do You Dip or Chew Tobacco: No Second Hand Exposure: No Tobacco Cessation Education Requested by Patient: No Hx Alcohol Use: Yes Alcohol type: beer Hx Substance Use: Yes (beer and cigarettes) substance use type: does not use Last Used Substance: Just Prior to Arrival Review of Systems Review of Systems: All systems reviewed & are unremarkable except as noted in HPI & below Physical Exam Physical Exam: GENERAL: Middle-aged female, Awake, lethergic. HEENT: Atraumatic, normocephalic. NECK: Supple, no JVD, no carotid bruit appreciated. ENT: No sinus tenderness MOUTH and THROAT: dry oral mucosa, RESPIRATORY: Normal breathing efforts, clear to auscultation bilaterally, no wheezes or rales. CARDIOVASCULAR: S1, S2 normal, rate rhythm regular. ABDOMEN: Soft, nontender, positive bowel sound. MUSCULOSKELETAL: No joint swelling, erythema SKIN: No skin rash EXTREMITY: No lower extremity edema NEURO: could not be assessed. Results & Data Vital Signs (Past 12 Hours) Vital Signs Temp Pulse Resp BP Pulse Ox 10/06/18 14:48 35.8 C L 84 16 84/57 L 95 10/06/18 14:31 35.7 C L 87 16 89/61 L 94 10/06/18 14:15 87 15 87/51 L 94 10/06/18 14:00 84 13 91/59 L 95 10/06/18 13:45 84 14 96/61 L 95 10/06/18 13:30 84 16 82/59 L 95 10/06/18 13:15 82 13 82/55 L 95 10/06/18 13:00 82 14 90/47 L 94 10/06/18 12:45 81 13 84/56 L 95 10/06/18 12:30 82 14 82/58 L 95 10/06/18 12:15 78 13 85/61 L 95 10/06/18 12:00 79 14 80/57 L 95 10/06/18 11:45 79 13 81/52 L 97 10/06/18 11:30 80 15 77/49 L 95 10/06/18 11:15 80 14 83/52 L 10/06/18 11:00 79 13 80/53 L 96 10/06/18 10:45 79 13 83/51 L 96 10/06/18 10:30 80 16 78/58 L 97 10/06/18 10:15 34.9 C L 80 16 75/51 L 95 10/06/18 10:01 34.9 C L 80 16 82/44 L 98 10/06/18 09:01 34.8 C L 84 16 115/48 L 93 10/06/18 08:31 34.9 C L 85 18 103/45 L 96 10/06/18 08:16 34.9 C L 83 18 103/52 L 100 10/06/18 07:55 85 16 105/51 L 99 10/06/18 06:30 83 18 98/49 L 100 10/06/18 06:15 83 91/46 L 100 10/06/18 06:00 82 89/45 L 100 10/06/18 05:46 82 96/44 L 100 10/06/18 05:30 82 94/43 L 100 10/06/18 05:16 82 85/40 L 100 10/06/18 05:00 83 85/46 L 100 10/06/18 04:45 83 86/49 L 100 10/06/18 04:30 83 73/34 L 99 10/06/18 04:16 83 66/42 L 100 10/06/18 04:13 83 18 66/42 L 100 10/06/18 04:00 84 86/45 L 100 10/06/18 03:58 84 17 86/45 L 100 10/06/18 03:53 83 82/42 L 99 10/06/18 03:50 84 61/43 L 100 10/06/18 03:46 84 67/40 L 99 10/06/18 03:43 85 24 73/34 L 99 10/06/18 03:31 85 73/34 L 100 10/06/18 03:15 84 73/43 L
[2018-10-06] MEDS: PANTOprazole 40 MG in DEXTROSE 5% 100 ML IV SCH ×3 (15:26→23:10)
--- NOTE | 2018-10-06 15:36 | Gastrointestinal Consultation ---
Date of Consultation October 06, 2018 Assessment & Plan (1) Anemia: No vomiting of blood nor blood per rectum so no evidence of rebeka GI bleeding. Retroperitoneal bleed in the differential. Place NG to see if any blood in upper GI tract. No hx of varices so feel octreotide is optional. Continue PPI for PUD. Transfuse prn. acute liver failure--rising INR and LFT suggestive of acute liver failure on top of known cirrhosis---very poor prognosis---could be from sepsis, if from acetaminophen she is out of window that meds would help. Continue supporitve care. Not a liver transplant candidate given active ETOH use. [facility] critical care MD speak with Dr Hayden recommending family be notified about high mortality and I agree. obtundation--? from meds given for seizures--check ammonia level also as that has been somewhat elevated in the past cirrhois--ETOH and ? hep C ARF--renal consulted but apparently not a dialysi candidate elevated lactic acid--could be septic, could have ischemia bowel. supportive care she is not a surgical candidate. Discussed with Dr Hayden that she does not seem to be actively GI bleeding and even if bleeding that is not explaining everything else going on. Do not feel EGD is going to help much. Will place NG and see what is in stomach. With regard to ischemic gut possibility of retroperitoneal bleed discussed she is not a surgical candidate and so could do CT a/p but not sure it would make much difference. History of Present Illness Reason for Consultation: ? GI bleeding Requesting Physician: DR Hayden Attending Physician: Alex Hayden, DO History of Present Illness cc history from chart and nursing staff and Critical care physician. Pt is obtunded HPI Pt known to our service from repeated admissions of ETOH withdrawal or other related ETOH complications. He has had hemeatemsis in past and most recent EGD 02/2018 normal with no varices. She comes in again wiht presumed withdrawal and had seizures treated. She is currently obtuned. She is hypotensive on pressors, has marked elevation in INR and LFTS. Hgb drop from 7s to 5.4 but no vomiting or stool output. She is drinking a case of 8% beer daily U/s times two this admit small ascites, cirrhosis. KUB 10/05 ? ileus. Stool heme neg 10/05. Report of dark brown emesis prior to admit in chart. Allergies Allergy/AdvReac Type Severity Reaction Status Date / Time acetaminophen [From Tylenol] AdvReac Intermediate HX Verified 10/04/18 19:22 CIRRHOSIS NSAIDS (Non-Steroidal AdvReac Intermediate HX Verified 10/04/18 19:22 Anti-Inflamma CIRRHOSIS phenytoin AdvReac Intermediate LOSS OF Verified 10/04/18 19:22 EQUILIBRIUM Home Medications Home Medications Medication Instructions Recorded Confirmed Type pantoprazole [Protonix] 40 mg PO DAILY 28 Days #28 tab 09/16/18 10/04/18 Rx Potassium Tab 1 tab PO DAILY 10/04/18 10/04/18 History folic acid 1 mg PO DAILY 10/04/18 10/04/18 History magnesium oxide 400 mg PO DAILY 10/04/18 10/04/18 History penicillin V potassium 500 mg PO QID 10/04/18 10/04/18 History ranitidine HCl 150 mg PO HS 10/04/18 10/04/18 History topiramate [Topamax] 100 mg PO BID 10/04/18 10/04/18 History Patient History Medical History Hypertension (Acute) Hypokalemia Seizures Pancreatitis (Chronic) Schizoaffective disorder (Chronic) Arthritis Depression Liver disease Thyroid disease Gastritis Liver cancer (Chronic) Alcoholism Acute recurrent pancreatitis (Acute Unknown) Viral hepatitis C (Chronic Unknown) Chronic pancreatitis (Chronic Unknown) Cirrhosis, alcoholic (Chronic) Chronic renal failure, stage 3 (moderate) (Chronic) Polysubstance abuse (Acute) Depression with suicidal ideation (Acute) TIA (transient ischemic attack) (Acute) Pancytopenia (Acute) Cholecystectomy planned Cholecystectomy planned Hyponatremia Surgical History History of appendectomy Family History Mother Multiple sclerosis Father , age 52 Acute coronary occlusion without mycocardial infarction Social History Preferred Language: [place] Communication Ability: Impaired Visual Impairment: No Limitations 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 Required: No Beliefs That Will Affect Care: None marital status: Current Living Situation: Significant Other current occupational status: unemployed and disabled Other Information That Helps Us Care for You: No Feels Safe at Home: Yes Safety Concerns: Feels Safe At This Time Smoking Status: Current every day smoker Tobacco Type: cigarettes Cigarettes Per Day: 20 Do You Dip or Chew Tobacco: No Second Hand Exposure: No Tobacco Cessation Education Requested by Patient: No Hx Alcohol Use: Yes Alcohol type: beer Hx Substance Use: Yes (beer and cigarettes) substance use type: does not use Last Used Substance: Just Prior to Arrival Review of Systems Review of Systems: Unobtainable due to reduced consciousness Physical Exam Constitutional: WD/WN, vitals as above ENMT: external ear and nose normal, oropharynx normal Neck: normal visual inspection and trachea midline Respiratory: normal respiratory effort, lungs clear to auscultation Cardiovascular: RRR Gastrointestinal (Abdomen): physical with nurse present, abdomen pos bs, moderate distension and tympany, no guarding nor rebound, rectal no obvious mass, brown stool Neurologic: CN grossly intact, Psychiatric: pt obtunded Results & Data Vital Signs (Past 12 Hours) Vital Signs Temp Pulse Resp BP Pulse Ox 10/06/18 14:48 35.8 C L 84 16 84/57 L 95 10/06/18 14:31 35.7 C L 87 16 89/61 L 94 10/06/18 14:15 87 15 87/51 L 94 10/06/18 14:00 84 13 91/59 L 95 10/06/18 13:45 84 14 96/61 L 95 10/06/18 13:30 84 16 82/59 L 95 10/06/18 13:15 82 13 82/55 L 95 10/06/18 13:00 82 14 90/47 L 94 10/06/18 12:45 81 13 84/56 L 95 10/06/18 12:30 82 14 82/58 L 95 10/06/18 12:15 78 13 85/61 L 95 10/06/18 12:00 79 14 80/57 L 95 10/06/18 11:45 79 13 81/52 L 97 10/06/18 11:30 80 15 77/49 L 95 10/06/18 11:15 80 14 83/52 L 10/06/18 11:00 79 13 80/53 L 96 10/06/18 10:45 79 13 83/51 L 96 10/06/18 10:30 80 16 78/58 L 97 10/06/18 10:15 34.9 C L 80 16 75/51 L 95 10/06/18 10:01 34.9 C L 80 16 82/44 L 98 10/06/18 09:01 34.8 C L 84 16 115/48 L 93 10/06/18 08:31 34.9 C L 85 18 103/45 L 96 10/06/18 08:16 34.9 C L 83 18 103/52 L 100 10/06/18 07:55 85 16 105/51 L 99 10/06/18 06:30 83 18 98/49 L 100 10/06/18 06:15 83 91/46 L 100 10/06/18 06:00 82 89/45 L 100 10/06/18 05:46 82 96/44 L 100 10/06/18 05:30 82 94/43 L 100 10/06/18 05:16 82 85/40 L 100 10/06/18 05:00 83 85/46 L 100 10/06/18 04:45 83 86/49 L 100 10/06/18 04:30 83 73/34 L 99 10/06/18 04:16 83 66/42 L 100 10/06/18 04:13 83 18 66/42 L 100 10/06/18 04:00 84 86/45 L 100 10/06/18 03:58 84 17 86/45 L 100 10/06/18 03:53 83 82/42 L 99 10/06/18 03:50 84 61/43 L 100 10/06/18 03:46 84 67/40 L 99 10/06/18 03:43 85 24 73/34 L 99
[2018-10-06 17:03] LABS: Albumin Globulin Ratio 0.6 (0.9-2); Albumin Level 2.1 gm/dl (3.4-5.0); BUN Creatinine Ratio 4.7 (10-20); Bilirubin,Total 8.6 mg/dl (0.2-1); Creatinine Clr Calc Pharmacy 32.3 ml/min; Est GFR (African American) 24.4; Est GFR (Non-African American) 21.1; Globulin 3.6 gm/dl (2.5-4.0); Potassium 6.1 mmol/L (3.5-5.1); Total Protein 5.7 gm/dl (6.4-8.2)
--- NOTE | 2018-10-06 17:37 | Family Medicine Progress Note ---
Date of Service October 06, 2018 Assessment & Plan (1) Elevated LFTs: 48 y/o female with chronic Hx of alcohol abuse presenting with seizures likely related to alcohol withdrawal. Acute encephalopathy -2/2 chronic alcoholism, renal failure and liver failure -phenobarb dc'd. Will cont MV's, thiamine, and benzodiazepines to prevent withdrawal Anemia -No s/s of GI bleeding, no vomiting of blood or blood per rectum. NG placed and no blood, so no UGI bleeding. Considering retroperitoneal bleed/Intra-abdominal. No hx of varices--> ?octreotide -Will cont PPI ranitidine and Protonix for PUD -Transfuse prn. Supportive care focused on hemodynamics -Noncontrast CT scan of the abd moving forward once stable Acute liver failure/Cirrhosis -Rising INR and LFT suggests acute liver failure on top of known cirrhosis. Loss of synthetic capability and shock liver -very poor prognosis, will cont supporitive care. Not a liver transplant candidate given ETOH use -Cirrhosis- from ETOH. Prelim Hep C positive. Other serology pending. -Pt with ascites and cirrhosis noted on abd US this visit -Placed on ceftriaxone/flagyl for possible spontaneous bacterial peritonitis. 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 Overall prognosis guarded -will avoid nephrotoxins -developing hepatorenal syndrome in the setting of acute hepatic failure and chronic alcoholic cirrhosis Elevated lactic acid -Could be septic vs ischemic bowel. As above, supportive care as she is not a surgical candidate Seizure -Likely due to acute alcohol withdrawal -continue Topamax Hypercoagulopathy -FFP 2 units and Vit K 10 mg today -cont trend PT/INR FEN- NPO currently DVT Prophylaxis: low risk Full Code Dispo: ICU (2) Acute kidney injury: (3) Acute encephalopathy: (4) Hepatic insufficiency: (5) Acute alteration in mental status: (6) Seizure: (7) Pancytopenia: (8) Liver cirrhosis, alcoholic: (9) Alcohol withdrawal: (10) Anemia: (11) Coagulopathy: (12) Thrombocytopenia: (13) Acute alcoholic intoxication in alcoholism with complication, continuous drinking behavior: Supervising Physician Co-Signing Physician Notes I personally examined the patient and verified all cooper points of history and exam, discussed case, and agree with decision making with Dr Rossi. no meaningful HPI or ROS. case d/w ICU and GI, input appreciated. called mother due to severe and concerning decline in pt's status, she noted she would be in. vitals noted, in bed without meaningful response. breathing unlabored lungs clear, no visible signs of distress or pain. cardio reg no r/m/g. abd soft nd nt (+) BS. ext no c/c/e. due to mentation, full neuro exam unable to be completed but no gross deficits. cirrhosis, EtOH abuse/withdrawal, withdrawal seizures, acute blood loss anemia, concern on developing hemorrhagic shock, acute decompensated liver failure -supportive care focused on hemodynamics -bleeding highly unlikely to be intraluminal GI (no blood in NGT, no overt melena/hematochezia despite significant blood loss, no varices on fairly recent EGD) --> concern would be with her worsening coagulopathy spontaneous retroperitoneal or intra-abdominal (CT once stable enough could shed light on source, but given her current decompensation with liver disease likely would be unactionable findings beyond supportive care/hemodynamics and transfusions -continue hemodynamic support, transfuse as needed -prognosis poor -otherwise as above Subjective 48 y/o found this AM in NAD. No reported overnight events. Pt difficult to arouse, so subjective hx somewhat limited. Still NPO. No issues voiding. Pt prognosis not very good, this was discussed with family. Right now, just continuing with supportive care and transfusing as needed. 3 units today. Central line was placed this morning due to lack of IV access. No other acute concerns or complaints. Review of Systems Review of Systems: All systems reviewed & are unremarkable except as noted in HPI & below Physical Exam Constitutional: + ill appearing Eyes: sclera icteric ENMT: dry MM Respiratory: normal respiratory effort, lungs clear to auscultation Cardiovascular: RRR, no murmur, no edema Skin: no rashes, warm and dry Neurologic: Lethargic Genitourinary: small in place draining concentrated urine Results & Data Vital Signs (Past 12 Hours) Vital Signs Temp Pulse Resp BP Pulse Ox 10/06/18 16:35 36.6 C 90 17 93/57 L 97 10/06/18 16:14 69 88/58 L 10/06/18 16:00 90 10/06/18 15:46 91 H 88/58 L 10/06/18 15:45 91 H 10/06/18 15:43 90 84/56 L 97 10/06/18 15:30 36.6 C 89 17 84/56 L 99 10/06/18 15:16 90 65/53 L 96 10/06/18 15:15 90 92 10/06/18 15:03 36.5 C 86 17 88/55 L 96 10/06/18 15:00 85 88/55 L 96 10/06/18 14:48 35.8 C L 84 16 84/57 L 95 10/06/18 14:45 84 84/57 L 94 10/06/18 14:31 35.7 C L 87 16 89/61 L 94 10/06/18 14:30 87 89/61 L 95 10/06/18 14:15 87 15 87/51 L 94 10/06/18 14:00 84 13 91/59 L 95 10/06/18 13:45 84 14 96/61 L 95 10/06/18 13:30 84 16 82/59 L 95 10/06/18 13:15 82 13 82/55 L 95 10/06/18 13:00 82 14 90/47 L 94 10/06/18 12:45 81 13 84/56 L 95 10/06/18 12:30 82 14 82/58 L 95 10/06/18 12:15 78 13 85/61 L 95 10/06/18 12:00 79 14 80/57 L 95 10/06/18 11:45 79 13 81/52 L 97 10/06/18 11:30 80 15 77/49 L 95 10/06/18 11:15 80 14 83/52 L 10/06/18 11:00 79 13 80/53 L 96 10/06/18 10:45 79 13 83/51 L 96 10/06/18 10:30 80 16 78/58 L 97 10/06/18 10:15 34.9 C L 80 16 75/51 L 95 10/06/18 10:01 34.9 C L 80 16 82/44 L 98 10/06/18 09:01 34.8 C L 84 16 115/48 L 93 10/06/18 08:31 34.9 C L 85 18 103/45 L 96 10/06/18 08:16 34.9 C L 83 18 103/52 L 100 10/06/18 07:55 85 16 105/51 L 99 10/06/18 06:30 83 18 98/49 L 100 10/06/18 06:15 83 91/46 L 100 10/06/18 06:00 82 89/45 L 100 10/06/18 05:46 82 96/44 L 100 Laboratory Results Laboratory Results - last 24 hr 10/04/18 10/05/18 10/05/18 19:01 18:30 18:50 WBC Cancelled RBC Cancelled Hgb Cancelled Hct Cancelled MCV Cancelled MCH Cancelled MCHC Cancelled RDW Std Deviation Cancelled RDW Coeff of Michelle Cancelled Plt Count Cancelled MPV Cancelled Immature Gran % (Auto) Cancelled Neut % (Auto) Cancelled Lymph % (Auto) Cancelled [place] % (Auto) Cancelled Eos % (Auto) Cancelled Baso % (Auto) Cancelled Immature Gran # (Auto) Cancelled Neut # (Auto) Cancelled Lymph # (Auto) Cancelled [place] # (Auto) Cancelled Eos # (Auto) Cancelled Baso # (Auto) Cancelled Absolute Nucleated RBC Cancelled Nucleated RBC % (auto) Cancelled Neutrophils % (Manual) Cancelled Band Neutrophils % Cancelled Lymphocytes % (Manual) Cancelled Prolymphocyte % Cancelled Reactive Lymphs % (Man) Cancelled Monocytes % (Manual) Cancelled Eosinophils % (Manual) Cancelled Basophils % (Manual) Cancelled Metamyelocytes % (Man) Cancelled Myelocytes % (Man) Cancelled Promyelocytes % (Man) Cancelled Blast Cells % (Manual) Cancelled Plasma Cell % (Manual) Cancelled Other Cells % Cancelled Nucleated RBC % Cancelled Neutrophils # (Manual) Cancelled Band Neutrophils # Cancelled Total Absolute Neuts Cancelled Lymphocytes # (Manual) Cancelled Prolymphocyte # Cancelled Reactive Lymphs # Cancelled Total Abs Lymphocytes Cancelled Monocytes # (Manual) Cancelled Eosinophils # (Manual) Cancelled Basophils # (Manual) Cancelled Metamyelocytes # (Man) Cancelled Myelocytes # (Manual) Cancelled Promyelocytes # (Man) Cancelled Blast Cells # (Man) Cancelled Plasma Cell # (Manual) Cancelled Other Cells # Cancelled Nucleated RBCs # (Man) Cancelled Hypersegmented Neuts Cancelled Hyposegmented Neuts Cancelled Hypogranular Neuts Cancelled Large Granular Lymphs Cancelled # Lrg Granular Lymphs Cancelled Hairy Cells Cancelled Smudge Cells Cancelled Toxic Granulation Cancelled Toxic Vacuolation Cancelled Dohle Bodies Cancelled Bin Rods Cancelled Platelet Estimate Cancelled Hypogranular Platelets Cancelled Clumped Platelets Cancelled Giant Platelets Cancelled Platelet Satelliting Cancelled RBC Morphology Cancelled Polychromasia Cancelled Hypochromasia Cancelled Poikilocytosis Cancelled Basophilic Stippling Cancelled Anisocytosis Cancelled Microcytosis Cancelled Macrocytosis Cancelled Spherocytes Cancelled Pappenheimer Bodies Cancelled Sickle Cells Cancelled Target Cells Cancelled Tear Drop Cells Cancelled Ovalocytes Cancelled Stomatocytes Cancelled [place] Bodies Cancelled Echinocytes Cancelled Acanthocytes (Spur) Cancelled Rouleaux Cancelled RBC Agglutinates Cancelled Schistocytes Cancelled RBC Morph Comment Cancelled Sezary Cell Cancelled PT INR Sodium Potassium Chloride Carbon Dioxide Anion Gap BUN Creatinine Est Cr Clr Drug Dosing Est GFR ( Amer) Est GFR (Non-Af Amer) BUN/Creatinine Ratio Glucose POC Glucose POC Glucose (other) Lactate Calcium Ionized Calcium Phosphorus Magnesium Total Bilirubin Direct Bilirubin AST ALT Alkaline Phosphatase Ammonia Total Protein Albumin Globulin Albumin/Globulin Ratio Nasal Screen MRSA (PCR) Negative Hepatitis A IgM Ab Hep Bs Antigen Hep B Core IgM Ab Hepatitis C Antibody HCV RNA Qual (TMA) Blood Type A Positive Antibody Screen NEGATIVE Crossmatch See Detail 10/05/18 10/05/18 10/05/18 19:46 19:47 20:06 WBC RBC Hgb Hct MCV MCH MCHC RDW Std Deviation RDW Coeff of Michelle Plt Count MPV Immature Gran % (Auto) Neut % (Auto) Lymph % (Auto) [place] % (Auto) Eos % (Auto) Baso % (Auto) Immature Gran # (Auto) Neut # (Auto) Lymph # (Auto) [place] # (Auto) Eos # (Auto) Baso # (Auto) Absolute Nucleated RBC Nucleated RBC % (auto) Neutrophils % (Manual) Band Neutrophils % Lymphocytes % (Manual) Prolymphocyte % Reactive Lymphs % (Man) Monocytes % (Manual) Eosinophils % (Manual) Basophils % (Manual) Metamyelocytes % (Man) Myelocytes % (Man) Promyelocytes % (Man) Blast Cells % (Manual) Plasma Cell % (Manual) Other Cells % Nucleated RBC % Neutrophils # (Manual) Band Neutrophils # Total Absolute Neuts Lymphocytes # (Manual) Prolymphocyte # Reactive Lymphs # Total Abs Lymphocytes Monocytes # (Manual) Eosinophils # (Manual) Basophils # (Manual) Metamyelocytes # (Man) Myelocytes # (Manual) Promyelocytes # (Man) Blast Cells # (Man) Plasma Cell # (Manual) Other Cells # Nucleated RBCs # (Man) Hypersegmented Neuts Hyposegmented Neuts Hypogranular Neuts Large Granular Lymphs # Lrg Granular Lymphs Hairy Cells Smudge Cells Toxic Granulation Toxic Vacuolation Dohle Bodies Bin Rods Platelet Estimate Hypogranular Platelets Clumped Platelets Giant Platelets Platelet Satelliting RBC Morphology Polychromasia Hypochromasia Poikilocytosis Basophilic Stippling Anisocytosis Microcytosis Macrocytosis Spherocytes Pappenheimer Bodies Sickle Cells Target Cells Tear Drop Cells Ovalocytes Stomatocytes [place] Bodies Echinocytes Acanthocytes (Spur) Rouleaux RBC Agglutinates Schistocytes RBC Morph Comment Sezary Cell PT INR Sodium Potassium Chloride Carbon Dioxide Anion Gap BUN Creatinine Est Cr Clr Drug Dosing Est GFR ( Amer) Est GFR (Non-Af Amer) BUN/Creatinine Ratio Glucose POC Glucose 51 L* 47 L* 99 POC Glucose (other) Lactate Calcium Ionized Calcium Phosphorus Magnesium Total Bilirubin Direct Bilirubin AST ALT Alkaline Phosphatase Ammonia Total Protein Albumin Globulin Albumin/Globulin Ratio Nasal Screen MRSA (PCR) Hepatitis A IgM Ab Hep Bs Antigen Hep B Core IgM Ab Hepatitis C Antibody HCV RNA Qual (TMA) Blood Type Antibody Screen Crossmatch 10/05/18 10/05/18 10/05/18 20:14 23:15 23:18 WBC 6.38 RBC 2.16 L Hgb 7.3 L Hct 23.2 L MCV 107.4 H D MCH 33.8 MCHC 31.5 L RDW Std Deviation 77.2 H RDW Coeff of Michelle 19.8 H Plt Count 55 L MPV 11.6 H Immature Gran % (Auto) 0.6 Neut % (Auto) 79.2 Lymph % (Auto) 6.1 [place] % (Auto) 13.6 Eos % (Auto) 0.3 Baso % (Auto) 0.2 Immature Gran # (Auto) 0.04 H Neut # (Auto) 5.05 Lymph # (Auto) 0.39 L [place] # (Auto) 0.87 H Eos # (Auto) 0.02 Baso # (Auto) 0.01 Absolute Nucleated RBC 0.07 H Nucleated RBC % (auto) 1.1 Neutrophils % (Manual) Band Neutrophils % Lymphocytes % (Manual) Prolymphocyte % Reactive Lymphs % (Man) Monocytes % (Manual) Eosinophils % (Manual) Basophils % (Manual) Metamyelocytes % (Man) Myelocytes % (Man) Promyelocytes % (Man) Blast Cells % (Manual) Plasma Cell % (Manual) Other Cells % Nucleated RBC % Neutrophils # (Manual) Band Neutrophils # Total Absolute Neuts Lymphocytes # (Manual) Prolymphocyte # Reactive Lymphs # Total Abs Lymphocytes Monocytes # (Manual) Eosinophils # (Manual) Basophils # (Manual) Metamyelocytes # (Man) Myelocytes # (Manual) Promyelocytes # (Man) Blast Cells # (Man) Plasma Cell # (Manual) Other Cells # Nucleated RBCs # (Man) Hypersegmented Neuts Hyposegmented Neuts Hypogranular Neuts Large Granular Lymphs # Lrg Granular Lymphs Hairy Cells Smudge Cells Toxic Granulation Toxic Vacuolation 2+ Dohle Bodies Bin Rods Platelet Estimate Hypogranular Platelets Clumped Platelets Giant Platelets 1+ Platelet Satelliting RBC Morphology Polychromasia 1+ Hypochromasia Poikilocytosis Basophilic Stippling Anisocytosis Microcytosis Macrocytosis Spherocytes Pappenheimer Bodies Sickle Cells Target Cells Tear Drop Cells Ovalocytes Stomatocytes [place] Bodies Echinocytes 2+ Acanthocytes (Spur) Rouleaux RBC Agglutinates Schistocytes RBC Morph Comment Sezary Cell PT INR Sodium Potassium Chloride Carbon Dioxide Anion Gap BUN Creatinine Est Cr Clr Drug Dosing Est GFR ( Amer) Est GFR (Non-Af Amer) BUN/Creatinine Ratio Glucose POC Glucose 63 L* 70 POC Glucose (other) Lactate Calcium Ionized Calcium Phosphorus Magnesium Total Bilirubin Direct Bilirubin AST ALT Alkaline Phosphatase Ammonia Total Protein Albumin Globulin Albumin/Globulin Ratio Nasal Screen MRSA (PCR) Hepatitis A IgM Ab Hep Bs Antigen Hep B Core IgM Ab Hepatitis C Antibody HCV RNA Qual (TMA) Blood Type Antibody Screen Crossmatch 10/05/18 10/06/18 10/06/18 23:47 02:03 02:50 WBC 6.23 RBC 1.66 L Hgb 5.4 L* 6.3 L* Hct 18.1 L* 20.9 L* MCV 109.0 H MCH 32.5 MCHC 29.8 L RDW Std Deviation 77.7 H RDW Coeff of Michelle 19.9 H Plt Count 37 L MPV 12.3 H Immature Gran % (Auto) 0.3 Neut % (Auto) 74.3 Lymph % (Auto) 13.0 [place] % (Auto) 12.2 Eos % (Auto) 0.2 Baso % (Auto) 0.0 Immature Gran # (Auto) 0.02 Neut # (Auto) 4.63 Lymph # (Auto) 0.81 L [place] # (Auto) 0.76 H Eos # (Auto) 0.01 Baso # (Auto) 0.00 Absolute Nucleated RBC 0.08 H Nucleated RBC % (auto) 1.2 Neutrophils % (Manual) Band Neutrophils % Lymphocytes % (Manual) Prolymphocyte % Reactive Lymphs % (Man) Monocytes % (Manual) Eosinophils % (Manual) Basophils % (Manual) Metamyelocytes % (Man) Myelocytes % (Man) Promyelocytes % (Man) Blast Cells % (Manual) Plasma Cell % (Manual) Other Cells % Nucleated RBC % Neutrophils # (Manual) Band Neutrophils # Total Absolute Neuts Lymphocytes # (Manual) Prolymphocyte # Reactive Lymphs # Total Abs Lymphocytes Monocytes # (Manual) Eosinophils # (Manual) Basophils # (Manual) Metamyelocytes # (Man) Myelocytes # (Manual) Promyelocytes # (Man) Blast Cells # (Man) Plasma Cell # (Manual) Other Cells # Nucleated RBCs # (Man) Hypersegmented Neuts Hyposegmented Neuts Hypogranular Neuts Large Granular Lymphs # Lrg Granular Lymphs Hairy Cells Smudge Cells Toxic Granulation Toxic Vacuolation 1+ Dohle Bodies Bin Rods Platelet Estimate Hypogranular Platelets Clumped Platelets Giant Platelets 1+ Platelet Satelliting RBC Morphology Polychromasia 1+ Hypochromasia Poikilocytosis Basophilic Stippling Anisocytosis Microcytosis Macrocytosis Spherocytes Pappenheimer Bodies Sickle Cells Target Cells Tear Drop Cells Ovalocytes Stomatocytes [place] Bodies Echinocytes 2+ Acanthocytes (Spur) Rouleaux RBC Agglutinates Schistocytes RBC Morph Comment Sezary Cell PT INR Sodium Potassium Chloride Carbon Dioxide Anion Gap BUN Creatinine Est Cr Clr Drug Dosing Est GFR ( Amer) Est GFR (Non-Af Amer) BUN/Creatinine Ratio Glucose POC Glucose 120 H POC Glucose (other) Lactate Calcium Ionized Calcium Phosphorus Magnesium Total Bilirubin Direct Bilirubin AST ALT Alkaline Phosphatase Ammonia Total Protein Albumin Globulin Albumin/Globulin Ratio Nasal Screen MRSA (PCR) Hepatitis A IgM Ab Hep Bs Antigen Hep B Core IgM Ab Hepatitis C Antibody HCV RNA Qual (TMA) Blood Type Antibody Screen Crossmatch 10/06/18 10/06/18 10/06/18 06:50 06:50 06:51 WBC RBC Hgb Hct MCV MCH MCHC RDW Std Deviation RDW Coeff of Michelle Plt Count MPV Immature Gran % (Auto) Neut % (Auto) Lymph % (Auto) [place] % (Auto) Eos % (Auto) Baso % (Auto) Immature Gran # (Auto) Neut # (Auto) Lymph # (Auto) [place] # (Auto) Eos # (Auto) Baso # (Auto) Absolute Nucleated RBC Nucleated RBC % (auto) Neutrophils % (Manual) Band Neutrophils % Lymphocytes % (Manual) Prolymphocyte % Reactive Lymphs % (Man) Monocytes % (Manual) Eosinophils % (Manual) Basophils % (Manual) Metamyelocytes % (Man) Myelocytes % (Man) Promyelocytes % (Man) Blast Cells % (Manual) Plasma Cell % (Manual) Other Cells % Nucleated RBC % Neutrophils # (Manual) Band Neutrophils # Total Absolute Neuts Lymphocytes # (Manual) Prolymphocyte # Reactive Lymphs # Total Abs Lymphocytes Monocytes # (Manual) Eosinophils # (Manual) Basophils # (Manual) Metamyelocytes # (Man) Myelocytes # (Manual) Promyelocytes # (Man) Blast Cells # (Man) Plasma Cell # (Manual) Other Cells # Nucleated RBCs # (Man) Hypersegmented Neuts Hyposegmented Neuts Hypogranular Neuts Large Granular Lymphs # Lrg Granular Lymphs Hairy Cells Smudge Cells Toxic Granulation Toxic Vacuolation Dohle Bodies Bin Rods Platelet Estimate Hypogranular Platelets Clumped Platelets Giant Platelets Platelet Satelliting RBC Morphology Polychromasia Hypochromasia Poikilocytosis Basophilic Stippling Anisocytosis Microcytosis Macrocytosis Spherocytes Pappenheimer Bodies Sickle Cells Target Cells Tear Drop Cells Ovalocytes Stomatocytes [place] Bodies Echinocytes Acanthocytes (Spur) Rouleaux RBC Agglutinates Schistocytes RBC Morph Comment Sezary Cell PT Cancelled INR Cancelled Sodium 135 L Potassium 5.6 H D Chloride 103 Carbon Dioxide 11 L Anion Gap 21.0 H BUN 10 Creatinine 2.24 H D Est Cr Clr Drug Dosing 36.9 Est GFR ( Amer) 28.7 Est GFR (Non-Af Amer) 24.8 BUN/Creatinine Ratio 4.5 L Glucose 101 H POC Glucose POC Glucose (other) Lactate Calcium 7.2 L Ionized Calcium Phosphorus 6.5 H Magnesium 2.5 H Total Bilirubin 7.3 H Direct Bilirubin 5.2 H AST 6458 H ALT 1033 H Alkaline Phosphatase 139 H Ammonia Total Protein 5.7 L D Albumin 2.0 L Globulin Albumin/Globulin Ratio Nasal Screen MRSA (PCR) Hepatitis A IgM Ab Pending Hep Bs Antigen Hep B Core IgM Ab Pending Hepatitis C Antibody HCV RNA Qual (TMA) Pending Blood Type Antibody Screen Crossmatch 10/06/18 10/06/18 10/06/18 06:51 06:51 06:51 WBC 6.50 RBC 2.04 L Hgb 6.7 L* Hct 20.9 L* MCV 102.5 H D MCH 32.8 MCHC 32.1 RDW Std Deviation 72.1 H RDW Coeff of Michelle 20.2 H Plt Count 41 L MPV 10.9 H Immature Gran % (Auto) 0.2 Neut % (Auto) 77.8 Lymph % (Auto) 12.0 [place] % (Auto) 9.8 Eos % (Auto) 0.2 Baso % (Auto) 0.0 Immature Gran # (Auto) 0.01 Neut # (Auto) 5.06 Lymph # (Auto) 0.78 L [place] # (Auto) 0.64 H Eos # (Auto) 0.01 Baso # (Auto) 0.00 Absolute Nucleated RBC 0.02 H Nucleated RBC % (auto) 0.4 Neutrophils % (Manual) Band Neutrophils % Lymphocytes % (Manual) Prolymphocyte % Reactive Lymphs % (Man) Monocytes % (Manual) Eosinophils % (Manual) Basophils % (Manual) Metamyelocytes % (Man) Myelocytes % (Man) Promyelocytes % (Man) Blast Cells % (Manual) Plasma Cell % (Manual) Other Cells % Nucleated RBC % Neutrophils # (Manual) Band Neutrophils # Total Absolute Neuts Lymphocytes # (Manual) Prolymphocyte # Reactive Lymphs # Total Abs Lymphocytes Monocytes # (Manual) Eosinophils # (Manual) Basophils # (Manual) Metamyelocytes # (Man) Myelocytes # (Manual) Promyelocytes # (Man) Blast Cells # (Man) Plasma Cell # (Manual) Other Cells # Nucleated RBCs # (Man) Hypersegmented Neuts Hyposegmented Neuts Hypogranular Neuts Large Granular Lymphs # Lrg Granular Lymphs Hairy Cells Smudge Cells Toxic Granulation Toxic Vacuolation Dohle Bodies Bin Rods Platelet Estimate Hypogranular Platelets Clumped Platelets Giant Platelets Platelet Satelliting RBC Morphology Polychromasia 1+ Hypochromasia Present Poikilocytosis Basophilic Stippling Anisocytosis Microcytosis Macrocytosis Present Spherocytes Pappenheimer Bodies Sickle Cells Target Cells Tear Drop Cells Ovalocytes Stomatocytes [place] Bodies Echinocytes 1+ Acanthocytes (Spur) Rouleaux RBC Agglutinates Schistocytes RBC Morph Comment Sezary Cell PT INR Sodium Potassium Chloride Carbon Dioxide Anion Gap BUN Creatinine Est Cr Clr Drug Dosing Est GFR ( Amer) Est GFR (Non-Af Amer) BUN/Creatinine Ratio Glucose POC Glucose POC Glucose (other) Lactate Calcium Ionized Calcium 0.92 L Phosphorus Magnesium Total Bilirubin Direct Bilirubin AST ALT Alkaline Phosphatase Ammonia Total Protein Albumin Globulin Albumin/Globulin Ratio Nasal Screen MRSA (PCR) Hepatitis A IgM Ab Hep Bs Antigen Neg Hep B Core IgM Ab Hepatitis C Antibody Prelim Pos A HCV RNA Qual (TMA) Blood Type Antibody Screen Crossmatch 10/06/18 10/06/18 10/06/18 06:51 07:50 11:09 WBC 7.65 RBC 2.35 L Hgb 7.7 L Hct 23.0 L MCV 97.9 MCH 32.8 MCHC 33.5 RDW Std Deviation 68.4 H RDW Coeff of Michelle 20.2 H Plt Count 45 L MPV 11.8 H Immature Gran % (Auto) 0.3 Neut % (Auto) 79.9 Lymph % (Auto) 11.4 [place] % (Auto) 8.4 Eos % (Auto) 0.0 Baso % (Auto) 0.0 Immature Gran # (Auto) 0.02 Neut # (Auto) 6.12 Lymph # (Auto) 0.87 L [place] # (Auto) 0.64 H Eos # (Auto) 0.00 Baso # (Auto) 0.00 Absolute Nucleated RBC 0.02 H Nucleated RBC % (auto) 0.3 Neutrophils % (Manual) Band Neutrophils % Lymphocytes % (Manual) Prolymphocyte % Reactive Lymphs % (Man) Monocytes % (Manual) Eosinophils % (Manual) Basophils % (Manual) Metamyelocytes % (Man) Myelocytes % (Man) Promyelocytes % (Man) Blast Cells % (Manual) Plasma Cell % (Manual) Other Cells % Nucleated RBC % Neutrophils # (Manual) Band Neutrophils # Total Absolute Neuts Lymphocytes # (Manual) Prolymphocyte # Reactive Lymphs # Total Abs Lymphocytes Monocytes # (Manual) Eosinophils # (Manual) Basophils # (Manual) Metamyelocytes # (Man) Myelocytes # (Manual) Promyelocytes # (Man) Blast Cells # (Man) Plasma Cell # (Manual) Other Cells # Nucleated RBCs # (Man) Hypersegmented Neuts Hyposegmented Neuts Hypogranular Neuts Large Granular Lymphs # Lrg Granular Lymphs Hairy Cells Smudge Cells Toxic Granulation Toxic Vacuolation Dohle Bodies Bin Rods Platelet Estimate Hypogranular Platelets Clumped Platelets Giant Platelets Platelet Satelliting RBC Morphology Polychromasia 1+ Hypochromasia Present Poikilocytosis Basophilic Stippling Anisocytosis Present Microcytosis Macrocytosis Spherocytes Pappenheimer Bodies Sickle Cells Target Cells Tear Drop Cells Ovalocytes Stomatocytes [place] Bodies Echinocytes 2+ Acanthocytes (Spur) Rouleaux RBC Agglutinates Schistocytes RBC Morph Comment Sezary Cell PT Cancelled INR Cancelled Sodium Potassium Chloride Carbon Dioxide Anion Gap BUN Creatinine Est Cr Clr Drug Dosing Est GFR ( Amer) Est GFR (Non-Af Amer) BUN/Creatinine Ratio Glucose POC Glucose POC Glucose (other) Lactate 13.9 H* Calcium Ionized Calcium Phosphorus Magnesium Total Bilirubin Direct Bilirubin AST ALT Alkaline Phosphatase Ammonia Total Protein Albumin Globulin Albumin/Globulin Ratio Nasal Screen MRSA (PCR) Hepatitis A IgM Ab Hep Bs Antigen Hep B Core IgM Ab Hepatitis C Antibody HCV RNA Qual (TMA) Blood Type Antibody Screen Crossmatch 10/06/18 10/06/18 10/06/18 11:09 11:13 15:59 WBC RBC Hgb Hct MCV MCH MCHC RDW Std Deviation RDW Coeff of Michelle Plt Count MPV Immature Gran % (Auto) Neut % (Auto) Lymph % (Auto) [place] % (Auto) Eos % (Auto) Baso % (Auto) Immature Gran # (Auto) Neut # (Auto) Lymph # (Auto) [place] # (Auto) Eos # (Auto) Baso # (Auto) Absolute Nucleated RBC Nucleated RBC % (auto) Neutrophils % (Manual) Band Neutrophils % Lymphocytes % (Manual) Prolymphocyte % Reactive Lymphs % (Man) Monocytes % (Manual) Eosinophils % (Manual) Basophils % (Manual) Metamyelocytes % (Man) Myelocytes % (Man) Promyelocytes % (Man) Blast Cells % (Manual) Plasma Cell % (Manual) Other Cells % Nucleated RBC % Neutrophils # (Manual) Band Neutrophils # Total Absolute Neuts Lymphocytes # (Manual) Prolymphocyte # Reactive Lymphs # Total Abs Lymphocytes Monocytes # (Manual) Eosinophils # (Manual) Basophils # (Manual) Metamyelocytes # (Man) Myelocytes # (Manual) Promyelocytes # (Man) Blast Cells # (Man) Plasma Cell # (Manual) Other Cells # Nucleated RBCs # (Man) Hypersegmented Neuts Hyposegmented Neuts Hypogranular Neuts Large Granular Lymphs # Lrg Granular Lymphs Hairy Cells Smudge Cells Toxic Granulation Toxic Vacuolation Dohle Bodies Bin Rods Platelet Estimate Hypogranular Platelets Clumped Platelets Giant Platelets Platelet Satelliting RBC Morphology Polychromasia Hypochromasia Poikilocytosis Basophilic Stippling Anisocytosis Microcytosis Macrocytosis Spherocytes Pappenheimer Bodies Sickle Cells Target Cells Tear Drop Cells Ovalocytes Stomatocytes [place] Bodies Echinocytes Acanthocytes (Spur) Rouleaux RBC Agglutinates Schistocytes RBC Morph Comment Sezary Cell PT 38.6 H INR 4.2 H Sodium Cancelled Potassium Cancelled Chloride Cancelled Carbon Dioxide Cancelled Anion Gap Cancelled BUN Cancelled Creatinine Cancelled Est Cr Clr Drug Dosing Cancelled Est GFR ( Amer) Cancelled Est GFR (Non-Af Amer) Cancelled BUN/Creatinine Ratio Cancelled Glucose Cancelled POC Glucose POC Glucose (other) 112 H Lactate Calcium Cancelled Ionized Calcium Phosphorus Cancelled Magnesium Total Bilirubin Direct Bilirubin AST ALT Alkaline Phosphatase Ammonia Total Protein Albumin Cancelled Globulin Albumin/Globulin Ratio Nasal Screen MRSA (PCR) Hepatitis A IgM Ab Hep Bs Antigen Hep B Core IgM Ab Hepatitis C Antibody HCV RNA Qual (TMA) Blood Type Antibody Screen Crossmatch 10/06/18 10/06/18 10/06/18 15:59 17:35 18:41 WBC RBC Hgb Hct MCV MCH MCHC RDW Std Deviation RDW Coeff of Michelle Plt Count MPV Immature Gran % (Auto) Neut % (Auto) Lymph % (Auto) [place] % (Auto) Eos % (Auto) Baso % (Auto) Immature Gran # (Auto) Neut # (Auto) Lymph # (Auto) [place] # (Auto) Eos # (Auto) Baso # (Auto) Absolute Nucleated RBC Nucleated RBC % (auto) Neutrophils % (Manual) Band Neutrophils % Lymphocytes % (Manual) Prolymphocyte % Reactive Lymphs % (Man) Monocytes % (Manual) Eosinophils % (Manual) Basophils % (Manual) Metamyelocytes % (Man) Myelocytes % (Man) Promyelocytes % (Man) Blast Cells % (Manual) Plasma Cell % (Manual) Other Cells % Nucleated RBC % Neutrophils # (Manual) Band Neutrophils # Total Absolute Neuts Lymphocytes # (Manual) Prolymphocyte # Reactive Lymphs # Total Abs Lymphocytes Monocytes # (Manual) Eosinophils # (Manual) Basophils # (Manual) Metamyelocytes # (Man) Myelocytes # (Manual) Promyelocytes # (Man) Blast Cells # (Man) Plasma Cell # (Manual) Other Cells # Nucleated RBCs # (Man) Hypersegmented Neuts Hyposegmented Neuts Hypogranular Neuts Large Granular Lymphs # Lrg Granular Lymphs Hairy Cells Smudge Cells Toxic Granulation Toxic Vacuolation Dohle Bodies Bin Rods Platelet Estimate Hypogranular Platelets Clumped Platelets Giant Platelets Platelet Satelliting RBC Morphology Polychromasia Hypochromasia Poikilocytosis Basophilic Stippling Anisocytosis Microcytosis Macrocytosis Spherocytes Pappenheimer Bodies Sickle Cells Target Cells Tear Drop Cells Ovalocytes Stomatocytes [place] Bodies Echinocytes Acanthocytes (Spur) Rouleaux RBC Agglutinates Schistocytes RBC Morph Comment Sezary Cell PT INR Sodium 134 L Potassium 6.1 H* Chloride 103 Carbon Dioxide 17 L Anion Gap 13.0 H BUN 12 Creatinine 2.56 H D Est Cr Clr Drug Dosing 32.3 Est GFR ( Amer) 24.4 Est GFR (Non-Af Amer) 21.1 BUN/Creatinine Ratio 4.7 L Glucose 151 H POC Glucose 158 H POC Glucose (other) Lactate Calcium 7.0 L Ionized Calcium Phosphorus 6.0 H Magnesium Total Bilirubin 8.6 H Direct Bilirubin AST 8866 H ALT 1188 H Alkaline Phosphatase 166 H Ammonia 57.0 H Total Protein 5.7 L Albumin 2.1 L Globulin 3.6 Albumin/Globulin Ratio 0.6 L Nasal Screen MRSA (PCR) Hepatitis A IgM Ab Hep Bs Antigen Hep B Core IgM Ab Hepatitis C Antibody HCV RNA Qual (TMA) Blood Type Antibody Screen Crossmatch 10/06/18 18:41 WBC RBC Hgb 8.5 L Hct MCV MCH MCHC RDW Std Deviation RDW Coeff of Michelle Plt Count MPV Immature Gran % (Auto) Neut % (Auto) Lymph % (Auto) [place] % (Auto) Eos % (Auto) Baso % (Auto) Immature Gran # (Auto) Neut # (Auto) Lymph # (Auto) [place] # (Auto) Eos # (Auto) Baso # (Auto) Absolute Nucleated RBC Nucleated RBC % (auto) Neutrophils % (Manual) Band Neutrophils % Lymphocytes % (Manual) Prolymphocyte % Reactive Lymphs % (Man) Monocytes % (Manual) Eosinophils % (Manual) Basophils % (Manual) Metamyelocytes % (Man) Myelocytes % (Man) Promyelocytes % (Man) Blast Cells % (Manual) Plasma Cell % (Manual) Other Cells % Nucleated RBC % Neutrophils # (Manual) Band Neutrophils # Total Absolute Neuts Lymphocytes # (Manual) Prolymphocyte # Reactive Lymphs # Total Abs Lymphocytes Monocytes # (Manual) Eosinophils # (Manual) Basophils # (Manual) Metamyelocytes # (Man) Myelocytes # (Manual) Promyelocytes # (Man) Blast Cells # (Man) Plasma Cell # (Manual) Other Cells # Nucleated RBCs # (Man) Hypersegmented Neuts Hyposegmented Neuts Hypogranular Neuts Large Granular Lymphs # Lrg Granular Lymphs Hairy Cells Smudge Cells Toxic Granulation Toxic Vacuolation Dohle Bodies Bin Rods Platelet Estimate Hypogranular Platelets Clumped Platelets Giant Platelets Platelet Satelliting RBC Morphology Polychromasia Hypochromasia Poikilocytosis Basophilic Stippling Anisocytosis Microcytosis Macrocytosis Spherocytes Pappenheimer Bodies Sickle Cells Target Cells Tear Drop Cells Ovalocytes Stomatocytes [place] Bodies Echinocytes Acanthocytes (Spur) Rouleaux RBC Agglutinates Schistocytes RBC Morph Comment Sezary Cell PT INR Sodium Potassium Chloride Carbon Dioxide Anion Gap BUN Creatinine Est Cr Clr Drug Dosing Est GFR ( Amer) Est GFR (Non-Af Amer) BUN/Creatinine Ratio Glucose POC Glucose POC Glucose (other) Lactate Calcium Ionized Calcium Phosphorus Magnesium Total Bilirubin Direct Bilirubin AST ALT Alkaline Phosphatase Ammonia Total Protein Albumin Globulin Albumin/Globulin Ratio Nasal Screen MRSA (PCR) Hepatitis A IgM Ab Hep Bs Antigen Hep B Core IgM Ab Hepatitis C Antibody HCV RNA Qual (TMA) Blood Type Antibody Screen Crossmatch Medications Administered Current Inpatient Medications Thiamine HCl 100 mg/ Syringe 10 mls @ 2 mls/hr IV DAILY HUGH Stop: 11/03/18 22:14 Last Admin: 10/06/18 09:48 Dose: 2 mls/hr Documented by: Ceftriaxone Sodium 2,000 mg/ (Dextrose) 70 mls @ 140 mls/hr IV Q24H HUGH; P rotocol Stop: 10/15/18 00:00 Last Infusion: 10/06/18 01:30 Dose: Infused Documented by: Dexmedetomidine HCl 200 mcg/ (Sodium Chloride) 50 mls @ 0 mls/hr IV .Q0M HUGH; Protocol Stop: 10/09/18 19:44 Last Titration: 10/06/18 00:00 Dose: 0 mcg/kg/hr, 0 mls/hr Documented by: Parenteral Electrolytes (Normosol-R) 1,000 mls @ 80 mls/hr IV .[id number] HUGH Stop: 11/04/18 19:59 Last Admin: 10/06/18 10:16 Dose: 80 mls/hr Documented by: Norepinephrine Bitartrate 8 mg (/ Dextrose) 508 mls @ 63.25 mls/hr IV .Q8H2M HUGH; Protocol Stop: 11/05/18 02:29 Last Titration: 10/06/18 19:25 Dose: 0.18 mcg/kg/min, 56.9 mls/hr Documented by: Sodium Chloride (Nss) 250 mls @ 15 mls/hr IV .[id number] PRN PRN Reason: For Transfusion Stop: 11/05/18 08:06 Lorazepam (Ativan) 1 mg in 2 mls @ 2 mls/min IV ONE PRN; Protocol PRN Reason: EtoH Withdrawal AWSS 6-10 Stop: 11/05/18 08:54 Lorazepam (Ativan) 1 mg in 2 mls @ 2 mls/min IV UD PRN; Protocol PRN Reason: EtOH Withdrawl AWSS Score 6,7 Stop: 11/05/18 08:54 Lorazepam (Ativan) 2 mg in 4 mls @ 4 mls/min IV UD PRN; Protocol PRN Reason: EtOH Withdrawl AWSS Score 8,9 Stop: 11/05/18 08:54 Lorazepam (Ativan) 3 mg in 6 mls @ 4 mls/min IV ONCE PRN; Protocol PRN Reason: EtOH Withdrawl AWSS Score >=10 Stop: 11/05/18 08:54 Folic Acid 1 mg/ Syringe 10 mls @ 5 mls/min IV QAM HUGH Stop: 11/05/18 10:44 Last Admin: 10/06/18 10:46 Dose: 5 mls/min Documented by: Sodium Chloride (Nss) 250 mls @ 15 mls/hr IV .[id number] PRN PRN Reason: For Transfusion Stop: 11/05/18 14:19 Octreotide Acetate 500 mcg/ (Sodium Chloride) 105 mls @ 10 mls/hr IV .[id number] HUGH Stop: 11/05/18 14:29 Last Admin: 10/06/18 14:49 Dose: 10 mls/hr Documented by: Pantoprazole Sodium 40 mg/ (Dextrose) 100 mls @ 20 mls/hr IV Q5H HUGH Stop: 11/05/18 14:44 Last Admin: 10/06/18 18:27 Dose: 20 mls/hr Documented by: Metronidazole (Flagyl) 500 mg in 100 mls @ 100 mls/hr IV Q8H HUGH Stop: 10/08/18 17:59 Last Admin: 10/06/18 18:22 Dose: 100 mls/hr Documented by: Sodium Chloride (Nss) 250 mls @ 15 mls/hr IV .[id number] PRN PRN Reason: For Transfusion Stop: 11/05/18 18:36 Magnesium Oxide (Mag-Ox) 400 mg PO DAILY HUGH Stop: 11/04/18 08:59 Last Admin: 10/06/18 08:45 Dose: Not Given Documented by: Propranolol HCl (Inderal) 10 mg PO TID HUGH Stop: 11/04/18 20:59 Last Admin: 10/06/18 13:02 Dose: Not Given Documented by: Ranitidine HCl (Zantac) 150 mg PO HS [facility] Stop: 11/04/18 20:59 Last Admin: 10/05/18 20:56 Dose: 150 mg Documented by: Topiramate (Topamax) 100 mg PO BID [facility] Stop: 11/04/18 08:59 Last Admin: 10/06/18 08:45 Dose: Not Given Documented by: Resident Activity Tracking Resident Involvement: Resident Care Provided Care Provided: Adult Hospital Medicine (1) Alcohol withdrawal Complication of substance-induced condition: with unspecified complication Qualified Code(s): F10.239 - Alcohol dependence with withdrawal, unspecified
[2018-10-06] MEDS: metroNIDAZOLE 500 MG/100 ML BAG IV SCH (18:22)
[2018-10-06] MEDS ORDERED: PHYTONADIONE 10 MG in SODIUM CHLORIDE 0.9% 50 ML IV ONE (18:37)
[2018-10-06] MEDS ORDERED: GABAPENTIN 600 MG TAB PO SCH (22:00)
[2018-10-06 23:12] LABS: Appearance Urine Turbid (Clear); Blood Urine 2+ (Negative); Color Urine Dark Yellow; Glucose Urine UA Negative (Negative); Ketones Urine Negative (Negative); Leukocyte Esterase Urine 2+ (Negative); Nitrite Urine Positive (Negative); Protein Urine 1+ (Negative); Specific Gravity Urine 1.023 (1.000-1.030); Urobilinogen Urine Negative (Negative); WBC Urine Automated >30 /hpf (0-5)
[2018-10-06 23:33] LABS: Bilirubin Urine 3+ (Negative); Ictotest Urine Positive (Negative)
[2018-10-06 23:37] LABS: Bacteria Urine Automated 1+ (Negative); RBC Urine Automated 0-4 /hpf (0-4)
[2018-10-07 00:34] LABS: Hematocrit (blood only) 22.4 % (37-47); Hemoglobin 7.8 g/dL (12.0-16.0); Mean Corpuscular Volume 94.1 fL (80-100); RDW Standard Deviation 63.9 fL (36.4-46.3); Red Blood Count 2.38 M/uL (4.2-5.4); White Blood Count 8.19 K/uL (4.8-10.8)
[2018-10-07 00:36] LABS: Mean Corpuscular Hgb Conc 34.8 g/dL (32-36); Mean Platelet Volume 10.8 fL (7.4-10.4); Platelet Count 39 K/uL (130-400)
[2018-10-07 00:56] LABS: BUN Creatinine Ratio 5.4 (10-20); Calcium 6.8 mg/dl (8.5-10.1); Creatinine Clr Calc Pharmacy 32.7 ml/min; Est GFR (African American) 24.8; Est GFR (Non-African American) 21.4; Potassium 4.4 mmol/L (3.5-5.1)
[2018-10-07 01:00] LABS: Anisocytosis Present; Basophils # (auto) 0.01 K/uL (0-0.2); Basophils % (auto) 0.1 %; Eosinophils # (auto) 0.01 K/uL (0-0.5); Eosinophils % (auto) 0.1 %; Immature Granulocytes # (auto) 0.01 K/uL (0.00-0.02); Immature Granulocytes % (auto) 0.1 %; Lymphocytes # (auto) 1.22 K/uL (1.2-3.4); Lymphocytes % (auto) 14.9 %; Monocytes # (auto) 0.59 K/uL (0.11-0.59); Monocytes % (auto) 7.2 %; Neutrophils # (auto) 6.35 K/uL (1.4-6.5); Neutrophils % (auto) 77.6 %; Polychromasia 1+
[2018-10-07] MEDS: metroNIDAZOLE 500 MG/100 ML BAG IV SCH ×3 (02:23→17:17)
[2018-10-07] MEDS: PANTOprazole 40 MG in DEXTROSE 5% 100 ML IV SCH (04:11)
[2018-10-07 04:35] LABS: Hematocrit (blood only) 22.9 % (37-47); Hemoglobin 7.8 g/dL (12.0-16.0); Mean Corpuscular Hgb Conc 34.1 g/dL (32-36); Mean Corpuscular Volume 93.9 fL (80-100); Nucleated RBC # (auto) 0.04 K/uL (0-0); Nucleated RBC % (auto) 0.6 %; RDW Coefficient of Variation 20.1 % (11.5-14.5); RDW Standard Deviation 64.9 fL (36.4-46.3); Red Blood Count 2.44 M/uL (4.2-5.4); White Blood Count 6.97 K/uL (4.8-10.8)
[2018-10-07 04:44] LABS: INR 3.3 (0.9-1.1); Prothrombin Time 30.9 Seconds (9.0-12.0)
[2018-10-07 04:51] LABS: Mean Platelet Volume 10.3 fL (7.4-10.4); Platelet Count 35 K/uL (130-400)
[2018-10-07 05:02] LABS: Albumin Level 2.2 gm/dl (3.4-5.0); BUN Creatinine Ratio 5.4 (10-20); Bilirubin Direct 5.9 mg/dl (0-0.2); Calcium 6.7 mg/dl (8.5-10.1); Creatinine Clr Calc Pharmacy 32.8 ml/min; Est GFR (African American) 24.9; Est GFR (Non-African American) 21.5; Magnesium 2.4 mg/dl (1.8-2.4); Potassium 4.4 mmol/L (3.5-5.1)
[2018-10-07 05:09] LABS: Anisocytosis Present; Echinocytes 1+; Immature Granulocytes # (auto) 0.01 K/uL (0.00-0.02); Immature Granulocytes % (auto) 0.1 %; Lymphocytes # (auto) 1.04 K/uL (1.2-3.4); Lymphocytes % (auto) 14.9 %; Monocytes # (auto) 0.59 K/uL (0.11-0.59); Monocytes % (auto) 8.5 %; Neutrophils # (auto) 5.33 K/uL (1.4-6.5); Neutrophils % (auto) 76.5 %; Polychromasia 1+
[2018-10-07 05:11] LABS: Albumin Globulin Ratio 0.6 (0.9-2); Bilirubin,Total 8.4 mg/dl (0.2-1); Globulin 3.6 gm/dl (2.5-4.0); Phosphorus 3.7 mg/dl (2.5-4.9); Total Protein 5.8 gm/dl (6.4-8.2)
[2018-10-07] MEDS ORDERED: LACTULOSE SYRUP 30 GM/45 ML UDP PO STA (05:51)
[2018-10-07] MEDS: PROPRANOLOL HCL 10 MG TAB PO SCH ×3 (07:55→19:35)
[2018-10-07] MEDS: THIAMINE HCL 100 MG in SYRINGE 9 ML IV SCH (08:00)
[2018-10-07] MEDS: FOLIC ACID 1 MG in SYRINGE 9.8 ML IV SCH (08:00)
[2018-10-07] MEDS: MAGNESIUM OXIDE 400 MG TAB PO SCH (08:00)
[2018-10-07] MEDS: TOPIRAMATE 100 MG TAB PO SCH ×2 (08:00→19:36)
[2018-10-07] MEDS ORDERED: SODIUM CHLORIDE 0.9% 1000ML 1,000 ML IV SCH (08:15)
[2018-10-07] MEDS: NOREPINEPHRINE BIT INJ 8 MG in DEXTROSE 5% 500 ML IV SCH (08:41)
[2018-10-07] MEDS ORDERED: FAMOTIDINE 20MG/5ML IV PUSH IV SCH (09:00)
[2018-10-07] MEDS ORDERED: PHENobarbital 32.4 MG TAB PO SCH (09:00)
[2018-10-07] MEDS ORDERED: LACTULOSE SYRUP 30 GM/45 ML UDP GT SCH (09:00)
[2018-10-07] MEDS: prednisoLONE SYRUP 15 MG/5 ML BTL PO SCH (09:08)
[2018-10-07] MEDS: FAMOTIDINE 20 MG in SYRINGE 3 ML IV SCH ×2 (09:08→19:35)
--- NOTE | 2018-10-07 09:44 | Nephrology Progress Note ---
Date of Service October 07, 2018 Assessment & Plan (1) Acute kidney injury: 48-year-old female with acute kidney injury, hyperkalemia and metabolic acidosis in the setting of alcohol withdrawal seizure, cirrhosis, coagulopathy and elevated LFTs. Since admission her blood pressure has been persistently low. No urinalysis available from this admission however prior urinalysis showed trace proteinuria and microscopic hematuria. Rapid rise in creatinine could be secondary to dense ATN with persistent hypotension versus hepatorenal syndrome. Creatinine is stable, electrolyte abnormality improved however she remains oligo anuric with overall clinical deterioration. --continue supportive care with pressors to maintain blood pressure, if urine output remained low consider Bumex 3 mg x1 dose --kayexalate 30 gm po x 1 dose prn for K >5.5 --dose medications for GFR less than 10 --if no improvement, would not recommend [employer] , considering ESLD, overall prognosis guarded and unfortunately there is not much to offer. Will follow (2) Hyperkalemia: (3) Seizure: (4) Liver cirrhosis, alcoholic: (5) Elevated LFTs: Cesar Hernandez was seen and examined this morning with family at bedside. She remain less responsive, lethargic and obtunded. Creatinine staying stable, electrolyte abnormality resolved however she remain oliguric April, made only 250 mL over last 24 hours. Ammonia level elevated at 174. Physical Exam Constitutional: + acute distress, + ill appearing and + lethargic obtunded, icteric Respiratory: normal respiratory effort Auscultation: + diminished lung sounds Cardiovascular: Rate/Rhythm: regular rate and regular rhythm Heart Sounds: normal S1 and normal S2 Extremities: no pedal edema (Choose) Gastrointestinal (Abdomen): Inspection/Auscultation: + abdomen distended Neurologic: + obtunded Results & Data Vital Signs (Past 12 Hours) Vital Signs Temp Pulse Resp BP Pulse Ox 10/07/18 08:00 85 16 89/58 L 97 10/07/18 07:45 85 17 81/55 L 97 10/07/18 07:30 86 15 83/53 L 97 10/07/18 07:15 87 15 94/53 L 98 10/07/18 07:00 89 16 88/53 L 98 10/07/18 04:31 90 86/53 L 96 10/07/18 04:27 91 H 92/56 L 95 10/07/18 04:15 94 H 92/60 L 97 10/07/18 04:00 92 H 100/64 98 10/07/18 03:30 90 98/53 L 98 10/07/18 03:00 93 H 98/64 L 98 10/07/18 02:31 92 H 102/57 L 97 10/07/18 02:00 93 H 94/63 L 99 10/07/18 01:31 93 H 96/54 L 96 10/07/18 01:15 92 H 90/60 L 99 10/07/18 01:01 93 H 87/64 L 98 10/07/18 00:45 93 H 92/58 L 99 10/07/18 00:31 95 H 79/66 L 93 10/07/18 00:15 94 H 87/62 L 97 10/07/18 00:00 95 H 92/57 L 97 10/06/18 23:45 94 H 90/61 L 100 10/06/18 23:31 93 H 88/62 L 98 10/06/18 23:15 92 H 86/58 L 99 10/06/18 23:00 92 H 85/59 L 98 10/06/18 22:45 94 H 85/57 L 98 10/06/18 22:30 93 H 89/61 L 98 10/06/18 22:15 36.5 C 94 H 16 91/56 L 98 10/06/18 22:10 94 H 94/59 L 98 10/06/18 22:00 92 H 88/59 L 98 10/06/18 21:55 36.4 C L 93 H 18 88/59 L 98 10/06/18 21:45 97 H 85/61 L 93 10/06/18 21:39 36.4 C L 93 H 25 H 98/54 L 98
--- NOTE | 2018-10-07 10:32 | CT Scan Report ---
CT head/brain wo con CLINICAL HISTORY: 48 years-old Female with Hyperreflexia on the left upper extremity and left lower e xtremity. Acute symptoms. TECHNIQUE: Multiple axial CT images of the head were obtained without contrast. A dose lowering tech nique was utilized adhering to the principles of ALARA. CT DOSE: 2240.88 mGy.cm COMPARISON: CT head 08/27/2018. FINDINGS: No acute intracranial hemorrhage, midline shift, intracranial mass, hydrocephalus, territorial ischem ia or abnormal extra-axial collection. The calvarium is intact. Trace mastoid effusions. Paranasal sinuses appear clear. Soft tissues and o rbits are unremarkable. IMPRESSION: No acute intracranial abnormality. The above report was generated using voice recognition software. It may contain grammatical, syntax o r spelling errors. Electronically signed by: Sam Etienne M.D. 10/07/2018 10:31 AM
[2018-10-07] MEDS: NORMOSOL-R 1,000 ML IV SCH ×2 (10:49→22:19)
[2018-10-07 11:15] LABS: INR 3.6 (0.9-1.1); Prothrombin Time 34.1 Seconds (9.0-12.0)
--- NOTE | 2018-10-07 11:50 | CT Scan Report ---
CT OF THE ABDOMEN AND PELVIS WITH ORAL CONTRAST CLINICAL HISTORY: blood loss anemia ?retroperitoneal COMPARISON STUDY: CT of the abdomen and pelvis June 28, 2018. Abdominal ultrasound October 05, 2018. TECHNIQUE: Axial images of the abdomen and pelvis were obtained without IV contrast. Oral contrast wa s administered. Study was performed utilizing automated exposure control for dose reduction and accor ding to ALARA principles. FINDINGS: The tip of the nasogastric tube is within the proximal body of the stomach. Visual portions the lower chest demonstrate trace bilateral pleural effusions with associated atelectasis. No pneuma tosis, free air or portal venous gas is present. Evaluation of the abdomen and pelvis is suboptimal a s unenhanced exam. Moderate volume ascites is noted. In addition, there is layering hyperdense materi al within the pelvis with hematocrit effect. This suggests hemoperitoneum. The amount of blood is dif ficult to quantify on this exam. The liver is markedly abnormal appearance with fatty infiltration. T he liver is shrunken and irregular. Sensitivity for detection of hepatic lesions is diminished on thi s unenhanced exam the size of the spleen is normal. Adrenal glands, kidneys and pancreas are normal. Is no hydronephrosis. There is no biliary or pancreatic ductal dilatation. Wall thickening of the a s ending colon and transverse colon is noted. A rectal catheter is in place. Plasencia balloon is in place. No suspicious osseous lesion is noted. There is no evidence for a bowel obstruction. Anasarca is not ed. There is no retroperitoneal hematoma. IMPRESSION: 1. Moderate ascites with hematocrit effect within the pelvis consistent with hemoperitoneum. The amou nt of blood is difficult to quantify but likely moderate. Findings discussed with Jacoby Mcrae at time of dictation. 2. Marked fatty infiltration of the liver with cirrhosis. 3. Right colon wall thickening which may be related to portal hypertension or represent colitis. Electronically signed by: Jose Maza M.D. 10/07/2018 11:49 AM
--- NOTE | 2018-10-07 12:24 | Surgery Consultation ---
Date of Consultation October 07, 2018 Assessment & Plan (1) Hepatic insufficiency: Patient with hepatic insufficiency with worsening and now evidence of intra-abdominal hemorrhage. She is not a surgical candidate with her current hepatic function and coagulopathy. Especially in light of her ascites pro time and platelet count. First-line would be attempted interventional radiology and a blood bank to support her bleeding. Apparently the medical team is going to discuss with the family the level of treatment we pursue. It may be that the patient would not be considered a candidate for transfer by the tertiary care center. History of Present Illness Attending Physician: Alex Hayden, DO History of Present Illness We were asked to see the patient for what appears to be intra-abdominal hemorrhage. She had a CAT scan today which shows significant ascites with at least blood in the pelvis and difficult to assess the volume. Patient has had fluctuations in her hematocrit indicating hemorrhage. She has a history of ethanol use with cirrhosis and hepatic insufficiency and seizure disorder. She has been hospitalized multiple times for this problem. C urrently her pro time has increased from 16.7 on admission to 38. Her platelet count has fallen from 41,000-35,000. Her albumin is 0.16 and her ammonia is 184. Her liver function studies are significantly elevated with a total bilirubin of 8.4 and AST of 5619. All indicators of hepatic failure. Allergies Allergy/AdvReac Type Severity Reaction Status Date / Time acetaminophen [From Tylenol] AdvReac Intermediate HX Verified 10/04/18 19:22 CIRRHOSIS NSAIDS (Non-Steroidal AdvReac Intermediate HX Verified 10/04/18 19:22 Anti-Inflamma CIRRHOSIS phenytoin AdvReac Intermediate LOSS OF Verified 10/04/18 19:22 EQUILIBRIUM Home Medications Home Medications Medication Instructions Recorded Confirmed Type pantoprazole [Protonix] 40 mg PO DAILY 28 Days #28 tab 09/16/18 10/04/18 Rx Potassium Tab 1 tab PO DAILY 10/04/18 10/04/18 History folic acid 1 mg PO DAILY 10/04/18 10/04/18 History magnesium oxide 400 mg PO DAILY 10/04/18 10/04/18 History penicillin V potassium 500 mg PO QID 10/04/18 10/04/18 History ranitidine HCl 150 mg PO HS 10/04/18 10/04/18 History topiramate [Topamax] 100 mg PO BID 10/04/18 10/04/18 History Patient History Medical History Hypertension (Acute) Hypokalemia Seizures Pancreatitis (Chronic) Schizoaffective disorder (Chronic) Arthritis Depression Liver disease Thyroid disease Gastritis Liver cancer (Chronic) Alcoholism Acute recurrent pancreatitis (Acute Unknown) Viral hepatitis C (Chronic Unknown) Chronic pancreatitis (Chronic Unknown) Cirrhosis, alcoholic (Chronic) Chronic renal failure, stage 3 (moderate) (Chronic) Polysubstance abuse (Acute) Depression with suicidal ideation (Acute) TIA (transient ischemic attack) (Acute) Pancytopenia (Acute) Cholecystectomy planned Cholecystectomy planned Hyponatremia Surgical History History of appendectomy Family History Mother Multiple sclerosis Father , age 52 Acute coronary occlusion without mycocardial infarction Social History Preferred Language: [place] Communication Ability: Impaired Visual Impairment: No Limitations Design Analyst Required: No Beliefs That Will Affect Care: None marital status: Current Living Situation: Significant Other current occupational status: unemployed and disabled Other Information That Helps Us Care for You: No Feels Safe at Home: Yes Safety Concerns: Feels Safe At This Time Smoking Status: Current every day smoker Tobacco Type: cigarettes Cigarettes Per Day: 20 Do You Dip or Chew Tobacco: No Second Hand Exposure: No Tobacco Cessation Education Requested by Patient: No Hx Alcohol Use: Yes Alcohol type: beer Hx Substance Use: Yes (beer and cigarettes) substance use type: does not use Last Used Substance: Just Prior to Arrival Review of Systems Review of Systems: All systems reviewed & are unremarkable except as noted in HPI & below Physical Exam Physical Exam: Patient is currently in her ICU bed with an NG tube in place draining clear fluid. Her skin is jaundiced she appears to be breathing comfortably. Her heart rate appears to be regular and she is slightly hypotensive. Her abdomen is distended with minimal tenderness. Results & Data Vital Signs (Past 12 Hours) Vital Signs Pulse Resp BP Pulse Ox 10/07/18 11:30 81 20 95/62 L 94 10/07/18 11:00 79 15 89/56 L 94 10/07/18 10:00 86 20 126/84 93 10/07/18 09:30 84 18 94/63 L 98 10/07/18 09:00 87 20 100/57 L 96 10/07/18 08:30 85 19 90/59 L 96 10/07/18 08:00 85 16 89/58 L 97 10/07/18 07:45 85 17 81/55 L 97 10/07/18 07:30 86 15 83/53 L 97 10/07/18 07:15 87 15 94/53 L 98 10/07/18 07:00 89 16 88/53 L 98 10/07/18 04:31 90 86/53 L 96 10/07/18 04:27 91 H 92/56 L 95 10/07/18 04:15 94 H 92/60 L 97 10/07/18 04:00 92 H 100/64 98 10/07/18 03:30 90 98/53 L 98 10/07/18 03:00 93 H 98/64 L 98 10/07/18 02:31 92 H 102/57 L 97 10/07/18 02:00 93 H 94/63 L 99 10/07/18 01:31 93 H 96/54 L 96 10/07/18 01:15 92 H 90/60 L 99 10/07/18 01:01 93 H 87/64 L 98 10/07/18 00:45 93 H 92/58 L 99 10/07/18 00:31 95 H 79/66 L 93 I did review her CAT scan
--- NOTE | 2018-10-07 12:43 | Critical Care Progress Note ---
Date of Service October 07, 2018 Assessment & Plan (1) Admitted to intensive care unit: Reason Critically Ill: Metabolic encephalopathy secondary to alcohol withdrawal and hyperammonia Neuro - [facility] ICU: Patient obtunded. Continue with alcohol withdrawal protocol. Treat elevated ammonia level Cardiac - Hypotensive. Levophed weaned off. No prior evidence of echocardiogram. If patient continues with hypotension, consider echocardiogram Respiratory - Patient continues to do well with minimal amounts of supplemental O2. Continue with end-tidal monitoring. Continue telemetry GI - Patient has acute anemia. NG tube with no output suggestive of upper GI bleed. No melena, hematochezia, BRBPR. Gastroenterology consulted. Appreciate Dr. Delarosa input. Continue to treat elevated ammonia level with lactulose. RENAL/LYTES - Nephrology consulted. Appreciate Dr. Link's input. Appears to be developing hepatorenal syndrome. Acute hepatic failure and chronic alcoholic cirrhosis. Pressors weaned off. No indication for dialysis at this point. Continue to follow electrolytes and replete as necessary - Plasencia catheter in place and draining to gravity ENDO - No indication of diabetes mellitus. Random glucose 119 HEME - Transfused 3 units of PRBCs 10/06/18. Continue to follow serial labs CT Abd/Pelvis today No evidence of acute GI bleed ID - UTI Continue rocephin and metronidazole LINES/IV ACCESS - Right IJ 3 lumen CVC placed 10/06/18 DVT PROPHYLAXIS - No chemical prophylaxis secondary to acute blood loss anemia CCT: 60 minutes independent of any procedures Thank you for including us in the care of this patient. Please refer to Dr. Tesfaye's addendum for further recommendations. (2) Acute encephalopathy: Secondary to elevated ammonia level and ethanol withdrawal Acute on chronic ethanol abuse CT head today to rule out bleed secondary to thrombocytopenia Continue with neurochecks per protocol (3) Acute alcohol intoxication in patient with alcoholism with blood alcohol level over 0.3: Metabolic encephalopathy with alcohol level of 134 Continue lactulose and titrate to 3 bowel movements daily We will discuss alcohol abstention when encephalopathy resolves (4) Hyperammonemia: Lactulose 30 g per NG tube every 2 hours until 3 bowel movements Follow serial labs every 6 hours (5) Hepatic insufficiency: Fatty liver 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 (7) DVT prophylaxis: No chemical prophylaxis SCDs Subjective Attending: Dr. Tesfaye This is a 48 yo female that was admitted to the ICU for management of alcohol withdrawal. She has had metabolic encephalopathy since arriving in the intensive care unit. Ammonia level was found to be elevated today and she is continued on lactulose titrated to 3 bowel movements per day. The patient seem to have discomfort in the bowel when receiving bowel prep and also light discomfort with palpation. A CT of the abdomen pelvis was completed and appears to show hemoperitoneum. At this point patient continues to be obtunded and is unable to provide review of systems. Full discussion was had with the patient's mother, step father, Paramore. Review of Systems Review of Systems: Unable to obtain secondary to metabolic encephalopathy and inability of patient to communicate. Physical Exam Physical Exam: GENERAL : No acute distress EYES: No icterus, gaze conjugate. Pupils equal round and reactive to light NOSE: No evidence of epistaxis. Nasal cannula with end-tidal monitor in place. NG tube in place with no evidence of coffee-ground emesis MOUTH: No lesions or candidiasis. Mucosa appears moist. No evidence of bleeding. NECK: Supple. Right IJ catheter in place with no evidence of bleeding. Dressing is in place and dry. Trachea is midline. LUNGS: CTA B/L, no wheezes, rales or rhonchi HEART: Regular, rate controlled ABDOMEN: Soft, NT, ND, BS Present. No rebound tenderness or guarding. Bowel sounds are quiet EXTREMITIES: +1 bilateral LE edema, pedal pulses intact equal bilaterally. No evidence of open sores. NEURO: Encephalopathic secondary to elevated ammonia levels. Hyperreflexic with bicep, brachiocephalic, patellar tendons 3-4 out of 4 on the left upper and lower extremity. Results & Data Vital Signs (Past 12 Hours) Vital Signs Pulse Resp BP Pulse Ox 10/07/18 11:30 81 20 95/62 L 94 10/07/18 11:00 79 15 89/56 L 94 10/07/18 10:00 86 20 126/84 93 10/07/18 09:30 84 18 94/63 L 98 10/07/18 09:00 87 20 100/57 L 96 10/07/18 08:30 85 19 90/59 L 96 10/07/18 08:00 85 16 89/58 L 97 10/07/18 07:45 85 17 81/55 L 97 10/07/18 07:30 86 15 83/53 L 97 10/07/18 07:15 87 15 94/53 L 98 10/07/18 07:00 89 16 88/53 L 98 10/07/18 04:31 90 86/53 L 96 10/07/18 04:27 91 H 92/56 L 95 10/07/18 04:15 94 H 92/60 L 97 10/07/18 04:00 92 H 100/64 98 10/07/18 03:30 90 98/53 L 98 10/07/18 03:00 93 H 98/64 L 98 10/07/18 02:31 92 H 102/57 L 97 10/07/18 02:00 93 H 94/63 L 99 10/07/18 01:31 93 H 96/54 L 96 10/07/18 01:15 92 H 90/60 L 99 10/07/18 01:01 93 H 87/64 L 98 10/07/18 00:45 93 H 92/58 L 99 Laboratory Results 10/07/18 10:43 10/07/18 04:24 Ammonia level [address] head/brain wo con CLINICAL HISTORY: 48 years-old Female with Hyperreflexia on the left upper extremity and left lower extremity. Acute symptoms. TECHNIQUE: Multiple axial CT images of the head were obtained without contrast. A dose lowering technique was utilized adhering to the principles of ALARA. CT DOSE: 2240.88 mGy.cm COMPARISON: CT head 08/27/2018. FINDINGS: No acute intracranial hemorrhage, midline shift, intracranial mass, hydrocephalus, territorial ischemia or abnormal extra-axial collection. The calvarium is intact. Trace mastoid effusions. Paranasal sinuses appear clear. Soft tissues and orbits are unremarkable. IMPRESSION: No acute intracranial abnormality. The above report was generated using voice recognition software. It may contain grammatical, syntax or spelling errors. Electronically signed by: Sam Etienne M.D. 10/07/2018 10:[address] OF THE ABDOMEN AND PELVIS WITH ORAL CONTRAST CLINICAL HISTORY: blood loss anemia ?retroperitoneal COMPARISON STUDY: CT of the abdomen and pelvis June 28, 2018. Abdominal ultrasound October 05, 2018. TECHNIQUE: Axial images of the abdomen and pelvis were obtained without IV contrast. Oral contrast was administered. Study was performed utilizing automated exposure control for dose reduction and according to ALARA principles. FINDINGS: The tip of the nasogastric tube is within the proximal body of the stomach. Visual portions the lower chest demonstrate trace bilateral pleural effusions with associated atelectasis. No pneumatosis, free air or portal venous gas is present. Evaluation of the abdomen and pelvis is suboptimal as unenhanced exam. Moderate volume ascites is noted. In addition, there is layering hyperdense material within the pelvis with hematocrit effect. This suggests hemoperitoneum. The amount of blood is difficult to quantify on this exam. The l iver is markedly abnormal appearance with fatty infiltration. The liver is shrunken and irregular. Sensitivity for detection of hepatic lesions is diminished on this unenhanced exam the size of the spleen is normal. Adrenal glands, kidneys and pancreas are normal. Is no hydronephrosis. There is no b iliary or pancreatic ductal dilatation. Wall thickening of the a sending colon and transverse colon is noted. A rectal catheter is in place. Plasencia balloon is in place. No suspicious osseous lesion is noted. There is no evidence for a bowel obstruction. Anasarca is noted. There is no retroperitoneal hematoma. IMPRESSION: 1. Moderate ascites with hematocrit effect within the pelvis consistent with hemoperitoneum. The amount of blood is difficult to quantify but likely moderate. Findings discussed with Jacoby Mcrae at time of dictation. 2. Marked fatty infiltration of the liver with cirrhosis. 3. Right colon wall thickening which may be related to portal hypertension or represent colitis. Electronically signed by: Jose Maza M.D. 10/07/2018 11:49 AM Medications Administered Lactulose 30 g via NG tube every 2 hours -being titrated to 3 bowel movements daily See EMR for additional medications administered Critical Care Time Critical Care Time: Yes Total Critical Care Time: 60
[2018-10-07] MEDS ORDERED: SODIUM CHLORIDE 0.9% 250 ML IV PRN ×2 (13:40→17:13)
[2018-10-07] MEDS ORDERED: PHYTONADIONE 10 MG in SODIUM CHLORIDE 0.9% 50 ML IV STA (13:52)
--- NOTE | 2018-10-07 14:06 | Gastroenterology Progress Note ---
Date of Service October 07, 2018 Assessment & Plan (1) Anemia: secondary to hemoperitoneum. hemoperitoneum--Hgb stable. Not a surgical candidate. If pt wakes up, has improvement in renal and liver failure and then rebleeds would consider transfer to tertiary center for IR acute liver failure--INR ? worse but LFTS better. Consider steroids for ETOH hepatitisa as maddrey discriminant function high but contraindicated if infection so may not be able to use. obtundation--today may be from ammonia high, CT head neg hepatic encephalopathy recommend lactulose [id number] per NG until bms--discussed with critical care cirrhois--ETOH and ? hep C ARF--renal consulted but apparently not a dialysi candidate elevated lactic acid--could be septic, continue abx, Ecoli from urine. Blood cultures done today. Overall poor short term prognosis. Continue supportive care for now. Subjective cc f/u anemia, cirrhosis HPI Pt obtunded. History from nursing staff and critical care MD Dr Mcrae and chart. Pt had one dose of lactulose so far today. No stools output. CT a/p c/w hemoperitonuem. Hgb stable. Ammonia markedly elevated this am. Review of Systems Review of Systems: Unobtainable due to cognitive status Physical Exam Constitutional: WD/WN, vitals as above Respiratory: normal respiratory effort, lungs clear to auscultation Gastrointestinal (Abdomen): abd pos bs, soft, no guarding nor rebound Psychiatric: obtunded Results & Data Vital Signs (Past 12 Hours) Vital Signs Pulse Resp BP Pulse Ox 10/07/18 12:31 76 13 88/55 L 95 10/07/18 12:00 78 19 118/73 92 10/07/18 11:30 81 20 95/62 L 94 10/07/18 11:00 79 15 89/56 L 94 10/07/18 10:00 86 20 126/84 93 10/07/18 09:30 84 18 94/63 L 98 10/07/18 09:00 87 20 100/57 L 96 10/07/18 08:30 85 19 90/59 L 96 10/07/18 08:00 85 16 89/58 L 97 10/07/18 07:45 85 17 81/55 L 97 10/07/18 07:30 86 15 83/53 L 97 10/07/18 07:15 87 15 94/53 L 98 10/07/18 07:00 89 16 88/53 L 98 10/07/18 04:31 90 86/53 L 96 10/07/18 04:27 91 H 92/56 L 95 10/07/18 04:15 94 H 92/60 L 97 10/07/18 04:00 92 H 100/64 98 10/07/18 03:30 90 98/53 L 98 10/07/18 03:00 93 H 98/64 L 98 10/07/18 02:31 92 H 102/57 L 97 10/07/18 02:00 93 H 94/63 L 99
[2018-10-07] MEDS: LACTULOSE SYRUP 30 GM/45 ML UDP GT SCH ×5 (14:36→22:19)
--- NOTE | 2018-10-07 15:50 | Family Medicine Progress Note ---
Date of Service October 07, 2018 Assessment & Plan (1) Elevated LFTs: 48 y/o female with chronic Hx of alcohol abuse presenting with seizures likely related to alcohol withdrawal. Acute encephalopathy -2/2 chronic alcoholism, renal failure and liver failure -phenobarb dc'd. Will cont MV's, thiamine, and benzodiazepines to prevent withdrawal -Lactulose for hepatic encephalopathy. Cont trend ammonia Anemia -No s/s of GI bleeding, no vomiting of blood or blood per rectum. NG placed and no blood, so no UGI bleeding. Considering retroperitoneal bleed/Intra-abdominal. No hx of varices--> octreotide -Will cont PPI ranitidine and Protonix for PUD -Transfuse prn. Supportive care focused on hemodynamics -CT Abd: Moderate ascites with hematocrit effect within the pelvis consistent with hemoperitoneum. The amount of blood is difficult to quantify but likely moderate -Sx: pt is not a surgical candidate with her current hepatic function and coagulopathy especially in light of her ascites pro time and platelet count -[facility]: due to lack of a localized blood vessel as well as her coagulopathy, IR approach not feasible either. If pt has rebleeding and if localization was able to be obtained with a CTA or bleeding scan, then possible IR approach given we are able to give enough FFP and platelets -In the interim, we will attempt to prevent rebleed with aggressive measures: additional FFP, low threshold to give a unit of platelets -Placed on ceftriaxone/flagyl for empiric coverage 2/2 abd bleeding. Also E Coli in urine coverage Acute liver failure/Cirrhosis -Rising INR and LFT initially suggested acute liver failure on top of known cirrhosis. Loss of synthetic capability and shock liver. Now, LFTs have actually plateaued -very poor prognosis, will cont supportive care. Not a liver transplant candidate given ETOH use -Cirrhosis- from ETOH. Prelim Hep C positive. Other serology pending. 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 Ov erall prognosis guarded -will avoid nephrotoxins -developing hepatorenal syndrome in the setting of acute hepatic failure and chronic alcoholic cirrhosis Elevated lactic acid -Could be septic vs ischemic bowel. As above, supportive care as she is not a surgical candidate Seizure -Likely due to acute alcohol withdrawal -continue Topamax FEN- NPO currently DVT Prophylaxis: low risk Full Code Dispo: ICU Supervising Physician Co-Signing Physician Notes I personally examined the patient and verified all cooper points of history and exam, discussed case, and agree with decision making with Dr Rossi. no meaningful HPI or ROS. case d/w ICU and GI. ICU PA updated mother. pt revisted later in the day, still no meaningful response, but is having BMs vitals noted, in bed without meaningful response. breathing unlabored lungs clear, no visible signs of distress or pain. cardio reg no r/m/g. abd soft nd nt (+) BS, no guarding/rebound/rigidity. ext no c/c. no focal neuro deficits. cirrhosis, EtOH abuse/withdrawal, withdrawal seizures, acute blood loss anemia, concern on developing hemorrhagic shock, acute decompensated liver failure -supportive care focused on hemodynamics -Intra-abdominal bleeding noted, appears the bleeding has stopped. Surgery input noted. Case discussed with interventional radiology at [place], due to lack of a localized blood vessel as well as her coagulopathy, interventional radiology approach would not be feasible. Should she have rebleeding, if localization was able to be obtained with a CT angiogram or bleeding scan (both of which were present their own problemsCT with renal failure, bleeding scan with the time it takes to get a positive result) and we were able to give enough FFP and platelets, then possibly an interventional radiology approach may be undertaken -Given all of the limitations to actually stop bleeding, it seems that an aggressive approach to prevent rebleed makes the most sensewe will give additional FFP, low threshold to give a unit of platelets. Her situation is quite tenuous and given that it is intra-abdominal bleeding, with very little that would cause tamponade, a rebleed would likely be fatal -continue hemodynamic support, transfuse as needed -LFTs have actually plateaued, prednisolone started for alcoholic hepatitis, lactulose for hepatic encephalopathy -Empiric antibiotic coverage given massive amount of bleeding into the abdominal cavity (Rocephin and Flagyl) -otherwise as above Review of Systems Review of Systems: All systems reviewed & are unremarkable except as noted in HPI & below Physical Exam Constitutional: + ill appearing Eyes: sclera icteric ENMT: external ear and nose normal, oropharynx normal Respiratory: normal respiratory effort, lungs clear to auscultation Cardiovascular: RRR, no murmur, no edema Gastrointestinal (Abdomen): normal bowel sounds, soft, nontender, no hepatosplenomegaly Skin: no rashes, warm and dry Neurologic: hypereflexive L>R Psychiatric: lethargic Results & Data Vital Signs (Past 12 Hours) Vital Signs Temp Pulse Resp BP Pulse Ox 10/07/18 15:27 36.3 C L 83 16 102/73 96 10/07/18 15:12 36.3 C L 83 16 101/69 94 10/07/18 14:54 36.3 C L 82 12 96/65 L 97 10/07/18 14:00 74 13 89/56 L 96 10/07/18 13:30 74 14 99/59 L 96 10/07/18 13:00 78 17 106/60 97 10/07/18 12:31 76 13 88/55 L 95 10/07/18 12:00 78 19 118/73 92 10/07/18 11:30 81 20 95/62 L 94 10/07/18 11:00 79 15 89/56 L 94 10/07/18 10:00 86 20 126/84 93 10/07/18 09:30 84 18 94/63 L 98 10/07/18 09:00 87 20 100/57 L 96 10/07/18 08:30 85 19 90/59 L 96 10/07/18 08:00 85 16 89/58 L 97 10/07/18 07:45 85 17 81/55 L 97 10/07/18 07:30 86 15 83/53 L 97 10/07/18 07:15 87 15 94/53 L 98 10/07/18 07:00 89 16 88/53 L 98 10/07/18 04:31 90 86/53 L 96 10/07/18 04:27 91 H 92/56 L 95 10/07/18 04:15 94 H 92/60 L 97 10/07/18 04:00 92 H 100/64 98 Laboratory Results Laboratory Results - last 24 hr 10/04/18 10/05/18 10/06/18 19:01 22:13 22:56 WBC RBC Hgb Hct MCV MCH MCHC RDW Std Deviation RDW Coeff of Michelle Plt Count MPV Immature Gran % (Auto) Neut % (Auto) Lymph % (Auto) [place] % (Auto) Eos % (Auto) Baso % (Auto) Immature Gran # (Auto) Neut # (Auto) Lymph # (Auto) [place] # (Auto) Eos # (Auto) Baso # (Auto) Absolute Nucleated RBC Nucleated RBC % (auto) Polychromasia Anisocytosis Echinocytes PT INR Sodium Potassium Chloride Carbon Dioxide Anion Gap BUN Creatinine Est Cr Clr Drug Dosing Est GFR ( Amer) Est GFR (Non-Af Amer) BUN/Creatinine Ratio Glucose POC Glucose Calcium Ionized Calcium Phosphorus Magnesium Total Bilirubin Direct Bilirubin AST ALT Alkaline Phosphatase Ammonia Total Protein Albumin Globulin Albumin/Globulin Ratio Urine Color Dark Yellow Urine Appearance Turbid A Urine pH 5.0 Ur Specific [place] 1.023 Urine Protein 1+ H Urine Glucose (UA) Negative Urine Ketones Negative Urine Blood 2+ H Urine Nitrite Positive A Urine Bilirubin 3+ H Urine Urobilinogen Negative Ur Leukocyte Esterase 2+ H Urine WBC (Auto) >30 H Urine RBC (Auto) 0-4 U Hyaline Cast (Auto) 1-5 U Epithel Cells (Auto) 10-20 H Urine Bacteria (Auto) 1+ H Urine Yeast Not Reportable Miscellaneous Test REPORT Blood Type A Positive Antibody Screen NEGATIVE Crossmatch See Detail 10/07/18 10/07/18 10/07/18 00:18 00:18 04:24 WBC 8.19 RBC 2.38 L Hgb 7.8 L Hct 22.4 L MCV 94.1 MCH 32.8 MCHC 34.8 RDW Std Deviation 63.9 H RDW Coeff of Michelle 20.0 H Plt Count 39 L MPV 10.8 H Immature Gran % (Auto) 0.1 Neut % (Auto) 77.6 Lymph % (Auto) 14.9 [place] % (Auto) 7.2 Eos % (Auto) 0.1 Baso % (Auto) 0.1 Immature Gran # (Auto) 0.01 Neut # (Auto) 6.35 Lymph # (Auto) 1.22 [place] # (Auto) 0.59 Eos # (Auto) 0.01 Baso # (Auto) 0.01 Absolute Nucleated RBC Nucleated RBC % (auto) Polychromasia 1+ Anisocytosis Present Echinocytes PT INR Sodium 132 L 133 L Potassium 4.4 D 4.4 Chloride 101 101 Carbon Dioxide 25 25 Anion Gap 6.0 7.0 BUN 14 14 Creatinine 2.53 H 2.52 H Est Cr Clr Drug Dosing 32.7 32.8 Est GFR ( Amer) 24.8 24.9 Est GFR (Non-Af Amer) 21.4 21.5 BUN/Creatinine Ratio 5.4 L 5.4 L Glucose 158 H 124 H POC Glucose Calcium 6.8 L 6.7 L Ionized Calcium Phosphorus 3.7 D Magnesium 2.4 Total Bilirubin 8.4 H Direct Bilirubin 5.9 H AST 5619 H ALT 920 H Alkaline Phosphatase 167 H Ammonia Total Protein 5.8 L Albumin 2.2 L Globulin 3.6 Albumin/Globulin Ratio 0.6 L Urine Color Urine Appearance Urine pH Ur Specific [place] Urine Protein Urine Glucose (UA) Urine Ketones Urine Blood Urine Nitrite Urine Bilirubin Urine Urobilinogen Ur Leukocyte Esterase Urine WBC (Auto) Urine RBC (Auto) U Hyaline Cast (Auto) U Epithel Cells (Auto) Urine Bacteria (Auto) Urine Yeast Miscellaneous Test Blood Type Antibody Screen Crossmatch 10/07/18 10/07/18 10/07/18 04:24 04:24 04:24 WBC 6.97 RBC 2.44 L Hgb 7.8 L Hct 22.9 L MCV 93.9 MCH 32.0 MCHC 34.1 RDW Std Deviation 64.9 H RDW Coeff of Michelle 20.1 H Plt Count 35 L MPV 10.3 Immature Gran % (Auto) 0.1 Neut % (Auto) 76.5 Lymph % (Auto) 14.9 [place] % (Auto) 8.5 Eos % (Auto) 0.0 Baso % (Auto) 0.0 Immature Gran # (Auto) 0.01 Neut # (Auto) 5.33 Lymph # (Auto) 1.04 L [place] # (Auto) 0.59 Eos # (Auto) 0.00 Baso # (Auto) 0.00 Absolute Nucleated RBC 0.04 H Nucleated RBC % (auto) 0.6 Polychromasia 1+ Anisocytosis Present Echinocytes 1+ PT 30.9 H INR 3.3 H Sodium Potassium Chloride Carbon Dioxide Anion Gap BUN Creatinine Est Cr Clr Drug Dosing Est GFR ( Amer) Est GFR (Non-Af Amer) BUN/Creatinine Ratio Glucose POC Glucose Calcium Ionized Calcium 0.88 L Phosphorus Magnesium Total Bilirubin Direct Bilirubin AST ALT Alkaline Phosphatase Ammonia Total Protein Albumin Globulin Albumin/Globulin Ratio Urine Color Urine Appearance Urine pH Ur Specific [place] Urine Protein Urine Glucose (UA) Urine Ketones Urine Blood Urine Nitrite Urine Bilirubin Urine Urobilinogen Ur Leukocyte Esterase Urine WBC (Auto) Urine RBC (Auto) U Hyaline Cast (Auto) U Epithel Cells (Auto) Urine Bacteria (Auto) Urine Yeast Miscellaneous Test Blood Type Antibody Screen Crossmatch 10/07/18 10/07/18 10/07/18 04:24 06:07 10:43 WBC RBC Hgb 7.9 L Hct MCV MCH MCHC RDW Std Deviation RDW Coeff of Michelle Plt Count MPV Immature Gran % (Auto) Neut % (Auto) Lymph % (Auto) [place] % (Auto) Eos % (Auto) Baso % (Auto) Immature Gran # (Auto) Neut # (Auto) Lymph # (Auto) [place] # (Auto) Eos # (Auto) Baso # (Auto) Absolute Nucleated RBC Nucleated RBC % (auto) Polychromasia Anisocytosis Echinocytes PT INR Sodium Potassium Chloride Carbon Dioxide Anion Gap BUN Creatinine Est Cr Clr Drug Dosing Est GFR ( Amer) Est GFR (Non-Af Amer) BUN/Creatinine Ratio Glucose POC Glucose 119 H Calcium Ionized Calcium Phosphorus Magnesium Total Bilirubin Direct Bilirubin AST ALT Alkaline Phosphatase Ammonia 184.0 H Total Protein Albumin Globulin Albumin/Globulin Ratio Urine Color Urine Appearance Urine pH Ur Specific [place] Urine Protein Urine Glucose (UA) Urine Ketones Urine Blood Urine Nitrite Urine Bilirubin Urine Urobilinogen Ur Leukocyte Esterase Urine WBC (Auto) Urine RBC (Auto) U Hyaline Cast (Auto) U Epithel Cells (Auto) Urine Bacteria (Auto) Urine Yeast Miscellaneous Test Blood Type Antibody Screen Crossmatch 10/07/18 10/07/18 10/07/18 10:43 10:48 14:36 WBC RBC Hgb Hct MCV MCH MCHC RDW Std Deviation RDW Coeff of Michelle Plt Count MPV Immature Gran % (Auto) Neut % (Auto) Lymph % (Auto) [place] % (Auto) Eos % (Auto) Baso % (Auto) Immature Gran # (Auto) Neut # (Auto) Lymph # (Auto) [place] # (Auto) Eos # (Auto) Baso # (Auto) Absolute Nucleated RBC Nucleated RBC % (auto) Polychromasia Anisocytosis Echinocytes PT 34.1 H INR 3.6 H Sodium Potassium Chloride Carbon Dioxide Anion Gap BUN Creatinine Est Cr Clr Drug Dosing Est GFR ( Amer) Est GFR (Non-Af Amer) BUN/Creatinine Ratio Glucose POC Glucose 105 H Calcium Ionized Calcium Phosphorus Magnesium Total Bilirubin Direct Bilirubin AST ALT Alkaline Phosphatase Ammonia 113.0 H Total Protein Albumin Globulin Albumin/Globulin Ratio Urine Color Urine Appearance Urine pH Ur Specific [place] Urine Protein Urine Glucose (UA) Urine Ketones Urine Blood Urine Nitrite Urine Bilirubin Urine Urobilinogen Ur Leukocyte Esterase Urine WBC (Auto) Urine RBC (Auto) U Hyaline Cast (Auto) U Epithel Cells (Auto) Urine Bacteria (Auto) Urine Yeast Miscellaneous Test Blood Type Antibody Screen Crossmatch 10/07/18 10/07/18 10/07/18 17:16 17:16 18:21 WBC RBC Hgb 8.1 L Hct MCV MCH MCHC RDW Std Deviation RDW Coeff of Michelle Plt Count MPV Immature Gran % (Auto) Neut % (Auto) Lymph % (Auto) [place] % (Auto) Eos % (Auto) Baso % (Auto) Immature Gran # (Auto) Neut # (Auto) Lymph # (Auto) [place] # (Auto) Eos # (Auto) Baso # (Auto) Absolute Nucleated RBC Nucleated RBC % (auto) Polychromasia Anisocytosis Echinocytes PT INR Sodium Potassium Chloride Carbon Dioxide Anion Gap BUN Creatinine Est Cr Clr Drug Dosing Est GFR ( Amer) Est GFR (Non-Af Amer) BUN/Creatinine Ratio Glucose POC Glucose 122 H Calcium Ionized Calcium Phosphorus Magnesium Total Bilirubin Direct Bilirubin AST ALT Alkaline Phosphatase Ammonia Total Protein Albumin Globulin Albumin/Globulin Ratio Urine Color Urine Appearance Urine pH Ur Specific [place] Urine Protein Urine Glucose (UA) Urine Ketones Urine Blood Urine Nitrite Urine Bilirubin Urine Urobilinogen Ur Leukocyte Esterase Urine WBC (Auto) Urine RBC (Auto) U Hyaline Cast (Auto) U Epithel Cells (Auto) Urine Bacteria (Auto) Urine Yeast Miscellaneous Test Blood Type A Positive Antibody Screen NEGATIVE Crossmatch See Detail Medications Administered Current Inpatient Medications Heparin Sodium (Beef Lung) (Heparin Sod 10 Unit/Ml Flush) 5 ml FLUSH PRN PRN PRN Reason: Flush Stop: 11/06/18 00:19 Thiamine HCl 100 mg/ Syringe 10 mls @ 2 mls/hr IV DAILY [facility] Stop: 11/03/18 22:14 Last Admin: 10/07/18 08:00 Dose: 2 mls/hr Documented by: Ceftriaxone Sodium 2,000 mg/ (Dextrose) 70 mls @ 140 mls/hr IV Q24H [facility]; Pr otocol Stop: 10/15/18 00:00 Last Infusion: 10/07/18 00:07 Dose: Infused Documented by: Parenteral Electrolytes (Normosol-R) 1,000 mls @ 80 mls/hr IV .[id number] [facility] Stop: 11/04/18 19:59 Last Infusion: 10/07/18 15:01 Dose: 0 mls/hr Documented by: Norepinephrine Bitartrate 8 mg (/ Dextrose) 508 mls @ 0 mls/hr IV .Q0M [facility]; Protocol Stop: 11/05/18 02:29 Last Admin: 10/07/18 08:41 Dose: Not Given Documented by: Lorazepam (Ativan) 1 mg in 2 mls @ 2 mls/min IV ONE PRN; Protocol PRN Reason: EtoH Withdrawal AWSS 6-10 Stop: 11/05/18 08:54 Folic Acid 1 mg/ Syringe 10 mls @ 5 mls/min IV QAM [facility] Stop: 11/05/18 10:44 Last Admin: 10/07/18 08:00 Dose: 5 mls/min Documented by: Sodium Chloride (Nss) 250 mls @ 15 mls/hr IV .[id number] PRN PRN Reason: For Transfusion Stop: 11/05/18 14:19 Metronidazole (Flagyl) 500 mg in 100 mls @ 100 mls/hr IV Q8H [facility] Stop: 10/08/18 17:59 Last Infusion: 10/07/18 18:36 Dose: Infused Documented by: Sodium Chloride (Nss) 250 mls @ 15 mls/hr IV .[id number] PRN PRN Reason: For Transfusion Stop: 11/05/18 18:36 Famotidine 20 mg/ Syringe 5 mls @ 2.5 mls/min IV BID [facility] Stop: 11/06/18 08:59 Last Admin: 10/07/18 09:08 Dose: 2.5 mls/min Documented by: Sodium Chloride (Nss) 250 mls @ 15 mls/hr IV .[id number] PRN PRN Reason: For Transfusion Stop: 11/06/18 13:39 Sodium Chloride (Nss) 250 mls @ 15 mls/hr IV .[id number] PRN PRN Reason: For Transfusion Stop: 11/06/18 17:12 Lactulose (Chronulac) 30 gm GT Q2H [facility] Stop: 11/06/18 08:59 Last Admin: 10/07/18 17:17 Dose: 30 gm Documented by: Magnesium Oxide (Mag-Ox) 400 mg PO DAILY [facility] Stop: 11/04/18 08:59 Last Admin: 10/07/18 08:00 Dose: 400 mg Documented by: Prednisone (Prelone) 40 mg PO DAILY [facility] Stop: 11/06/18 08:59 Last Admin: 10/07/18 09:08 Dose: 40 mg Documented by: Propranolol HCl (Inderal) 10 mg PO TID [facility] Stop: 11/04/18 20:59 Last Admin: 10/07/18 14:36 Dose: 10 mg Documented by: Ranitidine HCl (Zantac) 150 mg PO HS [facility] Stop: 11/04/18 20:59 Last Admin: 10/06/18 21:30 Dose: 150 mg Documented by: Topiramate (Topamax) 100 mg PO BID [facility] Stop: 11/04/18 08:59 Last Admin: 10/07/18 08:00 Dose: 100 mg Documented by: Resident Activity Tracking Resident Involvement: Resident Care Provided Care Provided: Adult [facility]
[2018-10-08] MEDS: LACTULOSE SYRUP 30 GM/45 ML UDP GT SCH ×12 (00:35→21:56)
[2018-10-08] MEDS: cefTRIAXone SODIUM 2,000 MG in DEXTROSE 5% 50 ML IV SCH (00:36)
[2018-10-08] MEDS: metroNIDAZOLE 500 MG/100 ML BAG IV SCH ×2 (01:59→09:27)
[2018-10-08 04:51] LABS: Hematocrit (blood only) 25.1 % (37-47); Hemoglobin 8.5 g/dL (12.0-16.0); Mean Corpuscular Hgb Conc 33.9 g/dL (32-36); Mean Corpuscular Volume 93.7 fL (80-100); RDW Coefficient of Variation 19.7 % (11.5-14.5); RDW Standard Deviation 63.2 fL (36.4-46.3); Red Blood Count 2.68 M/uL (4.2-5.4); White Blood Count 3.87 K/uL (4.8-10.8)
[2018-10-08 04:57] LABS: Mean Platelet Volume 11.1 fL (7.4-10.4); Platelet Count 30 K/uL (130-400)
[2018-10-08 05:12] LABS: Albumin Level 2.3 gm/dl (3.4-5.0); BUN Creatinine Ratio 8.3 (10-20); Bilirubin Direct 6.8 mg/dl (0-0.2); Calcium 6.8 mg/dl (8.5-10.1); Creatinine Clr Calc Pharmacy 41.5 ml/min; Est GFR (African American) 32.3; Est GFR (Non-African American) 27.9; INR 4.2 (0.9-1.1); Magnesium 2.7 mg/dl (1.8-2.4); Potassium 4.1 mmol/L (3.5-5.1); Prothrombin Time 39.2 Seconds (9.0-12.0)
[2018-10-08 05:20] LABS: Eosinophils # (auto) 0.01 K/uL (0-0.5); Eosinophils % (auto) 0.3 %; Giant Platelets 1+; Lymphocytes # (auto) 0.43 K/uL (1.2-3.4); Lymphocytes % (auto) 11.1 %; Monocytes # (auto) 0.41 K/uL (0.11-0.59); Monocytes % (auto) 10.6 %; Neutrophils # (auto) 3.02 K/uL (1.4-6.5); Target Cells 1+
[2018-10-08 05:31] LABS: Albumin Globulin Ratio 0.6 (0.9-2); Bilirubin,Total 9.5 mg/dl (0.2-1); Globulin 3.8 gm/dl (2.5-4.0); Phosphorus 2.9 mg/dl (2.5-4.9); Total Protein 6.1 gm/dl (6.4-8.2)
--- NOTE | 2018-10-08 06:37 | Progress Note ---
Date of Service October 08, 2018 Assessment & Plan (1) Acute encephalopathy: H/H seems to have stabilized- blood products given encephalopathy not improved. No plan for surgical intervention Subjective see A/P Results & Data Vital Signs (Past 12 Hours) Vital Signs Temp Pulse BP Pulse Ox 10/08/18 04:30 77 119/83 94 10/08/18 04:01 36.7 C 77 110/80 95 10/08/18 03:31 83 118/83 95 10/08/18 03:01 80 131/88 95 10/08/18 02:30 76 115/78 94 10/08/18 02:00 76 114/79 95 10/08/18 01:31 76 116/84 97 10/08/18 01:01 77 120/70 96 10/08/18 00:31 77 106/80 96 10/08/18 00:01 36.9 C 74 99/79 L 96 10/07/18 23:31 75 97/78 L 95 10/07/18 23:01 74 109/81 96 10/07/18 22:31 73 106/75 95 10/07/18 22:01 79 98/57 L 95 10/07/18 22:00 79 94 10/07/18 21:30 74 107/67 96 10/07/18 21:01 74 99/69 L 95 10/07/18 20:00 36.7 C 77 110/79 95 10/07/18 19:00 74 95/66 L 93
[2018-10-08] MEDS: THIAMINE HCL 100 MG in SYRINGE 9 ML IV SCH (07:56)
[2018-10-08] MEDS: MAGNESIUM OXIDE 400 MG TAB PO SCH (07:56)
[2018-10-08] MEDS: FOLIC ACID 1 MG in SYRINGE 9.8 ML IV SCH (07:56)
[2018-10-08] MEDS: FAMOTIDINE 20 MG in SYRINGE 3 ML IV SCH (07:56)
[2018-10-08] MEDS: prednisoLONE SYRUP 15 MG/5 ML BTL PO SCH (07:57)
[2018-10-08] MEDS: RIFAXIMIN 200 MG TABLET PO SCH ×3 (07:58→21:57)
[2018-10-08] MEDS: TOPIRAMATE 100 MG TAB PO SCH (07:58)
[2018-10-08] MEDS: PROPRANOLOL HCL 10 MG TAB PO SCH ×3 (07:59→21:57)
[2018-10-08] MEDS ORDERED: CALCIUM GLUCONATE 10% 10 ML VIAL IV SCH (09:00)
--- NOTE | 2018-10-08 09:00 | Nephrology Progress Note ---
Date of Service October 08, 2018 Assessment & Plan (1) Acute kidney injury: 48-year-old female with acute kidney injury, hyperkalemia and metabolic acidosis in the setting of alcohol withdrawal seizure, cirrhosis, coagulopathy and elevated LFTs. Since admission her blood pressure has been persistently low. No urinalysis available from this admission however prior urinalysis showed trace proteinuria and microscopic hematuria. Rapid rise in creatinine could be secondary to dense ATN with persistent hypotension versus hepatorenal syndrome. Continues to be encephalopathy, CT brain was negative. CT abdomen pelvis showed hemoperitoneum. Renal function seems to be improving with improvement in blood pressure however remained coagulopathic. --continue supportive care, consider Bumex 2 mg IV prn however, no need for now as UO started to improve --kayexalate 30 gm po x 1 dose prn for K >5.5 --if no improvement, would not recommend [employer] , considering ESLD, overall prognosis guarded and unfortunately there is not much to offer. Will follow (2) Hyperkalemia: (3) Seizure: (4) Liver cirrhosis, alcoholic: (5) Elevated LFTs: Cesar Hernandez was seen examined in her room this morning. Remained obtunded, vital sign improving, blood pressure better, off of pressors. Renal function continues to improve started to make urine may total 750 mL last 24 hours. LFTs improving however INR remained elevated. Ammonia still elevated at 103 Physical Exam Constitutional: + acute distress, + ill appearing and + lethargic Respiratory: normal respiratory effort Auscultation: + diminished lung sounds Cardiovascular: Rate/Rhythm: regular rate and regular rhythm Heart Sounds: normal S1 and normal S2 Extremities: no pedal edema (Choose) Gastrointestinal (Abdomen): Inspection/Auscultation: + abdomen distended Neurologic: + obtunded Results & Data Vital Signs (Past 12 Hours) Vital Signs Temp Pulse Resp BP Pulse Ox 10/08/18 07:00 80 13 114/82 96 10/08/18 06:01 77 128/83 96 10/08/18 05:00 76 120/77 95 10/08/18 04:30 77 119/83 94 10/08/18 04:01 36.7 C 77 110/80 95 10/08/18 03:31 83 118/83 95 10/08/18 03:01 80 131/88 95 10/08/18 02:30 76 115/78 94 10/08/18 02:00 76 114/79 95 10/08/18 01:31 76 116/84 97 10/08/18 01:01 77 120/70 96 10/08/18 00:31 77 106/80 96 10/08/18 00:01 36.9 C 74 99/79 L 96 10/07/18 23:31 75 97/78 L 95 10/07/18 23:01 74 109/81 96 10/07/18 22:31 73 106/75 95 10/07/18 22:01 79 98/57 L 95 10/07/18 22:00 79 94 10/07/18 21:30 74 107/67 96 10/07/18 21:01 74 99/69 L 95
[2018-10-08] MEDS: CALCIUM GLUCONATE 10% 1,000 MG in SODIUM CHLORIDE 0.9% 50 ML IV SCH ×3 (09:27→21:57)
[2018-10-08] MEDS: NORMOSOL-R 1,000 ML IV SCH ×2 (09:28→21:57)
[2018-10-08] MEDS ORDERED: GABAPENTIN 600 MG TAB PO SCH (10:00)
--- NOTE | 2018-10-08 11:13 | Critical Care Progress Note ---
Date of Service October 08, 2018 Assessment & Plan (1) Admitted to intensive care unit: Reason Critically Ill: Metabolic encephalopathy secondary to alcohol withdrawal and hepatic encephalopathy. Neuro - [facility] ICU: Patient obtunded. Continue with alcohol withdrawal protocol. Treat elevated ammonia level Cardiac - Hypotensive. Levophed weaned off. No prior evidence of echocardiogram. If patient continues with hypotension, consider echocardiogram Respiratory - Patient continues to do well with minimal amounts of supplemental O2. Continue with end-tidal monitoring. Continue telemetry GI - Patient has acute anemia. NG tube with no output suggestive of upper GI bleed. No melena, hematochezia, BRBPR. Gastroenterology consulted. Appreciate Dr. Delarosa input. Continue to treat elevated ammonia level with lactulose. RENAL/LYTES - Nephrology consulted. Appreciate Dr. Link's input. Appears to be developing hepatorenal syndrome. Acute hepatic failure and chronic alcoholic cirrhosis. Pressors weaned off. No indication for dialysis at this point. Continue to follow electrolytes and replete as necessary - Plasencia catheter in place and draining to gravity ENDO - No indication of diabetes mellitus. Random glucose 119 HEME - Transfused 3 units of PRBCs 10/06/18. Continue to follow serial labs CT Abd/Pelvis today No evidence of acute GI bleed ID - UTI Continue rocephin and metronidazole LINES/IV ACCESS - Right IJ 3 lumen CVC placed 10/06/18 DVT PROPHYLAXIS - No chemical prophylaxis secondary to acute blood loss anemia CCT: 60 minutes independent of any procedures Thank you for including us in the care of this patient. Please refer to Dr. Tesfaye's addendum for further recommendations. (2) Acute encephalopathy: Secondary to elevated ammonia level and ethanol withdrawal Acute on chronic ethanol abuse CT head today to rule out bleed secondary to thrombocytopenia Continue with neurochecks per protocol (3) Acute alcohol intoxication in patient with alcoholism with blood alcohol l evel over 0.3: Metabolic encephalopathy with alcohol level of 134 Continue lactulose and titrate to 3 bowel movements daily We will discuss alcohol abstention when encephalopathy resolves (4) Hyperammonemia: Lactulose 30 g per NG tube every 2 hours until 3 bowel movements Follow serial labs every 6 hours (5) Hepatic insufficiency: Alcoholic cirrhosis, end-stage liver disease acutely decompensated, with meld score of 38 GI consulted and following Continue lactulose. We will discuss plan and goals of care with family medicine team and update family (6) Blood loss anemia: CT abdomen pelvis with evidence of hemoperitoneum, hemoglobin now stable, no surgical option At this point patient hemoglobin appears to be stable Will continue to monitor hemoglobin and transfuse as necessary (7) DVT prophylaxis: No chemical prophylaxis SCDs (8) Pancytopenia: Due to hepatic cirrhosis with portal hypertension and hypersplenism. Subjective Patient remains markedly encephalopathic, unresponsive. She has been weaned off of her Levophed; she is mildly hypotensive likely due to underlying liver disease and portal hypertension. Her INR and ammonia level continue to rise despite vitamin K and lactulose. CT scan of the abdomen and pelvis yesterday showed large intra-abdominal hematoma but hemoglobin has been stable overnight. Review of Systems Review of Systems: Unobtainable due to reduced consciousness Physical Exam Constitutional: + ill appearing, + altered mental status and + edematous Eyes: Gerardo EOMI sclera icteric Neck: Supple no meningismus no JVD, right IJ triple-lumen catheter site without inflammation Respiratory: Clear bilaterally, symmetrical breath sounds Cardiovascular: Regular rhythm no murmurs rubs or gallops Gastrointestinal (Abdomen): Soft mildly distended no apparent tenderness bowel sounds normoactive Musculoskeletal: No deformity no cyanosis Skin: Jaundiced, no rash petechia or purpura Neurologic: Unresponsive, no focality appreciated Results & Data Vital Signs (Past 12 Hours) Vital Signs Temp Pulse Resp BP Pulse Ox 10/08/18 10:00 70 12 109/78 94 10/08/18 09:00 71 12 98/81 L 96 10/08/18 08:00 74 12 130/81 95 10/08/18 07:00 80 13 114/82 96 10/08/18 06:01 77 128/83 96 10/08/18 05:00 76 120/77 95 10/08/18 04:30 77 119/83 94 10/08/18 04:01 36.7 C 77 110/80 95 10/08/18 03:31 83 118/83 95 10/08/18 03:01 80 131/88 95 10/08/18 02:30 76 115/78 94 10/08/18 02:00 76 114/79 95 10/08/18 01:31 76 116/84 97 10/08/18 01:01 77 120/70 96 10/08/18 00:31 77 106/80 96 10/08/18 00:01 36.9 C 74 99/79 L 96 10/07/18 23:31 75 97/78 L 95 Laboratory Results 10/08/18 10/08/18 10/08/18 Range/Units 07:49 04:41 04:41 WBC 3.87 L (4.8-10.8) K/uL RBC 2.68 L (4.2-5.4) M/uL Hgb 8.5 L (12.0-16.0) g/dL Hct 25.1 L (37-47) % MCV 93.7 (80-100) fL MCH 31.7 (25-34) pg MCHC 33.9 (32-36) g/dL RDW Std Deviation 63.2 H (36.4-46.3) fL RDW Coeff of Michelle 19.7 H (11.5-14.5) % Plt Count 30 L (130-400) K/uL MPV 11.1 H (7.4-10.4) fL Immature Gran % (Auto) 0.0 % Neut % (Auto) 78.0 % Lymph % (Auto) 11.1 % Morrison % (Auto) 10.6 % Eos % (Auto) 0.3 % Baso % (Auto) 0.0 % Immature Gran # (Auto) 0.00 (0.00-0.02) K/uL Neut # (Auto) 3.02 (1.4-6.5) K/uL Lymph # (Auto) 0.43 L (1.2-3.4) K/uL Morrison # (Auto) 0.41 (0.11-0.59) K/uL Eos # (Auto) 0.01 (0-0.5) K/uL Baso # (Auto) 0.00 (0-0.2) K/uL Giant Platelets 1+ Target Cells 1+ PT (9.0-12.0) Seconds INR (0.9-1.1) Sodium (136-145) mmol/L Potassium (3.5-5.1) mmol/L Chloride (98-107) mmol/L Carbon Dioxide (21-32) mmol/L Anion Gap (3-11) BUN (7-18) mg/dl Creatinine (0.6-1.2) mg/dl Est Cr Clr Drug Dosing ml/min Est GFR ( Amer) Est GFR (Non-Af Amer) BUN/Creatinine Ratio (10-20) Glucose (70-99) mg/dl POC Glucose (70-99) Calcium (8.5-10.1) mg/dl Ionized Calcium (1.12-1.32) mmol/L Phosphorus (2.5-4.9) mg/dl Magnesium (1.8-2.4) mg/dl Total Bilirubin (0.2-1) mg/dl Direct Bilirubin (0-0.2) mg/dl AST (15-37) U/L ALT (12-78) U/L Alkaline Phosphatase (45-117) U/L Ammonia 103.2 H 165.0 H (11-32) umol/L Total Protein (6.4-8.2) gm/dl Albumin (3.4-5.0) gm/dl Globulin (2.5-4.0) gm/dl Albumin/Globulin Ratio (0.9-2) Miscellaneous Test Blood Type Antibody Screen Crossmatch 10/08/18 10/08/18 10/08/18 Range/Units 04:41 04:41 04:41 WBC (4.8-10.8) K/uL RBC (4.2-5.4) M/uL Hgb (12.0-16.0) g/dL Hct (37-47) % MCV (80-100) fL MCH (25-34) pg MCHC (32-36) g/dL RDW Std Deviation (36.4-46.3) fL RDW Coeff of Michelle (11.5-14.5) % Plt Count (130-400) K/uL MPV (7.4-10.4) fL Immature Gran % (Auto) % Neut % (Auto) % Lymph % (Auto) % Morrison % (Auto) % Eos % (Auto) % Baso % (Auto) % Immature Gran # (Auto) (0.00-0.02) K/uL Neut # (Auto) (1.4-6.5) K/uL Lymph # (Auto) (1.2-3.4) K/uL Morrison # (Auto) (0.11-0.59) K/uL Eos # (Auto) (0-0.5) K/uL Baso # (Auto) (0-0.2) K/uL Giant Platelets Target Cells PT 39.2 H (9.0-12.0) Seconds INR 4.2 H (0.9-1.1) Sodium 135 L (136-145) mmol/L Potassium 4.1 (3.5-5.1) mmol/L Chloride 103 (98-107) mmol/L Carbon Dioxide 26 (21-32) mmol/L Anion Gap 6.0 (3-11) BUN 17 (7-18) mg/dl Creatinine 2.03 H D (0.6-1.2) mg/dl Est Cr Clr Drug Dosing 41.5 ml/min Est GFR ( Amer) 32.3 Est GFR (Non-Af Amer) 27.9 BUN/Creatinine Ratio 8.3 L (10-20) Glucose 128 H (70-99) mg/dl POC Glucose (70-99) Calcium 6.8 L (8.5-10.1) mg/dl Ionized Calcium 0.87 L (1.12-1.32) mmol/L Phosphorus 2.9 (2.5-4.9) mg/dl Magnesium 2.7 H (1.8-2.4) mg/dl Total Bilirubin 9.5 H (0.2-1) mg/dl Direct Bilirubin 6.8 H (0-0.2) mg/dl AST 2691 H (15-37) U/L ALT 643 H (12-78) U/L Alkaline Phosphatase 171 H (45-117) U/L Ammonia (11-32) umol/L Total Protein 6.1 L (6.4-8.2) gm/dl Albumin 2.3 L (3.4-5.0) gm/dl Globulin 3.8 (2.5-4.0) gm/dl Albumin/Globulin Ratio 0.6 L (0.9-2) Miscellaneous Test Blood Type Antibody Screen Crossmatch 10/08/18 10/07/18 10/07/18 Range/Units 01:47 23:41 19:43 WBC (4.8-10.8) K/uL RBC (4.2-5.4) M/uL Hgb (12.0-16.0) g/dL Hct (37-47) % MCV (80-100) fL MCH (25-34) pg MCHC (32-36) g/dL RDW Std Deviation (36.4-46.3) fL RDW Coeff of Michelle (11.5-14.5) % Plt Count (130-400) K/uL MPV (7.4-10.4) fL Immature Gran % (Auto) % Neut % (Auto) % Lymph % (Auto) % Morrison % (Auto) % Eos % (Auto) % Baso % (Auto) % Immature Gran # (Auto) (0.00-0.02) K/uL Neut # (Auto) (1.4-6.5) K/uL Lymph # (Auto) (1.2-3.4) K/uL Morrison # (Auto) (0.11-0.59) K/uL Eos # (Auto) (0-0.5) K/uL Baso # (Auto) (0-0.2) K/uL Giant Platelets Target Cells PT (9.0-12.0) Seconds INR (0.9-1.1) Sodium (136-145) mmol/L Potassium (3.5-5.1) mmol/L Chloride (98-107) mmol/L Carbon Dioxide (21-32) mmol/L Anion Gap (3-11) BUN (7-18) mg/dl Creatinine (0.6-1.2) mg/dl Est Cr Clr Drug Dosing ml/min Est GFR ( Amer) Est GFR (Non-Af Amer) BUN/Creatinine Ratio (10-20) Glucose (70-99) mg/dl POC Glucose 134 H (70-99) Calcium (8.5-10.1) mg/dl Ionized Calcium (1.12-1.32) mmol/L Phosphorus (2.5-4.9) mg/dl Magnesium (1.8-2.4) mg/dl Total Bilirubin (0.2-1) mg/dl Direct Bilirubin (0-0.2) mg/dl AST (15-37) U/L ALT (12-78) U/L Alkaline Phosphatase (45-117) U/L Ammonia 197.0 H 161.6 H (11-32) umol/L Total Protein (6.4-8.2) gm/dl Albumin (3.4-5.0) gm/dl Globulin (2.5-4.0) gm/dl Albumin/Globulin Ratio (0.9-2) Miscellaneous Test Blood Type Antibody Screen Crossmatch 10/07/18 10/07/18 10/07/18 Range/Units 18:21 17:16 17:16 WBC (4.8-10.8) K/uL RBC (4.2-5.4) M/uL Hgb 8.1 L (12.0-16.0) g/dL Hct (37-47) % MCV (80-100) fL MCH (25-34) pg MCHC (32-36) g/dL RDW Std Deviation (36.4-46.3) fL RDW Coeff of Michelle (11.5-14.5) % Plt Count (130-400) K/uL MPV (7.4-10.4) fL Immature Gran % (Auto) % Neut % (Auto) % Lymph % (Auto) % Morrison % (Auto) % Eos % (Auto) % Baso % (Auto) % Immature Gran # (Auto) (0.00-0.02) K/uL Neut # (Auto) (1.4-6.5) K/uL Lymph # (Auto) (1.2-3.4) K/uL Morrison # (Auto) (0.11-0.59) K/uL Eos # (Auto) (0-0.5) K/uL Baso # (Auto) (0-0.2) K/uL Giant Platelets Target Cells PT (9.0-12.0) Seconds INR (0.9-1.1) Sodium (136-145) mmol/L Potassium (3.5-5.1) mmol/L Chloride (98-107) mmol/L Carbon Dioxide (21-32) mmol/L Anion Gap (3-11) BUN (7-18) mg/dl Creatinine (0.6-1.2) mg/dl Est Cr Clr Drug Dosing ml/min Est GFR ( Amer) Est GFR (Non-Af Amer) BUN/Creatinine Ratio (10-20) Glucose (70-99) mg/dl POC Glucose 122 H (70-99) Calcium (8.5-10.1) mg/dl Ionized Calcium (1.12-1.32) mmol/L Phosphorus (2.5-4.9) mg/dl Magnesium (1.8-2.4) mg/dl Total Bilirubin (0.2-1) mg/dl Direct Bilirubin (0-0.2) mg/dl AST (15-37) U/L ALT (12-78) U/L Alkaline Phosphatase (45-117) U/L Ammonia (11-32) umol/L Total Protein (6.4-8.2) gm/dl Albumin (3.4-5.0) gm/dl Globulin (2.5-4.0) gm/dl Albumin/Globulin Ratio (0.9-2) Miscellaneous Test Blood Type A Positive Antibody Screen NEGATIVE Crossmatch See Detail 10/07/18 10/07/18 10/07/18 Range/Units 14:36 10:48 10:43 WBC (4.8-10.8) K/uL RBC (4.2-5.4) M/uL Hgb (12.0-16.0) g/dL Hct (37-47) % MCV (80-100) fL MCH (25-34) pg MCHC (32-36) g/dL RDW Std Deviation (36.4-46.3) fL RDW Coeff of Michelle (11.5-14.5) % Plt Count (130-400) K/uL MPV (7.4-10.4) fL Immature Gran % (Auto) % Neut % (Auto) % Lymph % (Auto) % Morrison % (Auto) % Eos % (Auto) % Baso % (Auto) % Immature Gran # (Auto) (0.00-0.02) K/uL Neut # (Auto) (1.4-6.5) K/uL Lymph # (Auto) (1.2-3.4) K/uL Morrison # (Auto) (0.11-0.59) K/uL Eos # (Auto) (0-0.5) K/uL Baso # (Auto) (0-0.2) K/uL Giant Platelets Target Cells PT 34.1 H (9.0-12.0) Seconds INR 3.6 H (0.9-1.1) Sodium (136-145) mmol/L Potassium (3.5-5.1) mmol/L Chloride (98-107) mmol/L Carbon Dioxide (21-32) mmol/L Anion Gap (3-11) BUN (7-18) mg/dl Creatinine (0.6-1.2) mg/dl Est Cr Clr Drug Dosing ml/min Est GFR ( Amer) Est GFR (Non-Af Amer) BUN/Creatinine Ratio (10-20) Glucose (70-99) mg/dl POC Glucose 105 H (70-99) Calcium (8.5-10.1) mg/dl Ionized Calcium (1.12-1.32) mmol/L Phosphorus (2.5-4.9) mg/dl Magnesium (1.8-2.4) mg/dl Total Bilirubin (0.2-1) mg/dl Direct Bilirubin (0-0.2) mg/dl AST (15-37) U/L ALT (12-78) U/L Alkaline Phosphatase (45-117) U/L Ammonia 113.0 H (11-32) umol/L Total Protein (6.4-8.2) gm/dl Albumin (3.4-5.0) gm/dl Globulin (2.5-4.0) gm/dl Albumin/Globulin Ratio (0.9-2) Miscellaneous Test Blood Type Antibody Screen Crossmatch 10/05/18 10/04/18 Range/Units 22:13 19:01 WBC (4.8-10.8) K/uL RBC (4.2-5.4) M/uL Hgb (12.0-16.0) g/dL Hct (37-47) % MCV (80-100) fL MCH (25-34) pg MCHC (32-36) g/dL RDW Std Deviation (36.4-46.3) fL RDW Coeff of Michelle (11.5-14.5) % Plt Count (130-400) K/uL MPV (7.4-10.4) fL Immature Gran % (Auto) % Neut % (Auto) % Lymph % (Auto) % Morrison % (Auto) % Eos % (Auto) % Baso % (Auto) % Immature Gran # (Auto) (0.00-0.02) K/uL Neut # (Auto) (1.4-6.5) K/uL Lymph # (Auto) (1.2-3.4) K/uL Morrison # (Auto) (0.11-0.59) K/uL Eos # (Auto) (0-0.5) K/uL Baso # (Auto) (0-0.2) K/uL Giant Platelets Target Cells PT (9.0-12.0) Seconds INR (0.9-1.1) Sodium (136-145) mmol/L Potassium (3.5-5.1) mmol/L Chloride (98-107) mmol/L Carbon Dioxide (21-32) mmol/L Anion Gap (3-11) BUN (7-18) mg/dl Creatinine (0.6-1.2) mg/dl Est Cr Clr Drug Dosing ml/min Est GFR ( Amer) Est GFR (Non-Af Amer) BUN/Creatinine Ratio (10-20) Glucose (70-99) mg/dl POC Glucose (70-99) Calcium (8.5-10.1) mg/dl Ionized Calcium (1.12-1.32) mmol/L Phosphorus (2.5-4.9) mg/dl Magnesium (1.8-2.4) mg/dl Total Bilirubin (0.2-1) mg/dl Direct Bilirubin (0-0.2) mg/dl AST (15-37) U/L ALT (12-78) U/L Alkaline Phosphatase (45-117) U/L Ammonia (11-32) umol/L Total Protein (6.4-8.2) gm/dl Albumin (3.4-5.0) gm/dl Globulin (2.5-4.0) gm/dl Albumin/Globulin Ratio (0.9-2) Miscellaneous Test REPORT Blood Type A Positive Antibody Screen NEGATIVE Crossmatch See Detail Medications Administered Home Medications Medication Instructions Recorded Confirmed Last Taken pantoprazole [Protonix] 40 mg PO DAILY 28 Days #28 tab 09/16/18 10/04/18 Unknown Potassium Tab 1 tab PO DAILY 10/04/18 10/04/18 Unknown folic acid 1 mg PO DAILY 10/04/18 10/04/18 Unknown magnesium oxide 400 mg PO DAILY 10/04/18 10/04/18 Unknown penicillin V potassium 500 mg PO QID 10/04/18 10/04/18 10/04/18 ranitidine HCl 150 mg PO HS 10/04/18 10/04/18 Unknown topiramate [Topamax] 100 mg PO BID 10/04/18 10/04/18 Unknown Active Medications Generic Name Dose Route Start Last Admin Trade Name Reji PRN Reason Stop Dose Admin Thiamine HCl 100 mg/ Syringe 10 mls @ 2 mls/hr 10/04/18 22:15 10/08/18 07:56 IV 11/03/18 22:14 2 mls/hr DAILY HUGH Administration Ceftriaxone Sodium 2,000 mg/ 70 mls @ 140 mls/hr 10/05/18 00:00 10/08/18 01:08 Dextrose IV 10/15/18 00:00 Infused Q24H HUGH Infusion Protocol Parenteral Electrolytes 1,000 mls @ 80 mls/hr 10/05/18 20:00 10/08/18 09:28 Normosol-R IV 11/04/18 19:59 80 mls/hr .[id number] HUGH Administration Folic Acid 1 mg/ Syringe 10 mls @ 5 mls/min 10/06/18 10:45 10/08/18 07:56 IV 11/05/18 10:44 5 mls/min QAM HUGH Administration Metronidazole 500 mg in 100 mls @ 100 mls/hr 10/06/18 18:00 10/08/18 10:20 Flagyl IV 10/08/18 17:59 Infused Q8H HUGH Infusion Calcium Gluconate 1,000 mg/ 60 mls @ 240 mls/hr 10/08/18 09:00 10/08/18 09:59 Sodium Chloride IV 11/07/18 08:59 Infused TID HUGH Infusion Lactulose 30 gm 10/07/18 14:00 10/08/18 09:28 Chronulac GT 11/06/18 08:59 30 gm Q2H HUGH Administration Magnesium Oxide 400 mg 10/05/18 09:00 10/08/18 07:56 Mag-Ox PO 11/04/18 08:59 400 mg DAILY HUGH Administration Prednisone 40 mg 10/07/18 09:00 10/08/18 07:57 Prelone PO 11/06/18 08:59 40 mg DAILY HUGH Administration Propranolol HCl 10 mg 10/05/18 21:00 10/08/18 07:59 Inderal PO 11/04/18 20:59 10 mg TID HUGH Administration Ranitidine HCl 150 mg 10/05/18 21:00 10/06/18 21:30 Zantac PO 11/04/18 20:59 150 mg HS HUGH Administration Rifaximin 400 mg 10/08/18 09:00 10/08/18 07:58 Xifaxan PO 10/18/18 08:59 400 mg TID HUGH Administration Topiramate 100 mg 10/05/18 09:00 10/08/18 07:58 Topamax PO 11/04/18 08:59 100 mg BID HUGH Administration
--- NOTE | 2018-10-08 12:32 | Family Medicine Progress Note ---
Date of Service October 08, 2018 Assessment & Plan (1) Elevated LFTs: 48 y/o female with chronic Hx of alcohol abuse presenting with seizures likely related to alcohol withdrawal. Acute encephalopathy -2/2 chronic alcoholism, renal failure and liver failure -phenobarb dc'd. Will cont MV's, thiamine, and benzodiazepines to prevent withdrawal -Lactulose and Rifaximin for hepatic encephalopathy. Cont trend ammonia Anemia -No s/s of GI bleeding, no vomiting of blood or blood per rectum. NG placed and no blood, so no UGI bleeding. Considering retroperitoneal bleed/Intra-abdominal. No hx of varices--> octreotide -Will cont PPI ranitidine and Protonix for PUD -Transfuse prn. Supportive care focused on hemodynamics -CT Abd: Moderate ascites with hematocrit effect within the pelvis consistent with hemoperitoneum. The amount of blood is difficult to quantify but likely moderate -Sx: pt is not a surgical candidate with her current hepatic function and coagulopathy especially in light of her ascites pro time and platelet count -[facility] [place] IR: due to lack of a localized blood vessel as well as her coagulopathy, IR approach not feasible either. If pt has rebleeding and if localization was able to be obtained with a CTA or bleeding scan, then possible IR approach given we are able to give enough FFP and platelets -In the interim, we will attempt to prevent rebleed with aggressive measures: additional FFP, low threshold to give a unit of platelets -Placed on ceftriaxone/flagyl for empiric coverage 2/2 abd bleeding. Also E Coli in urine coverage Acute liver failure/Cirrhosis -Rising INR and LFT initially suggested acute liver failure on top of known cirrhosis. Loss of synthetic capability and shock liver. Now, LFTs have actually plateaued -very poor prognosis, will cont supportive care. Not a liver transplant candidate given ETOH use -Cirrhosis- from ETOH. Prelim Hep C positive. Other serology pending. 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 Overall prognosis guarded -will avoid nephrotoxins -developing hepatorenal syndrome in the setting of acute hepatic failure and chronic alcoholic cirrhosis Elevated lactic acid -Could be septic vs ischemic bowel. As above, supportive care as she is not a surgical candidate Seizure -Likely due to acute alcohol withdrawal -continue Topamax FEN- NPO currently DVT Prophylaxis: low risk Full Code Dispo: ICU Supervising Physician Co-Signing Physician Notes I personally examined the patient and verified all cooper points of history and exam, discussed case, and agree with decision making with Dr Rossi. no meaningful HPI or ROS. nursing notes no new issues. (+) BMs vitals noted, in bed without meaningful response. breathing unlabored lungs clear, no visible signs of distress or pain. cardio reg no r/m/g. abd soft nd nt (+) BS, no guarding/rebound/rigidity. ext no c/c. no focal neuro deficits. cirrhosis, EtOH abuse/withdrawal, withdrawal seizures, acute blood loss anemia, concern on developing hemorrhagic shock, acute decompensated liver failure -supportive care focused on hemodynamics -Intra-abdominal bleeding noted, appears the bleeding has stopped. No option for surgical intervention. On 10/07 case discussed with interventional radiology at [place], due to lack of a localized blood vessel as well as her coagulopathy, interventional radiology approach would not be feasible. Should she have rebleeding, if localization was able to be obtained with a CT angiogram or bleeding scan (both of which were present their own problemsCT with renal failure, bleeding scan with the time it takes to get a positive result) and we were able to give enough FFP and platelets, then possibly an interventional radiology approach may be undertaken -Review of evidence suggests that further FFP or platelets unless she rebleeds would be of little benefit. Certainly if rebleed occurs would definitely want to transfuse FFP and/or platelets quickly along with blood. -continue hemodynamic support, transfuse as needed -LFTs have actually plateaued, prednisolone started for alcoholic hepatitis (wh ile she is on empiric antibiotics given the severity of her illness and the concern of anything intra-abdominal, she does not appear to have any major infection of significance), lactulose for hepatic encephalopathy -Empiric antibiotic coverage given massive amount of bleeding into the abdominal cavity (Rocephin and Flagyl) -otherwise as above Subjective 48 y/o F found in bed this AM. Pt still obtunded so further subjective hx difficult to obtain. Reports overnight of increased ammonia, so added 2nd med agent to help decrease. Still NPO. Discussed with family at bedside. No other acute concerns or complaints. Review of Systems Review of Systems: All systems reviewed & are unremarkable except as noted in HPI & below Physical Exam Constitutional: obtunded Eyes: scleral icteric ENMT: external ear and nose normal, oropharynx normal Respiratory: normal respiratory effort, lungs clear to auscultation Cardiovascular: RRR, no murmur, no edema Gastrointestinal (Abdomen): normal bowel sounds, soft, nontender, no hepatosplenomegaly Skin: no rashes, warm and dry Psychiatric: lethargic Results & Data Vital Signs (Past 12 Hours) Vital Signs Temp Pulse Resp BP Pulse Ox 10/08/18 12:00 36.4 C L 79 12 115/80 92 10/08/18 11:00 69 12 112/79 94 10/08/18 10:00 70 12 109/78 94 10/08/18 09:00 71 12 98/81 L 96 10/08/18 08:00 74 12 130/81 95 10/08/18 07:00 80 13 114/82 96 10/08/18 06:01 77 128/83 96 10/08/18 05:00 76 120/77 95 10/08/18 04:30 77 119/83 94 10/08/18 04:01 36.7 C 77 110/80 95 10/08/18 03:31 83 118/83 95 10/08/18 03:01 80 131/88 95 10/08/18 02:30 76 115/78 94 10/08/18 02:00 76 114/79 95 10/08/18 01:31 76 116/84 97 10/08/18 01:01 77 120/70 96 Laboratory Results Laboratory Results - last 24 hr 10/05/18 10/07/18 10/07/18 Unknown 19:43 23:41 WBC RBC Hgb Hct MCV MCH MCHC RDW Std Deviation RDW Coeff of Michelle Plt Count MPV Immature Gran % (Auto) Neut % (Auto) Lymph % (Auto) [place] % (Auto) Eos % (Auto) Baso % (Auto) Immature Gran # (Auto) Neut # (Auto) Lymph # (Auto) [place] # (Auto) Eos # (Auto) Baso # (Auto) Giant Platelets Target Cells PT INR Sodium Potassium Chloride Carbon Dioxide Anion Gap BUN Creatinine Est Cr Clr Drug Dosing Est GFR ( Amer) Est GFR (Non-Af Amer) BUN/Creatinine Ratio Glucose POC Glucose 134 H Calcium Ionized Calcium Phosphorus Magnesium Total Bilirubin Direct Bilirubin AST ALT Alkaline Phosphatase Ammonia 161.6 H Total Protein Albumin Globulin Albumin/Globulin Ratio U OH-Alprazolam Confrm NEGATIVE 7-Amino Clonazepam NEGATIVE Ur Nordiazepam Confirm 161 A U OH-ethylflurazepam NEGATIVE U Lorazepam Cnf GC/MS 655 A U Oxazepam Confm GC/MS 311 A Ur Temazepam Confirm 782 A U OH-Triazolam Confirm NEGATIVE U OH-Midazolam Confirm NEGATIVE 10/08/18 10/08/18 10/08/18 01:47 04:41 04:41 WBC RBC Hgb Hct MCV MCH MCHC RDW Std Deviation RDW Coeff of Michelle Plt Count MPV Immature Gran % (Auto) Neut % (Auto) Lymph % (Auto) [place] % (Auto) Eos % (Auto) Baso % (Auto) Immature Gran # (Auto) Neut # (Auto) Lymph # (Auto) [place] # (Auto) Eos # (Auto) Baso # (Auto) Giant Platelets Target Cells PT INR Sodium 135 L Potassium 4.1 Chloride 103 Carbon Dioxide 26 Anion Gap 6.0 BUN 17 Creatinine 2.03 H D Est Cr Clr Drug Dosing 41.5 Est GFR ( Amer) 32.3 Est GFR (Non-Af Amer) 27.9 BUN/Creatinine Ratio 8.3 L Glucose 128 H POC Glucose Calcium 6.8 L Ionized Calcium 0.87 L Phosphorus 2.9 Magnesium 2.7 H Total Bilirubin 9.5 H Direct Bilirubin 6.8 H AST 2691 H ALT 643 H Alkaline Phosphatase 171 H Ammonia 197.0 H Total Protein 6.1 L Albumin 2.3 L Globulin 3.8 Albumin/Globulin Ratio 0.6 L U OH-Alprazolam Confrm 7-Amino Clonazepam Ur Nordiazepam Confirm U OH-ethylflurazepam U Lorazepam Cnf GC/MS U Oxazepam Confm GC/MS Ur Temazepam Confirm U OH-Triazolam Confirm U OH-Midazolam Confirm 10/08/18 10/08/18 10/08/18 04:41 04:41 04:41 WBC 3.87 L RBC 2.68 L Hgb 8.5 L Hct 25.1 L MCV 93.7 MCH 31.7 MCHC 33.9 RDW Std Deviation 63.2 H RDW Coeff of Michelle 19.7 H Plt Count 30 L MPV 11.1 H Immature Gran % (Auto) 0.0 Neut % (Auto) 78.0 Lymph % (Auto) 11.1 [place] % (Auto) 10.6 Eos % (Auto) 0.3 Baso % (Auto) 0.0 Immature Gran # (Auto) 0.00 Neut # (Auto) 3.02 Lymph # (Auto) 0.43 L [place] # (Auto) 0.41 Eos # (Auto) 0.01 Baso # (Auto) 0.00 Giant Platelets 1+ Target Cells 1+ PT 39.2 H INR 4.2 H Sodium Potassium Chloride Carbon Dioxide Anion Gap BUN Creatinine Est Cr Clr Drug Dosing Est GFR ( Amer) Est GFR (Non-Af Amer) BUN/Creatinine Ratio Glucose POC Glucose Calcium Ionized Calcium Phosphorus Magnesium Total Bilirubin Direct Bilirubin AST ALT Alkaline Phosphatase Ammonia 165.0 H Total Protein Albumin Globulin Albumin/Globulin Ratio U OH-Alprazolam Confrm 7-Amino Clonazepam Ur Nordiazepam Confirm U OH-ethylflurazepam U Lorazepam Cnf GC/MS U Oxazepam Confm GC/MS Ur Temazepam Confirm U OH-Triazolam Confirm U OH-Midazolam Confirm 10/08/18 10/08/18 10/08/18 07:49 11:19 14:02 WBC RBC Hgb Hct MCV MCH MCHC RDW Std Deviation RDW Coeff of Michelle Plt Count MPV Immature Gran % (Auto) Neut % (Auto) Lymph % (Auto) [place] % (Auto) Eos % (Auto) Baso % (Auto) Immature Gran # (Auto) Neut # (Auto) Lymph # (Auto) [place] # (Auto) Eos # (Auto) Baso # (Auto) Giant Platelets Target Cells PT INR Sodium Potassium Chloride Carbon Dioxide Anion Gap BUN Creatinine Est Cr Clr Drug Dosing Est GFR ( Amer) Est GFR (Non-Af Amer) BUN/Creatinine Ratio Glucose POC Glucose 132 H Calcium Ionized Calcium Phosphorus Magnesium Total Bilirubin Direct Bilirubin AST ALT Alkaline Phosphatase Ammonia 103.2 H 119.3 H Total Protein Albumin Globulin Albumin/Globulin Ratio U OH-Alprazolam Confrm 7-Amino Clonazepam Ur Nordiazepam Confirm U OH-ethylflurazepam U Lorazepam Cnf GC/MS U Oxazepam Confm GC/MS Ur Temazepam Confirm U OH-Triazolam Confirm U OH-Midazolam Confirm Medications Administered Current Inpatient Medications Enteral Nutritional Formula (Peptamen 1.5) 1,000 ml NG Q24H HUGH; Protocol Stop: 11/07/18 15:29 Last Admin: 10/08/18 16:10 Dose: 1,000 ml Documented by: Heparin Sodium (Beef Lung) (Heparin Sod 10 Unit/Ml Flush) 5 ml FLUSH PRN PRN PRN Reason: Flush Stop: 11/06/18 00:19 Thiamine HCl 100 mg/ Syringe 10 mls @ 2 mls/hr IV DAILY HUGH Stop: 11/03/18 22:14 Last Admin: 10/08/18 07:56 Dose: 2 mls/hr Documented by: Ceftriaxone Sodium 2,000 mg/ (Dextrose) 70 mls @ 140 mls/hr IV Q24H HUGH; Protocol Stop: 10/15/18 00:00 Last Infusion: 10/08/18 01:08 Dose: Infused Documented by: Parenteral Electrolytes (Normosol-R) 1,000 mls @ 80 mls/hr IV .[id number] HUGH Stop: 11/04/18 19:59 Last Admin: 10/08/18 09:28 Dose: 80 mls/hr Documented by: Lorazepam (Ativan) 1 mg in 2 mls @ 2 mls/min IV ONE PRN; Protocol PRN Reason: EtoH Withdrawal AWSS 6-10 Stop: 11/05/18 08:54 Folic Acid 1 mg/ Syringe 10 mls @ 5 mls/min IV QAM HUGH Stop: 11/05/18 10:44 Last Admin: 10/08/18 07:56 Dose: 5 mls/min Documented by: Sodium Chloride (Nss) 250 mls @ 15 mls/hr IV .[id number] PRN PRN Reason: For Transfusion Stop: 11/05/18 14:19 Calcium Gluconate 1,000 mg/ (Sodium Chloride) 60 mls @ 240 mls/hr IV TID HUGH Stop: 10/09/18 10:59 Last Infusion: 10/08/18 14:03 Dose: Infused Documented by: Famotidine 20 mg/ Syringe 5 mls @ 2.5 mls/min IV QAM [facility] Stop: 11/08/18 08:59 Lactulose (Chronulac) 30 gm GT Q2H HUGH Stop: 11/06/18 08:59 Last Admin: 10/08/18 17:23 Dose: 30 gm Documented by: Magnesium Oxide (Mag-Ox) 400 mg PO DAILY HUGH Stop: 11/04/18 08:59 Last Admin: 10/08/18 07:56 Dose: 400 mg Documented by: Prednisone (Prelone) 40 mg PO DAILY [facility] Stop: 11/06/18 08:59 Last Admin: 10/08/18 07:57 Dose: 40 mg Documented by: Propranolol HCl (Inderal) 10 mg PO TID [facility] Stop: 11/04/18 20:59 Last Admin: 10/08/18 13:43 Dose: 10 mg Documented by: Ranitidine HCl (Zantac) 150 mg PO HS [facility] Stop: 11/04/18 20:59 Last Admin: 10/06/18 21:30 Dose: 150 mg Documented by: Rifaximin (Xifaxan) 400 mg PO TID [facility] Stop: 10/18/18 08:59 Last Admin: 10/08/18 13:42 Dose: 400 mg Documented by: Topiramate (Topamax) 100 mg PO BID [facility] Stop: 11/04/18 08:59 Last Admin: 10/08/18 07:58 Dose: 100 mg Documented by: Resident Activity Tracking Resident Involvement: Resident Care Provided Care Provided: Adult Hospital Medicine
--- NOTE | 2018-10-08 13:00 | Progress Note ---
DATE: 10/08/2018 SUBJECTIVE: The patient remains comatose and unresponsive to verbal and tactile stimulation. OBJECTIVE: VITAL SIGNS: Blood pressure is 112/79, pulse 69, temperature is 36.7, O2 saturations 94 on 2 liters nasal cannula. Urine is growing E. coli which makes treating her with steroids complicated for her alcohol-related disease. Her kidney function shows BUN 17, creatinine is 2.03. Ammonia is still elevated at 103, which is down from 197 earlier today. Exam shows her to be slightly jaundiced. She is breathing on her own, but unresponsive. There is no asterixis. Abdomen shows right upper quadrant scar and an umbilical scar. There is no tenderness elicited. Extremities showed some edema. She has some sequential compression devices on both legs. IMPRESSION: The patient has end-stage liver disease and acute renal insufficiency as well. At this point, we will continue with supportive measures if her E. coli infection improves and she is still in dire straits, we may add steroids at some point. We will continue to follow the patient.
[2018-10-08 14:36] LABS: 7-Aminoclonaz, Confirm NEGATIVE NG/ML (CUTOFF=25); Hydro-Alp Ur, GC/MS NEGATIVE NG/ML (CUTOFF=25); Hydroxyethylflurazepam, Conf NEGATIVE NG/ML (CUTOFF=50); Hydroxytriazolam NEGATIVE NG/ML (CUTOFF=50); Lorazepam, Ur GC/MS 655 NG/ML (CUTOFF=50); Nordiazepam, Confirm 161 NG/ML (CUTOFF=50); Oxazepam Ur, GC/MS 311 NG/ML (CUTOFF=50); Temazepam, Confirm 782 NG/ML (CUTOFF=50)
[2018-10-08] MEDS: PEPTAMEN 1.5 CAL 1,000 ML BAG NG SCH (16:10)
[2018-10-09] MEDS: LACTULOSE SYRUP 30 GM/45 ML UDP GT SCH ×12 (00:04→21:42)
[2018-10-09] MEDS: cefTRIAXone SODIUM 2,000 MG in DEXTROSE 5% 50 ML IV SCH (00:04)
[2018-10-09 04:44] LABS: Hematocrit (blood only) 26.6 % (37-47); Hemoglobin 9.3 g/dL (12.0-16.0); Mean Corpuscular Volume 93.3 fL (80-100); RDW Coefficient of Variation 19.7 % (11.5-14.5); Red Blood Count 2.85 M/uL (4.2-5.4); White Blood Count 6.79 K/uL (4.8-10.8)
[2018-10-09 05:06] LABS: Prothrombin Time 55.5 Seconds (9.0-12.0)
[2018-10-09 05:19] LABS: Albumin Globulin Ratio 0.5 (0.9-2); Albumin Level 2.1 gm/dl (3.4-5.0); BUN Creatinine Ratio 11.7 (10-20); Bilirubin Direct 7.4 mg/dl (0-0.2); Bilirubin,Total 10.7 mg/dl (0.2-1); Calcium 7.1 mg/dl (8.5-10.1); Creatinine Clr Calc Pharmacy 48.5 ml/min; Est GFR (African American) 39.2; Est GFR (Non-African American) 33.8; Globulin 3.9 gm/dl (2.5-4.0); Phosphorus 1.7 mg/dl (2.5-4.9); Potassium 3.6 mmol/L (3.5-5.1)
[2018-10-09 05:23] LABS: Mean Platelet Volume 11.2 fL (7.4-10.4); Platelet Count 40 K/uL (130-400)
[2018-10-09 05:40] LABS: Echinocytes 1+; Giant Platelets 1+; Immature Granulocytes # (auto) 0.02 K/uL (0.00-0.02); Immature Granulocytes % (auto) 0.3 %; Lymphocytes # (auto) 0.78 K/uL (1.2-3.4); Lymphocytes % (auto) 11.5 %; Monocytes # (auto) 0.91 K/uL (0.11-0.59); Monocytes % (auto) 13.4 %; Neutrophils # (auto) 5.08 K/uL (1.4-6.5); Neutrophils % (auto) 74.8 %; Polychromasia 1+
[2018-10-09 06:12] LABS: INR 6.2 (0.9-1.1)
[2018-10-09] MEDS ORDERED: PHYTONADIONE 5 MG in SODIUM CHLORIDE 0.9% 50 ML IV ONE (07:45)
[2018-10-09] MEDS: PROPRANOLOL HCL 10 MG TAB PO SCH ×3 (08:48→20:37)
[2018-10-09] MEDS: RIFAXIMIN 200 MG TABLET PO SCH ×3 (08:48→20:38)
[2018-10-09] MEDS: prednisoLONE SYRUP 15 MG/5 ML BTL PO SCH (08:48)
[2018-10-09] MEDS: CALCIUM GLUCONATE 10% 1,000 MG in SODIUM CHLORIDE 0.9% 50 ML IV SCH (08:57)
[2018-10-09] MEDS: THIAMINE HCL 100 MG in SYRINGE 9 ML IV SCH (08:57)
[2018-10-09] MEDS: FOLIC ACID 1 MG in SYRINGE 9.8 ML IV SCH (08:57)
[2018-10-09] MEDS: FAMOTIDINE 20 MG in SYRINGE 3 ML IV SCH (08:58)
[2018-10-09] MEDS ORDERED: POTASSIUM PHOSPHATE 30 MMOL in SODIUM CHLORIDE 0.9% 500 ML IV ONE (09:00)
--- NOTE | 2018-10-09 09:38 | Nephrology Progress Note ---
Date of Service October 09, 2018 Assessment & Plan (1) Acute kidney injury: 48-year-old female with acute kidney injury, hyperkalemia and metabolic acidosis in the setting of alcohol withdrawal seizure, cirrhosis, coagulopathy and elevated LFTs. Since admission her blood pressure has been persistently low. No urinalysis available from this admission however prior urinalysis showed trace proteinuria and microscopic hematuria. Rapid rise in creatinine could be secondary to dense ATN with persistent hypotension versus hepatorenal syndrome. Continues to be encephalopathy, CT brain was negative. CT abdomen pelvis showed hemoperitoneum. Renal function continues to improve with improvement in blood pressure however remained coagulopathic, with end-stage liver disease, elevated ammonia. Remained comatose and unresponsive for last 2 days. --continue supportive care, consider Bumex 2 mg IV prn however, no need for now as UO started to improve, prognosis guarded. Will sign off (2) Hyperkalemia: (3) Seizure: (4) Liver cirrhosis, alcoholic: (5) Elevated LFTs: Cesar Hernandez was seen and examined with her family at bedside. Remain , vitals and responsive. Blood pressure has been stable, off of pressors. Urine output has been decent, renal function has improved further, electrolyte acceptable. Ammonia continues to rise, INR remained elevated Physical Exam Constitutional: + ill appearing Unresponsive, comatose Respiratory: normal respiratory effort Auscultation: + diminished lung sounds Cardiovascular: Rate/Rhythm: regular rate and regular rhythm Heart Sounds: normal S1 and normal S2 Extremities: no pedal edema (Choose) Gastrointestinal (Abdomen): Inspection/Auscultation: + abdomen distended Neurologic: + obtunded Results & Data Vital Signs (Past 12 Hours) Vital Signs Temp Pulse Pulse Resp BP BP Pulse Ox 10/09/18 09:00 67 107/80 95 10/09/18 08:00 36 C L 72 118/85 98 10/09/18 07:00 69 100/79 98 10/09/18 06:00 75 13 130/84 97 10/09/18 05:00 71 13 114/94 98 10/09/18 04:00 36.5 C 71 13 138/99 97 10/09/18 03:00 68 14 111/83 97 10/09/18 02:00 72 14 123/87 98 10/09/18 01:00 72 12 110/89 97 10/09/18 00:00 36.4 C L 74 75 13 108/87 98 10/08/18 23:00 73 14 131/93 98 10/08/18 22:00 76 12 128/89 98
[2018-10-09] MEDS: NORMOSOL-R 1,000 ML IV SCH ×2 (10:25→21:42)
--- NOTE | 2018-10-09 10:39 | Critical Care Progress Note ---
Date of Service October 09, 2018 Assessment & Plan (1) Admitted to intensive care unit: (2) Acute encephalopathy: Severe hepatic encephalopathy in the setting of end-stage liver disease due to alcoholic cirrhosis -We will continue lactulose and vitamin K (3) Acute alcohol intoxication in patient with alcoholism with blood alcohol level over 0.3: (4) Hyperammonemia: Monitor electrolytes and replete as needed (5) Hepatic insufficiency: Alcoholic cirrhosis, end-stage liver disease acutely decompensated, with meld score of 38 GI consulted and following Continue lactulose. Family requests DNR and we have consulted hospice/palliative care (6) Blood loss anemia: CT abdomen pelvis with evidence of hemoperitoneum, hemoglobin now stable, no surgical option At this point patient hemoglobin appears to be stable Will continue to monitor hemoglobin and transfuse as necessary (7) DVT prophylaxis: No chemical prophylaxis SCDs (8) Pancytopenia: Due to hepatic cirrhosis with portal hypertension and hypersplenism. Subjective Patient remains unresponsive. Urine output is slightly better than on admission now about 30 cc an hour. She has been hemodynamically stable without sig nificant respiratory issues overnight. Her INR has continued to rise and family practice has ordered additional vitamin K also repleting potassium and phosphorus. Family meeting was held today with the patient's significant other as well as her mother, stepfather, myself Dr. Hayden, and Dr. Rossi. The family was informed that she has end-stage liver disease and that her short-term prognosis is very poor. They have requested DNR/DNI in the event of cardiac or respiratory arrest and would like to speak with hospice to explore options. Appropriate DNR/DNI orders are therefore entered and palliative care has been consulted. Review of Systems Review of Systems: Unable to obtain secondary to metabolic encephalopathy and inability of patient to communicate. Physical Exam Constitutional: + ill appearing, + altered mental status and + edematous Eyes: + scleral abnormality Pupils round reactive symmetrical sclera anicteric ENMT: Dry mucous membranes Neck: Supple no JVD adenopathy or bruits Respiratory: Scattered bilateral rhonchi, no wheezing, no accessory muscle use Cardiovascular: Regular rate and rhythm no murmurs, 3+ diffuse edema Gastrointestinal (Abdomen): Soft no apparent tenderness, no peritoneal signs Musculoskeletal: No deformity, 3+ edema, no cyanosis no clubbing Skin: Icteric Neurologic: Some withdrawal to pain, otherwise unresponsive Results & Data Vital Signs (Past 12 Hours) Vital Signs Temp Pulse Pulse Resp BP BP Pulse Ox 10/09/18 09:00 67 107/80 95 10/09/18 08:00 36 C L 72 118/85 98 10/09/18 07:00 69 100/79 98 10/09/18 06:00 75 13 130/84 97 10/09/18 05:00 71 13 114/94 98 10/09/18 04:00 36.5 C 71 13 138/99 97 10/09/18 03:00 68 14 111/83 97 10/09/18 02:00 72 14 123/87 98 10/09/18 01:00 72 12 110/89 97 10/09/18 00:00 36.4 C L 74 75 13 108/87 98 10/08/18 23:00 73 14 131/93 98 Laboratory Results 10/09/18 10/09/18 10/09/18 Range/Units 04:33 04:33 04:33 WBC 6.79 (4.8-10.8) K/uL RBC 2.85 L (4.2-5.4) M/uL Hgb 9.3 L (12.0-16.0) g/dL Hct 26.6 L (37-47) % MCV 93.3 (80-100) fL MCH 32.6 (25-34) pg MCHC 35.0 (32-36) g/dL RDW Std Deviation 64.0 H (36.4-46.3) fL RDW Coeff of Michelle 19.7 H (11.5-14.5) % Plt Count 40 L (130-400) K/uL MPV 11.2 H (7.4-10.4) fL Immature Gran % (Auto) 0.3 % Neut % (Auto) 74.8 % Lymph % (Auto) 11.5 % Hardee % (Auto) 13.4 % Eos % (Auto) 0.0 % Baso % (Auto) 0.0 % Immature Gran # (Auto) 0.02 (0.00-0.02) K/uL Neut # (Auto) 5.08 (1.4-6.5) K/uL Lymph # (Auto) 0.78 L (1.2-3.4) K/uL Hardee # (Auto) 0.91 H (0.11-0.59) K/uL Eos # (Auto) 0.00 (0-0.5) K/uL Baso # (Auto) 0.00 (0-0.2) K/uL Giant Platelets 1+ Polychromasia 1+ Echinocytes 1+ PT 55.5 H (9.0-12.0) Seconds INR 6.2 H* (0.9-1.1) Sodium (136-145) mmol/L Potassium (3.5-5.1) mmol/L Chloride (98-107) mmol/L Carbon Dioxide (21-32) mmol/L Anion Gap (3-11) BUN (7-18) mg/dl Creatinine (0.6-1.2) mg/dl Est Cr Clr Drug Dosing ml/min Est GFR ( Amer) Est GFR (Non-Af Amer) BUN/Creatinine Ratio (10-20) Glucose (70-99) mg/dl POC Glucose (70-99) Calcium (8.5-10.1) mg/dl Ionized Calcium (1.12-1.32) mmol/L Phosphorus (2.5-4.9) mg/dl Magnesium (1.8-2.4) mg/dl Total Bilirubin (0.2-1) mg/dl Direct Bilirubin (0-0.2) mg/dl AST (15-37) U/L ALT (12-78) U/L Alkaline Phosphatase (45-117) U/L Ammonia 182.0 H (11-32) umol/L Total Protein (6.4-8.2) gm/dl Albumin (3.4-5.0) gm/dl Globulin (2.5-4.0) gm/dl Albumin/Globulin Ratio (0.9-2) U OH-Alprazolam Confrm (CUTOFF=25) NG/ML 7-Amino Clonazepam (CUTOFF=25) NG/ML Ur Nordiazepam Confirm (CUTOFF=50) NG/ML U OH-ethylflurazepam (CUTOFF=50) NG/ML U Lorazepam Cnf GC/MS (CUTOFF=50) NG/ML U Oxazepam Confm GC/MS (CUTOFF=50) NG/ML Ur Temazepam Confirm (CUTOFF=50) NG/ML U OH-Triazolam Confirm (CUTOFF=50) NG/ML U OH-Midazolam Confirm (CUTOFF=50) NG/ML Hepatitis A IgM Ab (NON-REACTIVE) Hep B Core IgM Ab (NON-REACTIVE) HCV RNA Qual (TMA) 10/09/18 10/09/18 10/08/18 Range/Units 04:33 04:33 19:49 WBC (4.8-10.8) K/uL RBC (4.2-5.4) M/uL Hgb (12.0-16.0) g/dL Hct (37-47) % MCV (80-100) fL MCH (25-34) pg MCHC (32-36) g/dL RDW Std Deviation (36.4-46.3) fL RDW Coeff of Michelle (11.5-14.5) % Plt Count (130-400) K/uL MPV (7.4-10.4) fL Immature Gran % (Auto) % Neut % (Auto) % Lymph % (Auto) % Hardee % (Auto) % Eos % (Auto) % Baso % (Auto) % Immature Gran # (Auto) (0.00-0.02) K/uL Neut # (Auto) (1.4-6.5) K/uL Lymph # (Auto) (1.2-3.4) K/uL Hardee # (Auto) (0.11-0.59) K/uL Eos # (Auto) (0-0.5) K/uL Baso # (Auto) (0-0.2) K/uL Giant Platelets Polychromasia Echinocytes PT (9.0-12.0) Seconds INR (0.9-1.1) Sodium 140 (136-145) mmol/L Potassium 3.6 (3.5-5.1) mmol/L Chloride 108 H (98-107) mmol/L Carbon Dioxide 29 (21-32) mmol/L Anion Gap 3.0 (3-11) BUN 20 H (7-18) mg/dl Creatinine 1.73 H D (0.6-1.2) mg/dl Est Cr Clr Drug Dosing 48.5 ml/min Est GFR ( Amer) 39.2 Est GFR (Non-Af Amer) 33.8 BUN/Creatinine Ratio 11.7 (10-20) Glucose 134 H (70-99) mg/dl POC Glucose (70-99) Calcium 7.1 L (8.5-10.1) mg/dl Ionized Calcium 0.99 L (1.12-1.32) mmol/L Phosphorus 1.7 L D (2.5-4.9) mg/dl Magnesium 3.0 H (1.8-2.4) mg/dl Total Bilirubin 10.7 H (0.2-1) mg/dl Direct Bilirubin 7.4 H (0-0.2) mg/dl AST 1279 H (15-37) U/L ALT 486 H (12-78) U/L Alkaline Phosphatase 180 H (45-117) U/L Ammonia 182.7 H (11-32) umol/L Total Protein 6.0 L (6.4-8.2) gm/dl Albumin 2.1 L (3.4-5.0) gm/dl Globulin 3.9 (2.5-4.0) gm/dl Albumin/Globulin Ratio 0.5 L (0.9-2) U OH-Alprazolam Confrm (CUTOFF=25) NG/ML 7-Amino Clonazepam (CUTOFF=25) NG/ML Ur Nordiazepam Confirm (CUTOFF=50) NG/ML U OH-ethylflurazepam (CUTOFF=50) NG/ML U Lorazepam Cnf GC/MS (CUTOFF=50) NG/ML U Oxazepam Confm GC/MS (CUTOFF=50) NG/ML Ur Temazepam Confirm (CUTOFF=50) NG/ML U OH-Triazolam Confirm (CUTOFF=50) NG/ML U OH-Midazolam Confirm (CUTOFF=50) NG/ML Hepatitis A IgM Ab (NON-REACTIVE) Hep B Core IgM Ab (NON-REACTIVE) HCV RNA Qual (TMA) 10/08/18 10/08/18 10/06/18 Range/Units 14:02 11:19 06:50 WBC (4.8-10.8) K/uL RBC (4.2-5.4) M/uL Hgb (12.0-16.0) g/dL Hct (37-47) % MCV (80-100) fL MCH (25-34) pg MCHC (32-36) g/dL RDW Std Deviation (36.4-46.3) fL RDW Coeff of Michelle (11.5-14.5) % Plt Count (130-400) K/uL MPV (7.4-10.4) fL Immature Gran % (Auto) % Neut % (Auto) % Lymph % (Auto) % Hardee % (Auto) % Eos % (Auto) % Baso % (Auto) % Immature Gran # (Auto) (0.00-0.02) K/uL Neut # (Auto) (1.4-6.5) K/uL Lymph # (Auto) (1.2-3.4) K/uL Hardee # (Auto) (0.11-0.59) K/uL Eos # (Auto) (0-0.5) K/uL Baso # (Auto) (0-0.2) K/uL Giant Platelets Polychromasia Echinocytes PT (9.0-12.0) Seconds INR (0.9-1.1) Sodium (136-145) mmol/L Potassium (3.5-5.1) mmol/L Chloride (98-107) mmol/L Carbon Dioxide (21-32) mmol/L Anion Gap (3-11) BUN (7-18) mg/dl Creatinine (0.6-1.2) mg/dl Est Cr Clr Drug Dosing ml/min Est GFR ( Amer) Est GFR (Non-Af Amer) BUN/Creatinine Ratio (10-20) Glucose (70-99) mg/dl POC Glucose 132 H (70-99) Calcium (8.5-10.1) mg/dl Ionized Calcium (1.12-1.32) mmol/L Phosphorus (2.5-4.9) mg/dl Magnesium (1.8-2.4) mg/dl Total Bilirubin (0.2-1) mg/dl Direct Bilirubin (0-0.2) mg/dl AST (15-37) U/L ALT (12-78) U/L Alkaline Phosphatase (45-117) U/L Ammonia 119.3 H (11-32) umol/L Total Protein (6.4-8.2) gm/dl Albumin (3.4-5.0) gm/dl Globulin (2.5-4.0) gm/dl Albumin/Globulin Ratio (0.9-2) U OH-Alprazolam Confrm (CUTOFF=25) NG/ML 7-Amino Clonazepam (CUTOFF=25) NG/ML Ur Nordiazepam Confirm (CUTOFF=50) NG/ML U OH-ethylflurazepam (CUTOFF=50) NG/ML U Lorazepam Cnf GC/MS (CUTOFF=50) NG/ML U Oxazepam Confm GC/MS (CUTOFF=50) NG/ML Ur Temazepam Confirm (CUTOFF=50) NG/ML U OH-Triazolam Confirm (CUTOFF=50) NG/ML U OH-Midazolam Confirm (CUTOFF=50) NG/ML Hepatitis A IgM Ab NON-REACTIVE (NON-REACTIVE) Hep B Core IgM Ab NON-REACTIVE (NON-REACTIVE) HCV RNA Qual (TMA) DETECTED A 10/05/18 Range/Units Unknown WBC (4.8-10.8) K/uL RBC (4.2-5.4) M/uL Hgb (12.0-16.0) g/dL Hct (37-47) % MCV (80-100) fL MCH (25-34) pg MCHC (32-36) g/dL RDW Std Deviation (36.4-46.3) fL RDW Coeff of Michelle (11.5-14.5) % Plt Count (130-400) K/uL MPV (7.4-10.4) fL Immature Gran % (Auto) % Neut % (Auto) % Lymph % (Auto) % Hardee % (Auto) % Eos % (Auto) % Baso % (Auto) % Immature Gran # (Auto) (0.00-0.02) K/uL Neut # (Auto) (1.4-6.5) K/uL Lymph # (Auto) (1.2-3.4) K/uL Hardee # (Auto) (0.11-0.59) K/uL Eos # (Auto) (0-0.5) K/uL Baso # (Auto) (0-0.2) K/uL Giant Platelets Polychromasia Echinocytes PT (9.0-12.0) Seconds INR (0.9-1.1) Sodium (136-145) mmol/L Potassium (3.5-5.1) mmol/L Chloride (98-107) mmol/L Carbon Dioxide (21-32) mmol/L Anion Gap (3-11) BUN (7-18) mg/dl Creatinine (0.6-1.2) mg/dl Est Cr Clr Drug Dosing ml/min Est GFR ( Amer) Est GFR (Non-Af Amer) BUN/Creatinine Ratio (10-20) Glucose (70-99) mg/dl POC Glucose (70-99) Calcium (8.5-10.1) mg/dl Ionized Calcium (1.12-1.32) mmol/L Phosphorus (2.5-4.9) mg/dl Magnesium (1.8-2.4) mg/dl Total Bilirubin (0.2-1) mg/dl Direct Bilirubin (0-0.2) mg/dl AST (15-37) U/L ALT (12-78) U/L Alkaline Phosphatase (45-117) U/L Ammonia (11-32) umol/L Total Protein (6.4-8.2) gm/dl Albumin (3.4-5.0) gm/dl Globulin (2.5-4.0) gm/dl Albumin/Globulin Ratio (0.9-2) U OH-Alprazolam Confrm NEGATIVE (CUTOFF=25) NG/ML 7-Amino Clonazepam NEGATIVE (CUTOFF=25) NG/ML Ur Nordiazepam Confirm 161 A (CUTOFF=50) NG/ML U OH-ethylflurazepam NEGATIVE (CUTOFF=50) NG/ML U Lorazepam Cnf GC/MS 655 A (CUTOFF=50) NG/ML U Oxazepam Confm GC/MS 311 A (CUTOFF=50) NG/ML Ur Temazepam Confirm 782 A (CUTOFF=50) NG/ML U OH-Triazolam Confirm NEGATIVE (CUTOFF=50) NG/ML U OH-Midazolam Confirm NEGATIVE (CUTOFF=50) NG/ML Hepatitis A IgM Ab (NON-REACTIVE) Hep B Core IgM Ab (NON-REACTIVE) HCV RNA Qual (TMA) Diagnostic Findings Home Medications Medication Instructions Recorded Confirmed Last Taken pantoprazole [Protonix] 40 mg PO DAILY 28 Days #28 tab 09/16/18 10/04/18 Unknown Potassium Tab 1 tab PO DAILY 10/04/18 10/04/18 Unknown folic acid 1 mg PO DAILY 10/04/18 10/04/18 Unknown magnesium oxide 400 mg PO DAILY 10/04/18 10/04/18 Unknown penicillin V potassium 500 mg PO QID 10/04/18 10/04/1810/04/19 ranitidine HCl 150 mg PO HS 10/04/18 10/04/18 Unknown topiramate [Topamax] 100 mg PO BID 10/04/18 10/04/18 Unknown Active Medications Generic Name Dose Route Start Last Admin Trade Name Reji PRN Reason Stop Dose Admin Enteral Nutritional Formula 1,000 ml 10/08/18 15:30 10/08/18 16:10 Peptamen 1.5 NG 11/07/18 15:29 1,000 ml Q24H HUGH Administration Protocol Thiamine HCl 100 mg/ Syringe 10 mls @ 2 mls/hr 10/04/18 22:15 10/09/18 08:57 IV 11/03/18 22:14 2 mls/hr DAILY HUGH Administration Ceftriaxone Sodium 2,000 mg/ 70 mls @ 140 mls/hr 10/05/18 00:00 10/09/18 00:34 Dextrose IV 10/15/18 00:00 Infused Q24H HUGH Infusion Protocol Parenteral Electrolytes 1,000 mls @ 80 mls/hr 10/05/18 20:00 10/09/18 10:25 Normosol-R IV 11/04/18 19:59 80 mls/hr .[id number] HUGH Administration Folic Acid 1 mg/ Syringe 10 mls @ 5 mls/min 10/06/18 10:45 10/09/18 08:57 IV 11/05/18 10:44 5 mls/min QAM HUGH Administration Calcium Gluconate 1,000 mg/ 60 mls @ 240 mls/hr 10/08/18 09:00 10/09/18 09:15 Sodium Chloride IV 10/09/18 10:59 Infused TID HUGH Infusion Famotidine 20 mg/ Syringe 5 mls @ 2.5 mls/min 10/09/18 09:00 10/09/18 08:58 IV 11/08/18 08:59 2.5 mls/min QAM HUGH Administration Potassium Phosphate 30 mmol/ 510 mls @ 88 mls/hr 10/09/18 09:00 10/09/18 09:02 Sodium Chloride IV 10/09/18 14:47 88 mls/hr ONE ONE Administration Lactulose 30 gm 10/07/18 14:00 10/09/18 08:47 Chronulac GT 11/06/18 08:59 30 gm Q2H HUGH Administration Prednisone 40 mg 10/07/18 09:00 10/09/18 08:48 Prelone PO 11/06/18 08:59 40 mg DAILY HUGH Administration Propranolol HCl 10 mg 10/05/18 21:00 10/09/18 08:48 Inderal PO 11/04/18 20:59 10 mg TID HUGH Administration Ranitidine HCl 150 mg 10/05/18 21:00 10/06/18 21:30 Zantac PO 11/04/18 20:59 150 mg HS HUGH Administration Rifaximin 400 mg 10/08/18 09:00 10/09/18 08:48 Xifaxan PO 10/18/18 08:59 400 mg TID HUGH Administration Topiramate 100 mg 10/05/18 09:00 10/08/18 07:58 Topamax PO 11/04/18 08:59 100 mg BID HUGH Administration
--- NOTE | 2018-10-09 12:39 | Palliative Care Consultation ---
Date of Consultation October 09, 2018 Assessment & Plan (1) Palliative care encounter: This is a 48 year old unfortunate female who has a long standing history of end-stage liver failure with alcohol cirrhosis with 10 hospital admissions since November 2017 for hepatic encephalopathy, pancreatitis and seizures. The patient also has an underlying PMH of mental health issues that includes bipolar disorder and schizophrenia. The patient has been unresponsive over the past 24 hours and has a MELD score now of 41 based on her recent lab values. On this admission a CT scan did show hemoperitoneum and her CAMILA > 0.3. She has been receiving conservative treatment with Lactulose Q2 hours, and Vitamin K, along with tube feedings and electrolyte replacement. The patients INR is 6.2, creatinine 1.73, TBili 10.7 and Ammonia 182. The patient's family including her mother, step father, and boyfriend met with the Product Assurance Engineer and Hospitalist team to discuss goals of care where her code status was changed to a DNR. Palliative Care was consulted to discuss Hospice options and continue goals transition. -I met with patient who was unresponsive, patient mother Lia, and step- father. -Lengthy conversation held regarding current medical condition, lengthy challenge with her current illness and explaining transitioning to comfort care, what that would look like and setting expectations, all while offering support and stressing that we can transition slowly and when all family members are read y to do so. -Patient boyfriend, Lenin, would like to part of all conversations as well; however, he is at work and unable to come to the hospital until tomorrow, which I stressed I would come and talk to them again when he arrived. -The family stressed that they feel they would like to stop tube feedings, and IV fluids tomorrow; however, will wait for Lenin to finalize plans. -I did express that the patient is not on life-support per say at this time, and I do not anticipate that when we discontinue fluids, electrolyte replacement, tube feedings, and lactulose that she will pass away immediately as she is young and otherwise hemodynamically stable. -The patients one son, Clifton, is incarcerated and did phone to speak to his mother when we were leaving the room. I did state that if they wished, they could contact [facility] to discuss pravin for end-of life visitation --> they will look into this. -The patient mother also stated that the patient has a pet cat that she loved so much - I did express that with a Rabies vaccination certificate, we could allow visitation, even if the patient can not wake up enough to see the cat, the family surely could hold her hand up to pet the animal. The family was very interested in this. -We talked about Hospice and at this time, I do not feel she is GIP appropriate due to the fact that we can manage her symptoms at this time. Once the transition is made, whenever that is, we can evaluate how she does and then discuss stability of out of hospital transfer, of course, if this is necessary. -We did discuss tube feedings and the patients decreasing need for caloric intake, etc., once transitioning to more comfort. -We will continue to provide support to this family as they enter the decision making process for their family member. We will stop down to the patients room in the morning for further discussion. -PPS: 10% (2) Acute alcohol intoxication in patient with alcoholism with blood alcohol level over 0.3: (3) Thrombocytopenia: (4) Schizoaffective disorder: (5) Elevated LFTs: History of Present Illness Reason for Consultation: Goals of care Requesting Physician: Dr. Hayden Attending Physician: Alex Hayden, DO History of Present Illness This is a 48 year old unfortunate female who has a long standing history of end- stage liver failure with alcohol cirrhosis with 10 hospital admissions since November 2017 for hepatic encephalopathy, pancreatitis and seizures. The patient also has an underlying PMH of mental health issues that includes bipolar disorder and schizophrenia. The patient has been unresponsive over the past 24 hours and has a MELD score now of 41 based on her recent lab values. On this admission a CT scan did show hemoperitoneum and her CAMILA > 0.3. She has been receiving conservative treatment with Lactulose Q2 hours, and Vitamin K, along with tube feedings and electrolyte replacement. The patients INR is 6.2, creatinine 1.73, TBili 10.7 and Ammonia 182. The patient's family including her mother, step father, and boyfriend met with the Product Assurance Engineer and Hospitalist team to discuss goals of care where her code status was changed to a DNR. Palliative Care was consulted to discuss Hospice options and continue goals transition. Please see the A/P for further details. Thank you kindly for involving Palliative Care with this unfortunate patient. Allergies Allergy/AdvReac Type Severity Reaction Status Date / Time acetaminophen [From Tylenol] AdvReac Intermediate HX Verified 10/04/18 19:22 CIRRHOSIS NSAIDS (Non-Steroidal AdvReac Intermediate HX Verified 10/04/18 19:22 Anti-Inflamma CIRRHOSIS phenytoin AdvReac Intermediate LOSS OF Verified 10/04/18 19:22 EQUILIBRIUM Home Medications Home Medications Medication Instructions Recorded Confirmed Type pantoprazole [Protonix] 40 mg PO DAILY 28 Days #28 tab 09/16/18 10/04/18 Rx Potassium Tab 1 tab PO DAILY 10/04/18 10/04/18 History folic acid 1 mg PO DAILY 10/04/18 10/04/18 History magnesium oxide 400 mg PO DAILY 10/04/18 10/04/18 History penicillin V potassium 500 mg PO QID 10/04/18 10/04/18 History ranitidine HCl 150 mg PO HS 10/04/18 10/04/18 History topiramate [Topamax] 100 mg PO BID 10/04/18 10/04/18 History Patient History Medical History Hypertension (Acute) Hypokalemia Seizures Pancreatitis (Chronic) Schizoaffective disorder (Chronic) Arthritis Depression Liver disease Thyroid disease Gastritis Liver cancer (Chronic) Alcoholism Acute recurrent pancreatitis (Acute Unknown) Viral hepatitis C (Chronic Unknown) Chronic pancreatitis (Chronic Unknown) Cirrhosis, alcoholic (Chronic) Chronic renal failure, stage 3 (moderate) (Chronic) Polysubstance abuse (Acute) Depression with suicidal ideation (Acute) TIA (transient ischemic attack) (Acute) Pancytopenia (Acute) Cholecystectomy planned Cholecystectomy planned Hyponatremia Surgical History History of appendectomy Family History Mother Multiple sclerosis Father , age 52 Acute coronary occlusion without mycocardial infarction Social History Preferred Language: Divehi Communication Ability: Impaired Visual Impairment: No Limitations Section Supervisor Required: No Beliefs That Will Affect Care: None marital status: Current Living Situation: Significant Other current occupational status: unemployed and disabled Other Information That Helps Us Care for You: No Feels Safe at Home: Yes Safety Concerns: Feels Safe At This Time Smoking Status: Current every day smoker Tobacco Type: cigarettes Cigarettes Per Day: 20 Do You Dip or Chew Tobacco: No Second Hand Exposure: No Tobacco Cessation Education Requested by Patient: No Hx Alcohol Use: Yes Alcohol type: beer Hx Substance Use: Yes (beer and cigarettes) substance use type: does not use Last Used Substance: Just Prior to Arrival Review of Systems Review of Systems: Unobtainable due to reduced consciousness Results & Data Vital Signs (Past 12 Hours) Vital Signs Temp Pulse Pulse Resp BP BP Pulse Ox 10/09/18 12:15 71 93 10/09/18 12:00 36 C L 69 107/80 90 10/09/18 11:00 71 117/80 98 10/09/18 10:21 75 105/74 98 10/09/18 10:00 66 105/74 95 10/09/18 09:00 67 107/80 95 10/09/18 08:00 36 C L 72 118/85 98 10/09/18 07:00 69 100/79 98 10/09/18 06:00 75 13 130/84 97 10/09/18 05:00 71 13 114/94 98 10/09/18 04:00 36.5 C 71 13 138/99 97 10/09/18 03:00 68 14 111/83 97 10/09/18 02:00 72 14 123/87 98 10/09/18 01:00 72 12 110/89 97 Time Spent Midlevel Total time spent 70 minutes with > 50% of that time spent assessing the patient, discussing goals of care with the patients family and IDT.
--- NOTE | 2018-10-09 15:47 | Family Medicine Progress Note ---
Date of Service October 09, 2018 Assessment & Plan (1) Elevated LFTs: 48 y/o female with chronic Hx of alcohol abuse presenting with seizures likely related to alcohol withdrawal. Acute encephalopathy -2/2 chronic alcoholism, renal failure and liver failure -phenobarb dc'd. Will cont MV's, thiamine, and benzodiazepines to prevent withdrawal -Lactulose and Rifaximin for hepatic encephalopathy. Cont trend ammonia -family discussing moving to supportive care Anemia -No s/s of GI bleeding, no vomiting of blood or blood per rectum. NG placed and no blood, so no UGI bleeding. Considering retroperitoneal bleed/Intra-abdominal. No hx of varices--> octreotide -Will cont PPI ranitidine and Protonix for PUD -Transfuse prn. Supportive care focused on hemodynamics -CT Abd: Moderate ascites with hematocrit effect within the pelvis consistent with hemoperitoneum. The amount of blood is difficult to quantify but likely moderate -Sx: pt is not a surgical candidate with her current hepatic function and coagulopathy especially in light of her ascites pro time and platelet count -[facility]: due to lack of a localized blood vessel as well as her coagulopathy, IR approach not feasible either. If pt has rebleeding and if localization was able to be obtained with a CTA or bleeding scan, then possible IR approach given we are able to give enough FFP and platelets -In the interim, we will attempt to prevent rebleed with aggressive measures: additional FFP, low threshold to give a unit of platelets -Placed on ceftriaxone/flagyl for empiric coverage 2/2 abd bleeding. Also E Coli in urine coverage -as above, family considering options and moving to supportive care Acute liver failure/Cirrhosis -Rising INR and LFT initially suggested acute liver failure on top of known cirrhosis. Loss of synthetic capability and shock liver. Now, LFTs have actually plateaued -very poor prognosis, will cont supportive care. Not a liver transplant candidate given ETOH use -Cirrhosis- from ETOH. Prelim Hep C positive. Other serology pending. -Pt with ascites and cirrhosis noted on abd US this visit -Prednisolone 40 mg for alcoholic hepatitis -as above, family considering options and moving to supportive care ARF -Nephro: if no improvement, would not recommend dialysis , considering ESLD. Overall prognosis guarded -will avoid nephrotoxins -developing hepatorenal syndrome in the setting of acute hepatic failure and chronic alcoholic cirrhosis -as above, family considering options and moving to supportive care Elevated lactic acid -Could be septic vs ischemic bowel. As above, supportive care as she is not a surgical candidate Seizure -Likely due to acute alcohol withdrawal -continue Topamax FEN- NPO currently DVT Prophylaxis: low risk Full Code Dispo: ICU. Family considering options and moving to supportive care Supervising Physician Co-Signing Physician Notes I personally examined the patient and verified all cooper points of history and exam, discussed case, and agree with decision making with Dr Rossi. no meaningful HPI or ROS. nursing notes no new issues. (+) BMs. extensive discussions w family as outlined in dr evans's notes. present the entire discussion and offered empathy and support. vitals noted, in bed without meaningful response. breathing unlabored lungs clear, no visible signs of distress or pain. cardio reg. ext no c/c. no focal neuro deficits. cirrhosis, EtOH abuse/withdrawal, withdrawal seizures, acute blood loss anemia, concern on developing hemorrhagic shock, acute decompensated liver failure -supportive care focused on hemodynamics and attempts to treat encephalopathy -Intra-abdominal bleeding noted, appears the bleeding has stopped. No option for surgical intervention. On 10/07 case discussed with interventional radiology at [place], due to lack of a localized blood vessel as well as her coagulopathy, interventional radiology approach would not be feasible. Should she have rebleeding, if localization was able to be obtained with a CT angiogram or bleeding scan (both of which were present their own problemsCT with renal failure, bleeding scan with the time it takes to get a positive result) and we were able to give enough FFP and platelets, then possibly an interventional radiology approach may be undertaken -prednisolone started for alcoholic hepatitis (while she is on empiric antibiotics given the severity of her illness and the concern of anything intra- abdominal, she does not appear to have any major infection of significance), lactulose for hepatic encephalopathy -Empiric antibiotic coverage given massive amount of bleeding into the abdominal cavity (Rocephin and Flagyl) -otherwise as above -family considering options Subjective 48 y/o F found in bed this AM. Pt still obtunded so further subjective hx difficult to obtain. Extensive discussion this AM with living coach and attending about prognosis, what family wants to do moving forward. It seems, family understands medical course moving forward, opted to make pt DNR/DNI. Will need more time to discuss with themselves what other decisions need to be made moving forward in terms or hospice, comfort care, etc. No other acute concerns or complaints. Review of Systems Review of Systems: Unobtainable due to cognitive status Physical Exam Constitutional: + ill appearing Eyes: icteric sclera ENMT: external ear and nose normal, oropharynx normal Respiratory: normal respiratory effort, lungs clear to auscultation Cardiovascular: RRR, no murmur, no edema Gastrointestinal (Abdomen): normal bowel sounds, soft, nontender, no hepatosplenomegaly Skin: no rashes, warm and dry Psychiatric: obtunded Results & Data Vital Signs (Past 12 Hours) Vital Signs Temp Pulse Pulse Resp BP BP Pulse Ox 10/09/18 14:00 74 17 112/82 95 10/09/18 13:01 62 123/75 96 10/09/18 12:23 73 124/88 94 10/09/18 12:15 71 93 10/09/18 12:00 36 C L 69 107/80 90 10/09/18 11:00 71 117/80 98 10/09/18 10:21 75 105/74 98 10/09/18 10:00 66 105/74 95 10/09/18 09:00 67 107/80 95 10/09/18 08:00 36 C L 72 118/85 98 10/09/18 07:00 69 100/79 98 10/09/18 06:00 75 13 130/84 97 10/09/18 05:00 71 13 114/94 98 10/09/18 04:00 36.5 C 71 13 138/99 97 Laboratory Results Laboratory Results - last 24 hr 10/06/18 10/08/18 10/09/18 06:50 19:49 04:33 WBC RBC Hgb Hct MCV MCH MCHC RDW Std Deviation RDW Coeff of Michelle Plt Count MPV Immature Gran % (Auto) Neut % (Auto) Lymph % (Auto) [place] % (Auto) Eos % (Auto) Baso % (Auto) Immature Gran # (Auto) Neut # (Auto) Lymph # (Auto) [place] # (Auto) Eos # (Auto) Baso # (Auto) Giant Platelets Polychromasia Echinocytes PT INR Sodium 140 Potassium 3.6 Chloride 108 H Carbon Dioxide 29 Anion Gap 3.0 BUN 20 H Creatinine 1.73 H D Est Cr Clr Drug Dosing 48.5 Est GFR ( Amer) 39.2 Est GFR (Non-Af Amer) 33.8 BUN/Creatinine Ratio 11.7 Glucose 134 H POC Glucose Calcium 7.1 L Ionized Calcium Phosphorus 1.7 L D Magnesium 3.0 H Total Bilirubin 10.7 H Direct Bilirubin 7.4 H AST 1279 H ALT 486 H Alkaline Phosphatase 180 H Ammonia 182.7 H Total Protein 6.0 L Albumin 2.1 L Globulin 3.9 Albumin/Globulin Ratio 0.5 L Hepatitis A IgM Ab NON-REACTIVE Hep B Core IgM Ab NON-REACTIVE HCV RNA Qual (TMA) DETECTED A 10/09/18 10/09/18 10/09/18 04:33 04:33 04:33 WBC 6.79 RBC 2.85 L Hgb 9.3 L Hct 26.6 L MCV 93.3 MCH 32.6 MCHC 35.0 RDW Std Deviation 64.0 H RDW Coeff of Michelle 19.7 H Plt Count 40 L MPV 11.2 H Immature Gran % (Auto) 0.3 Neut % (Auto) 74.8 Lymph % (Auto) 11.5 [place] % (Auto) 13.4 Eos % (Auto) 0.0 Baso % (Auto) 0.0 Immature Gran # (Auto) 0.02 Neut # (Auto) 5.08 Lymph # (Auto) 0.78 L [place] # (Auto) 0.91 H Eos # (Auto) 0.00 Baso # (Auto) 0.00 Giant Platelets 1+ Polychromasia 1+ Echinocytes 1+ PT 55.5 H INR 6.2 H* Sodium Potassium Chloride Carbon Dioxide Anion Gap BUN Creatinine Est Cr Clr Drug Dosing Est GFR ( Amer) Est GFR (Non-Af Amer) BUN/Creatinine Ratio Glucose POC Glucose Calcium Ionized Calcium 0.99 L Phosphorus Magnesium Total Bilirubin Direct Bilirubin AST ALT Alkaline Phosphatase Ammonia Total Protein Albumin Globulin Albumin/Globulin Ratio Hepatitis A IgM Ab Hep B Core IgM Ab HCV RNA Qual (TMA) 10/09/18 10/09/18 04:33 11:22 WBC RBC Hgb Hct MCV MCH MCHC RDW Std Deviation RDW Coeff of Michelle Plt Count MPV Immature Gran % (Auto) Neut % (Auto) Lymph % (Auto) [place] % (Auto) Eos % (Auto) Baso % (Auto) Immature Gran # (Auto) Neut # (Auto) Lymph # (Auto) [place] # (Auto) Eos # (Auto) Baso # (Auto) Giant Platelets Polychromasia Echinocytes PT INR Sodium Potassium Chloride Carbon Dioxide Anion Gap BUN Creatinine Est Cr Clr Drug Dosing Est GFR ( Amer) Est GFR (Non-Af Amer) BUN/Creatinine Ratio Glucose POC Glucose 126 H Calcium Ionized Calcium Phosphorus Magnesium Total Bilirubin Direct Bilirubin AST ALT Alkaline Phosphatase Ammonia 182.0 H Total Protein Albumin Globulin Albumin/Globulin Ratio Hepatitis A IgM Ab Hep B Core IgM Ab HCV RNA Qual (TMA) Medications Administered Current Inpatient Medications Enteral Nutritional Formula (Peptamen 1.5) 1,000 ml NG Q24H HUGH; Protocol Stop: 11/07/18 15:29 Last Admin: 10/09/18 16:28 Dose: 1,000 ml Documented by: Heparin Sodium (Beef Lung) (Heparin Sod 10 Unit/Ml Flush) 5 ml FLUSH PRN PRN PRN Reason: Flush Stop: 11/06/18 00:19 Thiamine HCl 100 mg/ Syringe 10 mls @ 2 mls/hr IV DAILY HUGH Stop: 11/03/18 22:14 Last Admin: 10/09/18 08:57 Dose: 2 mls/hr Documented by: Ceftriaxone Sodium 2,000 mg/ (Dextrose) 70 mls @ 140 mls/hr IV Q24H HUGH; Protocol Stop: 10/15/18 00:00 Last Infusion: 10/09/18 00:34 Dose: Infused Documented by: Parenteral Electrolytes (Normosol-R) 1,000 mls @ 80 mls/hr IV .[id number] HUGH Stop: 11/04/18 19:59 Last Admin: 10/09/18 10:25 Dose: 80 mls/hr Documented by: Lorazepam (Ativan) 1 mg in 2 mls @ 2 mls/min IV ONE PRN; Protocol PRN Reason: EtoH Withdrawal AWSS 6-10 Stop: 11/05/18 08:54 Folic Acid 1 mg/ Syringe 10 mls @ 5 mls/min IV QAM HUGH Stop: 11/05/18 10:44 Last Admin: 10/09/18 08:57 Dose: 5 mls/min Documented by: Sodium Chloride (Nss) 250 mls @ 15 mls/hr IV .[id number] PRN PRN Reason: For Transfusion Stop: 11/05/18 14:19 Famotidine 20 mg/ Syringe 5 mls @ 2.5 mls/min IV QAM HUGH Stop: 11/08/18 08:59 Last Admin: 10/09/18 08:58 Dose: 2.5 mls/min Documented by: Lactulose (Chronulac) 30 gm GT Q2H HUGH Stop: 11/06/18 08:59 Last Admin: 10/09/18 16:29 Dose: 30 gm Documented by: Prednisone (Prelone) 40 mg PO DAILY HUGH Stop: 11/06/18 08:59 Last Admin: 10/09/18 08:48 Dose: 40 mg Documented by: Propranolol HCl (Inderal) 10 mg PO TID [facility] Stop: 11/04/18 20:59 Last Admin: 10/09/18 14:43 Dose: 10 mg Documented by: Ranitidine HCl (Zantac) 150 mg PO HS [facility] Stop: 11/04/18 20:59 Last Admin: 10/06/18 21:30 Dose: 150 mg Documented by: Rifaximin (Xifaxan) 400 mg PO TID [facility] Stop: 10/18/18 08:59 Last Admin: 10/09/18 14:43 Dose: 400 mg Documented by: Topiramate (Topamax) 100 mg PO BID HUGH Stop: 11/04/18 08:59 Last Admin: 10/08/18 07:58 Dose: 100 mg Documented by: PG Care Time/CCT Total # of Minutes Spent Total Time Spent with Patient: Total time spent is greater than 50% in coordination of care (as documented) at patient's floor/unit and/or counseling p atient: Prolonged Care Time Prolonged Care Time: Yes Total Prolonged Care Time: 45 45 mins in discussions w family separate from pt room but directly related to pt's care Resident Activity Tracking Resident Involvement: Resident Care Provided Care Provided: Adult Hospital Medicine
[2018-10-09] MEDS: PEPTAMEN 1.5 CAL 1,000 ML BAG NG SCH (16:28)
[2018-10-10] MEDS: LACTULOSE SYRUP 30 GM/45 ML UDP GT SCH ×5 (00:25→07:48)
[2018-10-10] MEDS: cefTRIAXone SODIUM 2,000 MG in DEXTROSE 5% 50 ML IV SCH (00:25)
[2018-10-10 05:31] LABS: BUN Creatinine Ratio 14.8 (10-20); Bilirubin Direct 8.6 mg/dl (0-0.2); Bilirubin,Total 12.4 mg/dl (0.2-1); Calcium 7.6 mg/dl (8.5-10.1); Creatinine Clr Calc Pharmacy 54.1 ml/min; Est GFR (African American) 44.1; Phosphorus 1.2 mg/dl (2.5-4.9); Potassium 3.7 mmol/L (3.5-5.1); Total Protein 6.4 gm/dl (6.4-8.2)
[2018-10-10 05:38] LABS: Prothrombin Time 53.8 Seconds (9.0-12.0)
[2018-10-10 05:40] LABS: INR 5.9 (0.9-1.1)
[2018-10-10] MEDS ORDERED: POTASSIUM PHOS 3 MMOL/1 ML INFUSION IV STA (05:49)
[2018-10-10] MEDS ORDERED: POTASSIUM PHOSPHATE 30 MMOL in SODIUM CHLORIDE 0.9% 500 ML IV ONE (06:00)
[2018-10-10] MEDS: PROPRANOLOL HCL 10 MG TAB PO SCH (07:48)
[2018-10-10] MEDS: RIFAXIMIN 200 MG TABLET PO SCH (07:48)
[2018-10-10] MEDS: prednisoLONE SYRUP 15 MG/5 ML BTL PO SCH (07:51)
[2018-10-10] MEDS: THIAMINE HCL 100 MG in SYRINGE 9 ML IV SCH (08:00)
[2018-10-10] MEDS: FOLIC ACID 1 MG in SYRINGE 9.8 ML IV SCH (08:01)
[2018-10-10] MEDS: FAMOTIDINE 20 MG in SYRINGE 3 ML IV SCH (08:01)
--- NOTE | 2018-10-10 09:32 | Critical Care Progress Note ---
Date of Service October 10, 2018 Assessment & Plan (1) Admitted to intensive care unit: (2) Acute encephalopathy: Severe hepatic encephalopathy in the setting of end-stage liver disease due to alcoholic cirrhosis -Discontinue lactulose and vitamin K and NG tube. Transition to hospice anticipated today. (3) Acute alcohol intoxication in patient with alcoholism with blood alcohol level over 0.3: (4) Hyperammonemia: No further blood draws (5) Hepatic insufficiency: Comfort measures only and transition to hospice anticipated today (6) Blood loss anemia: (7) DVT prophylaxis: (8) Pancytopenia: Subjective Patient remains unresponsive with rising ammonia level despite lactulose and very little response to yesterday's dose of vitamin K. Family present at bedside and confirms that they wish to pursue a strictly comfort oriented approach. Transfer to hospice anticipated today. Review of Systems Review of Systems: Unobtainable, comatose Physical Exam Physical Exam: Comatose, unresponsive, anicteric Head normocephalic atraumatic NG tube in place, mucous membranes normal Neck supple R IJ triple-lumen catheter in place site without inflammation Chest coarse breath sounds with scattered rhonchi bilaterally Cardiac regular rhythm no murmurs rubs or gallops Abdomen soft non-tender, normoactive bowel sounds Extremities anasarca present, no cyanosis Skin icteric Neuro nonfocal comatose Constitutional: + ill appearing, + altered mental status and + edematous Eyes: + scleral abnormality Results & Data Vital Signs (Past 12 Hours) Vital Signs Temp Pulse BP Pulse Ox 10/10/18 08:00 36.8 C 73 132/79 93 10/10/18 07:00 73 126/76 92 10/10/18 03:00 75 128/80 92 10/10/18 02:00 73 119/78 92 10/10/18 01:00 75 127/79 95 10/10/18 00:00 37.1 C 74 125/78 93 10/09/18 23:00 74 109/78 95 10/09/18 22:00 75 123/79 93
--- NOTE | 2018-10-10 10:24 | Palliative Care Progress Note ---
Date of Service October 10, 2018 Assessment & Plan (1) Palliative care encounter: This is a 48 year old unfortunate female who has a long standing history of end-stage liver failure with alcohol cirrhosis with 10 hospital admissions since November 2017 for hepatic encephalopathy, pancreatitis and seizures. The patient also has an underlying PMH of mental health issues that includes bipolar disorder and schizophrenia. The patient has been unresponsive over the past 24 hours and has a MELD score now of 41 based on her recent lab values. On this admission a CT scan did show hemoperitoneum and her CAMILA > 0.3. She has been receiving conservative treatment with Lactulose Q2 hours, and Vitamin K, along with tube feedings and electrolyte replacement. The patients INR is 6.2, creatinine 1.73, TBili 10.7 and Ammonia 182. The patient's family including her mother, step father, and boyfriend met with the [facility] and Hospitalist team to discuss goals of care where her code status was changed to a DNR. Palliative Care was consulted to discuss Hospice options and continue goals transition. -I met with patient who was obtunded, patient mother Lia, and step-father. -Continued conversation from yesterday, [facility] met with them this morning on a separate occasion and family decided to transition to full comfort measures with NO escalation in care including no blood draws or vital sign monitoring. -Patient lung sounds and presentation worse compared to yesterday. Today she is audible coarse from the doorway and is starting to use accessory muscles to breathe. Her SPO2 has dropped to low 90's and is requiring increasing liters of supplemental O2. -Continued to offer support to family. Per family, patient's boyfriend is not reachable by phone and they said "He may not even want to be here" -I did express that the patient is not on life-support per say at this time, and I do not anticipate that when we discontinue fluids, electrolyte replacement, tube feedings, and lactulose that she will pass away immediately as she is young and otherwise hemodynamically stable. Pt HR/BP regular. -We will continue to evaluate how she does with a comfort transition and then discuss stability of out of hospital transfer, of course, if this is necessary. -We will continue to provide support to this family as they enter the decision making process for their family member. -PPS: 10% (2) Acute alcohol intoxication in patient with alcoholism with blood alcohol level over 0.3: (3) Thrombocytopenia: (4) Schizoaffective disorder: (5) Elevated LFTs: Subjective Patient obtunded in the bed. ROS unable to be obtained d/t cognitive changes. Please see A/P for further detailed discussion I held with patient Mother and step-father. Review of Systems Review of Systems: Unobtainable due to cognitive status Physical Exam Constitutional: + ill appearing Eyes: PERRL, conjunctivae normal, anicteric sclerae ENMT: external ear and nose normal, oropharynx normal Neck: trachea midline, no thyromegaly Respiratory: + uses accessory muscles Auscultation: + rhonchi Cardiovascular: RRR, no murmur, no edema Gastrointestinal (Abdomen): Inspection/Auscultation: abdomen normal to inspection and normal bowel sounds; abdomen not distended Skin: + jaundice Genitourinary: small with dark yellow urine Lymphatic: no cervical or axillary lymphadenopathy Results & Data Vital Signs (Past 12 Hours) Vital Signs Temp Pulse BP Pulse Ox 10/10/18 08:00 36.8 C 73 132/79 93 10/10/18 07:00 73 126/76 92 10/10/18 03:00 75 128/80 92 10/10/18 02:00 73 119/78 92 10/10/18 01:00 75 127/79 95 10/10/18 00:00 37.1 C 74 125/78 93 10/09/18 23:00 74 109/78 95 PG Care Time/CCT Prolonged Care Time Prolonged Care Time: Yes Total Prolonged Care Time: 45 Time Spent Midlevel Total time spent 45 minutes with > 50% of that time spent assessing patient, managing symptoms and discussing end of life
[2018-10-10] MEDS ORDERED: ATROPINE SULFATE 1% OP SOLN 5 ML BTL OP PRN (10:25)
[2018-10-10] MEDS: MoRPHine SULFATE 2 MG/ML CARP IV PRN ×2 (11:23→13:04)
[2018-10-10] MEDS: NORMOSOL-R 1,000 ML IV SCH (11:25)
[2018-10-10 12:31] VITALS: TEMP 99.1
--- NOTE | 2018-10-10 13:54 | Family Medicine Progress Note ---
Date of Service October 10, 2018 Assessment & Plan (1) Elevated LFTs: 48 y/o female with chronic Hx of alcohol abuse presenting with seizures likely related to alcohol withdrawal. Acute encephalopathy -2/2 chronic alcoholism, renal failure and liver failure -phenobarb dc'd. Will cont MV's, thiamine, and benzodiazepines to prevent withdrawal -D/C Lactulose and Rifaximin for hepatic encephalopathy -family has chosen moving to supportive care Anemia -No s/s of GI bleeding, no vomiting of blood or blood per rectum. NG placed and no blood, so no UGI bleeding. Considering retroperitoneal bleed/Intra-abdominal. No hx of varices--> octreotide -Will cont PPI ranitidine and Protonix for PUD -D/C Supportive care focused on hemodynamics -CT Abd: Moderate ascites with hematocrit effect within the pelvis consistent with hemoperitoneum. The amount of blood is difficult to quantify but likely moderate -Sx: pt is not a surgical candidate with her current hepatic function and coagulopathy especially in light of her ascites pro time and platelet count [place]: due to lack of a localized blood vessel as well as her coagulopathy, IR approach not feasible either. If pt has rebleeding and if localization was able to be obtained with a CTA or bleeding scan, then possible IR approach given we are able to give enough FFP and platelets -Placed on ceftriaxone/flagyl for empiric coverage 2/2 abd bleeding. Also E Coli in urine coverage. This is now D/C'd. -family has chosen moving to supportive care Acute liver failure/Cirrhosis -Rising INR and LFT initially suggested acute liver failure on top of known cirrhosis. Loss of synthetic capability and shock liver. Now, LFTs have actually plateaued -very poor prognosis, will cont supportive care. Not a liver transplant candidate given ETOH use -Cirrhosis- from ETOH. Prelim Hep C positive. Other serology pending. -Pt with ascites and cirrhosis noted on abd US this visit -D/C Prednisolone 40 mg for alcoholic hepatitis -family has chosen moving to supportive care ARF -Nephro: if no improvement, would not recommend dialysis , considering ESLD. Overall prognosis guarded -will avoid nephrotoxins -developing hepatorenal syndrome in the setting of acute hepatic failure and chronic alcoholic cirrhosis -family has chosen moving to supportive care Elevated lactic acid -Could be septic vs ischemic bowel. As above, supportive care as she is not a surgical candidate Seizure -Likely due to acute alcohol withdrawal -continue Topamax FEN- NPO currently DVT Prophylaxis: low risk Full Code Dispo: Med Surg. Comfort Care Measures only. Supervising Physician Co-Signing Physician Notes I personally examined the patient and verified all cooper points of history and exam, discussed case, and agree with decision making with Dr Rossi. no meaningful HPI or ROS. Discussed with palliative service, input and assistance appreciated. vitals noted, in bed without meaningful response. breathing unlabored but has snoring respirations. no visible signs of distress or pain. no focal neuro deficits. cirrhosis, EtOH abuse/withdrawal, withdrawal seizures, acute blood loss anemia, concern on developing hemorrhagic shock, acute decompensated liver failurenow moving towards more of a comfort/palliative mode of care. -Unfortunately despite days of aggressive supportive care, steroids, etc., patient's hepatic failure has not shown signs of stabilization, and especially given her refractory hepatic encephalopathy in spite of near massive treatment with lactulose and rifaximin, she is showing no signs of improvement. Her bilirubin and INR continue to be a cause of concern, and she is not really showing any meaningful signs of improvement. Family is deciding to change her plan of care to much more of a palliative mode, and given her lack of improvement despite days of aggressive supportive care, this appears to be quite reasonable, if not unfortunate that she has deteriorated to this point, given Mary's overall situation. Subjective 48 y/o F found in bed this AM still obtunded. No reports of overnight events. Further subjective hx difficult to obtain. Family has chosen comfort measures today. No other acute concerns or complaints. Review of Systems Review of Systems: All systems reviewed & are unremarkable except as noted in HPI & below Physical Exam Constitutional: + ill appearing ENMT: external ear and nose normal, oropharynx normal Respiratory: coarse breath sounds Cardiovascular: RRR, no murmur, no edema Gastrointestinal (Abdomen): normal bowel sounds, soft, nontender, no hepatosplenomegaly Skin: no rashes, warm and dry Psychiatric: obtunded Results & Data Vital Signs (Past 12 Hours) Vital Signs Temp Pulse Resp BP Pulse Ox 10/10/18 12:00 37.3 C 74 21 138/90 92 10/10/18 11:00 75 24 137/85 92 10/10/18 10:27 91 10/10/18 10:00 74 25 H 137/83 90 06/14/19 09:00 75 131/85 91 10/10/18 08:00 36.8 C 73 132/79 93 10/10/18 07:00 73 126/76 92 10/10/18 03:00 75 128/80 92 10/10/18 02:00 73 119/78 92 Laboratory Results Laboratory Results - last 24 hr 10/07/18 10/09/18 10/10/18 17:16 17:50 04:39 PT INR Sodium 151 H D Potassium 3.7 Chloride 119 H Carbon Dioxide 30 Anion Gap 2.0 L BUN 23 H Creatinine 1.57 H Est Cr Clr Drug Dosing 54.1 Est GFR ( Amer) 44.1 Est GFR (Non-Af Amer) 38.0 BUN/Creatinine Ratio 14.8 Glucose 145 H POC Glucose 150 H Calcium 7.6 L Ionized Calcium Phosphorus 1.2 L* Total Bilirubin 12.4 H Direct Bilirubin 8.6 H AST 664 H ALT 364 H Alkaline Phosphatase 198 H Ammonia Total Protein 6.4 Albumin 2.0 L Crossmatch See Detail 10/10/18 10/10/18 10/10/18 04:39 04:42 04:42 PT 53.8 H INR 5.9 H* Sodium Potassium Chloride Carbon Dioxide Anion Gap BUN Creatinine Est Cr Clr Drug Dosing Est GFR ( Amer) Est GFR (Non-Af Amer) BUN/Creatinine Ratio Glucose POC Glucose Calcium Ionized Calcium 1.03 L Phosphorus Total Bilirubin Direct Bilirubin AST ALT Alkaline Phosphatase Ammonia 204.0 H Total Protein Albumin Crossmatch Medications Administered Current Inpatient Medications Atropine Sulfate (Atropine Sulfate 1% Oph) 4 drops OP Q2H PRN PRN Reason: secretions Stop: 11/09/18 10:29 Parenteral Electrolytes (Normosol-R) 1,000 mls @ 80 mls/hr IV .[id number] HUGH Stop: 11/04/18 19:59 Last Admin: 10/10/18 11:25 Dose: 80 mls/hr Documented by: Lorazepam (Ativan) 1 mg in 2 mls @ 2 mls/min IV ONE PRN; Protocol PRN Reason: EtoH Withdrawal AWSS 6-10 Stop: 11/05/18 08:54 Sodium Chloride (Nss) 250 mls @ 15 mls/hr IV .[id number] PRN PRN Reason: For Transfusion Stop: 11/05/18 14:19 Morphine Sulfate (Morphine Sulfate) 2 mg IV Q2H PRN PRN Reason: Pain Stop: 10/24/18 10:24 Last Admin: 10/10/18 13:04 Dose: 2 mg Documented by: Ranitidine HCl (Zantac) 150 mg PO HS [facility] Stop: 11/04/18 20:59 Last Admin: 10/06/18 21:30 Dose: 150 mg Documented by: Topiramate (Topamax) 100 mg PO BID HUGH Stop: 11/04/18 08:59 Last Admin: 10/08/18 07:58 Dose: 100 mg Documented by: PG Care Time/CCT Total # of Minutes Spent Total Time Spent with Patient: Total time spent is greater than 50% in coordination of care (as documented) at patient's floor/unit and/or counseling patient: Resident Activity Tracking Resident Involvement: Resident Care Provided Care Provided: Adult Hospital Medicine
[2018-10-10 14:39] VITALS: BP 142/88; PULSE 80; O2SAT 91
[2018-10-10] MEDS: TOPIRAMATE 100 MG TAB PO SCH (19:14)
[2018-10-11] MEDS: NORMOSOL-R 1,000 ML IV SCH (02:08)
[2018-10-11] MEDS: MoRPHine SULFATE 2 MG/ML CARP IV PRN ×2 (02:09→07:28)
[2018-10-11] MEDS: LORazepam 1 MG/2 ML VIAL IV PRN ×2 (03:10→07:27)
[2018-10-11] MEDS ORDERED: LORazepam 0.5 MG/1 ML VIAL IV PRN (07:31)
[2018-10-11] MEDS ORDERED: MoRPHine SULF/NSS 250 MG/250 ML BTL IV SCH (07:45)
[2018-10-11] MEDS: TOPIRAMATE 100 MG TAB PO SCH ×2 (09:43→20:30)
--- NOTE | 2018-10-11 12:32 | Family Medicine Progress Note ---
Date of Service October 11, 2018 Assessment & Plan (1) Elevated LFTs: 48 y/o female with chronic Hx of alcohol abuse presenting with seizures likely related to alcohol withdrawal. Acute encephalopathy -2/2 chronic alcoholism, renal failure and liver failure -phenobarb dc'd. Will cont MV's, thiamine, and benzodiazepines to prevent withdrawal -D/C Lactulose and Rifaximin for hepatic encephalopathy -family has chosen moving to supportive care Anemia -No s/s of GI bleeding, no vomiting of blood or blood per rectum. NG placed and no blood, so no UGI bleeding. Considering retroperitoneal bleed/Intra-abdominal. No hx of varices--> octreotide -Will cont PPI ranitidine and Protonix for PUD -D/C Supportive care focused on hemodynamics -CT Abd: Moderate ascites with hematocrit effect within the pelvis consistent with hemoperitoneum. The amount of blood is difficult to quantify but likely moderate -Sx: pt is not a surgical candidate with her current hepatic function and coagulopathy especially in light of her ascites pro time and platelet count -[facility] [place] [facility]: due to lack of a localized blood vessel as well as her coagulopathy, IR approach not feasible either. If pt has rebleeding and if localization was able to be obtained with a CTA or bleeding scan, then possible IR approach given we are able to give enough FFP and platelets -Placed on ceftriaxone/flagyl for empiric coverage 2/2 abd bleeding. Also E Coli in urine coverage. This is now D/C'd. -family has chosen moving to supportive care Acute liver failure/Cirrhosis -Rising INR and LFT initially suggested acute liver failure on top of known cirrhosis. Loss of synthetic capability and shock liver. Now, LFTs have actually plateaued -very poor prognosis, will cont supportive care. Not a liver transplant candidate given ETOH use -Cirrhosis- from ETOH. Prelim Hep C positive. Other serology pending. -Pt with ascites and cirrhosis noted on abd US this visit -D/C Prednisolone 40 mg for alcoholic hepatitis -family has chosen moving to supportive care ARF -Nephro: if no improvement, would not recommend dialysis , considering ESLD. Overall prognosis guarded -will avoid nephrotoxins -developing hepatorenal syndrome in the setting of acute hepatic failure and chronic alcoholic cirrhosis -family has chosen moving to supportive care Elevated lactic acid -Could be septic vs ischemic bowel. As above, supportive care as she is not a surgical candidate Seizure -Likely due to acute alcohol withdrawal -continue Topamax FEN- NPO currently DVT Prophylaxis: low risk Full Code Dispo: Med Surg. Comfort Care Measures only. Supervising Physician Co-Signing Physician Notes I personally examined the patient and verified all cooper points of history and exam, discussed case, and agree with decision making with Dr Rossi. no meaningful HPI or ROS. d/w nursing, was worse w restless/discomfort early AM. vitals noted, in bed without meaningful response. breathing unlabored but has snoring respirations, almost working towards agonal. no visible signs of distress or pain now. no focal neuro deficits. cirrhosis, EtOH abuse/withdrawal, withdrawal seizures, acute blood loss anemia, concern on developing hemorrhagic shock, acute decompensated liver failurenow moving towards more of a comfort/palliative mode of care. -Unfortunately despite days of aggressive supportive care, steroids, etc., patient's hepatic failure has not shown signs of stabilization, and especially given her refractory hepatic encephalopathy in spite of near massive treatment with lactulose and rifaximin, she is showing no signs of improvement. Her bilirubin and INR continue to be a cause of concern, and she is not really showing any meaningful signs of improvement. now comfort care - required escalation of morphine early this AM. d/w nursing to titrate gtt to be reactive to symptom needs, but given her discomfort earlier, OK to use as needed at this time. Subjective 48 y/o F found in bed this AM still obtunded. No reports of overnight events. Further subjective hx difficult to obtain. Family has chosen comfort measures today. Morphine gtt started. No other acute concerns or complaints. Review of Systems Review of Systems: All systems reviewed & are unremarkable except as noted in HPI & below Physical Exam Constitutional: + ill appearing ENMT: external ear and nose normal, oropharynx normal Respiratory: normal respiratory effort, lungs clear to auscultation Cardiovascular: RRR, no murmur, no edema Gastrointestinal (Abdomen): normal bowel sounds, soft, nontender, no hepatosplenomegaly Skin: no rashes, warm and dry extremely jaundiced Neurologic: obtunded Results & Data Laboratory Results Laboratory Results - last 24 hr 10/07/18 17:16 Crossmatch See Detail Medications Administered Current Inpatient Medications Atropine Sulfate (Atropine Sulfate 1% Oph) 4 drops OP Q2H PRN PRN Reason: secretions Stop: 11/09/18 10:29 Lorazepam (Ativan) 1 mg in 2 mls @ 2 mls/min IV ONE PRN; Protocol PRN Reason: EtoH Withdrawal AWSS 6-10 Stop: 11/05/18 08:54 Last Admin: 10/11/18 07:27 Dose: 2 mls/min Documented by: Sodium Chloride (Nss) 250 mls @ 15 mls/hr IV .[id number] PRN PRN Reason: For Transfusion Stop: 11/05/18 14:19 Lorazepam (Ativan) 0.5 mg in 1 mls @ 0.5 mls/min IV Q1H PRN PRN Reason: Agitation Stop: 11/10/18 07:30 Morphine Sulfate (Morphine Sulf/Nss) 250 mg in 250 mls @ 2 mls/hr IV .Q24H HUGH; Protocol Stop: 10/25/18 07:44 Last Titration: 10/11/18 09:47 Dose: 2 mg/hr, 2 mls/hr Documented by: Morphine Sulfate (Morphine Sulfate) 2 mg IV Q2H PRN PRN Reason: Pain Stop: 10/24/18 10:24 Last Admin: 10/11/18 07:28 Dose: 2 mg Documented by: Ranitidine HCl (Zantac) 150 mg PO HS HUGH Stop: 11/04/18 20:59 Last Admin: 10/10/18 19:15 Dose: Not Given Documented by: Topiramate (Topamax) 100 mg PO BID HUGH Stop: 11/04/18 08:59 Last Admin: 10/11/18 09:43 Dose: Not Given Documented by: PG Care Time/CCT Total # of Minutes Spent Total Time Spent with Patient: Total time spent is greater than 50% in coordination of care (as documented) at patient's floor/unit and/or counseling patient: Resident Activity Tracking Resident Involvement: Resident Care Provided Care Provided: Adult Hospital Medicine
--- NOTE | 2018-10-11 21:10 | Death Summary ---
Date of Service October 11, 2018 Pronouncement Note Date and Time of Date of : 10/11/18 Time of : 08:45 PCOD Preliminary cause of : Liver failure Contributing Factors (1) Elevated LFTs: Summary Additional details: Called to see patient at 0845 for unresponsiveness. On exam the patient did not respond to verbal or physical stimuli. Absent heart and breath sounds Absent peripheral pulses. Pupils are fixed and dilated. Patient pronounced at 2100 (24 hour format).Next of kin (sister) in the room notified. Additional Data Confirmation of : no heart sounds and pupils fixed and dilated Family: at bedside Attending/PCP notified?: No Attending physician: Alex Hayden, DO Was code activated?: No tax examiner notified?: No Organ bank notified?: No
--- NOTE | 2018-10-12 12:00 | Discharge Summary ---
Date of Service October 12, 2018 SUMMARY Admission HPI Per Admitting Provider Mary Barros is a 48yo C female with longstanding history of EtOH abuse resulting in multiple medical complications - pancytopenia, cirrhosis, gastritis, electrolyte abnormality, pancreatitis, confabulation, withdrawal in the past with DTs and seizures. Multiple EtOH related hospitalizations. She presents today after having 3 seizures at home yesterday. This AM she reports developing nausea with vomiting, reports vomit being dark brown in color, no hematemesis or coffee ground material. Also with abdominal pain. She reports subjective fevers/chills/sweats, loss of appetite, dark urine and headache. Denies other drug use. Patient drinks one case of high EtOH beer daily (8%). Last drink was this AM at 02:00. ER Course: Ativan 2mg IV, Banana bag Principal Diagnosis fulminant hepatic failure Discharge Data Allergies Allergy/AdvReac Type Severity Reaction Status Date / Time acetaminophen [From Tylenol] AdvReac Intermediate HX Verified 10/04/18 19:22 CIRRHOSIS NSAIDS (Non-Steroidal AdvReac Intermediate HX Verified 10/04/18 19:22 Anti-Inflamma CIRRHOSIS phenytoin AdvReac Intermediate LOSS OF Verified 10/04/18 19:22 EQUILIBRIUM Consultations 10/04/18 19:37 ED Decision to Admit Stat 10/04/18 21:55 Consult Case Management - Discharge Planning Routine 10/05/18 18:07 Consult Bunghole Borer Routine 10/06/18 14:03 Consult Gastroenterology Routine 10/06/18 14:39 Consult Nephrology Stat 10/07/18 11:23 Consult General Surgery Routine 10/09/18 10:18 Consult Palliative Care Routine Procedures Performed Operation Date: 10/06/18 14:40 <No data on this case meets the specified criteria> Ordered Studies 10/04/18 23:36 US abdomen limited Routine 10/05/18 00:58 US abdomen ltd ascites Routine 10/06/18 08:26 US point of care ultrasound Routine 10/07/18 08:01 CT abd pelvis oral con only Urgent 10/07/18 09:08 CT head/brain wo con Urgent Hospital Course (1) Elevated LFTs: SUMMARY 48 y/o female with chronic Hx of alcohol abuse presented with seizures likely related to alcohol withdrawal. This pt was unfortunately very familiar to medicine team with multiple previous visits. The following was the management during stay here. Acute encephalopathy -This was likely 2/2 chronic alcoholism, renal failure and liver failure. Pt was temporarily on phenobarb in the ICU, but this was dc'd, and pt was continued on MV's, thiamine, and benzodiazepines to prevent withdrawal. Given high ammonia levels, we tried Lactulose and Rifaximin for hepatic encephalopathy; however, this was dc'd after family moved to supportive care. Anemia -Pt had no s/s of GI bleeding, no vomiting of blood or blood per rectum. NG placed and no blood, so no UGI bleeding. We cont PPI ranitidine and Protonix for PUD for a while. For the large part, supportive care focused on hemodynamics was pursued. CT Abd showed moderate ascites with hematocrit effect within the pelvis consistent with hemoperitoneum. The amount of blood is difficult to quantify but likely moderate. Sx was consulted and noted pt is not a surgical candidate with her current hepatic function and coagulopathy especially in light of her ascites pro time and platelet count . We also reached out to [facility] who noted due to lack of a localized blood vessel as well as her coagulopathy, IR approach not feasible either. Ultimately, we focused on supportive care as above. Acute liver failure/Cirrhosis -Pt's rising INR and LFT initially suggested acute liver failure on top of known cirrhosis. Loss of synthetic capability and shock liver. Obviously there was a very poor prognosis, and we cont supportive care. Pt was not a liver transplant candidate given ETOH use. We gave Prednisolone 40 mg for alcoholic hepatitis, but as above this was dc'd as family had chosen moving to supportive care. 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 We avoided nephrotoxins. Thought that pt was developing hepatorenal syndrome in the setting of acute hepatic failure and chronic alcoholic cirrhosis. As above, family chose supportive care. 24 hrs after initiating supportive care, pt . See separate pronouncement note. Total Time Total Time Spent Total Time Spent (In Minutes): 30 min Discharge Plan Discharge Items Patient Disposition: Reason For Visit: ETOH WITHDRAWAL Follow-up/Referrals: Marjorie Del Castillo, TimothyPCarito [Primary Care Provider] - Admission Data Admit Date/Time: 10/04/18 21:33 Attending Provider: Alex Hayden Admit Provider: Aaliyah Baptiste Primary Care Provider: Marjorie Del Castillo Other Providers: Meka Garcia ; Harjinder Sadler ; Aaliyah Baptiste ; Valentino Sanchez ; Orlando Bills ; Sonja Link ; Franklin Britton ; Gauri Rascon Service: Medical Other DC Date/Time DO NOT enter until pt leaves facility: 10/11/18 23:00 Resident Activity Tracking Resident Involvement: Resident Care Provided Care Provided: Adult Hospital Medicine
== END 2018-10-11 23:00 | disposition expired | DRG 896 ==
LOC: ED 18:24 → 2S 21:33 → SUATTDRO 21:33 → 2S 21:46 → 1E 10-05 17:27 → 4E 10-10 14:49